=== PATIENT | male | born 1945 | race Caucasian/White ===

== ENCOUNTER → 2017-10-11 10:13 | Outpatient (CLI) | payer MEDICARE, BC, SELFPAY ==
[2017-10-12 05:15] LABS: Hemoglobin A1C% w Est Avg Glu 6.1 % (4.0-6.0)
== END ==
PROVIDERS: PCP Family Medicine; Visit Provider Family Medicine
DX: E11.9 Type 2 diabetes mellitus without complications (principal)
CPT/HCPCS: 36415; 83036

== ENCOUNTER → 2018-02-15 09:44 | Outpatient (CLI) | payer MEDICARE, BC, SELFPAY | PROVIDERS: Family Provider Family Medicine; PCP Family Medicine; Visit Provider Urology | DX: Z12.5 Encounter for screening for malignant neoplasm of prostate (principal); R39.9 Unspecified symptoms and signs involving the genitourinary system | CPT/HCPCS: 36415; 84153 ==

== ENCOUNTER 2018-07-06 07:30 | Outpatient (RCR) | payer MEDICARE, BC, SELFPAY ==
--- NOTE | 2018-01-18 18:31 | PT.OIE ---
Current Diagnoses Pain in right knee (01/18/18) Pain in left knee (01/18/18) Difficulty in walking, not elsewhere classified (01/18/18) Abnormal posture (01/18/18) Weakness (01/18/18) Presence of right artificial knee joint (01/18/18) Past Medical History (Last Updated 01/18/18 @ 16:26 by Denia Low, PT) Fusion of lumbar spine (Acute) Osteoarthritis (Acute) Painful total knee replacement, right (Acute) Past Surgical History (Last Updated 01/18/18 @ 16:20 by Denia Low, PT) History of total replacement of right shoulder joint (Acute) S/p reverse total shoulder arthroplasty (Acute) Provider Visit Care Team Role Provider Type Sourav Gamboa MD Primary Care Provider Non-Staff Specialty: Medical Address: [address] [place] [address], [id number] Email: Fabrizio Grimes MD Attending Provider Physician Specialty: Orthopedic Surgery Address: [address] [place] [address], [id number] Email: [email or web address] Physical Therapy Initial Evaluation PT-OP-A Visit Information Start: 01/18/18 13:39 Freq: Status: Active Protocol: Document 01/18/18 16:07 [facility] (Rec: 01/18/18 16:49 [facility] [id number]) Out-Patient Physical Therapy Visit Information Visit Information Visit Type Initial Evaluation Visit Start Time 16:00 Visit Stop Time 16:45 Total Visit Minutes 45 Visit Number 1/10 Number of GATE CUTTER Visits 0 PT-OP-B Current Condition Start: 01/18/18 13:39 Freq: Status: Active Protocol: Document 01/18/18 16:07 [facility] (Rec: 01/18/18 16:49 [facility] [id number]) Current Condition History of Current Condition Current Complaints B knee pain History of Current Condition Pt reports that his R knee feels very tight in the ant and lat surface distally. Pt reports L knee also gives him pain. Pain level is dependent on time of day and amount of walk, pain is between 2-4/10. Even as far as walking 100 m into a store, can create pain in knees and he has pain in B hips and it feels like he is wading through water. Reports 5 years ago he used to be able to walk 9 miles into a station, stay 9 hours then 9 miles back when he worked at the [email or web address]. Pt reports 6x/week he does about 40-50 min on recumbant bike without pain. Pt reports 2 laps (~.5 miles) in [employer] would make him very painful. Pt reports he wants to be able to walk as he used to be able to for exercise. Reports sit to stand is more difficult and from low chairs, he requires use of his UEs and is unable to get up/down from ground, which is difficulty for him d/ t wrist & shoulder pain. 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 Prior Treatments and Tests 1.5 yrs ago rehab for R TKA Treatment Goals Patient/Caregiver Goals Would like to be able to do a mile after PT and plans to cont PT program to improve that to infinate. PT-OP-C Subjective Start: 01/18/18 13:39 Freq: Status: Active Protocol: Document 01/18/18 16:07 [facility] (Rec: 01/18/18 16:49 [facility] [id number]) Patient Questionnaires Lower Extremity Functional Scale LEFS Score 42 LEFS Impairment 40 to 59% Impaired (Score 32- 47) OP-PT Pain Assessment Location B knees Pain Location Details B knees & hips Scale Used Numeric (1 - 10) Description- Other stiffness/discomfort Frequency Daily Pain Duration 7/10 when on his knees Variations/Patterns 2-4/10 Pain Aggravating Factors Sitting Walking Other Pain Aggravating Factors get out of low chair, crawling on knees, getting up from knees Other Pain Alleviating Factors heat from hands, rub it PT-OP-G Mobility & Gait Start: 01/18/18 13:39 Freq: Status: Active Protocol: Document 01/18/18 16:07 [facility] (Rec: 01/18/18 16:49 [facility] [id number]) OP Gait Assessment Comments Gait Comments Pt initiates gait with fwd & lat trunk lean. He has excessive lat leaning of trunk with gait with WB and primary use of LEs to propel himself without any trunk elevation or depression. PT-OP-J Posture/Palpation/Skin Start: 01/18/18 13:39 Freq: Status: Active Protocol: Document 01/18/18 16:07 [facility] (Rec: 01/18/18 17:48 [facility] [id number]) Posture Evaluation [facility] Postural Classification System Margaux Postural Classifications Anterior/Posterior PT-OP-K Range of Motion Start: 01/18/18 13:39 Freq: Status: Active Protocol: Document 01/18/18 16:07 [facility] (Rec: 01/18/18 16:49 [facility] [id number]) Hip Goniometric Range of Motion Hip Measured in Degrees Right Active Testing Position Supine Flexion w/Knee Flexed 95 Left Active Testing Position Supine Flexion w/Knee Flexed 113 Knee Goniometric Range of Motion Knee Measured in Degrees Right Patient Position Supine Flexion Active (degrees) 128 Extension Active (degrees) 3 Left Patient Position Supine Flexion Active (degrees) 129 Extension Active (degrees) 5 PT-OP-L Special Tests Start: 01/18/18 13:39 Freq: Status: Active Protocol: Document 01/18/18 16:07 [facility] (Rec: 01/18/18 16:49 [facility] [id number]) Special Tests Lumbar Spine Special Tests Straight Leg Raise Test Results neg B; slight tight HS with just under 90 deg L Comments about 75 deg hip flex w/ pain in post knee R & HS tightness PT-OP-M Strength Start: 01/18/18 13:39 Freq: Status: Active Protocol: Document 01/18/18 16:07 [facility] (Rec: 01/18/18 16:49 [facility] [id number]) Hip Strength Hip Manual Muscle Testing Right Flexion (L2) 4 Good Extension (S1) 4+ Good+ Abduction 3+ Fair+ External Rotation 5 Normal Internal Rotation 4+ Good+ Comments med knee pain w/ER; discomfort lat hip w/ abd with limited range Left Flexion (L2) 4 Good Extension (S1) 4 Good Abduction 3+ Fair+ External Rotation 5 Normal Internal Rotation 4+ Good+ Comments pain in LB with ext; very limited in abd ROM Knee Strength Knee Manual Muscle Testing Right Flexion (S2) 5 Normal Extension (L3) 5 Normal Left Flexion (S2) 5 Normal Extension (L3) 5 Normal Ankle/Foot Strength Ankle and Foot Manual Muscle Testing Right Dorsiflexion (L4) 5 Normal Plantarflexion (S1) 5 Normal Left Dorsiflexion (L4) 5 Normal Plantarflexion (S1) 5 Normal PT-OP-T Assessment and Plan Start: 01/18/18 13:39 Freq: Status: Active Protocol: Document 01/18/18 18:17 ML (Rec: 01/18/18 18:31 ML [id number]) Physical Therapy Assessment Rehab Potential Rehabilitation Potential Good Evaluation Complexity Number of Personal Factors/Comorbidities 3 or More Number of Body Systems Impaired 4 or More Clinical Presentation at Evaluation Evolving Impairments Impairments Activity Tolerance Balance Functional Activities Functional Mobility Gait Pain Posture ROM Soft Tissue Mobility Strength Goals 3 Impairment dec mobility Short Term Goal (STG) Pt will be able to get up from a low chair without UE support. STG Duration 02/17/18 Sole Rounder Goal (LTG) Pt will be able to walk 1 mile . LTG Duration 03/20/18 2 Impairment pain Short Term Goal (STG) Pt's pain will dec to no greater than 2/10 after short bouts of ambulation. STG Duration 02/17/18 Sole Rounder Goal (LTG) Pt's pain when on his knees will dec to 3/10 with knee pads. LTG Duration 03/20/18 1 Impairment dec strength Short Term Goal (STG) Pt will be independent with HEP in order to inc strength. STG Duration 02/17/18 Skilled Nursing Goal (LTG) Pt will have LE strength of 4/ 5 bilaterally. LTG Duration 03/20/18 Assessment Summary Assessment Pt presents to PT with bilateral hip and knee pain. Pt has pain daily, especially following activity such as walking, and severely with activities on his knees. The pt has dec strength and mobility as well as an antalgic gait. The pt desires to be able to participate in functional activities that involve those motions with the strength to do so and with less pain. Pt will benefit from skilled PT in order to achieve these goals. Physical Therapy Plan Frequency and Duration Frequency of Treatment 2x/Week Duration of Treatment 2 months Plan of Care Start Date 01/18/19 Plan of Care End Date 03/20/18 Therapeutic Interventions Therapeutic Interventions Aquatic Therapy Balance Training Coordination Training Gait Training Home Exercise Program Joint Mobilizations Manual Therapy Neuromuscular Re-education Patient/Caregiver Education Self-Care/Home Management Soft Tissue Mobilization Taping Therapeutic Activities Therapeutic Exercises Modalities Cold Pack/Ice Massage Electric Stimulation Hot Packs Infrared Therapy Iontophoresis Traction- Mechanical Ultrasound Next Visit Focus/Plan Next Note Type Treatment Note Next Visit Plan HEP (hip abd, hip ext/bridge, clamshells, rigoberto test stretch), PNF pelvis, posture
--- NOTE | 2018-01-18 18:35 | PT.OPPOC ---
Current Diagnoses Pain in right knee (01/18/18) Pain in left knee (01/18/18) Difficulty in walking, not elsewhere classified (01/18/18) Abnormal posture (01/18/18) Weakness (01/18/18) Presence of right artificial knee joint (01/18/18) Provider Visit Care Team Role Provider Type Sourav Gamboa MD Primary Care Provider Non-Staff Specialty: Medical Address: [address] [place] [address], [place], [address] Email: Fabrizio Grimes MD Attending Provider Physician Specialty: Orthopedic Surgery Address: [address] [place] [address], [place], [address] Email: .[email or web address] Plan Of Care PT-OP-T Assessment and Plan Start: 01/18/18 13:39 Freq: Status: Active Protocol: Document 01/18/18 16:07 ML (Rec: 01/18/18 18:31 ML [id number]) Physical Therapy Assessment Rehab Potential Rehabilitation Potential Good Evaluation Complexity Number of Personal Factors/Comorbidities 3 or More Number of Body Systems Impaired 4 or More Clinical Presentation at Evaluation Evolving Impairments Impairments Activity Tolerance Balance Functional Activities Functional Mobility Gait Pain Posture ROM Soft Tissue Mobility Strength Goals 3 Impairment dec mobility Short Term Goal (STG) Pt will be able to get up from a low chair without UE support. STG Duration 02/17/18 Store Product Demonstrator Goal (LTG) Pt will be able to walk 1 mile . LTG Duration 03/20/18 2 Impairment pain Short Term Goal (STG) Pt's pain will dec to no greater than 2/10 after short bouts of ambulation. STG Duration 02/17/18 Longterm Goal (LTG) Pt's pain when on his knees will dec to 3/10 with knee pads. LTG Duration 03/20/18 1 Impairment dec strength Short Term Goal (STG) Pt will be independent with HEP in order to inc strength. STG Duration 02/17/18 Longterm Goal (LTG) Pt will have LE strength of 4/ 5 bilaterally. LTG Duration 03/20/18 Assessment Summary Assessment Pt presents to PT with bilateral hip and knee pain. Pt has pain daily, especially following activity such as walking, and severely with activities on his knees. The pt has dec strength and mobility as well as an antalgic gait. The pt desires to be able to participate in functional activities that involve those motions with the strength to do so and with less pain. Pt will benefit from skilled PT in order to achieve these goals. Physical Therapy Plan Frequency and Duration Frequency of Treatment 2x/Week Duration of Treatment 2 months Plan of Care Start Date 01/18/19 Plan of Care End Date 03/20/18 Therapeutic Interventions Therapeutic Interventions Aquatic Therapy Balance Training Coordination Training Gait Training Home Exercise Program Joint Mobilizations Manual Therapy Neuromuscular Re-education Patient/Caregiver Education Self-Care/Home Management Soft Tissue Mobilization Taping Therapeutic Activities Therapeutic Exercises Modalities Cold Pack/Ice Massage Electric Stimulation Hot Packs Infrared Therapy Iontophoresis Traction- Mechanical Ultrasound Next Visit Focus/Plan Next Note Type Treatment Note Next Visit Plan HEP (hip abd, hip ext/bridge, clamshells, rigoberto test stretch), PNF pelvis, posture Plan of Care Dates Plan of Care Start Date 01/18/19 Plan of Care End Date 03/20/18 Please Sign and Return: I have reviewed this Plan of Care and certify that the skilled therapy services above are required to meet the patient?s needs. Physician Signature Date Printed Name and Credentials Clinical Instructor Signature Printed Name and Credentials
--- NOTE | 2018-01-25 12:04 | PT.OTN ---
Current Diagnoses Presence of right artificial knee joint (01/25/18) Physical Therapy Treatment Note PT-OP-A Visit Information Start: 01/18/18 13:39 Freq: Status: Active Protocol: Document 01/25/18 11:37 ML (Rec: 01/25/18 11:44 ML [id number]) Out-Patient Physical Therapy Visit Information Visit Information Visit Type Treatment Note Visit Start Time 08:15 Visit Stop Time 09:00 Total Visit Minutes 45 Visit Number 2/10 Number of ED TEACHER Visits 0 PT-OP-B Current Condition Start: 01/18/18 13:39 Freq: Status: Active Protocol: Document 01/18/18 16:07 [facility] (Rec: 01/18/18 16:49 [facility] [id number]) Current Condition History of Current Condition Current Complaints B knee pain History of Current Condition Pt reports that his R knee feels very tight in the ant and lat surface distally. Pt reports L knee also gives him pain. Pain level is dependent on time of day and amount of walk, pain is between 2-4/10. Even as far as walking 100 m into a store, can create pain in knees and he has pain in B hips and it feels like he is wading through water. Reports 5 years ago he used to be able to walk 9 miles into a station, stay 9 hours then 9 miles back when he worked at the [employer]. Pt reports 6x/week he does about 40-50 min on recumbant bike without pain. Pt reports 2 laps (~.5 miles) in [employer] would make him very painful. Pt reports he wants to be able to walk as he used to be able to for exercise. Reports sit to stand is more difficult and from low chairs, he requires use of his UEs and is unable to get up/down from ground, which is difficulty for him d/ t wrist & shoulder pain. 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 Prior Treatments and Tests 1.5 yrs ago rehab for R TKA Treatment Goals Patient/Caregiver Goals Would like to be able to do a mile after PT and plans to cont PT program to improve that to infinate. PT-OP-C Subjective Start: 01/18/18 13:39 Freq: Status: Active Protocol: Document 01/25/18 11:37 ML (Rec: 01/25/18 11:44 ML [id number]) OP-PT Subjective Patient Comments Patient Comments Pt notes that he really is trying to acheive desired motions in therapy during posture retraining, but has difficulty figuring out how to achieve the correct position. PT-OP-G Mobility & Gait Start: 01/18/18 13:39 Freq: Status: Active Protocol: Document 01/18/18 16:07 [facility] (Rec: 01/18/18 16:49 [facility] [id number]) OP Gait Assessment Comments Gait Comments Pt initiates gait with fwd & lat trunk lean. He has excessive lat leaning of trunk with gait with WB and primary use of LEs to propel himself without any trunk elevation or depression. PT-OP-J Posture/Palpation/Skin Start: 01/18/18 13:39 Freq: Status: Active Protocol: Document 01/18/18 16:07 [facility] (Rec: 01/18/18 17:48 [facility] [id number]) Posture Evaluation Margaux Postural Classification System Margaux Postural Classifications Anterior/Posterior PT-OP-K Range of Motion Start: 01/18/18 13:39 Freq: Status: Active Protocol: Document 01/18/18 16:07 [facility] (Rec: 01/18/18 16:49 [facility] [id number]) Hip Goniometric Range of Motion Hip Measured in Degrees Right Active Testing Position Supine Flexion w/Knee Flexed 95 Left Active Testing Position Supine Flexion w/Knee Flexed 113 Knee Goniometric Range of Motion Knee Measured in Degrees Right Patient Position Supine Flexion Active (degrees) 128 Extension Active (degrees) 3 Left Patient Position Supine Flexion Active (degrees) 129 Extension Active (degrees) 5 PT-OP-L Special Tests Start: 01/18/18 13:39 Freq: Status: Active Protocol: Document 01/18/18 16:07 [facility] (Rec: 01/18/18 16:49 [facility] [id number]) Special Tests Lumbar Spine Special Tests Straight Leg Raise Test Results neg B; slight tight HS with just under 90 deg L Comments about 75 deg hip flex w/ pain in post knee R & HS tightness PT-OP-M Strength Start: 01/18/18 13:39 Freq: Status: Active Protocol: Document 01/18/18 16:07 [facility] (Rec: 01/18/18 16:49 [facility] [id number]) Hip Strength Hip Manual Muscle Testing Right Flexion (L2) 4 Good Extension (S1) 4+ Good+ Abduction 3+ Fair+ External Rotation 5 Normal Internal Rotation 4+ Good+ Comments med knee pain w/ER; discomfort lat hip w/ abd with limited range Left Flexion (L2) 4 Good Extension (S1) 4 Good Abduction 3+ Fair+ External Rotation 5 Normal Internal Rotation 4+ Good+ Comments pain in LB with ext; very limited in abd ROM Knee Strength Knee Manual Muscle Testing Right Flexion (S2) 5 Normal Extension (L3) 5 Normal Left Flexion (S2) 5 Normal Extension (L3) 5 Normal Ankle/Foot Strength Ankle and Foot Manual Muscle Testing Right Dorsiflexion (L4) 5 Normal Plantarflexion (S1) 5 Normal Left Dorsiflexion (L4) 5 Normal Plantarflexion (S1) 5 Normal PT-OP-Q Treatments Start: 01/18/18 13:39 Freq: Status: Active Protocol: Document 01/25/18 11:37 ML (Rec: 01/25/18 11:44 ML [id number]) Therapeutic Exercises Supine Exercises rigoberto test stretch Supine Exercise Name rigoberto test stretch Comments HEP; 30 sec hold; cues for protecting back marching Supine Exercise Name marching Comments HEP; cue for core engagement; no legs touching ground; alt leg motion hip flex isometric Supine Exercise Name bilateral hip flex isometric for core engagement Comments HEP; 30 sec hold Sidelying Exercises clamshells Sidelying Exercise Name clamshells Side bilateral Resistance lvl 1 Comments HEP; cues for neutral positioning; limit resistance due to med knee pain hip abd Sidelying Exercise Name hip abd Comments HEP; cues for neutral positioning Self-Care/Home Management Treatment Education Patient Education Posture Other Education HEP; sitting posture; lots of cues for wt forward in feet also while relaxing low back muscles PT-OP-T Assessment and Plan Start: 01/18/18 13:39 Freq: Status: Active Protocol: Document 01/25/18 11:37 ML (Rec: 01/25/18 11:44 ML [id number]) Physical Therapy Assessment Goals 3 Impairment dec mobility Short Term Goal (STG) Pt will be able to get up from a low chair without UE support. STG Duration 02/17/18 Body Engineer Goal (LTG) Pt will be able to walk 1 mile . LTG Duration 03/20/18 2 Impairment pain Short Term Goal (STG) Pt's pain will dec to no greater than 2/10 after short bouts of ambulation. STG Duration 02/17/18 Assisted Goal (LTG) Pt's pain when on his knees will dec to 3/10 with knee pads. LTG Duration 03/20/18 1 Impairment dec strength Short Term Goal (STG) Pt will be independent with HEP in order to inc strength. STG Duration 02/17/18 Assisted Goal (LTG) Pt will have LE strength of 4/ 5 bilaterally. LTG Duration 03/20/18 Assessment Summary Assessment Pt had difficulty to achieve appropriate posture positioning but improved through progression and cueing of each correction. Pt was able to demonstrate HEP appropriately, and modifications were made in order for correct mechanics and muscle activation. Physical Therapy Plan Frequency and Duration Frequency of Treatment 2x/Week Duration of Treatment 2 months Plan of Care Start Date 01/18/19 Plan of Care End Date 03/20/18 Next Visit Focus/Plan Next Note Type Treatment Note Next Visit Plan check on HEP; PNF pelvis; posture supported sitting and standing; IT band tightness soft tissue
--- NOTE | 2018-01-27 13:44 | PT.OTN ---
Current Diagnoses Presence of right artificial knee joint (01/27/18) Physical Therapy Treatment Note PT-OP-A Visit Information Start: 01/18/18 13:39 Freq: Status: Active Protocol: Document 01/27/18 08:13 ML (Rec: 01/27/18 08:15 ML [id number]) Out-Patient Physical Therapy Visit Information Visit Information Visit Type Treatment Note Visit Start Time 07:30 Visit Stop Time 08:13 Total Visit Minutes 43 Visit Number 3/10 Number of SHEEP STICKER Visits 0 PT-OP-B Current Condition Start: 01/18/18 13:39 Freq: Status: Active Protocol: Document 01/18/18 16:07 [facility] (Rec: 01/18/18 16:49 LR [id number]) Current Condition History of Current Condition Current Complaints B knee pain History of Current Condition Pt reports that his R knee feels very tight in the ant and lat surface distally. Pt reports L knee also gives him pain. Pain level is dependent on time of day and amount of walk, pain is between 2-4/10. Even as far as walking 100 m into a store, can create pain in knees and he has pain in B hips and it feels like he is wading through water. Reports 5 years ago he used to be able to walk 9 miles into a station, stay 9 hours then 9 miles back when he worked at the [employer]. Pt reports 6x/week he does about 40-50 min on recumbant bike without pain. Pt reports 2 laps (~.5 miles) in [employer] would make him very painful. Pt reports he wants to be able to walk as he used to be able to for exercise. Reports sit to stand is more difficult and from low chairs, he requires use of his UEs and is unable to get up/down from ground, which is difficulty for him d/ t wrist & shoulder pain. 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 Prior Treatments and Tests 1.5 yrs ago rehab for R TKA Treatment Goals Patient/Caregiver Goals Would like to be able to do a mile after PT and plans to cont PT program to improve that to infinate. PT-OP-C Subjective Start: 01/18/18 13:39 Freq: Status: Active Protocol: Document 01/27/18 08:13 ML (Rec: 01/27/18 08:45 ML [id number]) OP-PT Subjective Patient Comments Patient Comments Pt reports he has gout like symptoms that comes and goes, but is not gout, but treated like gout. Pt affirms that he does not believe it was from treatment during his last vist since we did not do any activities that involved ROM of his foot or ankle and we did no activity in WB. PT-OP-G Mobility & Gait Start: 01/18/18 13:39 Freq: Status: Active Protocol: Document 01/18/18 16:07 [facility] (Rec: 01/18/18 16:49 [facility] [id number]) OP Gait Assessment Comments Gait Comments Pt initiates gait with fwd & lat trunk lean. He has excessive lat leaning of trunk with gait with WB and primary use of LEs to propel himself without any trunk elevation or depression. PT-OP-J Posture/Palpation/Skin Start: 01/18/18 13:39 Freq: Status: Active Protocol: Document 01/18/18 16:07 [facility] (Rec: 01/18/18 17:48 [facility] [id number]) Posture Evaluation [facility] Postural Classification System Margaux Postural Classifications Anterior/Posterior PT-OP-K Range of Motion Start: 01/18/18 13:39 Freq: Status: Active Protocol: Document 01/18/18 16:07 [facility] (Rec: 01/18/18 16:49 [facility] [id number]) Hip Goniometric Range of Motion Hip Measured in Degrees Right Active Testing Position Supine Flexion w/Knee Flexed 95 Left Active Testing Position Supine Flexion w/Knee Flexed 113 Knee Goniometric Range of Motion Knee Measured in Degrees Right Patient Position Supine Flexion Active (degrees) 128 Extension Active (degrees) 3 Left Patient Position Supine Flexion Active (degrees) 129 Extension Active (degrees) 5 PT-OP-L Special Tests Start: 01/18/18 13:39 Freq: Status: Active Protocol: Document 01/18/18 16:07 [facility] (Rec: 01/18/18 16:49 [facility] [id number]) Special Tests Lumbar Spine Special Tests Straight Leg Raise Test Results neg B; slight tight HS with just under 90 deg L Comments about 75 deg hip flex w/ pain in post knee R & HS tightness PT-OP-M Strength Start: 01/18/18 13:39 Freq: Status: Active Protocol: Document 01/18/18 16:07 [facility] (Rec: 01/18/18 16:49 [facility] [id number]) Hip Strength Hip Manual Muscle Testing Right Flexion (L2) 4 Good Extension (S1) 4+ Good+ Abduction 3+ Fair+ External Rotation 5 Normal Internal Rotation 4+ Good+ Comments med knee pain w/ER; discomfort lat hip w/ abd with limited range Left Flexion (L2) 4 Good Extension (S1) 4 Good Abduction 3+ Fair+ External Rotation 5 Normal Internal Rotation 4+ Good+ Comments pain in LB with ext; very limited in abd ROM Knee Strength Knee Manual Muscle Testing Right Flexion (S2) 5 Normal Extension (L3) 5 Normal Left Flexion (S2) 5 Normal Extension (L3) 5 Normal Ankle/Foot Strength Ankle and Foot Manual Muscle Testing Right Dorsiflexion (L4) 5 Normal Plantarflexion (S1) 5 Normal Left Dorsiflexion (L4) 5 Normal Plantarflexion (S1) 5 Normal PT-OP-Q Treatments Start: 01/18/18 13:39 Freq: Status: Active Protocol: Document 01/27/18 08:13 ML (Rec: 01/27/18 08:45 ML [id number]) Therapeutic Exercises Supine Exercises rigoberto test stretch Supine Exercise Name rigoberto test stretch Reps/Minutes just reviewed 3-5x Comments HEP; 30 sec hold; cues for protecting back marching Supine Exercise Name marching Reps/Minutes just reviewed 3-5x Comments HEP; cue for core engagement; no legs touching ground; alt leg motion hip flex isometric Supine Exercise Name bilateral hip flex isometric for core engagement Reps/Minutes just reviewed 3-5x Comments HEP; 30 sec hold Sidelying Exercises clamshells Sidelying Exercise Name clamshells Side bilateral Resistance lvl 1 Reps/Minutes just reviewed 3-5x Comments HEP; cues for neutral positioning; limit resistance due to med knee pain hip abd Sidelying Exercise Name hip abd Reps/Minutes just reviewed 3-5x Comments HEP; cues for neutral positioning Standing Exercises gait press at wall Standing Exercise Name gait press at wall Comments L leg hip flex only; HEP Neuro Re-Education Treatment Other Activities Ant elev/post depress Details ant elevation and post depression of pelvis COI Comments R only; faciliation with isometric holds and eccentric lengthening for re-educating pelvis mobility Self-Care/Home Management Treatment Education Patient Education Posture Other Education reviewed HEP; sitting unsupported posture; lots of cues for wt forward in feet also while relaxing low back muscles PT-OP-T Assessment and Plan Start: 01/18/18 13:39 Freq: Status: Active Protocol: Document 01/27/18 08:13 ML (Rec: 01/27/18 08:15 ML [id number]) Physical Therapy Assessment Goals 3 Impairment dec mobility Short Term Goal (STG) Pt will be able to get up from a low chair without UE support. STG Duration 02/17/18 [employer] Goal (LTG) Pt will be able to walk 1 mile . LTG Duration 03/20/18 2 Impairment pain Short Term Goal (STG) Pt's pain will dec to no greater than 2/10 after short bouts of ambulation. STG Duration 02/17/18 Nursing Home Goal (LTG) Pt's pain when on his knees will dec to 3/10 with knee pads. LTG Duration 03/20/18 1 Impairment dec strength Short Term Goal (STG) Pt will be independent with HEP in order to inc strength. STG Duration 02/17/18 Nursing Home Goal (LTG) Pt will have LE strength of 4/ 5 bilaterally. LTG Duration 03/20/18 Assessment Summary Assessment Pt needed to review his exercise with the exercise sheet and still required multiple corrections for which legs to use, when to hold, and correct positioning. Pt mentioned that he was unable to get band around knees, so he compromised with putting ankle wts at knees which worked well and was a good challenge. Pt continued to need cues for good posture, but was able to make corrections. Pt gained pelvic mobility through neuro re-ed and was able to perform gait press at wall in order to maintain the gained motion at home with appropriate motions. Physical Therapy Plan Frequency and Duration Frequency of Treatment 2x/Week Duration of Treatment 2 months Plan of Care Start Date 01/18/19 Plan of Care End Date 03/20/18 Next Visit Focus/Plan Next Note Type Treatment Note Next Visit Plan check on HEP; PNF pelvis; posture supported sitting and standing; IT band tightness soft tissue
--- NOTE | 2018-01-30 13:37 | PT.OTN ---
Current Diagnoses Presence of right artificial knee joint (01/30/18) Physical Therapy Treatment Note PT-OP-A Visit Information Start: 01/18/18 13:39 Freq: Status: Active Protocol: Document 01/30/18 10:34 ML (Rec: 01/30/18 11:15 ML [id number]) Out-Patient Physical Therapy Visit Information Visit Information Visit Type Treatment Note Visit Start Time 10:32 Visit Stop Time 11:15 Total Visit Minutes 43 Visit Number 4/10 Number of MATH INSTRUCTOR Visits 0 PT-OP-B Current Condition Start: 01/18/18 13:39 Freq: Status: Active Protocol: Document 01/18/18 16:07 [facility] (Rec: 01/18/18 16:49 [facility] [id number]) Current Condition History of Current Condition Current Complaints B knee pain History of Current Condition Pt reports that his R knee feels very tight in the ant and lat surface distally. Pt reports L knee also gives him pain. Pain level is dependent on time of day and amount of walk, pain is between 2-4/10. Even as far as walking 100 m into a store, can create pain in knees and he has pain in B hips and it feels like he is wading through water. Reports 5 years ago he used to be able to walk 9 miles into a station, stay 9 hours then 9 miles back when he worked at the [employer]. Pt reports 6x/week he does about 40-50 min on recumbant bike without pain. Pt reports 2 laps (~.5 miles) in [employer] would make him very painful. Pt reports he wants to be able to walk as he used to be able to for exercise. Reports sit to stand is more difficult and from low chairs, he requires use of his UEs and is unable to get up/down from ground, which is difficulty for him d/ t wrist & shoulder pain. 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 Prior Treatments and Tests 1.5 yrs ago rehab for R TKA Treatment Goals Patient/Caregiver Goals Would like to be able to do a mile after PT and plans to cont PT program to improve that to infinate. PT-OP-C Subjective Start: 01/18/18 13:39 Freq: Status: Active Protocol: Document 01/30/18 10:34 ML (Rec: 01/30/18 12:28 ML [id number]) OP-PT Subjective Patient Comments Patient Comments Pt notes that the stairs nicky way easier after his pevlis re-ed last visit. PT-OP-G Mobility & Gait Start: 01/18/18 13:39 Freq: Status: Active Protocol: Document 01/18/18 16:07 [facility] (Rec: 01/18/18 16:49 [facility] [id number]) OP Gait Assessment Comments Gait Comments Pt initiates gait with fwd & lat trunk lean. He has excessive lat leaning of trunk with gait with WB and primary use of LEs to propel himself without any trunk elevation or depression. PT-OP-J Posture/Palpation/Skin Start: 01/18/18 13:39 Freq: Status: Active Protocol: Document 01/18/18 16:07 [facility] (Rec: 01/18/18 17:48 [facility] [id number]) Posture Evaluation [facility] Postural Classification System Margaux Postural Classifications Anterior/Posterior PT-OP-K Range of Motion Start: 01/18/18 13:39 Freq: Status: Active Protocol: Document 01/18/18 16:07 [facility] (Rec: 01/18/18 16:49 [facility] [id number]) Hip Goniometric Range of Motion Hip Measured in Degrees Right Active Testing Position Supine Flexion w/Knee Flexed 95 Left Active Testing Position Supine Flexion w/Knee Flexed 113 Knee Goniometric Range of Motion Knee Measured in Degrees Right Patient Position Supine Flexion Active (degrees) 128 Extension Active (degrees) 3 Left Patient Position Supine Flexion Active (degrees) 129 Extension Active (degrees) 5 PT-OP-L Special Tests Start: 01/18/18 13:39 Freq: Status: Active Protocol: Document 01/18/18 16:07 [facility] (Rec: 01/18/18 16:49 [facility] [id number]) Special Tests Lumbar Spine Special Tests Straight Leg Raise Test Results neg B; slight tight HS with just under 90 deg L Comments about 75 deg hip flex w/ pain in post knee R & HS tightness PT-OP-M Strength Start: 01/18/18 13:39 Freq: Status: Active Protocol: Document 01/18/18 16:07 [facility] (Rec: 01/18/18 16:49 [facility] [id number]) Hip Strength Hip Manual Muscle Testing Right Flexion (L2) 4 Good Extension (S1) 4+ Good+ Abduction 3+ Fair+ External Rotation 5 Normal Internal Rotation 4+ Good+ Comments med knee pain w/ER; discomfort lat hip w/ abd with limited range Left Flexion (L2) 4 Good Extension (S1) 4 Good Abduction 3+ Fair+ External Rotation 5 Normal Internal Rotation 4+ Good+ Comments pain in LB with ext; very limited in abd ROM Knee Strength Knee Manual Muscle Testing Right Flexion (S2) 5 Normal Extension (L3) 5 Normal Left Flexion (S2) 5 Normal Extension (L3) 5 Normal Ankle/Foot Strength Ankle and Foot Manual Muscle Testing Right Dorsiflexion (L4) 5 Normal Plantarflexion (S1) 5 Normal Left Dorsiflexion (L4) 5 Normal Plantarflexion (S1) 5 Normal PT-OP-Q Treatments Start: 01/18/18 13:39 Freq: Status: Active Protocol: Document 01/30/18 10:34 ML (Rec: 01/30/18 12:28 ML [id number]) Therapeutic Exercises Supine Exercises rigoberto test stretch Supine Exercise Name rigoberto test stretch Reps/Minutes just reviewed 1-3x Comments HEP; 30 sec hold; cues for protecting back marching Supine Exercise Name marching Reps/Minutes just reviewed 1-3x Comments HEP; cue for core engagement; no legs touching ground; alt leg motion hip flex isometric Supine Exercise Name bilateral hip flex isometric for core engagement Reps/Minutes just reviewed 1-3x Comments HEP; 30 sec hold Sidelying Exercises clamshells Sidelying Exercise Name clamshells Side bilateral Resistance lvl 1 Reps/Minutes just reviewed 1-3x Comments HEP; cues for neutral positioning; limit resistance due to med knee pain hip abd Sidelying Exercise Name hip abd Reps/Minutes just reviewed 1-3x Comments HEP; cues for neutral positioning Standing Exercises gait press at wall Standing Exercise Name gait press at wall Comments bilat; HEP; added heel lower and raise; for pelvis neuro re -ed Neuro Re-Education Treatment Other Activities Ant elev/post depress Details ant elevation and post depression of pelvis COI Comments L only; faciliation with isometric holds and eccentric lengthening for re-educating pelvis mobility; UE assistance for irradiation and trunk flex/ext pattern PT-OP-T Assessment and Plan Start: 01/18/18 13:39 Freq: Status: Active Protocol: Document 01/30/18 10:34 ML (Rec: 01/30/18 12:28 ML [id number]) Physical Therapy Assessment Goals 3 Impairment dec mobility Short Term Goal (STG) Pt will be able to get up from a low chair without UE support. STG Duration 02/17/18 [facility] Goal (LTG) Pt will be able to walk 1 mile . LTG Duration 03/20/18 2 Impairment pain Short Term Goal (STG) Pt's pain will dec to no greater than 2/10 after short bouts of ambulation. STG Duration 02/17/18 [facility] Goal (LTG) Pt's pain when on his knees will dec to 3/10 with knee pads. LTG Duration 03/20/18 1 Impairment dec strength Short Term Goal (STG) Pt will be independent with HEP in order to inc strength. STG Duration 02/17/18 Park Activities Coordinator Goal (LTG) Pt will have LE strength of 4/ 5 bilaterally. LTG Duration 03/20/18 Assessment Summary Assessment Pt still required some cueing and correction to appropriately demonstrate HEP program exercises. Pt had difficulty acheiving neuro re- ed of pevlis on L, but improved with UE involvement. pt was able to progress wall exercise for his pelvis with min corrections. Physical Therapy Plan Frequency and Duration Frequency of Treatment 2x/Week Duration of Treatment 2 months Plan of Care Start Date 01/18/19 Plan of Care End Date 03/20/18 Next Visit Focus/Plan Next Note Type Treatment Note Next Visit Plan check on HEP; PNF pelvis bilat ; involve re-ed through gait; posture supported sitting and standing; IT band tightness soft tissue
--- NOTE | 2018-02-01 18:19 | PT.OTN ---
Current Diagnoses Presence of right artificial knee joint (02/01/18) Physical Therapy Treatment Note PT-OP-A Visit Information Start: 01/18/18 13:39 Freq: Status: Active Protocol: Document 02/01/18 11:57 ML (Rec: 02/01/18 12:01 ML [id number]) Out-Patient Physical Therapy Visit Information Visit Information Visit Type Treatment Note Visit Start Time 07:30 Visit Stop Time 08:15 Total Visit Minutes 45 Visit Number 5/10 Number of FILM COATER Visits 0 PT-OP-B Current Condition Start: 01/18/18 13:39 Freq: Status: Active Protocol: Document 01/18/18 16:07 [facility] (Rec: 01/18/18 16:49 [facility] [id number]) Current Condition History of Current Condition Current Complaints B knee pain History of Current Condition Pt reports that his R knee feels very tight in the ant and lat surface distally. Pt reports L knee also gives him pain. Pain level is dependent on time of day and amount of walk, pain is between 2-4/10. Even as far as walking 100 m into a store, can create pain in knees and he has pain in B hips and it feels like he is wading through water. Reports 5 years ago he used to be able to walk 9 miles into a station, stay 9 hours then 9 miles back when he worked at the [employer]. Pt reports 6x/week he does about 40-50 min on recumbant bike without pain. Pt reports 2 laps (~.5 miles) in [employer] would make him very painful. Pt reports he wants to be able to walk as he used to be able to for exercise. Reports sit to stand is more difficult and from low chairs, he requires use of his UEs and is unable to get up/down from ground, which is difficulty for him d/ t wrist & shoulder pain. 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 Prior Treatments and Tests 1.5 yrs ago rehab for R TKA Treatment Goals Patient/Caregiver Goals Would like to be able to do a mile after PT and plans to cont PT program to improve that to infinate. PT-OP-C Subjective Start: 01/18/18 13:39 Freq: Status: Active Protocol: Document 02/01/18 11:57 ML (Rec: 02/01/18 12:01 ML [id number]) OP-PT Subjective Patient Comments Patient Comments Pt notes that the pelvis mobility contines to help his mobility with stairs. PT-OP-G Mobility & Gait Start: 01/18/18 13:39 Freq: Status: Active Protocol: Document 01/18/18 16:07 [facility] (Rec: 01/18/18 16:49 [facility] [id number]) OP Gait Assessment Comments Gait Comments Pt initiates gait with fwd & lat trunk lean. He has excessive lat leaning of trunk with gait with WB and primary use of LEs to propel himself without any trunk elevation or depression. PT-OP-J Posture/Palpation/Skin Start: 01/18/18 13:39 Freq: Status: Active Protocol: Document 01/18/18 16:07 [facility] (Rec: 01/18/18 17:48 [facility] [id number]) Posture Evaluation [facility] Postural Classification System [facility] Postural Classifications Anterior/Posterior PT-OP-K Range of Motion Start: 01/18/18 13:39 Freq: Status: Active Protocol: Document 01/18/18 16:07 [facility] (Rec: 01/18/18 16:49 [facility] [id number]) Hip Goniometric Range of Motion Hip Measured in Degrees Right Active Testing Position Supine Flexion w/Knee Flexed 95 Left Active Testing Position Supine Flexion w/Knee Flexed 113 Knee Goniometric Range of Motion Knee Measured in Degrees Right Patient Position Supine Flexion Active (degrees) 128 Extension Active (degrees) 3 Left Patient Position Supine Flexion Active (degrees) 129 Extension Active (degrees) 5 PT-OP-L Special Tests Start: 01/18/18 13:39 Freq: Status: Active Protocol: Document 01/18/18 16:07 [facility] (Rec: 01/18/18 16:49 [facility] [id number]) Special Tests Lumbar Spine Special Tests Straight Leg Raise Test Results neg B; slight tight HS with just under 90 deg L Comments about 75 deg hip flex w/ pain in post knee R & HS tightness PT-OP-M Strength Start: 01/18/18 13:39 Freq: Status: Active Protocol: Document 01/18/18 16:07 [facility] (Rec: 01/18/18 16:49 [facility] [id number]) Hip Strength Hip Manual Muscle Testing Right Flexion (L2) 4 Good Extension (S1) 4+ Good+ Abduction 3+ Fair+ External Rotation 5 Normal Internal Rotation 4+ Good+ Comments med knee pain w/ER; discomfort lat hip w/ abd with limited range Left Flexion (L2) 4 Good Extension (S1) 4 Good Abduction 3+ Fair+ External Rotation 5 Normal Internal Rotation 4+ Good+ Comments pain in LB with ext; very limited in abd ROM Knee Strength Knee Manual Muscle Testing Right Flexion (S2) 5 Normal Extension (L3) 5 Normal Left Flexion (S2) 5 Normal Extension (L3) 5 Normal Ankle/Foot Strength Ankle and Foot Manual Muscle Testing Right Dorsiflexion (L4) 5 Normal Plantarflexion (S1) 5 Normal Left Dorsiflexion (L4) 5 Normal Plantarflexion (S1) 5 Normal PT-OP-Q Treatments Start: 01/18/18 13:39 Freq: Status: Active Protocol: Document 02/01/18 11:57 ML (Rec: 02/01/18 18:10 ML [id number]) Gym Equipment Shuttle Recovery bilat squat Details R knee pain; partially eliminated through tactile adjustments Resistance 100 and 125 Therapeutic Exercises Supine Exercises marching Supine Exercise Name marching Reps/Minutes just reviewed 1-3x Comments HEP; cue for core engagement; no legs touching ground; alt leg motion hip flex isometric Supine Exercise Name bilateral hip flex isometric for core engagement Reps/Minutes just reviewed 1-3x Comments HEP; 30 sec hold Standing Exercises squats Standing Exercise Name squats Equipment Used bar Comments cues for knee position and appropriate wt shifting sit to stand Standing Exercise Name sit to stand Comments cues for knee position and using UE support appropriately gait press at wall Standing Exercise Name gait press at wall Reps/Minutes reviewed 1-2x bilat Comments bilat; HEP; added heel lower and raise; for pelvis neuro re -ed Gait Training Gait Activity stairs Description with rail Comments cues to use R hand and then L hand on rail, both up and down ; terminated due to pain on descend Manual Therapy Treatment Soft Tissue Mobilization IT band Body Location R Comments active DF/PF adductors Body Location adductors Comments R; active Df/PF PT-OP-T Assessment and Plan Start: 01/18/18 13:39 Freq: Status: Active Protocol: Document 02/01/18 11:57 ML (Rec: 02/01/18 12:01 ML [id number]) Physical Therapy Assessment Goals 3 Impairment dec mobility Short Term Goal (STG) Pt will be able to get up from a low chair without UE support. STG Duration 02/17/18 Pediatric Ophthalmologist Goal (LTG) Pt will be able to walk 1 mile . LTG Duration 03/20/18 2 Impairment pain Short Term Goal (STG) Pt's pain will dec to no greater than 2/10 after short bouts of ambulation. STG Duration 02/17/18 Pediatric Ophthalmologist Goal (LTG) Pt's pain when on his knees will dec to 3/10 with knee pads. LTG Duration 03/20/18 1 Impairment dec strength Short Term Goal (STG) Pt will be independent with HEP in order to inc strength. STG Duration 02/17/18 Long-Term Goal (LTG) Pt will have LE strength of 4/ 5 bilaterally. LTG Duration 03/20/18 Assessment Summary Assessment Pt improved in his ability to demonstrate HEP. Pt's mechanics for STS where addressed, and he was able to perform with dec pain. pt's strength is still a limited factor for STS mechancis which was addressed with the shuttle recovery and squats. pt notes R knee pain with shuttle recovery which was addressed with manual work. Physical Therapy Plan Frequency and Duration Frequency of Treatment 2x/Week Duration of Treatment 2 months Plan of Care Start Date 01/18/19 Plan of Care End Date 03/20/18 Next Visit Focus/Plan Next Note Type Treatment Note Next Visit Plan PNF pelvis bilat; strengthen for STS; assess knee pain; soft tissue prn R; involve re -ed through gait; posture supported sitting and standing ; IT band tightness soft tissue
--- NOTE | 2018-02-07 16:49 | PT.OTN ---
Current Diagnoses Presence of right artificial knee joint (02/07/18) Physical Therapy Treatment Note PT-OP-A Visit Information Start: 01/18/18 13:39 Freq: Status: Active Protocol: Document 02/07/18 12:51 ML (Rec: 02/07/18 12:58 ML [email or web address]) Out-Patient Physical Therapy Visit Information Visit Information Visit Type Treatment Note Visit Start Time 09:45 Visit Stop Time 10:30 Total Visit Minutes 45 Visit Number 6/10 Number of MINIATURE MODEL MAKER Visits 0 PT-OP-B Current Condition Start: 01/18/18 13:39 Freq: Status: Active Protocol: Document 01/18/18 16:07 [facility] (Rec: 01/18/18 16:49 [facility] [id number]) Current Condition History of Current Condition Current Complaints B knee pain History of Current Condition Pt reports that his R knee feels very tight in the ant and lat surface distally. Pt reports L knee also gives him pain. Pain level is dependent on time of day and amount of walk, pain is between 2-4/10. Even as far as walking 100 m into a store, can create pain in knees and he has pain in B hips and it feels like he is wading through water. Reports 5 years ago he used to be able to walk 9 miles into a station, stay 9 hours then 9 miles back when he worked at the [employer]. Pt reports 6x/week he does about 40-50 min on recumbant bike without pain. Pt reports 2 laps (~.5 miles) in [employer] would make him very painful. Pt reports he wants to be able to walk as he used to be able to for exercise. Reports sit to stand is more difficult and from low chairs, he requires use of his UEs and is unable to get up/down from ground, which is difficulty for him d/ t wrist & shoulder pain. 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 Prior Treatments and Tests 1.5 yrs ago rehab for R TKA Treatment Goals Patient/Caregiver Goals Would like to be able to do a mile after PT and plans to cont PT program to improve that to infinate. PT-OP-C Subjective Start: 01/18/18 13:39 Freq: Status: Active Protocol: Document 02/07/18 12:51 ML (Rec: 02/07/18 12:58 ML [id number]) OP-PT Subjective Patient Comments Patient Comments Pt notes that he did not practice his mechanics for sit to stand, but that he did note a bit of tightness through the medial side of his R thigh. PT-OP-G Mobility & Gait Start: 01/18/18 13:39 Freq: Status: Active Protocol: Document 01/18/18 16:07 [facility] (Rec: 01/18/18 16:49 [facility] [id number]) OP Gait Assessment Comments Gait Comments Pt initiates gait with fwd & lat trunk lean. He has excessive lat leaning of trunk with gait with WB and primary use of LEs to propel himself without any trunk elevation or depression. PT-OP-J Posture/Palpation/Skin Start: 01/18/18 13:39 Freq: Status: Active Protocol: Document 01/18/18 16:07 [facility] (Rec: 01/18/18 17:48 [facility] [id number]) Posture Evaluation [facility] Postural Classification System [facility] Postural Classifications Anterior/Posterior PT-OP-K Range of Motion Start: 01/18/18 13:39 Freq: Status: Active Protocol: Document 01/18/18 16:07 [facility] (Rec: 01/18/18 16:49 [facility] [id number]) Hip Goniometric Range of Motion Hip Measured in Degrees Right Active Testing Position Supine Flexion w/Knee Flexed 95 Left Active Testing Position Supine Flexion w/Knee Flexed 113 Knee Goniometric Range of Motion Knee Measured in Degrees Right Patient Position Supine Flexion Active (degrees) 128 Extension Active (degrees) 3 Left Patient Position Supine Flexion Active (degrees) 129 Extension Active (degrees) 5 PT-OP-L Special Tests Start: 01/18/18 13:39 Freq: Status: Active Protocol: Document 01/18/18 16:07 [facility] (Rec: 01/18/18 16:49 [facility] [id number]) Special Tests Lumbar Spine Special Tests Straight Leg Raise Test Results neg B; slight tight HS with just under 90 deg L Comments about 75 deg hip flex w/ pain in post knee R & HS tightness PT-OP-M Strength Start: 01/18/18 13:39 Freq: Status: Active Protocol: Document 01/18/18 16:07 [facility] (Rec: 01/18/18 16:49 [facility] [id number]) Hip Strength Hip Manual Muscle Testing Right Flexion (L2) 4 Good Extension (S1) 4+ Good+ Abduction 3+ Fair+ External Rotation 5 Normal Internal Rotation 4+ Good+ Comments med knee pain w/ER; discomfort lat hip w/ abd with limited range Left Flexion (L2) 4 Good Extension (S1) 4 Good Abduction 3+ Fair+ External Rotation 5 Normal Internal Rotation 4+ Good+ Comments pain in LB with ext; very limited in abd ROM Knee Strength Knee Manual Muscle Testing Right Flexion (S2) 5 Normal Extension (L3) 5 Normal Left Flexion (S2) 5 Normal Extension (L3) 5 Normal Ankle/Foot Strength Ankle and Foot Manual Muscle Testing Right Dorsiflexion (L4) 5 Normal Plantarflexion (S1) 5 Normal Left Dorsiflexion (L4) 5 Normal Plantarflexion (S1) 5 Normal PT-OP-Q Treatments Start: 01/18/18 13:39 Freq: Status: Active Protocol: Document 02/07/18 12:51 ML (Rec: 02/07/18 16:31 ML [id number]) Gym Equipment Shuttle Recovery unilat heel raise Details R only; knee flex (pain) and knee ext (difficult) Resistance 75 bilat squat Details adductor tightness and achilles pain Resistance 150 Therapeutic Exercises Standing Exercises sit to stand Standing Exercise Name sit to stand Reps/Minutes reviewed Comments cues for stance position Manual Therapy Treatment Soft Tissue Mobilization Achilles Body Location R Comments active DF/PF adductors Body Location adductors Comments R; active Df/PF Joint Mobilizations calcaneus Joint R Direction med tilt/glide and distraction Comments foot in DF; supine or side lying PT-OP-T Assessment and Plan Start: 01/18/18 13:39 Freq: Status: Active Protocol: Document 02/07/18 12:51 ML (Rec: 02/07/18 12:58 ML [email or web address]) Physical Therapy Assessment Goals 3 Impairment dec mobility Short Term Goal (STG) Pt will be able to get up from a low chair without UE support. STG Duration 02/17/18 Ice Cream Vault Worker Goal (LTG) Pt will be able to walk 1 mile . LTG Duration 03/20/18 2 Impairment pain Short Term Goal (STG) Pt's pain will dec to no greater than 2/10 after short bouts of ambulation. STG Duration 02/17/18 [employer] Vault Worker Goal (LTG) Pt's pain when on his knees will dec to 3/10 with knee pads. LTG Duration 03/20/18 1 Impairment dec strength Short Term Goal (STG) Pt will be independent with HEP in order to inc strength. STG Duration 02/17/18 Ice Cream Vault Worker Goal (LTG) Pt will have LE strength of 4/ 5 bilaterally. LTG Duration 03/20/18 Assessment Summary Assessment Pt was able to demonstrate appropriate mechanics for sit to stand, although his inital stance was slightly widened. Pt was able to do the leg press with more wt today and less pain than in past. Pt did note Achilles pain, which was addressed with a calf raise in which he found it difficult to do with his knee extended and able to do so with knee bent, but caused pt pain. Pt has a rotational ER component of both tibia and femur when passively moved in DF with his knee extended, and has inc force medially through his ankle on his R. Pt's pain and mechanical abnormalities were addressed with soft tissue and joint mobilizations. Physical Therapy Plan Frequency and Duration Frequency of Treatment 2x/Week Duration of Treatment 2 months Plan of Care Start Date 01/18/19 Plan of Care End Date 03/20/18 Next Visit Focus/Plan Next Note Type Treatment Note Next Visit Plan calcaneus mobilizations and soft tissue mobilization; address tightness and rotational component; assess heel raise and leg press pain
--- NOTE | 2018-02-10 15:53 | PT.OTN ---
Current Diagnoses Presence of right artificial knee joint (02/10/18) Physical Therapy Treatment Note PT-OP-A Visit Information Start: 01/18/18 13:39 Freq: Status: Active Protocol: Document 02/10/18 10:06 ML (Rec: 02/10/18 10:26 ML [id number]) Out-Patient Physical Therapy Visit Information Visit Information Visit Type Treatment Note Visit Start Time 08:17 Visit Stop Time 09:02 Total Visit Minutes 45 Visit Number 7/10 Number of TELEGRAPH REPEATER TECHNICIAN Visits 0 PT-OP-B Current Condition Start: 01/18/18 13:39 Freq: Status: Active Protocol: Document 01/18/18 16:07 [facility] (Rec: 01/18/18 16:49 [facility] [id number]) Current Condition History of Current Condition Current Complaints B knee pain History of Current Condition Pt reports that his R knee feels very tight in the ant and lat surface distally. Pt reports L knee also gives him pain. Pain level is dependent on time of day and amount of walk, pain is between 2-4/10. Even as far as walking 100 m into a store, can create pain in knees and he has pain in B hips and it feels like he is wading through water. Reports 5 years ago he used to be able to walk 9 miles into a station, stay 9 hours then 9 miles back when he worked at the [employer]. Pt reports 6x/week he does about 40-50 min on recumbant bike without pain. Pt reports 2 laps (~.5 miles) in [employer] would make him very painful. Pt reports he wants to be able to walk as he used to be able to for exercise. Reports sit to stand is more difficult and from low chairs, he requires use of his UEs and is unable to get up/down from ground, which is difficulty for him d/ t wrist & shoulder pain. 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 Prior Treatments and Tests 1.5 yrs ago rehab for R TKA Treatment Goals Patient/Caregiver Goals Would like to be able to do a mile after PT and plans to cont PT program to improve that to infinate. PT-OP-C Subjective Start: 01/18/18 13:39 Freq: Status: Active Protocol: Document 02/10/18 10:06 ML (Rec: 02/10/18 10:26 ML [id number]) OP-PT Subjective Patient Comments Patient Comments Pt reports of no aggravation of joints or tissues after last visit. PT-OP-G Mobility & Gait Start: 01/18/18 13:39 Freq: Status: Active Protocol: Document 01/18/18 16:07 [facility] (Rec: 01/18/18 16:49 [facility] [id number]) OP Gait Assessment Comments Gait Comments Pt initiates gait with fwd & lat trunk lean. He has excessive lat leaning of trunk with gait with WB and primary use of LEs to propel himself without any trunk elevation or depression. PT-OP-J Posture/Palpation/Skin Start: 01/18/18 13:39 Freq: Status: Active Protocol: Document 01/18/18 16:07 [facility] (Rec: 01/18/18 17:48 [facility] [id number]) Posture Evaluation [facility] Postural Classification System [facility] Postural Classifications Anterior/Posterior PT-OP-K Range of Motion Start: 01/18/18 13:39 Freq: Status: Active Protocol: Document 01/18/18 16:07 [facility] (Rec: 01/18/18 16:49 [facility] [id number]) Hip Goniometric Range of Motion Hip Measured in Degrees Right Active Testing Position Supine Flexion w/Knee Flexed 95 Left Active Testing Position Supine Flexion w/Knee Flexed 113 Knee Goniometric Range of Motion Knee Measured in Degrees Right Patient Position Supine Flexion Active (degrees) 128 Extension Active (degrees) 3 Left Patient Position Supine Flexion Active (degrees) 129 Extension Active (degrees) 5 PT-OP-L Special Tests Start: 01/18/18 13:39 Freq: Status: Active Protocol: Document 01/18/18 16:07 [facility] (Rec: 01/18/18 16:49 [facility] [id number]) Special Tests Lumbar Spine Special Tests Straight Leg Raise Test Results neg B; slight tight HS with just under 90 deg L Comments about 75 deg hip flex w/ pain in post knee R & HS tightness PT-OP-M Strength Start: 01/18/18 13:39 Freq: Status: Active Protocol: Document 01/18/18 16:07 [facility] (Rec: 01/18/18 16:49 [facility] [id number]) Hip Strength Hip Manual Muscle Testing Right Flexion (L2) 4 Good Extension (S1) 4+ Good+ Abduction 3+ Fair+ External Rotation 5 Normal Internal Rotation 4+ Good+ Comments med knee pain w/ER; discomfort lat hip w/ abd with limited range Left Flexion (L2) 4 Good Extension (S1) 4 Good Abduction 3+ Fair+ External Rotation 5 Normal Internal Rotation 4+ Good+ Comments pain in LB with ext; very limited in abd ROM Knee Strength Knee Manual Muscle Testing Right Flexion (S2) 5 Normal Extension (L3) 5 Normal Left Flexion (S2) 5 Normal Extension (L3) 5 Normal Ankle/Foot Strength Ankle and Foot Manual Muscle Testing Right Dorsiflexion (L4) 5 Normal Plantarflexion (S1) 5 Normal Left Dorsiflexion (L4) 5 Normal Plantarflexion (S1) 5 Normal PT-OP-Q Treatments Start: 01/18/18 13:39 Freq: Status: Active Protocol: Document 02/10/18 10:06 ML (Rec: 02/10/18 10:26 ML [id number]) Cardio Equipment Recumbent Bicycle Duration (Minutes) 6 Resistance 18 Other cues for foot and knee position in comfortable range toward neutral Therapeutic Exercises Standing Exercises heel raise Standing Exercise Name unilat and bilat Side bilateral Equipment Used small ball and mirror Comments small ball (various sizes) between feet/ankles Manual Therapy Treatment Soft Tissue Mobilization fibular muscles Body Location proximal; L Mobilization Type Myofascial Release Rolling Sustained Pressure Intensity/Depth Superficial Body Position Sidelying Comments active DF/PF lat gastroc Body Location proximal; L Mobilization Type Myofascial Release Rolling Sustained Pressure Intensity/Depth Moderate Body Position Sidelying Comments active DF/PF Joint Mobilizations fibula Joint Proximal; L Direction AP and PA Body Position Sidelying Comments active knee ext for PA and DF/ PF for AP PT-OP-T Assessment and Plan Start: 01/18/18 13:39 Freq: Status: Active Protocol: Document 02/10/18 10:06 ML (Rec: 02/10/18 10:26 ML [id number]) Physical Therapy Assessment Goals 3 Impairment dec mobility Short Term Goal (STG) Pt will be able to get up from a low chair without UE support. STG Duration 02/17/18 Fdc Goal (LTG) Pt will be able to walk 1 mile . LTG Duration 03/20/18 2 Impairment pain Short Term Goal (STG) Pt's pain will dec to no greater than 2/10 after short bouts of ambulation. STG Duration 02/17/18 Fdc Goal (LTG) Pt's pain when on his knees will dec to 3/10 with knee pads. LTG Duration 03/20/18 1 Impairment dec strength Short Term Goal (STG) Pt will be independent with HEP in order to inc strength. STG Duration 02/17/18 Fdc Goal (LTG) Pt will have LE strength of 4/ 5 bilaterally. LTG Duration 03/20/18 Assessment Summary Assessment Pt was able to achieve bilat heel raise with knee extended, but had much difficulty through unilat raise. Pt is unable to achieve the raise without a lateral motion through his LEs, especially on L. Pt was cued and assisted with ball between ankles/feet and manual adjustments but was still unable. This issue was addressed manually. Pt did not have much motion through his fibula, lat gastroc, and fibularis muscles, which improved after treatment. Pt's exercise on recumbent bike outside of PT was addressed as well with cues for more nuetral foot and knee position to improve his mechanics and alignment. Physical Therapy Plan Frequency and Duration Frequency of Treatment 2x/Week Duration of Treatment 2 months Plan of Care Start Date 01/18/19 Plan of Care End Date 03/20/18 Next Visit Focus/Plan Next Note Type Treatment Note Next Visit Plan calcaneus mobilizations and soft tissue mobilization; address tightness and rotational component; assess heel raise and leg press pain
--- NOTE | 2018-02-20 09:01 | PT.OTN ---
Current Diagnoses Presence of right artificial knee joint (02/20/18) Physical Therapy Treatment Note PT-OP-A Visit Information Start: 01/18/18 13:39 Freq: Status: Active Protocol: Document 02/20/18 08:55 [facility] (Rec: 02/20/18 09:00 [facility] [id number]) Out-Patient Physical Therapy Visit Information Visit Information Visit Type Treatment Note Visit Start Time 08:13 Visit Stop Time 08:53 Total Visit Minutes 40 Visit Number 8/10 Number of GEOGRAPHIC ANALYST Visits 0 PT-OP-B Current Condition Start: 01/18/18 13:39 Freq: Status: Active Protocol: Document 01/18/18 16:07 [facility] (Rec: 01/18/18 16:49 [facility] [id number]) Current Condition History of Current Condition Current Complaints B knee pain History of Current Condition Pt reports that his R knee feels very tight in the ant and lat surface distally. Pt reports L knee also gives him pain. Pain level is dependent on time of day and amount of walk, pain is between 2-4/10. Even as far as walking 100 m into a store, can create pain in knees and he has pain in B hips and it feels like he is wading through water. Reports 5 years ago he used to be able to walk 9 miles into a station, stay 9 hours then 9 miles back when he worked at the [employer]. Pt reports 6x/week he does about 40-50 min on recumbant bike without pain. Pt reports 2 laps (~.5 miles) in [employer] would make him very painful. Pt reports he wants to be able to walk as he used to be able to for exercise. Reports sit to stand is more difficult and from low chairs, he requires use of his UEs and is unable to get up/down from ground, which is difficulty for him d/ t wrist & shoulder pain. 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 Prior Treatments and Tests 1.5 yrs ago rehab for R TKA Treatment Goals Patient/Caregiver Goals Would like to be able to do a mile after PT and plans to cont PT program to improve that to infinate. PT-OP-C Subjective Start: 01/18/18 13:39 Freq: Status: Active Protocol: Document 02/20/18 08:55 [facility] (Rec: 02/20/18 09:00 [facility] [id number]) OP-PT Subjective Patient Comments Patient Comments Pt reports B knees and back have been hurting. PT-OP-G Mobility & Gait Start: 01/18/18 13:39 Freq: Status: Active Protocol: Document 01/18/18 16:07 [facility] (Rec: 01/18/18 16:49 [facility] [id number]) OP Gait Assessment Comments Gait Comments Pt initiates gait with fwd & lat trunk lean. He has excessive lat leaning of trunk with gait with WB and primary use of LEs to propel himself without any trunk elevation or depression. PT-OP-J Posture/Palpation/Skin Start: 01/18/18 13:39 Freq: Status: Active Protocol: Document 01/18/18 16:07 [facility] (Rec: 01/18/18 17:48 [facility] [id number]) Posture Evaluation [facility] Postural Classification System [facility] Postural Classifications Anterior/Posterior PT-OP-K Range of Motion Start: 01/18/18 13:39 Freq: Status: Active Protocol: Document 01/18/18 16:07 [facility] (Rec: 01/18/18 16:49 [facility] [id number]) Hip Goniometric Range of Motion Hip Measured in Degrees Right Active Testing Position Supine Flexion w/Knee Flexed 95 Left Active Testing Position Supine Flexion w/Knee Flexed 113 Knee Goniometric Range of Motion Knee Measured in Degrees Right Patient Position Supine Flexion Active (degrees) 128 Extension Active (degrees) 3 Left Patient Position Supine Flexion Active (degrees) 129 Extension Active (degrees) 5 PT-OP-L Special Tests Start: 01/18/18 13:39 Freq: Status: Active Protocol: Document 01/18/18 16:07 [facility] (Rec: 01/18/18 16:49 [facility] [id number]) Special Tests Lumbar Spine Special Tests Straight Leg Raise Test Results neg B; slight tight HS with just under 90 deg L Comments about 75 deg hip flex w/ pain in post knee R & HS tightness PT-OP-M Strength Start: 01/18/18 13:39 Freq: Status: Active Protocol: Document 01/18/18 16:07 [facility] (Rec: 01/18/18 16:49 [facility] [id number]) Hip Strength Hip Manual Muscle Testing Right Flexion (L2) 4 Good Extension (S1) 4+ Good+ Abduction 3+ Fair+ External Rotation 5 Normal Internal Rotation 4+ Good+ Comments med knee pain w/ER; discomfort lat hip w/ abd with limited range Left Flexion (L2) 4 Good Extension (S1) 4 Good Abduction 3+ Fair+ External Rotation 5 Normal Internal Rotation 4+ Good+ Comments pain in LB with ext; very limited in abd ROM Knee Strength Knee Manual Muscle Testing Right Flexion (S2) 5 Normal Extension (L3) 5 Normal Left Flexion (S2) 5 Normal Extension (L3) 5 Normal Ankle/Foot Strength Ankle and Foot Manual Muscle Testing Right Dorsiflexion (L4) 5 Normal Plantarflexion (S1) 5 Normal Left Dorsiflexion (L4) 5 Normal Plantarflexion (S1) 5 Normal PT-OP-Q Treatments Start: 01/18/18 13:39 Freq: Status: Active Protocol: Document 02/20/18 08:55 [facility] (Rec: 02/20/18 09:00 [facility] [email or web address]) Therapeutic Exercises Standing Exercises quad/hip flexor stretch Standing Exercise Name quad stretch bent knee over plinth Comments 30 sec Manual Therapy Treatment Soft Tissue Mobilization lumbar scar Body Location scar lumbar Mobilization Type Myofascial Release Intensity/Depth Superficial Body Position Sidelying Comments w/plunger & IR of R hip scar tissue Body Location R knee Mobilization Type Rolling Intensity/Depth Moderate Comments med w/APs IT band Body Location R Mobilization Type Rolling Joint Mobilizations innominate Joint innominate Direction IR FM B hip Joint hip Direction IR FM R PT-OP-T Assessment and Plan Start: 01/18/18 13:39 Freq: Status: Active Protocol: Document 02/20/18 08:55 [facility] (Rec: 02/20/18 09:00 [facility] [id number]) Physical Therapy Assessment Goals 3 Impairment dec mobility Short Term Goal (STG) Pt will be able to get up from a low chair without UE support. STG Duration 02/17/18 Wash Driller Helper Goal (LTG) Pt will be able to walk 1 mile . LTG Duration 03/20/18 2 Impairment pain Short Term Goal (STG) Pt's pain will dec to no greater than 2/10 after short bouts of ambulation. STG Duration 02/17/18 Snf Goal (LTG) Pt's pain when on his knees will dec to 3/10 with knee pads. LTG Duration 03/20/18 1 Impairment dec strength Short Term Goal (STG) Pt will be independent with HEP in order to inc strength. STG Duration 02/17/18 Snf Goal (LTG) Pt will have LE strength of 4/ 5 bilaterally. LTG Duration 03/20/18 Assessment Summary Assessment Pt able to improve IR ROM with mobilizations of hip & innominate. Pt improved knee ext ROM to lacking only about 3 degrees from lackinga bout 8 degrees with mobilizations of tibfem joint. Physical Therapy Plan Frequency and Duration Frequency of Treatment 2x/Week Duration of Treatment 2 months Plan of Care Start Date 01/18/19 Plan of Care End Date 03/20/18 Next Visit Focus/Plan Next Note Type Treatment Note Next Visit Plan Foot mobs & hip mobilizations, build stretching regimine
--- NOTE | 2018-02-23 09:14 | PT.OTN ---
Current Diagnoses Presence of right artificial knee joint (02/23/18) Physical Therapy Treatment Note PT-OP-A Visit Information Start: 01/18/18 13:39 Freq: Status: Active Protocol: Document 02/23/18 09:08 [facility] (Rec: 02/23/18 09:14 [facility] [id number]) Out-Patient Physical Therapy Visit Information Visit Information Visit Type Treatment Note Visit Start Time 08:18 Visit Stop Time 09:00 Total Visit Minutes 42 Visit Number 9/10 Number of SALES PROMOTION MANAGER Visits 0 PT-OP-B Current Condition Start: 01/18/18 13:39 Freq: Status: Active Protocol: Document 01/18/18 16:07 [facility] (Rec: 01/18/18 16:49 [facility] [id number]) Current Condition History of Current Condition Current Complaints B knee pain History of Current Condition Pt reports that his R knee feels very tight in the ant and lat surface distally. Pt reports L knee also gives him pain. Pain level is dependent on time of day and amount of walk, pain is between 2-4/10. Even as far as walking 100 m into a store, can create pain in knees and he has pain in B hips and it feels like he is wading through water. Reports 5 years ago he used to be able to walk 9 miles into a station, stay 9 hours then 9 miles back when he worked at the [employer]. Pt reports 6x/week he does about 40-50 min on recumbant bike without pain. Pt reports 2 laps (~.5 miles) in [employer] would make him very painful. Pt reports he wants to be able to walk as he used to be able to for exercise. Reports sit to stand is more difficult and from low chairs, he requires use of his UEs and is unable to get up/down from ground, which is difficulty for him d/ t wrist & shoulder pain. 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 Prior Treatments and Tests 1.5 yrs ago rehab for R TKA Treatment Goals Patient/Caregiver Goals Would like to be able to do a mile after PT and plans to cont PT program to improve that to infinate. PT-OP-C Subjective Start: 01/18/18 13:39 Freq: Status: Active Protocol: Document 02/23/18 09:08 [facility] (Rec: 02/23/18 09:14 [facility] [id number]) OP-PT Subjective Patient Comments Patient Comments Pt reports compliance with standing at wall exercise PT-OP-G Mobility & Gait Start: 01/18/18 13:39 Freq: Status: Active Protocol: Document 01/18/18 16:07 [facility] (Rec: 01/18/18 16:49 [facility] [id number]) OP Gait Assessment Comments Gait Comments Pt initiates gait with fwd & lat trunk lean. He has excessive lat leaning of trunk with gait with WB and primary use of LEs to propel himself without any trunk elevation or depression. PT-OP-J Posture/Palpation/Skin Start: 01/18/18 13:39 Freq: Status: Active Protocol: Document 01/18/18 16:07 [facility] (Rec: 01/18/18 17:48 [facility] [id number]) Posture Evaluation [facility] Postural Classification System [facility] Postural Classifications Anterior/Posterior PT-OP-K Range of Motion Start: 01/18/18 13:39 Freq: Status: Active Protocol: Document 01/18/18 16:07 [facility] (Rec: 01/18/18 16:49 [facility] [id number]) Hip Goniometric Range of Motion Hip Measured in Degrees Right Active Testing Position Supine Flexion w/Knee Flexed 95 Left Active Testing Position Supine Flexion w/Knee Flexed 113 Knee Goniometric Range of Motion Knee Measured in Degrees Right Patient Position Supine Flexion Active (degrees) 128 Extension Active (degrees) 3 Left Patient Position Supine Flexion Active (degrees) 129 Extension Active (degrees) 5 PT-OP-L Special Tests Start: 01/18/18 13:39 Freq: Status: Active Protocol: Document 01/18/18 16:07 [facility] (Rec: 01/18/18 16:49 [facility] [id number]) Special Tests Lumbar Spine Special Tests Straight Leg Raise Test Results neg B; slight tight HS with just under 90 deg L Comments about 75 deg hip flex w/ pain in post knee R & HS tightness PT-OP-M Strength Start: 01/18/18 13:39 Freq: Status: Active Protocol: Document 01/18/18 16:07 [facility] (Rec: 01/18/18 16:49 [facility] [id number]) Hip Strength Hip Manual Muscle Testing Right Flexion (L2) 4 Good Extension (S1) 4+ Good+ Abduction 3+ Fair+ External Rotation 5 Normal Internal Rotation 4+ Good+ Comments med knee pain w/ER; discomfort lat hip w/ abd with limited range Left Flexion (L2) 4 Good Extension (S1) 4 Good Abduction 3+ Fair+ External Rotation 5 Normal Internal Rotation 4+ Good+ Comments pain in LB with ext; very limited in abd ROM Knee Strength Knee Manual Muscle Testing Right Flexion (S2) 5 Normal Extension (L3) 5 Normal Left Flexion (S2) 5 Normal Extension (L3) 5 Normal Ankle/Foot Strength Ankle and Foot Manual Muscle Testing Right Dorsiflexion (L4) 5 Normal Plantarflexion (S1) 5 Normal Left Dorsiflexion (L4) 5 Normal Plantarflexion (S1) 5 Normal PT-OP-Q Treatments Start: 01/18/18 13:39 Freq: Status: Active Protocol: Document 02/23/18 09:08 [facility] (Rec: 02/23/18 09:14 [facility] [id number]) Therapeutic Exercises Supine Exercises piriformist Supine Exercise Name piriformis stretch Reps/Minutes 30 sec Standing Exercises HS Standing Exercise Name HS stretch Reps/Minutes 30 sec calf stretch Standing Exercise Name gastroc & soleus stretch Reps/Minutes 30 sec holds quad/hip flexor stretch Standing Exercise Name quad stretch bent knee over plinth Comments 30 sec Manual Therapy Treatment Soft Tissue Mobilization scar tissue Body Location R knee Mobilization Type Myofascial Release Rolling Intensity/Depth Moderate Comments med w/APs & plunger IT band Body Location R Mobilization Type Rolling Joint Mobilizations Tibfemoral Joint TF Direction AP on tibia & femur FM fibula Joint Proximal; R Direction PA Body Position Supine Comments active knee ext for PA and DF/ PF for AP PT-OP-T Assessment and Plan Start: 01/18/18 13:39 Freq: Status: Active Protocol: Document 02/23/18 09:08 [facility] (Rec: 02/23/18 09:14 [facility] [id number]) Physical Therapy Assessment Goals 3 Impairment dec mobility Short Term Goal (STG) Pt will be able to get up from a low chair without UE support. STG Duration 02/17/18 Residential Goal (LTG) Pt will be able to walk 1 mile . LTG Duration 03/20/18 2 Impairment pain Short Term Goal (STG) Pt's pain will dec to no greater than 2/10 after short bouts of ambulation. STG Duration 02/17/18 Residential Goal (LTG) Pt's pain when on his knees will dec to 3/10 with knee pads. LTG Duration 03/20/18 1 Impairment dec strength Short Term Goal (STG) Pt will be independent with HEP in order to inc strength. STG Duration 02/17/18 Proof Passer Goal (LTG) Pt will have LE strength of 4/ 5 bilaterally. LTG Duration 03/20/18 Assessment Summary Assessment Pt able to do stretching exercises without pain and had improved knee ext with mobilizations. Pt cont to have dec glute control with terminal ext. Physical Therapy Plan Frequency and Duration Frequency of Treatment 2x/Week Duration of Treatment 2 months Plan of Care Start Date 01/18/19 Plan of Care End Date 03/20/18 Next Visit Focus/Plan Next Note Type Progress Note Next Visit Plan foot & hip mobs, PNF & re- assess strength; start edu of walking
--- NOTE | 2018-02-28 10:34 | PT.OTN ---
Current Diagnoses Presence of right artificial knee joint (02/28/18) Physical Therapy Treatment Note PT-OP-A Visit Information Start: 01/18/18 13:39 Freq: Status: Active Protocol: Document 02/28/18 09:03 [facility] (Rec: 02/28/18 10:34 [facility] [id number]) Out-Patient Physical Therapy Visit Information Visit Information Visit Type Treatment Note Visit Start Time 08:15 Visit Stop Time 08:55 Total Visit Minutes 40 Visit Number 1/ Number of SENIOR RELATIONSHIP MANAGER Visits 0 PT-OP-B Current Condition Start: 01/18/18 13:39 Freq: Status: Active Protocol: Document 01/18/18 16:07 [facility] (Rec: 01/18/18 16:49 [facility] [id number]) Current Condition History of Current Condition Current Complaints B knee pain History of Current Condition Pt reports that his R knee feels very tight in the ant and lat surface distally. Pt reports L knee also gives him pain. Pain level is dependent on time of day and amount of walk, pain is between 2-4/10. Even as far as walking 100 m into a store, can create pain in knees and he has pain in B hips and it feels like he is wading through water. Reports 5 years ago he used to be able to walk 9 miles into a station, stay 9 hours then 9 miles back when he worked at the [employer]. Pt reports 6x/week he does about 40-50 min on recumbant bike without pain. Pt reports 2 laps (~.5 miles) in [employer] would make him very painful. Pt reports he wants to be able to walk as he used to be able to for exercise. Reports sit to stand is more difficult and from low chairs, he requires use of his UEs and is unable to get up/down from ground, which is difficulty for him d/ t wrist & shoulder pain. 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 Prior Treatments and Tests 1.5 yrs ago rehab for R TKA Treatment Goals Patient/Caregiver Goals Would like to be able to do a mile after PT and plans to cont PT program to improve that to infinate. PT-OP-C Subjective Start: 01/18/18 13:39 Freq: Status: Active Protocol: Document 02/28/18 09:03 [facility] (Rec: 02/28/18 10:34 [facility] [id number]) OP-PT Subjective Patient Comments Patient Comments Pt reports just some lat pressure in knees. PT-OP-G Mobility & Gait Start: 01/18/18 13:39 Freq: Status: Active Protocol: Document 01/18/18 16:07 [facility] (Rec: 01/18/18 16:49 [facility] [id number]) OP Gait Assessment Comments Gait Comments Pt initiates gait with fwd & lat trunk lean. He has excessive lat leaning of trunk with gait with WB and primary use of LEs to propel himself without any trunk elevation or depression. PT-OP-J Posture/Palpation/Skin Start: 01/18/18 13:39 Freq: Status: Active Protocol: Document 01/18/18 16:07 [facility] (Rec: 01/18/18 17:48 [facility] [id number]) Posture Evaluation [facility] Postural Classification System [facility] Postural Classifications Anterior/Posterior PT-OP-K Range of Motion Start: 01/18/18 13:39 Freq: Status: Active Protocol: Document 01/18/18 16:07 [facility] (Rec: 01/18/18 16:49 [facility] [id number]) Hip Goniometric Range of Motion Hip Measured in Degrees Right Active Testing Position Supine Flexion w/Knee Flexed 95 Left Active Testing Position Supine Flexion w/Knee Flexed 113 Knee Goniometric Range of Motion Knee Measured in Degrees Right Patient Position Supine Flexion Active (degrees) 128 Extension Active (degrees) 3 Left Patient Position Supine Flexion Active (degrees) 129 Extension Active (degrees) 5 PT-OP-L Special Tests Start: 01/18/18 13:39 Freq: Status: Active Protocol: Document 01/18/18 16:07 [facility] (Rec: 01/18/18 16:49 [facility] [id number]) Special Tests Lumbar Spine Special Tests Straight Leg Raise Test Results neg B; slight tight HS with just under 90 deg L Comments about 75 deg hip flex w/ pain in post knee R & HS tightness PT-OP-M Strength Start: 01/18/18 13:39 Freq: Status: Active Protocol: Document 01/18/18 16:07 [facility] (Rec: 01/18/18 16:49 [facility] [id number]) Hip Strength Hip Manual Muscle Testing Right Flexion (L2) 4 Good Extension (S1) 4+ Good+ Abduction 3+ Fair+ External Rotation 5 Normal Internal Rotation 4+ Good+ Comments med knee pain w/ER; discomfort lat hip w/ abd with limited range Left Flexion (L2) 4 Good Extension (S1) 4 Good Abduction 3+ Fair+ External Rotation 5 Normal Internal Rotation 4+ Good+ Comments pain in LB with ext; very limited in abd ROM Knee Strength Knee Manual Muscle Testing Right Flexion (S2) 5 Normal Extension (L3) 5 Normal Left Flexion (S2) 5 Normal Extension (L3) 5 Normal Ankle/Foot Strength Ankle and Foot Manual Muscle Testing Right Dorsiflexion (L4) 5 Normal Plantarflexion (S1) 5 Normal Left Dorsiflexion (L4) 5 Normal Plantarflexion (S1) 5 Normal PT-OP-Q Treatments Start: 01/18/18 13:39 Freq: Status: Active Protocol: Document 02/28/18 09:03 [facility] (Rec: 02/28/18 10:34 [facility] [id number]) Therapeutic Exercises Standing Exercises side stepping Standing Exercise Name side step Reps/Minutes 2x20ft marching in mirro Standing Exercise Name marching in mirror Comments focus on lat movement prevention SLS in mirror Standing Exercise Name SLS in mirror Comments focus on balance Gait Training Gait Activity walking Description mirror focus on no lat movement Comments progressed to focus on push off Neuro Re-Education Treatment Other Activities Ant elev/post depress Details post depression COI PT-OP-T Assessment and Plan Start: 01/18/18 13:39 Freq: Status: Active Protocol: Document 02/28/18 09:03 [facility] (Rec: 02/28/18 10:34 [facility] [id number]) Physical Therapy Assessment Goals 3 Impairment dec mobility Short Term Goal (STG) Pt will be able to get up from a low chair without UE support. STG Duration 02/17/18-improving strength Cash Teller Goal (LTG) Pt will be able to walk 1 mile . LTG Duration 03/20/18 2 Impairment pain Short Term Goal (STG) Pt's pain will dec to no greater than 2/10 after short bouts of ambulation. STG Duration 02/17/18-improving [facility] Goal (LTG) Pt's pain when on his knees will dec to 3/10 with knee pads. LTG Duration 03/20/18 1 Impairment dec strength Short Term Goal (STG) Pt will be independent with HEP in order to inc strength. STG Duration 02/17/18-achieved progressing HEP Cash Teller Goal (LTG) Pt will have LE strength of 4/ 5 bilaterally. LTG Duration 03/20/18 Assessment Summary Assessment Pt able to improve gait mechanics with edu. He has difficulty with abd activation in standing and attempts a trendelenburg or compenstated trendelenburg position to compensate. Improves with cueing and mirror use and UE support. Physical Therapy Plan Frequency and Duration Frequency of Treatment 2x/Week Duration of Treatment 2 months Plan of Care Start Date 01/18/19 Plan of Care End Date 03/20/18 Next Visit Focus/Plan Next Note Type Treatment Note Next Visit Plan Cont to progress gait & balance
--- NOTE | 2018-03-03 08:59 | PT.OTN ---
Current Diagnoses Presence of right artificial knee joint (03/03/18) Physical Therapy Treatment Note PT-OP-A Visit Information Start: 01/18/18 13:39 Freq: Status: Active Protocol: Document 03/03/18 07:46 [facility] (Rec: 03/03/18 08:59 [facility] [id number]) Out-Patient Physical Therapy Visit Information Visit Information Visit Type Treatment Note Visit Start Time 08:00 Visit Stop Time 08:40 Total Visit Minutes 40 Visit Number 2/10 Number of DOUBLE SURFACE OPERATOR Visits 0 PT-OP-B Current Condition Start: 01/18/18 13:39 Freq: Status: Active Protocol: Document 01/18/18 16:07 [facility] (Rec: 01/18/18 16:49 [facility] [id number]) Current Condition History of Current Condition Current Complaints B knee pain History of Current Condition Pt reports that his R knee feels very tight in the ant and lat surface distally. Pt reports L knee also gives him pain. Pain level is dependent on time of day and amount of walk, pain is between 2-4/10. Even as far as walking 100 m into a store, can create pain in knees and he has pain in B hips and it feels like he is wading through water. Reports 5 years ago he used to be able to walk 9 miles into a station, stay 9 hours then 9 miles back when he worked at the [employer]. Pt reports 6x/week he does about 40-50 min on recumbant bike without pain. Pt reports 2 laps (~.5 miles) in [employer] would make him very painful. Pt reports he wants to be able to walk as he used to be able to for exercise. Reports sit to stand is more difficult and from low chairs, he requires use of his UEs and is unable to get up/down from ground, which is difficulty for him d/ t wrist & shoulder pain. 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 Prior Treatments and Tests 1.5 yrs ago rehab for R TKA Treatment Goals Patient/Caregiver Goals Would like to be able to do a mile after PT and plans to cont PT program to improve that to infinate. PT-OP-C Subjective Start: 01/18/18 13:39 Freq: Status: Active Protocol: Document 03/03/18 07:46 [facility] (Rec: 03/03/18 08:59 [facility] [id number]) OP-PT Subjective Patient Comments Patient Comments Pt reports just some stiffness in the knee PT-OP-G Mobility & Gait Start: 01/18/18 13:39 Freq: Status: Active Protocol: Document 01/18/18 16:07 [facility] (Rec: 01/18/18 16:49 [facility] [id number]) OP Gait Assessment Comments Gait Comments Pt initiates gait with fwd & lat trunk lean. He has excessive lat leaning of trunk with gait with WB and primary use of LEs to propel himself without any trunk elevation or depression. PT-OP-J Posture/Palpation/Skin Start: 01/18/18 13:39 Freq: Status: Active Protocol: Document 01/18/18 16:07 [facility] (Rec: 01/18/18 17:48 [facility] [id number]) Posture Evaluation [facility] Postural Classification System [facility] Postural Classifications Anterior/Posterior PT-OP-K Range of Motion Start: 01/18/18 13:39 Freq: Status: Active Protocol: Document 01/18/18 16:07 [facility] (Rec: 01/18/18 16:49 [facility] [id number]) Hip Goniometric Range of Motion Hip Measured in Degrees Right Active Testing Position Supine Flexion w/Knee Flexed 95 Left Active Testing Position Supine Flexion w/Knee Flexed 113 Knee Goniometric Range of Motion Knee Measured in Degrees Right Patient Position Supine Flexion Active (degrees) 128 Extension Active (degrees) 3 Left Patient Position Supine Flexion Active (degrees) 129 Extension Active (degrees) 5 PT-OP-L Special Tests Start: 01/18/18 13:39 Freq: Status: Active Protocol: Document 01/18/18 16:07 [facility] (Rec: 01/18/18 16:49 [facility] [id number]) Special Tests Lumbar Spine Special Tests Straight Leg Raise Test Results neg B; slight tight HS with just under 90 deg L Comments about 75 deg hip flex w/ pain in post knee R & HS tightness PT-OP-M Strength Start: 01/18/18 13:39 Freq: Status: Active Protocol: Document 01/18/18 16:07 [facility] (Rec: 01/18/18 16:49 [facility] [id number]) Hip Strength Hip Manual Muscle Testing Right Flexion (L2) 4 Good Extension (S1) 4+ Good+ Abduction 3+ Fair+ External Rotation 5 Normal Internal Rotation 4+ Good+ Comments med knee pain w/ER; discomfort lat hip w/ abd with limited range Left Flexion (L2) 4 Good Extension (S1) 4 Good Abduction 3+ Fair+ External Rotation 5 Normal Internal Rotation 4+ Good+ Comments pain in LB with ext; very limited in abd ROM Knee Strength Knee Manual Muscle Testing Right Flexion (S2) 5 Normal Extension (L3) 5 Normal Left Flexion (S2) 5 Normal Extension (L3) 5 Normal Ankle/Foot Strength Ankle and Foot Manual Muscle Testing Right Dorsiflexion (L4) 5 Normal Plantarflexion (S1) 5 Normal Left Dorsiflexion (L4) 5 Normal Plantarflexion (S1) 5 Normal PT-OP-Q Treatments Start: 01/18/18 13:39 Freq: Status: Active Protocol: Document 03/03/18 07:46 [facility] (Rec: 03/03/18 08:59 [facility] [id number]) Therapeutic Exercises Standing Exercises TKE Standing Exercise Name TKE Side bilateral Equipment Used L2 Reps/Minutes 30 Manual Therapy Treatment Soft Tissue Mobilization IT band Body Location R Mobilization Type Rolling Comments Rolling, plunger, along post border Joint Mobilizations Tibfemoral Joint TF Direction AP on tibia & femur FM Neuro Re-Education Treatment Balance Activities SLS Details SLS in mirror Tandem Details tandem walking & stance PT-OP-T Assessment and Plan Start: 01/18/18 13:39 Freq: Status: Active Protocol: Document 03/03/18 07:46 [facility] (Rec: 03/03/18 08:59 [facility] [id number]) Physical Therapy Assessment Goals 3 Impairment dec mobility Short Term Goal (STG) Pt will be able to get up from a low chair without UE support. STG Duration 02/17/18-improving strength Mcfp Goal (LTG) Pt will be able to walk 1 mile . LTG Duration 03/20/18 2 Impairment pain Short Term Goal (STG) Pt's pain will dec to no greater than 2/10 after short bouts of ambulation. STG Duration 02/17/18-improving Call Or Contact Centre Manager Goal (LTG) Pt's pain when on his knees will dec to 3/10 with knee pads. LTG Duration 03/20/18 1 Impairment dec strength Short Term Goal (STG) Pt will be independent with HEP in order to inc strength. STG Duration 02/17/18-achieved progressing HEP Call Or Contact Centre Manager Goal (LTG) Pt will have LE strength of 4/ 5 bilaterally. LTG Duration 03/20/18 Assessment Summary Assessment Pt able to do balance exercises and TKE without pain . Able to achieve about 5 deg knee ext with mobs. Physical Therapy Plan Frequency and Duration Frequency of Treatment 2x/Week Duration of Treatment 2 months Plan of Care Start Date 01/18/19 Plan of Care End Date 03/20/18 Next Visit Focus/Plan Next Note Type Treatment Note Next Visit Plan Balance board, re-assess ability to do heel raises
--- NOTE | 2018-03-08 09:02 | PT.OTN ---
Current Diagnoses Presence of right artificial knee joint (03/08/18) Physical Therapy Treatment Note PT-OP-A Visit Information Start: 01/18/18 13:39 Freq: Status: Active Protocol: Document 03/08/18 08:13 [facility] (Rec: 03/08/18 09:02 [facility] [id number]) Out-Patient Physical Therapy Visit Information Visit Information Visit Type Treatment Note Visit Start Time 08:15 Visit Stop Time 08:55 Total Visit Minutes 40 Visit Number 3/10 Number of BOAT AND PLANT UTILITY SUPERVISOR Visits 0 PT-OP-B Current Condition Start: 01/18/18 13:39 Freq: Status: Active Protocol: Document 01/18/18 16:07 [facility] (Rec: 01/18/18 16:49 [facility] [id number]) Current Condition History of Current Condition Current Complaints B knee pain History of Current Condition Pt reports that his R knee feels very tight in the ant and lat surface distally. Pt reports L knee also gives him pain. Pain level is dependent on time of day and amount of walk, pain is between 2-4/10. Even as far as walking 100 m into a store, can create pain in knees and he has pain in B hips and it feels like he is wading through water. Reports 5 years ago he used to be able to walk 9 miles into a station, stay 9 hours then 9 miles back when he worked at the [employer]. Pt reports 6x/week he does about 40-50 min on recumbant bike without pain. Pt reports 2 laps (~.5 miles) in [employer] would make him very painful. Pt reports he wants to be able to walk as he used to be able to for exercise. Reports sit to stand is more difficult and from low chairs, he requires use of his UEs and is unable to get up/down from ground, which is difficulty for him d/ t wrist & shoulder pain. 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 Prior Treatments and Tests 1.5 yrs ago rehab for R TKA Treatment Goals Patient/Caregiver Goals Would like to be able to do a mile after PT and plans to cont PT program to improve that to infinate. PT-OP-C Subjective Start: 01/18/18 13:39 Freq: Status: Active Protocol: Document 03/08/18 08:13 [facility] (Rec: 03/08/18 09:02 [facility] [id number]) OP-PT Subjective Patient Comments Patient Comments Notes he has not tried treadmill yet. Patient Reported Progress Improving PT-OP-G Mobility & Gait Start: 01/18/18 13:39 Freq: Status: Active Protocol: Document 01/18/18 16:07 [facility] (Rec: 01/18/18 16:49 [facility] [id number]) OP Gait Assessment Comments Gait Comments Pt initiates gait with fwd & lat trunk lean. He has excessive lat leaning of trunk with gait with WB and primary use of LEs to propel himself without any trunk elevation or depression. PT-OP-J Posture/Palpation/Skin Start: 01/18/18 13:39 Freq: Status: Active Protocol: Document 01/18/18 16:07 [facility] (Rec: 01/18/18 17:48 [facility] [id number]) Posture Evaluation [facility] Postural Classification System [facility] Postural Classifications Anterior/Posterior PT-OP-K Range of Motion Start: 01/18/18 13:39 Freq: Status: Active Protocol: Document 01/18/18 16:07 [facility] (Rec: 01/18/18 16:49 [facility] [id number]) Hip Goniometric Range of Motion Hip Measured in Degrees Right Active Testing Position Supine Flexion w/Knee Flexed 95 Left Active Testing Position Supine Flexion w/Knee Flexed 113 Knee Goniometric Range of Motion Knee Measured in Degrees Right Patient Position Supine Flexion Active (degrees) 128 Extension Active (degrees) 3 Left Patient Position Supine Flexion Active (degrees) 129 Extension Active (degrees) 5 PT-OP-L Special Tests Start: 01/18/18 13:39 Freq: Status: Active Protocol: Document 01/18/18 16:07 [facility] (Rec: 01/18/18 16:49 [facility] [id number]) Special Tests Lumbar Spine Special Tests Straight Leg Raise Test Results neg B; slight tight HS with just under 90 deg L Comments about 75 deg hip flex w/ pain in post knee R & HS tightness PT-OP-M Strength Start: 01/18/18 13:39 Freq: Status: Active Protocol: Document 01/18/18 16:07 [facility] (Rec: 01/18/18 16:49 [facility] [id number]) Hip Strength Hip Manual Muscle Testing Right Flexion (L2) 4 Good Extension (S1) 4+ Good+ Abduction 3+ Fair+ External Rotation 5 Normal Internal Rotation 4+ Good+ Comments med knee pain w/ER; discomfort lat hip w/ abd with limited range Left Flexion (L2) 4 Good Extension (S1) 4 Good Abduction 3+ Fair+ External Rotation 5 Normal Internal Rotation 4+ Good+ Comments pain in LB with ext; very limited in abd ROM Knee Strength Knee Manual Muscle Testing Right Flexion (S2) 5 Normal Extension (L3) 5 Normal Left Flexion (S2) 5 Normal Extension (L3) 5 Normal Ankle/Foot Strength Ankle and Foot Manual Muscle Testing Right Dorsiflexion (L4) 5 Normal Plantarflexion (S1) 5 Normal Left Dorsiflexion (L4) 5 Normal Plantarflexion (S1) 5 Normal PT-OP-Q Treatments Start: 01/18/18 13:39 Freq: Status: Active Protocol: Document 03/08/18 08:13 [facility] (Rec: 03/08/18 09:02 [facility] [id number]) Gym Equipment Shuttle Recovery unilat heel raise Resistance 37 Shuttle Recovery Platform Stable Reps/Time 15 Shuttle Balance red clips Details WBOS Comments fwd & side Therapeutic Exercises Standing Exercises heel raise Standing Exercise Name double then single leg B Side bilateral Reps/Minutes 10x2 Manual Therapy Treatment Soft Tissue Mobilization thigh Body Location circumfrential STM R thigh Mobilization Type Myofascial Release Intensity/Depth Superficial Achilles Body Location achilles R lat & med Mobilization Type Rolling Neuro Re-Education Treatment Balance Activities bosu Details bosu balance PT-OP-T Assessment and Plan Start: 01/18/18 13:39 Freq: Status: Active Protocol: Document 03/08/18 08:13 [facility] (Rec: 03/08/18 09:02 [facility] [id number]) Physical Therapy Assessment Goals 3 Impairment dec mobility Short Term Goal (STG) Pt will be able to get up from a low chair without UE support. STG Duration 02/17/18-improving strength Shelter Goal (LTG) Pt will be able to walk 1 mile . LTG Duration 03/20/18 2 Impairment pain Short Term Goal (STG) Pt's pain will dec to no greater than 2/10 after short bouts of ambulation. STG Duration 02/17/18-improving Grain Scooper Goal (LTG) Pt's pain when on his knees will dec to 3/10 with knee pads. LTG Duration 03/20/18 1 Impairment dec strength Short Term Goal (STG) Pt will be independent with HEP in order to inc strength. STG Duration 02/17/18-achieved progressing HEP Shelter Goal (LTG) Pt will have LE strength of 4/ 5 bilaterally. LTG Duration 03/20/18 Assessment Summary Assessment Pt was challenged by bosu but had significant difficulty with heel raise position in standing especially on LLE maintaining neutral angle of ankle. Difficulty with pt on balance board and unable to gain full balance without UE support even with WBOS Physical Therapy Plan Frequency and Duration Frequency of Treatment 2x/Week Duration of Treatment 2 months Plan of Care Start Date 01/18/19 Plan of Care End Date 03/20/18 Next Visit Focus/Plan Next Note Type Treatment Note Next Visit Plan Balance board, cont to work unstable surfaces & gait progression
--- NOTE | 2018-03-10 12:59 | PT.OTN ---
Current Diagnoses Presence of right artificial knee joint (03/10/18) Physical Therapy Treatment Note PT-OP-A Visit Information Start: 01/18/18 13:39 Freq: Status: Active Protocol: Document 03/10/18 12:52 [facility] (Rec: 03/10/18 12:59 [facility] [id number]) Out-Patient Physical Therapy Visit Information Visit Information Visit Type Treatment Note Visit Start Time 08:15 Visit Stop Time 09:00 Total Visit Minutes 45 Visit Number 4/10 Number of CONCESSION CASHIER Visits 0 PT-OP-B Current Condition Start: 01/18/18 13:39 Freq: Status: Active Protocol: Document 01/18/18 16:07 [facility] (Rec: 01/18/18 16:49 [facility] [id number]) Current Condition History of Current Condition Current Complaints B knee pain History of Current Condition Pt reports that his R knee feels very tight in the ant and lat surface distally. Pt reports L knee also gives him pain. Pain level is dependent on time of day and amount of walk, pain is between 2-4/10. Even as far as walking 100 m into a store, can create pain in knees and he has pain in B hips and it feels like he is wading through water. Reports 5 years ago he used to be able to walk 9 miles into a station, stay 9 hours then 9 miles back when he worked at the [employer]. Pt reports 6x/week he does about 40-50 min on recumbant bike without pain. Pt reports 2 laps (~.5 miles) in [employer] would make him very painful. Pt reports he wants to be able to walk as he used to be able to for exercise. Reports sit to stand is more difficult and from low chairs, he requires use of his UEs and is unable to get up/down from ground, which is difficulty for him d/ t wrist & shoulder pain. 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 Prior Treatments and Tests 1.5 yrs ago rehab for R TKA Treatment Goals Patient/Caregiver Goals Would like to be able to do a mile after PT and plans to cont PT program to improve that to infinate. PT-OP-C Subjective Start: 01/18/18 13:39 Freq: Status: Active Protocol: Document 03/10/18 12:52 [facility] (Rec: 03/10/18 12:59 [facility] [id number]) OP-PT Subjective Patient Comments Patient Comments Pt reports he walked 1/4 mile today after doing bike and calf raises and it felt okay. Noted some hip discomfort. PT-OP-G Mobility & Gait Start: 01/18/18 13:39 Freq: Status: Active Protocol: Document 01/18/18 16:07 [facility] (Rec: 01/18/18 16:49 [facility] [id number]) OP Gait Assessment Comments Gait Comments Pt initiates gait with fwd & lat trunk lean. He has excessive lat leaning of trunk with gait with WB and primary use of LEs to propel himself without any trunk elevation or depression. PT-OP-J Posture/Palpation/Skin Start: 01/18/18 13:39 Freq: Status: Active Protocol: Document 01/18/18 16:07 [facility] (Rec: 01/18/18 17:48 [facility] [id number]) Posture Evaluation [facility] Postural Classification System [facility] Postural Classifications Anterior/Posterior PT-OP-K Range of Motion Start: 01/18/18 13:39 Freq: Status: Active Protocol: Document 01/18/18 16:07 [facility] (Rec: 01/18/18 16:49 [facility] [id number]) Hip Goniometric Range of Motion Hip Measured in Degrees Right Active Testing Position Supine Flexion w/Knee Flexed 95 Left Active Testing Position Supine Flexion w/Knee Flexed 113 Knee Goniometric Range of Motion Knee Measured in Degrees Right Patient Position Supine Flexion Active (degrees) 128 Extension Active (degrees) 3 Left Patient Position Supine Flexion Active (degrees) 129 Extension Active (degrees) 5 PT-OP-L Special Tests Start: 01/18/18 13:39 Freq: Status: Active Protocol: Document 01/18/18 16:07 [facility] (Rec: 01/18/18 16:49 [facility] [id number]) Special Tests Lumbar Spine Special Tests Straight Leg Raise Test Results neg B; slight tight HS with just under 90 deg L Comments about 75 deg hip flex w/ pain in post knee R & HS tightness PT-OP-M Strength Start: 01/18/18 13:39 Freq: Status: Active Protocol: Document 01/18/18 16:07 [facility] (Rec: 01/18/18 16:49 [facility] [id number]) Hip Strength Hip Manual Muscle Testing Right Flexion (L2) 4 Good Extension (S1) 4+ Good+ Abduction 3+ Fair+ External Rotation 5 Normal Internal Rotation 4+ Good+ Comments med knee pain w/ER; discomfort lat hip w/ abd with limited range Left Flexion (L2) 4 Good Extension (S1) 4 Good Abduction 3+ Fair+ External Rotation 5 Normal Internal Rotation 4+ Good+ Comments pain in LB with ext; very limited in abd ROM Knee Strength Knee Manual Muscle Testing Right Flexion (S2) 5 Normal Extension (L3) 5 Normal Left Flexion (S2) 5 Normal Extension (L3) 5 Normal Ankle/Foot Strength Ankle and Foot Manual Muscle Testing Right Dorsiflexion (L4) 5 Normal Plantarflexion (S1) 5 Normal Left Dorsiflexion (L4) 5 Normal Plantarflexion (S1) 5 Normal PT-OP-Q Treatments Start: 01/18/18 13:39 Freq: Status: Active Protocol: Document 03/10/18 12:52 [facility] (Rec: 03/10/18 12:59 [facility] [id number]) Gait Training Gait Activity single step Description working on single step in mirror Comments focus on dec trendelenburg walking Description mirror focus on no lat movement Comments progressed to focus on push off Manual Therapy Treatment Soft Tissue Mobilization QL Body Location QL L Mobilization Type Rolling Neuro Re-Education Treatment Balance Activities SLS Details SLS in mirror Other Activities ant depression Details ant depression COI PT-OP-T Assessment and Plan Start: 01/18/18 13:39 Freq: Status: Active Protocol: Document 03/10/18 12:52 [facility] (Rec: 03/10/18 12:59 [facility] [id number]) Physical Therapy Assessment Goals 3 Impairment dec mobility Short Term Goal (STG) Pt will be able to get up from a low chair without UE support. STG Duration 02/17/18-improving strength Sausage Stuffer Goal (LTG) Pt will be able to walk 1 mile . LTG Duration 03/20/18 2 Impairment pain Short Term Goal (STG) Pt's pain will dec to no greater than 2/10 after short bouts of ambulation. STG Duration 02/17/18-improving Sausage Stuffer Goal (LTG) Pt's pain when on his knees will dec to 3/10 with knee pads. LTG Duration 03/20/18 1 Impairment dec strength Short Term Goal (STG) Pt will be independent with HEP in order to inc strength. STG Duration 02/17/18-achieved progressing HEP Sausage Stuffer Goal (LTG) Pt will have LE strength of 4/ 5 bilaterally. LTG Duration 03/20/18 Assessment Summary Assessment Pt cont to lack functional abd control on RLE for gait and has difficulty even in a controlled single leg position without UE. Physical Therapy Plan Frequency and Duration Frequency of Treatment 2x/Week Duration of Treatment 2 months Plan of Care Start Date 01/18/19 Plan of Care End Date 03/20/18 Next Visit Focus/Plan Next Note Type Treatment Note Next Visit Plan balance board, cont to work on gait breakdown
--- NOTE | 2018-03-16 12:04 | PT.OTN ---
Current Diagnoses Presence of right artificial knee joint (03/16/18) Physical Therapy Treatment Note PT-OP-A Visit Information Start: 01/18/18 13:39 Freq: Status: Active Protocol: Document 03/16/18 08:12 [facility] (Rec: 03/16/18 11:57 [facility] [id number]) Out-Patient Physical Therapy Visit Information Visit Information Visit Type Progress Note Visit Start Time 08:15 Visit Stop Time 09:00 Total Visit Minutes 45 Visit Number / Number of CONTACT WORKER Visits 0 PT-OP-B Current Condition Start: 01/18/18 13:39 Freq: Status: Active Protocol: Document 01/18/18 16:07 [facility] (Rec: 01/18/18 16:49 [facility] [id number]) Current Condition History of Current Condition Current Complaints B knee pain History of Current Condition Pt reports that his R knee feels very tight in the ant and lat surface distally. Pt reports L knee also gives him pain. Pain level is dependent on time of day and amount of walk, pain is between 2-4/10. Even as far as walking 100 m into a store, can create pain in knees and he has pain in B hips and it feels like he is wading through water. Reports 5 years ago he used to be able to walk 9 miles into a station, stay 9 hours then 9 miles back when he worked at the [employer]. Pt reports 6x/week he does about 40-50 min on recumbant bike without pain. Pt reports 2 laps (~.5 miles) in [employer] would make him very painful. Pt reports he wants to be able to walk as he used to be able to for exercise. Reports sit to stand is more difficult and from low chairs, he requires use of his UEs and is unable to get up/down from ground, which is difficulty for him d/ t wrist & shoulder pain. 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 Prior Treatments and Tests 1.5 yrs ago rehab for R TKA Treatment Goals Patient/Caregiver Goals Would like to be able to do a mile after PT and plans to cont PT program to improve that to infinate. PT-OP-C Subjective Start: 01/18/18 13:39 Freq: Status: Active Protocol: Document 03/16/18 08:12 [facility] (Rec: 03/16/18 11:57 [facility] [id number]) OP-PT Subjective Patient Comments Patient Comments Reports his knees have katelyn little sore but he has walked 1/4-1/3 of a mile on the treadmill a few times since last session. PT-OP-G Mobility & Gait Start: 01/18/18 13:39 Freq: Status: Active Protocol: Document 01/18/18 16:07 [facility] (Rec: 01/18/18 16:49 [facility] [id number]) OP Gait Assessment Comments Gait Comments Pt initiates gait with fwd & lat trunk lean. He has excessive lat leaning of trunk with gait with WB and primary use of LEs to propel himself without any trunk elevation or depression. PT-OP-J Posture/Palpation/Skin Start: 01/18/18 13:39 Freq: Status: Active Protocol: Document 01/18/18 16:07 [facility] (Rec: 01/18/18 17:48 [facility] [id number]) Posture Evaluation [place] Postural Classification System [place] Postural Classifications Anterior/Posterior PT-OP-K Range of Motion Start: 01/18/18 13:39 Freq: Status: Active Protocol: Document 01/18/18 16:07 [facility] (Rec: 01/18/18 16:49 [facility] [id number]) Hip Goniometric Range of Motion Hip Measured in Degrees Right Active Testing Position Supine Flexion w/Knee Flexed 95 Left Active Testing Position Supine Flexion w/Knee Flexed 113 Knee Goniometric Range of Motion Knee Measured in Degrees Right Patient Position Supine Flexion Active (degrees) 128 Extension Active (degrees) 3 Left Patient Position Supine Flexion Active (degrees) 129 Extension Active (degrees) 5 PT-OP-L Special Tests Start: 01/18/18 13:39 Freq: Status: Active Protocol: Document 01/18/18 16:07 [facility] (Rec: 01/18/18 16:49 [facility] [id number]) Special Tests Lumbar Spine Special Tests Straight Leg Raise Test Results neg B; slight tight HS with just under 90 deg L Comments about 75 deg hip flex w/ pain in post knee R & HS tightness PT-OP-M Strength Start: 01/18/18 13:39 Freq: Status: Active Protocol: Document 03/16/18 08:12 [facility] (Rec: 03/16/18 12:03 [facility] [id number]) Hip Strength Hip Manual Muscle Testing Right Flexion (L2) 5 Normal Extension (S1) 4+ Good+ Abduction 4 Good External Rotation 5 Normal Internal Rotation 4+ Good+ Comments limited IR range Left Flexion (L2) 4+ Good+ Extension (S1) 4+ Good+ Abduction 4 Good External Rotation 5 Normal Internal Rotation 4+ Good+ Knee Strength Knee Manual Muscle Testing Right Flexion (S2) 4+ Good+ Extension (L3) 5 Normal Left Flexion (S2) 5 Normal Extension (L3) 5 Normal Ankle/Foot Strength Ankle and Foot Manual Muscle Testing Right Dorsiflexion (L4) 5 Normal Plantarflexion (S1) 5 Normal Left Dorsiflexion (L4) 5 Normal Plantarflexion (S1) 5 Normal PT-OP-Q Treatments Start: 01/18/18 13:39 Freq: Status: Active Protocol: Document 03/16/18 08:12 [facility] (Rec: 03/16/18 12:03 [facility] [id number]) Therapeutic Exercises Standing Exercises lunge Standing Exercise Name mini lunge Reps/Minutes 8 Comments in mirror with focus on back leg flex side stepping Standing Exercise Name side step Reps/Minutes mult times in mirror Comments progressed to lvl 1 band Manual Therapy Treatment Soft Tissue Mobilization scar tissue Body Location ant knee Mobilization Type Myofascial Release Intensity/Depth Superficial Comments distal scar tissue lat to med IT band Body Location R Mobilization Type Rolling Comments Rolling PT-OP-T Assessment and Plan Start: 01/18/18 13:39 Freq: Status: Active Protocol: Document 03/16/18 08:12 [facility] (Rec: 03/16/18 11:57 [facility] [id number]) Physical Therapy Assessment Goals 3 Impairment dec mobility Short Term Goal (STG) Pt will be able to get up from a low chair without UE support. STG Duration 03/30/18-improving strength Field Care Manager Goal (LTG) Pt will be able to walk 1 mile . LTG Duration 05/18/18-improving 1/3 mile 2 Impairment pain Short Term Goal (STG) Pt's pain will dec to no greater than 2/10 after short bouts of ambulation. STG Duration achieved Field Care Manager Goal (LTG) Pt's pain when on his knees will dec to 3/10 with knee pads. LTG Duration 05/18/18 1 Impairment dec strength Short Term Goal (STG) Pt will be independent with HEP in order to inc strength. STG Duration 02/17/18-achieved progressing HEP Field Care Manager Goal (LTG) Pt will have LE strength of 4/ 5 bilaterally. LTG Duration achieved Assessment Summary Assessment Pt is improving with strength Physical Therapy Plan Frequency and Duration Frequency of Treatment 2x/Week Duration of Treatment 2 months Plan of Care Start Date 03/16/18 Plan of Care End Date 05/14/18 Therapeutic Interventions Therapeutic Interventions Aquatic Therapy Balance Training Gait Training Home Exercise Program Joint Mobilizations Manual Therapy Neuromuscular Re-education Self-Care/Home Management Soft Tissue Mobilization Taping Therapeutic Activities Therapeutic Exercises Modalities Cold Pack/Ice Massage Electric Stimulation Hot Packs Infrared Therapy Iontophoresis Ultrasound Next Visit Focus/Plan Next Note Type Treatment Note Next Visit Plan hip mobs, balance board, wt shift for sit to stand
--- NOTE | 2018-03-16 12:04 | PT.OPPOC ---
Current Diagnoses Presence of right artificial knee joint (03/16/18) Provider Visit Care Team Role Provider Type Sourav Gamboa MD Primary Care Provider Non-Staff Specialty: Medical Address: [address] [place] [address], [place], [address] Email: Fabrizio Grimes MD Attending Provider Physician Specialty: Orthopedic Surgery Address: [address] [place] [address], [place], [address] Email: [email or web address] Plan Of Care PT-OP-T Assessment and Plan Start: 01/18/18 13:39 Freq: Status: Active Protocol: Document 03/16/18 08:12 [facility] (Rec: 03/16/18 11:57 [facility] [id number]) Physical Therapy Assessment Goals 3 Impairment dec mobility Short Term Goal (STG) Pt will be able to get up from a low chair without UE support. STG Duration 03/30/18-improving strength Intermediate Goal (LTG) Pt will be able to walk 1 mile . LTG Duration 05/18/18-improving 1/3 mile 2 Impairment pain Short Term Goal (STG) Pt's pain will dec to no greater than 2/10 after short bouts of ambulation. STG Duration achieved Intermediate Goal (LTG) Pt's pain when on his knees will dec to 3/10 with knee pads. LTG Duration 05/18/18 1 Impairment dec strength Short Term Goal (STG) Pt will be independent with HEP in order to inc strength. STG Duration 02/17/18-achieved progressing HEP Photograph Enlarger Goal (LTG) Pt will have LE strength of 4/ 5 bilaterally. LTG Duration achieved Assessment Summary Assessment Pt is improving with strength Physical Therapy Plan Frequency and Duration Frequency of Treatment 2x/Week Duration of Treatment 2 months Plan of Care Start Date 03/16/18 Plan of Care End Date 05/14/18 Therapeutic Interventions Therapeutic Interventions Aquatic Therapy Balance Training Gait Training Home Exercise Program Joint Mobilizations Manual Therapy Neuromuscular Re-education Self-Care/Home Management Soft Tissue Mobilization Taping Therapeutic Activities Therapeutic Exercises Modalities Cold Pack/Ice Massage Electric Stimulation Hot Packs Infrared Therapy Iontophoresis Ultrasound Next Visit Focus/Plan Next Note Type Treatment Note Next Visit Plan hip mobs, balance board, wt shift for sit to stand Plan of Care Dates Plan of Care Start Date 03/16/18 Plan of Care End Date 05/14/18 Please Sign and Return: I have reviewed this Plan of Care and certify that the skilled therapy services above are required to meet the patient?s needs. Physician Signature Date Printed Name and Credentials Clinical Instructor Signature Printed Name and Credentials
--- NOTE | 2018-03-21 17:31 | PT.OTN ---
Current Diagnoses Presence of right artificial knee joint (03/21/18) Physical Therapy Treatment Note PT-OP-A Visit Information Start: 01/18/18 13:39 Freq: Status: Active Protocol: Document 03/21/18 14:24 [facility] (Rec: 03/22/18 15:14 [facility] [id number]) Out-Patient Physical Therapy Visit Information Visit Information Visit Type Treatment Note Visit Start Time 09:00 Visit Stop Time 09:40 Total Visit Minutes 40 Visit Number 2/10 Number of CORPORATE TAX PREPARER Visits 0 PT-OP-B Current Condition Start: 01/18/18 13:39 Freq: Status: Active Protocol: Document 01/18/18 16:07 [facility] (Rec: 01/18/18 16:49 [facility] [id number]) Current Condition History of Current Condition Current Complaints B knee pain History of Current Condition Pt reports that his R knee feels very tight in the ant and lat surface distally. Pt reports L knee also gives him pain. Pain level is dependent on time of day and amount of walk, pain is between 2-4/10. Even as far as walking 100 m into a store, can create pain in knees and he has pain in B hips and it feels like he is wading through water. Reports 5 years ago he used to be able to walk 9 miles into a station, stay 9 hours then 9 miles back when he worked at the [employer]. Pt reports 6x/week he does about 40-50 min on recumbant bike without pain. Pt reports 2 laps (~.5 miles) in [employer] would make him very painful. Pt reports he wants to be able to walk as he used to be able to for exercise. Reports sit to stand is more difficult and from low chairs, he requires use of his UEs and is unable to get up/down from ground, which is difficulty for him d/ t wrist & shoulder pain. 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 Prior Treatments and Tests 1.5 yrs ago rehab for R TKA Treatment Goals Patient/Caregiver Goals Would like to be able to do a mile after PT and plans to cont PT program to improve that to infinate. PT-OP-C Subjective Start: 01/18/18 13:39 Freq: Status: Active Protocol: Document 03/21/18 14:24 [facility] (Rec: 03/22/18 15:14 [facility] [id number]) OP-PT Subjective Patient Comments Patient Comments Pt reports he was unable to do the treadmill this AM d/t none available at the gym. PT-OP-G Mobility & Gait Start: 01/18/18 13:39 Freq: Status: Active Protocol: Document 01/18/18 16:07 [facility] (Rec: 01/18/18 16:49 [facility] [id number]) OP Gait Assessment Comments Gait Comments Pt initiates gait with fwd & lat trunk lean. He has excessive lat leaning of trunk with gait with WB and primary use of LEs to propel himself without any trunk elevation or depression. PT-OP-J Posture/Palpation/Skin Start: 01/18/18 13:39 Freq: Status: Active Protocol: Document 01/18/18 16:07 [facility] (Rec: 01/18/18 17:48 [facility] [id number]) Posture Evaluation [facility] Postural Classification System Margaux Postural Classifications Anterior/Posterior PT-OP-K Range of Motion Start: 01/18/18 13:39 Freq: Status: Active Protocol: Document 01/18/18 16:07 [facility] (Rec: 01/18/18 16:49 [facility] [id number]) Hip Goniometric Range of Motion Hip Measured in Degrees Right Active Testing Position Supine Flexion w/Knee Flexed 95 Left Active Testing Position Supine Flexion w/Knee Flexed 113 Knee Goniometric Range of Motion Knee Measured in Degrees Right Patient Position Supine Flexion Active (degrees) 128 Extension Active (degrees) 3 Left Patient Position Supine Flexion Active (degrees) 129 Extension Active (degrees) 5 PT-OP-L Special Tests Start: 01/18/18 13:39 Freq: Status: Active Protocol: Document 01/18/18 16:07 [facility] (Rec: 01/18/18 16:49 [facility] [id number]) Special Tests Lumbar Spine Special Tests Straight Leg Raise Test Results neg B; slight tight HS with just under 90 deg L Comments about 75 deg hip flex w/ pain in post knee R & HS tightness PT-OP-M Strength Start: 01/18/18 13:39 Freq: Status: Active Protocol: Document 03/16/18 08:12 [facility] (Rec: 03/16/18 12:03 [facility] [id number]) Hip Strength Hip Manual Muscle Testing Right Flexion (L2) 5 Normal Extension (S1) 4+ Good+ Abduction 4 Good External Rotation 5 Normal Internal Rotation 4+ Good+ Comments limited IR range Left Flexion (L2) 4+ Good+ Extension (S1) 4+ Good+ Abduction 4 Good External Rotation 5 Normal Internal Rotation 4+ Good+ Knee Strength Knee Manual Muscle Testing Right Flexion (S2) 4+ Good+ Extension (L3) 5 Normal Left Flexion (S2) 5 Normal Extension (L3) 5 Normal Ankle/Foot Strength Ankle and Foot Manual Muscle Testing Right Dorsiflexion (L4) 5 Normal Plantarflexion (S1) 5 Normal Left Dorsiflexion (L4) 5 Normal Plantarflexion (S1) 5 Normal PT-OP-Q Treatments Start: 01/18/18 13:39 Freq: Status: Active Protocol: Document 03/21/18 14:24 [facility] (Rec: 03/22/18 15:14 [facility] [id number]) Gym Equipment Shuttle Balance red clips Details fwd & side WBOS & NBOS, fwd staggered stance Manual Therapy Treatment Soft Tissue Mobilization HS Body Location HS L Mobilization Type Rolling Intensity/Depth Moderate Body Position Supine Comments FM w/knee ext Joint Mobilizations innominate Joint innominate L Direction IR FM hip Joint hip B Direction on axis ER & IR FM Neuro Re-Education Treatment Other Activities hip ROM Details IR & ER COI after mobs PT-OP-T Assessment and Plan Start: 01/18/18 13:39 Freq: Status: Active Protocol: Document 03/21/18 14:24 [facility] (Rec: 03/22/18 15:14 [facility] [id number]) Physical Therapy Assessment Goals 3 Impairment dec mobility Short Term Goal (STG) Pt will be able to get up from a low chair without UE support. STG Duration 03/30/18-improving strength Fpc Goal (LTG) Pt will be able to walk 1 mile . LTG Duration 05/18/18-improving 1/3 mile 2 Impairment pain Short Term Goal (STG) Pt's pain will dec to no greater than 2/10 after short bouts of ambulation. STG Duration achieved Fpc Goal (LTG) Pt's pain when on his knees will dec to 3/10 with knee pads. LTG Duration 05/18/18 1 Impairment dec strength Short Term Goal (STG) Pt will be independent with HEP in order to inc strength. STG Duration 02/17/18-achieved progressing HEP Talent Management Manager Goal (LTG) Pt will have LE strength of 4/ 5 bilaterally. 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 He cont to have impaired overall LE movement patterns, placing inc stress onto knees. Physical Therapy Plan Frequency and Duration Frequency of Treatment 2x/Week Duration of Treatment 2 months Plan of Care Start Date 03/16/18 Plan of Care End Date 05/14/18 Next Visit Focus/Plan Next Note Type Treatment Note Next Visit Plan Cont to work on LE strength especially hip abd
--- NOTE | 2018-03-22 15:14 | PT.OTN ---
Current Diagnoses Presence of right artificial knee joint (03/21/18) Physical Therapy Treatment Note PT-OP-A Visit Information Start: 01/18/18 13:39 Freq: Status: Active Protocol: Document 03/21/18 14:24 [facility] (Rec: 03/22/18 15:14 [facility] [id number]) Out-Patient Physical Therapy Visit Information Visit Information Visit Type Treatment Note Visit Start Time 09:00 Visit Stop Time 09:40 Total Visit Minutes 40 Visit Number 2/10 Number of SSIS ARCHITECT Visits 0 PT-OP-B Current Condition Start: 01/18/18 13:39 Freq: Status: Active Protocol: Document 01/18/18 16:07 [facility] (Rec: 01/18/18 16:49 [facility] [id number]) Current Condition History of Current Condition Current Complaints B knee pain History of Current Condition Pt reports that his R knee feels very tight in the ant and lat surface distally. Pt reports L knee also gives him pain. Pain level is dependent on time of day and amount of walk, pain is between 2-4/10. Even as far as walking 100 m into a store, can create pain in knees and he has pain in B hips and it feels like he is wading through water. Reports 5 years ago he used to be able to walk 9 miles into a station, stay 9 hours then 9 miles back when he worked at the [employer]. Pt reports 6x/week he does about 40-50 min on recumbant bike without pain. Pt reports 2 laps (~.5 miles) in [employer] would make him very painful. Pt reports he wants to be able to walk as he used to be able to for exercise. Reports sit to stand is more difficult and from low chairs, he requires use of his UEs and is unable to get up/down from ground, which is difficulty for him d/ t wrist & shoulder pain. 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 Prior Treatments and Tests 1.5 yrs ago rehab for R TKA Treatment Goals Patient/Caregiver Goals Would like to be able to do a mile after PT and plans to cont PT program to improve that to infinate. PT-OP-C Subjective Start: 01/18/18 13:39 Freq: Status: Active Protocol: Document 03/21/18 14:24 [facility] (Rec: 03/22/18 15:14 [facility] [id number]) OP-PT Subjective Patient Comments Patient Comments Pt reports he was unable to do the treadmill this AM d/t none available at the gym. PT-OP-G Mobility & Gait Start: 01/18/18 13:39 Freq: Status: Active Protocol: Document 01/18/18 16:07 [facility] (Rec: 01/18/18 16:49 [facility] [id number]) OP Gait Assessment Comments Gait Comments Pt initiates gait with fwd & lat trunk lean. He has excessive lat leaning of trunk with gait with WB and primary use of LEs to propel himself without any trunk elevation or depression. PT-OP-J Posture/Palpation/Skin Start: 01/18/18 13:39 Freq: Status: Active Protocol: Document 01/18/18 16:07 [facility] (Rec: 01/18/18 17:48 [facility] [id number]) Posture Evaluation [facility] Postural Classification System Margaux Postural Classifications Anterior/Posterior PT-OP-K Range of Motion Start: 01/18/18 13:39 Freq: Status: Active Protocol: Document 01/18/18 16:07 [facility] (Rec: 01/18/18 16:49 [facility] [id number]) Hip Goniometric Range of Motion Hip Measured in Degrees Right Active Testing Position Supine Flexion w/Knee Flexed 95 Left Active Testing Position Supine Flexion w/Knee Flexed 113 Knee Goniometric Range of Motion Knee Measured in Degrees Right Patient Position Supine Flexion Active (degrees) 128 Extension Active (degrees) 3 Left Patient Position Supine Flexion Active (degrees) 129 Extension Active (degrees) 5 PT-OP-L Special Tests Start: 01/18/18 13:39 Freq: Status: Active Protocol: Document 01/18/18 16:07 [facility] (Rec: 01/18/18 16:49 [facility] [id number]) Special Tests Lumbar Spine Special Tests Straight Leg Raise Test Results neg B; slight tight HS with just under 90 deg L Comments about 75 deg hip flex w/ pain in post knee R & HS tightness PT-OP-M Strength Start: 01/18/18 13:39 Freq: Status: Active Protocol: Document 03/16/18 08:12 [facility] (Rec: 03/16/18 12:03 [facility] [id number]) Hip Strength Hip Manual Muscle Testing Right Flexion (L2) 5 Normal Extension (S1) 4+ Good+ Abduction 4 Good External Rotation 5 Normal Internal Rotation 4+ Good+ Comments limited IR range Left Flexion (L2) 4+ Good+ Extension (S1) 4+ Good+ Abduction 4 Good External Rotation 5 Normal Internal Rotation 4+ Good+ Knee Strength Knee Manual Muscle Testing Right Flexion (S2) 4+ Good+ Extension (L3) 5 Normal Left Flexion (S2) 5 Normal Extension (L3) 5 Normal Ankle/Foot Strength Ankle and Foot Manual Muscle Testing Right Dorsiflexion (L4) 5 Normal Plantarflexion (S1) 5 Normal Left Dorsiflexion (L4) 5 Normal Plantarflexion (S1) 5 Normal PT-OP-Q Treatments Start: 01/18/18 13:39 Freq: Status: Active Protocol: Document 03/21/18 14:24 [facility] (Rec: 03/22/18 15:14 [facility] [id number]) Gym Equipment Shuttle Balance red clips Details fwd & side WBOS & NBOS, fwd staggered stance Manual Therapy Treatment Soft Tissue Mobilization HS Body Location HS L Mobilization Type Rolling Intensity/Depth Moderate Body Position Supine Comments FM w/knee ext Joint Mobilizations innominate Joint innominate L Direction IR FM hip Joint hip B Direction on axis ER & IR FM Neuro Re-Education Treatment Other Activities hip ROM Details IR & ER COI after mobs PT-OP-T Assessment and Plan Start: 01/18/18 13:39 Freq: Status: Active Protocol: Document 03/21/18 14:24 [facility] (Rec: 03/22/18 15:14 [facility] [id number]) Physical Therapy Assessment Goals 3 Impairment dec mobility Short Term Goal (STG) Pt will be able to get up from a low chair without UE support. STG Duration 03/30/18-improving strength Shelter Goal (LTG) Pt will be able to walk 1 mile . LTG Duration 05/18/18-improving 1/3 mile 2 Impairment pain Short Term Goal (STG) Pt's pain will dec to no greater than 2/10 after short bouts of ambulation. STG Duration achieved Shelter Goal (LTG) Pt's pain when on his knees will dec to 3/10 with knee pads. LTG Duration 05/18/18 1 Impairment dec strength Short Term Goal (STG) Pt will be independent with HEP in order to inc strength. STG Duration 02/17/18-achieved progressing HEP Automotive Engineering Teacher Goal (LTG) Pt will have LE strength of 4/ 5 bilaterally. 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 He cont to have impaired overall LE movement patterns, placing inc stress onto knees. Physical Therapy Plan Frequency and Duration Frequency of Treatment 2x/Week Duration of Treatment 2 months Plan of Care Start Date 03/16/18 Plan of Care End Date 05/14/18 Next Visit Focus/Plan Next Note Type Treatment Note Next Visit Plan Cont to work on LE strength especially hip abd
--- NOTE | 2018-03-23 09:36 | PT.OTN ---
Current Diagnoses Presence of right artificial knee joint (03/23/18) Physical Therapy Treatment Note PT-OP-A Visit Information Start: 01/18/18 13:39 Freq: Status: Active Protocol: Document 03/23/18 07:29 [facility] (Rec: 03/23/18 08:18 [facility] [id number]) Out-Patient Physical Therapy Visit Information Visit Information Visit Type Treatment Note Visit Start Time 07:30 Visit Stop Time 08:13 Total Visit Minutes 43 Visit Number 3/10 Number of PHARMACEUTICAL SALES SPECIALIST Visits 0 PT-OP-B Current Condition Start: 01/18/18 13:39 Freq: Status: Active Protocol: Document 01/18/18 16:07 [facility] (Rec: 01/18/18 16:49 [facility] [id number]) Current Condition History of Current Condition Current Complaints B knee pain History of Current Condition Pt reports that his R knee feels very tight in the ant and lat surface distally. Pt reports L knee also gives him pain. Pain level is dependent on time of day and amount of walk, pain is between 2-4/10. Even as far as walking 100 m into a store, can create pain in knees and he has pain in B hips and it feels like he is wading through water. Reports 5 years ago he used to be able to walk 9 miles into a station, stay 9 hours then 9 miles back when he worked at the [employer]. Pt reports 6x/week he does about 40-50 min on recumbant bike without pain. Pt reports 2 laps (~.5 miles) in [employer] would make him very painful. Pt reports he wants to be able to walk as he used to be able to for exercise. Reports sit to stand is more difficult and from low chairs, he requires use of his UEs and is unable to get up/down from ground, which is difficulty for him d/ t wrist & shoulder pain. 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 Prior Treatments and Tests 1.5 yrs ago rehab for R TKA Treatment Goals Patient/Caregiver Goals Would like to be able to do a mile after PT and plans to cont PT program to improve that to infinate. PT-OP-C Subjective Start: 01/18/18 13:39 Freq: Status: Active Protocol: Document 03/23/18 07:29 [facility] (Rec: 03/23/18 08:18 [facility] [id number]) OP-PT Subjective Patient Comments Patient Comments Pt reports a gout like response in his foot/ankle region. Reports he does not think it has anything to do with PT. PT-OP-G Mobility & Gait Start: 01/18/18 13:39 Freq: Status: Active Protocol: Document 01/18/18 16:07 [facility] (Rec: 01/18/18 16:49 [facility] [id number]) OP Gait Assessment Comments Gait Comments Pt initiates gait with fwd & lat trunk lean. He has excessive lat leaning of trunk with gait with WB and primary use of LEs to propel himself without any trunk elevation or depression. PT-OP-J Posture/Palpation/Skin Start: 01/18/18 13:39 Freq: Status: Active Protocol: Document 01/18/18 16:07 [facility] (Rec: 01/18/18 17:48 [facility] [id number]) Posture Evaluation [facility] Postural Classification System [facility] Postural Classifications Anterior/Posterior PT-OP-K Range of Motion Start: 01/18/18 13:39 Freq: Status: Active Protocol: Document 01/18/18 16:07 [facility] (Rec: 01/18/18 16:49 [facility] [id number]) Hip Goniometric Range of Motion Hip Measured in Degrees Right Active Testing Position Supine Flexion w/Knee Flexed 95 Left Active Testing Position Supine Flexion w/Knee Flexed 113 Knee Goniometric Range of Motion Knee Measured in Degrees Right Patient Position Supine Flexion Active (degrees) 128 Extension Active (degrees) 3 Left Patient Position Supine Flexion Active (degrees) 129 Extension Active (degrees) 5 PT-OP-L Special Tests Start: 01/18/18 13:39 Freq: Status: Active Protocol: Document 01/18/18 16:07 [facility] (Rec: 01/18/18 16:49 [facility] [id number]) Special Tests Lumbar Spine Special Tests Straight Leg Raise Test Results neg B; slight tight HS with just under 90 deg L Comments about 75 deg hip flex w/ pain in post knee R & HS tightness PT-OP-M Strength Start: 01/18/18 13:39 Freq: Status: Active Protocol: Document 03/16/18 08:12 [facility] (Rec: 03/16/18 12:03 [facility] [id number]) Hip Strength Hip Manual Muscle Testing Right Flexion (L2) 5 Normal Extension (S1) 4+ Good+ Abduction 4 Good External Rotation 5 Normal Internal Rotation 4+ Good+ Comments limited IR range Left Flexion (L2) 4+ Good+ Extension (S1) 4+ Good+ Abduction 4 Good External Rotation 5 Normal Internal Rotation 4+ Good+ Knee Strength Knee Manual Muscle Testing Right Flexion (S2) 4+ Good+ Extension (L3) 5 Normal Left Flexion (S2) 5 Normal Extension (L3) 5 Normal Ankle/Foot Strength Ankle and Foot Manual Muscle Testing Right Dorsiflexion (L4) 5 Normal Plantarflexion (S1) 5 Normal Left Dorsiflexion (L4) 5 Normal Plantarflexion (S1) 5 Normal PT-OP-Q Treatments Start: 01/18/18 13:39 Freq: Status: Active Protocol: Document 03/23/18 07:29 [facility] (Rec: 03/23/18 08:18 [facility] [id number]) Gym Equipment Shuttle Balance red clips Details fwd & side WBOS & NBOS, fwd staggered stance Therapeutic Exercises Supine Exercises SLR Supine Exercise Name SLR with IR of femur Reps/Minutes 10 Comments focus on core Standing Exercises side stepping Standing Exercise Name sidestep with squat Reps/Minutes 20 ft B Comments edu to keep core tight Manual Therapy Treatment Soft Tissue Mobilization thigh Body Location circumfrential STM R thigh Mobilization Type Myofascial Release Intensity/Depth Superficial scar tissue Body Location ant knee Mobilization Type Myofascial Release Intensity/Depth Superficial Comments distal scar tissue lat to med Joint Mobilizations hip Joint hip B Direction on axis IR FM Body Position Supine PT-OP-T Assessment and Plan Start: 01/18/18 13:39 Freq: Status: Active Protocol: Document 03/23/18 07:29 [facility] (Rec: 03/23/18 08:18 [facility] [id number]) Physical Therapy Assessment Goals 3 Impairment dec mobility Short Term Goal (STG) Pt will be able to get up from a low chair without UE support. STG Duration 03/30/18-improving strength Store Grocery Merchandiser Goal (LTG) Pt will be able to walk 1 mile . LTG Duration 05/18/18-improving 1/3 mile 2 Impairment pain Short Term Goal (STG) Pt's pain will dec to no greater than 2/10 after short bouts of ambulation. STG Duration achieved Store Grocery Merchandiser Goal (LTG) Pt's pain when on his knees will dec to 05/21 with knee pads. LTG Duration 05/18/18 Assessment Summary Assessment Pt was able to activate VMO better with cueing for IR of LE when doing quad set and SLR . He was able to do side step and squat without inc in pain when cued for core tightening. Pt improving with balance on balance board. Physical Therapy Plan Frequency and Duration Frequency of Treatment 2x/Week Duration of Treatment 2 months Plan of Care Start Date 03/16/18 Plan of Care End Date 05/14/18 Next Visit Focus/Plan Next Note Type Treatment Note Next Visit Plan wt shift for sit to stand & hip abd
--- NOTE | 2018-03-28 17:15 | PT.OTN ---
Current Diagnoses Presence of right artificial knee joint (03/28/18) Physical Therapy Treatment Note PT-OP-A Visit Information Start: 01/18/18 13:39 Freq: Status: Active Protocol: Document 03/28/18 17:09 [facility] (Rec: 03/28/18 17:15 [facility] [id number]) Out-Patient Physical Therapy Visit Information Visit Information Visit Type Treatment Note Visit Note 4 visits 2018 Visit Start Time 09:00 Visit Stop Time 09:45 Total Visit Minutes 45 Visit Number 4/10 Number of [employer]ERAL AIR MARSHAL Visits 0 PT-OP-B Current Condition Start: 01/18/18 13:39 Freq: Status: Active Protocol: Document 01/18/18 16:07 [facility] (Rec: 01/18/18 16:49 [facility] [id number]) Current Condition History of Current Condition Current Complaints B knee pain History of Current Condition Pt reports that his R knee feels very tight in the ant and lat surface distally. Pt reports L knee also gives him pain. Pain level is dependent on time of day and amount of walk, pain is between 2-4/10. Even as far as walking 100 m into a store, can create pain in knees and he has pain in B hips and it feels like he is wading through water. Reports 5 years ago he used to be able to walk 9 miles into a station, stay 9 hours then 9 miles back when he worked at the [employer]. Pt reports 6x/week he does about 40-50 min on recumbant bike without pain. Pt reports 2 laps (~.5 miles) in [employer] would make him very painful. Pt reports he wants to be able to walk as he used to be able to for exercise. Reports sit to stand is more difficult and from low chairs, he requires use of his UEs and is unable to get up/down from ground, which is difficulty for him d/ t wrist & shoulder pain. 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 Prior Treatments and Tests 1.5 yrs ago rehab for R TKA Treatment Goals Patient/Caregiver Goals Would like to be able to do a mile after PT and plans to cont PT program to improve that to infinate. PT-OP-C Subjective Start: 01/18/18 13:39 Freq: Status: Active Protocol: Document 03/28/18 17:09 [facility] (Rec: 03/28/18 17:15 [facility] [id number]) OP-PT Subjective Patient Comments Patient Comments Pt reports R knee is a little stiff today. He did not do 10 min on treadmill d/t all taken up. PT-OP-G Mobility & Gait Start: 01/18/18 13:39 Freq: Status: Active Protocol: Document 01/18/18 16:07 [facility] (Rec: 01/18/18 16:49 [facility] [id number]) OP Gait Assessment Comments Gait Comments Pt initiates gait with fwd & lat trunk lean. He has excessive lat leaning of trunk with gait with WB and primary use of LEs to propel himself without any trunk elevation or depression. PT-OP-J Posture/Palpation/Skin Start: 01/18/18 13:39 Freq: Status: Active Protocol: Document 01/18/18 16:07 [facility] (Rec: 01/18/18 17:48 [facility] [id number]) Posture Evaluation [facility] Postural Classification System [facility] Postural Classifications Anterior/Posterior PT-OP-K Range of Motion Start: 01/18/18 13:39 Freq: Status: Active Protocol: Document 01/18/18 16:07 [facility] (Rec: 01/18/18 16:49 [facility] [id number]) Hip Goniometric Range of Motion Hip Measured in Degrees Right Active Testing Position Supine Flexion w/Knee Flexed 95 Left Active Testing Position Supine Flexion w/Knee Flexed 113 Knee Goniometric Range of Motion Knee Measured in Degrees Right Patient Position Supine Flexion Active (degrees) 128 Extension Active (degrees) 3 Left Patient Position Supine Flexion Active (degrees) 129 Extension Active (degrees) 5 PT-OP-L Special Tests Start: 01/18/18 13:39 Freq: Status: Active Protocol: Document 01/18/18 16:07 [facility] (Rec: 01/18/18 16:49 [facility] [id number]) Special Tests Lumbar Spine Special Tests Straight Leg Raise Test Results neg B; slight tight HS with just under 90 deg L Comments about 75 deg hip flex w/ pain in post knee R & HS tightness PT-OP-M Strength Start: 01/18/18 13:39 Freq: Status: Active Protocol: Document 03/16/18 08:12 [facility] (Rec: 03/16/18 12:03 [facility] [id number]) Hip Strength Hip Manual Muscle Testing Right Flexion (L2) 5 Normal Extension (S1) 4+ Good+ Abduction 4 Good External Rotation 5 Normal Internal Rotation 4+ Good+ Comments limited IR range Left Flexion (L2) 4+ Good+ Extension (S1) 4+ Good+ Abduction 4 Good External Rotation 5 Normal Internal Rotation 4+ Good+ Knee Strength Knee Manual Muscle Testing Right Flexion (S2) 4+ Good+ Extension (L3) 5 Normal Left Flexion (S2) 5 Normal Extension (L3) 5 Normal Ankle/Foot Strength Ankle and Foot Manual Muscle Testing Right Dorsiflexion (L4) 5 Normal Plantarflexion (S1) 5 Normal Left Dorsiflexion (L4) 5 Normal Plantarflexion (S1) 5 Normal PT-OP-Q Treatments Start: 01/18/18 13:39 Freq: Status: Active Protocol: Document 03/28/18 17:09 [facility] (Rec: 03/28/18 17:15 [facility] [id number]) Gym Equipment Shuttle Balance red clips Details fwd & side WBOS & NBOS, fwd staggered stance Therapeutic Ball HS curls Exercise Details HS curls Ball Size/Color 65 CM Body Position Supine Manual Therapy Treatment Soft Tissue Mobilization thigh Body Location circumfrential STM R thigh Mobilization Type Myofascial Release Intensity/Depth Superficial Comments into IR w/quad set IT band Body Location R Mobilization Type Rolling Comments Rolling Manual Techniques hip IR Type c/r R hip IR stretch PT-OP-T Assessment and Plan Start: 01/18/18 13:39 Freq: Status: Active Protocol: Document 03/28/18 17:09 [facility] (Rec: 03/28/18 17:15 [facility] [id number]) Physical Therapy Assessment Goals 3 Impairment dec mobility Short Term Goal (STG) Pt will be able to get up from a low chair without UE support. STG Duration 03/30/18-improving strength Halfway Goal (LTG) Pt will be able to walk 1 mile . LTG Duration 05/18/18-improving 1/3 mile 2 Impairment pain Short Term Goal (STG) Pt's pain will dec to no greater than 2/10 after short bouts of ambulation. STG Duration achieved Halfway Goal (LTG) Pt's pain when on his knees will dec to 3/10 with knee pads. LTG Duration 05/18/18 1 Impairment dec strength Short Term Goal (STG) Pt will be independent with HEP in order to inc strength. STG Duration 02/17/18-achieved progressing HEP Halfway Goal (LTG) Pt will have LE strength of 4/ 5 bilaterally. LTG Duration achieved Assessment Summary Assessment Pt is improving with ability to balance on balance board. He may be able to be challenged with head turns and /or throwing/catching object. He cont to have ER of femur that likely contributes to knee pain. Physical Therapy Plan Frequency and Duration Frequency of Treatment 2x/Week Duration of Treatment 2 months Plan of Care Start Date 03/16/18 Plan of Care End Date 05/14/18 Next Visit Focus/Plan Next Note Type Treatment Note Next Visit Plan wt shift for sit to stand, abd exercises
--- NOTE | 2018-03-30 08:53 | PT.OTN ---
Current Diagnoses Presence of right artificial knee joint (03/30/18) Physical Therapy Treatment Note PT-OP-A Visit Information Start: 01/18/18 13:39 Freq: Status: Active Protocol: Document 03/30/18 08:27 [facility] (Rec: 03/30/18 08:53 [facility] [id number]) Out-Patient Physical Therapy Visit Information Visit Information Visit Type Initial Evaluation Visit Note 5 visits 2018 Visit Start Time 07:30 Visit Stop Time 08:15 Total Visit Minutes 45 Visit Number 5/ Number of VEHICLE ASSEMBLY INSPECTOR Visits 0 PT-OP-B Current Condition Start: 01/18/18 13:39 Freq: Status: Active Protocol: Document 01/18/18 16:07 [facility] (Rec: 01/18/18 16:49 [facility] [id number]) Current Condition History of Current Condition Current Complaints B knee pain History of Current Condition Pt reports that his R knee feels very tight in the ant and lat surface distally. Pt reports L knee also gives him pain. Pain level is dependent on time of day and amount of walk, pain is between 2-4/10. Even as far as walking 100 m into a store, can create pain in knees and he has pain in B hips and it feels like he is wading through water. Reports 5 years ago he used to be able to walk 9 miles into a station, stay 9 hours then 9 miles back when he worked at the [employer]. Pt reports 6x/week he does about 40-50 min on recumbant bike without pain. Pt reports 2 laps (~.5 miles) in [employer] would make him very painful. Pt reports he wants to be able to walk as he used to be able to for exercise. Reports sit to stand is more difficult and from low chairs, he requires use of his UEs and is unable to get up/down from ground, which is difficulty for him d/ t wrist & shoulder pain. 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 Prior Treatments and Tests 1.5 yrs ago rehab for R TKA Treatment Goals Patient/Caregiver Goals Would like to be able to do a mile after PT and plans to cont PT program to improve that to infinate. PT-OP-C Subjective Start: 01/18/18 13:39 Freq: Status: Active Protocol: Document 03/30/18 08:27 [facility] (Rec: 03/30/18 08:53 [facility] [id number]) OP-PT Subjective Patient Comments Patient Comments Pt reports his back and R knee are sore from tweaking them yesterday. He did a lot of walking from his room to the carport to get wood which includes a step and an incline . He reports he tweaked his back bending over to greens picker pieces he dropped. PT-OP-G Mobility & Gait Start: 01/18/18 13:39 Freq: Status: Active Protocol: Document 01/18/18 16:07 [facility] (Rec: 01/18/18 16:49 [facility] [id number]) OP Gait Assessment Comments Gait Comments Pt initiates gait with fwd & lat trunk lean. He has excessive lat leaning of trunk with gait with WB and primary use of LEs to propel himself without any trunk elevation or depression. PT-OP-J Posture/Palpation/Skin Start: 01/18/18 13:39 Freq: Status: Active Protocol: Document 01/18/18 16:07 [facility] (Rec: 01/18/18 17:48 [facility] [id number]) Posture Evaluation [facility] Postural Classification System [facility] Postural Classifications Anterior/Posterior PT-OP-K Range of Motion Start: 01/18/18 13:39 Freq: Status: Active Protocol: Document 01/18/18 16:07 [facility] (Rec: 01/18/18 16:49 [facility] [id number]) Hip Goniometric Range of Motion Hip Measured in Degrees Right Active Testing Position Supine Flexion w/Knee Flexed 95 Left Active Testing Position Supine Flexion w/Knee Flexed 113 Knee Goniometric Range of Motion Knee Measured in Degrees Right Patient Position Supine Flexion Active (degrees) 128 Extension Active (degrees) 3 Left Patient Position Supine Flexion Active (degrees) 129 Extension Active (degrees) 5 PT-OP-L Special Tests Start: 01/18/18 13:39 Freq: Status: Active Protocol: Document 01/18/18 16:07 [facility] (Rec: 01/18/18 16:49 [facility] [id number]) Special Tests Lumbar Spine Special Tests Straight Leg Raise Test Results neg B; slight tight HS with just under 90 deg L Comments about 75 deg hip flex w/ pain in post knee R & HS tightness PT-OP-M Strength Start: 01/18/18 13:39 Freq: Status: Active Protocol: Document 03/16/18 08:12 [facility] (Rec: 03/16/18 12:03 [facility] [id number]) Hip Strength Hip Manual Muscle Testing Right Flexion (L2) 5 Normal Extension (S1) 4+ Good+ Abduction 4 Good External Rotation 5 Normal Internal Rotation 4+ Good+ Comments limited IR range Left Flexion (L2) 4+ Good+ Extension (S1) 4+ Good+ Abduction 4 Good External Rotation 5 Normal Internal Rotation 4+ Good+ Knee Strength Knee Manual Muscle Testing Right Flexion (S2) 4+ Good+ Extension (L3) 5 Normal Left Flexion (S2) 5 Normal Extension (L3) 5 Normal Ankle/Foot Strength Ankle and Foot Manual Muscle Testing Right Dorsiflexion (L4) 5 Normal Plantarflexion (S1) 5 Normal Left Dorsiflexion (L4) 5 Normal Plantarflexion (S1) 5 Normal PT-OP-Q Treatments Start: 01/18/18 13:39 Freq: Status: Active Protocol: Document 03/30/18 08:27 [facility] (Rec: 03/30/18 08:53 [facility] [id number]) Therapeutic Exercises Standing Exercises lunge Standing Exercise Name mini lunge Reps/Minutes 5 Comments in mirror with focus on back leg flex Therapeutic Activity Therapeutic Activity lifting Comments edu on proper bending and lifting mechanics Manual Therapy Treatment Soft Tissue Mobilization thigh Body Location circumfrential STM R thigh Mobilization Type Myofascial Release Intensity/Depth Superficial Comments into IR w/quad set scar tissue Body Location ant knee Mobilization Type Myofascial Release Intensity/Depth Superficial Comments distal scar tissue lat to med IT band Body Location R Mobilization Type Rolling Comments Rolling Joint Mobilizations patellar Joint patfem Direction med, sup, inf fibula Joint tibfib Direction AP FM PT-OP-T Assessment and Plan Start: 01/18/18 13:39 Freq: Status: Active Protocol: Document 03/30/18 08:27 [facility] (Rec: 03/30/18 08:53 [facility] [id number]) Physical Therapy Assessment Goals 3 Impairment dec mobility Short Term Goal (STG) Pt will be able to get up from a low chair without UE support. STG Duration 03/30/18-improving strength Retirement Goal (LTG) Pt will be able to walk 1 mile . LTG Duration 05/18/18-improving 1/3 mile 2 Impairment pain Short Term Goal (STG) Pt's pain will dec to no greater than 2/10 after short bouts of ambulation. STG Duration achieved Academic Coach Goal (LTG) Pt's pain when on his knees will dec to 3/10 with knee pads. LTG Duration 05/18/18 Assessment Summary Assessment Pt was very sore today so did not spend extra time with exercise today. Pt able to improved lunge form but stopped at 5 reps d/t overall pain today. Physical Therapy Plan Frequency and Duration Frequency of Treatment 2x/Week Duration of Treatment 2 months Plan of Care Start Date 03/16/18 Plan of Care End Date 05/14/18 Next Visit Focus/Plan Next Note Type Treatment Note Next Visit Plan wt shift for sit to stand, abd exercises
--- NOTE | 2018-04-05 08:16 | PT.OTN ---
Current Diagnoses Presence of right artificial knee joint (04/04/18) Physical Therapy Treatment Note PT-OP-A Visit Information Start: 01/18/18 13:39 Freq: Status: Active Protocol: Document 04/04/18 08:15 [facility] (Rec: 04/05/18 08:16 [facility] [id number]) Out-Patient Physical Therapy Visit Information Visit Information Visit Type Treatment Note Visit Note 6 visits 2018 Visit Start Time 08:15 Visit Stop Time 09:00 Total Visit Minutes 45 Visit Number 08/21 Number of GAS LEAK TESTER Visits 0 PT-OP-B Current Condition Start: 01/18/18 13:39 Freq: Status: Active Protocol: Document 01/18/18 16:07 [facility] (Rec: 01/18/18 16:49 [facility] [id number]) Current Condition History of Current Condition Current Complaints B knee pain History of Current Condition Pt reports that his R knee feels very tight in the ant and lat surface distally. Pt reports L knee also gives him pain. Pain level is dependent on time of day and amount of walk, pain is between 2-4/10. Even as far as walking 100 m into a store, can create pain in knees and he has pain in B hips and it feels like he is wading through water. Reports 5 years ago he used to be able to walk 9 miles into a station, stay 9 hours then 9 miles back when he worked at the [employer]. Pt reports 6x/week he does about 40-50 min on recumbant bike without pain. Pt reports 2 laps (~.5 miles) in [employer] would make him very painful. Pt reports he wants to be able to walk as he used to be able to for exercise. Reports sit to stand is more difficult and from low chairs, he requires use of his UEs and is unable to get up/down from ground, which is difficulty for him d/ t wrist & shoulder pain. 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 Prior Treatments and Tests 1.5 yrs ago rehab for R TKA Treatment Goals Patient/Caregiver Goals Would like to be able to do a mile after PT and plans to cont PT program to improve that to infinate. PT-OP-C Subjective Start: 01/18/18 13:39 Freq: Status: Active Protocol: Document 04/04/18 08:15 [facility] (Rec: 04/05/18 08:16 [facility] [id number]) OP-PT Subjective Patient Comments Patient Comments Pt reports he has noticed he is getting slightly better as he goes along. Notes he walked .5 mile on treadmill and stopped d/t being bored. Patient Reported Progress Improving PT-OP-G Mobility & Gait Start: 01/18/18 13:39 Freq: Status: Active Protocol: Document 01/18/18 16:07 [facility] (Rec: 01/18/18 16:49 [facility] [id number]) OP Gait Assessment Comments Gait Comments Pt initiates gait with fwd & lat trunk lean. He has excessive lat leaning of trunk with gait with WB and primary use of LEs to propel himself without any trunk elevation or depression. PT-OP-J Posture/Palpation/Skin Start: 01/18/18 13:39 Freq: Status: Active Protocol: Document 01/18/18 16:07 [facility] (Rec: 01/18/18 17:48 [facility] [id number]) Posture Evaluation [facility] Postural Classification System [facility] Postural Classifications Anterior/Posterior PT-OP-K Range of Motion Start: 01/18/18 13:39 Freq: Status: Active Protocol: Document 01/18/18 16:07 [facility] (Rec: 01/18/18 16:49 [facility] [id number]) Hip Goniometric Range of Motion Hip Measured in Degrees Right Active Testing Position Supine Flexion w/Knee Flexed 95 Left Active Testing Position Supine Flexion w/Knee Flexed 113 Knee Goniometric Range of Motion Knee Measured in Degrees Right Patient Position Supine Flexion Active (degrees) 128 Extension Active (degrees) 3 Left Patient Position Supine Flexion Active (degrees) 129 Extension Active (degrees) 5 PT-OP-L Special Tests Start: 01/18/18 13:39 Freq: Status: Active Protocol: Document 01/18/18 16:07 [facility] (Rec: 01/18/18 16:49 [facility] [id number]) Special Tests Lumbar Spine Special Tests Straight Leg Raise Test Results neg B; slight tight HS with just under 90 deg L Comments about 75 deg hip flex w/ pain in post knee R & HS tightness PT-OP-M Strength Start: 01/18/18 13:39 Freq: Status: Active Protocol: Document 03/16/18 08:12 [facility] (Rec: 03/16/18 12:03 [facility] [id number]) Hip Strength Hip Manual Muscle Testing Right Flexion (L2) 5 Normal Extension (S1) 4+ Good+ Abduction 4 Good External Rotation 5 Normal Internal Rotation 4+ Good+ Comments limited IR range Left Flexion (L2) 4+ Good+ Extension (S1) 4+ Good+ Abduction 4 Good External Rotation 5 Normal Internal Rotation 4+ Good+ Knee Strength Knee Manual Muscle Testing Right Flexion (S2) 4+ Good+ Extension (L3) 5 Normal Left Flexion (S2) 5 Normal Extension (L3) 5 Normal Ankle/Foot Strength Ankle and Foot Manual Muscle Testing Right Dorsiflexion (L4) 5 Normal Plantarflexion (S1) 5 Normal Left Dorsiflexion (L4) 5 Normal Plantarflexion (S1) 5 Normal PT-OP-Q Treatments Start: 01/18/18 13:39 Freq: Status: Active Protocol: Document 04/04/18 08:15 [facility] (Rec: 04/05/18 08:16 [facility] [id number]) Gym Equipment Shuttle Balance red clips Details fwd & side WBOS & NBOS, fwd staggered stance Comments while tossing balloon Therapeutic Exercises Standing Exercises side stepping Standing Exercise Name sidestep with squat Equipment Used L1 Reps/Minutes 20 ft B Comments edu to keep core tight Manual Therapy Treatment Soft Tissue Mobilization thigh Body Location circumfrential STM R thigh Mobilization Type Myofascial Release Intensity/Depth Superficial Comments into IR w/quad set scar tissue Body Location ant knee Mobilization Type Myofascial Release Intensity/Depth Superficial Comments distal scar tissue lat to med Joint Mobilizations patellar Joint patfem Direction med, sup, inf Manual Techniques hip IR Type c/r R hip IR stretch PT-OP-T Assessment and Plan Start: 01/18/18 13:39 Freq: Status: Active Protocol: Document 04/04/18 08:15 [facility] (Rec: 04/05/18 08:16 [facility] [id number]) Physical Therapy Assessment Goals 3 Impairment dec mobility Short Term Goal (STG) Pt will be able to get up from a low chair without UE support. STG Duration 03/30/18-improving strength Senior Living Goal (LTG) Pt will be able to walk 1 mile . LTG Duration 05/18/18-improving 1/3 mile 2 Impairment pain Short Term Goal (STG) Pt's pain will dec to no greater than 2/10 after short bouts of ambulation. STG Duration achieved Senior Living Goal (LTG) Pt's pain when on his knees will dec to 3/10 with knee pads. LTG Duration 05/18/18 Assessment Summary Assessment Improved hip IR after c/r stretching and soft tissue mobilziations. He did well with inc in resistance with side step with squat requiring cueing for squat. Difficulty when working with balance board and doing UE activities. Physical Therapy Plan Frequency and Duration Frequency of Treatment 2x/Week Duration of Treatment 2 months Plan of Care Start Date 03/16/18 Plan of Care End Date 05/14/18 Next Visit Focus/Plan Next Note Type Treatment Note Next Visit Plan work on wt shift for sit to stand
--- NOTE | 2018-04-06 09:09 | PT.OTN ---
Current Diagnoses Presence of right artificial knee joint (04/06/18) Physical Therapy Treatment Note PT-OP-A Visit Information Start: 01/18/18 13:39 Freq: Status: Active Protocol: Document 04/06/18 07:28 [facility] (Rec: 04/06/18 08:37 [facility] [id number]) Out-Patient Physical Therapy Visit Information Visit Information Visit Type Treatment Note Visit Note 7 visits 2018 Visit Start Time 07:30 Visit Stop Time 08:15 Total Visit Minutes 45 Visit Number 09/20 Number of FORDER OPERATOR Visits 0 PT-OP-B Current Condition Start: 01/18/18 13:39 Freq: Status: Active Protocol: Document 01/18/18 16:07 [facility] (Rec: 01/18/18 16:49 [facility] [id number]) Current Condition History of Current Condition Current Complaints B knee pain History of Current Condition Pt reports that his R knee feels very tight in the ant and lat surface distally. Pt reports L knee also gives him pain. Pain level is dependent on time of day and amount of walk, pain is between 2-4/10. Even as far as walking 100 m into a store, can create pain in knees and he has pain in B hips and it feels like he is wading through water. Reports 5 years ago he used to be able to walk 9 miles into a station, stay 9 hours then 9 miles back when he worked at the [employer]. Pt reports 6x/week he does about 40-50 min on recumbant bike without pain. Pt reports 2 laps (~.5 miles) in [employer] would make him very painful. Pt reports he wants to be able to walk as he used to be able to for exercise. Reports sit to stand is more difficult and from low chairs, he requires use of his UEs and is unable to get up/down from ground, which is difficulty for him d/ t wrist & shoulder pain. 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 Prior Treatments and Tests 1.5 yrs ago rehab for R TKA Treatment Goals Patient/Caregiver Goals Would like to be able to do a mile after PT and plans to cont PT program to improve that to infinate. PT-OP-C Subjective Start: 01/18/18 13:39 Freq: Status: Active Protocol: Document 04/06/18 07:28 [facility] (Rec: 04/06/18 08:37 [facility] [id number]) OP-PT Subjective Patient Comments Patient Comments Pt reports he did a lot of up. /down a ladder so he does have some R knee pain. Improved ability to get up/down from couch. PT-OP-G Mobility & Gait Start: 01/18/18 13:39 Freq: Status: Active Protocol: Document 01/18/18 16:07 [facility] (Rec: 01/18/18 16:49 [facility] [id number]) OP Gait Assessment Comments Gait Comments Pt initiates gait with fwd & lat trunk lean. He has excessive lat leaning of trunk with gait with WB and primary use of LEs to propel himself without any trunk elevation or depression. PT-OP-J Posture/Palpation/Skin Start: 01/18/18 13:39 Freq: Status: Active Protocol: Document 01/18/18 16:07 [facility] (Rec: 01/18/18 17:48 [facility] [id number]) Posture Evaluation Margaux Postural Classification System Margaux Postural Classifications Anterior/Posterior PT-OP-K Range of Motion Start: 01/18/18 13:39 Freq: Status: Active Protocol: Document 01/18/18 16:07 [facility] (Rec: 01/18/18 16:49 [facility] [id number]) Hip Goniometric Range of Motion Hip Measured in Degrees Right Active Testing Position Supine Flexion w/Knee Flexed 95 Left Active Testing Position Supine Flexion w/Knee Flexed 113 Knee Goniometric Range of Motion Knee Measured in Degrees Right Patient Position Supine Flexion Active (degrees) 128 Extension Active (degrees) 3 Left Patient Position Supine Flexion Active (degrees) 129 Extension Active (degrees) 5 PT-OP-L Special Tests Start: 01/18/18 13:39 Freq: Status: Active Protocol: Document 01/18/18 16:07 [facility] (Rec: 01/18/18 16:49 [facility] [id number]) Special Tests Lumbar Spine Special Tests Straight Leg Raise Test Results neg B; slight tight HS with just under 90 deg L Comments about 75 deg hip flex w/ pain in post knee R & HS tightness PT-OP-M Strength Start: 01/18/18 13:39 Freq: Status: Active Protocol: Document 03/16/18 08:12 [facility] (Rec: 03/16/18 12:03 [facility] [id number]) Hip Strength Hip Manual Muscle Testing Right Flexion (L2) 5 Normal Extension (S1) 4+ Good+ Abduction 4 Good External Rotation 5 Normal Internal Rotation 4+ Good+ Comments limited IR range Left Flexion (L2) 4+ Good+ Extension (S1) 4+ Good+ Abduction 4 Good External Rotation 5 Normal Internal Rotation 4+ Good+ Knee Strength Knee Manual Muscle Testing Right Flexion (S2) 4+ Good+ Extension (L3) 5 Normal Left Flexion (S2) 5 Normal Extension (L3) 5 Normal Ankle/Foot Strength Ankle and Foot Manual Muscle Testing Right Dorsiflexion (L4) 5 Normal Plantarflexion (S1) 5 Normal Left Dorsiflexion (L4) 5 Normal Plantarflexion (S1) 5 Normal PT-OP-Q Treatments Start: 01/18/18 13:39 Freq: Status: Active Protocol: Document 04/06/18 07:28 [facility] (Rec: 04/06/18 08:37 [facility] [id number]) Gym Equipment Shuttle Balance red clips Details fwd & side WBOS & NBOS, fwd staggered stance Comments with head turns Manual Therapy Treatment Joint Mobilizations Tibfemoral Joint TF Direction AP on tibia Manual Techniques hip IR Type c/r R hip IR stretch Comments B Neuro Re-Education Treatment Other Activities sit to stand Details sit to stand faciliation Comments work on fwd lean with wt shifting PT-OP-T Assessment and Plan Start: 01/18/18 13:39 Freq: Status: Active Protocol: Document 04/06/18 07:28 [facility] (Rec: 04/06/18 08:37 [facility] [id number]) Physical Therapy Assessment Goals 3 Impairment dec mobility Short Term Goal (STG) Pt will be able to get up from a low chair without UE support. STG Duration 03/30/18-improving strength Senior Care Goal (LTG) Pt will be able to walk 1 mile . LTG Duration 05/18/18-improving 1/3 mile 2 Impairment pain Short Term Goal (STG) Pt's pain will dec to no greater than 2/10 after short bouts of ambulation. STG Duration achieved Garbage Collector Driver Goal (LTG) Pt's pain when on his knees will dec to 3/10 with knee pads. LTG Duration 05/18/18 Assessment Summary Assessment Pt improves with sit to stand with AP tibial glide. He is improving iwth ability to balance which likely shows improvement in abd strength Physical Therapy Plan Frequency and Duration Frequency of Treatment 2x/Week Duration of Treatment 2 months Plan of Care Start Date 03/16/18 Plan of Care End Date 05/14/18 Next Visit Focus/Plan Next Note Type Treatment Note Next Visit Plan work on quad strength
--- NOTE | 2018-04-11 13:53 | PT.OTN ---
Current Diagnoses Presence of right artificial knee joint (04/11/18) Physical Therapy Treatment Note PT-OP-A Visit Information Start: 01/18/18 13:39 Freq: Status: Active Protocol: Document 04/11/18 08:22 [facility] (Rec: 04/11/18 13:53 [facility] [id number]) Out-Patient Physical Therapy Visit Information Visit Information Visit Type Treatment Note Visit Note 8 visits 2018 Visit Start Time 08:10 Visit Stop Time 08:55 Total Visit Minutes 45 Visit Number 10/21 Number of MACHINIST TOOL AND DIE Visits 0 PT-OP-B Current Condition Start: 01/18/18 13:39 Freq: Status: Active Protocol: Document 01/18/18 16:07 [facility] (Rec: 01/18/18 16:49 [facility] [id number]) Current Condition History of Current Condition Current Complaints B knee pain History of Current Condition Pt reports that his R knee feels very tight in the ant and lat surface distally. Pt reports L knee also gives him pain. Pain level is dependent on time of day and amount of walk, pain is between 2-4/10. Even as far as walking 100 m into a store, can create pain in knees and he has pain in B hips and it feels like he is wading through water. Reports 5 years ago he used to be able to walk 9 miles into a station, stay 9 hours then 9 miles back when he worked at the [employer]. Pt reports 6x/week he does about 40-50 min on recumbant bike without pain. Pt reports 2 laps (~.5 miles) in [employer] would make him very painful. Pt reports he wants to be able to walk as he used to be able to for exercise. Reports sit to stand is more difficult and from low chairs, he requires use of his UEs and is unable to get up/down from ground, which is difficulty for him d/ t wrist & shoulder pain. 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 Prior Treatments and Tests 1.5 yrs ago rehab for R TKA Treatment Goals Patient/Caregiver Goals Would like to be able to do a mile after PT and plans to cont PT program to improve that to infinate. PT-OP-C Subjective Start: 01/18/18 13:39 Freq: Status: Active Protocol: Document 04/11/18 08:22 [facility] (Rec: 04/11/18 13:53 [facility] [id number]) OP-PT Subjective Patient Comments Patient Comments Pt reported he was up and down the ladder a few times and had a fall. PT-OP-G Mobility & Gait Start: 01/18/18 13:39 Freq: Status: Active Protocol: Document 01/18/18 16:07 [facility] (Rec: 01/18/18 16:49 [facility] [id number]) OP Gait Assessment Comments Gait Comments Pt initiates gait with fwd & lat trunk lean. He has excessive lat leaning of trunk with gait with WB and primary use of LEs to propel himself without any trunk elevation or depression. PT-OP-J Posture/Palpation/Skin Start: 01/18/18 13:39 Freq: Status: Active Protocol: Document 01/18/18 16:07 [facility] (Rec: 01/18/18 17:48 [facility] [id number]) Posture Evaluation [facility] Postural Classification System Margaux Postural Classifications Anterior/Posterior PT-OP-K Range of Motion Start: 01/18/18 13:39 Freq: Status: Active Protocol: Document 01/18/18 16:07 [facility] (Rec: 01/18/18 16:49 [facility] [id number]) Hip Goniometric Range of Motion Hip Measured in Degrees Right Active Testing Position Supine Flexion w/Knee Flexed 95 Left Active Testing Position Supine Flexion w/Knee Flexed 113 Knee Goniometric Range of Motion Knee Measured in Degrees Right Patient Position Supine Flexion Active (degrees) 128 Extension Active (degrees) 3 Left Patient Position Supine Flexion Active (degrees) 129 Extension Active (degrees) 5 PT-OP-L Special Tests Start: 01/18/18 13:39 Freq: Status: Active Protocol: Document 01/18/18 16:07 [facility] (Rec: 01/18/18 16:49 [facility] [id number]) Special Tests Lumbar Spine Special Tests Straight Leg Raise Test Results neg B; slight tight HS with just under 90 deg L Comments about 75 deg hip flex w/ pain in post knee R & HS tightness PT-OP-M Strength Start: 01/18/18 13:39 Freq: Status: Active Protocol: Document 03/16/18 08:12 [facility] (Rec: 03/16/18 12:03 [facility] [id number]) Hip Strength Hip Manual Muscle Testing Right Flexion (L2) 5 Normal Extension (S1) 4+ Good+ Abduction 4 Good External Rotation 5 Normal Internal Rotation 4+ Good+ Comments limited IR range Left Flexion (L2) 4+ Good+ Extension (S1) 4+ Good+ Abduction 4 Good External Rotation 5 Normal Internal Rotation 4+ Good+ Knee Strength Knee Manual Muscle Testing Right Flexion (S2) 4+ Good+ Extension (L3) 5 Normal Left Flexion (S2) 5 Normal Extension (L3) 5 Normal Ankle/Foot Strength Ankle and Foot Manual Muscle Testing Right Dorsiflexion (L4) 5 Normal Plantarflexion (S1) 5 Normal Left Dorsiflexion (L4) 5 Normal Plantarflexion (S1) 5 Normal PT-OP-Q Treatments Start: 01/18/18 13:39 Freq: Status: Active Protocol: Document 04/11/18 08:22 [facility] (Rec: 04/11/18 13:53 [facility] [id number]) Cardio Equipment Treadmill Duration (Minutes) 5 Speed 2.5 Gym Equipment Cable Column (Body Solid) Leg Curl Resistance 7 Reps/Time 3x10 Shuttle Balance red clips Details fwd & side WBOS & NBOS, fwd staggered stance Comments with head turns Manual Therapy Treatment Soft Tissue Mobilization thigh Body Location circumfrential STM R thigh Mobilization Type Myofascial Release Intensity/Depth Superficial Comments into IR w/quad set scar tissue Body Location ant knee Mobilization Type Myofascial Release Intensity/Depth Superficial Comments distal scar tissue lat to med IT band Body Location R Mobilization Type Rolling Comments Rolling Manual Techniques hip IR Type c/r R hip IR stretch Comments B PT-OP-T Assessment and Plan Start: 01/18/18 13:39 Freq: Status: Active Protocol: Document 04/11/18 08:22 [facility] (Rec: 04/11/18 13:53 [facility] [id number]) Physical Therapy Assessment Goals 3 Impairment dec mobility Short Term Goal (STG) Pt will be able to get up from a low chair without UE support. STG Duration 03/30/18-improving strength Drug Regulatory Affairs Specialist Goal (LTG) Pt will be able to walk 1 mile . LTG Duration 05/18/18-improving 1/3 mile 2 Impairment pain Short Term Goal (STG) Pt's pain will dec to no greater than 2/10 after short bouts of ambulation. STG Duration achieved Drug Regulatory Affairs Specialist Goal (LTG) Pt's pain when on his knees will dec to 05/21 with knee pads. LTG Duration 05/18/18 Assessment Summary Assessment Pt able to tolerate .2 miles on treadmill and was cued for posture and core engagment. Educated on how to set up on HS machine at gym. Improving thigh myofascial mobility Physical Therapy Plan Frequency and Duration Frequency of Treatment 2x/Week Duration of Treatment 2 months Plan of Care Start Date 03/16/18 Plan of Care End Date 05/14/18 Next Visit Focus/Plan Next Note Type Treatment Note Next Visit Plan cont to advance glute/abd strength
--- NOTE | 2018-04-13 08:19 | PT.OTN ---
Current Diagnoses Presence of right artificial knee joint (04/13/18) Physical Therapy Treatment Note PT-OP-A Visit Information Start: 01/18/18 13:39 Freq: Status: Active Protocol: Document 04/13/18 07:25 [facility] (Rec: 04/13/18 08:19 [facility] [id number]) Out-Patient Physical Therapy Visit Information Visit Information Visit Type Treatment Note Visit Note 8 visits 2019 Visit Start Time 07:30 Visit Stop Time 08:15 Total Visit Minutes 45 Visit Number 9/10 Number of OPEN HEARTH FURNACE OPERATOR HELPER Visits 0 PT-OP-B Current Condition Start: 01/18/18 13:39 Freq: Status: Active Protocol: Document 01/18/18 16:07 [facility] (Rec: 01/18/18 16:49 [facility] [id number]) Current Condition History of Current Condition Current Complaints B knee pain History of Current Condition Pt reports that his R knee feels very tight in the ant and lat surface distally. Pt reports L knee also gives him pain. Pain level is dependent on time of day and amount of walk, pain is between 2-4/10. Even as far as walking 100 m into a store, can create pain in knees and he has pain in B hips and it feels like he is wading through water. Reports 5 years ago he used to be able to walk 9 miles into a station, stay 9 hours then 9 miles back when he worked at the [employer]. Pt reports 6x/week he does about 40-50 min on recumbant bike without pain. Pt reports 2 laps (~.5 miles) in [employer] would make him very painful. Pt reports he wants to be able to walk as he used to be able to for exercise. Reports sit to stand is more difficult and from low chairs, he requires use of his UEs and is unable to get up/down from ground, which is difficulty for him d/ t wrist & shoulder pain. 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 Prior Treatments and Tests 1.5 yrs ago rehab for R TKA Treatment Goals Patient/Caregiver Goals Would like to be able to do a mile after PT and plans to cont PT program to improve that to infinate. PT-OP-C Subjective Start: 01/18/18 13:39 Freq: Status: Active Protocol: Document 04/13/18 07:25 [facility] (Rec: 04/13/18 08:19 [facility] [id number]) OP-PT Subjective Patient Comments Patient Comments Pt reports he walked .3 miles on the treadmill in 7 min then had to leave for his appt. PT-OP-G Mobility & Gait Start: 01/18/18 13:39 Freq: Status: Active Protocol: Document 01/18/18 16:07 [facility] (Rec: 01/18/18 16:49 [facility] [id number]) OP Gait Assessment Comments Gait Comments Pt initiates gait with fwd & lat trunk lean. He has excessive lat leaning of trunk with gait with WB and primary use of LEs to propel himself without any trunk elevation or depression. PT-OP-J Posture/Palpation/Skin Start: 01/18/18 13:39 Freq: Status: Active Protocol: Document 01/18/18 16:07 [facility] (Rec: 01/18/18 17:48 [facility] [id number]) Posture Evaluation [facility] Postural Classification System Margaux Postural Classifications Anterior/Posterior PT-OP-K Range of Motion Start: 01/18/18 13:39 Freq: Status: Active Protocol: Document 01/18/18 16:07 [facility] (Rec: 01/18/18 16:49 [facility] [id number]) Hip Goniometric Range of Motion Hip Measured in Degrees Right Active Testing Position Supine Flexion w/Knee Flexed 95 Left Active Testing Position Supine Flexion w/Knee Flexed 113 Knee Goniometric Range of Motion Knee Measured in Degrees Right Patient Position Supine Flexion Active (degrees) 128 Extension Active (degrees) 3 Left Patient Position Supine Flexion Active (degrees) 129 Extension Active (degrees) 5 PT-OP-L Special Tests Start: 01/18/18 13:39 Freq: Status: Active Protocol: Document 01/18/18 16:07 [facility] (Rec: 01/18/18 16:49 [facility] [id number]) Special Tests Lumbar Spine Special Tests Straight Leg Raise Test Results neg B; slight tight HS with just under 90 deg L Comments about 75 deg hip flex w/ pain in post knee R & HS tightness PT-OP-M Strength Start: 01/18/18 13:39 Freq: Status: Active Protocol: Document 03/16/18 08:12 [facility] (Rec: 03/16/18 12:03 [facility] [id number]) Hip Strength Hip Manual Muscle Testing Right Flexion (L2) 5 Normal Extension (S1) 4+ Good+ Abduction 4 Good External Rotation 5 Normal Internal Rotation 4+ Good+ Comments limited IR range Left Flexion (L2) 4+ Good+ Extension (S1) 4+ Good+ Abduction 4 Good External Rotation 5 Normal Internal Rotation 4+ Good+ Knee Strength Knee Manual Muscle Testing Right Flexion (S2) 4+ Good+ Extension (L3) 5 Normal Left Flexion (S2) 5 Normal Extension (L3) 5 Normal Ankle/Foot Strength Ankle and Foot Manual Muscle Testing Right Dorsiflexion (L4) 5 Normal Plantarflexion (S1) 5 Normal Left Dorsiflexion (L4) 5 Normal Plantarflexion (S1) 5 Normal PT-OP-Q Treatments Start: 01/18/18 13:39 Freq: Status: Active Protocol: Document 04/13/18 07:25 [facility] (Rec: 04/13/18 08:19 [facility] [id number]) Gym Equipment Shuttle Balance red clips Details fwd & side WBOS & NBOS, fwd staggered stance Comments with head turns Therapeutic Exercises Standing Exercises lunge Standing Exercise Name mini lunge Reps/Minutes 10 Comments in mirror with focus on back leg flex side stepping Standing Exercise Name sidestep with squat Equipment Used L1 Reps/Minutes 20 ft B Comments edu to keep core tight Manual Therapy Treatment Soft Tissue Mobilization thigh Body Location circumfrential STM R thigh Mobilization Type Myofascial Release Intensity/Depth Superficial Comments into IR w/quad set scar tissue Body Location ant knee Mobilization Type Myofascial Release Intensity/Depth Superficial Comments distal scar tissue lat to med Joint Mobilizations Tibfemoral Joint TF Direction AP on tibia & Femur PT-OP-T Assessment and Plan Start: 01/18/18 13:39 Freq: Status: Active Protocol: Document 04/13/18 07:25 [facility] (Rec: 04/13/18 08:19 [facility] [id number]) Physical Therapy Assessment Goals 3 Impairment dec mobility Short Term Goal (STG) Pt will be able to get up from a low chair without UE support. STG Duration 03/30/18-improving strength Senior Care Goal (LTG) Pt will be able to walk 1 mile . LTG Duration 05/18/18-improving 1/3 mile 2 Impairment pain Short Term Goal (STG) Pt's pain will dec to no greater than 2/10 after short bouts of ambulation. STG Duration achieved Senior Care Goal (LTG) Pt's pain when on his knees will dec to 3/10 with knee pads. LTG Duration 05/18/18 Assessment Summary Assessment Pt did better with balance board and head turns today. He was able to maintain balance well in all positions except staggered stance. Improved squat side step form today. Physical Therapy Plan Frequency and Duration Frequency of Treatment 2x/Week Duration of Treatment 2 months Plan of Care Start Date 03/16/18 Plan of Care End Date 05/14/18 Next Visit Focus/Plan Next Note Type Treatment Note Next Visit Plan cont to advance glute/abd strength; resisted step ups
--- NOTE | 2018-04-19 08:59 | PT.OTN ---
Current Diagnoses Presence of right artificial knee joint (04/19/18) Physical Therapy Treatment Note PT-OP-A Visit Information Start: 01/18/18 13:39 Freq: Status: Active Protocol: Document 04/19/18 07:42 [facility] (Rec: 04/19/18 08:59 [facility] [id number]) Out-Patient Physical Therapy Visit Information Visit Information Visit Type Progress Note Visit Note 9 visits 2018 Visit Start Time 07:25 Visit Stop Time 08:10 Total Visit Minutes 45 Visit Number 03/23 Number of POWER ELECTRONICS RESEARCH ENGINEER Visits 0 PT-OP-B Current Condition Start: 01/18/18 13:39 Freq: Status: Active Protocol: Document 01/18/18 16:07 [facility] (Rec: 01/18/18 16:49 [facility] [id number]) Current Condition History of Current Condition Current Complaints B knee pain History of Current Condition Pt reports that his R knee feels very tight in the ant and lat surface distally. Pt reports L knee also gives him pain. Pain level is dependent on time of day and amount of walk, pain is between 2-4/10. Even as far as walking 100 m into a store, can create pain in knees and he has pain in B hips and it feels like he is wading through water. Reports 5 years ago he used to be able to walk 9 miles into a station, stay 9 hours then 9 miles back when he worked at the [employer].. Pt reports 6x/week he does about 40-50 min on recumbant bike without pain. Pt reports 2 laps (~.5 miles) in [employer] would make him very painful. Pt reports he wants to be able to walk as he used to be able to for exercise. Reports sit to stand is more difficult and from low chairs, he requires use of his UEs and is unable to get up/down from ground, which is difficulty for him d/ t wrist & shoulder pain. 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 Prior Treatments and Tests 1.5 yrs ago rehab for R TKA Treatment Goals Patient/Caregiver Goals Would like to be able to do a mile after PT and plans to cont PT program to improve that to infinate. PT-OP-C Subjective Start: 01/18/18 13:39 Freq: Status: Active Protocol: Document 04/19/18 07:42 [facility] (Rec: 04/19/18 08:59 [facility] [id number]) OP-PT Subjective Patient Comments Patient Comments Reports he has noticed pain in innominates after doing abd/ add machines PT-OP-G Mobility & Gait Start: 01/18/18 13:39 Freq: Status: Active Protocol: Document 01/18/18 16:07 [facility] (Rec: 01/18/18 16:49 [facility] [id number]) OP Gait Assessment Comments Gait Comments Pt initiates gait with fwd & lat trunk lean. He has excessive lat leaning of trunk with gait with WB and primary use of LEs to propel himself without any trunk elevation or depression. PT-OP-J Posture/Palpation/Skin Start: 01/18/18 13:39 Freq: Status: Active Protocol: Document 01/18/18 16:07 [facility] (Rec: 01/18/18 17:48 [facility] [id number]) Posture Evaluation [facility] Postural Classification System Margaux Postural Classifications Anterior/Posterior PT-OP-K Range of Motion Start: 01/18/18 13:39 Freq: Status: Active Protocol: Document 01/18/18 16:07 [facility] (Rec: 01/18/18 16:49 [facility] [id number]) Hip Goniometric Range of Motion Hip Measured in Degrees Right Active Testing Position Supine Flexion w/Knee Flexed 95 Left Active Testing Position Supine Flexion w/Knee Flexed 113 Knee Goniometric Range of Motion Knee Measured in Degrees Right Patient Position Supine Flexion Active (degrees) 128 Extension Active (degrees) 3 Left Patient Position Supine Flexion Active (degrees) 129 Extension Active (degrees) 5 PT-OP-L Special Tests Start: 01/18/18 13:39 Freq: Status: Active Protocol: Document 01/18/18 16:07 [facility] (Rec: 01/18/18 16:49 [facility] [id number]) Special Tests Lumbar Spine Special Tests Straight Leg Raise Test Results neg B; slight tight HS with just under 90 deg L Comments about 75 deg hip flex w/ pain in post knee R & HS tightness PT-OP-M Strength Start: 01/18/18 13:39 Freq: Status: Active Protocol: Document 04/19/18 07:42 [facility] (Rec: 04/19/18 08:59 [facility] [id number]) Hip Strength Hip Manual Muscle Testing Right Flexion (L2) 5 Normal Extension (S1) 5 Normal Abduction 4 Good Adduction 5 Normal External Rotation 5 Normal Internal Rotation 5 Normal Left Flexion (L2) 5 Normal Extension (S1) 5 Normal Abduction 4 Good Adduction 4+ Good+ External Rotation 5 Normal Knee Strength Knee Manual Muscle Testing Right Flexion (S2) 5 Normal Extension (L3) 5 Normal Left Flexion (S2) 5 Normal Extension (L3) 5 Normal PT-OP-Q Treatments Start: 01/18/18 13:39 Freq: Status: Active Protocol: Document 04/19/18 07:42 [facility] (Rec: 04/19/18 08:59 [facility] [id number]) Cardio Equipment Treadmill Duration (Minutes) 7 Speed 2-2.5 Gym Equipment Shuttle Balance red clips Details fwd & side WBOS & NBOS, fwd staggered stance Comments with head turns Manual Therapy Treatment Joint Mobilizations innominate Joint B Direction abd FM hip Joint B Direction distraction w/abd C/R; inf abd glide FM Self-Care/Home Management Treatment Education Other Education discussion of innominate movement with motions of LE PT-OP-T Assessment and Plan Start: 01/18/18 13:39 Freq: Status: Active Protocol: Document 04/19/18 07:42 [facility] (Rec: 04/19/18 08:59 [facility] [id number]) Physical Therapy Assessment Goals 3 Impairment dec mobility Short Term Goal (STG) Pt will be able to get up from a low chair without UE support. STG Duration 03/30/18-improving strength Jail Goal (LTG) Pt will be able to walk 1 mile . LTG Duration 05/18/18-improving 1/2 mile 2 Impairment pain Short Term Goal (STG) Pt's pain will dec to no greater than 2/10 after short bouts of ambulation. STG Duration achieved Jail Goal (LTG) Pt's pain when on his knees will dec to 3/10 with knee pads. LTG Duration 05/18/18 Assessment Summary Assessment Pt cont to progress with balance, but has limitation with innominate motion which when he moves his LE creates hip and knee pain. He improved ROM with innominate and hip mobilizations but is weak in the gained range. HIs strength is improving but his abduction still is the most limited. Physical Therapy Plan Frequency and Duration Frequency of Treatment 2x/Week Duration of Treatment 2 months Plan of Care Start Date 03/16/18 Plan of Care End Date 05/14/18 Next Visit Focus/Plan Next Note Type Treatment Note Next Visit Plan cont to advance glute/abd strength; resisted step ups
--- NOTE | 2018-04-28 10:18 | PT.OPPN ---
Current Diagnoses Presence of right artificial knee joint (04/28/18) Physical Therapy Progress Note PT-OP-A Visit Information Start: 01/18/18 13:39 Freq: Status: Active Protocol: Document 04/19/18 07:42 [facility] (Rec: 04/19/18 08:59 [facility] [id number]) Out-Patient Physical Therapy Visit Information Visit Information Visit Type Progress Note Visit Note 9 visits 2018 Visit Start Time 07:25 Visit Stop Time 08:10 Total Visit Minutes 45 Visit Number 03/23 Number of PRODUCTION SUPERVISOR TRAINEE Visits 0 PT-OP-B Current Condition Start: 01/18/18 13:39 Freq: Status: Active Protocol: Document 01/18/18 16:07 [facility] (Rec: 01/18/18 16:49 [facility] [id number]) Current Condition History of Current Condition Current Complaints B knee pain History of Current Condition Pt reports that his R knee feels very tight in the ant and lat surface distally. Pt reports L knee also gives him pain. Pain level is dependent on time of day and amount of walk, pain is between 2-4/10. Even as far as walking 100 m into a store, can create pain in knees and he has pain in B hips and it feels like he is wading through water. Reports 5 years ago he used to be able to walk 9 miles into a station, stay 9 hours then 9 miles back when he worked at the [employer]. Pt reports 6x/week he does about 40-50 min on recumbant bike without pain. Pt reports 2 laps (~.5 miles) in [employer] would make him very painful. Pt reports he wants to be able to walk as he used to be able to for exercise. Reports sit to stand is more difficult and from low chairs, he requires use of his UEs and is unable to get up/down from ground, which is difficulty for him d/ t wrist & shoulder pain. 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 Prior Treatments and Tests 1.5 yrs ago rehab for R TKA Treatment Goals Patient/Caregiver Goals Would like to be able to do a mile after PT and plans to cont PT program to improve that to infinate. PT-OP-C Subjective Start: 01/18/18 13:39 Freq: Status: Active Protocol: Document 04/19/18 07:42 [facility] (Rec: 04/19/18 08:59 [facility] [id number]) OP-PT Subjective Patient Comments Patient Comments Reports he has noticed pain in innominates after doing abd/ add machines PT-OP-G Mobility & Gait Start: 01/18/18 13:39 Freq: Status: Active Protocol: Document 01/18/18 16:07 [facility] (Rec: 01/18/18 16:49 [facility] [id number]) OP Gait Assessment Comments Gait Comments Pt initiates gait with fwd & lat trunk lean. He has excessive lat leaning of trunk with gait with WB and primary use of LEs to propel himself without any trunk elevation or depression. PT-OP-J Posture/Palpation/Skin Start: 01/18/18 13:39 Freq: Status: Active Protocol: Document 01/18/18 16:07 [facility] (Rec: 01/18/18 17:48 [facility] [id number]) Posture Evaluation [facility] Postural Classification System Margaux Postural Classifications Anterior/Posterior PT-OP-K Range of Motion Start: 01/18/18 13:39 Freq: Status: Active Protocol: Document 01/18/18 16:07 [facility] (Rec: 01/18/18 16:49 [facility] [id number]) Hip Goniometric Range of Motion Hip Measured in Degrees Right Active Testing Position Supine Flexion w/Knee Flexed 95 Left Active Testing Position Supine Flexion w/Knee Flexed 113 Knee Goniometric Range of Motion Knee Measured in Degrees Right Patient Position Supine Flexion Active (degrees) 128 Extension Active (degrees) 3 Left Patient Position Supine Flexion Active (degrees) 129 Extension Active (degrees) 5 PT-OP-L Special Tests Start: 01/18/18 13:39 Freq: Status: Active Protocol: Document 01/18/18 16:07 [facility] (Rec: 01/18/18 16:49 [facility] [id number]) Special Tests Lumbar Spine Special Tests Straight Leg Raise Test Results neg B; slight tight HS with just under 90 deg L Comments about 75 deg hip flex w/ pain in post knee R & HS tightness PT-OP-M Strength Start: 01/18/18 13:39 Freq: Status: Active Protocol: Document 04/19/18 07:42 [facility] (Rec: 04/19/18 08:59 [facility] [id number]) Hip Strength Hip Manual Muscle Testing Right Flexion (L2) 5 Normal Extension (S1) 5 Normal Abduction 4 Good Adduction 5 Normal External Rotation 5 Normal Internal Rotation 5 Normal Left Flexion (L2) 5 Normal Extension (S1) 5 Normal Abduction 4 Good Adduction 4+ Good+ External Rotation 5 Normal Knee Strength Knee Manual Muscle Testing Right Flexion (S2) 5 Normal Extension (L3) 5 Normal Left Flexion (S2) 5 Normal Extension (L3) 5 Normal PT-OP-T Assessment and Plan Start: 01/18/18 13:39 Freq: Status: Active Protocol: Document 04/19/18 07:42 [facility] (Rec: 04/19/18 08:59 [facility] [id number]) Physical Therapy Assessment Goals 3 Impairment dec mobility Short Term Goal (STG) Pt will be able to get up from a low chair without UE support. STG Duration 03/30/18-improving strength Long-Term Goal (LTG) Pt will be able to walk 1 mile . LTG Duration 05/18/18-improving 1/2 mile 2 Impairment pain Short Term Goal (STG) Pt's pain will dec to no greater than 2/10 after short bouts of ambulation. STG Duration achieved Mold Stamper Goal (LTG) Pt's pain when on his knees will dec to 3/10 with knee pads. LTG Duration 05/18/18 Assessment Summary Assessment Pt cont to progress with balance, but has limitation with innominate motion which when he moves his LE creates hip and knee pain. He improved ROM with innominate and hip mobilizations but is weak in the gained range. HIs strength is improving but his abduction still is the most limited. Physical Therapy Plan Frequency and Duration Frequency of Treatment 2x/Week Duration of Treatment 2 months Plan of Care Start Date 03/16/18 Plan of Care End Date 05/14/18 Next Visit Focus/Plan Next Note Type Treatment Note Next Visit Plan cont to advance glute/abd strength; resisted step ups
--- NOTE | 2018-04-28 10:25 | PT.OTN ---
Current Diagnoses Presence of right artificial knee joint (04/28/18) Physical Therapy Treatment Note PT-OP-A Visit Information Start: 01/18/18 13:39 Freq: Status: Active Protocol: Document 04/28/18 10:15 [facility] (Rec: 04/28/18 10:25 [facility] [id number]) Out-Patient Physical Therapy Visit Information Visit Information Visit Type Treatment Note Visit Note 10 visits 2018 Visit Start Time 07:25 Visit Stop Time 08:15 Total Visit Minutes 50 Visit Number 2/10 Number of JOB ESTIMATOR Visits 0 PT-OP-B Current Condition Start: 01/18/18 13:39 Freq: Status: Active Protocol: Document 01/18/18 16:07 [facility] (Rec: 01/18/18 16:49 [facility] [id number]) Current Condition History of Current Condition Current Complaints B knee pain History of Current Condition Pt reports that his R knee feels very tight in the ant and lat surface distally. Pt reports L knee also gives him pain. Pain level is dependent on time of day and amount of walk, pain is between 2-4/10. Even as far as walking 100 m into a store, can create pain in knees and he has pain in B hips and it feels like he is wading through water. Reports 5 years ago he used to be able to walk 9 miles into a station, stay 9 hours then 9 miles back when he worked at the [employer]. Pt reports 6x/week he does about 40-50 min on recumbant bike without pain. Pt reports 2 laps (~.5 miles) in [employer] would make him very painful. Pt reports he wants to be able to walk as he used to be able to for exercise. Reports sit to stand is more difficult and from low chairs, he requires use of his UEs and is unable to get up/down from ground, which is difficulty for him d/ t wrist & shoulder pain. 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 Prior Treatments and Tests 1.5 yrs ago rehab for R TKA Treatment Goals Patient/Caregiver Goals Would like to be able to do a mile after PT and plans to cont PT program to improve that to infinate. PT-OP-C Subjective Start: 01/18/18 13:39 Freq: Status: Active Protocol: Document 04/28/18 10:15 [facility] (Rec: 04/28/18 10:25 [facility] [id number]) OP-PT Subjective Patient Comments Patient Comments Pt reports his LB and hips have been bothering him, limiting his mobility. He has been down on the ground working on setting up wiring at his house. PT-OP-G Mobility & Gait Start: 01/18/18 13:39 Freq: Status: Active Protocol: Document 01/18/18 16:07 [facility] (Rec: 01/18/18 16:49 [facility] [id number]) OP Gait Assessment Comments Gait Comments Pt initiates gait with fwd & lat trunk lean. He has excessive lat leaning of trunk with gait with WB and primary use of LEs to propel himself without any trunk elevation or depression. PT-OP-J Posture/Palpation/Skin Start: 01/18/18 13:39 Freq: Status: Active Protocol: Document 01/18/18 16:07 [facility] (Rec: 01/18/18 17:48 [facility] [id number]) Posture Evaluation Margaux Postural Classification System Margaux Postural Classifications Anterior/Posterior PT-OP-K Range of Motion Start: 01/18/18 13:39 Freq: Status: Active Protocol: Document 01/18/18 16:07 [facility] (Rec: 01/18/18 16:49 [facility] [id number]) Hip Goniometric Range of Motion Hip Measured in Degrees Right Active Testing Position Supine Flexion w/Knee Flexed 95 Left Active Testing Position Supine Flexion w/Knee Flexed 113 Knee Goniometric Range of Motion Knee Measured in Degrees Right Patient Position Supine Flexion Active (degrees) 128 Extension Active (degrees) 3 Left Patient Position Supine Flexion Active (degrees) 129 Extension Active (degrees) 5 PT-OP-L Special Tests Start: 01/18/18 13:39 Freq: Status: Active Protocol: Document 01/18/18 16:07 [facility] (Rec: 01/18/18 16:49 [facility] [id number]) Special Tests Lumbar Spine Special Tests Straight Leg Raise Test Results neg B; slight tight HS with just under 90 deg L Comments about 75 deg hip flex w/ pain in post knee R & HS tightness PT-OP-M Strength Start: 01/18/18 13:39 Freq: Status: Active Protocol: Document 04/19/18 07:42 [facility] (Rec: 04/19/18 08:59 [facility] [id number]) Hip Strength Hip Manual Muscle Testing Right Flexion (L2) 5 Normal Extension (S1) 5 Normal Abduction 4 Good Adduction 5 Normal External Rotation 5 Normal Internal Rotation 5 Normal Left Flexion (L2) 5 Normal Extension (S1) 5 Normal Abduction 4 Good Adduction 4+ Good+ External Rotation 5 Normal Knee Strength Knee Manual Muscle Testing Right Flexion (S2) 5 Normal Extension (L3) 5 Normal Left Flexion (S2) 5 Normal Extension (L3) 5 Normal PT-OP-Q Treatments Start: 01/18/18 13:39 Freq: Status: Active Protocol: Document 04/28/18 10:15 [facility] (Rec: 04/28/18 10:25 [facility] [id number]) Cardio Equipment Treadmill Duration (Minutes) 7 Speed 2-2.5 Therapeutic Exercises Supine Exercises hip ER Supine Exercise Name butterfly stretch HS Supine Exercise Name HS/calf stretch Side bilateral Reps/Minutes 30sec piriformist Supine Exercise Name piriformis stretch Reps/Minutes 30 sec Standing Exercises quad/hip flexor stretch Standing Exercise Name hip flexor stretch Reps/Minutes 30 sec Manual Therapy Treatment Soft Tissue Mobilization gluteals Body Location R glutes Mobilization Type Sustained Pressure Intensity/Depth Moderate Body Position Sidelying HS Body Location HS R Mobilization Type Rolling Sustained Pressure Intensity/Depth Moderate Body Position Supine Comments w/ knee ext scar tissue Body Location ant knee Mobilization Type Myofascial Release Intensity/Depth Superficial Comments distal scar tissue lat to med PT-OP-T Assessment and Plan Start: 01/18/18 13:39 Freq: Status: Active Protocol: Document 04/28/18 10:15 [facility] (Rec: 04/28/18 10:25 [facility] [id number]) Physical Therapy Assessment Goals 3 Impairment dec mobility Short Term Goal (STG) Pt will be able to get up from a low chair without UE support. STG Duration 03/30/18-improving strength Nursing Home Goal (LTG) Pt will be able to walk 1 mile . LTG Duration 05/18/18-improving 1/2 mile 2 Impairment pain Short Term Goal (STG) Pt's pain will dec to no greater than 2/10 after short bouts of ambulation. STG Duration achieved Naval Science Teacher Goal (LTG) Pt's pain when on his knees will dec to 3/10 with knee pads. LTG Duration 05/18/18 Assessment Summary Assessment Pt required review with stretching exercises and was able to go through stretches with cueing. He did 1/4 mile on treadmill at gym and 1/4 mile at therapy. He is encouraged to ice hips as needed Physical Therapy Plan Frequency and Duration Frequency of Treatment 2x/Week Duration of Treatment 2 months Plan of Care Start Date 03/16/18 Plan of Care End Date 05/14/18 Next Visit Focus/Plan Next Note Type Treatment Note Next Visit Plan cont to advance glute/abd strength; resisted step ups
--- NOTE | 2018-05-04 09:00 | PT.OPPOC ---
Current Diagnoses Presence of right artificial knee joint (05/24/18) Provider Visit Care Team Role Provider Type Sourav Gamboa MD Primary Care Provider Non-Staff Specialty: Medical Address: [facility], [place], [address] Email: Fabrizio Grimes MD Attending Provider Physician Specialty: Orthopedic Surgery Address: [address] [place] [address], [place], [address] Email: [email or web address] Plan Of [email or web address] PT-OP-T Assessment and Plan Start: 01/18/18 13:39 Freq: Status: Active Protocol: Document 05/04/18 07:26 [facility] (Rec: 05/04/18 09:01 [facility] [id number]) Physical Therapy Assessment Goals 3 Impairment dec mobility Short Term Goal (STG) Pt will be able to get up from a low chair without UE support. STG Duration achieved Cotton Feeder Goal (LTG) Pt will be able to walk 1 mile . LTG Duration 07/18/18-improving 1/2 mile 2 Impairment pain Short Term Goal (STG) Pt's pain will dec to no greater than 2/10 after short bouts of ambulation. STG Duration achieved Cotton Feeder Goal (LTG) Pt's pain when on his knees will dec to 3/10 with knee pads. LTG Duration 06/18/18 Assessment Summary Assessment Pt is improving with strength overall, but cont to require cueing for gait mechanics. As he cont to work on mechanics, he is likely to be more efficient and be able to amb with dec pain. Physical Therapy Plan Frequency and Duration Frequency of Treatment 1x/Week Duration of Treatment 2 months Plan of Care Start Date 05/04/18 Plan of Care End Date 07/02/18 Therapeutic Interventions Therapeutic Interventions Aquatic Therapy Balance Training Gait Training Home Exercise Program Joint Mobilizations Manual Therapy Soft Tissue Mobilization Taping Therapeutic Activities Therapeutic Exercises Modalities Cold Pack/Ice Massage Electric Stimulation Hot Packs Ultrasound Next Visit Focus/Plan Next Note Type Treatment Note Next Visit Plan cont to advance glute/abd strength; resisted step ups Plan of Care Dates Plan of Care Start Date 05/04/18 Plan of Care End Date 07/02/18 Please Sign and Return: I have reviewed this Plan of Care and certify that the skilled therapy services above are required to meet the patient?s needs. Physician Signature Date Printed Name and Credentials Clinical Instructor Signature Printed Name and Credentials
--- NOTE | 2018-05-04 09:01 | PT.OTN ---
Current Diagnoses Presence of right artificial knee joint (05/04/18) Physical Therapy Treatment Note PT-OP-A Visit Information Start: 01/18/18 13:39 Freq: Status: Active Protocol: Document 05/04/18 07:26 [facility] (Rec: 05/04/18 09:01 [facility] [id number]) Out-Patient Physical Therapy Visit Information Visit Information Visit Type Progress Note Visit Note 11 visits 2018 Visit Start Time 07:25 Visit Stop Time 08:10 Total Visit Minutes 45 Visit Number 03/23 Number of BUCKET HOOKER Visits 0 PT-OP-B Current Condition Start: 01/18/18 13:39 Freq: Status: Active Protocol: Document 01/18/18 16:07 [facility] (Rec: 01/18/18 16:49 [facility] [id number]) Current Condition History of Current Condition Current Complaints B knee pain History of Current Condition Pt reports that his R knee feels very tight in the ant and lat surface distally. Pt reports L knee also gives him pain. Pain level is dependent on time of day and amount of walk, pain is between 2-4/10. Even as far as walking 100 m into a store, can create pain in knees and he has pain in B hips and it feels like he is wading through water. Reports 5 years ago he used to be able to walk 9 miles into a station, stay 9 hours then 9 miles back when he worked at the [employer]. Pt reports 6x/week he does about 40-50 min on recumbant bike without pain. Pt reports 2 laps (~.5 miles) in [employer] would make him very painful. Pt reports he wants to be able to walk as he used to be able to for exercise. Reports sit to stand is more difficult and from low chairs, he requires use of his UEs and is unable to get up/down from ground, which is difficulty for him d/ t wrist & shoulder pain. 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 Prior Treatments and Tests 1.5 yrs ago rehab for R TKA Treatment Goals Patient/Caregiver Goals Would like to be able to do a mile after PT and plans to cont PT program to improve that to infinate. PT-OP-C Subjective Start: 01/18/18 13:39 Freq: Status: Active Protocol: Document 05/04/18 07:26 [facility] (Rec: 05/04/18 09:01 [facility] [id number]) OP-PT Subjective Patient Comments Patient Comments Pt reports knees hurt when walking. Reports improved ability to get off low surfaces Patient Reported Progress Improving PT-OP-G Mobility & Gait Start: 01/18/18 13:39 Freq: Status: Active Protocol: Document 01/18/18 16:07 [facility] (Rec: 01/18/18 16:49 [facility] [id number]) OP Gait Assessment Comments Gait Comments Pt initiates gait with fwd & lat trunk lean. He has excessive lat leaning of trunk with gait with WB and primary use of LEs to propel himself without any trunk elevation or depression. PT-OP-J Posture/Palpation/Skin Start: 01/18/18 13:39 Freq: Status: Active Protocol: Document 01/18/18 16:07 [facility] (Rec: 01/18/18 17:48 [facility] [id number]) Posture Evaluation [facility] Postural Classification System [facility] Postural Classifications Anterior/Posterior PT-OP-K Range of Motion Start: 01/18/18 13:39 Freq: Status: Active Protocol: Document 01/18/18 16:07 [facility] (Rec: 01/18/18 16:49 [facility] [id number]) Hip Goniometric Range of Motion Hip Measured in Degrees Right Active Testing Position Supine Flexion w/Knee Flexed 95 Left Active Testing Position Supine Flexion w/Knee Flexed 113 Knee Goniometric Range of Motion Knee Measured in Degrees Right Patient Position Supine Flexion Active (degrees) 128 Extension Active (degrees) 3 Left Patient Position Supine Flexion Active (degrees) 129 Extension Active (degrees) 5 PT-OP-L Special Tests Start: 01/18/18 13:39 Freq: Status: Active Protocol: Document 01/18/18 16:07 [facility] (Rec: 01/18/18 16:49 [facility] [id number]) Special Tests Lumbar Spine Special Tests Straight Leg Raise Test Results neg B; slight tight HS with just under 90 deg L Comments about 75 deg hip flex w/ pain in post knee R & HS tightness PT-OP-M Strength Start: 01/18/18 13:39 Freq: Status: Active Protocol: Document 04/19/18 07:42 [facility] (Rec: 04/19/18 08:59 [facility] [id number]) Hip Strength Hip Manual Muscle Testing Right Flexion (L2) 5 Normal Extension (S1) 5 Normal Abduction 4 Good Adduction 5 Normal External Rotation 5 Normal Internal Rotation 5 Normal Left Flexion (L2) 5 Normal Extension (S1) 5 Normal Abduction 4 Good Adduction 4+ Good+ External Rotation 5 Normal Knee Strength Knee Manual Muscle Testing Right Flexion (S2) 5 Normal Extension (L3) 5 Normal Left Flexion (S2) 5 Normal Extension (L3) 5 Normal PT-OP-Q Treatments Start: 01/18/18 13:39 Freq: Status: Active Protocol: Document 05/04/18 07:26 [facility] (Rec: 05/04/18 09:01 [facility] [id number]) Cardio Equipment Treadmill Duration (Minutes) 5 Speed 2-2.5 Gait Training Gait Activity walking Description in mirror focus on posture Manual Therapy Treatment Soft Tissue Mobilization thigh Body Location circumfrential STM R thigh Mobilization Type Myofascial Release Intensity/Depth Superficial Comments into IR w/quad set scar tissue Body Location ant knee Mobilization Type Myofascial Release Intensity/Depth Superficial Comments distal scar tissue lat to med IT band Body Location ITB Mobilization Type Rolling Manual Techniques 3 plane HS Type c/r hip IR Type c/r stretch PT-OP-T Assessment and Plan Start: 01/18/18 13:39 Freq: Status: Active Protocol: Document 05/04/18 07:26 [facility] (Rec: 05/04/18 09:01 [facility] [id number]) Physical Therapy Assessment Goals 3 Impairment dec mobility Short Term Goal (STG) Pt will be able to get up from a low chair without UE support. STG Duration achieved [facility] Goal (LTG) Pt will be able to walk 1 mile . LTG Duration 07/18/18-improving 1/2 mile 2 Impairment pain Short Term Goal (STG) Pt's pain will dec to no greater than 2/10 after short bouts of ambulation. STG Duration achieved Certified Recreational Therapist Goal (LTG) Pt's pain when on his knees will dec to 3/10 with knee pads. LTG Duration 06/18/18 Assessment Summary Assessment Pt is improving with strength overall, but cont to require cueing for gait mechanics. As he cont to work on mechanics, he is likely to be more efficient and be able to amb with dec pain. Physical Therapy Plan Therapeutic Interventions Therapeutic Interventions Aquatic Therapy Balance Training Gait Training Home Exercise Program Joint Mobilizations Manual Therapy Soft Tissue Mobilization Taping Therapeutic Activities Therapeutic Exercises Modalities Cold Pack/Ice Massage Electric Stimulation Hot Packs Ultrasound Next Visit Focus/Plan Next Note Type Treatment Note Next Visit Plan cont to advance glute/abd strength; resisted step ups
--- NOTE | 2018-05-04 09:02 | PT.OPPOC ---
Current Diagnoses Presence of right artificial knee joint (05/04/18) Provider Visit Care Team Role Provider Type Sourav Gamboa MD Primary Care Provider Non-Staff Specialty: Medical Address: [facility], [place], [address] Email: Fabrizio Grimes MD Attending Provider Physician Specialty: Orthopedic Surgery Address: [address] [place] [address], [place], [address] Email: [email or web address] Plan Of Care PT-OP-T Assessment and Plan Start: 01/18/18 13:39 Freq: Status: Active Protocol: Document 05/04/18 07:26 [facility] (Rec: 05/04/18 09:01 [facility] [id number]) Physical Therapy Assessment Goals 3 Impairment dec mobility Short Term Goal (STG) Pt will be able to get up from a low chair without UE support. STG Duration achieved Chef Head Goal (LTG) Pt will be able to walk 1 mile . LTG Duration 07/18/18-improving 1/2 mile 2 Impairment pain Short Term Goal (STG) Pt's pain will dec to no greater than 2/10 after short bouts of ambulation. STG Duration achieved Chef Head Goal (LTG) Pt's pain when on his knees will dec to 3/10 with knee pads. LTG Duration 06/18/18 Assessment Summary Assessment Pt is improving with strength overall, but cont to require cueing for gait mechanics. As he cont to work on mechanics, he is likely to be more efficient and be able to amb with dec pain. Physical Therapy Plan Therapeutic Interventions Therapeutic Interventions Aquatic Therapy Balance Training Gait Training Home Exercise Program Joint Mobilizations Manual Therapy Soft Tissue Mobilization Taping Therapeutic Activities Therapeutic Exercises Modalities Cold Pack/Ice Massage Electric Stimulation Hot Packs Ultrasound Next Visit Focus/Plan Next Note Type Treatment Note Next Visit Plan cont to advance glute/abd strength; resisted step ups Plan of Care Dates Plan of Care Start Date 03/16/18 Plan of Care End Date 05/14/18 Please Sign and Return: I have reviewed this Plan of Care and certify that the skilled therapy services above are required to meet the patient?s needs. Physician Signature Date Printed Name and Credentials Clinical Instructor Signature Printed Name and Credentials
--- NOTE | 2018-05-24 09:06 | PT.OTN ---
Current Diagnoses Presence of right artificial knee joint (05/24/18) Physical Therapy Treatment Note PT-OP-A Visit Information Start: 01/18/18 13:39 Freq: Status: Active Protocol: Document 05/24/18 07:32 [facility] (Rec: 05/25/18 09:06 [facility] [id number]) Out-Patient Physical Therapy Visit Information Visit Information Visit Type Treatment Note Visit Note 12 visits 2019 Visit Start Time 07:30 Visit Stop Time 08:15 Total Visit Minutes 45 Visit Number 2/10 Number of ASSISTANT PROFESSOR OF ART Visits 0 PT-OP-B Current Condition Start: 01/18/18 13:39 Freq: Status: Active Protocol: Document 01/18/18 16:07 [facility] (Rec: 01/18/18 16:49 [facility] [id number]) Current Condition History of Current Condition Current Complaints B knee pain History of Current Condition Pt reports that his R knee feels very tight in the ant and lat surface distally. Pt reports L knee also gives him pain. Pain level is dependent on time of day and amount of walk, pain is between 2-4/10. Even as far as walking 100 m into a store, can create pain in knees and he has pain in B hips and it feels like he is wading through water. Reports 5 years ago he used to be able to walk 9 miles into a station, stay 9 hours then 9 miles back when he worked at the [employer] Pt reports 6x/week he does about 40-50 min on recumbant bike without pain. Pt reports 2 laps (~.5 miles) in [employer] would make him very painful. Pt reports he wants to be able to walk as he used to be able to for exercise. Reports sit to stand is more difficult and from low chairs, he requires use of his UEs and is unable to get up/down from ground, which is difficulty for him d/ t wrist & shoulder pain. 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 Prior Treatments and Tests 1.5 yrs ago rehab for R TKA Treatment Goals Patient/Caregiver Goals Would like to be able to do a mile after PT and plans to cont PT program to improve that to infinate. PT-OP-C Subjective Start: 01/18/18 13:39 Freq: Status: Active Protocol: Document 05/24/18 07:32 [facility] (Rec: 05/25/18 09:06 [facility] [id number]) OP-PT Subjective Patient Comments Patient Comments Pt reports he has been walking . Stairs are still difficult for him. PT-OP-G Mobility & Gait Start: 01/18/18 13:39 Freq: Status: Active Protocol: Document 01/18/18 16:07 [facility] (Rec: 01/18/18 16:49 [facility] [id number]) OP Gait Assessment Comments Gait Comments Pt initiates gait with fwd & lat trunk lean. He has excessive lat leaning of trunk with gait with WB and primary use of LEs to propel himself without any trunk elevation or depression. PT-OP-J Posture/Palpation/Skin Start: 01/18/18 13:39 Freq: Status: Active Protocol: Document 01/18/18 16:07 [facility] (Rec: 01/18/18 17:48 [facility] [id number]) Posture Evaluation [facility] Postural Classification System [facility] Postural Classifications Anterior/Posterior PT-OP-K Range of Motion Start: 01/18/18 13:39 Freq: Status: Active Protocol: Document 01/18/18 16:07 [facility] (Rec: 01/18/18 16:49 [facility] [id number]) Hip Goniometric Range of Motion Hip Measured in Degrees Right Active Testing Position Supine Flexion w/Knee Flexed 95 Left Active Testing Position Supine Flexion w/Knee Flexed 113 Knee Goniometric Range of Motion Knee Measured in Degrees Right Patient Position Supine Flexion Active (degrees) 128 Extension Active (degrees) 3 Left Patient Position Supine Flexion Active (degrees) 129 Extension Active (degrees) 5 PT-OP-L Special Tests Start: 01/18/18 13:39 Freq: Status: Active Protocol: Document 01/18/18 16:07 [facility] (Rec: 01/18/18 16:49 [facility] [id number]) Special Tests Lumbar Spine Special Tests Straight Leg Raise Test Results neg B; slight tight HS with just under 90 deg L Comments about 75 deg hip flex w/ pain in post knee R & HS tightness PT-OP-M Strength Start: 01/18/18 13:39 Freq: Status: Active Protocol: Document 05/24/18 07:32 [facility] (Rec: 05/24/18 08:59 [facility] [id number]) Hip Strength Hip Manual Muscle Testing Right Flexion (L2) 5 Normal Extension (S1) 5 Normal Abduction 4+ Good+ Adduction 5 Normal External Rotation 5 Normal Internal Rotation 5 Normal Left Flexion (L2) 5 Normal Extension (S1) 5 Normal Abduction 4 Good Adduction 5 Normal External Rotation 5 Normal Internal Rotation 5 Normal PT-OP-Q Treatments Start: 01/18/18 13:39 Freq: Status: Active Protocol: Document 05/24/18 07:32 [facility] (Rec: 05/25/18 09:06 [facility] [id number]) Gym Equipment Shuttle Balance red clips Details fwd & side WBOS & NBOS, fwd staggered stance Comments with head turns Gait Training Gait Activity stairs Description up/down 4 in then 6 in w/ cueing Manual Therapy Treatment Soft Tissue Mobilization scar tissue Body Location ant knee Mobilization Type Myofascial Release Intensity/Depth Superficial Comments distal scar tissue lat to med IT band Body Location ITB Mobilization Type Rolling PT-OP-T Assessment and Plan Start: 01/18/18 13:39 Freq: Status: Active Protocol: Document 05/24/18 07:32 [facility] (Rec: 05/25/18 09:06 [facility] [id number]) Physical Therapy Assessment Goals 3 Impairment dec mobility Short Term Goal (STG) Pt will be able to get up from a low chair without UE support. STG Duration achieved Paperboard Machine Operator Goal (LTG) Pt will be able to walk 1 mile . LTG Duration 07/18/18-improving 1/2 mile 2 Impairment pain Short Term Goal (STG) Pt's pain will dec to no greater than 2/10 after short bouts of ambulation. STG Duration achieved Retirement Goal (LTG) Pt's pain when on his knees will dec to 3/10 with knee pads. LTG Duration 06/18/18 Assessment Summary Assessment Pt required significant cueing for stairs and was able to dec pain with stairs after cueing. He cont to advance with balance but is still challenged with head turns. Physical Therapy Plan Frequency and Duration Frequency of Treatment 1x/Week Duration of Treatment 2 months Plan of Care Start Date 05/04/18 Plan of Care End Date 07/02/18 Next Visit Focus/Plan Next Note Type Treatment Note Next Visit Plan cont to advance glute/abd strength; resisted step ups
--- NOTE | 2018-05-31 08:35 | PT.OTN ---
Current Diagnoses Presence of right artificial knee joint (05/31/18) Physical Therapy Treatment Note PT-OP-A Visit Information Start: 01/18/18 13:39 Freq: Status: Active Protocol: Document 05/31/18 07:26 [facility] (Rec: 05/31/18 08:35 [facility] [id number]) Out-Patient Physical Therapy Visit Information Visit Information Visit Type Treatment Note Visit Note 13 visits 2019 Visit Start Time 07:30 Visit Stop Time 08:10 Total Visit Minutes 40 Visit Number 3/10 Number of ENERGY AND CONSERVATION TECHNICIAN Visits 0 PT-OP-B Current Condition Start: 01/18/18 13:39 Freq: Status: Active Protocol: Document 01/18/18 16:07 [facility] (Rec: 01/18/18 16:49 [facility] [id number]) Current Condition History of Current Condition Current Complaints B knee pain History of Current Condition Pt reports that his R knee feels very tight in the ant and lat surface distally. Pt reports L knee also gives him pain. Pain level is dependent on time of day and amount of walk, pain is between 2-4/10. Even as far as walking 100 m into a store, can create pain in knees and he has pain in B hips and it feels like he is wading through water. Reports 5 years ago he used to be able to walk 9 miles into a station, stay 9 hours then 9 miles back when he worked at the [employer]. Pt reports 6x/week he does about 40-50 min on recumbant bike without pain. Pt reports 2 laps (~.5 miles) in [employer] would make him very painful. Pt reports he wants to be able to walk as he used to be able to for exercise. Reports sit to stand is more difficult and from low chairs, he requires use of his UEs and is unable to get up/down from ground, which is difficulty for him d/ t wrist & shoulder pain. 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 Prior Treatments and Tests 1.5 yrs ago rehab for R TKA Treatment Goals Patient/Caregiver Goals Would like to be able to do a mile after PT and plans to cont PT program to improve that to infinate. PT-OP-C Subjective Start: 01/18/18 13:39 Freq: Status: Active Protocol: Document 05/31/18 07:26 [facility] (Rec: 05/31/18 08:35 [facility] [id number]) OP-PT Subjective Patient Comments Patient Comments Pt reports he did a mile walk with a lot of breaks. PT-OP-G Mobility & Gait Start: 01/18/18 13:39 Freq: Status: Active Protocol: Document 01/18/18 16:07 [facility] (Rec: 01/18/18 16:49 [facility] [id number]) OP Gait Assessment Comments Gait Comments Pt initiates gait with fwd & lat trunk lean. He has excessive lat leaning of trunk with gait with WB and primary use of LEs to propel himself without any trunk elevation or depression. PT-OP-J Posture/Palpation/Skin Start: 01/18/18 13:39 Freq: Status: Active Protocol: Document 01/18/18 16:07 [facility] (Rec: 01/18/18 17:48 [facility] [id number]) Posture Evaluation [facility] Postural Classification System [facility] Postural Classifications Anterior/Posterior PT-OP-K Range of Motion Start: 01/18/18 13:39 Freq: Status: Active Protocol: Document 01/18/18 16:07 [facility] (Rec: 01/18/18 16:49 [facility] [id number]) Hip Goniometric Range of Motion Hip Measured in Degrees Right Active Testing Position Supine Flexion w/Knee Flexed 95 Left Active Testing Position Supine Flexion w/Knee Flexed 113 Knee Goniometric Range of Motion Knee Measured in Degrees Right Patient Position Supine Flexion Active (degrees) 128 Extension Active (degrees) 3 Left Patient Position Supine Flexion Active (degrees) 129 Extension Active (degrees) 5 PT-OP-L Special Tests Start: 01/18/18 13:39 Freq: Status: Active Protocol: Document 01/18/18 16:07 [facility] (Rec: 01/18/18 16:49 [facility] [id number]) Special Tests Lumbar Spine Special Tests Straight Leg Raise Test Results neg B; slight tight HS with just under 90 deg L Comments about 75 deg hip flex w/ pain in post knee R & HS tightness PT-OP-M Strength Start: 01/18/18 13:39 Freq: Status: Active Protocol: Document 05/24/18 07:32 [facility] (Rec: 05/24/18 08:59 [facility] [id number]) Hip Strength Hip Manual Muscle Testing Right Flexion (L2) 5 Normal Extension (S1) 5 Normal Abduction 4+ Good+ Adduction 5 Normal External Rotation 5 Normal Internal Rotation 5 Normal Left Flexion (L2) 5 Normal Extension (S1) 5 Normal Abduction 4 Good Adduction 5 Normal External Rotation 5 Normal Internal Rotation 5 Normal PT-OP-Q Treatments Start: 01/18/18 13:39 Freq: Status: Active Protocol: Document 05/31/18 07:26 [facility] (Rec: 05/31/18 08:35 [facility] [id number]) Gym Equipment Shuttle Balance red clips Details fwd & side WBOS & NBOS, fwd staggered stance Comments with EC Sport Cord step ups Exercise Details red cord fwd Comments progressed to step up w/may Gait Training Gait Activity walking Description in mirror focus on posture Manual Therapy Treatment Soft Tissue Mobilization thigh Body Location circumfrential STM L thigh Mobilization Type Myofascial Release Intensity/Depth Superficial Comments into IR w/quad set IT band Body Location ITB Mobilization Type Rolling Comments L PT-OP-T Assessment and Plan Start: 01/18/18 13:39 Freq: Status: Active Protocol: Document 05/31/18 07:26 [facility] (Rec: 05/31/18 08:35 [facility] [id number]) Physical Therapy Assessment Goals 3 Impairment dec mobility Short Term Goal (STG) Pt will be able to get up from a low chair without UE support. STG Duration achieved Mcfp Goal (LTG) Pt will be able to walk 1 mile . LTG Duration 07/18/18-improving 1/2 mile 2 Impairment pain Short Term Goal (STG) Pt's pain will dec to no greater than 2/10 after short bouts of ambulation. STG Duration achieved Mcfp Goal (LTG) Pt's pain when on his knees will dec to 3/10 with knee pads. LTG Duration 06/18/18 Assessment Summary Assessment Pt able to do balance board with EC with some difficulty faced to the side. He cont to improve gait pattern w/ cueing for posture. Physical Therapy Plan Frequency and Duration Frequency of Treatment 1x/Week Duration of Treatment 2 months Plan of Care Start Date 05/04/18 Plan of Care End Date 07/02/18 Next Visit Focus/Plan Next Note Type Treatment Note Next Visit Plan Try resisted side step up
--- NOTE | 2018-06-07 08:29 | PT.OTN ---
Current Diagnoses Presence of right artificial knee joint (06/07/18) Physical Therapy Treatment Note PT-OP-A Visit Information Start: 01/18/18 13:39 Freq: Status: Active Protocol: Document 06/07/18 07:28 [facility] (Rec: 06/07/18 08:28 [facility] [id number]) Out-Patient Physical Therapy Visit Information Visit Information Visit Type Treatment Note Visit Note 14 visits 2019 Visit Start Time 07:30 Visit Stop Time 08:15 Total Visit Minutes 45 Visit Number 4/10 Number of BOAT CAMP OPERATOR Visits 0 PT-OP-B Current Condition Start: 01/18/18 13:39 Freq: Status: Active Protocol: Document 01/18/18 16:07 [facility] (Rec: 01/18/18 16:49 [facility] [id number]) Current Condition History of Current Condition Current Complaints B knee pain History of Current Condition Pt reports that his R knee feels very tight in the ant and lat surface distally. Pt reports L knee also gives him pain. Pain level is dependent on time of day and amount of walk, pain is between 2-4/10. Even as far as walking 100 m into a store, can create pain in knees and he has pain in B hips and it feels like he is wading through water. Reports 5 years ago he used to be able to walk 9 miles into a station, stay 9 hours then 9 miles back when he worked at the [employer]. Pt reports 6x/week he does about 40-50 min on recumbant bike without pain. Pt reports 2 laps (~.5 miles) in [employer] would make him very painful. Pt reports he wants to be able to walk as he used to be able to for exercise. Reports sit to stand is more difficult and from low chairs, he requires use of his UEs and is unable to get up/down from ground, which is difficulty for him d/ t wrist & shoulder pain. 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 Prior Treatments and Tests 1.5 yrs ago rehab for R TKA Treatment Goals Patient/Caregiver Goals Would like to be able to do a mile after PT and plans to cont PT program to improve that to infinate. PT-OP-C Subjective Start: 01/18/18 13:39 Freq: Status: Active Protocol: Document 06/07/18 07:28 [facility] (Rec: 06/07/18 08:28 [facility] [id number]) OP-PT Subjective Patient Comments Patient Comments Reports he has done some flat 1/2 mile walks in his hiking boots that have not hurt at [place] but he tried to walk by the house in his sneakers and had pain. PT-OP-G Mobility & Gait Start: 01/18/18 13:39 Freq: Status: Active Protocol: Document 01/18/18 16:07 [facility] (Rec: 01/18/18 16:49 [facility] [id number]) OP Gait Assessment Comments Gait Comments Pt initiates gait with fwd & lat trunk lean. He has excessive lat leaning of trunk with gait with WB and primary use of LEs to propel himself without any trunk elevation or depression. PT-OP-J Posture/Palpation/Skin Start: 01/18/18 13:39 Freq: Status: Active Protocol: Document 01/18/18 16:07 [facility] (Rec: 01/18/18 17:48 [facility] [id number]) Posture Evaluation Margaux Postural Classification System Margaux Postural Classifications Anterior/Posterior PT-OP-K Range of Motion Start: 01/18/18 13:39 Freq: Status: Active Protocol: Document 01/18/18 16:07 [facility] (Rec: 01/18/18 16:49 [facility] [id number]) Hip Goniometric Range of Motion Hip Measured in Degrees Right Active Testing Position Supine Flexion w/Knee Flexed 95 Left Active Testing Position Supine Flexion w/Knee Flexed 113 Knee Goniometric Range of Motion Knee Measured in Degrees Right Patient Position Supine Flexion Active (degrees) 128 Extension Active (degrees) 3 Left Patient Position Supine Flexion Active (degrees) 129 Extension Active (degrees) 5 PT-OP-L Special Tests Start: 01/18/18 13:39 Freq: Status: Active Protocol: Document 01/18/18 16:07 [facility] (Rec: 01/18/18 16:49 [facility] [id number]) Special Tests Lumbar Spine Special Tests Straight Leg Raise Test Results neg B; slight tight HS with just under 90 deg L Comments about 75 deg hip flex w/ pain in post knee R & HS tightness PT-OP-M Strength Start: 01/18/18 13:39 Freq: Status: Active Protocol: Document 05/24/18 07:32 [facility] (Rec: 05/24/18 08:59 [facility] [id number]) Hip Strength Hip Manual Muscle Testing Right Flexion (L2) 5 Normal Extension (S1) 5 Normal Abduction 4+ Good+ Adduction 5 Normal External Rotation 5 Normal Internal Rotation 5 Normal Left Flexion (L2) 5 Normal Extension (S1) 5 Normal Abduction 4 Good Adduction 5 Normal External Rotation 5 Normal Internal Rotation 5 Normal PT-OP-Q Treatments Start: 01/18/18 13:39 Freq: Status: Active Protocol: Document 06/07/18 07:28 [facility] (Rec: 06/07/18 08:28 [facility] [id number]) Gym Equipment Shuttle Balance red clips Details fwd & side WBOS & NBOS, fwd staggered stance Comments with EC Sport Cord step ups Exercise Details red cord fwd & side Therapeutic Exercises Supine Exercises hip ER Supine Exercise Name butterfly stretch & figure 4 Comments then lift of leg in figure 4 position HS Supine Exercise Name HS & add stretch seated on bed Side bilateral Reps/Minutes 30 sec Manual Therapy Treatment Soft Tissue Mobilization IT band Body Location ITB Mobilization Type Rolling Comments L PT-OP-T Assessment and Plan Start: 01/18/18 13:39 Freq: Status: Active Protocol: Document 06/07/18 07:28 [facility] (Rec: 06/07/18 08:28 [facility] [id number]) Physical Therapy Assessment Goals 3 Impairment dec mobility Short Term Goal (STG) Pt will be able to get up from a low chair without UE support. STG Duration achieved Bone Grinder Goal (LTG) Pt will be able to walk 1 mile . LTG Duration 07/18/18-improving 1/2 mile 2 Impairment pain Short Term Goal (STG) Pt's pain will dec to no greater than 2/10 after short bouts of ambulation. STG Duration achieved Bone Grinder Goal (LTG) Pt's pain when on his knees will dec to 3/10 with knee pads. LTG Duration 06/18/18 Assessment Summary Assessment Pt was challenged by step ups sideways. Improved balance on balance board today. Cont to lack in flexibility and with full range strength. Physical Therapy Plan Frequency and Duration Frequency of Treatment 1x/Week Duration of Treatment 2 months Plan of Care Start Date 05/04/18 Plan of Care End Date 07/02/18 Next Visit Focus/Plan Next Note Type Treatment Note Next Visit Plan Cont to advance abductor strength
--- NOTE | 2018-06-21 09:30 | PT.OTN ---
Current Diagnoses Presence of right artificial knee joint (06/21/18) Physical Therapy Treatment Note PT-OP-A Visit Information Start: 01/18/18 13:39 Freq: Status: Active Protocol: Document 06/21/18 09:21 [facility] (Rec: 06/21/18 09:30 [facility] [id number]) Out-Patient Physical Therapy Visit Information Visit Information Visit Type Treatment Note Visit Note 15 visits 2018 Visit Start Time 08:22 Visit Stop Time 09:02 Total Visit Minutes 40 Visit Number 5/10 Number of FLATWORK FEEDER Visits 0 PT-OP-B Current Condition Start: 01/18/18 13:39 Freq: Status: Active Protocol: Document 01/18/18 16:07 [facility] (Rec: 01/18/18 16:49 [facility] [id number]) Current Condition History of Current Condition Current Complaints B knee pain History of Current Condition Pt reports that his R knee feels very tight in the ant and lat surface distally. Pt reports L knee also gives him pain. Pain level is dependent on time of day and amount of walk, pain is between 2-4/10. Even as far as walking 100 m into a store, can create pain in knees and he has pain in B hips and it feels like he is wading through water. Reports 5 years ago he used to be able to walk 9 miles into a station, stay 9 hours then 9 miles back when he worked at the [employer]. Pt reports 6x/week he does about 40-50 min on recumbant bike without pain. Pt reports 2 laps (~.5 miles) in [employer] would make him very painful. Pt reports he wants to be able to walk as he used to be able to for exercise. Reports sit to stand is more difficult and from low chairs, he requires use of his UEs and is unable to get up/down from ground, which is difficulty for him d/ t wrist & shoulder pain. 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 Prior Treatments and Tests 1.5 yrs ago rehab for R TKA Treatment Goals Patient/Caregiver Goals Would like to be able to do a mile after PT and plans to cont PT program to improve that to infinate. PT-OP-C Subjective Start: 01/18/18 13:39 Freq: Status: Active Protocol: Document 06/21/18 09:21 [facility] (Rec: 06/21/18 09:30 [facility] [id number]) OP-PT Subjective Patient Comments Patient Comments Pt reports doing some walking in his sneakers. Reports his glutes are sore. PT-OP-G Mobility & Gait Start: 01/18/18 13:39 Freq: Status: Active Protocol: Document 01/18/18 16:07 [facility] (Rec: 01/18/18 16:49 [facility] [id number]) OP Gait Assessment Comments Gait Comments Pt initiates gait with fwd & lat trunk lean. He has excessive lat leaning of trunk with gait with WB and primary use of LEs to propel himself without any trunk elevation or depression. PT-OP-J Posture/Palpation/Skin Start: 01/18/18 13:39 Freq: Status: Active Protocol: Document 01/18/18 16:07 [facility] (Rec: 01/18/18 17:48 [facility] [id number]) Posture Evaluation [facility] Postural Classification System Margaux Postural Classifications Anterior/Posterior PT-OP-K Range of Motion Start: 01/18/18 13:39 Freq: Status: Active Protocol: Document 01/18/18 16:07 [facility] (Rec: 01/18/18 16:49 [facility] [id number]) Hip Goniometric Range of Motion Hip Measured in Degrees Right Active Testing Position Supine Flexion w/Knee Flexed 95 Left Active Testing Position Supine Flexion w/Knee Flexed 113 Knee Goniometric Range of Motion Knee Measured in Degrees Right Patient Position Supine Flexion Active (degrees) 128 Extension Active (degrees) 3 Left Patient Position Supine Flexion Active (degrees) 129 Extension Active (degrees) 5 PT-OP-L Special Tests Start: 01/18/18 13:39 Freq: Status: Active Protocol: Document 01/18/18 16:07 [facility] (Rec: 01/18/18 16:49 [facility] [id number]) Special Tests Lumbar Spine Special Tests Straight Leg Raise Test Results neg B; slight tight HS with just under 90 deg L Comments about 75 deg hip flex w/ pain in post knee R & HS tightness PT-OP-M Strength Start: 01/18/18 13:39 Freq: Status: Active Protocol: Document 05/24/18 07:32 [facility] (Rec: 05/24/18 08:59 [facility] [id number]) Hip Strength Hip Manual Muscle Testing Right Flexion (L2) 5 Normal Extension (S1) 5 Normal Abduction 4+ Good+ Adduction 5 Normal External Rotation 5 Normal Internal Rotation 5 Normal Left Flexion (L2) 5 Normal Extension (S1) 5 Normal Abduction 4 Good Adduction 5 Normal External Rotation 5 Normal Internal Rotation 5 Normal PT-OP-Q Treatments Start: 01/18/18 13:39 Freq: Status: Active Protocol: Document 06/21/18 09:21 [facility] (Rec: 06/21/18 09:30 [facility] [id number]) Gait Training Gait Activity step ups Description on bosu Comments rail only as needed x5 ea walking Description focus on posture & rolling over feet Manual Therapy Treatment Soft Tissue Mobilization scar tissue Body Location ant knee Mobilization Type Myofascial Release Intensity/Depth Superficial Comments distal scar tissue lat to med IT band Body Location ITB Mobilization Type Rolling Comments R PT-OP-T Assessment and Plan Start: 01/18/18 13:39 Freq: Status: Active Protocol: Document 06/21/18 09:21 [facility] (Rec: 06/21/18 09:30 [facility] [id number]) Physical Therapy Assessment Goals 3 Impairment dec mobility Short Term Goal (STG) Pt will be able to get up from a low chair without UE support. STG Duration achieved Claims Sorter Goal (LTG) Pt will be able to walk 1 mile . LTG Duration 07/18/18-improving 1/2 mile 2 Impairment pain Short Term Goal (STG) Pt's pain will dec to no greater than 2/10 after short bouts of ambulation. STG Duration achieved Skilled Nursing Goal (LTG) Pt's pain when on his knees will dec to 3/10 with knee pads. LTG Duration 06/18/18 Assessment Summary Assessment Pt had improved gait pattern with working on posture & rolling through to push off. Pt improving with medial soft tissue mobility of knee. Physical Therapy Plan Frequency and Duration Frequency of Treatment 1x/Week Duration of Treatment 2 months Plan of Care Start Date 05/04/18 Plan of Care End Date 07/02/18 Next Visit Focus/Plan Next Note Type Treatment Note Next Visit Plan Cont to advance abductor strength & overall strength through ROM
--- NOTE | 2018-07-06 10:47 | PT.OTN ---
Current Diagnoses Presence of right artificial knee joint (07/06/18) Physical Therapy Treatment Note PT-OP-A Visit Information Start: 01/18/18 13:39 Freq: Status: Active Protocol: Document 07/06/18 07:30 [facility] (Rec: 07/06/18 10:30 [facility] [id number]) Out-Patient Physical Therapy Visit Information Visit Information Visit Type Discharge Summary Visit Note 14 visits 2019 Visit Start Time 07:30 Visit Stop Time 08:15 Total Visit Minutes 45 Visit Number 6/ Number of BACK END WEB DEVELOPER Visits 0 PT-OP-B Current Condition Start: 01/18/18 13:39 Freq: Status: Active Protocol: Document 01/18/18 16:07 [facility] (Rec: 01/18/18 16:49 [facility] [id number]) Current Condition History of Current Condition Current Complaints B knee pain History of Current Condition Pt reports that his R knee feels very tight in the ant and lat surface distally. Pt reports L knee also gives him pain. Pain level is dependent on time of day and amount of walk, pain is between 2-4/10. Even as far as walking 100 m into a store, can create pain in knees and he has pain in B hips and it feels like he is wading through water. Reports 5 years ago he used to be able to walk 9 miles into a station, stay 9 hours then 9 miles back when he worked at the [employer]. Pt reports 6x/week he does about 40-50 min on recumbant bike without pain. Pt reports 2 laps (~.5 miles) in [employer] would make him very painful. Pt reports he wants to be able to walk as he used to be able to for exercise. Reports sit to stand is more difficult and from low chairs, he requires use of his UEs and is unable to get up/down from ground, which is difficulty for him d/ t wrist & shoulder pain. 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 Prior Treatments and Tests 1.5 yrs ago rehab for R TKA Treatment Goals Patient/Caregiver Goals Would like to be able to do a mile after PT and plans to cont PT program to improve that to infinate. PT-OP-C Subjective Start: 01/18/18 13:39 Freq: Status: Active Protocol: Document 07/06/18 07:30 [facility] (Rec: 07/06/18 10:30 [facility] [id number]) OP-PT Subjective Patient Comments Patient Comments Pt reports he has done mult walks. PT-OP-G Mobility & Gait Start: 01/18/18 13:39 Freq: Status: Active Protocol: Document 01/18/18 16:07 [facility] (Rec: 01/18/18 16:49 [facility] [id number]) OP Gait Assessment Comments Gait Comments Pt initiates gait with fwd & lat trunk lean. He has excessive lat leaning of trunk with gait with WB and primary use of LEs to propel himself without any trunk elevation or depression. PT-OP-J Posture/Palpation/Skin Start: 01/18/18 13:39 Freq: Status: Active Protocol: Document 01/18/18 16:07 [facility] (Rec: 01/18/18 17:48 [facility] [id number]) Posture Evaluation [facility] Postural Classification System [facility] Postural Classifications Anterior/Posterior PT-OP-K Range of Motion Start: 01/18/18 13:39 Freq: Status: Active Protocol: Document 01/18/18 16:07 [facility] (Rec: 01/18/18 16:49 [facility] [id number]) Hip Goniometric Range of Motion Hip Measured in Degrees Right Active Testing Position Supine Flexion w/Knee Flexed 95 Left Active Testing Position Supine Flexion w/Knee Flexed 113 Knee Goniometric Range of Motion Knee Measured in Degrees Right Patient Position Supine Flexion Active (degrees) 128 Extension Active (degrees) 3 Left Patient Position Supine Flexion Active (degrees) 129 Extension Active (degrees) 5 PT-OP-L Special Tests Start: 01/18/18 13:39 Freq: Status: Active Protocol: Document 01/18/18 16:07 [facility] (Rec: 01/18/18 16:49 [facility] [id number]) Special Tests Lumbar Spine Special Tests Straight Leg Raise Test Results neg B; slight tight HS with just under 90 deg L Comments about 75 deg hip flex w/ pain in post knee R & HS tightness PT-OP-M Strength Start: 01/18/18 13:39 Freq: Status: Active Protocol: Document 07/06/18 07:30 [facility] (Rec: 07/06/18 10:30 [facility] [id number]) Hip Strength Hip Manual Muscle Testing Right Flexion (L2) 5 Normal Abduction 4+ Good+ External Rotation 5 Normal Internal Rotation 5 Normal Left Flexion (L2) 5 Normal Abduction 4 Good External Rotation 5 Normal Internal Rotation 5 Normal PT-OP-Q Treatments Start: 01/18/18 13:39 Freq: Status: Active Protocol: Document 07/06/18 07:30 [facility] (Rec: 07/06/18 10:30 [facility] [id number]) Cardio Equipment Treadmill Duration (Minutes) 5 Speed 1.5 Therapeutic Exercises Standing Exercises tandem stance Standing Exercise Name tandem stance Side bilateral lunge Standing Exercise Name onto bosu side stepping Standing Exercise Name w/squat Side bilateral Equipment Used lvl 3 Reps/Minutes 20ft SLS in mirror Standing Exercise Name SLS Side bilateral Manual Therapy Treatment Soft Tissue Mobilization scar tissue Body Location ant knee Mobilization Type Myofascial Release Intensity/Depth Superficial Comments distal scar tissue lat to med PT-OP-T Assessment and Plan Start: 01/18/18 13:39 Freq: Status: Active Protocol: Document 07/06/18 07:30 [facility] (Rec: 07/06/18 10:30 [facility] [id number]) Physical Therapy Assessment Goals 3 Impairment dec mobility Short Term Goal (STG) Pt will be able to get up from a low chair without UE support. STG Duration achieved Supervisor Fish Processing Goal (LTG) Pt will be able to walk 1 mile . LTG Duration 07/18/18-improving 1/2 mile 2 Impairment pain Short Term Goal (STG) Pt's pain will dec to no greater than 2/10 after short bouts of ambulation. STG Duration achieved Supervisor Fish Processing Goal (LTG) Pt's pain when on his knees will dec to 3/10 with knee pads. LTG Duration 06/18/18 Assessment Summary Assessment Pt is improving with his gait pattern with concious effort. He has some improvement in abd strength but is plateauing at this time. he is to cont his HEP at home and walking program Physical Therapy Plan Frequency and Duration Frequency of Treatment 1x Plan of Care Start Date 07/06/18 Plan of Care End Date 07/06/18 Discharge Physical Therapy Discharge Reasons Plateau in Progress
--- NOTE | 2018-07-06 10:47 | PT.OPPOC ---
Current Diagnoses Presence of right artificial knee joint (07/06/18) Provider Visit Care Team Role Provider Type Sourav Gamboa MD Primary Care Provider Non-Staff Specialty: Medical Address: [address], [place], [address] Email: Fabrizio Grimes MD Attending Provider Physician Specialty: Orthopedic Surgery Address: [address] [place] [address], [place], [address] Email: [email or web address] Plan Of Care PT-OP-T Assessment and Plan Start: 01/18/18 13:39 Freq: Status: Active Protocol: Document 07/06/18 07:30 [facility] (Rec: 07/06/18 10:30 [facility] [id number]) Physical Therapy Assessment Goals 3 Impairment dec mobility Short Term Goal (STG) Pt will be able to get up from a low chair without UE support. STG Duration achieved Professional Skateboarder Goal (LTG) Pt will be able to walk 1 mile . LTG Duration 07/18/18-improving 1/2 mile 2 Impairment pain Short Term Goal (STG) Pt's pain will dec to no greater than 2/10 after short bouts of ambulation. STG Duration achieved Professional Skateboarder Goal (LTG) Pt's pain when on his knees will dec to 3/10 with knee pads. LTG Duration 06/18/18 Assessment Summary Assessment Pt is improving with his gait pattern with concious effort. He has some improvement in abd strength but is plateauing at this time. he is to cont his HEP at home and walking program Physical Therapy Plan Frequency and Duration Frequency of Treatment 1x Plan of Care Start Date 07/06/18 Plan of Care End Date 07/06/18 Discharge Physical Therapy Discharge Reasons Plateau in Progress Plan of Care Dates Plan of Care Start Date 07/06/18 Plan of Care End Date 07/06/18 Please Sign and Return: I have reviewed this Plan of Care and certify that the skilled therapy services above are required to meet the patient?s needs. Physician Signature Date Printed Name and Credentials Clinical Instructor Signature Printed Name and Credentials
== END 2018-07-25 16:00 ==
LOC: PHYS 07:30
PROVIDERS: PCP Family Medicine; Visit Provider Orthopaedic Surgery
DX: Z96.651 Presence of right artificial knee joint (principal)
CPT/HCPCS: 97110; 97112; 97116; 97140; 97162; 97530

== ENCOUNTER 2019-01-29 09:45 | Outpatient (RCR) | payer MEDICARE, BC, SELFPAY ==
--- NOTE | 2018-10-19 17:55 | PT.OIE ---
Current Diagnoses Strain of muscle, fascia and tendon of right hip, initial encounter (10/19/18) Past Medical History (Last Updated 01/18/18 @ 16:26 by Denia Low, PT) Fusion of lumbar spine (Acute) Osteoarthritis (Acute) Painful total knee replacement, right (Acute) Past Surgical History (Last Updated 01/18/18 @ 16:20 by Denia Low, PT) History of total replacement of right shoulder joint (Acute) S/p reverse total shoulder arthroplasty (Acute) Provider Visit Care Team Role Provider Type Sourav Gamboa MD Family Provider Non-Staff Primary Care Provider Specialty: Medical Address: [address] [place] [address], [id number] Email: Papa Bronson MD Attending Provider Physician Specialty: Orthopedic Surgery Address: [address] [place] [address], [id number] Email: [email or web address] Initial Evaluation PT-OP-A Visit Information Start: 10/18/18 18:11 Freq: Status: Active Protocol: Document 10/19/18 16:32 AR (Rec: 10/19/18 17:10 AR [email or web address]) Out-Patient Physical Therapy Visit Information Visit Information Visit Type Initial Evaluation Visit Start Time 15:20 Visit Stop Time 16:25 Total Visit Minutes 65 Visit Number 1 Number of SUPERVISOR DECORATING Visits 0 PT-OP-B Current Condition Start: 10/18/18 18:11 Freq: Status: Active Protocol: Document 10/19/18 16:32 AR (Rec: 10/19/18 17:10 AR [email or web address]) Current Condition History of Current Condition Onset Date 09/25/2018 Current Complaints R groin pain, inc in R knee pain, decreased ROM, impaired balance History of Current Condition Pt fell off roof about 3 weeks ago. He did not go to urgent care until a couple weeks after the incident. Recent imaging shows no fracture or hip OA. Pt reports he has had an increase in pain in his R knee since the fall (hx of TKA , pain prior to fall). He is having pain with walking, mostly in his knee. He is unable to step into a car w/o significant pain and he was previously unable to step into truck. He was able to get into his truck today but had significant pain. Pt reports posterior hip pain while walking which eases with stretching into a small squat range. Pt also reports inc pain in posterior hip with extended sitting. Treatment Goals Patient/Caregiver Goals Increase ROM of RLE to WNL or at least equal to other side. Be able to get into and out of car w/o pain. Prior Functional Status Baseline Function- ADL's Independent Baseline Function- Mobility Independent Personal Factors Other Personal Factors That May Effect previous joint surgeries (L Therapy/Recovery shoulder x2, R shoulder, R TKA ) PT-OP-C Subjective Start: 10/18/18 18:11 Freq: Status: Active Protocol: Document 10/19/18 16:32 AR (Rec: 10/19/18 17:10 AR [email or web address]) OP-PT Subjective Patient Comments Patient Comments Pt reports he is having knee pain that is limiting walking. He is unable to step into car and truck w/o significant pain. He is unable to step up a 6 [address] when leading with his R leg. Patient Reported Progress Worse Patient Questionnaires Lower Extremity Functional Scale LEFS Score 41/80 LEFS Impairment 40 to 59% Impaired (Score 32- 47) OP-PT Pain Assessment Location R hip Pain Location Details R anterior hip, during active hip flexion Intensity 10 Scale Used Numeric (1 - 10) PT-OP-E Functional Tests Start: 10/18/18 18:11 Freq: Status: Active Protocol: Document 10/19/18 16:32 AR (Rec: 10/19/18 17:10 AR [email or web address]) Functional Tests Functional Gait Assessment Score 22/30 Functional Gait Assessment Impairment 20 to <40% Impaired (Score 19- Rating 24) PT-OP-F Manual Assessment Start: 10/18/18 18:11 Freq: Status: Active Protocol: Document 10/19/18 16:32 AR (Rec: 10/19/18 17:10 AR [email or web address]) Manual Assessments Joint Mobility Assessment Joint Mobility Assessment R hip IR and ER: hard end feel with limited ROM PT-OP-G Mobility & Gait Start: 10/18/18 18:11 Freq: Status: Active Protocol: Document 10/19/18 16:32 AR (Rec: 10/19/18 17:10 AR [email or web address]) OP Mobility Evaluation Bed Mobility Rolling pt able to perform independently, but takes significant effort and time to perform Supine to and from Sit pt able to perform independently, but takes significant effort and time to perform Functional Movements Squats demonstrated proper form within small ROM OP Gait Assessment Gait Gait Assistance Required: Independent Gait Deviations General Gait Pattern Antalgic Lateral Trunk Lean Factors Limiting Gait Function Factors Limiting Gait Function Limited Range of Motion Pain Stair Climbing Evaluation Evaluation Level of Assist On Stairs Standby Assistance Devices Stair Climbing Assistive Devices Left Railing Right Railing Technique/Endurance Stair Climbing Direction Ascend and Descend Stair Climbing Technique Step Over Step Number of Steps Climbed 4 Stair Climbing Set # Repetitions (reps) 2 PT-OP-K Range of Motion Start: 10/18/18 18:11 Freq: Status: Active Protocol: Document 10/19/18 16:32 AR (Rec: 10/19/18 17:10 AR [email or web address]) Hip Goniometric Range of Motion Hip Right Active Hip ROM WFL No Testing Position supine (flex), seated (IR/ER) Flexion w/Knee Flexed 70 Internal Rotation 10 External Rotation 33 Left Active Hip ROM WFL No Flexion w/Knee Flexed 110 Internal Rotation 15 External Rotation 25 Knee Goniometric Range of Motion Knee Right Flexion Active (degrees) 120 Left Flexion Active (degrees) 135 PT-OP-M Strength Start: 10/18/18 18:11 Freq: Status: Active Protocol: Document 10/19/18 16:32 AR (Rec: 10/19/18 17:10 AR [email or web address]) Hip Strength Hip Manual Muscle Testing Right Flexion (L2) 2- Poor- Extension (S1) 2 Poor Abduction 4- Good- External Rotation 4+ Good+ Internal Rotation 4+ Good+ Left Flexion (L2) 4 Good Extension (S1) 2+ Poor+ Abduction 4+ Good+ External Rotation 4+ Good+ Internal Rotation 4+ Good+ Knee Strength Knee Manual Muscle Testing Left Flexion (S2) 5 Normal Extension (L3) 5 Normal Right Flexion (S2) 5 Normal Extension (L3) 5 Normal PT-OP-Q Treatments Start: 10/18/18 18:11 Freq: Status: Active Protocol: Document 10/19/18 16:32 AR (Rec: 10/19/18 17:10 AR [email or web address]) Therapeutic Exercises Sidelying Exercises Quad Stretch Sidelying Exercise Name quad/hip flexor stretch Side right Reps/Minutes 30 sec hold Comments pt felt stretch w/o pulling foot toward buttock Standing Exercises squats Standing Exercise Name squats near chair Reps/Minutes 10 reps Comments pt demonstrated good form PT-OP-T Assessment and Plan Start: 10/18/18 18:11 Freq: Status: Active Protocol: Document 10/19/18 16:32 AR (Rec: 10/19/18 17:10 AR [email or web address]) Physical Therapy Assessment Goals Walking Short Term Goal (STG) Pt will be able to walk at least 1/4 mile w/o AD, seated rest break or inc in pain no more than 2 points on VAS. STG Duration 11/19/2018 Stock Blender Goal (LTG) Pt will be able to walk 1 mile w/o AD, seated rest break or inc in pain no more than 2 point on VAS. LTG Duration 12/19/2018 3 Impairment weakness Short Term Goal (STG) Pt will be compliant with HEP STG Duration 11/19/2018 Stock Blender Goal (LTG) Pt will demonstrate 5/5 MMT strength to be able to accomplish daily activities. LTG Duration 12/19/2018 2 Impairment pain Short Term Goal (STG) Pt will be able to step onto a [address] w/o pain in R hip or knee. STG Duration 11/19/2018 Snf Goal (LTG) Pt will be able to step into pickup truck w/o pain in R hip . LTG Duration 12/19/2018 1 Impairment decreased dynamic balance Stock Blender Goal (LTG) Pt will inc DGI by at least 2 points to dec fall risk Assessment Summary Assessment Pt presents with s/s of R hip flexor strain after falling off roof. Pt has decrease strength and mobility of R hip . Pt's hip and knee pain, weakness into hip flexion and decreased hip extension ROM all contribute to pt's gait impairments. Pt also shows impairments in balance and dec core stability (noted during LE MMTs). Pt is at a high fall risk given FGA score of 22/30 . Pt will benefit from skilled PT to focus on balance, gait, and strength training to address functional impairments and fall risk. Physical Therapy Plan Frequency and Duration Frequency of Treatment 1-2x/wk Duration of Treatment 2 months Plan of Care Start Date 10/19/18 Plan of Care End Date 12/19/18 Therapeutic Interventions Therapeutic Interventions Aquatic Therapy Balance Training Coordination Training Gait Training Home Exercise Program Joint Mobilizations Manual Therapy Neuromuscular Re-education Patient/Caregiver Education Self-Care/Home Management Soft Tissue Mobilization Taping Therapeutic Activities Therapeutic Exercises Modalities Cold Pack/Ice Massage Electric Stimulation Hot Packs Traction- Mechanical Next Visit Focus/Plan Next Note Type Treatment Note Next Visit Plan review HEP, progress glut and core exercises. incorporate balance training
--- NOTE | 2018-10-19 17:55 | PT.OPPOC ---
Current Diagnoses Strain of muscle, fascia and tendon of right hip, initial encounter (10/19/18) Provider Visit Care Team Role Provider Type Sourav Gamboa MD Family Provider Non-Staff Primary Care Provider Specialty: Medical Address: [address] [facility], [place], [address] Email: Papa Bronson MD Attending Provider Physician Specialty: Orthopedic Surgery Address: [address] [place] [address], [place], [address] Email: [email or web address] Plan Of Care PT-OP-T Assessment and Plan Start: 10/18/18 18:11 Freq: Status: Active Protocol: Document 10/19/18 16:32 AR (Rec: 10/19/18 17:10 AR [email or web address]) Physical Therapy Assessment Goals Walking Short Term Goal (STG) Pt will be able to walk at least 1/4 mile w/o AD, seated rest break or inc in pain no more than 2 points on VAS. STG Duration 11/19/2018 Senior Care Goal (LTG) Pt will be able to walk 1 mile w/o AD, seated rest break or inc in pain no more than 2 point on VAS. LTG Duration 12/19/2018 3 Impairment weakness Short Term Goal (STG) Pt will be compliant with HEP STG Duration 11/19/2018 Lead Injection Mold Technician Goal (LTG) Pt will demonstrate 5/5 MMT strength to be able to accomplish daily activities. LTG Duration 12/19/2018 2 Impairment pain Short Term Goal (STG) Pt will be able to step onto a [address] w/o pain in R hip or knee. STG Duration 11/19/2018 Senior Care Goal (LTG) Pt will be able to step into pickup truck w/o pain in R hip . LTG Duration 12/19/2018 1 Impairment decreased dynamic balance Lead Injection Mold Technician Goal (LTG) Pt will inc DGI by at least 2 points to dec fall risk Assessment Summary Assessment Pt presents with s/s of R hip flexor strain after falling off roof. Pt has decrease strength and mobility of R hip . Pt's hip and knee pain, weakness into hip flexion and decreased hip extension ROM all contribute to pt's gait impairments. Pt also shows impairments in balance and dec core stability (noted during LE MMTs). Pt is at a high fall risk given FGA score of 22/30 . Pt will benefit from skilled PT to focus on balance, gait, and strength training to address functional impairments and fall risk. Physical Therapy Plan Frequency and Duration Frequency of Treatment 1-2x/wk Duration of Treatment 2 months Plan of Care Start Date 10/19/18 Plan of Care End Date 12/19/18 Therapeutic Interventions Therapeutic Interventions Aquatic Therapy Balance Training Coordination Training Gait Training Home Exercise Program Joint Mobilizations Manual Therapy Neuromuscular Re-education Patient/Caregiver Education Self-Care/Home Management Soft Tissue Mobilization Taping Therapeutic Activities Therapeutic Exercises Modalities Cold Pack/Ice Massage Electric Stimulation Hot Packs Traction- Mechanical Next Visit Focus/Plan Next Note Type Treatment Note Next Visit Plan review HEP, progress glut and core exercises. incorporate balance training Plan of Care Dates Plan of Care Start Date 10/19/18 Plan of Care End Date 12/19/18 Please Sign and Return: I have reviewed this Plan of Care and certify that the skilled therapy services above are required to meet the patient?s needs. Physician Signature Date Printed Name and Credentials Clinical Instructor Signature Printed Name and Credentials
--- NOTE | 2018-10-23 19:20 | PT.OTN ---
Current Diagnoses Strain of muscle, fascia and tendon of right hip, initial encounter (10/23/18) Physical Therapy Treatment Note PT-OP-A Visit Information Start: 10/18/18 18:11 Freq: Status: Active Protocol: Document 10/23/18 14:08 AR (Rec: 10/23/18 14:20 AR [email or web address]) Out-Patient Physical Therapy Visit Information Visit Information Visit Type Treatment Note Visit Start Time 09:48 Visit Stop Time 10:45 Total Visit Minutes 57 Visit Number 2 Number of HOSIERY LOOPER Visits 0 PT-OP-B Current Condition Start: 10/18/18 18:11 Freq: Status: Active Protocol: Document 10/19/18 16:32 AR (Rec: 10/19/18 17:10 AR [email or web address]) Current Condition History of Current Condition Onset Date 09/25/2018 Current Complaints R groin pain, inc in R knee pain, decreased ROM, impaired balance History of Current Condition Pt fell off roof about 3 weeks ago. He did not go to urgent care until a couple weeks after the incident. Recent imaging shows no fracture or hip OA. Pt reports he has had an increase in pain in his R knee since the fall (hx of TKA , pain prior to fall). He is having pain with walking, mostly in his knee. He is unable to step into a car w/o significant pain and he was previously unable to step into truck. He was able to get into his truck today but had significant pain. Pt reports posterior hip pain while walking which eases with stretching into a small squat range. Pt also reports inc pain in posterior hip with extended sitting. Treatment Goals Patient/Caregiver Goals Increase ROM of RLE to WNL or at least equal to other side. Be able to get into and out of car w/o pain. 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 He was able to walk up stairs but it didn't look pretty. PT-OP-E Functional Tests Start: 10/18/18 18:11 Freq: Status: Active Protocol: Document 10/19/18 16:32 AR (Rec: 10/19/18 17:10 AR [email or web address]) Functional Tests Functional Gait Assessment Score 22/30 Functional Gait Assessment Impairment 20 to <40% Impaired (Score 19- Rating 24) PT-OP-F Manual Assessment Start: 10/18/18 18:11 Freq: Status: Active Protocol: Document 10/19/18 16:32 AR (Rec: 10/19/18 17:10 AR [email or web address]) Manual Assessments Joint Mobility Assessment Joint Mobility Assessment R hip IR and ER: hard end feel with limited ROM PT-OP-G Mobility & Gait Start: 10/18/18 18:11 Freq: Status: Active Protocol: Document 10/19/18 16:32 AR (Rec: 10/19/18 17:10 AR [email or web address]) OP Mobility Evaluation Bed Mobility Rolling pt able to perform independently, but takes significant effort and time to perform Supine to and from Sit pt able to perform independently, but takes significant effort and time to perform Functional Movements Squats demonstrated proper form within small ROM OP Gait Assessment Gait Gait Assistance Required: Independent Gait Deviations General Gait Pattern Antalgic Lateral Trunk Lean Factors Limiting Gait Function Factors Limiting Gait Function Limited Range of Motion Pain Stair Climbing Evaluation Evaluation Level of Assist On Stairs Standby Assistance Devices Stair Climbing Assistive Devices Left Railing Right Railing Technique/Endurance Stair Climbing Direction Ascend and Descend Stair Climbing Technique Step Over Step Number of Steps Climbed 4 Stair Climbing Set # Repetitions (reps) 2 PT-OP-K Range of Motion Start: 10/18/18 18:11 Freq: Status: Active Protocol: Document 10/19/18 16:32 AR (Rec: 10/19/18 17:10 AR [email or web address]) Hip Goniometric Range of Motion Hip Right Active Hip ROM WFL No Testing Position supine (flex), seated (IR/ER) Flexion w/Knee Flexed 70 Internal Rotation 10 External Rotation 33 Left Active Hip ROM WFL No Flexion w/Knee Flexed 110 Internal Rotation 15 External Rotation 25 Knee Goniometric Range of Motion Knee Right Flexion Active (degrees) 120 Left Flexion Active (degrees) 135 PT-OP-M Strength Start: 10/18/18 18:11 Freq: Status: Active Protocol: Document 10/19/18 16:32 AR (Rec: 10/19/18 17:10 AR [email or web address]) Hip Strength Hip Manual Muscle Testing Right Flexion (L2) 2- Poor- Extension (S1) 2 Poor Abduction 4- Good- External Rotation 4+ Good+ Internal Rotation 4+ Good+ Left Flexion (L2) 4 Good Extension (S1) 2+ Poor+ Abduction 4+ Good+ External Rotation 4+ Good+ Internal Rotation 4+ Good+ Knee Strength Knee Manual Muscle Testing Left Flexion (S2) 5 Normal Extension (L3) 5 Normal Right Flexion (S2) 5 Normal Extension (L3) 5 Normal PT-OP-Q Treatments Start: 10/18/18 18:11 Freq: Status: Active Protocol: Document 10/23/18 14:08 AR (Rec: 10/23/18 14:20 AR [email or web address]) Therapeutic Exercises Supine Exercises bridge Supine Exercise Name bridges Reps/Minutes 2x10 reps Comments with glut set before lifting hips marching Supine Exercise Name marches, bent knee fall outs w TA activation Side bilateral Reps/Minutes 15 reps each side Standing Exercises Step Ups Standing Exercise Name step ups Side bilateral Equipment Used 6 step Reps/Minutes 30 reps Manual Therapy Treatment Soft Tissue Mobilization hip flexors Body Location R hip flexors Mobilization Type Strumming Sustained Pressure Intensity/Depth Deep Body Position Hooklying Comments w hip IR/ER Neuro Re-Education Treatment Balance Activities Shuttle Board Details NBOS, stagger stance. eyes closed Surface red clips Reps/Duration 5 min Comments pt encouraged to maintain balance with ankle strategy rather than reaching when he lost balance Tandem Details tandem w eyes closed Surface level Reps/Duration 3 min Comments minimal sway, only 1 LOB but pt stated it was challenging PT-OP-R Modalities Start: 10/18/18 18:11 Freq: Status: Active Protocol: Document 10/23/18 14:08 AR (Rec: 10/23/18 14:20 AR [email or web address]) Hot Pack/Cold Pack Treatment Cold Pack Location R anterior hip Patient Position Supine Treatment Duration (minutes) 10 PT-OP-T Assessment and Plan Start: 10/18/18 18:11 Freq: Status: Active Protocol: Document 10/23/18 14:08 AR (Rec: 10/23/18 14:20 AR [email or web address]) Physical Therapy Assessment Goals Walking Short Term Goal (STG) Pt will be able to walk at least 1/4 mile w/o AD, seated rest break or inc in pain no more than 2 points on VAS. STG Duration 11/19/2018 Wire Wheeler Goal (LTG) Pt will be able to walk 1 mile w/o AD, seated rest break or inc in pain no more than 2 point on VAS. LTG Duration 12/19/2018 3 Impairment weakness Short Term Goal (STG) Pt will be compliant with HEP STG Duration 11/19/2018 Usp Goal (LTG) Pt will demonstrate 5/5 MMT strength to be able to accomplish daily activities. LTG Duration 12/19/2018 2 Impairment pain Short Term Goal (STG) Pt will be able to step onto a [address] w/o pain in R hip or knee. STG Duration 11/19/2018 Usp Goal (LTG) Pt will be able to step into pickup truck w/o pain in R hip . LTG Duration 12/19/2018 1 Impairment decreased dynamic balance Usp Goal (LTG) Pt will inc DGI by at least 2 points to dec fall risk Assessment Summary Assessment Pt presents with dec balance and strength. Pt's cramping in HS with bridging likely d/t dec activation of gluts, as cramping resolved with cueing for glut squeeze. Pt was challenged by using ankle strategy to maintain balance on shuttle board. Pt will benefit from continued therapy to strengthen LEs and improve balance. Physical Therapy Plan Frequency and Duration Frequency of Treatment 1-2x/wk Duration of Treatment 2 months Plan of Care Start Date 10/19/18 Plan of Care End Date 12/19/18 Next Visit Focus/Plan Next Note Type Treatment Note Next Visit Plan tandem w one foot on unstable surface. step ups, lunges. progress core exercises
--- NOTE | 2018-10-26 17:39 | PT.OTN ---
Current Diagnoses Strain of muscle, fascia and tendon of right hip, initial encounter (10/26/18) Physical Therapy Treatment Note PT-OP-A Visit Information Start: 10/18/18 18:11 Freq: Status: Active Protocol: Document 10/26/18 16:57 AR (Rec: 10/26/18 17:15 AR [email or web address]) Out-Patient Physical Therapy Visit Information Visit Information Visit Type Treatment Note Visit Start Time 15:20 Visit Stop Time 16:00 Total Visit Minutes 40 Visit Number 3 Number of FOURTH GRADE TEACHER Visits 0 PT-OP-B Current Condition Start: 10/18/18 18:11 Freq: Status: Active Protocol: Document 10/19/18 16:32 AR (Rec: 10/19/18 17:10 AR [email or web address]) Current Condition History of Current Condition Onset Date 09/25/2018 Current Complaints R groin pain, inc in R knee pain, decreased ROM, impaired balance History of Current Condition Pt fell off roof about 3 weeks ago. He did not go to urgent care until a couple weeks after the incident. Recent imaging shows no fracture or hip OA. Pt reports he has had an increase in pain in his R knee since the fall (hx of TKA , pain prior to fall). He is having pain with walking, mostly in his knee. He is unable to step into a car w/o significant pain and he was previously unable to step into truck. He was able to get into his truck today but had significant pain. Pt reports posterior hip pain while walking which eases with stretching into a small squat range. Pt also reports inc pain in posterior hip with extended sitting. Treatment Goals Patient/Caregiver Goals Increase ROM of RLE to WNL or at least equal to other side. Be able to get into and out of car w/o pain. Prior Functional Status Baseline Function- ADL's Independent Baseline Function- Mobility Independent Personal Factors Other Personal Factors That May Effect previous joint surgeries (L Therapy/Recovery shoulder x2, R shoulder, R TKA ) PT-OP-C Subjective Start: 10/18/18 18:11 Freq: Status: Active Protocol: Document 10/26/18 16:57 AR (Rec: 10/26/18 17:15 AR [email or web address]) OP-PT Subjective Patient Comments Patient Comments Pt reluctantly admitted he was discouraged after last session and was in a lot of pain for a few hours after treatment. He was unsure if therapy was helpful or if his condition was something he should be able to get over on his own. PT-OP-E Functional Tests Start: 10/18/18 18:11 Freq: Status: Active Protocol: Document 10/19/18 16:32 AR (Rec: 10/19/18 17:10 AR [email or web address]) Functional Tests Functional Gait Assessment Score 22/30 Functional Gait Assessment Impairment 20 to <40% Impaired (Score 19- Rating 24) PT-OP-F Manual Assessment Start: 10/18/18 18:11 Freq: Status: Active Protocol: Document 10/19/18 16:32 AR (Rec: 10/19/18 17:10 AR [email or web address]) Manual Assessments Joint Mobility Assessment Joint Mobility Assessment R hip IR and ER: hard end feel with limited ROM PT-OP-G Mobility & Gait Start: 10/18/18 18:11 Freq: Status: Active Protocol: Document 10/19/18 16:32 AR (Rec: 10/19/18 17:10 AR [email or web address]) OP Mobility Evaluation Bed Mobility Rolling pt able to perform independently, but takes significant effort and time to perform Supine to and from Sit pt able to perform independently, but takes significant effort and time to perform Functional Movements Squats demonstrated proper form within small ROM OP Gait Assessment Gait Gait Assistance Required: Independent Gait Deviations General Gait Pattern Antalgic Lateral Trunk Lean Factors Limiting Gait Function Factors Limiting Gait Function Limited Range of Motion Pain Stair Climbing Evaluation Evaluation Level of Assist On Stairs Standby Assistance Devices Stair Climbing Assistive Devices Left Railing Right Railing Technique/Endurance Stair Climbing Direction Ascend and Descend Stair Climbing Technique Step Over Step Number of Steps Climbed 4 Stair Climbing Set # Repetitions (reps) 2 PT-OP-K Range of Motion Start: 10/18/18 18:11 Freq: Status: Active Protocol: Document 10/19/18 16:32 AR (Rec: 10/19/18 17:10 AR [email or web address]) Hip Goniometric Range of Motion Hip Right Active Hip ROM WFL No Testing Position supine (flex), seated (IR/ER) Flexion w/Knee Flexed 70 Internal Rotation 10 External Rotation 33 Left Active Hip ROM WFL No Flexion w/Knee Flexed 110 Internal Rotation 15 External Rotation 25 Knee Goniometric Range of Motion Knee Right Flexion Active (degrees) 120 Left Flexion Active (degrees) 135 PT-OP-M Strength Start: 10/18/18 18:11 Freq: Status: Active Protocol: Document 10/19/18 16:32 AR (Rec: 10/19/18 17:10 AR [email or web address]) Hip Strength Hip Manual Muscle Testing Right Flexion (L2) 2- Poor- Extension (S1) 2 Poor Abduction 4- Good- External Rotation 4+ Good+ Internal Rotation 4+ Good+ Left Flexion (L2) 4 Good Extension (S1) 2+ Poor+ Abduction 4+ Good+ External Rotation 4+ Good+ Internal Rotation 4+ Good+ Knee Strength Knee Manual Muscle Testing Left Flexion (S2) 5 Normal Extension (L3) 5 Normal Right Flexion (S2) 5 Normal Extension (L3) 5 Normal PT-OP-Q Treatments Start: 10/18/18 18:11 Freq: Status: Active Protocol: Document 10/26/18 16:57 AR (Rec: 10/26/18 17:15 AR [email or web address]) Therapeutic Exercises Supine Exercises hip IR Supine Exercise Name rolling LE in and out for stretch into IR Side right Reps/Minutes 20 reps, 5 sec holds Comments added to HEP bridge Supine Exercise Name bridges Reps/Minutes 2x10 reps Comments with glut set before lifting hips. caused HS cramping Standing Exercises hip extension Standing Exercise Name standing hip ext Side right Resistance level 2 Equipment Used theraband Reps/Minutes 2x10 reps Comments did not cause HS cramping Manual Therapy Treatment Soft Tissue Mobilization TFL Body Location TFL Mobilization Type Oscillations Sustained Pressure Intensity/Depth Moderate Body Position Prone Comments pt reported pain in lateral hip with IR mobs. STM helped to decrease pain Joint Mobilizations hip Joint hip Direction inf, IR, ER Grade III Comments with contract relax. ER improved with mobilization. pain with IR decreased with STM of TFL, but pt did not gain any ROM with IR mobilizations. IR to neurtral PT-OP-R Modalities Start: 10/18/18 18:11 Freq: Status: Active Protocol: Document 10/23/18 14:08 AR (Rec: 10/23/18 14:20 AR [email or web address]) Hot Pack/Cold Pack Treatment Cold Pack Location R anterior hip Patient Position Supine Treatment Duration (minutes) 10 PT-OP-T Assessment and Plan Start: 10/18/18 18:11 Freq: Status: Active Protocol: Document 08/15/19 16:57 AR (Rec: 10/26/18 17:15 AR [email or web address]) Physical Therapy Assessment Goals Walking Short Term Goal (STG) Pt will be able to walk at least 1/4 mile w/o AD, seated rest break or inc in pain no more than 2 points on VAS. STG Duration 11/19/2018 Custodial Goal (LTG) Pt will be able to walk 1 mile w/o AD, seated rest break or inc in pain no more than 2 point on VAS. LTG Duration 12/19/2018 3 Impairment weakness Short Term Goal (STG) Pt will be compliant with HEP STG Duration 11/19/2018 Custodial Goal (LTG) Pt will demonstrate 5/5 MMT strength to be able to accomplish daily activities. LTG Duration 12/19/2018 2 Impairment pain Short Term Goal (STG) Pt will be able to step onto a [address] w/o pain in R hip or knee. STG Duration 11/19/2018 Custodial Goal (LTG) Pt will be able to step into pickup truck w/o pain in R hip . LTG Duration 12/19/2018 1 Impairment decreased dynamic balance Custodial Goal (LTG) Pt will inc DGI by at least 2 points to dec fall risk Assessment Summary Assessment Pt presents with decreased hip mobility and myofascial restrictions throughout LE. Pt had difficulty isolating glute activation w/o HS activation in bridging even with cueing for glut activation, but he was able to do so after standing hip ext with knee extended. Pt was encouraged to keep therapist informed of his response to therapy so as to avoid further irritation of injuries. Physical Therapy Plan Frequency and Duration Frequency of Treatment 1-2x/wk Duration of Treatment 2 months Plan of Care Start Date 10/19/18 Plan of Care End Date 12/19/18 Next Visit Focus/Plan Next Note Type Treatment Note Next Visit Plan cont to address manual restrictions that may be leading to restricted hip ROM. progress glute strengthening exercises
--- NOTE | 2018-11-08 15:40 | PT.OTN ---
Current Diagnoses Strain of muscle, fascia and tendon of right hip, initial encounter (11/08/18) Physical Therapy Treatment Note PT-OP-A Visit Information Start: 10/18/18 18:11 Freq: Status: Active Protocol: Document 11/08/18 10:30 AR (Rec: 11/08/18 14:01 AR [id number]) Out-Patient Physical Therapy Visit Information Visit Information Visit Type Treatment Note Visit Start Time 10:30 Visit Stop Time 11:15 Total Visit Minutes 45 Visit Number 4 Number of SHARK BIOLOGIST Visits 0 PT-OP-B Current Condition Start: 10/18/18 18:11 Freq: Status: Active Protocol: Document 10/19/18 16:32 AR (Rec: 10/19/18 17:10 AR [email or web address]) Current Condition History of Current Condition Onset Date 09/25/2018 Current Complaints R groin pain, inc in R knee pain, decreased ROM, impaired balance History of Current Condition Pt fell off roof about 3 weeks ago. He did not go to urgent care until a couple weeks after the incident. Recent imaging shows no fracture or hip OA. Pt reports he has had an increase in pain in his R knee since the fall (hx of TKA , pain prior to fall). He is having pain with walking, mostly in his knee. He is unable to step into a car w/o significant pain and he was previously unable to step into truck. He was able to get into his truck today but had significant pain. Pt reports posterior hip pain while walking which eases with stretching into a small squat range. Pt also reports inc pain in posterior hip with extended sitting. Treatment Goals Patient/Caregiver Goals Increase ROM of RLE to WNL or at least equal to other side. Be able to get into and out of car w/o pain. Prior Functional Status Baseline Function- ADL's Independent Baseline Function- Mobility Independent Personal Factors Other Personal Factors That May Effect previous joint surgeries (L Therapy/Recovery shoulder x2, R shoulder, R TKA ) PT-OP-C Subjective Start: 10/18/18 18:11 Freq: Status: Active Protocol: Document 11/08/18 10:30 AR (Rec: 11/08/18 14:01 AR [id number]) OP-PT Subjective Patient Comments Patient Comments Pt has had difficulty finding somewhere to do bridges, as he has a hard time getting up and down from the ground. He is also unsure of where to use the bosu at home because he does not feel safe balancing on it. Both hips have been bothered by walking up and down stairs (more with descent ). He also feels like his right hip gets stuck when going into flexion. PT-OP-E Functional Tests Start: 10/18/18 18:11 Freq: Status: Active Protocol: Document 10/19/18 16:32 AR (Rec: 10/19/18 17:10 AR [email or web address]) Functional Tests Functional Gait Assessment Score 22/30 Functional Gait Assessment Impairment 20 to <40% Impaired (Score 19- Rating 24) PT-OP-F Manual Assessment Start: 10/18/18 18:11 Freq: Status: Active Protocol: Document 10/19/18 16:32 AR (Rec: 10/19/18 17:10 AR [email or web address]) Manual Assessments Joint Mobility Assessment Joint Mobility Assessment R hip IR and ER: hard end feel with limited ROM PT-OP-G Mobility & Gait Start: 10/18/18 18:11 Freq: Status: Active Protocol: Document 10/19/18 16:32 AR (Rec: 10/19/18 17:10 AR [email or web address]) OP Mobility Evaluation Bed Mobility Rolling pt able to perform independently, but takes significant effort and time to perform Supine to and from Sit pt able to perform independently, but takes significant effort and time to perform Functional Movements Squats demonstrated proper form within small ROM OP Gait Assessment Gait Gait Assistance Required: Independent Gait Deviations General Gait Pattern Antalgic,Lateral Trunk Lean Factors Limiting Gait Function Factors Limiting Gait Function Limited Range of Motion,Pain Stair Climbing Evaluation Evaluation Level of Assist On Stairs Standby Assistance Devices Stair Climbing Assistive Devices Left Railing,Right Railing Technique/Endurance Stair Climbing Direction Ascend and Descend Stair Climbing Technique Step Over Step Number of Steps Climbed 4 Stair Climbing Set # Repetitions (reps) 2 PT-OP-K Range of Motion Start: 10/18/18 18:11 Freq: Status: Active Protocol: Document 10/19/18 16:32 AR (Rec: 10/19/18 17:10 AR [email or web address]) Hip Goniometric Range of Motion Hip Right Active Hip ROM WFL No Testing Position supine (flex), seated (IR/ER) Flexion w/Knee Flexed 70 Internal Rotation 10 External Rotation 33 Left Active Hip ROM WFL No Flexion w/Knee Flexed 110 Internal Rotation 15 External Rotation 25 Knee Goniometric Range of Motion Knee Right Flexion Active (degrees) 120 Left Flexion Active (degrees) 135 PT-OP-M Strength Start: 10/18/18 18:11 Freq: Status: Active Protocol: Document 10/19/18 16:32 AR (Rec: 10/19/18 17:10 AR [email or web address]) Hip Strength Hip Manual Muscle Testing Right Flexion (L2) 2- Poor- Extension (S1) 2 Poor Abduction 4- Good- External Rotation 4+ Good+ Internal Rotation 4+ Good+ Left Flexion (L2) 4 Good Extension (S1) 2+ Poor+ Abduction 4+ Good+ External Rotation 4+ Good+ Internal Rotation 4+ Good+ Knee Strength Knee Manual Muscle Testing Left Flexion (S2) 5 Normal Extension (L3) 5 Normal Right Flexion (S2) 5 Normal Extension (L3) 5 Normal PT-OP-Q Treatments Start: 10/18/18 18:11 Freq: Status: Active Protocol: Document 11/08/18 10:30 AR (Rec: 11/08/18 14:01 AR [id number]) Therapeutic Exercises Supine Exercises eccentric hip flexion Supine Exercise Name with towel to help pull into flexion Side right Reps/Minutes 10 reps rigoberto test stretch Supine Exercise Name rigoberto test stretch Side right Reps/Minutes 2x30 sec Sitting Exercises glute set Sitting Exercise Name B & alternating Reps/Minutes 10 ea Comments pt had difficulty isolating left glute Standing Exercises hip hinge Standing Exercise Name hip hinge Equipment Used counter top Reps/Minutes 20 reps Comments added to HEP, prior to squats quad/hip flexor stretch Standing Exercise Name hip flexor stretch Side bilateral Equipment Used counter top Reps/Minutes 30 sec hold squats Standing Exercise Name squats Side bilateral Equipment Used counter top Reps/Minutes 2x15 reps Comments cued for hip hinge Manual Therapy Treatment Soft Tissue Mobilization hip flexors Body Location B hip flexors Mobilization Type Strumming,Sustained Pressure Intensity/Depth Deep Body Position Supine Comments w hip IR/ER Joint Mobilizations hip Joint R hip Direction inf Grade III Comments with contract relax. inc in ROM, did not change feeling like something was blocking movement in the joint Neuro Re-Education Treatment Balance Activities Shuttle Board Details NBOS w head turns Surface red clips Reps/Duration 5 min Comments pt encouraged to maintain balance with ankle strategy rather than reaching when he lost balance bosu Details standing on bosu Surface right side up Reps/Duration 3 min Comments educated on performing at home w bosu in corner, using counter for support Tandem Details tandem Surface level Reps/Duration 3 min Comments minimal sway PT-OP-R Modalities Start: 10/18/18 18:11 Freq: Status: Active Protocol: Document 10/23/18 14:08 AR (Rec: 10/23/18 14:20 AR [email or web address]) Hot Pack/Cold Pack Treatment Cold Pack Location R anterior hip Patient Position Supine Treatment Duration (minutes) 10 PT-OP-T Assessment and Plan Start: 10/18/18 18:11 Freq: Status: Active Protocol: Document 11/08/18 10:30 AR (Rec: 11/08/18 14:01 AR [id number]) Physical Therapy Assessment Goals Walking Short Term Goal (STG) Pt will be able to walk at least 1/4 mile w/o AD, seated rest break or inc in pain no more than 2 points on VAS. STG Duration 11/19/2018 Iv Technician Goal (LTG) Pt will be able to walk 1 mile w/o AD, seated rest break or inc in pain no more than 2 point on VAS. LTG Duration 12/19/2018 3 Impairment weakness Short Term Goal (STG) Pt will be compliant with HEP STG Duration 11/19/2018 Iv Technician Goal (LTG) Pt will demonstrate 5/5 MMT strength to be able to accomplish daily activities. LTG Duration 12/19/2018 2 Impairment pain Short Term Goal (STG) Pt will be able to step onto a [address] w/o pain in R hip or knee. STG Duration 11/19/2018 Iv Technician Goal (LTG) Pt will be able to step into pickup truck w/o pain in R hip . LTG Duration 12/19/2018 1 Impairment decreased dynamic balance Iv Technician Goal (LTG) Pt will inc DGI by at least 2 points to dec fall risk Assessment Summary Assessment Pt presents with limited mobility of hips and dec strength of hip flexors. Pt reports compliance with HEP other than exercises that were challenging. Treatment to focus on hip mobility, glute strength and balance to dec pain and improve functional mobility. Physical Therapy Plan Frequency and Duration Frequency of Treatment 1-2x/wk Duration of Treatment 2 months Plan of Care Start Date 10/19/18 Plan of Care End Date 12/19/18 Next Visit Focus/Plan Next Note Type Treatment Note Next Visit Plan address manual restrictions. progress balance training. lunges if appropriate
--- NOTE | 2018-11-21 17:57 | PT.OTN ---
Current Diagnoses Strain of muscle, fascia and tendon of right hip, initial encounter (11/21/18) Physical Therapy Treatment Note PT-OP-A Visit Information Start: 10/18/18 18:11 Freq: Status: Active Protocol: Document 11/21/18 16:10 AR (Rec: 11/21/18 16:30 AR [id number]) Out-Patient Physical Therapy Visit Information Visit Information Visit Type Treatment Note Visit Start Time 11:15 Visit Stop Time 12:00 Total Visit Minutes 45 Visit Number 5 Number of PLANT OPERATIONS ENGINEER Visits 0 PT-OP-B Current Condition Start: 10/18/18 18:11 Freq: Status: Active Protocol: Document 10/19/18 16:32 AR (Rec: 10/19/18 17:10 AR [email or web address]) Current Condition History of Current Condition Onset Date 09/25/2018 Current Complaints R groin pain, inc in R knee pain, decreased ROM, impaired balance History of Current Condition Pt fell off roof about 3 weeks ago. He did not go to urgent care until a couple weeks after the incident. Recent imaging shows no fracture or hip OA. Pt reports he has had an increase in pain in his R knee since the fall (hx of TKA , pain prior to fall). He is having pain with walking, mostly in his knee. He is unable to step into a car w/o significant pain and he was previously unable to step into truck. He was able to get into his truck today but had significant pain. Pt reports posterior hip pain while walking which eases with stretching into a small squat range. Pt also reports inc pain in posterior hip with extended sitting. Treatment Goals Patient/Caregiver Goals Increase ROM of RLE to WNL or at least equal to other side. Be able to get into and out of car w/o pain. Prior Functional Status Baseline Function- ADL's Independent Baseline Function- Mobility Independent Personal Factors Other Personal Factors That May Effect previous joint surgeries (L Therapy/Recovery shoulder x2, R shoulder, R TKA ) PT-OP-C Subjective Start: 10/18/18 18:11 Freq: Status: Active Protocol: Document 11/21/18 16:10 AR (Rec: 11/21/18 16:30 AR [id number]) OP-PT Subjective Patient Comments Patient Comments Pt is still unable to lift R foot more than 8 inches off the ground actively, d/t weakness. He is able to actively achieve hip flexion in supine. His lower back still hurts when he walks for long distances. PT-OP-E Functional Tests Start: 10/18/18 18:11 Freq: Status: Active Protocol: Document 10/19/18 16:32 AR (Rec: 10/19/18 17:10 AR [email or web address]) Functional Tests Functional Gait Assessment Score 22/30 Functional Gait Assessment Impairment 20 to <40% Impaired (Score 19- Rating 24) PT-OP-F Manual Assessment Start: 10/18/18 18:11 Freq: Status: Active Protocol: Document 10/19/18 16:32 AR (Rec: 10/19/18 17:10 AR [email or web address]) Manual Assessments Joint Mobility Assessment Joint Mobility Assessment R hip IR and ER: hard end feel with limited ROM PT-OP-G Mobility & Gait Start: 10/18/18 18:11 Freq: Status: Active Protocol: Document 10/19/18 16:32 AR (Rec: 10/19/18 17:10 AR [email or web address]) OP Mobility Evaluation Bed Mobility Rolling pt able to perform independently, but takes significant effort and time to perform Supine to and from Sit pt able to perform independently, but takes significant effort and time to perform Functional Movements Squats demonstrated proper form within small ROM OP Gait Assessment Gait Gait Assistance Required: Independent Gait Deviations General Gait Pattern Antalgic,Lateral Trunk Lean Factors Limiting Gait Function Factors Limiting Gait Function Limited Range of Motion,Pain Stair Climbing Evaluation Evaluation Level of Assist On Stairs Standby Assistance Devices Stair Climbing Assistive Devices Left Railing,Right Railing Technique/Endurance Stair Climbing Direction Ascend and Descend Stair Climbing Technique Step Over Step Number of Steps Climbed 4 Stair Climbing Set # Repetitions (reps) 2 PT-OP-K Range of Motion Start: 10/18/18 18:11 Freq: Status: Active Protocol: Document 10/19/18 16:32 AR (Rec: 10/19/18 17:10 AR [email or web address]) Hip Goniometric Range of Motion Hip Right Active Hip ROM WFL No Testing Position supine (flex), seated (IR/ER) Flexion w/Knee Flexed 70 Internal Rotation 10 External Rotation 33 Left Active Hip ROM WFL No Flexion w/Knee Flexed 110 Internal Rotation 15 External Rotation 25 Knee Goniometric Range of Motion Knee Right Flexion Active (degrees) 120 Left Flexion Active (degrees) 135 PT-OP-M Strength Start: 10/18/18 18:11 Freq: Status: Active Protocol: Document 10/19/18 16:32 AR (Rec: 10/19/18 17:10 AR [email or web address]) Hip Strength Hip Manual Muscle Testing Right Flexion (L2) 2- Poor- Extension (S1) 2 Poor Abduction 4- Good- External Rotation 4+ Good+ Internal Rotation 4+ Good+ Left Flexion (L2) 4 Good Extension (S1) 2+ Poor+ Abduction 4+ Good+ External Rotation 4+ Good+ Internal Rotation 4+ Good+ Knee Strength Knee Manual Muscle Testing Left Flexion (S2) 5 Normal Extension (L3) 5 Normal Right Flexion (S2) 5 Normal Extension (L3) 5 Normal PT-OP-Q Treatments Start: 10/18/18 18:11 Freq: Status: Active Protocol: Document 11/21/18 16:10 AR (Rec: 11/21/18 16:30 AR [id number]) Therapeutic Exercises Supine Exercises hip IR Supine Exercise Name knees bent, rocking LE in and out for stretch into IR Side right Reps/Minutes 20 reps, 5 sec holds Comments added to HEP hip flex isometric Supine Exercise Name hip flex iso Side right Resistance pt manual resistance Reps/Minutes 5x5 sec holds Standing Exercises lunge Standing Exercise Name lunge Side bilateral Equipment Used railing Reps/Minutes 10 ea Comments pt did not report difficulty, but swayed d/t balance being challenged TKE Standing Exercise Name TKE Side right Resistance L2 Equipment Used theraband Reps/Minutes 20 reps Manual Therapy Treatment Soft Tissue Mobilization TFL Body Location TFL Mobilization Type Oscillations,Sustained Pressure Intensity/Depth Moderate Body Position Supine Joint Mobilizations hip Joint R hip Direction inf with IR bias Grade III Comments with contract relax. inc in ROM. pt educated to do PROM IR at home to maintain range Neuro Re-Education Treatment Balance Activities seated on tball Details w marches Surface large red tball Reps/Duration 20 ea Comments pt had difficulty lifting RLE but was able to lift 1-2 inches off ground static lunge w balloon volley Details static lunge w balloon volley outside LOS Surface level Equipment railing Reps/Duration 3 min ea toe taps onto cone Details SLS w/taps onto cone Surface level Equipment stacking cone, railing Reps/Duration 20 reps Tandem Details tandem Surface level Reps/Duration 3 min Comments minimal sway PT-OP-R Modalities Start: 10/18/18 18:11 Freq: Status: Active Protocol: Document 10/23/18 14:08 AR (Rec: 10/23/18 14:20 AR [email or web address]) Hot Pack/Cold Pack Treatment Cold Pack Location R anterior hip Patient Position Supine Treatment Duration (minutes) 10 PT-OP-T Assessment and Plan Start: 10/18/18 18:11 Freq: Status: Active Protocol: Document 11/21/18 16:10 AR (Rec: 11/21/18 16:30 AR [id number]) Physical Therapy Assessment Goals Walking Short Term Goal (STG) Pt will be able to walk at least 1/4 mile w/o AD, seated rest break or inc in pain no more than 2 points on VAS. STG Duration 11/19/2018 Skilled Nursing Goal (LTG) Pt will be able to walk 1 mile w/o AD, seated rest break or inc in pain no more than 2 point on VAS. LTG Duration 12/19/2018 3 Impairment weakness Short Term Goal (STG) Pt will be compliant with HEP STG Duration 11/19/2018 Skilled Nursing Goal (LTG) Pt will demonstrate 5/5 MMT strength to be able to accomplish daily activities. LTG Duration 12/19/2018 2 Impairment pain Short Term Goal (STG) Pt will be able to step onto a [address] w/o pain in R hip or knee. STG Duration 11/19/2018 City Dispatch Supervisor Goal (LTG) Pt will be able to step into pickup truck w/o pain in R hip . LTG Duration 12/19/2018 1 Impairment decreased dynamic balance Skilled Nursing Goal (LTG) Pt will inc DGI by at least 2 points to dec fall risk Assessment Summary Assessment Pt presents with weakness in R hip flexors and exercises focused on strenthening while balancing on contralateral LE. Pt still has decreased balance, but was able to maintain balance during static lunge position with balloon volley with minimal grabs for railing. Limited hip ROM may be contributing to LBP during amb and ROM was addressed manually today. Physical Therapy Plan Frequency and Duration Frequency of Treatment 1-2x/wk Duration of Treatment 2 months Plan of Care Start Date 10/19/18 Plan of Care End Date 12/19/18 Next Visit Focus/Plan Next Note Type Treatment Note Next Visit Plan hip flexor strengthening as tolerated (theraband around foot in supine, standing marches). progress balance training (tap cones with RLE, unstable surface)
--- NOTE | 2018-11-23 16:39 | PT.OTN ---
Current Diagnoses Strain of muscle, fascia and tendon of right hip, initial encounter (11/23/18) Physical Therapy Treatment Note PT-OP-A Visit Information Start: 10/18/18 18:11 Freq: Status: Active Protocol: Document 11/23/18 14:20 AR (Rec: 11/23/18 14:32 AR [email or web address]) Out-Patient Physical Therapy Visit Information Visit Information Visit Type Treatment Note Visit Start Time 09:00 Visit Stop Time 09:40 Total Visit Minutes 40 Visit Number 6 Number of LOGISTICS COORDINATOR Visits 0 PT-OP-B Current Condition Start: 10/18/18 18:11 Freq: Status: Active Protocol: Document 10/19/18 16:32 AR (Rec: 10/19/18 17:10 AR [email or web address]) Current Condition History of Current Condition Onset Date 09/25/2018 Current Complaints R groin pain, inc in R knee pain, decreased ROM, impaired balance History of Current Condition Pt fell off roof about 3 weeks ago. He did not go to urgent care until a couple weeks after the incident. Recent imaging shows no fracture or hip OA. Pt reports he has had an increase in pain in his R knee since the fall (hx of TKA , pain prior to fall). He is having pain with walking, mostly in his knee. He is unable to step into a car w/o significant pain and he was previously unable to step into truck. He was able to get into his truck today but had significant pain. Pt reports posterior hip pain while walking which eases with stretching into a small squat range. Pt also reports inc pain in posterior hip with extended sitting. Treatment Goals Patient/Caregiver Goals Increase ROM of RLE to WNL or at least equal to other side. Be able to get into and out of car w/o pain. Prior Functional Status Baseline Function- ADL's Independent Baseline Function- Mobility Independent Personal Factors Other Personal Factors That May Effect previous joint surgeries (L Therapy/Recovery shoulder x2, R shoulder, R TKA ) PT-OP-C Subjective Start: 10/18/18 18:11 Freq: Status: Active Protocol: Document 11/23/18 14:20 AR (Rec: 11/23/18 14:32 AR [email or web address]) OP-PT Subjective Patient Comments Patient Comments Pt has been compliant with HEP . He still notices a dec in strength of his R hip flexors. PT-OP-E Functional Tests Start: 10/18/18 18:11 Freq: Status: Active Protocol: Document 10/19/18 16:32 AR (Rec: 10/19/18 17:10 AR [email or web address]) Functional Tests Functional Gait Assessment Score 22/30 Functional Gait Assessment Impairment 20 to <40% Impaired (Score 19- Rating 24) PT-OP-F Manual Assessment Start: 10/18/18 18:11 Freq: Status: Active Protocol: Document 10/19/18 16:32 AR (Rec: 10/19/18 17:10 AR [email or web address]) Manual Assessments Joint Mobility Assessment Joint Mobility Assessment R hip IR and ER: hard end feel with limited ROM PT-OP-G Mobility & Gait Start: 10/18/18 18:11 Freq: Status: Active Protocol: Document 10/19/18 16:32 AR (Rec: 10/19/18 17:10 AR [email or web address]) OP Mobility Evaluation Bed Mobility Rolling pt able to perform independently, but takes significant effort and time to perform Supine to and from Sit pt able to perform independently, but takes significant effort and time to perform Functional Movements Squats demonstrated proper form within small ROM OP Gait Assessment Gait Gait Assistance Required: Independent Gait Deviations General Gait Pattern Antalgic,Lateral Trunk Lean Factors Limiting Gait Function Factors Limiting Gait Function Limited Range of Motion,Pain Stair Climbing Evaluation Evaluation Level of Assist On Stairs Standby Assistance Devices Stair Climbing Assistive Devices Left Railing,Right Railing Technique/Endurance Stair Climbing Direction Ascend and Descend Stair Climbing Technique Step Over Step Number of Steps Climbed 4 Stair Climbing Set # Repetitions (reps) 2 PT-OP-K Range of Motion Start: 10/18/18 18:11 Freq: Status: Active Protocol: Document 10/19/18 16:32 AR (Rec: 10/19/18 17:10 AR [email or web address]) Hip Goniometric Range of Motion Hip Right Active Hip ROM WFL No Testing Position supine (flex), seated (IR/ER) Flexion w/Knee Flexed 70 Internal Rotation 10 External Rotation 33 Left Active Hip ROM WFL No Flexion w/Knee Flexed 110 Internal Rotation 15 External Rotation 25 Knee Goniometric Range of Motion Knee Right Flexion Active (degrees) 120 Left Flexion Active (degrees) 135 PT-OP-M Strength Start: 10/18/18 18:11 Freq: Status: Active Protocol: Document 10/19/18 16:32 AR (Rec: 10/19/18 17:10 AR [email or web address]) Hip Strength Hip Manual Muscle Testing Right Flexion (L2) 2- Poor- Extension (S1) 2 Poor Abduction 4- Good- External Rotation 4+ Good+ Internal Rotation 4+ Good+ Left Flexion (L2) 4 Good Extension (S1) 2+ Poor+ Abduction 4+ Good+ External Rotation 4+ Good+ Internal Rotation 4+ Good+ Knee Strength Knee Manual Muscle Testing Left Flexion (S2) 5 Normal Extension (L3) 5 Normal Right Flexion (S2) 5 Normal Extension (L3) 5 Normal PT-OP-Q Treatments Start: 10/18/18 18:11 Freq: Status: Active Protocol: Document 11/23/18 14:20 AR (Rec: 11/23/18 14:32 AR [email or web address]) Therapeutic Exercises Supine Exercises resisted hip flexion Supine Exercise Name band around B feet Side right Resistance yellow theraband Reps/Minutes 10 reps Standing Exercises resisted hip flexion Standing Exercise Name band around B feet Side right Resistance yellow theraband Equipment Used railing Reps/Minutes 2x15 reps Step Ups Standing Exercise Name step ups Side right Reps/Minutes 3 min Manual Therapy Treatment Soft Tissue Mobilization hip flexors Body Location hip flexors Mobilization Type Strumming,Sustained Pressure Intensity/Depth Moderate Body Position Supine Comments w gentle hip IR/ER Joint Mobilizations hip Joint R hip Direction inf with IR bias Grade III Neuro Re-Education Treatment Balance Activities aminata disc Details static stance on aminata disc Surface blue aminata disc Reps/Duration 4 min NBOS Details eyes closed Surface level Reps/Duration 3 min toe taps onto cone Details SLS w/taps onto cone Surface level Equipment stacking cone, railing Comments 4 cones, instructed to tap different colors w each foot. Pt had more trouble with SLS on RLE Tandem Details tandem, eyes closed Surface level Reps/Duration 2 min ea Comments minimal sway PT-OP-R Modalities Start: 10/18/18 18:11 Freq: Status: Active Protocol: Document 10/23/18 14:08 AR (Rec: 10/23/18 14:20 AR [email or web address]) Hot Pack/Cold Pack Treatment Cold Pack Location R anterior hip Patient Position Supine Treatment Duration (minutes) 10 PT-OP-T Assessment and Plan Start: 10/18/18 18:11 Freq: Status: Active Protocol: Document 11/23/18 14:20 AR (Rec: 11/23/18 14:32 AR [email or web address]) Physical Therapy Assessment Goals Walking Short Term Goal (STG) Pt will be able to walk at least 1/4 mile w/o AD, seated rest break or inc in pain no more than 2 points on VAS. STG Duration 11/19/2018 Moth Proofer Goal (LTG) Pt will be able to walk 1 mile w/o AD, seated rest break or inc in pain no more than 2 point on VAS. LTG Duration 12/19/2018 3 Impairment weakness Short Term Goal (STG) Pt will be compliant with HEP STG Duration 11/19/2018 Moth Proofer Goal (LTG) Pt will demonstrate 5/5 MMT strength to be able to accomplish daily activities. LTG Duration 12/19/2018 2 Impairment pain Short Term Goal (STG) Pt will be able to step onto a [address] w/o pain in R hip or knee. STG Duration 11/19/2018 Moth Proofer Goal (LTG) Pt will be able to step into pickup truck w/o pain in R hip . LTG Duration 12/19/2018 1 Impairment decreased dynamic balance Snf Goal (LTG) Pt will inc DGI by at least 2 points to dec fall risk Assessment Summary Assessment Pt's active hip flexion has improved, but is still limited to about 6 inches. Exercises to target hip flexor strength and balance. Pt was challenged by static stance on aminata disc . Pt's hip IR has improved since last visit, but is still limited. Physical Therapy Plan Frequency and Duration Frequency of Treatment 1-2x/wk Duration of Treatment 2 months Plan of Care Start Date 10/19/18 Plan of Care End Date 12/19/18 Next Visit Focus/Plan Next Note Type Treatment Note Next Visit Plan cone taps onto half [place] around RLE, hip flexor stretch position with balloon volley, aminata disc, SL bridge. address manual restrictions as necessary
--- NOTE | 2018-11-28 11:55 | PT.OTN ---
Current Diagnoses Strain of muscle, fascia and tendon of right hip, initial encounter (11/28/18) Physical Therapy Treatment Note PT-OP-A Visit Information Start: 10/18/18 18:11 Freq: Status: Active Protocol: Document 11/28/18 08:15 AR (Rec: 11/28/18 09:04 AR [email or web address]) Out-Patient Physical Therapy Visit Information Visit Information Visit Type Treatment Note Visit Start Time 08:15 Visit Stop Time 08:55 Total Visit Minutes 40 Visit Number 7 Number of ADMINISTRATIVE SUPPORT ASSOCIATE Visits 0 PT-OP-B Current Condition Start: 10/18/18 18:11 Freq: Status: Active Protocol: Document 10/19/18 16:32 AR (Rec: 10/19/18 17:10 AR [email or web address]) Current Condition History of Current Condition Onset Date 09/25/2018 Current Complaints R groin pain, inc in R knee pain, decreased ROM, impaired balance History of Current Condition Pt fell off roof about 3 weeks ago. He did not go to urgent care until a couple weeks after the incident. Recent imaging shows no fracture or hip OA. Pt reports he has had an increase in pain in his R knee since the fall (hx of TKA , pain prior to fall). He is having pain with walking, mostly in his knee. He is unable to step into a car w/o significant pain and he was previously unable to step into truck. He was able to get into his truck today but had significant pain. Pt reports posterior hip pain while walking which eases with stretching into a small squat range. Pt also reports inc pain in posterior hip with extended sitting. Treatment Goals Patient/Caregiver Goals Increase ROM of RLE to WNL or at least equal to other side. Be able to get into and out of car w/o pain. Prior Functional Status Baseline Function- ADL's Independent Baseline Function- Mobility Independent Personal Factors Other Personal Factors That May Effect previous joint surgeries (L Therapy/Recovery shoulder x2, R shoulder, R TKA ) PT-OP-C Subjective Start: 10/18/18 18:11 Freq: Status: Active Protocol: Document 11/28/18 08:15 AR (Rec: 11/28/18 09:04 AR [email or web address]) OP-PT Subjective Patient Comments Patient Comments Pt reports he is now able to get into his truck, but it is still difficult. He is able to achieve more active hip flexion, but it is still not equal to his L. Pt moved a large bookshelf by himself yesterday, but denied feeling any inc pain d/t this activity . Patient Reported Progress Improving PT-OP-E Functional Tests Start: 10/18/18 18:11 Freq: Status: Active Protocol: Document 10/19/18 16:32 AR (Rec: 10/19/18 17:10 AR [email or web address]) Functional Tests Functional Gait Assessment Score 22/30 Functional Gait Assessment Impairment 20 to <40% Impaired (Score 19- Rating 24) PT-OP-F Manual Assessment Start: 10/18/18 18:11 Freq: Status: Active Protocol: Document 10/19/18 16:32 AR (Rec: 10/19/18 17:10 AR [email or web address]) Manual Assessments Joint Mobility Assessment Joint Mobility Assessment R hip IR and ER: hard end feel with limited ROM PT-OP-G Mobility & Gait Start: 10/18/18 18:11 Freq: Status: Active Protocol: Document 10/19/18 16:32 AR (Rec: 10/19/18 17:10 AR [email or web address]) OP Mobility Evaluation Bed Mobility Rolling pt able to perform independently, but takes significant effort and time to perform Supine to and from Sit pt able to perform independently, but takes significant effort and time to perform Functional Movements Squats demonstrated proper form within small ROM OP Gait Assessment Gait Gait Assistance Required: Independent Gait Deviations General Gait Pattern Antalgic,Lateral Trunk Lean Factors Limiting Gait Function Factors Limiting Gait Function Limited Range of Motion,Pain Stair Climbing Evaluation Evaluation Level of Assist On Stairs Standby Assistance Devices Stair Climbing Assistive Devices Left Railing,Right Railing Technique/Endurance Stair Climbing Direction Ascend and Descend Stair Climbing Technique Step Over Step Number of Steps Climbed 4 Stair Climbing Set # Repetitions (reps) 2 PT-OP-K Range of Motion Start: 10/18/18 18:11 Freq: Status: Active Protocol: Document 10/19/18 16:32 AR (Rec: 10/19/18 17:10 AR [email or web address]) Hip Goniometric Range of Motion Hip Right Active Hip ROM WFL No Testing Position supine (flex), seated (IR/ER) Flexion w/Knee Flexed 70 Internal Rotation 10 External Rotation 33 Left Active Hip ROM WFL No Flexion w/Knee Flexed 110 Internal Rotation 15 External Rotation 25 Knee Goniometric Range of Motion Knee Right Flexion Active (degrees) 120 Left Flexion Active (degrees) 135 PT-OP-M Strength Start: 10/18/18 18:11 Freq: Status: Active Protocol: Document 10/19/18 16:32 AR (Rec: 10/19/18 17:10 AR [email or web address]) Hip Strength Hip Manual Muscle Testing Right Flexion (L2) 2- Poor- Extension (S1) 2 Poor Abduction 4- Good- External Rotation 4+ Good+ Internal Rotation 4+ Good+ Left Flexion (L2) 4 Good Extension (S1) 2+ Poor+ Abduction 4+ Good+ External Rotation 4+ Good+ Internal Rotation 4+ Good+ Knee Strength Knee Manual Muscle Testing Left Flexion (S2) 5 Normal Extension (L3) 5 Normal Right Flexion (S2) 5 Normal Extension (L3) 5 Normal PT-OP-Q Treatments Start: 10/18/18 18:11 Freq: Status: Active Protocol: Document 11/28/18 08:15 AR (Rec: 11/28/18 10:01 AR [email or web address]) Therapeutic Exercises Supine Exercises leg rolls & hold Supine Exercise Name knee and hip extended, roll hip into IR and isometric hold at end range Side right Resistance none Reps/Minutes 5 reps hip IR Supine Exercise Name knees bent, rocking LE in and out for stretch into IR Side right Reps/Minutes 20 reps, 5 sec holds Standing Exercises step ups/taps Standing Exercise Name step up to tap 6 step Side bilateral Resistance 4# Equipment Used ankle weights Reps/Minutes 2x20 reps Manual Therapy Treatment Soft Tissue Mobilization TFL Body Location TFL Mobilization Type Sustained Pressure Intensity/Depth Deep Body Position Supine Comments with hip in IR Joint Mobilizations hip Joint R hip Direction inf with IR bias Grade III Comments with contract relax. inc in ROM. pt educated to do PROM IR at home to maintain range. Neuro Re-Education Treatment Balance Activities aminata disc Details static stance on aminata discs w balloon volley Surface blue & yellow aminata discs Reps/Duration ~50 hits toe taps onto cone Details SLS w/taps onto cone in small star excursion pattern Surface level Equipment 7 stacking cone Comments cued for eccentric control Self-Care/Home Management Treatment Education Patient Education Safety Other Education Pt was encouraged not to move large, heavy objects without help. Pt described the moving process and utilizing many aides to move the bookcase, but was educated on potential risks. PT-OP-R Modalities Start: 10/18/18 18:11 Freq: Status: Active Protocol: Document 10/23/18 14:08 AR (Rec: 10/23/18 14:20 AR [email or web address]) Hot Pack/Cold Pack Treatment Cold Pack Location R anterior hip Patient Position Supine Treatment Duration (minutes) 10 PT-OP-T Assessment and Plan Start: 10/18/18 18:11 Freq: Status: Active Protocol: Document 11/28/18 08:15 AR (Rec: 11/28/18 10:01 AR [email or web address]) Physical Therapy Assessment Goals Walking Short Term Goal (STG) Pt will be able to walk at least 1/4 mile w/o AD, seated rest break or inc in pain no more than 2 points on VAS. STG Duration 11/19/2018 General Assembler Goal (LTG) Pt will be able to walk 1 mile w/o AD, seated rest break or inc in pain no more than 2 point on VAS. LTG Duration 12/19/2018 3 Impairment weakness Short Term Goal (STG) Pt will be compliant with HEP STG Duration 11/19/2018 General Assembler Goal (LTG) Pt will demonstrate 5/5 MMT strength to be able to accomplish daily activities. LTG Duration 12/19/2018 2 Impairment pain Short Term Goal (STG) Pt will be able to step onto a [address] w/o pain in R hip or knee. STG Duration 11/19/2018 Snf Goal (LTG) Pt will be able to step into pickup truck w/o pain in R hip . LTG Duration 12/19/2018 1 Impairment decreased dynamic balance Snf Goal (LTG) Pt will inc DGI by at least 2 points to dec fall risk Assessment Summary Assessment Pt has been able to return to some functional activities that involved active hip flexion, but is still noticing limitations. Pt was encouraged to begin walking more and assess pain levels. Pt still presents with some dec stability, clarita on RLE but is alble to control eccentric lowering of LLE when cued. Physical Therapy Plan Frequency and Duration Frequency of Treatment 1-2x/wk Duration of Treatment 2 months Plan of Care Start Date 10/19/18 Plan of Care End Date 12/19/18 Next Visit Focus/Plan Next Note Type Treatment Note Next Visit Plan cone taps onto half [place] around RLE, hip flexor stretch position with balloon volley, aminata disc, SL bridge is appropriate. address manual restrictions as necessary
--- NOTE | 2018-12-04 11:37 | PT-OP ANOTE ---
Pt was called and left a message re: no show and next scheduled appointment.
--- NOTE | 2018-12-06 10:40 | PT.OTN ---
Current Diagnoses Strain of muscle, fascia and tendon of right hip, initial encounter (12/06/18) Physical Therapy Treatment Note PT-OP-A Visit Information Start: 10/18/18 18:11 Freq: Status: Active Protocol: Document 12/06/18 10:28 [facility] (Rec: 12/06/18 10:39 [facility] [id number]) Out-Patient Physical Therapy Visit Information Visit Information Visit Type Treatment Note Visit Start Time 09:46 Visit Stop Time 10:27 Total Visit Minutes 41 Visit Number 8 Number of ADMINISTRATION SPECIALIST Visits 0 PT-OP-B Current Condition Start: 10/18/18 18:11 Freq: Status: Active Protocol: Document 10/19/18 16:32 AR (Rec: 10/19/18 17:10 AR [email or web address]) Current Condition History of Current Condition Onset Date 09/25/2018 Current Complaints R groin pain, inc in R knee pain, decreased ROM, impaired balance History of Current Condition Pt fell off roof about 3 weeks ago. He did not go to urgent care until a couple weeks after the incident. Recent imaging shows no fracture or hip OA. Pt reports he has had an increase in pain in his R knee since the fall (hx of TKA , pain prior to fall). He is having pain with walking, mostly in his knee. He is unable to step into a car w/o significant pain and he was previously unable to step into truck. He was able to get into his truck today but had significant pain. Pt reports posterior hip pain while walking which eases with stretching into a small squat range. Pt also reports inc pain in posterior hip with extended sitting. Treatment Goals Patient/Caregiver Goals Increase ROM of RLE to WNL or at least equal to other side. Be able to get into and out of car w/o pain. Prior Functional Status Baseline Function- ADL's Independent Baseline Function- Mobility Independent Personal Factors Other Personal Factors That May Effect previous joint surgeries (L Therapy/Recovery shoulder x2, R shoulder, R TKA ) PT-OP-C Subjective Start: 10/18/18 18:11 Freq: Status: Active Protocol: Document 12/06/18 10:28 [facility] (Rec: 12/06/18 10:39 [facility] [id number]) OP-PT Subjective Patient Comments Patient Comments Pt reports he has been doing his balance exercises PT-OP-E Functional Tests Start: 10/18/18 18:11 Freq: Status: Active Protocol: Document 10/19/18 16:32 AR (Rec: 10/19/18 17:10 AR [email or web address]) Functional Tests Functional Gait Assessment Score 22/30 Functional Gait Assessment Impairment 20 to <40% Impaired (Score 19- Rating 24) PT-OP-F Manual Assessment Start: 10/18/18 18:11 Freq: Status: Active Protocol: Document 10/19/18 16:32 AR (Rec: 10/19/18 17:10 AR [email or web address]) Manual Assessments Joint Mobility Assessment Joint Mobility Assessment R hip IR and ER: hard end feel with limited ROM PT-OP-G Mobility & Gait Start: 10/18/18 18:11 Freq: Status: Active Protocol: Document 10/19/18 16:32 AR (Rec: 10/19/18 17:10 AR [email or web address]) OP Mobility Evaluation Bed Mobility Rolling pt able to perform independently, but takes significant effort and time to perform Supine to and from Sit pt able to perform independently, but takes significant effort and time to perform Functional Movements Squats demonstrated proper form within small ROM OP Gait Assessment Gait Gait Assistance Required: Independent Gait Deviations General Gait Pattern Antalgic,Lateral Trunk Lean Factors Limiting Gait Function Factors Limiting Gait Function Limited Range of Motion,Pain Stair Climbing Evaluation Evaluation Level of Assist On Stairs Standby Assistance Devices Stair Climbing Assistive Devices Left Railing,Right Railing Technique/Endurance Stair Climbing Direction Ascend and Descend Stair Climbing Technique Step Over Step Number of Steps Climbed 4 Stair Climbing Set # Repetitions (reps) 2 PT-OP-K Range of Motion Start: 10/18/18 18:11 Freq: Status: Active Protocol: Document 10/19/18 16:32 AR (Rec: 10/19/18 17:10 AR [email or web address]) Hip Goniometric Range of Motion Hip Right Active Hip ROM WFL No Testing Position supine (flex), seated (IR/ER) Flexion w/Knee Flexed 70 Internal Rotation 10 External Rotation 33 Left Active Hip ROM WFL No Flexion w/Knee Flexed 110 Internal Rotation 15 External Rotation 25 Knee Goniometric Range of Motion Knee Right Flexion Active (degrees) 120 Left Flexion Active (degrees) 135 PT-OP-M Strength Start: 10/18/18 18:11 Freq: Status: Active Protocol: Document 10/19/18 16:32 AR (Rec: 10/19/18 17:10 AR [email or web address]) Hip Strength Hip Manual Muscle Testing Right Flexion (L2) 2- Poor- Extension (S1) 2 Poor Abduction 4- Good- External Rotation 4+ Good+ Internal Rotation 4+ Good+ Left Flexion (L2) 4 Good Extension (S1) 2+ Poor+ Abduction 4+ Good+ External Rotation 4+ Good+ Internal Rotation 4+ Good+ Knee Strength Knee Manual Muscle Testing Left Flexion (S2) 5 Normal Extension (L3) 5 Normal Right Flexion (S2) 5 Normal Extension (L3) 5 Normal PT-OP-Q Treatments Start: 10/18/18 18:11 Freq: Status: Active Protocol: Document 12/06/18 10:28 [facility] (Rec: 12/06/18 10:39 [facility] [id number]) Gym Equipment Shuttle Balance red clips Details fwd & side: WBOS & NBOS; fwd staggered stance Therapeutic Ball seated Exercise Details marches Body Position Sitting Reps/Duration 20 B Therapeutic Exercises Supine Exercises hip flex isometric Supine Exercise Name hip flex AROM to allowed range then PROM then eccentric lower Side right Reps/Minutes 20 Manual Therapy Treatment Soft Tissue Mobilization hip flexors Body Location hip flexors Mobilization Type Strumming,Sustained Pressure Intensity/Depth Moderate Body Position Supine Comments w gentle hip IR/ER Joint Mobilizations hip Joint R hip Direction inf & distraction Grade III Comments with contract relax. inc in ROM. pt educated to do PROM IR at home to maintain range. Neuro Re-Education Treatment Balance Activities bosu Details step ups then balance 3 sec Reps/Duration 15 B PT-OP-R Modalities Start: 10/18/18 18:11 Freq: Status: Active Protocol: Document 10/23/18 14:08 AR (Rec: 10/23/18 14:20 AR [email or web address]) Hot Pack/Cold Pack Treatment Cold Pack Location R anterior hip Patient Position Supine Treatment Duration (minutes) 10 PT-OP-T Assessment and Plan Start: 10/18/18 18:11 Freq: Status: Active Protocol: Document 12/06/18 10:28 [facility] (Rec: 12/06/18 10:39 [facility] [id number]) Physical Therapy Assessment Goals Walking Short Term Goal (STG) Pt will be able to walk at least 1/4 mile w/o AD, seated rest break or inc in pain no more than 2 points on VAS. STG Duration 11/19/2018 Residential Goal (LTG) Pt will be able to walk 1 mile w/o AD, seated rest break or inc in pain no more than 2 point on VAS. LTG Duration 12/19/2018 3 Impairment weakness Short Term Goal (STG) Pt will be compliant with HEP STG Duration 11/19/2018 Residential Goal (LTG) Pt will demonstrate 5/5 MMT strength to be able to accomplish daily activities. LTG Duration 12/19/2018 2 Impairment pain Short Term Goal (STG) Pt will be able to step onto a [address] w/o pain in R hip or knee. STG Duration 11/19/2018 Lead Electrical Engineer Goal (LTG) Pt will be able to step into pickup truck w/o pain in R hip . LTG Duration 12/19/2018 1 Impairment decreased dynamic balance Residential Goal (LTG) Pt will inc DGI by at least 2 points to dec fall risk Assessment Summary Assessment Pt able to slowly improve flex with passive flex and eccentric contorlling. Was given this for HEP. IMproving with balance on unstable surfaces Physical Therapy Plan Frequency and Duration Frequency of Treatment 1-2x/wk Duration of Treatment 2 months Plan of Care Start Date 10/19/18 Plan of Care End Date 12/19/18 Next Visit Focus/Plan Next Note Type Progress Note Next Visit Plan cone taps onto half [place] around RLE, hip flexor stretch position with balloon volley, aminata disc, SL bridge is appropriate. address manual restrictions as necessary
--- NOTE | 2018-12-11 12:13 | PT.OTN ---
Current Diagnoses Strain of muscle, fascia and tendon of right hip, initial encounter (12/11/18) Physical Therapy Treatment Note PT-OP-A Visit Information Start: 10/18/18 18:11 Freq: Status: Active Protocol: Document 12/11/18 12:05 [facility] (Rec: 12/11/18 12:13 [facility] [email or web address]) Out-Patient Physical Therapy Visit Information Visit Information Visit Type Treatment Note Visit Start Time 08:15 Visit Stop Time 08:57 Total Visit Minutes 42 Visit Number 9 Number of UNIT SECY Visits 0 PT-OP-B Current Condition Start: 10/18/18 18:11 Freq: Status: Active Protocol: Document 10/19/18 16:32 [facility] (Rec: 10/19/18 17:10 [facility] [email or web address]) Current Condition History of Current Condition Onset Date 09/25/2018 Current Complaints R groin pain, inc in R knee pain, decreased ROM, impaired balance History of Current Condition Pt fell off roof about 3 weeks ago. He did not go to urgent care until a couple weeks after the incident. Recent imaging shows no fracture or hip OA. Pt reports he has had an increase in pain in his R knee since the fall (hx of TKA , pain prior to fall). He is having pain with walking, mostly in his knee. He is unable to step into a car w/o significant pain and he was previously unable to step into truck. He was able to get into his truck today but had significant pain. Pt reports posterior hip pain while walking which eases with stretching into a small squat range. Pt also reports inc pain in posterior hip with extended sitting. Treatment Goals Patient/Caregiver Goals Increase ROM of RLE to WNL or at least equal to other side. Be able to get into and out of car w/o pain. Prior Functional Status Baseline Function- ADL's Independent Baseline Function- Mobility Independent Personal Factors Other Personal Factors That May Effect previous joint surgeries (L Therapy/Recovery shoulder x2, R shoulder, R TKA ) PT-OP-C Subjective Start: 10/18/18 18:11 Freq: Status: Active Protocol: Document 12/11/18 12:05 [facility] (Rec: 12/11/18 12:13 [facility] [email or web address]) OP-PT Subjective Patient Comments Patient Comments Pt reports he walked 15 min today. He noticed pain in hips and glutes PT-OP-E Functional Tests Start: 10/18/18 18:11 Freq: Status: Active Protocol: Document 10/19/18 16:32 [facility] (Rec: 10/19/18 17:10 [facility] [email or web address]) Functional Tests Functional Gait Assessment Score 22/30 Functional Gait Assessment Impairment 20 to <40% Impaired (Score 19- Rating 24) PT-OP-F Manual Assessment Start: 10/18/18 18:11 Freq: Status: Active Protocol: Document 10/19/18 16:32 [facility] (Rec: 10/19/18 17:10 [facility] [email or web address]) Manual Assessments Joint Mobility Assessment Joint Mobility Assessment R hip IR and ER: hard end feel with limited ROM PT-OP-G Mobility & Gait Start: 10/18/18 18:11 Freq: Status: Active Protocol: Document 10/19/18 16:32 [facility] (Rec: 10/19/18 17:10 [facility] [email or web address]) OP Mobility Evaluation Bed Mobility Rolling pt able to perform independently, but takes significant effort and time to perform Supine to and from Sit pt able to perform independently, but takes significant effort and time to perform Functional Movements Squats demonstrated proper form within small ROM OP Gait Assessment Gait Gait Assistance Required: Independent Gait Deviations General Gait Pattern Antalgic,Lateral Trunk Lean Factors Limiting Gait Function Factors Limiting Gait Function Limited Range of Motion,Pain Stair Climbing Evaluation Evaluation Level of Assist On Stairs Standby Assistance Devices Stair Climbing Assistive Devices Left Railing,Right Railing Technique/Endurance Stair Climbing Direction Ascend and Descend Stair Climbing Technique Step Over Step Number of Steps Climbed 4 Stair Climbing Set # Repetitions (reps) 2 PT-OP-K Range of Motion Start: 10/18/18 18:11 Freq: Status: Active Protocol: Document 10/19/18 16:32 [facility] (Rec: 10/19/18 17:10 [facility] [email or web address]) Hip Goniometric Range of Motion Hip Right Active Hip ROM WFL No Testing Position supine (flex), seated (IR/ER) Flexion w/Knee Flexed 70 Internal Rotation 10 External Rotation 33 Left Active Hip ROM WFL No Flexion w/Knee Flexed 110 Internal Rotation 15 External Rotation 25 Knee Goniometric Range of Motion Knee Right Flexion Active (degrees) 120 Left Flexion Active (degrees) 135 PT-OP-M Strength Start: 10/18/18 18:11 Freq: Status: Active Protocol: Document 10/19/18 16:32 [facility] (Rec: 10/19/18 17:10 [facility] [email or web address]) Hip Strength Hip Manual Muscle Testing Right Flexion (L2) 2- Poor- Extension (S1) 2 Poor Abduction 4- Good- External Rotation 4+ Good+ Internal Rotation 4+ Good+ Left Flexion (L2) 4 Good Extension (S1) 2+ Poor+ Abduction 4+ Good+ External Rotation 4+ Good+ Internal Rotation 4+ Good+ Knee Strength Knee Manual Muscle Testing Left Flexion (S2) 5 Normal Extension (L3) 5 Normal Right Flexion (S2) 5 Normal Extension (L3) 5 Normal PT-OP-Q Treatments Start: 10/18/18 18:11 Freq: Status: Active Protocol: Document 12/11/18 12:05 [facility] (Rec: 12/11/18 12:13 [facility] [email or web address]) Therapeutic Exercises Supine Exercises eccentric hip flexion Supine Exercise Name hip flex AROM to allowed range then PROM then eccentric lower Side right Reps/Minutes 5 Standing Exercises marching in mirro Standing Exercise Name in place with focus on full hip flex Side bilateral Reps/Minutes 15 Therapeutic Activity Therapeutic Activity posture Name upright posture with foot & knees neutral Manual Therapy Treatment Soft Tissue Mobilization hip flexors Body Location hip flexors Mobilization Type Strumming,Sustained Pressure Intensity/Depth Moderate Body Position Supine Comments w gentle hip IR/ER Joint Mobilizations hip Joint R hip Direction inf & distraction Grade III Comments with contract relax. inc in ROM. Neuro Re-Education Treatment Balance Activities aminata disc Details staggered stance Surface blue & yellow aminata discs toe taps onto cone Details SLS w/taps onto cone in 1/2 [place] excursion pattern Surface level Equipment 5 stacking cone Reps/Duration 6 Comments cued for eccentric control bosu Details step ups then balance 3 sec Reps/Duration 12 B Tandem Details staggered stance for R hip flexor stretch w/balloon volley Self-Care/Home Management Treatment Education Other Education walking & encouragmeent to inc walking frequency PT-OP-R Modalities Start: 10/18/18 18:11 Freq: Status: Active Protocol: Document 10/23/18 14:08 [facility] (Rec: 10/23/18 14:20 [facility] [email or web address]) Hot Pack/Cold Pack Treatment Cold Pack Location R anterior hip Patient Position Supine Treatment Duration (minutes) 10 PT-OP-T Assessment and Plan Start: 10/18/18 18:11 Freq: Status: Active Protocol: Document 12/11/18 12:05 [facility] (Rec: 12/11/18 12:13 [facility] [email or web address]) Physical Therapy Assessment Goals Walking Short Term Goal (STG) Pt will be able to walk at least 1/4 mile w/o AD, seated rest break or inc in pain no more than 2 points on VAS. STG Duration 11/19/2018 Repair Manager Goal (LTG) Pt will be able to walk 1 mile w/o AD, seated rest break or inc in pain no more than 2 point on VAS. LTG Duration 12/19/2018 3 Impairment weakness Short Term Goal (STG) Pt will be compliant with HEP STG Duration 11/19/2018 Repair Manager Goal (LTG) Pt will demonstrate 5/5 MMT strength to be able to accomplish daily activities. LTG Duration 12/19/2018 2 Impairment pain Short Term Goal (STG) Pt will be able to step onto a [address] w/o pain in R hip or knee. STG Duration 11/19/2018 [facility] Goal (LTG) Pt will be able to step into pickup truck w/o pain in R hip . LTG Duration 12/19/2018 1 Impairment decreased dynamic balance [facility] Goal (LTG) Pt will inc DGI by at least 2 points to dec fall risk Assessment Summary Assessment Discussed with pt importance of cont walking and discussed doing small increments of inc walking with doing 2 bouts at separate times in the day to slowly build up. Discuss how he doesn't use hip ext except for push off so it will not improve functionally unless he inc his use.Pt improved balance on bosu today. He was challenged by balancing in staggered stance on dynadiscs with R leg back. Physical Therapy Plan Frequency and Duration Frequency of Treatment 1-2x/wk Duration of Treatment 2 months Plan of Care Start Date 10/19/18 Plan of Care End Date 12/19/18 Next Visit Focus/Plan Next Note Type Progress Note Next Visit Plan cont to work on hip flexor strengthening into larger ranges
--- NOTE | 2018-12-13 12:15 | PT.OTN ---
Current Diagnoses Strain of muscle, fascia and tendon of right hip, initial encounter (12/13/18) Physical Therapy Treatment Note PT-OP-A Visit Information Start: 10/18/18 18:11 Freq: Status: Active Protocol: Document 12/13/18 09:21 [facility] (Rec: 12/13/18 12:15 [facility] [id number]) Out-Patient Physical Therapy Visit Information Visit Information Visit Type Progress Note Visit Start Time 09:03 Visit Stop Time 09:43 Total Visit Minutes 40 Visit Number 10 Number of HELPER TEACHER Visits 0 PT-OP-B Current Condition Start: 10/18/18 18:11 Freq: Status: Active Protocol: Document 10/19/18 16:32 [facility] (Rec: 10/19/18 17:10 [facility] [email or web address]) Current Condition History of Current Condition Onset Date 09/25/2018 Current Complaints R groin pain, inc in R knee pain, decreased ROM, impaired balance History of Current Condition Pt fell off roof about 3 weeks ago. He did not go to urgent care until a couple weeks after the incident. Recent imaging shows no fracture or hip OA. Pt reports he has had an increase in pain in his R knee since the fall (hx of TKA , pain prior to fall). He is having pain with walking, mostly in his knee. He is unable to step into a car w/o significant pain and he was previously unable to step into truck. He was able to get into his truck today but had significant pain. Pt reports posterior hip pain while walking which eases with stretching into a small squat range. Pt also reports inc pain in posterior hip with extended sitting. Treatment Goals Patient/Caregiver Goals Increase ROM of RLE to WNL or at least equal to other side. Be able to get into and out of car w/o pain. Prior Functional Status Baseline Function- ADL's Independent Baseline Function- Mobility Independent Personal Factors Other Personal Factors That May Effect previous joint surgeries (L Therapy/Recovery shoulder x2, R shoulder, R TKA ) PT-OP-C Subjective Start: 10/18/18 18:11 Freq: Status: Active Protocol: Document 12/13/18 09:21 [facility] (Rec: 12/13/18 12:15 [facility] [id number]) OP-PT Subjective Patient Comments Patient Comments Pt reports he notices his glutes with exercises PT-OP-E Functional Tests Start: 10/18/18 18:11 Freq: Status: Active Protocol: Document 10/19/18 16:32 [facility] (Rec: 10/19/18 17:10 [facility] [email or web address]) Functional Tests Functional Gait Assessment Score 22/30 Functional Gait Assessment Impairment 20 to <40% Impaired (Score 19- Rating 24) PT-OP-F Manual Assessment Start: 10/18/18 18:11 Freq: Status: Active Protocol: Document 10/19/18 16:32 [facility] (Rec: 10/19/18 17:10 [facility] [email or web address]) Manual Assessments Joint Mobility Assessment Joint Mobility Assessment R hip IR and ER: hard end feel with limited ROM PT-OP-G Mobility & Gait Start: 10/18/18 18:11 Freq: Status: Active Protocol: Document 10/19/18 16:32 [facility] (Rec: 10/19/18 17:10 [facility] [email or web address]) OP Mobility Evaluation Bed Mobility Rolling pt able to perform independently, but takes significant effort and time to perform Supine to and from Sit pt able to perform independently, but takes significant effort and time to perform Functional Movements Squats demonstrated proper form within small ROM OP Gait Assessment Gait Gait Assistance Required: Independent Gait Deviations General Gait Pattern Antalgic,Lateral Trunk Lean Factors Limiting Gait Function Factors Limiting Gait Function Limited Range of Motion,Pain Stair Climbing Evaluation Evaluation Level of Assist On Stairs Standby Assistance Devices Stair Climbing Assistive Devices Left Railing,Right Railing Technique/Endurance Stair Climbing Direction Ascend and Descend Stair Climbing Technique Step Over Step Number of Steps Climbed 4 Stair Climbing Set # Repetitions (reps) 2 PT-OP-K Range of Motion Start: 10/18/18 18:11 Freq: Status: Active Protocol: Document 10/19/18 16:32 [facility] (Rec: 10/19/18 17:10 [facility] [email or web address]) Hip Goniometric Range of Motion Hip Right Active Hip ROM WFL No Testing Position supine (flex), seated (IR/ER) Flexion w/Knee Flexed 70 Internal Rotation 10 External Rotation 33 Left Active Hip ROM WFL No Flexion w/Knee Flexed 110 Internal Rotation 15 External Rotation 25 Knee Goniometric Range of Motion Knee Right Flexion Active (degrees) 120 Left Flexion Active (degrees) 135 PT-OP-M Strength Start: 10/18/18 18:11 Freq: Status: Active Protocol: Document 12/13/18 09:21 [facility] (Rec: 12/13/18 12:15 [facility] [id number]) Hip Strength Hip Manual Muscle Testing Right Flexion (L2) 4- Good- Extension (S1) 3+ Fair+ Abduction 3+ Fair+ External Rotation 5 Normal Internal Rotation 5 Normal Left Flexion (L2) 4+ Good+ Extension (S1) 3+ Fair+ Abduction 3+ Fair+ External Rotation 5 Normal Internal Rotation 5 Normal Knee Strength Knee Manual Muscle Testing Left Flexion (S2) 4+ Good+ Extension (L3) 5 Normal Right Flexion (S2) 4+ Good+ Extension (L3) 4+ Good+ PT-OP-Q Treatments Start: 10/18/18 18:11 Freq: Status: Active Protocol: Document 12/13/18 09:21 [facility] (Rec: 12/13/18 12:15 [facility] [id number]) Therapeutic Exercises Supine Exercises eccentric hip flexion Supine Exercise Name hip flex AROM to allowed range then PROM then eccentric lower Side right Reps/Minutes 5 Standing Exercises Step Ups Standing Exercise Name onto 8 in step fwd & side 5 in steps B Reps/Minutes 10 ea marching in mirro Standing Exercise Name to tap on high step Side bilateral Reps/Minutes 15 Manual Therapy Treatment Soft Tissue Mobilization hip flexors Body Location hip flexors Mobilization Type Strumming,Sustained Pressure Intensity/Depth Moderate Body Position Supine Comments w gentle hip IR/ER Joint Mobilizations hip Joint R hip Direction inf & distraction & lat gapping Grade III Comments with contract relax. inc in ROM. PT-OP-R Modalities Start: 10/18/18 18:11 Freq: Status: Active Protocol: Document 10/23/18 14:08 [facility] (Rec: 10/23/18 14:20 [facility] [email or web address]) Hot Pack/Cold Pack Treatment Cold Pack Location R anterior hip Patient Position Supine Treatment Duration (minutes) 10 PT-OP-T Assessment and Plan Start: 10/18/18 18:11 Freq: Status: Active Protocol: Document 12/13/18 09:21 [facility] (Rec: 12/13/18 12:15 [facility] [id number]) Physical Therapy Assessment Goals Walking Short Term Goal (STG) Pt will be able to walk at least 1/4 mile w/o AD, seated rest break or inc in pain no more than 2 points on VAS. 10/2 pt able to walk 15 min STG Duration 12/26/18 Retirement Goal (LTG) Pt will be able to walk 1 mile w/o AD, seated rest break or inc in pain no more than 2 point on VAS. LTG Duration 02/12/19 3 Impairment weakness Short Term Goal (STG) Pt will be compliant with HEP STG Duration achieved [employer] Senior Recruiter Goal (LTG) Pt will demonstrate 5/5 MMT strength to be able to accomplish daily activities. 10/2 improving LTG Duration 02/18/2019 2 Impairment pain Short Term Goal (STG) Pt will be able to step onto a [address] w/o pain in R hip or knee. STG Duration achieved [employer] Senior Recruiter Goal (LTG) Pt will be able to step into pickup truck w/o pain in R hip . [id number] but has to do it quickly LTG Duration 01/19/2019 1 Impairment decreased dynamic balance Retirement Goal (LTG) Pt will inc DGI by at least 2 points to dec fall risk LTG Duration 02/12/19 Assessment Summary Assessment Pt is improving with strength and ROM of R hip but cont to be limited in his functioal mobiliy. He is working on HEP and able to start small walks and has been encouraged on more. Physical Therapy Plan Frequency and Duration Frequency of Treatment 1-2x/wk Duration of Treatment 2 months Plan of Care Start Date 12/13/18 Plan of Care End Date 02/12/19 Therapeutic Interventions Therapeutic Interventions Aquatic Therapy,Balance Training,Gait Training,Home Exercise Program,Joint Mobilizations,Manual Therapy, Neuromuscular Re-education, Patient/Caregiver Education, Self-Care/Home Management,Soft Tissue Mobilization,Taping, Therapeutic Activities, Therapeutic Exercises Modalities Cold Pack/Ice Massage,Electric Stimulation,Hot Packs, Infrared Therapy,Iontophoresis ,Ultrasound Next Visit Focus/Plan Next Note Type Treatment Note Next Visit Plan cont to work on hip flexor strengthening into larger ranges
--- NOTE | 2018-12-13 12:16 | PT.OPPOC ---
Current Diagnoses Strain of muscle, fascia and tendon of right hip, initial encounter (12/13/18) Visit Care Team Role Provider Type Sourav Gamboa MD Family Provider Non-Staff Primary Care Provider Specialty: Medical Address: [address] [facility], [place], [address] Email: Papa Bronson MD Attending Provider Physician Specialty: Orthopedic Surgery Address: [address] [place] [address], [place], [address] Email: [email or web address] Plan Of Care PT-OP-T Assessment and Plan Start: 10/18/18 18:11 Freq: Status: Active Protocol: Document 12/13/18 09:21 [facility] (Rec: 12/13/18 12:15 [facility] [id number]) Physical Therapy Assessment Goals Walking Short Term Goal (STG) Pt will be able to walk at least 1/4 mile w/o AD, seated rest break or inc in pain no more than 2 points on VAS. 10/2 pt able to walk 15 min STG Duration 12/26/18 As400 Analyst Goal (LTG) Pt will be able to walk 1 mile w/o AD, seated rest break or inc in pain no more than 2 point on VAS. LTG Duration 02/12/19 3 Impairment weakness Short Term Goal (STG) Pt will be compliant with HEP STG Duration achieved As400 Analyst Goal (LTG) Pt will demonstrate 5/5 MMT strength to be able to accomplish daily activities. 102 improving LTG Duration 02/18/2019 2 Impairment pain Short Term Goal (STG) Pt will be able to step onto a [address] w/o pain in R hip or knee. STG Duration achieved As400 Analyst Goal (LTG) Pt will be able to step into pickup truck w/o pain in R hip . [id number] but has to do it quickly LTG Duration 01/19/2019 1 Impairment decreased dynamic balance As400 Analyst Goal (LTG) Pt will inc DGI by at least 2 points to dec fall risk LTG Duration 02/12/19 Assessment Summary Assessment Pt is improving with strength and ROM of R hip but cont to be limited in his functioal mobiliy. He is working on HEP and able to start small walks and has been encouraged on more. Physical Therapy Plan Frequency and Duration Frequency of Treatment 1-2x/wk Duration of Treatment 2 months Plan of Care Start Date 12/13/18 Plan of Care End Date 02/12/19 Therapeutic Interventions Therapeutic Interventions Aquatic Therapy,Balance Training,Gait Training,Home Exercise Program,Joint Mobilizations,Manual Therapy, Neuromuscular Re-education, Patient/Caregiver Education, Self-Care/Home Management,Soft Tissue Mobilization,Taping, Therapeutic Activities, Therapeutic Exercises Modalities Cold Pack/Ice Massage,Electric Stimulation,Hot Packs, Infrared Therapy,Iontophoresis ,Ultrasound Next Visit Focus/Plan Next Note Type Treatment Note Next Visit Plan cont to work on hip flexor strengthening into larger ranges Plan of Care Dates Plan of Care Start Date 12/13/18 Plan of Care End Date 02/12/19
--- NOTE | 2018-12-18 09:07 | PT.OTN ---
Current Diagnoses Strain of muscle, fascia and tendon of right hip, initial encounter (12/18/18) Physical Therapy Treatment Note PT-OP-A Visit Information Start: 10/18/18 18:11 Freq: Status: Active Protocol: Document 12/18/18 08:11 [facility] (Rec: 12/18/18 09:07 [facility] [id number]) Out-Patient Physical Therapy Visit Information Visit Information Visit Type Treatment Note Visit Start Time 08:15 Visit Stop Time 08:53 Total Visit Minutes 38 Visit Number 11 Number of SPREADING MACHINE OPERATOR Visits 0 PT-OP-B Current Condition Start: 10/18/18 18:11 Freq: Status: Active Protocol: Document 10/19/18 16:32 [facility] (Rec: 10/19/18 17:10 [facility] [email or web address]) Current Condition History of Current Condition Onset Date 09/25/2018 Current Complaints R groin pain, inc in R knee pain, decreased ROM, impaired balance History of Current Condition Pt fell off roof about 3 weeks ago. He did not go to urgent care until a couple weeks after the incident. Recent imaging shows no fracture or hip OA. Pt reports he has had an increase in pain in his R knee since the fall (hx of TKA , pain prior to fall). He is having pain with walking, mostly in his knee. He is unable to step into a car w/o significant pain and he was previously unable to step into truck. He was able to get into his truck today but had significant pain. Pt reports posterior hip pain while walking which eases with stretching into a small squat range. Pt also reports inc pain in posterior hip with extended sitting. Treatment Goals Patient/Caregiver Goals Increase ROM of RLE to WNL or at least equal to other side. Be able to get into and out of car w/o pain. Prior Functional Status Baseline Function- ADL's Independent Baseline Function- Mobility Independent Personal Factors Other Personal Factors That May Effect previous joint surgeries (L Therapy/Recovery shoulder x2, R shoulder, R TKA ) PT-OP-C Subjective Start: 10/18/18 18:11 Freq: Status: Active Protocol: Document 12/18/18 08:11 [facility] (Rec: 12/18/18 09:07 [facility] [id number]) OP-PT Subjective Patient Comments Patient Comments Pt reports compliance. He has started walks but gets tight in his hip so stops PT-OP-E Functional Tests Start: 10/18/18 18:11 Freq: Status: Active Protocol: Document 10/19/18 16:32 [facility] (Rec: 10/19/18 17:10 [facility] [email or web address]) Functional Tests Functional Gait Assessment Score 22/30 Functional Gait Assessment Impairment 20 to <40% Impaired (Score 19- Rating 24) PT-OP-F Manual Assessment Start: 10/18/18 18:11 Freq: Status: Active Protocol: Document 10/19/18 16:32 [facility] (Rec: 10/19/18 17:10 [facility] [email or web address]) Manual Assessments Joint Mobility Assessment Joint Mobility Assessment R hip IR and ER: hard end feel with limited ROM PT-OP-G Mobility & Gait Start: 10/18/18 18:11 Freq: Status: Active Protocol: Document 10/19/18 16:32 [facility] (Rec: 10/19/18 17:10 AR [email or web address]) OP Mobility Evaluation Bed Mobility Rolling pt able to perform independently, but takes significant effort and time to perform Supine to and from Sit pt able to perform independently, but takes significant effort and time to perform Functional Movements Squats demonstrated proper form within small ROM OP Gait Assessment Gait Gait Assistance Required: Independent Gait Deviations General Gait Pattern Antalgic,Lateral Trunk Lean Factors Limiting Gait Function Factors Limiting Gait Function Limited Range of Motion,Pain Stair Climbing Evaluation Evaluation Level of Assist On Stairs Standby Assistance Devices Stair Climbing Assistive Devices Left Railing,Right Railing Technique/Endurance Stair Climbing Direction Ascend and Descend Stair Climbing Technique Step Over Step Number of Steps Climbed 4 Stair Climbing Set # Repetitions (reps) 2 PT-OP-K Range of Motion Start: 10/18/18 18:11 Freq: Status: Active Protocol: Document 10/19/18 16:32 [facility] (Rec: 10/19/18 17:10 AR [email or web address]) Hip Goniometric Range of Motion Hip Right Active Hip ROM WFL No Testing Position supine (flex), seated (IR/ER) Flexion w/Knee Flexed 70 Internal Rotation 10 External Rotation 33 Left Active Hip ROM WFL No Flexion w/Knee Flexed 110 Internal Rotation 15 External Rotation 25 Knee Goniometric Range of Motion Knee Right Flexion Active (degrees) 120 Left Flexion Active (degrees) 135 PT-OP-M Strength Start: 10/18/18 18:11 Freq: Status: Active Protocol: Document 12/13/18 09:21 [facility] (Rec: 12/13/18 12:15 [facility] [id number]) Hip Strength Hip Manual Muscle Testing Right Flexion (L2) 4- Good- Extension (S1) 3+ Fair+ Abduction 3+ Fair+ External Rotation 5 Normal Internal Rotation 5 Normal Left Flexion (L2) 4+ Good+ Extension (S1) 3+ Fair+ Abduction 3+ Fair+ External Rotation 5 Normal Internal Rotation 5 Normal Knee Strength Knee Manual Muscle Testing Left Flexion (S2) 4+ Good+ Extension (L3) 5 Normal Right Flexion (S2) 4+ Good+ Extension (L3) 4+ Good+ PT-OP-Q Treatments Start: 10/18/18 18:11 Freq: Status: Active Protocol: Document 12/18/18 08:11 [facility] (Rec: 12/18/18 09:07 [facility] [id number]) Gym Equipment Shuttle Balance red clips Comments fwd: WBOS & NBOS with head turns, staggered stance B side: WBOS & NBOS & staggered stance B Therapeutic Exercises Standing Exercises resisted hip flexion Standing Exercise Name onto 16 in step tap Side bilateral Equipment Used 2# Reps/Minutes 12 side stepping Side bilateral Equipment Used yellow Reps/Minutes 2x20ft ea Comments side steping & fwd/back walking Manual Therapy Treatment Joint Mobilizations hip Joint R hip Direction post, inf & distraction Grade III Comments with contract relax. inc in ROM. Neuro Re-Education Treatment Balance Activities hurdles Details fwd/back & side/side Reps/Duration [address] toe taps onto cone Details SLS w/taps onto cone in 1/2 wrangell excursion pattern Surface level Equipment 5 stacking cone Reps/Duration 6 Comments cued for eccentric control PT-OP-R Modalities Start: 10/18/18 18:11 Freq: Status: Active Protocol: Document 10/23/18 14:08 [facility] (Rec: 10/23/18 14:20 [facility] [email or web address]) Hot Pack/Cold Pack Treatment Cold Pack Location R anterior hip Patient Position Supine Treatment Duration (minutes) 10 PT-OP-T Assessment and Plan Start: 10/18/18 18:11 Freq: Status: Active Protocol: Document 12/18/18 08:11 [facility] (Rec: 12/18/18 09:07 [facility] [id number]) Physical Therapy Assessment Goals Walking Short Term Goal (STG) Pt will be able to walk at least 1/4 mile w/o AD, seated rest break or inc in pain no more than 2 points on VAS. 12/13 pt able to walk 15 min STG Duration 12/26/18 [employer] Goal (LTG) Pt will be able to walk 1 mile w/o AD, seated rest break or inc in pain no more than 2 point on VAS. LTG Duration 02/12/19 3 Impairment weakness Short Term Goal (STG) Pt will be compliant with HEP STG Duration achieved Detention Goal (LTG) Pt will demonstrate 5/5 MMT strength to be able to accomplish daily activities. 12/13 improving LTG Duration 02/18/2019 2 Impairment pain Short Term Goal (STG) Pt will be able to step onto a [address] w/o pain in R hip or knee. STG Duration achieved Detention Goal (LTG) Pt will be able to step into pickup truck w/o pain in R hip . [id number] but has to do it quickly LTG Duration 01/19/2019 1 Impairment decreased dynamic balance Detention Goal (LTG) Pt will inc DGI by at least 2 points to dec fall risk LTG Duration 02/12/19 Assessment Summary Assessment Pt cont to improve with ability to balance and tolerate inc standing activities. He was able to balance more with less hand holds with shuttle balance today Physical Therapy Plan Frequency and Duration Frequency of Treatment 1-2x/wk Duration of Treatment 2 months Plan of Care Start Date 12/13/18 Plan of Care End Date 02/12/19 Next Visit Focus/Plan Next Note Type Treatment Note Next Visit Plan cont to work on hip flexor strengthening into larger ranges
--- NOTE | 2018-12-20 09:47 | PT.OTN ---
Current Diagnoses Strain of muscle, fascia and tendon of right hip, initial encounter (12/20/18) Physical Therapy Treatment Note PT-OP-A Visit Information Start: 10/18/18 18:11 Freq: Status: Active Protocol: Document 12/20/18 09:25 [facility] (Rec: 12/20/18 09:47 [facility] [id number]) Out-Patient Physical Therapy Visit Information Visit Information Visit Type Treatment Note Visit Start Time 09:00 Visit Stop Time 09:40 Total Visit Minutes 40 Visit Number 12 Number of DREDGE WORKER Visits 0 PT-OP-B Current Condition Start: 10/18/18 18:11 Freq: Status: Active Protocol: Document 10/19/18 16:32 [facility] (Rec: 10/19/18 17:10 AR [email or web address]) Current Condition History of Current Condition Onset Date 09/25/2018 Current Complaints R groin pain, inc in R knee pain, decreased ROM, impaired balance History of Current Condition Pt fell off roof about 3 weeks ago. He did not go to urgent care until a couple weeks after the incident. Recent imaging shows no fracture or hip OA. Pt reports he has had an increase in pain in his R knee since the fall (hx of TKA , pain prior to fall). He is having pain with walking, mostly in his knee. He is unable to step into a car w/o significant pain and he was previously unable to step into truck. He was able to get into his truck today but had significant pain. Pt reports posterior hip pain while walking which eases with stretching into a small squat range. Pt also reports inc pain in posterior hip with extended sitting. Treatment Goals Patient/Caregiver Goals Increase ROM of RLE to WNL or at least equal to other side. Be able to get into and out of car w/o pain. Prior Functional Status Baseline Function- ADL's Independent Baseline Function- Mobility Independent Personal Factors Other Personal Factors That May Effect previous joint surgeries (L Therapy/Recovery shoulder x2, R shoulder, R TKA ) PT-OP-C Subjective Start: 10/18/18 18:11 Freq: Status: Active Protocol: Document 12/20/18 09:25 [facility] (Rec: 12/20/18 09:47 [facility] [id number]) OP-PT Subjective Patient Comments Patient Comments Pt reports getting in and out of truck is going okay PT-OP-E Functional Tests Start: 10/18/18 18:11 Freq: Status: Active Protocol: Document 10/19/18 16:32 [facility] (Rec: 10/19/18 17:10 AR [email or web address]) Functional Tests Functional Gait Assessment Score 22/30 Functional Gait Assessment Impairment 20 to <40% Impaired (Score 19- Rating 24) PT-OP-F Manual Assessment Start: 10/18/18 18:11 Freq: Status: Active Protocol: Document 10/19/18 16:32 [facility] (Rec: 10/19/18 17:10 [facility] [email or web address]) Manual Assessments Joint Mobility Assessment Joint Mobility Assessment R hip IR and ER: hard end feel with limited ROM PT-OP-G Mobility & Gait Start: 10/18/18 18:11 Freq: Status: Active Protocol: Document 10/19/18 16:32 [facility] (Rec: 10/19/18 17:10 [facility] [email or web address]) OP Mobility Evaluation Bed Mobility Rolling pt able to perform independently, but takes significant effort and time to perform Supine to and from Sit pt able to perform independently, but takes significant effort and time to perform Functional Movements Squats demonstrated proper form within small ROM OP Gait Assessment Gait Gait Assistance Required: Independent Gait Deviations General Gait Pattern Antalgic,Lateral Trunk Lean Factors Limiting Gait Function Factors Limiting Gait Function Limited Range of Motion,Pain Stair Climbing Evaluation Evaluation Level of Assist On Stairs Standby Assistance Devices Stair Climbing Assistive Devices Left Railing,Right Railing Technique/Endurance Stair Climbing Direction Ascend and Descend Stair Climbing Technique Step Over Step Number of Steps Climbed 4 Stair Climbing Set # Repetitions (reps) 2 PT-OP-K Range of Motion Start: 10/18/18 18:11 Freq: Status: Active Protocol: Document 10/19/18 16:32 [facility] (Rec: 10/19/18 17:10 AR [email or web address]) Hip Goniometric Range of Motion Hip Right Active Hip ROM WFL No Testing Position supine (flex), seated (IR/ER) Flexion w/Knee Flexed 70 Internal Rotation 10 External Rotation 33 Left Active Hip ROM WFL No Flexion w/Knee Flexed 110 Internal Rotation 15 External Rotation 25 Knee Goniometric Range of Motion Knee Right Flexion Active (degrees) 120 Left Flexion Active (degrees) 135 PT-OP-M Strength Start: 10/18/18 18:11 Freq: Status: Active Protocol: Document 12/13/18 09:21 [facility] (Rec: 12/13/18 12:15 [facility] [id number]) Hip Strength Hip Manual Muscle Testing Right Flexion (L2) 4- Good- Extension (S1) 3+ Fair+ Abduction 3+ Fair+ External Rotation 5 Normal Internal Rotation 5 Normal Left Flexion (L2) 4+ Good+ Extension (S1) 3+ Fair+ Abduction 3+ Fair+ External Rotation 5 Normal Internal Rotation 5 Normal Knee Strength Knee Manual Muscle Testing Left Flexion (S2) 4+ Good+ Extension (L3) 5 Normal Right Flexion (S2) 4+ Good+ Extension (L3) 4+ Good+ PT-OP-Q Treatments Start: 10/18/18 18:11 Freq: Status: Active Protocol: Document 12/20/18 09:25 [facility] (Rec: 12/20/18 09:47 [facility] [id number]) Gym Equipment Shuttle Balance red clips Details while hitting balloon Comments fwd: WBOS & NBOS staggered stance B side: WBOS & NBOS Therapeutic Exercises Standing Exercises step ups/taps Standing Exercise Name taps onto 16 in step fwd & 12 in side Side bilateral Reps/Minutes 15 ea resisted hip flexion Standing Exercise Name w/tband on feet Side bilateral Equipment Used red Reps/Minutes 5 Comments stopped d/t difficulty side stepping Side bilateral Equipment Used red Reps/Minutes 2x20ft ea Comments side steping & fwd/back walking squats Standing Exercise Name step up to bosu with mini side lunge Side bilateral Reps/Minutes 12 Manual Therapy Treatment Joint Mobilizations hip Joint R hip Direction inf & distraction Grade III Comments w/IR Neuro Re-Education Treatment Balance Activities hurdles Details fwd & side/side Equipment 4Lb ankle wts Reps/Duration 4x fwd, 2x B side PT-OP-R Modalities Start: 10/18/18 18:11 Freq: Status: Active Protocol: Document 10/23/18 14:08 [facility] (Rec: 10/23/18 14:20 AR [email or web address]) Hot Pack/Cold Pack Treatment Cold Pack Location R anterior hip Patient Position Supine Treatment Duration (minutes) 10 PT-OP-T Assessment and Plan Start: 10/18/18 18:11 Freq: Status: Active Protocol: Document 12/20/18 09:25 [facility] (Rec: 12/20/18 09:47 [facility] [id number]) Physical Therapy Assessment Goals Walking Short Term Goal (STG) Pt will be able to walk at least 1/4 mile w/o AD, seated rest break or inc in pain no more than 2 points on VAS. 102 pt able to walk 15 min STG Duration 12/26/18 Word Processing Specialist Goal (LTG) Pt will be able to walk 1 mile w/o AD, seated rest break or inc in pain no more than 2 point on VAS. LTG Duration 02/12/19 3 Impairment weakness Short Term Goal (STG) Pt will be compliant with HEP STG Duration achieved [facility] Goal (LTG) Pt will demonstrate 5/5 MMT strength to be able to accomplish daily activities. 12/13 improving LTG Duration 02/18/2019 2 Impairment pain Short Term Goal (STG) Pt will be able to step onto a [address] w/o pain in R hip or knee. STG Duration achieved Senior Living Goal (LTG) Pt will be able to step into pickup truck w/o pain in R hip . [id number] but has to do it quickly LTG Duration 01/19/2019 1 Impairment decreased dynamic balance Word Processing Specialist Goal (LTG) Pt will inc DGI by at least 2 points to dec fall risk LTG Duration 02/12/19 Assessment Summary Assessment Pt improving with balance and was challenged by xochitl parrish with shuttle balance board. Pt challenged with abd with flex activities, but was able to participate in all standing activities without a rest break or c/o inc pain. Physical Therapy Plan Frequency and Duration Frequency of Treatment 1-2x/wk Duration of Treatment 2 months Plan of Care Start Date 12/13/18 Plan of Care End Date 02/12/19 Next Visit Focus/Plan Next Note Type Treatment Note Next Visit Plan cont to work on hip flexor strengthening into larger ranges with combo of step up and abd
--- NOTE | 2018-12-28 18:51 | PT.OTN ---
Current Diagnoses Strain of muscle, fascia and tendon of right hip, initial encounter (12/28/18) Physical Therapy Treatment Note PT-OP-A Visit Information Start: 10/18/18 18:11 Freq: Status: Active Protocol: Document 12/28/18 18:45 [facility] (Rec: 12/28/18 18:51 [facility] [email or web address]) Out-Patient Physical Therapy Visit Information Visit Information Visit Type Treatment Note Visit Start Time 15:15 Visit Stop Time 15:58 Total Visit Minutes 43 Visit Number [address] TECHNICIAN Visits 0 PT-OP-B Current Condition Start: 10/18/18 18:11 Freq: Status: Active Protocol: Document 10/19/18 16:32 [facility] (Rec: 10/19/18 17:10 AR [email or web address]) Current Condition History of Current Condition Onset Date 09/25/2018 Current Complaints R groin pain, inc in R knee pain, decreased ROM, impaired balance History of Current Condition Pt fell off roof about 3 weeks ago. He did not go to urgent care until a couple weeks after the incident. Recent imaging shows no fracture or hip OA. Pt reports he has had an increase in pain in his R knee since the fall (hx of TKA , pain prior to fall). He is having pain with walking, mostly in his knee. He is unable to step into a car w/o significant pain and he was previously unable to step into truck. He was able to get into his truck today but had significant pain. Pt reports posterior hip pain while walking which eases with stretching into a small squat range. Pt also reports inc pain in posterior hip with extended sitting. Treatment Goals Patient/Caregiver Goals Increase ROM of RLE to WNL or at least equal to other side. Be able to get into and out of car w/o pain. Prior Functional Status Baseline Function- ADL's Independent Baseline Function- Mobility Independent Personal Factors Other Personal Factors That May Effect previous joint surgeries (L Therapy/Recovery shoulder x2, R shoulder, R TKA ) PT-OP-C Subjective Start: 10/18/18 18:11 Freq: Status: Active Protocol: Document 12/28/18 18:45 [facility] (Rec: 12/28/18 18:51 [facility] [email or web address]) OP-PT Subjective Patient Comments Patient Comments Pt reports he is sore after going up/down a lot of stairs at the [employer] today. Getting into his truck after was difficutl PT-OP-E Functional Tests Start: 10/18/18 18:11 Freq: Status: Active Protocol: Document 10/19/18 16:32 [facility] (Rec: 10/19/18 17:10 AR [email or web address]) Functional Tests Functional Gait Assessment Score 22/30 Functional Gait Assessment Impairment 20 to <40% Impaired (Score 19- Rating 24) PT-OP-F Manual Assessment Start: 10/18/18 18:11 Freq: Status: Active Protocol: Document 10/19/18 16:32 [facility] (Rec: 10/19/18 17:10 AR [email or web address]) Manual Assessments Joint Mobility Assessment Joint Mobility Assessment R hip IR and ER: hard end feel with limited ROM PT-OP-G Mobility & Gait Start: 10/18/18 18:11 Freq: Status: Active Protocol: Document 10/19/18 16:32 [facility] (Rec: 10/19/18 17:10 AR [email or web address]) OP Mobility Evaluation Bed Mobility Rolling pt able to perform independently, but takes significant effort and time to perform Supine to and from Sit pt able to perform independently, but takes significant effort and time to perform Functional Movements Squats demonstrated proper form within small ROM OP Gait Assessment Gait Gait Assistance Required: Independent Gait Deviations General Gait Pattern Antalgic,Lateral Trunk Lean Factors Limiting Gait Function Factors Limiting Gait Function Limited Range of Motion,Pain Stair Climbing Evaluation Evaluation Level of Assist On Stairs Standby Assistance Devices Stair Climbing Assistive Devices Left Railing,Right Railing Technique/Endurance Stair Climbing Direction Ascend and Descend Stair Climbing Technique Step Over Step Number of Steps Climbed 4 Stair Climbing Set # Repetitions (reps) 2 PT-OP-K Range of Motion Start: 10/18/18 18:11 Freq: Status: Active Protocol: Document 10/19/18 16:32 [facility] (Rec: 10/19/18 17:10 AR [email or web address]) Hip Goniometric Range of Motion Hip Right Active Hip ROM WFL No Testing Position supine (flex), seated (IR/ER) Flexion w/Knee Flexed 70 Internal Rotation 10 External Rotation 33 Left Active Hip ROM WFL No Flexion w/Knee Flexed 110 Internal Rotation 15 External Rotation 25 Knee Goniometric Range of Motion Knee Right Flexion Active (degrees) 120 Left Flexion Active (degrees) 135 PT-OP-M Strength Start: 10/18/18 18:11 Freq: Status: Active Protocol: Document 12/13/18 09:21 [facility] (Rec: 12/13/18 12:15 [facility] [id number]) Hip Strength Hip Manual Muscle Testing Right Flexion (L2) 4- Good- Extension (S1) 3+ Fair+ Abduction 3+ Fair+ External Rotation 5 Normal Internal Rotation 5 Normal Left Flexion (L2) 4+ Good+ Extension (S1) 3+ Fair+ Abduction 3+ Fair+ External Rotation 5 Normal Internal Rotation 5 Normal Knee Strength Knee Manual Muscle Testing Left Flexion (S2) 4+ Good+ Extension (L3) 5 Normal Right Flexion (S2) 4+ Good+ Extension (L3) 4+ Good+ PT-OP-Q Treatments Start: 10/18/18 18:11 Freq: Status: Active Protocol: Document 12/28/18 18:45 [facility] (Rec: 12/28/18 18:51 [facility] [email or web address]) Therapeutic Exercises Supine Exercises leg rolls & hold Supine Exercise Name IR with quad set Side right Reps/Minutes 5 marching Supine Exercise Name single leg progressed to alt Side bilateral Reps/Minutes 15 ea Standing Exercises resisted hip flexion Standing Exercise Name onto 16 in step tap Side bilateral Equipment Used 2# Reps/Minutes 12 Manual Therapy Treatment Soft Tissue Mobilization thigh Body Location circumfrential med Mobilization Type Myofascial Release IT band Body Location R Mobilization Type Rolling,Strumming Joint Mobilizations patellar Joint R Direction sup, med, inf hip Joint R hip Direction post FM Neuro Re-Education Treatment Balance Activities toe taps onto cone Details SLS w/taps onto cone in 1/2 seminole excursion pattern Surface level Equipment 5 stacking cone Reps/Duration 6 Comments cued for eccentric control PT-OP-R Modalities Start: 10/18/18 18:11 Freq: Status: Active Protocol: Document 10/23/18 14:08 [facility] (Rec: 10/23/18 14:20 AR [email or web address]) Hot Pack/Cold Pack Treatment Cold Pack Location R anterior hip Patient Position Supine Treatment Duration (minutes) 10 PT-OP-T Assessment and Plan Start: 10/18/18 18:11 Freq: Status: Active Protocol: Document 12/28/18 18:45 [facility] (Rec: 12/28/18 18:51 [facility] [email or web address]) Physical Therapy Assessment Goals Walking Short Term Goal (STG) Pt will be able to walk at least 1/4 mile w/o AD, seated rest break or inc in pain no more than 2 points on VAS. 10 pt able to walk 15 min STG Duration 12/26/18 [facility] Goal (LTG) Pt will be able to walk 1 mile w/o AD, seated rest break or inc in pain no more than 2 point on VAS. LTG Duration 02/12/19 3 Impairment weakness Short Term Goal (STG) Pt will be compliant with HEP STG Duration achieved [facility] Goal (LTG) Pt will demonstrate 5/5 MMT strength to be able to accomplish daily activities. 10 improving LTG Duration 02/18/2019 2 Impairment pain Short Term Goal (STG) Pt will be able to step onto a [address] w/o pain in R hip or knee. STG Duration achieved [facility] Goal (LTG) Pt will be able to step into pickup truck w/o pain in R hip . [id number] but has to do it quickly LTG Duration 01/19/2019 1 Impairment decreased dynamic balance [employer] Goal (LTG) Pt will inc DGI by at least 2 points to dec fall risk LTG Duration 02/12/19 Assessment Summary Assessment Pt cont to improve with balance on BLE and improved ability to hip flex demonstrated today. pt educated on importance of core to stabilize and given core exercise to work on at home. Physical Therapy Plan Frequency and Duration Frequency of Treatment 1-2x/wk Duration of Treatment 2 months Plan of Care Start Date 12/13/18 Plan of Care End Date 02/12/19 Next Visit Focus/Plan Next Note Type Treatment Note Next Visit Plan cont to work on hip flexor strengthening into larger ranges with combo of step up and abd
--- NOTE | 2019-01-02 17:53 | PT.OTN ---
Current Diagnoses Strain of muscle, fascia and tendon of right hip, initial encounter (01/02/19) Physical Therapy Treatment Note PT-OP-A Visit Information Start: 10/18/18 18:11 Freq: Status: Active Protocol: Document 01/02/19 07:30 MT (Rec: 01/02/19 11:41 MT [email or web address]) Out-Patient Physical Therapy Visit Information Visit Information Visit Type Treatment Note Visit Start Time 07:30 Visit Stop Time 08:16 Total Visit Minutes 46 Visit Number 14 Number of TICKET MACHINE OPERATOR Visits 0 PT-OP-B Current Condition Start: 10/18/18 18:11 Freq: Status: Active Protocol: Document 10/19/18 16:32 AR (Rec: 10/19/18 17:10 AR [email or web address]) Current Condition History of Current Condition Onset Date 09/25/2018 Current Complaints R groin pain, inc in R knee pain, decreased ROM, impaired balance History of Current Condition Pt fell off roof about 3 weeks ago. He did not go to urgent care until a couple weeks after the incident. Recent imaging shows no fracture or hip OA. Pt reports he has had an increase in pain in his R knee since the fall (hx of TKA , pain prior to fall). He is having pain with walking, mostly in his knee. He is unable to step into a car w/o significant pain and he was previously unable to step into truck. He was able to get into his truck today but had significant pain. Pt reports posterior hip pain while walking which eases with stretching into a small squat range. Pt also reports inc pain in posterior hip with extended sitting. Treatment Goals Patient/Caregiver Goals Increase ROM of RLE to WNL or at least equal to other side. Be able to get into and out of car w/o pain. Prior Functional Status Baseline Function- ADL's Independent Baseline Function- Mobility Independent Personal Factors Other Personal Factors That May Effect previous joint surgeries (L Therapy/Recovery shoulder x2, R shoulder, R TKA ) PT-OP-C Subjective Start: 10/18/18 18:11 Freq: Status: Active Protocol: Document 01/02/19 07:30 MT (Rec: 01/02/19 11:41 MT [email or web address]) OP-PT Subjective Patient Comments Patient Comments Pt reports that he is still having difficulty with getting into his truck over the weekend. He reports that he was sore over the weekend, which could have been attributed to his last PT session or the amount of walking that he did. PT-OP-E Functional Tests Start: 10/18/18 18:11 Freq: Status: Active Protocol: Document 10/19/18 16:32 AR (Rec: 10/19/18 17:10 AR [email or web address]) Functional Tests Functional Gait Assessment Score 22/30 Functional Gait Assessment Impairment 20 to <40% Impaired (Score 19- Rating 24) PT-OP-F Manual Assessment Start: 10/18/18 18:11 Freq: Status: Active Protocol: Document 10/19/18 16:32 AR (Rec: 10/19/18 17:10 AR [email or web address]) Manual Assessments Joint Mobility Assessment Joint Mobility Assessment R hip IR and ER: hard end feel with limited ROM PT-OP-G Mobility & Gait Start: 10/18/18 18:11 Freq: Status: Active Protocol: Document 10/19/18 16:32 AR (Rec: 10/19/18 17:10 AR [email or web address]) OP Mobility Evaluation Bed Mobility Rolling pt able to perform independently, but takes significant effort and time to perform Supine to and from Sit pt able to perform independently, but takes significant effort and time to perform Functional Movements Squats demonstrated proper form within small ROM OP Gait Assessment Gait Gait Assistance Required: Independent Gait Deviations General Gait Pattern Antalgic,Lateral Trunk Lean Factors Limiting Gait Function Factors Limiting Gait Function Limited Range of Motion,Pain Stair Climbing Evaluation Evaluation Level of Assist On Stairs Standby Assistance Devices Stair Climbing Assistive Devices Left Railing,Right Railing Technique/Endurance Stair Climbing Direction Ascend and Descend Stair Climbing Technique Step Over Step Number of Steps Climbed 4 Stair Climbing Set # Repetitions (reps) 2 PT-OP-K Range of Motion Start: 10/18/18 18:11 Freq: Status: Active Protocol: Document 10/19/18 16:32 AR (Rec: 10/19/18 17:10 AR [email or web address]) Hip Goniometric Range of Motion Hip Right Active Hip ROM WFL No Testing Position supine (flex), seated (IR/ER) Flexion w/Knee Flexed 70 Internal Rotation 10 External Rotation 33 Left Active Hip ROM WFL No Flexion w/Knee Flexed 110 Internal Rotation 15 External Rotation 25 Knee Goniometric Range of Motion Knee Right Flexion Active (degrees) 120 Left Flexion Active (degrees) 135 PT-OP-M Strength Start: 10/18/18 18:11 Freq: Status: Active Protocol: Document 12/13/18 09:21 [facility] (Rec: 12/13/18 12:15 [facility] [email or web address]) Hip Strength Hip Manual Muscle Testing Right Flexion (L2) 4- Good- Extension (S1) 3+ Fair+ Abduction 3+ Fair+ External Rotation 5 Normal Internal Rotation 5 Normal Left Flexion (L2) 4+ Good+ Extension (S1) 3+ Fair+ Abduction 3+ Fair+ External Rotation 5 Normal Internal Rotation 5 Normal Knee Strength Knee Manual Muscle Testing Left Flexion (S2) 4+ Good+ Extension (L3) 5 Normal Right Flexion (S2) 4+ Good+ Extension (L3) 4+ Good+ PT-OP-Q Treatments Start: 10/18/18 18:11 Freq: Status: Active Protocol: Document 01/02/19 07:30 MT (Rec: 01/02/19 11:41 MT [email or web address]) Gym Equipment Shuttle Balance red clips Details weight shift + balance holds Reps/Duration 10 weigth whifts + 1 min holds Comments fwd/back and side/side; NBOS and WBOS Therapeutic Exercises Supine Exercises marching Supine Exercise Name alternating marches with 3 second holds Side bilateral Resistance none Reps/Minutes 15 ea Comments attempted with L1 band and was too difficult Standing Exercises lunge Standing Exercise Name partial lunge Side bilateral Reps/Minutes 10 Comments cueing for avoiding knee going over toes quad/hip flexor stretch Standing Exercise Name hip flexor stretch Side right Reps/Minutes 30 seconds Comments reviewed proper form with no knee flexion of front leg squats Standing Exercise Name partial squat Side bilateral Reps/Minutes 20 Comments cueing for avoiding knees going over toes Manual Therapy Treatment Soft Tissue Mobilization hip flexors Body Location iliopsoas/quad Mobilization Type Rolling,Strumming,Sustained Pressure Intensity/Depth Moderate Body Position Supine Neuro Re-Education Treatment Balance Activities bosu Details step ups/downs Reps/Duration 15 each side Comments pt required frequent use of HR to maintain balance PT-OP-R Modalities Start: 10/18/18 18:11 Freq: Status: Active Protocol: Document 10/23/18 14:08 AR (Rec: 10/23/18 14:20 AR [email or web address]) Hot Pack/Cold Pack Treatment Cold Pack Location R anterior hip Patient Position Supine Treatment Duration (minutes) 10 PT-OP-T Assessment and Plan Start: 10/18/18 18:11 Freq: Status: Active Protocol: Document 01/02/19 07:30 MT (Rec: 01/02/19 11:41 MT [email or web address]) Physical Therapy Assessment Goals Walking Short Term Goal (STG) Pt will be able to walk at least 1/4 mile w/o AD, seated rest break or inc in pain no more than 2 points on VAS. 10/2 pt able to walk 15 min STG Duration 12/26/18 Snf Goal (LTG) Pt will be able to walk 1 mile w/o AD, seated rest break or inc in pain no more than 2 point on VAS. 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 10 improving LTG Duration 02/18/2019 2 Impairment pain Short Term Goal (STG) Pt will be able to step onto a [address] w/o pain in R hip or knee. STG Duration achieved Snf Goal (LTG) Pt will be able to step into pickup truck w/o pain in R hip . [id number] but has to do it quickly LTG Duration 01/19/2019 1 Impairment decreased dynamic balance Snf Goal (LTG) Pt will inc DGI by at least 2 points to dec fall risk LTG Duration 02/12/19 Assessment Summary Assessment Pt demonstrated decreased R hip flexor strength and decreased standing balance when challenged. Pt reported less pain and increased hip flexion ROM following STM of iliopsoas Physical Therapy Plan Next Visit Focus/Plan Next Note Type Treatment Note Next Visit Plan hip flexor strengthening/ROM, quad strengthening, balance, transfers into truck
--- NOTE | 2019-01-08 18:50 | PT.OTN ---
Current Diagnoses Strain of muscle, fascia and tendon of right hip, initial encounter (01/08/19) Physical Therapy Treatment Note PT-OP-A Visit Information Start: 10/18/18 18:11 Freq: Status: Active Protocol: Document 01/08/19 09:47 MT (Rec: 01/08/19 13:44 MT [id number]) Out-Patient Physical Therapy Visit Information Visit Information Visit Type Treatment Note Visit Start Time 09:47 Visit Stop Time 10:32 Total Visit Minutes 45 Visit Number 15 Number of PARIMUTUEL TICKET CASHIER Visits 0 PT-OP-B Current Condition Start: 10/18/18 18:11 Freq: Status: Active Protocol: Document 10/19/18 16:32 AR (Rec: 10/19/18 17:10 AR [email or web address]) Current Condition History of Current Condition Onset Date 09/25/2018 Current Complaints R groin pain, inc in R knee pain, decreased ROM, impaired balance History of Current Condition Pt fell off roof about 3 weeks ago. He did not go to urgent care until a couple weeks after the incident. Recent imaging shows no fracture or hip OA. Pt reports he has had an increase in pain in his R knee since the fall (hx of TKA , pain prior to fall). He is having pain with walking, mostly in his knee. He is unable to step into a car w/o significant pain and he was previously unable to step into truck. He was able to get into his truck today but had significant pain. Pt reports posterior hip pain while walking which eases with stretching into a small squat range. Pt also reports inc pain in posterior hip with extended sitting. Treatment Goals Patient/Caregiver Goals Increase ROM of RLE to WNL or at least equal to other side. Be able to get into and out of car w/o pain. Prior Functional Status Baseline Function- ADL's Independent Baseline Function- Mobility Independent Personal Factors Other Personal Factors That May Effect previous joint surgeries (L Therapy/Recovery shoulder x2, R shoulder, R TKA ) PT-OP-C Subjective Start: 10/18/18 18:11 Freq: Status: Active Protocol: Document 01/08/19 09:47 MT (Rec: 01/08/19 13:44 MT [id number]) OP-PT Subjective Patient Comments Patient Comments Pt reports that he has still been having difficulty with stepping with his R foot to get into his truck. He feels like he has to externally rotate his leg to be able to get his leg high enough into the truck. PT-OP-E Functional Tests Start: 10/18/18 18:11 Freq: Status: Active Protocol: Document 10/19/18 16:32 AR (Rec: 10/19/18 17:10 AR [email or web address]) Functional Tests Functional Gait Assessment Score 22/30 Functional Gait Assessment Impairment 20 to <40% Impaired (Score 19- Rating 24) PT-OP-F Manual Assessment Start: 10/18/18 18:11 Freq: Status: Active Protocol: Document 10/19/18 16:32 AR (Rec: 10/19/18 17:10 AR [email or web address]) Manual Assessments Joint Mobility Assessment Joint Mobility Assessment R hip IR and ER: hard end feel with limited ROM PT-OP-G Mobility & Gait Start: 10/18/18 18:11 Freq: Status: Active Protocol: Document 10/19/18 16:32 AR (Rec: 10/19/18 17:10 AR [email or web address]) OP Mobility Evaluation Bed Mobility Rolling pt able to perform independently, but takes significant effort and time to perform Supine to and from Sit pt able to perform independently, but takes significant effort and time to perform Functional Movements Squats demonstrated proper form within small ROM OP Gait Assessment Gait Gait Assistance Required: Independent Gait Deviations General Gait Pattern Antalgic,Lateral Trunk Lean Factors Limiting Gait Function Factors Limiting Gait Function Limited Range of Motion,Pain Stair Climbing Evaluation Evaluation Level of Assist On Stairs Standby Assistance Devices Stair Climbing Assistive Devices Left Railing,Right Railing Technique/Endurance Stair Climbing Direction Ascend and Descend Stair Climbing Technique Step Over Step Number of Steps Climbed 4 Stair Climbing Set # Repetitions (reps) 2 PT-OP-K Range of Motion Start: 10/18/18 18:11 Freq: Status: Active Protocol: Document 10/19/18 16:32 AR (Rec: 10/19/18 17:10 AR [email or web address]) Hip Goniometric Range of Motion Hip Right Active Hip ROM WFL No Testing Position supine (flex), seated (IR/ER) Flexion w/Knee Flexed 70 Internal Rotation 10 External Rotation 33 Left Active Hip ROM WFL No Flexion w/Knee Flexed 110 Internal Rotation 15 External Rotation 25 Knee Goniometric Range of Motion Knee Right Flexion Active (degrees) 120 Left Flexion Active (degrees) 135 PT-OP-M Strength Start: 10/18/18 18:11 Freq: Status: Active Protocol: Document 12/13/18 09:21 LR (Rec: 12/13/18 12:15 [facility] [id number]) Hip Strength Hip Manual Muscle Testing Right Flexion (L2) 4- Good- Extension (S1) 3+ Fair+ Abduction 3+ Fair+ External Rotation 5 Normal Internal Rotation 5 Normal Left Flexion (L2) 4+ Good+ Extension (S1) 3+ Fair+ Abduction 3+ Fair+ External Rotation 5 Normal Internal Rotation 5 Normal Knee Strength Knee Manual Muscle Testing Left Flexion (S2) 4+ Good+ Extension (L3) 5 Normal Right Flexion (S2) 4+ Good+ Extension (L3) 4+ Good+ PT-OP-Q Treatments Start: 10/18/18 18:11 Freq: Status: Active Protocol: Document 01/08/19 09:47 MT (Rec: 01/08/19 13:44 MT [id number]) Gym Equipment Shuttle Balance red clips Details weight shifts + balance Reps/Duration 10 weigth whifts + 1 min holds Comments fwd/back and side/side; NBOS and WBOS Therapeutic Exercises Standing Exercises step ups/taps Standing Exercise Name step ups with box in front and box at 45 degrees of right side Side bilateral Resistance 4lbs Equipment Used 12 inch box Reps/Minutes 20 Comments simulate getting into truck. Pt reported fatigue with exercise quad/hip flexor stretch Standing Exercise Name hip flexor stretch Side bilateral Reps/Minutes 30 seconds Comments reviewed proper form with no knee flexion of front leg squats Standing Exercise Name partial squat Side bilateral Reps/Minutes 20 Comments cueing for avoiding knees going over toes Manual Therapy Treatment Soft Tissue Mobilization hip flexors Body Location iliopsoas/quad Mobilization Type Rolling,Strumming,Sustained Pressure Intensity/Depth Moderate Body Position Supine PT-OP-R Modalities Start: 10/18/18 18:11 Freq: Status: Active Protocol: Document 10/23/18 14:08 AR (Rec: 10/23/18 14:20 AR [email or web address]) Hot Pack/Cold Pack Treatment Cold Pack Location R anterior hip Patient Position Supine Treatment Duration (minutes) 10 PT-OP-T Assessment and Plan Start: 10/18/18 18:11 Freq: Status: Active Protocol: Document 01/08/19 09:47 MT (Rec: 01/08/19 13:44 MT [id number]) Physical Therapy Assessment Goals Walking Short Term Goal (STG) Pt will be able to walk at least 1/4 mile w/o AD, seated rest break or inc in pain no more than 2 points on VAS. 10 pt able to walk 15 min STG Duration 12/26/18 Long-Term Goal (LTG) Pt will be able to walk 1 mile w/o AD, seated rest break or inc in pain no more than 2 point on VAS. LTG Duration 02/12/19 3 Impairment weakness Short Term Goal (STG) Pt will be compliant with HEP STG Duration achieved Long-Term Goal (LTG) Pt will demonstrate 5/5 MMT strength to be able to accomplish daily activities. 12/13 improving LTG Duration 02/18/2019 2 Impairment pain Short Term Goal (STG) Pt will be able to step onto a [address] w/o pain in R hip or knee. STG Duration achieved Lawn Technician Goal (LTG) Pt will be able to step into pickup truck w/o pain in R hip . [id number] but has to do it quickly LTG Duration 01/19/2019 1 Impairment decreased dynamic balance Long-Term Goal (LTG) Pt will inc DGI by at least 2 points to dec fall risk LTG Duration 02/12/19 Assessment Summary Assessment Pt demonstrated much better AROM and strength of his hip flexors today, as he was bale to do weighted taps on the 12 inch box. He did report that that activity was fatiguing to him when the box as placed at anangle forward/right of him in order to simulate his truck . Pt showed improved stability with balance activities and was able to tolerate greater challenge. Physical Therapy Plan Next Visit Focus/Plan Next Note Type Treatment Note Next Visit Plan assess pt's ability and technique to transfer into and out of his truck, balance with NBOS and uneven surfaces, quad strengthening, hip flexor ROM
--- NOTE | 2019-01-15 19:19 | PT.OTN ---
Current Diagnoses Strain of muscle, fascia and tendon of right hip, initial encounter (01/15/19) Physical Therapy Treatment Note PT-OP-A Visit Information Start: 10/18/18 18:11 Freq: Status: Active Protocol: Document 01/15/19 09:40 MT (Rec: 01/15/19 11:47 MT [id number]) Out-Patient Physical Therapy Visit Information Visit Information Visit Type Treatment Note Visit Start Time 09:40 Visit Stop Time 10:25 Total Visit Minutes 45 Visit Number 16 Number of AIRBRUSH PAINTER Visits 0 PT-OP-B Current Condition Start: 10/18/18 18:11 Freq: Status: Active Protocol: Document 10/19/18 16:32 AR (Rec: 10/19/18 17:10 AR [email or web address]) Current Condition History of Current Condition Onset Date 09/25/2018 Current Complaints R groin pain, inc in R knee pain, decreased ROM, impaired balance History of Current Condition Pt fell off roof about 3 weeks ago. He did not go to urgent care until a couple weeks after the incident. Recent imaging shows no fracture or hip OA. Pt reports he has had an increase in pain in his R knee since the fall (hx of TKA , pain prior to fall). He is having pain with walking, mostly in his knee. He is unable to step into a car w/o significant pain and he was previously unable to step into truck. He was able to get into his truck today but had significant pain. Pt reports posterior hip pain while walking which eases with stretching into a small squat range. Pt also reports inc pain in posterior hip with extended sitting. Treatment Goals Patient/Caregiver Goals Increase ROM of RLE to WNL or at least equal to other side. Be able to get into and out of car w/o pain. Prior Functional Status Baseline Function- ADL's Independent Baseline Function- Mobility Independent Personal Factors Other Personal Factors That May Effect previous joint surgeries (L Therapy/Recovery shoulder x2, R shoulder, R TKA ) PT-OP-C Subjective Start: 10/18/18 18:11 Freq: Status: Active Protocol: Document 01/15/19 09:40 MT (Rec: 01/15/19 11:47 MT [id number]) OP-PT Subjective Patient Comments Patient Comments Pt remarks that he is still struggling with getting into his truck. He has been incorporating high intensity intervals into his workouts at the gym. He has been doing isael eof his strengthening exercises for his HEP, but has not been getting out to walk as mucvh as he should PT-OP-E Functional Tests Start: 10/18/18 18:11 Freq: Status: Active Protocol: Document 10/19/18 16:32 AR (Rec: 10/19/18 17:10 AR [email or web address]) Functional Tests Functional Gait Assessment Score 22/30 Functional Gait Assessment Impairment 20 to <40% Impaired (Score 19- Rating 24) PT-OP-F Manual Assessment Start: 10/18/18 18:11 Freq: Status: Active Protocol: Document 10/19/18 16:32 AR (Rec: 10/19/18 17:10 AR [email or web address]) Manual Assessments Joint Mobility Assessment Joint Mobility Assessment R hip IR and ER: hard end feel with limited ROM PT-OP-G Mobility & Gait Start: 10/18/18 18:11 Freq: Status: Active Protocol: Document 10/19/18 16:32 AR (Rec: 10/19/18 17:10 AR [email or web address]) OP Mobility Evaluation Bed Mobility Rolling pt able to perform independently, but takes significant effort and time to perform Supine to and from Sit pt able to perform independently, but takes significant effort and time to perform Functional Movements Squats demonstrated proper form within small ROM OP Gait Assessment Gait Gait Assistance Required: Independent Gait Deviations General Gait Pattern Antalgic,Lateral Trunk Lean Factors Limiting Gait Function Factors Limiting Gait Function Limited Range of Motion,Pain Stair Climbing Evaluation Evaluation Level of Assist On Stairs Standby Assistance Devices Stair Climbing Assistive Devices Left Railing,Right Railing Technique/Endurance Stair Climbing Direction Ascend and Descend Stair Climbing Technique Step Over Step Number of Steps Climbed 4 Stair Climbing Set # Repetitions (reps) 2 PT-OP-K Range of Motion Start: 10/18/18 18:11 Freq: Status: Active Protocol: Document 10/19/18 16:32 AR (Rec: 10/19/18 17:10 AR [email or web address]) Hip Goniometric Range of Motion Hip Right Active Hip ROM WFL No Testing Position supine (flex), seated (IR/ER) Flexion w/Knee Flexed 70 Internal Rotation 10 External Rotation 33 Left Active Hip ROM WFL No Flexion w/Knee Flexed 110 Internal Rotation 15 External Rotation 25 Knee Goniometric Range of Motion Knee Right Flexion Active (degrees) 120 Left Flexion Active (degrees) 135 PT-OP-M Strength Start: 10/18/18 18:11 Freq: Status: Active Protocol: Document 12/13/18 09:21 LR (Rec: 12/13/18 12:15 [facility] [id number]) Hip Strength Hip Manual Muscle Testing Right Flexion (L2) 4- Good- Extension (S1) 3+ Fair+ Abduction 3+ Fair+ External Rotation 5 Normal Internal Rotation 5 Normal Left Flexion (L2) 4+ Good+ Extension (S1) 3+ Fair+ Abduction 3+ Fair+ External Rotation 5 Normal Internal Rotation 5 Normal Knee Strength Knee Manual Muscle Testing Left Flexion (S2) 4+ Good+ Extension (L3) 5 Normal Right Flexion (S2) 4+ Good+ Extension (L3) 4+ Good+ PT-OP-Q Treatments Start: 10/18/18 18:11 Freq: Status: Active Protocol: Document 01/15/19 09:40 MT (Rec: 01/15/19 11:47 MT [id number]) Gym Equipment Shuttle Balance red clips Details weight shifts + balance Reps/Duration 10 weigth whifts + 1 min holds Comments fwd/back and side/side; NBOS and WBOS Therapeutic Exercises Standing Exercises step ups/taps Standing Exercise Name resisted taps onto 8 in box Side bilateral Resistance L1 Equipment Used 8 inch box Reps/Minutes 20 resisted hip flexion Standing Exercise Name alternating marches with 10 second holds in SLS Side bilateral Resistance L1 Reps/Minutes 10 each side Comments this was difficult for the pt side stepping Standing Exercise Name side stepping with partial squat Side bilateral Reps/Minutes 20 Neuro Re-Education Treatment Balance Activities bosu Details step ups/downs Reps/Duration 15 each side Comments pt required frequent use of HR to maintain balance Self-Care/Home Management Treatment Activities Self-Care/Home Management Activities Observed pt's technique for getting into and out of his truck. He is limited in hip felxion on the R LE and requires a kicking motion and ER in order to get his leg into the truck. Pt does not have this problem with his L LE when getting in on the passenger side. Added exercise to pt's HEP for hip flexion strengthenig. Pt steps on a surface as high as his truck step and attemps to lift his leg from that position with an isometric hold for 5 seconds. PT-OP-R Modalities Start: 10/18/18 18:11 Freq: Status: Active Protocol: Document 10/23/18 14:08 AR (Rec: 10/23/18 14:20 AR [email or web address]) Hot Pack/Cold Pack Treatment Cold Pack Location R anterior hip Patient Position Supine Treatment Duration (minutes) 10 PT-OP-T Assessment and Plan Start: 10/18/18 18:11 Freq: Status: Active Protocol: Document 01/15/19 09:40 MT (Rec: 01/15/19 11:47 MT [id number]) Physical Therapy Assessment Goals Walking Short Term Goal (STG) Pt will be able to walk at least 1/4 mile w/o AD, seated rest break or inc in pain no more than 2 points on VAS. 10/2 pt able to walk 15 min STG Duration 12/26/18 Strainer Tender Goal (LTG) Pt will be able to walk 1 mile w/o AD, seated rest break or inc in pain no more than 2 point on VAS. LTG Duration 02/12/19 3 Impairment weakness Short Term Goal (STG) Pt will be compliant with HEP STG Duration achieved Snf Goal (LTG) Pt will demonstrate 5/5 MMT strength to be able to accomplish daily activities. 102 improving LTG Duration 02/18/2019 2 Impairment pain Short Term Goal (STG) Pt will be able to step onto a [address] w/o pain in R hip or knee. STG Duration achieved Strainer Tender Goal (LTG) Pt will be able to step into pickup truck w/o pain in R hip . [id number] but has to do it quickly LTG Duration 01/19/2019 1 Impairment decreased dynamic balance Snf Goal (LTG) Pt will inc DGI by at least 2 points to dec fall risk LTG Duration 02/12/19 Assessment Summary Assessment Pt demonstarted his technique for getting into and out of his truck. He struggles to get his R leg up high enough to step into his truck and requires a kicking and ER motion to get it into the truck. Pt's has limited hip flexion ROM of the RLE and was given exercises to incorpporate into his HEP involving stepping up to something that is the height of his truck at home and trying to lift his foot with an isometric hold from that level. Pt is able to incorporate more difficult balance actvities including NBOS on unstable surfaces. Physical Therapy Plan Frequency and Duration Frequency of Treatment 1-2x/week Duration of Treatment 2 months Plan of Care Start Date 12/13/18 Plan of Care End Date 02/12/19 Next Visit Focus/Plan Next Note Type Treatment Note Next Visit Plan balance with NBOS and on unstable surfaces, quad and glut strengthening, lateral and forward step ups onto high surface to mimic truck
--- NOTE | 2019-01-22 18:48 | PT.OTN ---
Current Diagnoses Strain of muscle, fascia and tendon of right hip, initial encounter (01/22/19) Physical Therapy Treatment Note PT-OP-A Visit Information Start: 10/18/18 18:11 Freq: Status: Active Protocol: Document 01/22/19 09:47 MT (Rec: 01/22/19 11:00 MT [id number]) Out-Patient Physical Therapy Visit Information Visit Information Visit Type Treatment Note Visit Start Time 09:47 Visit Stop Time 10:34 Total Visit Minutes 47 Visit Number 17 Number of ELECTRIC DISTRIBUTION CHECKER Visits 0 PT-OP-B Current Condition Start: 10/18/18 18:11 Freq: Status: Active Protocol: Document 10/19/18 16:32 AR (Rec: 10/19/18 17:10 AR [email or web address]) Current Condition History of Current Condition Onset Date 09/25/2018 Current Complaints R groin pain, inc in R knee pain, decreased ROM, impaired balance History of Current Condition Pt fell off roof about 3 weeks ago. He did not go to urgent care until a couple weeks after the incident. Recent imaging shows no fracture or hip OA. Pt reports he has had an increase in pain in his R knee since the fall (hx of TKA , pain prior to fall). He is having pain with walking, mostly in his knee. He is unable to step into a car w/o significant pain and he was previously unable to step into truck. He was able to get into his truck today but had significant pain. Pt reports posterior hip pain while walking which eases with stretching into a small squat range. Pt also reports inc pain in posterior hip with extended sitting. Treatment Goals Patient/Caregiver Goals Increase ROM of RLE to WNL or at least equal to other side. Be able to get into and out of car w/o pain. Prior Functional Status Baseline Function- ADL's Independent Baseline Function- Mobility Independent Personal Factors Other Personal Factors That May Effect previous joint surgeries (L Therapy/Recovery shoulder x2, R shoulder, R TKA ) PT-OP-C Subjective Start: 10/18/18 18:11 Freq: Status: Active Protocol: Document 01/22/19 09:47 MT (Rec: 01/22/19 11:00 MT [id number]) OP-PT Subjective Patient Comments Patient Comments Pt remarks that he is still having some trouble with stepping into his truck, but that he is able to do it. He stated that it continues to cause pain to his back and knee. He said that he feels his balance is getting much better and he is able to walk farther than previously. PT-OP-E Functional Tests Start: 10/18/18 18:11 Freq: Status: Active Protocol: Document 10/19/18 16:32 AR (Rec: 10/19/18 17:10 AR [email or web address]) Functional Tests Functional Gait Assessment Score 22/30 Functional Gait Assessment Impairment 20 to <40% Impaired (Score 19- Rating 24) PT-OP-F Manual Assessment Start: 10/18/18 18:11 Freq: Status: Active Protocol: Document 10/19/18 16:32 AR (Rec: 10/19/18 17:10 AR [email or web address]) Manual Assessments Joint Mobility Assessment Joint Mobility Assessment R hip IR and ER: hard end feel with limited ROM PT-OP-G Mobility & Gait Start: 10/18/18 18:11 Freq: Status: Active Protocol: Document 10/19/18 16:32 AR (Rec: 10/19/18 17:10 AR [email or web address]) OP Mobility Evaluation Bed Mobility Rolling pt able to perform independently, but takes significant effort and time to perform Supine to and from Sit pt able to perform independently, but takes significant effort and time to perform Functional Movements Squats demonstrated proper form within small ROM OP Gait Assessment Gait Gait Assistance Required: Independent Gait Deviations General Gait Pattern Antalgic,Lateral Trunk Lean Factors Limiting Gait Function Factors Limiting Gait Function Limited Range of Motion,Pain Stair Climbing Evaluation Evaluation Level of Assist On Stairs Standby Assistance Devices Stair Climbing Assistive Devices Left Railing,Right Railing Technique/Endurance Stair Climbing Direction Ascend and Descend Stair Climbing Technique Step Over Step Number of Steps Climbed 4 Stair Climbing Set # Repetitions (reps) 2 PT-OP-K Range of Motion Start: 10/18/18 18:11 Freq: Status: Active Protocol: Document 10/19/18 16:32 AR (Rec: 10/19/18 17:10 AR [email or web address]) Hip Goniometric Range of Motion Hip Right Active Hip ROM WFL No Testing Position supine (flex), seated (IR/ER) Flexion w/Knee Flexed 70 Internal Rotation 10 External Rotation 33 Left Active Hip ROM WFL No Flexion w/Knee Flexed 110 Internal Rotation 15 External Rotation 25 Knee Goniometric Range of Motion Knee Right Flexion Active (degrees) 120 Left Flexion Active (degrees) 135 PT-OP-M Strength Start: 10/18/18 18:11 Freq: Status: Active Protocol: Document 12/13/18 09:21 LRH (Rec: 12/13/18 12:15 LR [id number]) Hip Strength Hip Manual Muscle Testing Right Flexion (L2) 4- Good- Extension (S1) 3+ Fair+ Abduction 3+ Fair+ External Rotation 5 Normal Internal Rotation 5 Normal Left Flexion (L2) 4+ Good+ Extension (S1) 3+ Fair+ Abduction 3+ Fair+ External Rotation 5 Normal Internal Rotation 5 Normal Knee Strength Knee Manual Muscle Testing Left Flexion (S2) 4+ Good+ Extension (L3) 5 Normal Right Flexion (S2) 4+ Good+ Extension (L3) 4+ Good+ PT-OP-Q Treatments Start: 10/18/18 18:11 Freq: Status: Active Protocol: Document 01/22/19 09:47 MT (Rec: 01/22/19 11:00 MT [id number]) Gym Equipment Shuttle Balance red clips Details weight shifts + balance Reps/Duration 10 weigth whifts + 1 min holds Comments fwd/back and side/side; NBOS and WBOS Therapeutic Exercises Standing Exercises step ups/taps Standing Exercise Name taps onto box; lateral, front, angled Side right Equipment Used 12 inch box Reps/Minutes 15 ea Comments cueing for controlled movement resisted hip flexion Standing Exercise Name isometric/concentric hip flexion with foot on 20 inch surface Side right Reps/Minutes 15 Comments pt cued to attempt to lift foot higher than step if possible side stepping Standing Exercise Name side stepping with partial squat Side bilateral Reps/Minutes 20 SLS in mirror Standing Exercise Name resisted alternating marches Side bilateral Resistance L2 Reps/Minutes 15 each side Comments use of HR on one side to help stabilize Manual Therapy Treatment Soft Tissue Mobilization scar tissue Body Location medial knee Mobilization Type Myofascial Release, Oscillations,Strumming Intensity/Depth Superficial Body Position Supine Joint Mobilizations patellar Joint patellofemoral Direction superior, inferior, medial Grade III Body Position Supine PT-OP-R Modalities Start: 10/18/18 18:11 Freq: Status: Active Protocol: Document 10/23/18 14:08 AR (Rec: 10/23/18 14:20 AR [email or web address]) Hot Pack/Cold Pack Treatment Cold Pack Location R anterior hip Patient Position Supine Treatment Duration (minutes) 10 PT-OP-T Assessment and Plan Start: 10/18/18 18:11 Freq: Status: Active Protocol: Document 01/22/19 09:47 MT (Rec: 01/22/19 11:00 MT [id number]) Physical Therapy Assessment Goals Walking Short Term Goal (STG) Pt will be able to walk at least 1/4 mile w/o AD, seated rest break or inc in pain no more than 2 points on VAS. 10/2 pt able to walk 15 min STG Duration 12/26/18 Signs And Displays Salesperson Goal (LTG) Pt will be able to walk 1 mile w/o AD, seated rest break or inc in pain no more than 2 point on VAS. LTG Duration 02/12/19 3 Impairment weakness Short Term Goal (STG) Pt will be compliant with HEP STG Duration achieved Signs And Displays Salesperson Goal (LTG) Pt will demonstrate 5/5 MMT strength to be able to accomplish daily activities. 102 improving LTG Duration 02/18/2019 2 Impairment pain Short Term Goal (STG) Pt will be able to step onto a [address] w/o pain in R hip or knee. STG Duration achieved Signs And Displays Salesperson Goal (LTG) Pt will be able to step into pickup truck w/o pain in R hip . [id number] but has to do it quickly LTG Duration 01/19/2019 1 Impairment decreased dynamic balance Alf Goal (LTG) Pt will inc DGI by at least 2 points to dec fall risk LTG Duration 02/12/19 Assessment Summary Assessment Pt has demonstrated increased balance ability and reports that his balance feels similar to what it was following discharge from his last PT referral. Pt continues to have decreased B LE strength ( R more impaired than L) which continues to interfere with pt 's ability to get into his truck, as well as pain in the back and knee. Discussed with pt possible discharge following next session. Pt was agreeable to discharge and wanted exercises that he would be able to do at home and ways to progress them. Physical Therapy Plan Frequency and Duration Frequency of Treatment 1-2x/week Duration of Treatment 2 months Plan of Care Start Date 12/13/18 Plan of Care End Date 02/12/19 Next Visit Focus/Plan Next Note Type Discharge Summary Next Visit Plan Review pt HEP and look for exercises to add and ways to streamline for pt adherance once discharged. Exercises focused on hip flexor strengthening and other mechanics needed for stepping into truck./
--- NOTE | 2019-01-29 18:14 | PT.OTN ---
Current Diagnoses Strain of muscle, fascia and tendon of right hip, initial encounter (01/29/19) Physical Therapy Treatment Note PT-OP-A Visit Information Start: 10/18/18 18:11 Freq: Status: Active Protocol: Document 01/29/19 09:46 MT (Rec: 01/29/19 11:14 MT [id number]) Out-Patient Physical Therapy Visit Information Visit Information Visit Type Discharge Summary Visit Start Time 09:46 Visit Stop Time 10:35 Total Visit Minutes 49 Visit Number 18 Number of CANAL BOAT CAPTAIN Visits 0 PT-OP-B Current Condition Start: 10/18/18 18:11 Freq: Status: Active Protocol: Document 10/19/18 16:32 AR (Rec: 10/19/18 17:10 AR [id number]) Current Condition History of Current Condition Onset Date 09/25/2018 Current Complaints R groin pain, inc in R knee pain, decreased ROM, impaired balance History of Current Condition Pt fell off roof about 3 weeks ago. He did not go to urgent care until a couple weeks after the incident. Recent imaging shows no fracture or hip OA. Pt reports he has had an increase in pain in his R knee since the fall (hx of TKA , pain prior to fall). He is having pain with walking, mostly in his knee. He is unable to step into a car w/o significant pain and he was previously unable to step into truck. He was able to get into his truck today but had significant pain. Pt reports posterior hip pain while walking which eases with stretching into a small squat range. Pt also reports inc pain in posterior hip with extended sitting. Treatment Goals Patient/Caregiver Goals Increase ROM of RLE to WNL or at least equal to other side. Be able to get into and out of car w/o pain. Prior Functional Status Baseline Function- ADL's Independent Baseline Function- Mobility Independent Personal Factors Other Personal Factors That May Effect previous joint surgeries (L Therapy/Recovery shoulder x2, R shoulder, R TKA ) PT-OP-C Subjective Start: 10/18/18 18:11 Freq: Status: Active Protocol: Document 01/29/19 09:46 MT (Rec: 01/29/19 11:14 MT [id number]) OP-PT Subjective Patient Comments Patient Comments Pt remarks that he has been feeling good. He has been having an easier time of doing his exericses and getting into his truck. Pt is agreeable to discharge and brought in the exercise papers to go over for his HEP. PT-OP-E Functional Tests Start: 10/18/18 18:11 Freq: Status: Active Protocol: Document 10/19/18 16:32 AR (Rec: 10/19/18 17:10 AR [email or web address]) Functional Tests Functional Gait Assessment Score 22/30 Functional Gait Assessment Impairment 20 to <40% Impaired (Score 19- Rating 24) PT-OP-F Manual Assessment Start: 10/18/18 18:11 Freq: Status: Active Protocol: Document 10/19/18 16:32 AR (Rec: 10/19/18 17:10 AR [email or web address]) Manual Assessments Joint Mobility Assessment Joint Mobility Assessment R hip IR and ER: hard end feel with limited ROM PT-OP-G Mobility & Gait Start: 10/18/18 18:11 Freq: Status: Active Protocol: Document 10/19/18 16:32 AR (Rec: 10/19/18 17:10 AR [email or web address]) OP Mobility Evaluation Bed Mobility Rolling pt able to perform independently, but takes significant effort and time to perform Supine to and from Sit pt able to perform independently, but takes significant effort and time to perform Functional Movements Squats demonstrated proper form within small ROM OP Gait Assessment Gait Gait Assistance Required: Independent Gait Deviations General Gait Pattern Antalgic,Lateral Trunk Lean Factors Limiting Gait Function Factors Limiting Gait Function Limited Range of Motion,Pain Stair Climbing Evaluation Evaluation Level of Assist On Stairs Standby Assistance Devices Stair Climbing Assistive Devices Left Railing,Right Railing Technique/Endurance Stair Climbing Direction Ascend and Descend Stair Climbing Technique Step Over Step Number of Steps Climbed 4 Stair Climbing Set # Repetitions (reps) 2 PT-OP-K Range of Motion Start: 10/18/18 18:11 Freq: Status: Active Protocol: Document 10/19/18 16:32 AR (Rec: 10/19/18 17:10 AR [email or web address]) Hip Goniometric Range of Motion Hip Right Active Hip ROM WFL No Testing Position supine (flex), seated (IR/ER) Flexion w/Knee Flexed 70 Internal Rotation 10 External Rotation 33 Left Active Hip ROM WFL No Flexion w/Knee Flexed 110 Internal Rotation 15 External Rotation 25 Knee Goniometric Range of Motion Knee Right Flexion Active (degrees) 120 Left Flexion Active (degrees) 135 PT-OP-M Strength Start: 10/18/18 18:11 Freq: Status: Active Protocol: Document 12/13/18 09:21 [facility] (Rec: 12/13/18 12:15 [facility] [id number]) Hip Strength Hip Manual Muscle Testing Right Flexion (L2) 4- Good- Extension (S1) 3+ Fair+ Abduction 3+ Fair+ External Rotation 5 Normal Internal Rotation 5 Normal Left Flexion (L2) 4+ Good+ Extension (S1) 3+ Fair+ Abduction 3+ Fair+ External Rotation 5 Normal Internal Rotation 5 Normal Knee Strength Knee Manual Muscle Testing Left Flexion (S2) 4+ Good+ Extension (L3) 5 Normal Right Flexion (S2) 4+ Good+ Extension (L3) 4+ Good+ PT-OP-Q Treatments Start: 10/18/18 18:11 Freq: Status: Active Protocol: Document 01/29/19 09:46 MT (Rec: 01/29/19 11:14 MT [id number]) Therapeutic Exercises Supine Exercises eccentric hip flexion Supine Exercise Name SKTC w/ slow eccentric lower into ext Side right Reps/Minutes 10 Comments added to HEP Standing Exercises step ups/taps Standing Exercise Name lateral taps onto box Side right Equipment Used 12 inch box Reps/Minutes 15 Comments cueing for controlled movement resisted hip flexion Standing Exercise Name isometric/concentric hip flexion with foot on 20 inch surface Side right Reps/Minutes 15 Comments pt cued to attempt to lift foot higher than step if possible side stepping Standing Exercise Name side stepping with partial squat Side bilateral Reps/Minutes 20 Comments added to HEP quad/hip flexor stretch Standing Exercise Name lunge hip flexor stretch Side bilateral Reps/Minutes 30 second holds Comments added to HEP Manual Therapy Treatment Soft Tissue Mobilization hip flexors Body Location R hip flexor/ glut/HS Mobilization Type Strumming,Sustained Pressure Intensity/Depth Moderate Body Position Hooklying Comments PROM into hip flexion with sustained pressure into hip flexor region and contract/ hold relax for NM re-education Neuro Re-Education Treatment Balance Activities bosu Details balance at counter Reps/Duration 30 seconds x 2 Comments aded to HEP PT-OP-R Modalities Start: 10/18/18 18:11 Freq: Status: Active Protocol: Document 10/23/18 14:08 AR (Rec: 10/23/18 14:20 AR [email or web address]) Hot Pack/Cold Pack Treatment Cold Pack Location R anterior hip Patient Position Supine Treatment Duration (minutes) 10 PT-OP-T Assessment and Plan Start: 10/18/18 18:11 Freq: Status: Active Protocol: Document 01/29/19 09:46 MT (Rec: 01/29/19 11:14 MT [id number]) Physical Therapy Assessment Goals Walking Short Term Goal (STG) Pt will be able to walk at least 1/4 mile w/o AD, seated rest break or inc in pain no more than 2 points on VAS. 10/2 pt able to walk 15 min STG Duration 12/26/18 Data Services Developer Goal (LTG) Pt will be able to walk 1 mile w/o AD, seated rest break or inc in pain no more than 2 point on VAS. 01/29/19 - not tested LTG Duration 02/12/19 3 Impairment weakness Short Term Goal (STG) Pt will be compliant with HEP STG Duration achieved Data Services Developer Goal (LTG) Pt will demonstrate 5/5 MMT strength to be able to accomplish daily activities. 10/2 improving 01/29/19 - pt still exhibits hip flexor weakness and decreased ROM LTG Duration 02/18/2019 2 Impairment pain Short Term Goal (STG) Pt will be able to step onto a [address] w/o pain in R hip or knee. STG Duration achieved Data Services Developer Goal (LTG) Pt will be able to step into pickup truck w/o pain in R hip . [id number] but has to do it quickly 01/29 - decreased pain achieved, but pt has to perform as a ballistic movement LTG Duration 01/19/2019 1 Impairment decreased dynamic balance Care Home Goal (LTG) Pt will inc DGI by at least 2 points to dec fall risk\ 01/29/19 - not tested LTG Duration 02/12/19 Assessment Summary Assessment Reviewed exercises that pt has been given for HEP and edited HEP to have exercises focused on hip flexor strength and mobility. Pt looks independent with HEP and tolerated exercises well. Pt is agreeable to discharge. Pt continues to be limited with R hip flexor mobility, which was improved with manual therapy of sustained pressure and contract relax technique. Pt continues to show strength deficits with R hip flexors, which is addressed in pt's HEP program to work on at home. Physical Therapy Plan Discharge Physical Therapy Discharge Reasons Plateau in Progress Discharge Comments Pt has reached a plateau with his progress. 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 Pt is agreeable to discharge and continue to working on HEP at home.
== END 2019-04-05 13:24 ==
LOC: PHYS 09:45
PROVIDERS: Family Provider Family Medicine; PCP Family Medicine; Visit Provider Orthopaedic Surgery
DX: S76.011A Strain of muscle, fascia and tendon of right hip, initial encounter (principal)
CPT/HCPCS: 97010; 97110; 97112; 97140; 97162; 97535

== ENCOUNTER → 2019-10-10 07:32 | Outpatient (CLI) | payer MEDICARE, BC, SELFPAY ==
--- NOTE | 2019-10-10 | DI.US.S_ITS ---
PROCEDURE: US EXTREMITY NONVASC LOWER RT INDICATIONS: GANGLION CYST RT GREATER TOE TECHNIQUE: Real-time scanning was performed of the right great toe palpable mass , with image documentation. COMPARISON: None. FINDINGS: Solid heterogeneous mass present corresponding to the palpable abnormality measuring 1.5 x 0.7 x 1.3 cm. Mild vascularity with color flow Doppler. IMPRESSION: 1.5 cm solid heterogeneous mass corresponding to the palpable abnormality. Findings are nonspecific and differential would include both benign and malignant etiologies. If indicated, MRI could be performed for further characterization. Dictated by: Toney KIRKLAND Interpreted: Dorothea Zapata MD on 10/10/2019 at 10:56 Approved by: Dorothea Zapata M.D. on 10/10/2019 at 12:28
== END ==
PROVIDERS: Family Provider Family Medicine; PCP Family Medicine; Referring Provider Podiatrist; Visit Provider Podiatrist
DX: M67.471 Ganglion, right ankle and foot (principal)
CPT/HCPCS: 76882

== ENCOUNTER 2019-10-26 08:52 | Emergency (ER) | payer MEDICARE, BC, SELFPAY ==
[2019-10-26 09:13] VITALS: BP 144/70; PULSE 87; RESP 16; TEMP 37.3; O2SAT 98; BMI 40.6
--- NOTE | 2019-10-26 09:22 | ED_ITS ---
HPI - Pediatric GI General Chief Complaint: Abdominal Pain Stated Complaint: painfully enlarged left testicle Time Seen by Provider: 10/26/19 09:09 Source: patient Mode of arrival: Ambulatory Limitations: no limitations History of Present Illness HPI narrative: The patient was working at home yesterday, he injured his scrotum home moving a box. Specifically, he has swelling and discomfort to the left testicle. He took a medication for pain yesterday, does not feel like he has a need for pain medications at this time. He has significant swelling to the left testicle. The right hemiscrotum seems unaffected. He has no pain or swelling to the phallus. He occasionally experiences lower abdominal discomfort, not consistently. He denies recent illness. He is treated for hypertension, he has diet-controlled type 2 diabetes. Related Data Home Medications Medication Instructions Recorded Confirmed hydrochlorothiazide 25 mg PO QDAY #0 06/15/16 losartan 100 mg PO QDAY #0 06/15/16 lovastatin 40 mg PO QPM #0 06/15/16 meloxicam [Mobic] 7.5 mg PO PRN PRN #0 06/15/16 metformin [Glucophage XR] 1,000 mg PO BID #0 06/15/16 vitamins A,C,Q-dshw-uvuptr 1 cap PO BID #0 06/15/16 [PreserVision AREDS] amoxicillin #0 06/16/17 Previous Rx's Medication Instructions Recorded aspirin 81 mg PO BID #60 07/01/16 neomycin-polymyxin B-dexameth 2 - 3 drp OP TID #10 ml 06/16/17 ciprofloxacin HCl [Cipro] 250 mg PO BID #20 tab 10/26/19 Allergies Allergy/AdvReac Type Severity Reaction Status Date / Time ELIZABET Inhibitors AdvReac Unknown DRY COUGH Unverified 06/22/17 12:28 [ELIZABET INHIBITORS] Pediatric Review of Systems Limitations: All systems reviewed & are unremarkable except as noted in HPI and below Constitutional: Reports other (No recent illness.); Denies fever and chills Cardiovascular: Denies chest pain Respiratory: Denies cough and dyspnea Gastrointestinal: Reports other (Intermittent, mild, lower abdominal discomfort.); Denies nausea and vomiting Genitourinary: Reports testicular pain and testicular swelling; Denies dysuria and penile swelling Musculoskeletal: Denies back pain Integumentary: Denies rash and lesions Patient History Medical History (Updated 10/26/19 @ 12:23 by Willam Lund MD) DM (diabetes mellitus) (Acute) Fusion of lumbar spine (Acute) HTN (hypertension) (Acute) Hyperlipidemia (Acute) Osteoarthritis (Acute) Painful total knee replacement, right (Acute) Right bundle branch block (Acute) Sleep apnea (Acute) Surgical History History of total replacement of right shoulder joint (Acute) S/p reverse total shoulder arthroplasty (Acute) Social History Smoking Status: Never smoker Smoking Status: Never smoker alcohol intake frequency: 0-2 drinks per day Substance Use Type: does not use Pediatric Exam Initial Vital Signs Initial Vital Signs: Vital Signs Temperature 99.1 F 10/26/19 09:13 Pulse Rate 87 10/26/19 09:13 Respiratory Rate 16 10/26/19 09:13 Blood Pressure 144/70 H 10/26/19 09:13 Pulse Oximetry 98 10/26/19 09:13 General Limitations: no limitations Abdominal Exam Abdominal exam: Present soft; Absent distention, tenderness and guarding Male exam: Present other (The right hemiscrotum is atraumatic. Left hemiscrotum indicates significant swelling and tenderness to the testicle. The phallus is circumcised, normal.) Skin Skin exam: Present warm and dry; Absent rash and erythema Course Orders Ordered: ED Orders 10/26/19 09:41 Urine Culture Stat Urine Microscopic Stat Vital Signs Vital signs: Vital Signs - 8 hr 10/26/19 11:22 10/26/19 12:30 Temperature 98.7 F Pulse Rate 55 L 65 Respiratory Rate 16 18 Blood Pressure 138/64 138/64 Pulse Oximetry 98 99 Medical Decision Making Lab Data Labs: Lab Results 10/26/19 Range/Units 09:41 Urine RBC 0-1/hpf (0-5/HPF) Urine WBC 30-100/hpf H (0-5/HPF) Ur Squamous Epith Cells 0-1 /hpf (0-5/HPF) Urine Bacteria Few (2-10) H (None) Ur Culture Indicated? Specimen cultured Urine Dip Bedside Urine Glucose Negative Bedside Urine Bilirubin - Negative Bedside Urine Ketone - Negative Urine Specific Paramount 1.015 Bedside Urine Occult Blood +/- Bedside Urine pH 7 Bedside Urine Protein - Negative Bedside Urine Urobilinogen - Negative Bedside Urine Nitrite - Negative Bedside Urine Leukocytes +++ 500 Esterase Point of care testing: Urine Dip Bedside Urine Glucose Negative Bedside Urine Bilirubin - Negative Bedside Urine Ketone - Negative Urine Specific Paramount 1.015 Bedside Urine Occult Blood +/- Bedside Urine pH 7 Bedside Urine Protein - Negative Bedside Urine Urobilinogen - Negative Bedside Urine Nitrite - Negative Bedside Urine Leukocytes +++ 500 Esterase Imaging Data Scrotum ultrasound: Radiologist's Impression: [address] [address] Ultrasound Report Signed Patient: Ross Hernandez GMR#: [id number] : 8Acct:[id number] Age/Sex: 73 / MDate of Service: 10/26/19 Loc: ED Accession Number: [id number] Procedure: US scrotum Ordering Provider: Willam Lund MD PROCEDURE: US SCROTUM INDICATIONS: Blunt trauma to the scrotum. TECHNIQUE: Real-time scanning was performed of the scrotum and testicles, with image documentation. Color and pulse Doppler interrogation was performed of both testicles. COMPARISON: None. FINDINGS: Right: Testicle is normal in size at 4.7 x 2.5 x 3.2 cm, and homogenous in echotexture. Epididymis is normal in overall size and morphology. Small to moderate right- sided hydrocele is seen. No varicoceles. Overlying scrotal skin is normal in thickness. Left: Testicle is normal in size at 3.4 x 3.7 x 3.8 cm, and homogeneous in echotexture. Epididymis is normal in overall size and morphology. Moderate left-sided hydrocele is seen with internal septation. Left-sided varicoceles are also noted.. Overlying scrotal skin is normal in thickness. Doppler: Color and pulse Doppler demonstrate normal and symmetric arterial flow in both testicles. Increased vascularity in left epididymis is seen. 4 mm left epididymal cyst is noted. IMPRESSION: 1. Small to moderate right simple hydrocele and complex appearing small to moderate left-sided hydrocele. Left-sided varicocele. 2. No evidence of testicular torsion. No discrete testicular lesion. 3. Suggestion of left epididymitis. Dictated by: Naresh Mcgrath M.D. on 10/26/2019 at 9:33 Approved by: Naresh Mcgrath M.D. on 10/26/2019 at 9:41 Discharge Plan Departure Patient Disposition: Home Clinical Impression: Epididymitis, left, Spermatocele, Hydrocele Discharge Date/Time: 10/26/19 12:30 Instructions: DI for Epididymitis, DI for Hydrocele-Adult Activity Restrictions/Additional Instructions: Cipro 2 times daily for 10 days. Drink plenty of water, you should stay well hydrated. Recheck with your urologist about 2 weeks, return here if symptoms escalate. Prescriptions: New ciprofloxacin HCl [Cipro] 250 mg tablet 250 mg PO BID Qty: 20 RF: 0 No Action metformin [Glucophage XR] 500 MG tablet extended release 24 hr 1,000 mg PO BID Qty: 0 RF: 0 lovastatin 40 MG tablet 40 mg PO QPM Qty: 0 RF: 0 vitamins A,C,[id number] [PreserVision AREDS] 1 EACH capsule 1 cap PO BID Qty: 0 RF: 0 meloxicam [Mobic] 7.5 MG tablet 7.5 mg PO PRN PRNQty: 0 RF: 0 hydrochlorothiazide 25 MG tablet 25 mg PO QDAY Qty: 0 RF: 0 losartan 100 MG tablet 100 mg PO QDAY Qty: 0 RF: 0 aspirin 81 MG tablet,delayed release (DR/EC) 81 mg PO BID Qty: 60 RF: 0 amoxicillin 500 MG capsule Qty: 0 RF: 0 neomycin-polymyxin B-dexameth 5 ML drops,suspension 2 - 3 drp OP TID Qty: 10 RF: 0 Referrals: Sourav Gamboa MD [Primary Care Provider] - Carmelita Wright MD [Non-Staff] -
[2019-10-26 10:04] LABS: Bacteria Urine Few (2-10); Culture Indicated Urine Specimen Cultured; RBC Urine 0-1/HPF (0-5/HPF); Squamous Epithelial Cell Urine 0-1 /HPF (0-5/HPF); WBC Urine 30-100/HPF (0-5/HPF)
[2019-10-26 11:22] VITALS: BP 138/64; PULSE 55; RESP 16; O2SAT 98
[2019-10-26 12:30] VITALS: BP 138/64; PULSE 65; RESP 18; TEMP 37.1; O2SAT 99
== END 2019-10-26 12:30 | disposition home or self-care (01) ==
PROVIDERS: Emergency Provider Emergency Medicine; Family Provider Family Medicine; PCP Family Medicine
DX: N43.40 Spermatocele of epididymis, unspecified (principal); N45.1 Epididymitis; N43.3 Hydrocele, unspecified; R10.30 Lower abdominal pain, unspecified; I10 Essential (primary) hypertension; E11.9 Type 2 diabetes mellitus without complications
CPT/HCPCS: 76870; 81003; 81015; 87077; 87086; 87185; 87186; 99282; 99283

== ENCOUNTER → 2019-10-30 10:51 | Outpatient (CLI) | payer MEDICARE, BC, SELFPAY ==
--- NOTE | 2019-10-30 | DI.MRI.S_ITS ---
PROCEDURE: MR FOOT RT WO/W CON INDICATIONS: BENEIGN NEOPLASM OF RIGHT TOE TECHNIQUE: Noncontrast coronal T1 spin echo and STIR, sagittal T1 spin echo with fat saturation and STIR, axial T1 spin echo and T2 fast spin echo with fat saturation. After the administration of contrast, axial/sagittal/coronal T1 spin echo with fat saturation through the right foot. COMPARISON: [facility] [place], CR, XR FOOT 3+ VIEWS RIGHT, 01/05/2017, 10:29. [facility] [place], CR, XR TOE(S) RIGHT, 01/05/2017, 11:01. FINDINGS: Image quality: Excellent. Bones: The visualized bone marrow demonstrates normal signal on all sequences. The overlying cortex appears intact. No abnormal intraosseous enhancement. 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 Hallux sesamoid marrow signal intensity within normal limits. Soft tissues: T1 hypointense, T2 hyperintense and heterogeneously , mostly peripherally enhancing ovoid lesion seen dorsal to the 1st MTP joint, for example image 21/4. This measures approximately 1.9 x 0.8 x 2.2 cm . IMPRESSION: Ill-defined peripherally enhancing lesion dorsal to the 1st MTP joint, technically nonspecific although this could be complex ganglion or synovial cyst, however cannot exclude benign and malignant neoplasm. An infectious process is thought to be less likely. Recommend correlation to clinical history and exam findings. Recommend clinical management. 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 on 10/30/2019 at 14:32 Approved by: Dany Howard M.D. on 10/30/2019 at 14:41
== END ==
PROVIDERS: Family Provider Family Medicine; PCP Family Medicine; Referring Provider Podiatrist; Visit Provider Podiatrist
DX: D36.7 Benign neoplasm of other specified sites (principal); M19.072 Primary osteoarthritis, left ankle and foot
CPT/HCPCS: 73720; A9579

== ENCOUNTER 2019-11-26 08:06 | Emergency (ER) | payer MEDICARE, BC, SELFPAY ==
[2019-11-26] VITALS (10 sets, daily range): BP systolic 140–162; BP diastolic 68–85; PULSE 75–85; RESP 15; TEMP 36.6; O2SAT 95–99; BMI 39.9
--- NOTE | 2019-11-26 08:34 | ED.LOWEXIN ---
HPI - Extremity Injury (Lower) General Chief Complaint: Extremity Injury, Lower Stated Complaint: LEFT HIP/LEG PAIN,LIMITED MOVEMENT Time Seen by Provider: 11/26/19 08:18 Source: patient Mode of arrival: Wheelchair Limitations: no limitations History of Present Illness HPI Narrative: The patient presents with left anterior hip and left lateral hip pain. He was out walking about yesterday he had no problems. He rolled over in bed this morning, he felt a pop. He now has the anterior hip pain. He has pain in the left lateral hip, radiating down the left leg to his calf. The pain is not extending to the left foot. He has no numbness or weakness. He denies urinary incontinence. He has no associated back pain. He has a prior history of bilateral shoulder replacements, knee replacement and lumbar surgery. He has no history of chronic hip problems. He was recently seen here for epididymitis, he has no ongoing complaints, he has had follow-up with his physician regarding that issue. Related Data Home Medications Medication Instructions Recorded Confirmed hydrochlorothiazide 25 mg PO QDAY #0 06/15/16 losartan 100 mg PO QDAY #0 06/15/16 lovastatin 40 mg PO QPM #0 06/15/16 meloxicam [Mobic] 7.5 mg PO PRN PRN #0 06/15/16 metformin [Glucophage XR] 1,000 mg PO BID #0 06/15/16 vitamins A,C,U-bwoz-gczzvp 1 cap PO BID #0 06/15/16 [PreserVision AREDS] amoxicillin #0 06/16/17 Previous Rx's Medication Instructions Recorded aspirin 81 mg PO BID #60 07/01/16 neomycin-polymyxin B-dexameth 2 - 3 drp OP TID #10 ml 06/16/17 ciprofloxacin HCl [Cipro] 250 mg PO BID #20 tab 10/26/19 hydrocodone-acetaminophen [[place]] 1 tab PO Q4-6H PRN #20 tab 11/26/19 Allergies Allergy/AdvReac Type Severity Reaction Status Date / Time ELIZABET Inhibitors AdvReac Unknown DRY COUGH Verified 11/26/19 08:29 [ELIZABET INHIBITORS] Review of Systems Constitutional Constitutional: Denies chills, Denies fever(s) and Denies weakness Cardiovascular Cardiovascular: Denies dyspnea Respiratory Respiratory: Denies cough and Denies dyspnea Gastrointestinal Gastrointestinal: Denies abdominal pain, Denies change in bowel habits, Denies diarrhea, Denies nausea and Denies vomiting Genitourinary Comments: No ongoing genital pain, see HPI. No dysuria. Musculoskeletal Musculoskeletal: Denies numbness Comments: See HPI. Integumentary/Breasts Skin/Breast: Denies erythema and Denies rash Neurologic Neurologic: Denies numbness and Denies weakness Patient History Medical History (Updated 11/26/19 @ 10:52 by Willam Lund MD) DM (diabetes mellitus) (Acute) Fusion of lumbar spine (Acute) HTN (hypertension) (Acute) Hyperlipidemia (Acute) Osteoarthritis (Acute) Painful total knee replacement, right (Acute) Right bundle branch block (Acute) Sleep apnea (Acute) Surgical History (Updated 11/26/19 @ 10:41 by Willam Lund MD) History of total replacement of right shoulder joint (Acute) S/p reverse total shoulder arthroplasty (Acute) Social History Smoking Status: Never smoker Smoking Status: Never smoker alcohol intake frequency: 0-2 drinks per day Substance Use Type: does not use Exam Initial Vital Signs Initial Vital Signs: Vital Signs Pulse Rate 85 11/26/19 08:12 Pulse Oximetry 99 11/26/19 08:12 Const General: No acute distress and No ill appearing Back/Spine/Pelvis Other: No palpable lumbar tenderness. Skin General: no rashes or lesions noted and No petechiae Neuro General: patient alert, patient oriented x3, gait normal and no focal motor deficits Speech: speech normal Extrem Other: Tenderness in the left groin, as left as the left lateral hip. Range of motion the left hip is normal. There is no palpable deformity. There is no shortening or malrotation. Left dorsalis pedis pulse is normal. Psych Appearance: well kempt Mental Status: mental status grossly normal Attitude: cooperative Thought Content: normal Judgment: judgment good Course Course Course Narrative: The patient has a left groin strain, as well as left and right hip osteoarthritis. He will be discharged on [place]. He is advised use crutches if he has difficulty walking. He is advised to contact his physician to arrange physical therapy. Orders Ordered: ED Orders 11/26/19 08:34 XR hip w pel if done LT 2V Stat Discontinued Medications Hydrocodone Bitart/Acetaminophen ([place] 5/325) 1 tab PO NOW ONE Stop: 11/26/19 10:38 Last Admin: 11/26/19 10:45 Dose: 1 tab Documented by: GIL Vital Signs Vital signs: Vital Signs - 8 hr 11/26/19 08:12 11/26/19 08:13 11/26/19 08:14 Temperature 97.9 F Pulse Rate 85 84 85 Respiratory Rate 15 Blood Pressure 162/68 H 162/68 H Pulse Oximetry 99 97 99 11/26/19 08:30 11/26/19 08:59 11/26/19 09:00 Temperature Pulse Rate 80 78 80 Respiratory Rate Blood Pressure 149/85 H 158/72 H Pulse Oximetry 98 97 97 11/26/19 09:01 11/26/19 09:30 11/26/19 10:00 Temperature Pulse Rate 76 75 77 Respiratory Rate Blood Pressure 140/80 143/78 H 146/83 H Pulse Oximetry 96 95 97 11/26/19 10:30 Temperature Pulse Rate 78 Respiratory Rate Blood Pressure 149/76 H Pulse Oximetry 96 MDM - Extremity Injury (Lower) Imaging Data Pelvis/left hip XR: Radiologist's Impression: 38 Willam Lund MD Find Patient Imaging - Ross Hernandez 73 M 1945 ACTIVITY DATE EXAM STATUS AUTHOR 11/26/19 08:34 Signed Call,[place] [phone] XRay Report Signed Patient: Ross Hernandez GMR#: [id number] : 8Acct:[id number] Age/Sex: 73 / MDate of Service: 11/26/19 Loc: ED Accession Number: [id number] Procedure: XR hip w pel if done LT 2V Ordering Provider: Willam Lund MD PROCEDURE: XR HIP W PEL IF DONE LT 2V INDICATIONS: Left hip/groin pain TECHNIQUE: AP pelvis with lateral view(s) of the left hip(s). COMPARISON: None. FINDINGS: Bones: No fractures or dislocations. Pelvic ring appears intact. No suspicious bony lesions. No avascular necrosis of the left femoral head. Mild bilateral hip joint space narrowing. Acetabular roof sclerosis and cystic change. Right L4-L5 pedicle screws seen. Soft tissues: The visualized bowel gas pattern is normal. No suspicious soft tissue calcifications. IMPRESSION: No acute osseous abnormality. [id number] bilateral hip DJD. Dictated by: Zi Connelly M.D. on 11/26/2019 at 8:55 Approved by: Zi Connelly M.D. on 11/26/2019 at 8:56 Discharge Plan Departure Patient Disposition: Home Clinical Impression: Strain of left hip Qualifiers: Encounter type: initial encounter Qualified Code(s): S76.012A - Strain of muscle, fascia and tendon of left hip, initial encounter Osteoarthritis of hips, bilateral Qualifiers: Osteoarthritis type: primary Qualified Code(s): M16.0 - Bilateral primary osteoarthritis of hip Discharge Date/Time: 11/26/19 11:10 Instructions: DI for Hip Pain Activity Restrictions/Additional Instructions: Tylenol 2 tablets every 4 hours as needed for pain. [place] every 4 hours for added pain control. When you use a [place], subtract 1 Tylenol from your dosing. I would recommend use crutches when up and about. Contact her doctor as soon as possible. Talk to your doctor about arranging physical therapy for the hip discomfort. Prescriptions: New hydrocodone-acetaminophen [[place]] 5-325 mg tablet 1 tab PO Q4-6H PRN (Reason: pain) Qty: 20 RF: 0 No Action metformin [Glucophage XR] 500 MG tablet extended release 24 hr 1,000 mg PO BID Qty: 0 RF: 0 lovastatin 40 MG tablet 40 mg PO QPM Qty: 0 RF: 0 vitamins A,C,W-ncim-flraet [PreserVision AREDS] 1 EACH capsule 1 cap PO BID Qty: 0 RF: 0 meloxicam [Mobic] 7.5 MG tablet 7.5 mg PO PRN PRNQty: 0 RF: 0 hydrochlorothiazide 25 MG tablet 25 mg PO QDAY Qty: 0 RF: 0 losartan 100 MG tablet 100 mg PO QDAY Qty: 0 RF: 0 aspirin 81 MG tablet,delayed release (DR/EC) 81 mg PO BID Qty: 60 RF: 0 amoxicillin 500 MG capsule Qty: 0 RF: 0 neomycin-polymyxin B-dexameth 5 ML drops,suspension 2 - 3 drp OP TID Qty: 10 RF: 0 ciprofloxacin HCl [Cipro] 250 mg tablet 250 mg PO BID Qty: 20 RF: 0 Referrals: Sourav Gamboa MD [Primary Care Provider] -
[2019-11-26] MEDS: HYDROCODONE/ACET 5/325 TABLET 1 TAB PO (10:45)
== END 2019-11-26 11:10 | disposition home or self-care (01) ==
PROVIDERS: Emergency Provider Emergency Medicine; Family Provider Family Medicine; PCP Family Medicine
DX: S76.012A Strain of muscle, fascia and tendon of left hip, initial encounter (principal); M16.0 Bilateral primary osteoarthritis of hip
CPT/HCPCS: 73502; 99283

== ENCOUNTER 2020-01-09 10:30 | Outpatient (RCR) | payer MEDICARE, BC, SELFPAY ==
--- NOTE | 2019-12-18 18:32 | PT.OIE ---
Current Diagnoses Pain in right leg (12/18/19) Pain in left leg (12/18/19) Difficulty in walking, not elsewhere classified (12/18/19) Abnormal posture (12/18/19) Weakness (12/18/19) Past Medical History (Last Reviewed 11/26/19 @ 10:40 by Willam Lund MD) DM (diabetes mellitus) (Acute) Fusion of lumbar spine (Acute) HTN (hypertension) (Acute) Hyperlipidemia (Acute) Osteoarthritis (Acute) Painful total knee replacement, right (Acute) Right bundle branch block (Acute) Sleep apnea (Acute) Past Surgical History (Last Reviewed 10/26/19 @ 09:24 by Willam Lund MD) History of total replacement of right shoulder joint (Acute) S/p reverse total shoulder arthroplasty (Acute) Visit Care Team Role Provider Type Sourav Gamboa MD Attending Provider Non-Staff Family Provider Primary Care Provider Referring Provider Specialty: Medical Address: [address] [place] [address], [facility] Email: Physical Therapy Initial Evaluation PT-OP-A Visit Information Start: 12/12/19 07:41 Freq: Status: Active Protocol: Document 12/18/19 11:23 [facility] (Rec: 12/18/19 12:16 [facility] [id number]) Out-Patient Physical Therapy Visit Information Visit Information Visit Type Initial Evaluation Visit Note 03/23 Visit Start Time 11:20 Visit Stop Time 12:10 Total Visit Minutes 50 Visit Number 1 Number of COMMISSION AUDITOR Visits 0 PT-OP-B Current Condition Start: 12/12/19 07:41 Freq: Status: Active Protocol: Document 12/18/19 11:23 [facility] (Rec: 12/18/19 12:16 [facility] [id number]) Current Condition History of Current Condition History of Current Condition On the Am of 11/25 pt rolled over and felt B hip pops and had difficulty WB ability. He has had B adductor pain. He has had significant weakness with getting out of a chair and requires his UEs and requires rail for stairs. Pt reprots pain post R leg when driving which he thinks may have started when he fell trying to help his in the hallway. Pt has pain in post thigh with sitting. Pt reprots he has been trying very hard to stretch and exercise daily for 30-45 min (exHS stretches & squats). Pain is more severe after this. Step up into the house has become increasingly difficult. Has started some SLS exercises at home. Pt does okay with wakling on flat surface but not unevne. Pt reprots walking is more of a jaring motion now he feels. Prior Treatments and Tests Xrays of hips-no ortho follow up & testicle imaging-seeing urologist Future Testing and Treatments Planned possible B foot surgery for 1st digit Treatment Goals Patient/Caregiver Goals abilityt o walk/hike at least 1 mile, be able to trot, improve balance & strength & ROM, be ground mobile Personal Factors Other Personal Factors That May Effect hx: R TKA, lumbar fusion, Therapy/Recovery epididymitis from dropping heavy box, B foot pain & arthritis, B knee pain. back pain, diabetes, RA & EO tears 50 years ago PT-OP-C Subjective Start: 12/12/19 07:41 Freq: Status: Active Protocol: Document 12/18/19 11:23 [facility] (Rec: 12/18/19 12:16 [facility] [id number]) OP-PT Pain Assessment Location adductors Pain Location Details B up by pelvic bone Description- Other like a tendon tear or pull Frequency Frequent Pain Aggravating Factors Sitting,Stair Climbing Other Pain Aggravating Factors uneven ground, up/down hill Pain Alleviating Factors None R hip Pain Location Details R ischial tuberosity Description- Other increases in grade over time starting at 5/10-higher Frequency Intermittent Radiating Location post thigh into calf Variations/Patterns R ant thigh & R knee pain also Pain Aggravating Factors Sitting Other Pain Aggravating Factors driving, step up into truck or stairs, sit>stand Pain Alleviating Factors Standing PT-OP-D Balance Start: 12/12/19 07:41 Freq: Status: Active Protocol: Document 12/18/19 11:23 [facility] (Rec: 12/18/19 12:16 [facility] [id number]) Balance Tests Melton Balance Test Melton Balance Test Score 46 Melton Impairment Rating 1 to 19% Impaired (Score 45-55 ) Single Limb Standing Single Limb- Right 2 Single Limb- Left 11 PT-OP-E Functional Tests Start: 12/12/19 07:41 Freq: Status: Active Protocol: Document 12/18/19 11:23 [facility] (Rec: 12/18/19 12:16 [facility] [id number]) Functional Tests 30 Second Sit to Stand Test Score 7 Comments bermudez chair Dynamic Gait Index (DGI) Score 20 Five Times Sit to Stand Test Score 19 sec Comments bermudez chair Functional Gait Assessment Score 19 PT-OP-G Mobility & Gait Start: 12/12/19 07:41 Freq: Status: Active Protocol: Document 12/18/19 11:23 [facility] (Rec: 12/18/19 12:16 [facility] [id number]) OP Mobility Evaluation Transfers Sit to Stand uses hands and is labored OP Gait Assessment Comments Gait Comments Pt amb w/lat leaning B during gait with dec overall push off . Dec stance time LLE PT-OP-J Posture/Palpation/Skin Start: 12/12/19 07:41 Freq: Status: Active Protocol: Document 12/18/19 11:23 [facility] (Rec: 12/18/19 12:16 [facility] [id number]) Posture Evaluation Margaux Postural Classification System Lumbar Protective Mechanism Left AP 0 Lumbar Protective Mechanism Right AP 0 Lumbar Protective Mechanism Left PA 0 Lumbar Protective Mechanism Right PA 0 PT-OP-L Special Tests Start: 12/12/19 07:41 Freq: Status: Active Protocol: Document 12/18/19 11:23 [facility] (Rec: 12/18/19 12:16 [facility] [id number]) Special Tests Lumbar Spine Special Tests Slump Test Results neg but tightness R side Straight Leg Raise Test Results R HS testing PT-OP-M Strength Start: 12/12/19 07:41 Freq: Status: Active Protocol: Document 12/18/19 11:23 [facility] (Rec: 12/18/19 12:16 [facility] [id number]) Hip Strength Hip Manual Muscle Testing Right Flexion (L2) 3 Fair Abduction 3 Fair Adduction 4 Good External Rotation 3+ Fair+ Internal Rotation 4 Good Comments IR B small range Left Flexion (L2) 3+ Fair+ Abduction 3 Fair Adduction 2+ Poor+ External Rotation 4 Good Internal Rotation 4+ Good+ Knee Strength Knee Manual Muscle Testing Left Flexion (S2) 4 Good Extension (L3) 4 Good Right Flexion (S2) 4 Good Extension (L3) 4 Good Ankle/Foot Strength Ankle and Foot Manual Muscle Testing Right Dorsiflexion (L4) 4+ Good+ Plantarflexion (S1) 4+ Good+ Left Dorsiflexion (L4) 4+ Good+ Plantarflexion (S1) 5 Normal Comments seated PF testing PT-OP-T Assessment and Plan Start: 12/12/19 07:41 Freq: Status: Active Protocol: Document 12/18/19 11:23 [facility] (Rec: 12/18/19 12:16 [facility] [id number]) Physical Therapy Assessment Rehab Potential Rehabilitation Potential Good Goals sitting Intermediate Goal (LTG) Pt will report being able to sit for up to 30 min without inc pain in BLE. LTG Duration 02/18/20 Walking Short Term Goal (STG) Pt will be able to walk at least 1/4 mile w/o AD, seated rest break or inc in pain no more than 2 points on VAS. STG Duration 01/19/20 Transliterator Goal (LTG) Pt will be able to walk 1 mile w/o AD, seated rest break or inc in pain no more than 2 point on VAS. LTG Duration 02/18/20 3 Impairment [id number]; FGA Short Term Goal (STG) Pt will score >50 on MELTON to show improved balance and safe for community amb without AD. STG Duration 01/19/20 Transliterator Goal (LTG) Pt will score >25 on FGA to show improvement in balance & dec risk for falls LTG Duration 02/18/20 2 Impairment strength Short Term Goal (STG) Pt will be indep with HEP STG Duration 01/19/20 Transliterator Goal (LTG) Pt will score at least 4+/5 in all planes for LE strength and 2/5 LPM without pain to allow for greater ease in daily activities. LTG Duration 02/18/20 1 Impairment sit<>Stand Short Term Goal (STG) Pt will be able to do 5 sit to stands in 13 sec to show improved LE strength. STG Duration 01/19/20 Intermediate Goal (LTG) Pt will be able to do 12 sit to stands in 30 sec to show dec risk for falls and imrpoved functional LE strength LTG Duration 02/18/20 Assessment Summary Assessment Pt presents with BLE pain with mult injuries that may have caused this pain to have inc to its current more severe condition including a fall in August and a popping noise when rolling over in bed about 1 month ago. He has history of mult injuries, pain, arthritis and surgeries taht are likely to complicate his recovery. He has significantly dec his activity level d/t pain and has pain even with sitting which makes daily activities difficult for him. Pt would benefit from skilled PT to address his balance, LE strength, core strength, LE flexibility, gait mechanics and dec pain. Physical Therapy Plan Frequency and Duration Frequency of Treatment 2x/Week Duration of Treatment 2 months Plan of Care Start Date 12/19/19 Plan of Care End Date 02/18/20 Therapeutic Interventions Therapeutic Interventions Aquatic Therapy,Balance Training,Gait Training,Home Exercise Program,Joint Mobilizations,Manual Therapy, Neuromuscular Re-education, Patient/Caregiver Education, Self-Care/Home Management,Soft Tissue Mobilization,Taping, Therapeutic Activities, Therapeutic Exercises Modalities Cold Pack/Ice Massage,Electric Stimulation,Hot Packs, Infrared Therapy,Iontophoresis ,Ultrasound Next Visit Focus/Plan Next Note Type Treatment Note Next Visit Plan hip ROM B, 6 min walk test, Go over exercises pt is doing at home, gentle LE stretches, core stability exercises, STM to adductors
--- NOTE | 2019-12-18 18:32 | PT.OPPOC ---
Physical, Occupational & Speech Therapy At [facility] Current Diagnoses Pain in right leg (12/18/19) Pain in left leg (12/18/19) Difficulty in walking, not elsewhere classified (12/18/19) Abnormal posture (12/18/19) Weakness (12/18/19) Visit Care Team Role Provider Type Sourav Gamboa MD Attending Provider Non-Staff Family Provider Primary Care Provider Referring Provider Specialty: Medical Address: [address] [place] [address], [id number] Email: Plan Of Care PT-OP-T Assessment and Plan Start: 12/12/19 07:41 Freq: Status: Active Protocol: Document 12/18/19 11:23 [facility] (Rec: 12/18/19 12:16 [facility] [id number]) Physical Therapy Assessment Rehab Potential Rehabilitation Potential Good Goals sitting Shipping And Receiving Goal (LTG) Pt will report being able to sit for up to 30 min without inc pain in BLE. LTG Duration 02/18/20 Walking Short Term Goal (STG) Pt will be able to walk at least 1/4 mile w/o AD, seated rest break or inc in pain no more than 2 points on VAS. STG Duration 01/19/20 Shipping And Receiving Goal (LTG) Pt will be able to walk 1 mile w/o AD, seated rest break or inc in pain no more than 2 point on VAS. LTG Duration 02/18/20 3 Impairment [id number]/56; FGA 30 Short Term Goal (STG) Pt will score >50 on MELTON to show improved balance and safe for community amb without AD. STG Duration 01/19/20 Correction Goal (LTG) Pt will score >25 on FGA to show improvement in balance & dec risk for falls LTG Duration 02/18/20 2 Impairment strength Short Term Goal (STG) Pt will be indep with HEP STG Duration 01/19/20 Shipping And Receiving Goal (LTG) Pt will score at least 4+/5 in all planes for LE strength and 2/5 LPM without pain to allow for greater ease in daily activities. LTG Duration 02/18/20 1 Impairment sit<>Stand Short Term Goal (STG) Pt will be able to do 5 sit to stands in 13 sec to show improved LE strength. STG Duration 01/19/20 Correction Goal (LTG) Pt will be able to do 12 sit to stands in 30 sec to show dec risk for falls and imrpoved functional LE strength LTG Duration 02/18/20 Assessment Summary Assessment Pt presents with BLE pain with mult injuries that may have caused this pain to have inc to its current more severe condition including a fall in August and a popping noise when rolling over in bed about 1 month ago. He has history of mult injuries, pain, arthritis and surgeries taht are likely to complicate his recovery. He has significantly dec his activity level d/t pain and has pain even with sitting which makes daily activities difficult for him. Pt would benefit from skilled PT to address his balance, LE strength, core strength, LE flexibility, gait mechanics and dec pain. Physical Therapy Plan Frequency and Duration Frequency of Treatment 2x/Week Duration of Treatment 2 months Plan of Care Start Date 12/19/19 Plan of Care End Date 02/18/20 Therapeutic Interventions Therapeutic Interventions Aquatic Therapy,Balance Training,Gait Training,Home Exercise Program,Joint Mobilizations,Manual Therapy, Neuromuscular Re-education, Patient/Caregiver Education, Self-Care/Home Management,Soft Tissue Mobilization,Taping, Therapeutic Activities, Therapeutic Exercises Modalities Cold Pack/Ice Massage,Electric Stimulation,Hot Packs, Infrared Therapy,Iontophoresis ,Ultrasound Next Visit Focus/Plan Next Note Type Treatment Note Next Visit Plan hip ROM B, 6 min walk test, Go over exercises pt is doing at home, gentle LE stretches, core stability exercises, STM to adductors Plan of Care Dates Plan of Care Start Date 12/19/19 Plan of Care End Date 02/18/20 Electronically Signed by: Denia Low, PT 12/19/19 [id number] Please Sign and Return: I have reviewed this Plan of Care and certify that the skilled therapy services above are required to meet the patient?s needs. Physician Signature Date Printed Name and Credentials Clinical Instructor Signature Printed Name and Credentials
--- NOTE | 2019-12-20 13:32 | PT.OTN ---
Current Diagnoses Pain in right leg (12/20/19) Pain in left leg (12/20/19) Difficulty in walking, not elsewhere classified (12/20/19) Abnormal posture (12/20/19) Weakness (12/20/19) Physical Therapy Treatment Note PT-OP-A Visit Information Start: 12/12/19 07:41 Freq: Status: Active Protocol: Document 12/20/19 10:21 [facility] (Rec: 12/20/19 13:32 [facility] [id number]) Out-Patient Physical Therapy Visit Information Visit Information Visit Type Treatment Note Visit Note 04/23 Visit Start Time 09:48 Visit Stop Time 10:35 Total Visit Minutes 47 Visit Number 2 Number of ART SALES CONSULTANT Visits 0 PT-OP-B Current Condition Start: 12/12/19 07:41 Freq: Status: Active Protocol: Document 12/18/19 11:23 [facility] (Rec: 12/18/19 12:16 [facility] [id number]) Current Condition History of Current Condition History of Current Condition On the Am of 11/25 pt rolled over and felt B hip pops and had difficulty WB ability. He has had B adductor pain. He has had significant weakness with getting out of a chair and requires his UEs and requires rail for stairs. Pt reprots pain post R leg when driving which he thinks may have started when he fell trying to help his in the hallway. Pt has pain in post thigh with sitting. Pt reprots he has been trying very hard to stretch and exercise daily for 30-45 min (exHS stretches & squats). Pain is more severe after this. Step up into the house has become increasingly difficult. Has started some SLS exercises at home. Pt does okay with wakling on flat surface but not unevne. Pt reprots walking is more of a jaring motion now he feels. Prior Treatments and Tests Xrays of hips-no ortho follow up & testicle imaging-seeing urologist Future Testing and Treatments Planned possible B foot surgery for 1st digit Treatment Goals Patient/Caregiver Goals abilityt o walk/hike at least 1 mile, be able to trot, improve balance & strength & ROM, be ground mobile Personal Factors Other Personal Factors That May Effect hx: R TKA, lumbar fusion, Therapy/Recovery epididymitis from dropping heavy box, B foot pain & arthritis, B knee pain. back pain, diabetes, RA & EO tears 50 years ago PT-OP-C Subjective Start: 12/12/19 07:41 Freq: Status: Active Protocol: Document 12/20/19 10:21 [facility] (Rec: 12/20/19 13:32 [facility] [id number]) OP-PT Subjective Patient Comments Patient Comments Pt reports he has more pain in his day after doing his exercises PT-OP-D Balance Start: 12/12/19 07:41 Freq: Status: Active Protocol: Document 12/18/19 11:23 [facility] (Rec: 12/18/19 12:16 [facility] [id number]) Balance Tests Melton Balance Test Melton Balance Test Score 46 Melton Impairment Rating 1 to 19% Impaired (Score 45-55 ) Single Limb Standing Single Limb- Right 2 Single Limb- Left 11 PT-OP-E Functional Tests Start: 12/12/19 07:41 Freq: Status: Active Protocol: Document 12/18/19 11:23 [facility] (Rec: 12/18/19 12:16 [facility] [id number]) Functional Tests 30 Second Sit to Stand Test Score 7 Comments bermudez chair Dynamic Gait Index (DGI) Score 20 Five Times Sit to Stand Test Score 19 sec Comments bermudez chair Functional Gait Assessment Score 19 PT-OP-G Mobility & Gait Start: 12/12/19 07:41 Freq: Status: Active Protocol: Document 12/18/19 11:23 [facility] (Rec: 12/18/19 12:16 [facility] [id number]) OP Mobility Evaluation Transfers Sit to Stand uses hands and is labored OP Gait Assessment Comments Gait Comments Pt amb w/lat leaning B during gait with dec overall push off . Dec stance time LLE PT-OP-J Posture/Palpation/Skin Start: 12/12/19 07:41 Freq: Status: Active Protocol: Document 12/18/19 11:23 [facility] (Rec: 12/18/19 12:16 [facility] [id number]) Posture Evaluation Margaux Postural Classification System Lumbar Protective Mechanism Left AP 0 Lumbar Protective Mechanism Right AP 0 Lumbar Protective Mechanism Left PA 0 Lumbar Protective Mechanism Right PA 0 PT-OP-K Range of Motion Start: 12/12/19 07:41 Freq: Status: Active Protocol: Document 12/20/19 10:21 [facility] (Rec: 12/20/19 12:11 [facility] [id number]) Hip Goniometric Range of Motion Hip Left Passive Flexion w/Knee Flexed 92 Straight Leg Raise 68 Abduction 20 Right Passive Flexion w/Knee Flexed 96 Straight Leg Raise 74 Abduction 21 Right Active Flexion w/Knee Flexed 68 Straight Leg Raise 32 Abduction 18 Internal Rotation 9 External Rotation 23 Left Active Flexion w/Knee Flexed 90 Straight Leg Raise 48 Abduction 13 Internal Rotation 8 External Rotation 31 PT-OP-L Special Tests Start: 12/12/19 07:41 Freq: Status: Active Protocol: Document 12/18/19 11:23 [facility] (Rec: 12/18/19 12:16 [facility] [id number]) Special Tests Lumbar Spine Special Tests Slump Test Results neg but tightness R side Straight Leg Raise Test Results R HS testing PT-OP-M Strength Start: 12/12/19 07:41 Freq: Status: Active Protocol: Document 12/18/19 11:23 [facility] (Rec: 12/18/19 12:16 [facility] [id number]) Hip Strength Hip Manual Muscle Testing Right Flexion (L2) 3 Fair Abduction 3 Fair Adduction 4 Good External Rotation 3+ Fair+ Internal Rotation 4 Good Comments IR B small range Left Flexion (L2) 3+ Fair+ Abduction 3 Fair Adduction 2+ Poor+ External Rotation 4 Good Internal Rotation 4+ Good+ Knee Strength Knee Manual Muscle Testing Left Flexion (S2) 4 Good Extension (L3) 4 Good Right Flexion (S2) 4 Good Extension (L3) 4 Good Ankle/Foot Strength Ankle and Foot Manual Muscle Testing Right Dorsiflexion (L4) 4+ Good+ Plantarflexion (S1) 4+ Good+ Left Dorsiflexion (L4) 4+ Good+ Plantarflexion (S1) 5 Normal Comments seated PF testing PT-OP-Q Treatments Start: 12/12/19 07:41 Freq: Status: Active Protocol: Document 12/20/19 10:21 [facility] (Rec: 12/20/19 13:32 [facility] [id number]) Therapeutic Exercises Supine Exercises ER Supine Exercise Name hip ER w/focus on core Side bilateral Reps/Minutes 15 Comments comfortable range Sitting Exercises stretch Sitting Exercise Name HS Side bilateral Reps/Minutes 30 sec Standing Exercises HS Standing Exercise Name bent over stretch Side bilateral Reps/Minutes 30 sec squats Standing Exercise Name partial squat Side bilateral Equipment Used rail Reps/Minutes 20 Comments cueing for avoiding knees going over toes Self-Care/Home Management Treatment Education Patient Education Home Exercise Program Other Education edu re: not pushing past light stretch with stretches and edu re: avoiding exercises where his lumbar spine is not stabilized. Discussed importance of gradually starting exercising. Dec reps of what he is doing. Edu on 30 sec required for prolonged stretch PT-OP-T Assessment and Plan Start: 12/12/19 07:41 Freq: Status: Active Protocol: Document 12/20/19 10:21 [facility] (Rec: 12/20/19 13:32 [facility] [id number]) Physical Therapy Assessment Goals sitting Animal Handler Goal (LTG) Pt will report being able to sit for up to 30 min without inc pain in BLE. LTG Duration 02/18/20 Walking Short Term Goal (STG) Pt will be able to walk at least 1/4 mile w/o AD, seated rest break or inc in pain no more than 2 points on VAS. STG Duration 01/19/20 Animal Handler Goal (LTG) Pt will be able to walk 1 mile w/o AD, seated rest break or inc in pain no more than 2 point on VAS. LTG Duration 02/18/20 3 Impairment [id number]/56; FGA 19/30 Short Term Goal (STG) Pt will score >50 on MELTON to show improved balance and safe for community amb without AD. STG Duration 01/19/20 Animal Handler Goal (LTG) Pt will score >25 on FGA to show improvement in balance & dec risk for falls LTG Duration 02/18/20 2 Impairment strength Short Term Goal (STG) Pt will be indep with HEP STG Duration 01/19/20 Halfway Goal (LTG) Pt will score at least 4+/5 in all planes for LE strength and 2/5 LPM without pain to allow for greater ease in daily activities. LTG Duration 02/18/20 1 Impairment sit<>Stand Short Term Goal (STG) Pt will be able to do 5 sit to stands in 13 sec to show improved LE strength. STG Duration 01/19/20 Halfway Goal (LTG) Pt will be able to do 12 sit to stands in 30 sec to show dec risk for falls and imrpoved functional LE strength LTG Duration 02/18/20 Assessment Summary Assessment Pt required a lot of cueing during exercsies for comfortable ranges and neutral lumbar spine. Cueing duirng bent over HS stretch for segemental roll up and down into stretch. Physical Therapy Plan Frequency and Duration Frequency of Treatment 2x/Week Duration of Treatment 2 months Plan of Care Start Date 12/19/19 Plan of Care End Date 02/18/20 Next Visit Focus/Plan Next Note Type Treatment Note Next Visit Plan 6 min walk test, core stability exercises, STM to adductors
--- NOTE | 2019-12-25 09:48 | PT.OTN ---
Current Diagnoses Pain in right leg (12/25/19) Pain in left leg (12/25/19) Difficulty in walking, not elsewhere classified (12/25/19) Abnormal posture (12/25/19) Weakness (12/25/19) Physical Therapy Treatment Note PT-OP-A Visit Information Start: 12/12/19 07:41 Freq: Status: Active Protocol: Document 12/25/19 09:43 [facility] (Rec: 12/25/19 09:48 [facility] [id number]) Out-Patient Physical Therapy Visit Information Visit Information Visit Type Treatment Note Visit Note 05/21 Visit Start Time 09:02 Visit Stop Time 09:41 Total Visit Minutes 39 Visit Number 3 Number of TUNE UP MECHANIC Visits 0 PT-OP-B Current Condition Start: 12/12/19 07:41 Freq: Status: Active Protocol: Document 12/18/19 11:23 [facility] (Rec: 12/18/19 12:16 [facility] [id number]) Current Condition History of Current Condition History of Current Condition On the Am of 11/25 pt rolled over and felt B hip pops and had difficulty WB ability. He has had B adductor pain. He has had significant weakness with getting out of a chair and requires his UEs and requires rail for stairs. Pt reprots pain post R leg when driving which he thinks may have started when he fell trying to help his in the hallway. Pt has pain in post thigh with sitting. Pt reprots he has been trying very hard to stretch and exercise daily for 30-45 min (exHS stretches & squats). Pain is more severe after this. Step up into the house has become increasingly difficult. Has started some SLS exercises at home. Pt does okay with wakling on flat surface but not unevne. Pt reprots walking is more of a jaring motion now he feels. Prior Treatments and Tests Xrays of hips-no ortho follow up & testicle imaging-seeing urologist Future Testing and Treatments Planned possible B foot surgery for 1st digit Treatment Goals Patient/Caregiver Goals abilityt o walk/hike at least 1 mile, be able to trot, improve balance & strength & ROM, be ground mobile Personal Factors Other Personal Factors That May Effect hx: R TKA, lumbar fusion, Therapy/Recovery epididymitis from dropping heavy box, B foot pain & arthritis, B knee pain. back pain, diabetes, RA & EO tears 50 years ago PT-OP-C Subjective Start: 12/12/19 07:41 Freq: Status: Active Protocol: Document 12/25/19 09:43 [facility] (Rec: 12/25/19 09:48 [facility] [id number]) OP-PT Subjective Patient Comments Patient Comments Pt reports less inc in pain after exercises after adjustments PT-OP-D Balance Start: 12/12/19 07:41 Freq: Status: Active Protocol: Document 12/18/19 11:23 [facility] (Rec: 12/18/19 12:16 [facility] [id number]) Balance Tests Melton Balance Test Melton Balance Test Score 46 Melton Impairment Rating 1 to 19% Impaired (Score 45-55 ) Single Limb Standing Single Limb- Right 2 Single Limb- Left 11 PT-OP-E Functional Tests Start: 12/12/19 07:41 Freq: Status: Active Protocol: Document 12/18/19 11:23 [facility] (Rec: 12/18/19 12:16 [facility] [id number]) Functional Tests 30 Second Sit to Stand Test Score 7 Comments bermudez chair Dynamic Gait Index (DGI) Score 20 Five Times Sit to Stand Test Score 19 sec Comments bermudez chair Functional Gait Assessment Score 19 PT-OP-G Mobility & Gait Start: 12/12/19 07:41 Freq: Status: Active Protocol: Document 12/18/19 11:23 [facility] (Rec: 12/18/19 12:16 [facility] [id number]) OP Mobility Evaluation Transfers Sit to Stand uses hands and is labored OP Gait Assessment Comments Gait Comments Pt amb w/lat leaning B during gait with dec overall push off . Dec stance time LLE PT-OP-J Posture/Palpation/Skin Start: 12/12/19 07:41 Freq: Status: Active Protocol: Document 12/18/19 11:23 [facility] (Rec: 12/18/19 12:16 [facility] [id number]) Posture Evaluation Margaux Postural Classification System Lumbar Protective Mechanism Left AP 0 Lumbar Protective Mechanism Right AP 0 Lumbar Protective Mechanism Left PA 0 Lumbar Protective Mechanism Right PA 0 PT-OP-K Range of Motion Start: 12/12/19 07:41 Freq: Status: Active Protocol: Document 12/20/19 10:21 [facility] (Rec: 12/20/19 12:11 [facility] [id number]) Hip Goniometric Range of Motion Hip Left Passive Flexion w/Knee Flexed 92 Straight Leg Raise 68 Abduction 20 Right Passive Flexion w/Knee Flexed 96 Straight Leg Raise 74 Abduction 21 Right Active Flexion w/Knee Flexed 68 Straight Leg Raise 32 Abduction 18 Internal Rotation 9 External Rotation 23 Left Active Flexion w/Knee Flexed 90 Straight Leg Raise 48 Abduction 13 Internal Rotation 8 External Rotation 31 PT-OP-L Special Tests Start: 12/12/19 07:41 Freq: Status: Active Protocol: Document 12/18/19 11:23 [facility] (Rec: 12/18/19 12:16 [facility] [id number]) Special Tests Lumbar Spine Special Tests Slump Test Results neg but tightness R side Straight Leg Raise Test Results R HS testing PT-OP-M Strength Start: 12/12/19 07:41 Freq: Status: Active Protocol: Document 12/18/19 11:23 [facility] (Rec: 12/18/19 12:16 [facility] [id number]) Hip Strength Hip Manual Muscle Testing Right Flexion (L2) 3 Fair Abduction 3 Fair Adduction 4 Good External Rotation 3+ Fair+ Internal Rotation 4 Good Comments IR B small range Left Flexion (L2) 3+ Fair+ Abduction 3 Fair Adduction 2+ Poor+ External Rotation 4 Good Internal Rotation 4+ Good+ Knee Strength Knee Manual Muscle Testing Left Flexion (S2) 4 Good Extension (L3) 4 Good Right Flexion (S2) 4 Good Extension (L3) 4 Good Ankle/Foot Strength Ankle and Foot Manual Muscle Testing Right Dorsiflexion (L4) 4+ Good+ Plantarflexion (S1) 4+ Good+ Left Dorsiflexion (L4) 4+ Good+ Plantarflexion (S1) 5 Normal Comments seated PF testing PT-OP-Q Treatments Start: 12/12/19 07:41 Freq: Status: Active Protocol: Document 12/25/19 09:43 [facility] (Rec: 12/25/19 09:48 [facility] [id number]) Therapeutic Exercises Standing Exercises side stepping Standing Exercise Name side stepping Side bilateral Reps/Minutes 20ftx2 Comments focus on no lat lean squats Standing Exercise Name partial squat Side bilateral Equipment Used rail Reps/Minutes 15 Comments cueing for avoiding knees going over toes Gait Training Gait Activity wt shifts Description fwd in front of mirror w/hand hold focus on no lat lean walking Description 6 min walk test 1094ft Manual Therapy Treatment Soft Tissue Mobilization thigh Comments 1. MFR w/IR/ER circumfrential 2. adductors rolling w/IR/ER PT-OP-T Assessment and Plan Start: 12/12/19 07:41 Freq: Status: Active Protocol: Document 12/25/19 09:43 [facility] (Rec: 12/25/19 09:48 [facility] [id number]) Physical Therapy Assessment Goals sitting Digital Producer Goal (LTG) Pt will report being able to sit for up to 30 min without inc pain in BLE. LTG Duration 02/18/20 Walking Short Term Goal (STG) Pt will be able to walk at least 1/4 mile w/o AD, seated rest break or inc in pain no more than 2 points on VAS. STG Duration 01/19/20 [facility] Goal (LTG) Pt will be able to walk 1 mile w/o AD, seated rest break or inc in pain no more than 2 point on VAS. LTG Duration 02/18/20 3 Impairment [id number]/56; FGA Short Term Goal (STG) Pt will score >50 on MELTON to show improved balance and safe for community amb without AD. STG Duration 01/19/20 Digital Producer Goal (LTG) Pt will score >25 on FGA to show improvement in balance & dec risk for falls LTG Duration 02/18/20 2 Impairment strength Short Term Goal (STG) Pt will be indep with HEP STG Duration 01/19/20 Digital Producer Goal (LTG) Pt will score at least 4+/5 in all planes for LE strength and 2/5 LPM without pain to allow for greater ease in daily activities. LTG Duration 02/18/20 1 Impairment sit<>Stand Short Term Goal (STG) Pt will be able to do 5 sit to stands in 13 sec to show improved LE strength. STG Duration 01/19/20 Digital Producer Goal (LTG) Pt will be able to do 12 sit to stands in 30 sec to show dec risk for falls and imrpoved functional LE strength LTG Duration 02/18/20 Assessment Summary Assessment Pt was able to amb 1094ft with 6 min walk with B hip pain starting about mid way and inc lat leaning after about 3 min of walking. He has signifiacnt adductor tightness which likely contributes to his pain. Physical Therapy Plan Frequency and Duration Frequency of Treatment 2x/Week Duration of Treatment 2 months Plan of Care Start Date 12/19/19 Plan of Care End Date 02/18/20 Next Visit Focus/Plan Next Note Type Treatment Note Next Visit Plan STM to adductors & quads, gentle hip mobs, core stability strengthening & hip abd, balance board
--- NOTE | 2019-12-31 10:34 | PT.OTN ---
Current Diagnoses Pain in right leg (12/31/19) Pain in left leg (12/31/19) Difficulty in walking, not elsewhere classified (12/31/19) Abnormal posture (12/31/19) Weakness (12/31/19) Physical Therapy Treatment Note PT-OP-A Visit Information Start: 12/12/19 07:41 Freq: Status: Active Protocol: Document 12/31/19 09:43 [facility] (Rec: 12/31/19 10:34 [facility] [id number]) Out-Patient Physical Therapy Visit Information Visit Information Visit Type Treatment Note Visit Start Time 09:46 Visit Stop Time 10:29 Total Visit Minutes 43 Visit Number 4 Number of OYSTER CULLER Visits 0 PT-OP-B Current Condition Start: 12/12/19 07:41 Freq: Status: Active Protocol: Document 12/18/19 11:23 [facility] (Rec: 12/18/19 12:16 [facility] [id number]) Current Condition History of Current Condition History of Current Condition On the Am of 11/25 pt rolled over and felt B hip pops and had difficulty WB ability. He has had B adductor pain. He has had significant weakness with getting out of a chair and requires his UEs and requires rail for stairs. Pt reprots pain post R leg when driving which he thinks may have started when he fell trying to help his in the hallway. Pt has pain in post thigh with sitting. Pt reprots he has been trying very hard to stretch and exercise daily for 30-45 min (exHS stretches & squats). Pain is more severe after this. Step up into the house has become increasingly difficult. Has started some SLS exercises at home. Pt does okay with wakling on flat surface but not unevne. Pt reprots walking is more of a jaring motion now he feels. Prior Treatments and Tests Xrays of hips-no ortho follow up & testicle imaging-seeing urologist Future Testing and Treatments Planned possible B foot surgery for 1st digit Treatment Goals Patient/Caregiver Goals abilityt o walk/hike at least 1 mile, be able to trot, improve balance & strength & ROM, be ground mobile Personal Factors Other Personal Factors That May Effect hx: R TKA, lumbar fusion, Therapy/Recovery epididymitis from dropping heavy box, B foot pain & arthritis, B knee pain. back pain, diabetes, RA & EO tears 50 years ago PT-OP-C Subjective Start: 12/12/19 07:41 Freq: Status: Active Protocol: Document 12/31/19 09:43 [facility] (Rec: 12/31/19 10:34 [facility] [id number]) OP-PT Subjective Patient Comments Patient Comments Pt reprots gout like flare up in L foot. REports he has inc squats to 2 sets PT-OP-D Balance Start: 12/12/19 07:41 Freq: Status: Active Protocol: Document 12/18/19 11:23 [facility] (Rec: 12/18/19 12:16 [facility] [id number]) Balance Tests Melton Balance Test Melton Balance Test Score 46 Melton Impairment Rating 1 to 19% Impaired (Score 45-55 ) Single Limb Standing Single Limb- Right 2 Single Limb- Left 11 PT-OP-E Functional Tests Start: 12/12/19 07:41 Freq: Status: Active Protocol: Document 12/18/19 11:23 [facility] (Rec: 12/18/19 12:16 [facility] [id number]) Functional Tests 30 Second Sit to Stand Test Score 7 Comments bermudez chair Dynamic Gait Index (DGI) Score 20 Five Times Sit to Stand Test Score 19 sec Comments bermudez chair Functional Gait Assessment Score 19 PT-OP-G Mobility & Gait Start: 12/12/19 07:41 Freq: Status: Active Protocol: Document 12/18/19 11:23 [facility] (Rec: 12/18/19 12:16 [facility] [id number]) OP Mobility Evaluation Transfers Sit to Stand uses hands and is labored OP Gait Assessment Comments Gait Comments Pt amb w/lat leaning B during gait with dec overall push off . Dec stance time LLE PT-OP-J Posture/Palpation/Skin Start: 12/12/19 07:41 Freq: Status: Active Protocol: Document 12/18/19 11:23 [facility] (Rec: 12/18/19 12:16 [facility] [id number]) Posture Evaluation Margaux Postural Classification System Lumbar Protective Mechanism Left AP 0 Lumbar Protective Mechanism Right AP 0 Lumbar Protective Mechanism Left PA 0 Lumbar Protective Mechanism Right PA 0 PT-OP-K Range of Motion Start: 12/12/19 07:41 Freq: Status: Active Protocol: Document 12/20/19 10:21 [facility] (Rec: 12/20/19 12:11 [facility] [id number]) Hip Goniometric Range of Motion Hip Left Passive Flexion w/Knee Flexed 92 Straight Leg Raise 68 Abduction 20 Right Passive Flexion w/Knee Flexed 96 Straight Leg Raise 74 Abduction 21 Right Active Flexion w/Knee Flexed 68 Straight Leg Raise 32 Abduction 18 Internal Rotation 9 External Rotation 23 Left Active Flexion w/Knee Flexed 90 Straight Leg Raise 48 Abduction 13 Internal Rotation 8 External Rotation 31 PT-OP-L Special Tests Start: 12/12/19 07:41 Freq: Status: Active Protocol: Document 12/18/19 11:23 [facility] (Rec: 12/18/19 12:16 [facility] [id number]) Special Tests Lumbar Spine Special Tests Slump Test Results neg but tightness R side Straight Leg Raise Test Results R HS testing PT-OP-M Strength Start: 12/12/19 07:41 Freq: Status: Active Protocol: Document 12/18/19 11:23 [facility] (Rec: 12/18/19 12:16 [facility] [id number]) Hip Strength Hip Manual Muscle Testing Right Flexion (L2) 3 Fair Abduction 3 Fair Adduction 4 Good External Rotation 3+ Fair+ Internal Rotation 4 Good Comments IR B small range Left Flexion (L2) 3+ Fair+ Abduction 3 Fair Adduction 2+ Poor+ External Rotation 4 Good Internal Rotation 4+ Good+ Knee Strength Knee Manual Muscle Testing Left Flexion (S2) 4 Good Extension (L3) 4 Good Right Flexion (S2) 4 Good Extension (L3) 4 Good Ankle/Foot Strength Ankle and Foot Manual Muscle Testing Right Dorsiflexion (L4) 4+ Good+ Plantarflexion (S1) 4+ Good+ Left Dorsiflexion (L4) 4+ Good+ Plantarflexion (S1) 5 Normal Comments seated PF testing PT-OP-Q Treatments Start: 12/12/19 07:41 Freq: Status: Active Protocol: Document 12/31/19 09:43 [facility] (Rec: 12/31/19 10:34 [facility] [id number]) Therapeutic Exercises Supine Exercises quad set Supine Exercise Name w/IR of hip to put in neutral Side right Reps/Minutes 5sec x10 Manual Therapy Treatment Soft Tissue Mobilization HS Body Location HS R Mobilization Type Rolling,Sustained Pressure Intensity/Depth Moderate Body Position Supine Comments w/ knee ext thigh Body Location quad & ITB Mobilization Type Myofascial Release,Rolling Intensity/Depth Moderate Joint Mobilizations hip Joint R Direction inf & distraciton Grade II Self-Care/Home Management Treatment Education Other Education edu okay to add one more set of squats if no inc pain PT-OP-T Assessment and Plan Start: 12/12/19 07:41 Freq: Status: Active Protocol: Document 12/31/19 09:43 [facility] (Rec: 12/31/19 10:34 [facility] [id number]) Physical Therapy Assessment Goals sitting [employer] Goal (LTG) Pt will report being able to sit for up to 30 min without inc pain in BLE. LTG Duration 02/18/20 Walking Short Term Goal (STG) Pt will be able to walk at least 1/4 mile w/o AD, seated rest break or inc in pain no more than 2 points on VAS. STG Duration 01/19/20 [employer] Goal (LTG) Pt will be able to walk 1 mile w/o AD, seated rest break or inc in pain no more than 2 point on VAS. LTG Duration 02/18/20 3 Impairment [id number]; FGA Short Term Goal (STG) Pt will score >50 on MELTON to show improved balance and safe for community amb without AD. STG Duration 01/19/20 [employer] Goal (LTG) Pt will score >25 on FGA to show improvement in balance & dec risk for falls LTG Duration 02/18/20 2 Impairment strength Short Term Goal (STG) Pt will be indep with HEP STG Duration 01/19/20 [facility] Goal (LTG) Pt will score at least 4+/5 in all planes for LE strength and 2/5 LPM without pain to allow for greater ease in daily activities. LTG Duration 02/18/20 1 Impairment sit<>Stand Short Term Goal (STG) Pt will be able to do 5 sit to stands in 13 sec to show improved LE strength. STG Duration 01/19/20 [employer] P[employer] Goal (LTG) Pt will be able to do 12 sit to stands in 30 sec to show dec risk for falls and imrpoved functional LE strength LTG Duration 02/18/20 Assessment Summary Assessment Focus on manual today d/t pt still having flare up of gout stymptoms in L foot so avoiding standing activities. Pt doing stretches at home and able to do without pain inc. Physical Therapy Plan Frequency and Duration Frequency of Treatment 2x/Week Duration of Treatment 2 months Plan of Care Start Date 12/19/19 Plan of Care End Date 02/18/20 Next Visit Focus/Plan Next Note Type Treatment Note Next Visit Plan STM to adductors & quads, gentle hip mobs, core stability strengthening & hip abd, balance board
--- NOTE | 2020-01-02 15:54 | PT.OTN ---
Current Diagnoses Pain in right leg (01/02/20) Pain in left leg (01/02/20) Difficulty in walking, not elsewhere classified (01/02/20) Abnormal posture (01/02/20) Weakness (01/02/20) Physical Therapy Treatment Note PT-OP-A Visit Information Start: 12/12/19 07:41 Freq: Status: Active Protocol: Document 01/02/20 15:43 [facility] (Rec: 01/02/20 15:54 [facility] [id number]) Out-Patient Physical Therapy Visit Information Visit Information Visit Type Treatment Note Visit Start Time 13:00 Visit Stop Time 13:45 Total Visit Minutes 45 Visit Number 5 Number of STOCK SORTER Visits 0 PT-OP-B Current Condition Start: 12/12/19 07:41 Freq: Status: Active Protocol: Document 12/18/19 11:23 [facility] (Rec: 12/18/19 12:16 [facility] [id number]) Current Condition History of Current Condition History of Current Condition On the Am of 11/25 pt rolled over and felt B hip pops and had difficulty WB ability. He has had B adductor pain. He has had significant weakness with getting out of a chair and requires his UEs and requires rail for stairs. Pt reprots pain post R leg when driving which he thinks may have started when he fell trying to help his in the hallway. Pt has pain in post thigh with sitting. Pt reprots he has been trying very hard to stretch and exercise daily for 30-45 min (exHS stretches & squats). Pain is more severe after this. Step up into the house has become increasingly difficult. Has started some SLS exercises at home. Pt does okay with wakling on flat surface but not unevne. Pt reprots walking is more of a jaring motion now he feels. Prior Treatments and Tests Xrays of hips-no ortho follow up & testicle imaging-seeing urologist Future Testing and Treatments Planned possible B foot surgery for 1st digit Treatment Goals Patient/Caregiver Goals abilityt o walk/hike at least 1 mile, be able to trot, improve balance & strength & ROM, be ground mobile Personal Factors Other Personal Factors That May Effect hx: R TKA, lumbar fusion, Therapy/Recovery epididymitis from dropping heavy box, B foot pain & arthritis, B knee pain. back pain, diabetes, RA & EO tears 50 years ago PT-OP-C Subjective Start: 12/12/19 07:41 Freq: Status: Active Protocol: Document 01/02/20 15:43 [facility] (Rec: 01/02/20 15:54 [facility] [id number]) OP-PT Subjective Patient Comments Patient Comments Pt reports he has been walking at [employer] [address] He feels like he has been doing better the past 3 weeks. Patient Reported Progress Improving PT-OP-D Balance Start: 12/12/19 07:41 Freq: Status: Active Protocol: Document 12/18/19 11:23 [facility] (Rec: 12/18/19 12:16 [facility] [id number]) Balance Tests Melton Balance Test Melton Balance Test Score 46 Melton Impairment Rating 1 to 19% Impaired (Score 45-55 ) Single Limb Standing Single Limb- Right 2 Single Limb- Left 11 PT-OP-E Functional Tests Start: 12/12/19 07:41 Freq: Status: Active Protocol: Document 12/18/19 11:23 [facility] (Rec: 12/18/19 12:16 [facility] [id number]) Functional Tests 30 Second Sit to Stand Test Score 7 Comments bermudez chair Dynamic Gait Index (DGI) Score 20 Five Times Sit to Stand Test Score 19 sec Comments bermudez chair Functional Gait Assessment Score 19 PT-OP-G Mobility & Gait Start: 12/12/19 07:41 Freq: Status: Active Protocol: Document 12/18/19 11:23 [facility] (Rec: 12/18/19 12:16 [facility] [id number]) OP Mobility Evaluation Transfers Sit to Stand uses hands and is labored OP Gait Assessment Comments Gait Comments Pt amb w/lat leaning B during gait with dec overall push off . Dec stance time LLE PT-OP-J Posture/Palpation/Skin Start: 12/12/19 07:41 Freq: Status: Active Protocol: Document 12/18/19 11:23 [facility] (Rec: 12/18/19 12:16 [facility] [id number]) Posture Evaluation Margaux Postural Classification System Lumbar Protective Mechanism Left AP 0 Lumbar Protective Mechanism Right AP 0 Lumbar Protective Mechanism Left PA 0 Lumbar Protective Mechanism Right PA 0 PT-OP-K Range of Motion Start: 12/12/19 07:41 Freq: Status: Active Protocol: Document 12/20/19 10:21 [facility] (Rec: 12/20/19 12:11 [facility] [id number]) Hip Goniometric Range of Motion Hip Left Passive Flexion w/Knee Flexed 92 Straight Leg Raise 68 Abduction 20 Right Passive Flexion w/Knee Flexed 96 Straight Leg Raise 74 Abduction 21 Right Active Flexion w/Knee Flexed 68 Straight Leg Raise 32 Abduction 18 Internal Rotation 9 External Rotation 23 Left Active Flexion w/Knee Flexed 90 Straight Leg Raise 48 Abduction 13 Internal Rotation 8 External Rotation 31 PT-OP-L Special Tests Start: 12/12/19 07:41 Freq: Status: Active Protocol: Document 12/18/19 11:23 [facility] (Rec: 12/18/19 12:16 [facility] [id number]) Special Tests Lumbar Spine Special Tests Slump Test Results neg but tightness R side Straight Leg Raise Test Results R HS testing PT-OP-M Strength Start: 12/12/19 07:41 Freq: Status: Active Protocol: Document 12/18/19 11:23 [facility] (Rec: 12/18/19 12:16 [facility] [id number]) Hip Strength Hip Manual Muscle Testing Right Flexion (L2) 3 Fair Abduction 3 Fair Adduction 4 Good External Rotation 3+ Fair+ Internal Rotation 4 Good Comments IR B small range Left Flexion (L2) 3+ Fair+ Abduction 3 Fair Adduction 2+ Poor+ External Rotation 4 Good Internal Rotation 4+ Good+ Knee Strength Knee Manual Muscle Testing Left Flexion (S2) 4 Good Extension (L3) 4 Good Right Flexion (S2) 4 Good Extension (L3) 4 Good Ankle/Foot Strength Ankle and Foot Manual Muscle Testing Right Dorsiflexion (L4) 4+ Good+ Plantarflexion (S1) 4+ Good+ Left Dorsiflexion (L4) 4+ Good+ Plantarflexion (S1) 5 Normal Comments seated PF testing PT-OP-Q Treatments Start: 12/12/19 07:41 Freq: Status: Active Protocol: Document 01/02/20 15:43 [facility] (Rec: 01/02/20 15:54 [facility] [id number]) Therapeutic Exercises Supine Exercises pelvic tilts Supine Exercise Name 1. pelvic tilts 2. pelvic clocks CW/CCW Reps/Minutes 10 ea LTR Supine Exercise Name focus on segmental control Side bilateral Reps/Minutes 8 eccentric hip flexion Supine Exercise Name SKTC w/ slow eccentric lower into ext Side right Reps/Minutes 10 Comments added to HEP Standing Exercises HS Standing Exercise Name [place] stretch Side bilateral Reps/Minutes 10 ea Manual Therapy Treatment Soft Tissue Mobilization HS Body Location HS R Mobilization Type Rolling,Sustained Pressure Intensity/Depth Moderate Body Position Supine Comments w/ knee ext thigh Body Location adductors R Mobilization Type Myofascial Release,Rolling Intensity/Depth Moderate PT-OP-T Assessment and Plan Start: 12/12/19 07:41 Freq: Status: Active Protocol: Document 01/02/20 15:43 [facility] (Rec: 01/02/20 15:54 [facility] [id number]) Physical Therapy Assessment Goals sitting Senior Care Goal (LTG) Pt will report being able to sit for up to 30 min without inc pain in BLE. LTG Duration 02/18/20 Walking Short Term Goal (STG) Pt will be able to walk at least 1/4 mile w/o AD, seated rest break or inc in pain no more than 2 points on VAS. STG Duration 01/19/20 Senior Care Goal (LTG) Pt will be able to walk 1 mile w/o AD, seated rest break or inc in pain no more than 2 point on VAS. LTG Duration 02/18/20 3 Impairment [id number]; FGA 19/30 Short Term Goal (STG) Pt will score >50 on MELTON to show improved balance and safe for community amb without AD. STG Duration 01/19/20 Wash Test Checker Goal (LTG) Pt will score >25 on FGA to show improvement in balance & dec risk for falls LTG Duration 02/18/20 2 Impairment strength Short Term Goal (STG) Pt will be indep with HEP STG Duration 01/19/20 Senior Care Goal (LTG) Pt will score at least 4+/5 in all planes for LE strength and 2/5 LPM without pain to allow for greater ease in daily activities. LTG Duration 02/18/20 1 Impairment sit<>Stand Short Term Goal (STG) Pt will be able to do 5 sit to stands in 13 sec to show improved LE strength. STG Duration 01/19/20 Wash Test Checker Goal (LTG) Pt will be able to do 12 sit to stands in 30 sec to show dec risk for falls and imrpoved functional LE strength LTG Duration 02/18/20 Assessment Summary Assessment Pt had difficulty with exercises that required isolation of lumbar and pelvic movement today. Tactile cueing and demo provided to assist. Biggested ifficulty was with LTR with segmental control. Physical Therapy Plan Frequency and Duration Frequency of Treatment 2x/Week Duration of Treatment 2 months Plan of Care Start Date 12/19/19 Plan of Care End Date 02/18/20 Next Visit Focus/Plan Next Note Type Treatment Note Next Visit Plan Review exercises from last session
--- NOTE | 2020-01-07 12:05 | PT.OTN ---
Current Diagnoses Pain in right leg (01/07/20) Pain in left leg (01/07/20) Difficulty in walking, not elsewhere classified (01/07/20) Abnormal posture (01/07/20) Weakness (01/07/20) Physical Therapy Treatment Note PT-OP-A Visit Information Start: 12/12/19 07:41 Freq: Status: Active Protocol: Document 01/07/20 10:33 [facility] (Rec: 01/07/20 12:05 [facility] [id number]) Out-Patient Physical Therapy Visit Information Visit Information Visit Type Treatment Note Visit Note 08/21 Visit Start Time 10:34 Visit Stop Time 11:15 Total Visit Minutes 41 Visit Number 6 Number of INSTRUCTOR MODELING Visits 0 PT-OP-B Current Condition Start: 12/12/19 07:41 Freq: Status: Active Protocol: Document 12/18/19 11:23 [facility] (Rec: 12/18/19 12:16 [facility] [id number]) Current Condition History of Current Condition History of Current Condition On the Am of 11/25 pt rolled over and felt B hip pops and had difficulty WB ability. He has had B adductor pain. He has had significant weakness with getting out of a chair and requires his UEs and requires rail for stairs. Pt reprots pain post R leg when driving which he thinks may have started when he fell trying to help his in the hallway. Pt has pain in post thigh with sitting. Pt reprots he has been trying very hard to stretch and exercise daily for 30-45 min (exHS stretches & squats). Pain is more severe after this. Step up into the house has become increasingly difficult. Has started some SLS exercises at home. Pt does okay with wakling on flat surface but not unevne. Pt reprots walking is more of a jaring motion now he feels. Prior Treatments and Tests Xrays of hips-no ortho follow up & testicle imaging-seeing urologist Future Testing and Treatments Planned possible B foot surgery for 1st digit Treatment Goals Patient/Caregiver Goals abilityt o walk/hike at least 1 mile, be able to trot, improve balance & strength & ROM, be ground mobile Personal Factors Other Personal Factors That May Effect hx: R TKA, lumbar fusion, Therapy/Recovery epididymitis from dropping heavy box, B foot pain & arthritis, B knee pain. back pain, diabetes, RA & EO tears 50 years ago PT-OP-C Subjective Start: 12/12/19 07:41 Freq: Status: Active Protocol: Document 01/07/20 10:33 [facility] (Rec: 01/07/20 12:05 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 Pt reports his buttock down post leg hurts when sitting Patient Reported Progress Worse PT-OP-D Balance Start: 12/12/19 07:41 Freq: Status: Active Protocol: Document 12/18/19 11:23 [facility] (Rec: 12/18/19 12:16 [facility] [id number]) Balance Tests Melton Balance Test Melton Balance Test Score 46 Melton Impairment Rating 1 to 19% Impaired (Score 45-55 ) Single Limb Standing Single Limb- Right 2 Single Limb- Left 11 PT-OP-E Functional Tests Start: 12/12/19 07:41 Freq: Status: Active Protocol: Document 12/18/19 11:23 [facility] (Rec: 12/18/19 12:16 [facility] [id number]) Functional Tests 30 Second Sit to Stand Test Score 7 Comments bermudez chair Dynamic Gait Index (DGI) Score 20 Five Times Sit to Stand Test Score 19 sec Comments bemrudez chair Functional Gait Assessment Score 19 PT-OP-G Mobility & Gait Start: 12/12/19 07:41 Freq: Status: Active Protocol: Document 12/18/19 11:23 [facility] (Rec: 12/18/19 12:16 [facility] [id number]) OP Mobility Evaluation Transfers Sit to Stand uses hands and is labored OP Gait Assessment Comments Gait Comments Pt amb w/lat leaning B during gait with dec overall push off . Dec stance time LLE PT-OP-J Posture/Palpation/Skin Start: 12/12/19 07:41 Freq: Status: Active Protocol: Document 12/18/19 11:23 [facility] (Rec: 12/18/19 12:16 [facility] [id number]) Posture Evaluation Margaux Postural Classification System Lumbar Protective Mechanism Left AP 0 Lumbar Protective Mechanism Right AP 0 Lumbar Protective Mechanism Left PA 0 Lumbar Protective Mechanism Right PA 0 PT-OP-K Range of Motion Start: 12/12/19 07:41 Freq: Status: Active Protocol: Document 12/20/19 10:21 [facility] (Rec: 12/20/19 12:11 [facility] [id number]) Hip Goniometric Range of Motion Hip Left Passive Flexion w/Knee Flexed 92 Straight Leg Raise 68 Abduction 20 Right Passive Flexion w/Knee Flexed 96 Straight Leg Raise 74 Abduction 21 Right Active Flexion w/Knee Flexed 68 Straight Leg Raise 32 Abduction 18 Internal Rotation 9 External Rotation 23 Left Active Flexion w/Knee Flexed 90 Straight Leg Raise 48 Abduction 13 Internal Rotation 8 External Rotation 31 PT-OP-L Special Tests Start: 12/12/19 07:41 Freq: Status: Active Protocol: Document 12/18/19 11:23 [facility] (Rec: 12/18/19 12:16 [facility] [id number]) Special Tests Lumbar Spine Special Tests Slump Test Results neg but tightness R side Straight Leg Raise Test Results R HS testing PT-OP-M Strength Start: 12/12/19 07:41 Freq: Status: Active Protocol: Document 12/18/19 11:23 [facility] (Rec: 12/18/19 12:16 [facility] [id number]) Hip Strength Hip Manual Muscle Testing Right Flexion (L2) 3 Fair Abduction 3 Fair Adduction 4 Good External Rotation 3+ Fair+ Internal Rotation 4 Good Comments IR B small range Left Flexion (L2) 3+ Fair+ Abduction 3 Fair Adduction 2+ Poor+ External Rotation 4 Good Internal Rotation 4+ Good+ Knee Strength Knee Manual Muscle Testing Left Flexion (S2) 4 Good Extension (L3) 4 Good Right Flexion (S2) 4 Good Extension (L3) 4 Good Ankle/Foot Strength Ankle and Foot Manual Muscle Testing Right Dorsiflexion (L4) 4+ Good+ Plantarflexion (S1) 4+ Good+ Left Dorsiflexion (L4) 4+ Good+ Plantarflexion (S1) 5 Normal Comments seated PF testing PT-OP-Q Treatments Start: 12/12/19 07:41 Freq: Status: Active Protocol: Document 01/07/20 10:33 [facility] (Rec: 01/07/20 12:05 [facility] [id number]) Therapeutic Exercises Supine Exercises pelvic tilts Supine Exercise Name 1. pelvic tilts 2. pelvic clocks CW/CCW Reps/Minutes 5 ea LTR Supine Exercise Name focus on segmental control Side bilateral Reps/Minutes 6 Standing Exercises hip hinge Standing Exercise Name hip hinge Reps/Minutes 10 squats Reps/Minutes 5 Comments stopped d/t post R thigh pain Manual Therapy Treatment Soft Tissue Mobilization gluteals Body Location R glutes & piriformis Mobilization Type Sustained Pressure Intensity/Depth Moderate Body Position Sidelying HS Body Location HS R Mobilization Type Rolling,Sustained Pressure Intensity/Depth Moderate Body Position Sidelying Comments w/ knee ext thigh Body Location ITB Mobilization Type Myofascial Release,Rolling Intensity/Depth Moderate Body Position Sidelying PT-OP-T Assessment and Plan Start: 12/12/19 07:41 Freq: Status: Active Protocol: Document 01/07/20 10:33 [facility] (Rec: 01/07/20 12:05 [facility] [id number]) Physical Therapy Assessment Goals sitting Detention Goal (LTG) Pt will report being able to sit for up to 30 min without inc pain in BLE. LTG Duration 02/18/20 Walking Short Term Goal (STG) Pt will be able to walk at least 1/4 mile w/o AD, seated rest break or inc in pain no more than 2 points on VAS. STG Duration 01/19/20 Detention Goal (LTG) Pt will be able to walk 1 mile w/o AD, seated rest break or inc in pain no more than 2 point on VAS. LTG Duration 02/18/20 3 Impairment [id number]; FGA Short Term Goal (STG) Pt will score >50 on MELTON to show improved balance and safe for community amb without AD. STG Duration 01/19/20 State Pilot Goal (LTG) Pt will score >25 on FGA to show improvement in balance & dec risk for falls LTG Duration 02/18/20 2 Impairment strength Short Term Goal (STG) Pt will be indep with HEP STG Duration 01/19/20 Detention Goal (LTG) Pt will score at least 4+/5 in all planes for LE strength and 2/5 LPM without pain to allow for greater ease in daily activities. LTG Duration 02/18/20 1 Impairment sit<>Stand Short Term Goal (STG) Pt will be able to do 5 sit to stands in 13 sec to show improved LE strength. STG Duration 01/19/20 State Pilot Goal (LTG) Pt will be able to do 12 sit to stands in 30 sec to show dec risk for falls and imrpoved functional LE strength LTG Duration 02/18/20 Assessment Summary Assessment Pt cotn to have trouble with segnment contorl with spine and required cueing during exercises. Pt had difficulty with squats d/t post R leg pain so adjusted HEP to doing hip hinge only at this time. Physical Therapy Plan Frequency and Duration Frequency of Treatment 2x/Week Duration of Treatment 2 months Plan of Care Start Date 12/19/19 Plan of Care End Date 02/18/20 Next Visit Focus/Plan Next Note Type Treatment Note Next Visit Plan cont to work on segmental control & work on pelvis mobility
--- NOTE | 2020-01-09 11:26 | PT.OTN ---
Current Diagnoses Pain in right leg (01/09/20) Pain in left leg (01/09/20) Difficulty in walking, not elsewhere classified (01/09/20) Abnormal posture (01/09/20) Weakness (01/09/20) Physical Therapy Treatment Note PT-OP-A Visit Information Start: 12/12/19 07:41 Freq: Status: Active Protocol: Document 01/09/20 11:22 [facility] (Rec: 01/09/20 11:26 [facility] [id number]) Out-Patient Physical Therapy Visit Information Visit Information Visit Type Treatment Note Visit Note 09/20 Visit Start Time 10:34 Visit Stop Time 11:16 Total Visit Minutes 42 Visit Number 7 Number of SUPERVISOR REFINING Visits 0 PT-OP-B Current Condition Start: 12/12/19 07:41 Freq: Status: Active Protocol: Document 12/18/19 11:23 [facility] (Rec: 12/18/19 12:16 [facility] [id number]) Current Condition History of Current Condition History of Current Condition On the Am of 11/25 pt rolled over and felt B hip pops and had difficulty WB ability. He has had B adductor pain. He has had significant weakness with getting out of a chair and requires his UEs and requires rail for stairs. Pt reprots pain post R leg when driving which he thinks may have started when he fell trying to help his in the hallway. Pt has pain in post thigh with sitting. Pt reprots he has been trying very hard to stretch and exercise daily for 30-45 min (exHS stretches & squats). Pain is more severe after this. Step up into the house has become increasingly difficult. Has started some SLS exercises at home. Pt does okay with wakling on flat surface but not unevne. Pt reprots walking is more of a jaring motion now he feels. Prior Treatments and Tests Xrays of hips-no ortho follow up & testicle imaging-seeing urologist Future Testing and Treatments Planned possible B foot surgery for 1st digit Treatment Goals Patient/Caregiver Goals abilityt o walk/hike at least 1 mile, be able to trot, improve balance & strength & ROM, be ground mobile Personal Factors Other Personal Factors That May Effect hx: R TKA, lumbar fusion, Therapy/Recovery epididymitis from dropping heavy box, B foot pain & arthritis, B knee pain. back pain, diabetes, RA & EO tears 50 years ago PT-OP-C Subjective Start: 12/12/19 07:41 Freq: Status: Active Protocol: Document 01/09/20 11:22 [facility] (Rec: 01/09/20 11:26 [facility] [id number]) OP-PT Subjective Patient Comments Patient Comments pt reports he had a bad day yesterday. He donated blood and had to go downstaris then upstairs and he really hurt after. PT-OP-D Balance Start: 12/12/19 07:41 Freq: Status: Active Protocol: Document 12/18/19 11:23 [facility] (Rec: 12/18/19 12:16 [facility] [id number]) Balance Tests Melton Balance Test Melton Balance Test Score 46 Melton Impairment Rating 1 to 19% Impaired (Score 45-55 ) Single Limb Standing Single Limb- Right 2 Single Limb- Left 11 PT-OP-E Functional Tests Start: 12/12/19 07:41 Freq: Status: Active Protocol: Document 12/18/19 11:23 [facility] (Rec: 12/18/19 12:16 [facility] [id number]) Functional Tests 30 Second Sit to Stand Test Score 7 Comments bermudez chair Dynamic Gait Index (DGI) Score 20 Five Times Sit to Stand Test Score 19 sec Comments bermudez chair Functional Gait Assessment Score 19 PT-OP-G Mobility & Gait Start: 12/12/19 07:41 Freq: Status: Active Protocol: Document 12/18/19 11:23 [facility] (Rec: 12/18/19 12:16 [facility] [id number]) OP Mobility Evaluation Transfers Sit to Stand uses hands and is labored OP Gait Assessment Comments Gait Comments Pt amb w/lat leaning B during gait with dec overall push off . Dec stance time LLE PT-OP-J Posture/Palpation/Skin Start: 12/12/19 07:41 Freq: Status: Active Protocol: Document 12/18/19 11:23 [facility] (Rec: 12/18/19 12:16 [facility] [id number]) Posture Evaluation Margaux Postural Classification System Lumbar Protective Mechanism Left AP 0 Lumbar Protective Mechanism Right AP 0 Lumbar Protective Mechanism Left PA 0 Lumbar Protective Mechanism Right PA 0 PT-OP-K Range of Motion Start: 12/12/19 07:41 Freq: Status: Active Protocol: Document 12/20/19 10:21 [facility] (Rec: 12/20/19 12:11 [facility] [id number]) Hip Goniometric Range of Motion Hip Left Passive Flexion w/Knee Flexed 92 Straight Leg Raise 68 Abduction 20 Right Passive Flexion w/Knee Flexed 96 Straight Leg Raise 74 Abduction 21 Right Active Flexion w/Knee Flexed 68 Straight Leg Raise 32 Abduction 18 Internal Rotation 9 External Rotation 23 Left Active Flexion w/Knee Flexed 90 Straight Leg Raise 48 Abduction 13 Internal Rotation 8 External Rotation 31 PT-OP-L Special Tests Start: 12/12/19 07:41 Freq: Status: Active Protocol: Document 12/18/19 11:23 [facility] (Rec: 12/18/19 12:16 [facility] [id number]) Special Tests Lumbar Spine Special Tests Slump Test Results neg but tightness R side Straight Leg Raise Test Results R HS testing PT-OP-M Strength Start: 12/12/19 07:41 Freq: Status: Active Protocol: Document 12/18/19 11:23 [facility] (Rec: 12/18/19 12:16 [facility] [id number]) Hip Strength Hip Manual Muscle Testing Right Flexion (L2) 3 Fair Abduction 3 Fair Adduction 4 Good External Rotation 3+ Fair+ Internal Rotation 4 Good Comments IR B small range Left Flexion (L2) 3+ Fair+ Abduction 3 Fair Adduction 2+ Poor+ External Rotation 4 Good Internal Rotation 4+ Good+ Knee Strength Knee Manual Muscle Testing Left Flexion (S2) 4 Good Extension (L3) 4 Good Right Flexion (S2) 4 Good Extension (L3) 4 Good Ankle/Foot Strength Ankle and Foot Manual Muscle Testing Right Dorsiflexion (L4) 4+ Good+ Plantarflexion (S1) 4+ Good+ Left Dorsiflexion (L4) 4+ Good+ Plantarflexion (S1) 5 Normal Comments seated PF testing PT-OP-Q Treatments Start: 12/12/19 07:41 Freq: Status: Active Protocol: Document 01/09/20 11:22 [facility] (Rec: 01/09/20 11:26 [facility] [id number]) Gym Equipment Shuttle Balance red clips Details weight shifts + balance Comments fwd/back and side/side wt shifts; fwd & side:NBOS and WBOS fwd Staggered stance B Therapeutic Exercises Standing Exercises hip hike Standing Exercise Name standing on 4 in step Side bilateral Reps/Minutes 6 Comments rail Manual Therapy Treatment Soft Tissue Mobilization hip flexors Body Location R hip flexor & abdomen w/LTR Mobilization Type Strumming,Sustained Pressure Intensity/Depth Moderate Body Position Hooklying gluteals Body Location R glutes & piriformis Mobilization Type Sustained Pressure Intensity/Depth Moderate Body Position Sidelying thigh Body Location ITB Mobilization Type Myofascial Release,Rolling Intensity/Depth Moderate Body Position Sidelying lumbar scar Body Location scar lumbar Mobilization Type Myofascial Release Intensity/Depth Superficial Body Position Sidelying Comments w/post dep/ant elevation Joint Mobilizations innominate Joint R Direction ER FM hip Joint R Direction distraction & inf glide PT-OP-T Assessment and Plan Start: 12/12/19 07:41 Freq: Status: Active Protocol: Document 01/09/20 11:22 [facility] (Rec: 01/09/20 11:26 [facility] [id number]) Physical Therapy Assessment Goals sitting Catering And Events Manager Goal (LTG) Pt will report being able to sit for up to 30 min without inc pain in BLE. LTG Duration 02/18/20 Walking Short Term Goal (STG) Pt will be able to walk at least 1/4 mile w/o AD, seated rest break or inc in pain no more than 2 points on VAS. STG Duration 01/19/20 Catering And Events Manager Goal (LTG) Pt will be able to walk 1 mile w/o AD, seated rest break or inc in pain no more than 2 point on VAS. LTG Duration 02/18/20 3 Impairment [id number]; FGA 19/30 Short Term Goal (STG) Pt will score >50 on MELTON to show improved balance and safe for community amb without AD. STG Duration 01/19/20 Mcc Goal (LTG) Pt will score >25 on FGA to show improvement in balance & dec risk for falls LTG Duration 02/18/20 2 Impairment strength Short Term Goal (STG) Pt will be indep with HEP STG Duration 01/19/20 Catering And Events Manager Goal (LTG) Pt will score at least 4+/5 in all planes for LE strength and 2/5 LPM without pain to allow for greater ease in daily activities. LTG Duration 02/18/20 1 Impairment sit<>Stand Short Term Goal (STG) Pt will be able to do 5 sit to stands in 13 sec to show improved LE strength. STG Duration 01/19/20 Mcc Goal (LTG) Pt will be able to do 12 sit to stands in 30 sec to show dec risk for falls and imrpoved functional LE strength LTG Duration 02/18/20 Assessment Summary Assessment Pt had signifiacnt difficulty with hip hike on step. He especially ahd difficulty with hiking R hip up. He has dec core control & glute med activiationt hat cause this. Physical Therapy Plan Frequency and Duration Frequency of Treatment 2x/Week Duration of Treatment 2 months Plan of Care Start Date 12/19/19 Plan of Care End Date 02/18/20 Next Visit Focus/Plan Next Note Type Treatment Note Next Visit Plan cont to work on segmental control & work on pelvis mobility
--- NOTE | 2020-01-29 13:37 | PT.OPDS ---
Current Diagnoses Pain in right leg (01/09/20) Pain in left leg (01/09/20) Difficulty in walking, not elsewhere classified (01/09/20) Abnormal posture (01/09/20) Weakness (01/09/20) Visit Care Team Role Provider Type Sourav Gamboa MD Attending Provider Non-Staff Family Provider Primary Care Provider Referring Provider Specialty: Medical Address: [address] [place] [address], [phone] Email: Visit Number Visit Number 7 Discharge Summary PT-OP-T Assessment and Plan Start: 12/12/19 07:41 Freq: Status: Active Protocol: Document 01/29/20 13:36 [facility] (Rec: 01/29/20 13:37 [facility] [id number]) Physical Therapy Assessment Assessment Summary Assessment Pt has big toe infection at this time and is being treated by molder machine. At this time, DC d/t pt cannot attend PT during his medical treatment for his foot. He was making progress until big toe was giving him pain, which impaired his gait. Pt woudl benefit from cont PT once foot issue resolved. Physical Therapy Plan Discharge Physical Therapy Discharge Reasons Change in Medical Status
== END 2020-03-21 13:41 ==
LOC: PHYS 10:30
PROVIDERS: Family Provider Family Medicine; PCP Family Medicine; Referring Provider Family Medicine; Visit Provider Family Medicine
DX: M79.605 Pain in left leg (principal); R53.1 Weakness; R26.2 Difficulty in walking, not elsewhere classified; R29.3 Abnormal posture; M79.604 Pain in right leg
CPT/HCPCS: 97110; 97112; 97116; 97140; 97162; 97535

== ENCOUNTER → 2020-02-01 09:42 | Outpatient (CLI) | payer MEDICARE, BC, SELFPAY ==
--- NOTE | 2020-02-01 | DI.RAD.S_ITS ---
PROCEDURE: XR TOE RT MIN 2V INDICATIONS: cellulitis and gout of right hallix TECHNIQUE: 3 views of the right toe(s) acquired. [facility] 10:29. [facility] , XR TOE(S) RIGHT, 01/05/2017, 11:01. FINDINGS: Bones: No fracture. 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 Diffuse interphalangeal osteoarthritis. There is also diffuse midfoot and hindfoot degenerative sclerosis and spurring. Possible marginal erosion seen at the base of the proximal phalanx of the great toe. Soft tissues: No suspicious soft tissue densities. 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 Possible marginal erosion at the 1st MTP joint. This appears unchanged since 01/05/17 Dictated by: Dany Howard M.D. on 02/01/2020 at 11:53 Approved by: Dany Howard M.D. on 02/01/2020 at 12:01
== END ==
PROVIDERS: Family Provider Family Medicine; PCP Family Medicine; Referring Provider Podiatrist; Visit Provider Podiatrist
DX: L03.031 Cellulitis of right toe (principal); M10.9 Gout, unspecified; M19.071 Primary osteoarthritis, right ankle and foot
CPT/HCPCS: 73660

== ENCOUNTER → 2020-04-08 14:42 | Outpatient (CLI) | payer MEDICARE, BC, SELFPAY ==
[2020-04-08] MEDS: COVID-19 VACC #1, MRNA(MOD) 100 MCG/0.5 ML VIAL IM (14:54)
== END ==
PROVIDERS: Family Provider Family Medicine; PCP Family Medicine; Visit Provider Internal Medicine
DX: Z23 Encounter for immunization (principal)
CPT/HCPCS: 0011A; 91301

== ENCOUNTER → 2020-05-06 15:03 | Outpatient (CLI) | payer MEDICARE, BC, SELFPAY ==
[2020-05-06] MEDS: COVID-19 VACC #2, MRNA(MOD) 100 MCG/0.5 ML VIAL IM (15:12)
== END ==
PROVIDERS: Family Provider Family Medicine; PCP Family Medicine; Visit Provider Internal Medicine
DX: Z23 Encounter for immunization (principal)
CPT/HCPCS: 0012A; 91301

== ENCOUNTER 2021-05-13 09:00 | Outpatient (RCR) | payer MEDICARE, BC, SELFPAY ==
--- NOTE | 2020-12-01 17:01 | PT.OIE ---
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 HTN (hypertension) Hyperlipidemia Osteoarthritis Painful total knee replacement, right Right bundle branch block S/p reverse total shoulder arthroplasty Sleep apnea Past Surgical History (Last Reviewed 10/26/19 @ 09:24 by Willam Lund MD) 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 Visit Care Team Role Provider Type Sourav Gamboa MD Attending Provider Non-Staff Family Provider Primary Care Provider Referring Provider Specialty: Medical Address: [address] [place] [address], [facility] Email: Physical Therapy Initial Evaluation PT-OP-A Visit Information Start: 11/27/20 13:42 Freq: Status: Active Protocol: Document 12/01/20 14:05 [facility] (Rec: 12/01/20 15:18 [facility] [id number]) Out-Patient Physical Therapy Visit Information Visit Information Visit Type Initial Evaluation Visit Note 03/23 Visit Start Time 14:30 Visit Stop Time 15:15 Total Visit Minutes 45 Visit Number 1 Number of DRY CLEANING COUNTER CLERK Visits 0 PT-OP-B Current Condition Start: 11/27/20 13:42 Freq: Status: Active Protocol: Document 12/01/20 14:05 [facility] (Rec: 12/01/20 15:18 [facility] [id number]) Current Condition History of Current Condition Onset Date worse over the past year Current Complaints balance, gait History of Current Condition Pt reports increasing difficulty with walking over uneven surfaces and has trouble w/stairs and curbs. In random intervals, R and LLE feels like they may give out ( mostly knee giving out sensation). Pt reports B foot pain that is gout like. pt reprots knees hurt at night with occasionally that discomfort being enough to wake him. Pt reports over the past year, inc difficulty with getting out of stair and feeling imbalance when first getting up. Pt reports LB is stiff and he is discouraged because he is trying to do his regular old PT exercises and trying tto walk but it hurts like hell to his legs, hips, knees, feet. He does stretches including bending over. He feels like his walk is a jarring walk and cannot walk on uneven ground. He has to hold a railing when stepping down and feels really uncertain. Pt reports he has been in pain since he was 22 years old. he does not want palliative care. Pt feels like he is occ feeling anticipatory pain and thinks he may have to talk to a psychiatrist. Pt got an electric bike with a low step through and he is scared to get on it. Pt reports he also can't get off the ground w/o pulling up on something. Pt can't get his leg up underneath himself and cannot lift his leg. Prior Treatments and Tests PT in past Treatment Goals Patient/Caregiver Goals Be able to walk distances & be able to walk a trail, be more confident about balance, have an analysis of gaito understand dysfunction, be able to go up/down stairs w/o feeling unstable Personal Factors Other Personal Factors That May Effect B TSA, R TKA, mult hand Therapy/Recovery surgeries, drainage of R hallux & removal of gout crystals, T11-12, L2-3, 3-4, 4 -5 lami and L4-5 fusion PT-OP-C Subjective Start: 11/27/20 13:42 Freq: Status: Active Protocol: Document 12/01/20 14:05 [facility] (Rec: 12/01/20 18:10 [facility] [id number]) Patient Questionnaires ABC- Activity Specific Balance Confidence Scale ABC Score 72% (pt did not fill out 2 d/t not applicable) PT-OP-D Balance Start: 11/27/20 13:42 Freq: Status: Active Protocol: Document 12/01/20 14:05 [facility] (Rec: 12/01/20 15:18 [facility] [id number]) Balance Tests Single Limb Standing Single Limb- Right 2sec w./lat lean & UEs uses Single Limb- Left 5 sec w./lat lean & UEs uses PT-OP-E Functional Tests Start: 11/27/20 13:42 Freq: Status: Active Protocol: Document 12/01/20 14:05 [facility] (Rec: 12/01/20 15:18 [facility] [id number]) Functional Tests 6 Minute Walk Test Distance 665ft Comments 1 rest break, hip pain B 30 Second Sit to Stand Test Score 7x Five Times Sit to Stand Test Score 19 sec PT-OP-G Mobility & Gait Start: 11/27/20 13:42 Freq: Status: Active Protocol: Document 12/01/20 14:05 [facility] (Rec: 12/01/20 15:18 [facility] [id number]) OP Mobility Evaluation Bed Mobility Rolling able to roll Supine to and from Sit required assist to sit up Transfers Sit to Stand slow and very slow to start moving OP Gait Assessment Comments Gait Comments lat lean w/WB R>L PT-OP-J Posture/Palpation/Skin Start: 11/27/20 13:42 Freq: Status: Active Protocol: Document 12/01/20 14:05 [facility] (Rec: 12/01/20 15:18 [facility] [id number]) Posture Evaluation Comments Posture Comments fwd flex posture PT-OP-M Strength Start: 11/27/20 13:42 Freq: Status: Active Protocol: Document 12/01/20 14:05 [facility] (Rec: 12/01/20 15:18 [facility] [id number]) Hip Strength Hip Manual Muscle Testing Right Flexion (L2) 3 Fair Extension (S1) 2+ Poor+ Abduction 2- Poor- External Rotation 3+ Fair+ Internal Rotation 3+ Fair+ Left Flexion (L2) 3- Fair- Extension (S1) 2+ Poor+ Abduction 2+ Poor+ External Rotation 4 Good Internal Rotation 3+ Fair+ Knee Strength Knee Manual Muscle Testing Right Flexion (S2) 4+ Good+ Extension (L3) 4- Good- Left Flexion (S2) 4 Good Extension (L3) 4- Good- Ankle/Foot Strength Ankle and Foot Manual Muscle Testing Right Dorsiflexion (L4) 5 Normal Plantarflexion (S1) 5 Normal Left Dorsiflexion (L4) 5 Normal Plantarflexion (S1) 5 Normal Comments PF tested seated PT-OP-Q Treatments Start: 11/27/20 13:42 Freq: Status: Active Protocol: Document 12/01/20 14:05 [facility] (Rec: 12/01/20 18:10 [facility] [id number]) Self-Care/Home Management Treatment Education Other Education discussion re: how pain will affect his balance and it is important to treat his pain, discussed working w/pain psychologist, ND, and/or pain MD to help improve pain and therefore improve funciton. PT-OP-T Assessment and Plan Start: 11/27/20 13:42 Freq: Status: Active Protocol: Document 12/01/20 14:05 [facility] (Rec: 12/01/20 15:18 [facility] [id number]) Physical Therapy Assessment Rehab Potential Rehabilitation Potential Good Evaluation Complexity Number of Personal Factors/Comorbidities 3 or More Number of Body Systems Impaired 4 or More Clinical Presentation at Evaluation Evolving Impairments Impairments Activity Tolerance,Balance, Functional Activities, Functional Mobility,Gait,Pain, Posture,ROM,Soft Tissue Mobility,Strength,Transfers Goals activities Short Term Goal (STG) Pt will be able to go up and down a curb and stairs w/o LOB w/o UE support. STG Duration 01/31/21 Residential Goal (LTG) Pt will be able to go for 1 mile walks with no more than 4 /10 pain. LTG Duration 03/02/21 balance Short Term Goal (STG) Pt will be able to do SLS 10 sec B STG Duration 01/31/21 Machine Sander Goal (LTG) Pt will be able to score at least 25/30 on FGA to show improved balance and low risk for falls. LTG Duration 03/02/21 strength Short Term Goal (STG) Pt will be indep w/ HEP STG Duration 01/11/21 Machine Sander Goal (LTG) Pt will score at least 1 full MMT grade higher on all LE MMT in order to improve pt joint stability and dec pain and improve strength to improve pt 's ease w/activities. LTG Duration 03/02/21 sit to stand Short Term Goal (STG) Pt will improve 5x sit to stand test to no greater than 15 sec (norm 12 sec) to show improved functional ability. STG Duration 01/31/21 Residential Goal (LTG) Pt will improve 30 sec sit to stand score to 12x to show improved balance and LE strength LTG Duration 03/02/21 6 min walk Short Term Goal (STG) Pt will be able to complete 6 min walk test without requring a rest break STG Duration 01/12/21 Machine Sander Goal (LTG) Pt waill be able to walk 1171ft with no more than 2/10 pain after to show more age related norms for functional abiltiy in gait. LTG Duration 03/03/21 Assessment Summary Assessment Pt presents w/main c/o of concern over his current balance and gait w/significant feelings of instability and dec functional ability w/ increased difficulty w/up/down from chairs, especially lower surfaces. He has chronic pain which he dismisses when questioned often, but was noteable during 6 min walk test, causing him to sit down d/t hip discomfort about 3.5 min into testing. He has significant weakness w/B hips which likely affects his back, knee and hip pain that pt complains of and limits him w/ functional ability. He shows dec balance and slower movement which has gotten worse over the past year. He would benefit from skilled PT to work on these deficits to return him to more functional ability. Physical Therapy Plan Frequency and Duration Frequency of Treatment 2x/Week Duration of Treatment 3 months Plan of Care Start Date 12/01/20 Plan of Care End Date 03/02/21 Therapeutic Interventions Therapeutic Interventions Aquatic Therapy,Balance Training,Gait Training,Home Exercise Program,Joint Mobilizations,Manual Therapy, Neuromuscular Re-education, Patient/Caregiver Education, Self-Care/Home Management,Soft Tissue Mobilization,Taping, Therapeutic Activities, Therapeutic Exercises Modalities Cold Pack/Ice Massage,Electric Stimulation,Hot Packs, Ultrasound Next Visit Focus/Plan Next Note Type Treatment Note Next Visit Plan review exercises pt is doing at home, [place] MONIQUE BERG to assess balance
--- NOTE | 2020-12-03 10:23 | PT.OTN ---
Current Diagnoses Other chronic pain (12/03/20) Low back pain (12/03/20) Muscle weakness (generalized) (12/03/20) Difficulty in walking, not elsewhere classified (12/03/20) Unsteadiness on feet (12/03/20) Abnormal posture (12/03/20) Physical Therapy Treatment Note PT-OP-A Visit Information Start: 11/27/20 13:42 Freq: Status: Active Protocol: Document 12/03/20 10:08 [facility] (Rec: 12/03/20 10:23 [facility] [id number]) Out-Patient Physical Therapy Visit Information Visit Information Visit Type Treatment Note Visit Note 04/23 Visit Start Time 09:05 Visit Stop Time 09:47 Total Visit Minutes 42 Visit Number 2 Number of HEEL SEAT FITTER MACHINE Visits 0 PT-OP-B Current Condition Start: 11/27/20 13:42 Freq: Status: Active Protocol: Document 12/01/20 14:05 [facility] (Rec: 12/01/20 15:18 [facility] [id number]) Current Condition History of Current Condition Onset Date worse over the past year Current Complaints balance, gait History of Current Condition Pt reports increasing difficulty with walking over uneven surfaces and has trouble w/stairs and curbs. In random intervals, R and LLE feels like they may give out ( mostly knee giving out sensation). Pt reports B foot pain that is gout like. pt reprots knees hurt at night with occasionally that discomfort being enough to wake him. Pt reports over the past year, inc difficulty with getting out of stair and feeling imbalance when first getting up. Pt reports LB is stiff and he is discouraged because he is trying to do his regular old PT exercises and trying tto walk but it hurts like hell to his legs, hips, knees, feet. He does stretches including bending over. He feels like his walk is a jarring walk and cannot walk on uneven ground. He has to hold a railing when stepping down and feels really uncertain. Pt reports he has been in pain since he was 22 years old. he does not want palliative care. Pt feels like he is occ feeling anticipatory pain and thinks he may have to talk to a psychiatrist. Pt got an electric bike with a low step through and he is scared to get on it. Pt reports he also can't get off the ground w/o pulling up on something. Pt can't get his leg up underneath himself and cannot lift his leg. Prior Treatments and Tests PT in past Treatment Goals Patient/Caregiver Goals Be able to walk distances & be able to walk a trail, be more confident about balance, have an analysis of gaito understand dysfunction, be able to go up/down stairs w/o feeling unstable Personal Factors Other Personal Factors That May Effect B TSA, R TKA, mult hand Therapy/Recovery surgeries, drainage of R hallux & removal of gout crystals, T11-12, L2-3, 3-4, 4 -5 lami and L4-5 fusion PT-OP-C Subjective Start: 11/27/20 13:42 Freq: Status: Active Protocol: Document 12/03/20 10:08 [facility] (Rec: 12/03/20 10:23 [facility] [id number]) OP-PT Subjective Patient Comments Patient Comments pt reports he mostly feels unstable when stepping down unexpectantly. PT-OP-D Balance Start: 11/27/20 13:42 Freq: Status: Active Protocol: Document 12/01/20 14:05 [facility] (Rec: 12/01/20 15:18 [facility] [id number]) Balance Tests Single Limb Standing Single Limb- Right 2sec w./lat lean & UEs uses Single Limb- Left 5 sec w./lat lean & UEs uses PT-OP-E Functional Tests Start: 11/27/20 13:42 Freq: Status: Active Protocol: Document 12/03/20 10:08 [facility] (Rec: 12/03/20 10:23 [facility] [id number]) Functional Tests Dynamic Gait Index (DGI) Score 15 Functional Gait Assessment Score 14 PT-OP-G Mobility & Gait Start: 11/27/20 13:42 Freq: Status: Active Protocol: Document 12/01/20 14:05 [facility] (Rec: 12/01/20 15:18 [facility] [id number]) OP Mobility Evaluation Bed Mobility Rolling able to roll Supine to and from Sit required assist to sit up Transfers Sit to Stand slow and very slow to start moving OP Gait Assessment Comments Gait Comments lat lean w/WB R>L PT-OP-J Posture/Palpation/Skin Start: 11/27/20 13:42 Freq: Status: Active Protocol: Document 12/01/20 14:05 [facility] (Rec: 12/01/20 15:18 [facility] [id number]) Posture Evaluation Comments Posture Comments fwd flex posture PT-OP-M Strength Start: 11/27/20 13:42 Freq: Status: Active Protocol: Document 12/01/20 14:05 [facility] (Rec: 12/01/20 15:18 [facility] [id number]) Hip Strength Hip Manual Muscle Testing Right Flexion (L2) 3 Fair Extension (S1) 2+ Poor+ Abduction 2- Poor- External Rotation 3+ Fair+ Internal Rotation 3+ Fair+ Left Flexion (L2) 3- Fair- Extension (S1) 2+ Poor+ Abduction 2+ Poor+ External Rotation 4 Good Internal Rotation 3+ Fair+ Knee Strength Knee Manual Muscle Testing Right Flexion (S2) 4+ Good+ Extension (L3) 4- Good- Left Flexion (S2) 4 Good Extension (L3) 4- Good- Ankle/Foot Strength Ankle and Foot Manual Muscle Testing Right Dorsiflexion (L4) 5 Normal Plantarflexion (S1) 5 Normal Left Dorsiflexion (L4) 5 Normal Plantarflexion (S1) 5 Normal Comments PF tested seated PT-OP-Q Treatments Start: 11/27/20 13:42 Freq: Status: Active Protocol: Document 12/03/20 10:08 [facility] (Rec: 12/03/20 10:23 [facility] [id number]) Gym Equipment Shuttle Balance red clips Details WBOS & NBOS w/head turns fwd Therapeutic Exercises Sitting Exercises stretches Sitting Exercise Name 1. figure 4 2. piriformis knee to chest Side bilateral Reps/Minutes 30 sec ea Standing Exercises stretches Standing Exercise Name 1. duel calf & hip flexor stretch 2. B HS bend over stretch Side bilateral Reps/Minutes 30 sec ea sidestep Side bilateral Reps/Minutes 20ftx2 Comments focus on posture -attempted in mini squat but painful in back squat Standing Exercise Name mini at rial Side bilateral Reps/Minutes 20 Comments cues for full hip ext & knee not going past toes Neuro Re-Education Treatment Balance Activities SLS Details trials by rail Comments SLS w/trying to get hip under him but painful so worked on just SLS PT-OP-T Assessment and Plan Start: 11/27/20 13:42 Freq: Status: Active Protocol: Document 12/03/20 10:08 [facility] (Rec: 12/03/20 10:23 [facility] [id number]) Physical Therapy Assessment Goals activities Short Term Goal (STG) Pt will be able to go up and down a curb and stairs w/o LOB w/o UE support. STG Duration 01/31/21 Pork Cutlet Maker Goal (LTG) Pt will be able to go for 1 mile walks with no more than 4 /10 pain. LTG Duration 03/02/21 balance Short Term Goal (STG) Pt will be able to do SLS 10 sec B STG Duration 01/31/21 Pork Cutlet Maker Goal (LTG) Pt will be able to score at least 25/30 on FGA to show improved balance and low risk for falls. LTG Duration 03/02/21 strength Short Term Goal (STG) Pt will be indep w/ HEP STG Duration 01/11/21 Pork Cutlet Maker Goal (LTG) Pt will score at least 1 full MMT grade higher on all LE MMT in order to improve pt joint stability and dec pain and improve strength to improve pt 's ease w/activities. LTG Duration 03/02/21 sit to stand Short Term Goal (STG) Pt will improve 5x sit to stand test to no greater than 15 sec (norm 12 sec) to show improved functional ability. STG Duration 01/31/21 Pork Cutlet Maker Goal (LTG) Pt will improve 30 sec sit to stand score to 12x to show improved balance and LE strength LTG Duration 03/02/21 6 min walk Short Term Goal (STG) Pt will be able to complete 6 min walk test without requring a rest break STG Duration 01/12/21 Detention Goal (LTG) Pt waill be able to walk 1171ft with no more than 2/10 pain after to show more age related norms for functional abiltiy in gait. LTG Duration 03/03/21 Assessment Summary Assessment Pt shows significant balance deficits based on DGI and FGA testing today with signfiicant instability. He required correction with all exercises he was completing at home with small cues to improve form Physical Therapy Plan Frequency and Duration Frequency of Treatment 2x/Week Duration of Treatment 3 months Plan of Care Start Date 12/01/20 Plan of Care End Date 03/02/21 Next Visit Focus/Plan Next Note Type Treatment Note Next Visit Plan review exercises that pt was instructed in. work on hip mobilizations,
--- NOTE | 2020-12-15 16:14 | PT.OTN ---
Current Diagnoses Other chronic pain (12/15/20) Low back pain (12/15/20) Muscle weakness (generalized) (12/15/20) Difficulty in walking, not elsewhere classified (12/15/20) Unsteadiness on feet (12/15/20) Abnormal posture (12/15/20) Physical Therapy Treatment Note PT-OP-A Visit Information Start: 11/27/20 13:42 Freq: Status: Active Protocol: Document 12/15/20 15:08 [facility] (Rec: 12/17/20 08:14 [facility] [id number]) Out-Patient Physical Therapy Visit Information Visit Information Visit Type Treatment Note Visit Note 05/21 Visit Start Time 10:36 Visit Stop Time 11:15 Total Visit Minutes 39 Visit Number 3 Number of BALANCE WHEEL MOTION INSPECTOR Visits 0 PT-OP-B Current Condition Start: 11/27/20 13:42 Freq: Status: Active Protocol: Document 12/01/20 14:05 [facility] (Rec: 12/01/20 15:18 [facility] [id number]) Current Condition History of Current Condition Onset Date worse over the past year Current Complaints balance, gait History of Current Condition Pt reports increasing difficulty with walking over uneven surfaces and has trouble w/stairs and curbs. In random intervals, R and LLE feels like they may give out ( mostly knee giving out sensation). Pt reports B foot pain that is gout like. pt reprots knees hurt at night with occasionally that discomfort being enough to wake him. Pt reports over the past year, inc difficulty with getting out of stair and feeling imbalance when first getting up. Pt reports LB is stiff and he is discouraged because he is trying to do his regular old PT exercises and trying tto walk but it hurts like hell to his legs, hips, knees, feet. He does stretches including bending over. He feels like his walk is a jarring walk and cannot walk on uneven ground. He has to hold a railing when stepping down and feels really uncertain. Pt reports he has been in pain since he was 22 years old. he does not want palliative care. Pt feels like he is occ feeling anticipatory pain and thinks he may have to talk to a psychiatrist. Pt got an electric bike with a low step through and he is scared to get on it. Pt reports he also can't get off the ground w/o pulling up on something. Pt can't get his leg up underneath himself and cannot lift his leg. Prior Treatments and Tests PT in past Treatment Goals Patient/Caregiver Goals Be able to walk distances & be able to walk a trail, be more confident about balance, have an analysis of gaito understand dysfunction, be able to go up/down stairs w/o feeling unstable Personal Factors Other Personal Factors That May Effect B TSA, R TKA, mult hand Therapy/Recovery surgeries, drainage of R hallux & removal of gout crystals, T11-12, L2-3, 3-4, 4 -5 lami and L4-5 fusion PT-OP-C Subjective Start: 11/27/20 13:42 Freq: Status: Active Protocol: Document 12/15/20 15:08 [facility] (Rec: 12/17/20 08:14 [facility] [id number]) OP-PT Subjective Patient Comments Patient Comments Pt reprots glutes sore after walks. He tried his other walking shoes and theyw ere more comfortable. PT-OP-D Balance Start: 11/27/20 13:42 Freq: Status: Active Protocol: Document 12/01/20 14:05 [facility] (Rec: 12/01/20 15:18 [facility] [id number]) Balance Tests Single Limb Standing Single Limb- Right 2sec w./lat lean & UEs uses Single Limb- Left 5 sec w./lat lean & UEs uses PT-OP-E Functional Tests Start: 11/27/20 13:42 Freq: Status: Active Protocol: Document 12/03/20 10:08 [facility] (Rec: 12/03/20 10:23 [facility] [id number]) Functional Tests Dynamic Gait Index (DGI) Score 15 Functional Gait Assessment Score 14 PT-OP-G Mobility & Gait Start: 11/27/20 13:42 Freq: Status: Active Protocol: Document 12/01/20 14:05 [facility] (Rec: 12/01/20 15:18 [facility] [id number]) OP Mobility Evaluation Bed Mobility Rolling able to roll Supine to and from Sit required assist to sit up Transfers Sit to Stand slow and very slow to start moving OP Gait Assessment Comments Gait Comments lat lean w/WB R>L PT-OP-J Posture/Palpation/Skin Start: 11/27/20 13:42 Freq: Status: Active Protocol: Document 12/01/20 14:05 [facility] (Rec: 12/01/20 15:18 [facility] [id number]) Posture Evaluation Comments Posture Comments fwd flex posture PT-OP-M Strength Start: 11/27/20 13:42 Freq: Status: Active Protocol: Document 12/01/20 14:05 [facility] (Rec: 12/01/20 15:18 [facility] [id number]) Hip Strength Hip Manual Muscle Testing Right Flexion (L2) 3 Fair Extension (S1) 2+ Poor+ Abduction 2- Poor- External Rotation 3+ Fair+ Internal Rotation 3+ Fair+ Left Flexion (L2) 3- Fair- Extension (S1) 2+ Poor+ Abduction 2+ Poor+ External Rotation 4 Good Internal Rotation 3+ Fair+ Knee Strength Knee Manual Muscle Testing Right Flexion (S2) 4+ Good+ Extension (L3) 4- Good- Left Flexion (S2) 4 Good Extension (L3) 4- Good- Ankle/Foot Strength Ankle and Foot Manual Muscle Testing Right Dorsiflexion (L4) 5 Normal Plantarflexion (S1) 5 Normal Left Dorsiflexion (L4) 5 Normal Plantarflexion (S1) 5 Normal Comments PF tested seated PT-OP-Q Treatments Start: 11/27/20 13:42 Freq: Status: Active Protocol: Document 12/15/20 15:08 [facility] (Rec: 12/17/20 08:14 [facility] [id number]) Gym Equipment Shuttle Balance red clips Comments WBOS & NBOS w/head turns fwd & WBOS side fwd staggered stance & sdie NBOS w/o head turns Therapeutic Exercises Standing Exercises step up Side bilateral Equipment Used 4 in no rail Reps/Minutes 21 may Side bilateral Reps/Minutes 5 Manual Therapy Treatment Joint Mobilizations hip Joint R Comments inf glide FM Neuro Re-Education Treatment Balance Activities bosu Details standing balance Tandem Details fwd/back on line then tandem stance trials Reps/Duration 25ft ea Other Activities re-edu Comments hip flex traction facilitaiton at end range after manual treatment w/PT leg under pt leg PT-OP-T Assessment and Plan Start: 11/27/20 13:42 Freq: Status: Active Protocol: Document 12/15/20 15:08 [facility] (Rec: 12/17/20 08:14 [facility] [id number]) Physical Therapy Assessment Goals activities Short Term Goal (STG) Pt will be able to go up and down a curb and stairs w/o LOB w/o UE support. STG Duration 01/31/21 Binder Roller Goal (LTG) Pt will be able to go for 1 mile walks with no more than 4 /10 pain. LTG Duration 03/02/21 balance Short Term Goal (STG) Pt will be able to do SLS 10 sec B STG Duration 01/31/21 Snf Goal (LTG) Pt will be able to score at least 25/30 on FGA to show improved balance and low risk for falls. LTG Duration 03/02/21 strength Short Term Goal (STG) Pt will be indep w/ HEP STG Duration 01/11/21 Binder Roller Goal (LTG) Pt will score at least 1 full MMT grade higher on all LE MMT in order to improve pt joint stability and dec pain and improve strength to improve pt 's ease w/activities. LTG Duration 03/02/21 sit to stand Short Term Goal (STG) Pt will improve 5x sit to stand test to no greater than 15 sec (norm 12 sec) to show improved functional ability. STG Duration 01/31/21 Snf Goal (LTG) Pt will improve 30 sec sit to stand score to 12x to show improved balance and LE strength LTG Duration 03/02/21 6 min walk Short Term Goal (STG) Pt will be able to complete 6 min walk test without requring a rest break STG Duration 01/12/21 Binder Roller Goal (LTG) Pt waill be able to walk 1171ft with no more than 2/10 pain after to show more age related norms for functional abiltiy in gait. LTG Duration 03/03/21 Assessment Summary Assessment Pt did well with exercises today w/o c/o pain during session. He was able to walk mult steps tandem today fwd and back w/occ step to side to balance himself. Physical Therapy Plan Frequency and Duration Frequency of Treatment 2x/Week Duration of Treatment 3 months Plan of Care Start Date 12/01/20 Plan of Care End Date 03/02/21 Next Visit Focus/Plan Next Note Type Treatment Note Next Visit Plan review exercises that pt was instructed in. work on hip mobilizations & work on activities to challenge single leg balance & hip abd/ext strength
--- NOTE | 2020-12-18 18:37 | PT.OTN ---
Addendum entered and electronically signed by Denia Low PT 12/18/20 18:48: PT student instructed by PT during session and PT performed manual Original Note: Current Diagnoses Other chronic pain (12/18/20) Low back pain (12/18/20) Muscle weakness (generalized) (12/18/20) Difficulty in walking, not elsewhere classified (12/18/20) Unsteadiness on feet (12/18/20) Abnormal posture (12/18/20) Physical Therapy Treatment Note PT-OP-A Visit Information Start: 11/27/20 13:42 Freq: Status: Active Protocol: Document 12/18/20 13:38 JG (Rec: 12/18/20 13:48 JG [id number]) Out-Patient Physical Therapy Visit Information Visit Information Visit Type Treatment Note Visit Note 06/21 Visit Start Time 10:34 Visit Stop Time 11:15 Total Visit Minutes 41 Visit Number 4 Number of LAY UPS ASSEMBLER Visits 0 PT-OP-B Current Condition Start: 11/27/20 13:42 Freq: Status: Active Protocol: Document 12/01/20 14:05 [facility] (Rec: 12/01/20 15:18 [facility] [id number]) Current Condition History of Current Condition Onset Date worse over the past year Current Complaints balance, gait History of Current Condition Pt reports increasing difficulty with walking over uneven surfaces and has trouble w/stairs and curbs. In random intervals, R and LLE feels like they may give out ( mostly knee giving out sensation). Pt reports B foot pain that is gout like. pt reprots knees hurt at night with occasionally that discomfort being enough to wake him. Pt reports over the past year, inc difficulty with getting out of stair and feeling imbalance when first getting up. Pt reports LB is stiff and he is discouraged because he is trying to do his regular old PT exercises and trying tto walk but it hurts like hell to his legs, hips, knees, feet. He does stretches including bending over. He feels like his walk is a jarring walk and cannot walk on uneven ground. He has to hold a railing when stepping down and feels really uncertain. Pt reports he has been in pain since he was 22 years old. he does not want palliative care. Pt feels like he is occ feeling anticipatory pain and thinks he may have to talk to a psychiatrist. Pt got an electric bike with a low step through and he is scared to get on it. Pt reports he also can't get off the ground w/o pulling up on something. Pt can't get his leg up underneath himself and cannot lift his leg. Prior Treatments and Tests PT in past Treatment Goals Patient/Caregiver Goals Be able to walk distances & be able to walk a trail, be more confident about balance, have an analysis of gaito understand dysfunction, be able to go up/down stairs w/o feeling unstable Personal Factors Other Personal Factors That May Effect B TSA, R TKA, mult hand Therapy/Recovery surgeries, drainage of R hallux & removal of gout crystals, T11-12, L2-3, 3-4, 4 -5 lami and L4-5 fusion PT-OP-C Subjective Start: 11/27/20 13:42 Freq: Status: Active Protocol: Document 12/18/20 13:38 JG (Rec: 12/18/20 13:48 JG [id number]) OP-PT Subjective Patient Comments Patient Comments Pt reports feeling sore in muscles and joints after doing HEP. Pt reports glutes sore after walking, but feels he could increase his walking duration. PT-OP-D Balance Start: 11/27/20 13:42 Freq: Status: Active Protocol: Document 12/01/20 14:05 [facility] (Rec: 12/01/20 15:18 [facility] [id number]) Balance Tests Single Limb Standing Single Limb- Right 2sec w./lat lean & UEs uses Single Limb- Left 5 sec w./lat lean & UEs uses PT-OP-E Functional Tests Start: 11/27/20 13:42 Freq: Status: Active Protocol: Document 12/03/20 10:08 [facility] (Rec: 12/03/20 10:23 [facility] [id number]) Functional Tests Dynamic Gait Index (DGI) Score 15 Functional Gait Assessment Score 14 PT-OP-G Mobility & Gait Start: 11/27/20 13:42 Freq: Status: Active Protocol: Document 12/01/20 14:05 [facility] (Rec: 12/01/20 15:18 [facility] [id number]) OP Mobility Evaluation Bed Mobility Rolling able to roll Supine to and from Sit required assist to sit up Transfers Sit to Stand slow and very slow to start moving OP Gait Assessment Comments Gait Comments lat lean w/WB R>L PT-OP-J Posture/Palpation/Skin Start: 11/27/20 13:42 Freq: Status: Active Protocol: Document 12/01/20 14:05 [facility] (Rec: 12/01/20 15:18 [facility] [id number]) Posture Evaluation Comments Posture Comments fwd flex posture PT-OP-M Strength Start: 11/27/20 13:42 Freq: Status: Active Protocol: Document 12/01/20 14:05 [facility] (Rec: 12/01/20 15:18 [facility] [id number]) Hip Strength Hip Manual Muscle Testing Right Flexion (L2) 3 Fair Extension (S1) 2+ Poor+ Abduction 2- Poor- External Rotation 3+ Fair+ Internal Rotation 3+ Fair+ Left Flexion (L2) 3- Fair- Extension (S1) 2+ Poor+ Abduction 2+ Poor+ External Rotation 4 Good Internal Rotation 3+ Fair+ Knee Strength Knee Manual Muscle Testing Right Flexion (S2) 4+ Good+ Extension (L3) 4- Good- Left Flexion (S2) 4 Good Extension (L3) 4- Good- Ankle/Foot Strength Ankle and Foot Manual Muscle Testing Right Dorsiflexion (L4) 5 Normal Plantarflexion (S1) 5 Normal Left Dorsiflexion (L4) 5 Normal Plantarflexion (S1) 5 Normal Comments PF tested seated PT-OP-Q Treatments Start: 11/27/20 13:42 Freq: Status: Active Protocol: Document 12/18/20 13:38 JG (Rec: 12/18/20 13:48 JG [id number]) Therapeutic Exercises Standing Exercises Hip Ext/Abd diagonial Side bilateral Resistance L1, BW, slider Reps/Minutes 3x10 Comments 10xL1, 10xBW hip ext increased LB pain, slider diagonal felt good sidestep Side bilateral Resistance L1 Reps/Minutes 20ftx2 Comments felt in low back, decreased step width which decreased low back pain squat Standing Exercise Name sit to stand into chair Side bilateral Reps/Minutes 1x10 Comments cued for hip width apart Manual Therapy Treatment Soft Tissue Mobilization hip flexors Mobilization Type Sustained Pressure Intensity/Depth Moderate Body Position Supine Comments Left, with hip IR/ER thigh Mobilization Type Sustained Pressure Intensity/Depth Moderate Body Position Supine Comments Left rectus femoris and quad, with quad sets Neuro Re-Education Treatment Balance Activities Shuttle Board Details WBOS, NBOS Surface red clips Reps/Duration 5x8 Comments EO w head turns L<>R and Up<> down, EC PT-OP-T Assessment and Plan Start: 11/27/20 13:42 Freq: Status: Active Protocol: Document 12/18/20 13:38 [facility] (Rec: 12/18/20 13:54 JJason [id number]) Physical Therapy Assessment Rehab Potential Rehabilitation Potential Good Evaluation Complexity Number of Personal Factors/Comorbidities 3 or More Number of Body Systems Impaired 4 or More Clinical Presentation at Evaluation Evolving Impairments Impairments Activity Tolerance,Balance, Functional Activities, Functional Mobility,Gait,Pain, Posture,ROM,Soft Tissue Mobility,Strength,Transfers Goals activities Short Term Goal (STG) Pt will be able to go up and down a curb and stairs w/o LOB w/o UE support. STG Duration 01/31/21 Shake Cutter Goal (LTG) Pt will be able to go for 1 mile walks with no more than 4 /10 pain. LTG Duration 03/02/21 balance Short Term Goal (STG) Pt will be able to do SLS 10 sec B STG Duration 01/31/21 Custodial Goal (LTG) Pt will be able to score at least 25/30 on FGA to show improved balance and low risk for falls. LTG Duration 03/02/21 strength Short Term Goal (STG) Pt will be indep w/ HEP STG Duration 01/11/21 Custodial Goal (LTG) Pt will score at least 1 full MMT grade higher on all LE MMT in order to improve pt joint stability and dec pain and improve strength to improve pt 's ease w/activities. LTG Duration 03/02/21 sit to stand Short Term Goal (STG) Pt will improve 5x sit to stand test to no greater than 15 sec (norm 12 sec) to show improved functional ability. STG Duration 01/31/21 Custodial Goal (LTG) Pt will improve 30 sec sit to stand score to 12x to show improved balance and LE strength LTG Duration 03/02/21 6 min walk Short Term Goal (STG) Pt will be able to complete 6 min walk test without requring a rest break STG Duration 01/12/21 Custodial Goal (LTG) Pt waill be able to walk 1171ft with no more than 2/10 pain after to show more age related norms for functional abiltiy in gait. LTG Duration 03/03/21 Assessment Summary Assessment Pt completed exercises with mild increase in low back pain which was resolved with posture realignment. Hip ext was increasing LB pain, progressing to diagonal hip ext with slider did not increase LB pain. He was challenged with balance on the shuttle board especially with head turns up and down. Pt tolerated manual therapy and soft tissue mobilization well with slight greater ease into passive hip IR in hip extended position. Physical Therapy Plan Frequency and Duration Frequency of Treatment 2x/Week Duration of Treatment 3 months Plan of Care Start Date 12/01/20 Plan of Care End Date 03/02/21 Therapeutic Interventions Therapeutic Interventions Balance Training,Home Exercise Program,Manual Therapy, Patient/Caregiver Education, Self-Care/Home Management,Soft Tissue Mobilization, Therapeutic Activities, Therapeutic Exercises Next Visit Focus/Plan Next Note Type Treatment Note Next Visit Plan manual therapy and soft tissue treatment for lateral thigh and hip bilaterally
--- NOTE | 2020-12-22 10:37 | PT.OTN ---
Current Diagnoses Other chronic pain (12/22/20) Low back pain (12/22/20) Muscle weakness (generalized) (12/22/20) Difficulty in walking, not elsewhere classified (12/22/20) Unsteadiness on feet (12/22/20) Abnormal posture (12/22/20) Physical Therapy Treatment Note PT-OP-A Visit Information Start: 11/27/20 13:42 Freq: Status: Active Protocol: Document 12/22/20 09:42 [facility] (Rec: 12/22/20 10:37 [facility] [id number]) Out-Patient Physical Therapy Visit Information Visit Information Visit Type Treatment Note Visit Note 07/21 Visit Start Time 09:48 Visit Stop Time 10:29 Total Visit Minutes 41 Visit Number 5 Number of HEALTH CARE SOCIAL WORKER Visits 0 PT-OP-B Current Condition Start: 11/27/20 13:42 Freq: Status: Active Protocol: Document 12/01/20 14:05 [facility] (Rec: 12/01/20 15:18 [facility] [id number]) Current Condition History of Current Condition Onset Date worse over the past year Current Complaints balance, gait History of Current Condition Pt reports increasing difficulty with walking over uneven surfaces and has trouble w/stairs and curbs. In random intervals, R and LLE feels like they may give out ( mostly knee giving out sensation). Pt reports B foot pain that is gout like. pt reprots knees hurt at night with occasionally that discomfort being enough to wake him. Pt reports over the past year, inc difficulty with getting out of stair and feeling imbalance when first getting up. Pt reports LB is stiff and he is discouraged because he is trying to do his regular old PT exercises and trying tto walk but it hurts like hell to his legs, hips, knees, feet. He does stretches including bending over. He feels like his walk is a jarring walk and cannot walk on uneven ground. He has to hold a railing when stepping down and feels really uncertain. Pt reports he has been in pain since he was 22 years old. he does not want palliative care. Pt feels like he is occ feeling anticipatory pain and thinks he may have to talk to a psychiatrist. Pt got an electric bike with a low step through and he is scared to get on it. Pt reports he also can't get off the ground w/o pulling up on something. Pt can't get his leg up underneath himself and cannot lift his leg. Prior Treatments and Tests PT in past Treatment Goals Patient/Caregiver Goals Be able to walk distances & be able to walk a trail, be more confident about balance, have an analysis of gaito understand dysfunction, be able to go up/down stairs w/o feeling unstable Personal Factors Other Personal Factors That May Effect B TSA, R TKA, mult hand Therapy/Recovery surgeries, drainage of R hallux & removal of gout crystals, T11-12, L2-3, 3-4, 4 -5 lami and L4-5 fusion PT-OP-C Subjective Start: 11/27/20 13:42 Freq: Status: Active Protocol: Document 12/22/20 09:42 [facility] (Rec: 12/22/20 10:37 [facility] [id number]) OP-PT Subjective Patient Comments Patient Comments Pt reports sore in hips,knees and feet have been sore after walks so has not tried to increase them. Notes he fell over putting band around his feet then trying to move to counter for sidesteps PT-OP-D Balance Start: 11/27/20 13:42 Freq: Status: Active Protocol: Document 12/01/20 14:05 [facility] (Rec: 12/01/20 15:18 [facility] [id number]) Balance Tests Single Limb Standing Single Limb- Right 2sec w./lat lean & UEs uses Single Limb- Left 5 sec w./lat lean & UEs uses PT-OP-E Functional Tests Start: 11/27/20 13:42 Freq: Status: Active Protocol: Document 12/03/20 10:08 [facility] (Rec: 12/03/20 10:23 [facility] [id number]) Functional Tests Dynamic Gait Index (DGI) Score 15 Functional Gait Assessment Score 14 PT-OP-G Mobility & Gait Start: 11/27/20 13:42 Freq: Status: Active Protocol: Document 12/01/20 14:05 [facility] (Rec: 12/01/20 15:18 [facility] [id number]) OP Mobility Evaluation Bed Mobility Rolling able to roll Supine to and from Sit required assist to sit up Transfers Sit to Stand slow and very slow to start moving OP Gait Assessment Comments Gait Comments lat lean w/WB R>L PT-OP-J Posture/Palpation/Skin Start: 11/27/20 13:42 Freq: Status: Active Protocol: Document 12/01/20 14:05 [facility] (Rec: 12/01/20 15:18 [facility] [id number]) Posture Evaluation Comments Posture Comments fwd flex posture PT-OP-M Strength Start: 11/27/20 13:42 Freq: Status: Active Protocol: Document 12/01/20 14:05 [facility] (Rec: 12/01/20 15:18 [facility] [id number]) Hip Strength Hip Manual Muscle Testing Right Flexion (L2) 3 Fair Extension (S1) 2+ Poor+ Abduction 2- Poor- External Rotation 3+ Fair+ Internal Rotation 3+ Fair+ Left Flexion (L2) 3- Fair- Extension (S1) 2+ Poor+ Abduction 2+ Poor+ External Rotation 4 Good Internal Rotation 3+ Fair+ Knee Strength Knee Manual Muscle Testing Right Flexion (S2) 4+ Good+ Extension (L3) 4- Good- Left Flexion (S2) 4 Good Extension (L3) 4- Good- Ankle/Foot Strength Ankle and Foot Manual Muscle Testing Right Dorsiflexion (L4) 5 Normal Plantarflexion (S1) 5 Normal Left Dorsiflexion (L4) 5 Normal Plantarflexion (S1) 5 Normal Comments PF tested seated PT-OP-Q Treatments Start: 11/27/20 13:42 Freq: Status: Active Protocol: Document 12/22/20 09:42 [facility] (Rec: 12/22/20 10:37 [facility] [id number]) Gym Equipment Shuttle Balance red clips Comments WBOS & NBOS w/head turns fwd & WBOS side fwd staggered stance & sdie NBOS w/o head turns Therapeutic Exercises Standing Exercises step up Side bilateral Equipment Used 5 in no rail as pt able-lean against rail for balance prn Reps/Minutes 21 may Side bilateral Equipment Used Lvl 1 Reps/Minutes 15 Manual Therapy Treatment Soft Tissue Mobilization TFL Body Location TFL L Mobilization Type Sustained Pressure Intensity/Depth Moderate Body Position Supine Comments with hip in IR IT band Body Location L Mobilization Type Rolling,Strumming Comments w/hip ER/IR & quad set Joint Mobilizations innominate Joint L IR FM PT-OP-T Assessment and Plan Start: 11/27/20 13:42 Freq: Status: Active Protocol: Document 12/22/20 09:42 [facility] (Rec: 12/22/20 10:37 [facility] [id number]) Physical Therapy Assessment Goals activities Short Term Goal (STG) Pt will be able to go up and down a curb and stairs w/o LOB w/o UE support. STG Duration 01/31/21 Usp Goal (LTG) Pt will be able to go for 1 mile walks with no more than 4 /10 pain. LTG Duration 03/02/21 balance Short Term Goal (STG) Pt will be able to do SLS 10 sec B STG Duration 01/31/21 Regulatory Compliance Manager Goal (LTG) Pt will be able to score at least 25/30 on FGA to show improved balance and low risk for falls. LTG Duration 03/02/21 strength Short Term Goal (STG) Pt will be indep w/ HEP STG Duration 01/11/21 Usp Goal (LTG) Pt will score at least 1 full MMT grade higher on all LE MMT in order to improve pt joint stability and dec pain and improve strength to improve pt 's ease w/activities. LTG Duration 03/02/21 sit to stand Short Term Goal (STG) Pt will improve 5x sit to stand test to no greater than 15 sec (norm 12 sec) to show improved functional ability. STG Duration 01/31/21 Usp Goal (LTG) Pt will improve 30 sec sit to stand score to 12x to show improved balance and LE strength LTG Duration 03/02/21 6 min walk Short Term Goal (STG) Pt will be able to complete 6 min walk test without requring a rest break STG Duration 01/12/21 Regulatory Compliance Manager Goal (LTG) Pt waill be able to walk 1171ft with no more than 2/10 pain after to show more age related norms for functional abiltiy in gait. LTG Duration 03/03/21 Assessment Summary Assessment Pt reminded to bring chair close to counter and put band on sitting and stand up to counter when band is around legs. He did well with balance today but still has diffiulty w/going to SLS w/step up and wt shift up. Physical Therapy Plan Frequency and Duration Frequency of Treatment 2x/Week Duration of Treatment 3 months Plan of Care Start Date 12/01/20 Plan of Care End Date 03/02/21 Next Visit Focus/Plan Next Note Type Treatment Note Next Visit Plan manual therapy and soft tissue treatment for lateral thigh and hip bilaterally, cont to work on hip strength
--- NOTE | 2020-12-24 11:52 | PT.OTN ---
Current Diagnoses Other chronic pain (12/24/20) Low back pain (12/24/20) Muscle weakness (generalized) (12/24/20) Difficulty in walking, not elsewhere classified (12/24/20) Unsteadiness on feet (12/24/20) Abnormal posture (12/24/20) Physical Therapy Treatment Note PT-OP-A Visit Information Start: 11/27/20 13:42 Freq: Status: Active Protocol: Document 12/24/20 10:05 [facility] (Rec: 12/24/20 11:49 [facility] [id number]) Out-Patient Physical Therapy Visit Information Visit Information Visit Type Treatment Note Visit Note 08/21 Visit Start Time 09:49 Visit Stop Time 10:30 Total Visit Minutes 41 Visit Number 6 Number of COREMAKER HELPER Visits 0 PT-OP-B Current Condition Start: 11/27/20 13:42 Freq: Status: Active Protocol: Document 12/01/20 14:05 [facility] (Rec: 12/01/20 15:18 [facility] [id number]) Current Condition History of Current Condition Onset Date worse over the past year Current Complaints balance, gait History of Current Condition Pt reports increasing difficulty with walking over uneven surfaces and has trouble w/stairs and curbs. In random intervals, R and LLE feels like they may give out ( mostly knee giving out sensation). Pt reports B foot pain that is gout like. pt reprots knees hurt at night with occasionally that discomfort being enough to wake him. Pt reports over the past year, inc difficulty with getting out of stair and feeling imbalance when first getting up. Pt reports LB is stiff and he is discouraged because he is trying to do his regular old PT exercises and trying tto walk but it hurts like hell to his legs, hips, knees, feet. He does stretches including bending over. He feels like his walk is a jarring walk and cannot walk on uneven ground. He has to hold a railing when stepping down and feels really uncertain. Pt reports he has been in pain since he was 22 years old. he does not want palliative care. Pt feels like he is occ feeling anticipatory pain and thinks he may have to talk to a psychiatrist. Pt got an electric bike with a low step through and he is scared to get on it. Pt reports he also can't get off the ground w/o pulling up on something. Pt can't get his leg up underneath himself and cannot lift his leg. Prior Treatments and Tests PT in past Treatment Goals Patient/Caregiver Goals Be able to walk distances & be able to walk a trail, be more confident about balance, have an analysis of gaito understand dysfunction, be able to go up/down stairs w/o feeling unstable Personal Factors Other Personal Factors That May Effect B TSA, R TKA, mult hand Therapy/Recovery surgeries, drainage of R hallux & removal of gout crystals, T11-12, L2-3, 3-4, 4 -5 lami and L4-5 fusion PT-OP-C Subjective Start: 11/27/20 13:42 Freq: Status: Active Protocol: Document 12/24/20 10:05 [facility] (Rec: 12/24/20 11:49 [facility] [id number]) OP-PT Subjective Patient Comments Patient Comments Pt reports compliance w/ exercises PT-OP-D Balance Start: 11/27/20 13:42 Freq: Status: Active Protocol: Document 12/01/20 14:05 [facility] (Rec: 12/01/20 15:18 [facility] [id number]) Balance Tests Single Limb Standing Single Limb- Right 2sec w./lat lean & UEs uses Single Limb- Left 5 sec w./lat lean & UEs uses PT-OP-E Functional Tests Start: 11/27/20 13:42 Freq: Status: Active Protocol: Document 12/03/20 10:08 [facility] (Rec: 12/03/20 10:23 [facility] [id number]) Functional Tests Dynamic Gait Index (DGI) Score 15 Functional Gait Assessment Score 14 PT-OP-G Mobility & Gait Start: 11/27/20 13:42 Freq: Status: Active Protocol: Document 12/01/20 14:05 [facility] (Rec: 12/01/20 15:18 [facility] [id number]) OP Mobility Evaluation Bed Mobility Rolling able to roll Supine to and from Sit required assist to sit up Transfers Sit to Stand slow and very slow to start moving OP Gait Assessment Comments Gait Comments lat lean w/WB R>L PT-OP-J Posture/Palpation/Skin Start: 11/27/20 13:42 Freq: Status: Active Protocol: Document 12/01/20 14:05 [facility] (Rec: 12/01/20 15:18 [facility] [id number]) Posture Evaluation Comments Posture Comments fwd flex posture PT-OP-M Strength Start: 11/27/20 13:42 Freq: Status: Active Protocol: Document 12/01/20 14:05 [facility] (Rec: 12/01/20 15:18 [facility] [id number]) Hip Strength Hip Manual Muscle Testing Right Flexion (L2) 3 Fair Extension (S1) 2+ Poor+ Abduction 2- Poor- External Rotation 3+ Fair+ Internal Rotation 3+ Fair+ Left Flexion (L2) 3- Fair- Extension (S1) 2+ Poor+ Abduction 2+ Poor+ External Rotation 4 Good Internal Rotation 3+ Fair+ Knee Strength Knee Manual Muscle Testing Right Flexion (S2) 4+ Good+ Extension (L3) 4- Good- Left Flexion (S2) 4 Good Extension (L3) 4- Good- Ankle/Foot Strength Ankle and Foot Manual Muscle Testing Right Dorsiflexion (L4) 5 Normal Plantarflexion (S1) 5 Normal Left Dorsiflexion (L4) 5 Normal Plantarflexion (S1) 5 Normal Comments PF tested seated PT-OP-Q Treatments Start: 11/27/20 13:42 Freq: Status: Active Protocol: Document 12/24/20 10:05 [facility] (Rec: 12/24/20 11:49 [facility] [id number]) Therapeutic Exercises Sitting Exercises core Sitting Exercise Name diagonal pulls Side bilateral Equipment Used L2 Reps/Minutes 15 Comments comfortable range Standing Exercises rotation Standing Exercise Name staggered stance w/alt UE flex /ext w/rot trunk Side bilateral Reps/Minutes 15 squat Standing Exercise Name 1.sit to stand into chair w/ slow control 2.mini squat at rail Side bilateral Reps/Minutes x15 ea Comments cued for hip width apart Manual Therapy Treatment Soft Tissue Mobilization IT band Body Location L Mobilization Type Rolling,Strumming Comments w/hip ER/IR Neuro Re-Education Treatment Balance Activities hurdles Comments 1. fwd over 6 x6 2. over 6 curved to R then L x1 ea PT-OP-T Assessment and Plan Start: 11/27/20 13:42 Freq: Status: Active Protocol: Document 12/24/20 10:05 [facility] (Rec: 12/24/20 11:49 [facility] [id number]) Physical Therapy Assessment Goals activities Short Term Goal (STG) Pt will be able to go up and down a curb and stairs w/o LOB w/o UE support. STG Duration 01/31/21 Waterway Traffic Checker Goal (LTG) Pt will be able to go for 1 mile walks with no more than 4 /10 pain. LTG Duration 03/02/21 balance Short Term Goal (STG) Pt will be able to do SLS 10 sec B STG Duration 01/31/21 Chcf Goal (LTG) Pt will be able to score at least 25/30 on FGA to show improved balance and low risk for falls. LTG Duration 03/02/21 strength Short Term Goal (STG) Pt will be indep w/ HEP STG Duration 01/11/21 Waterway Traffic Checker Goal (LTG) Pt will score at least 1 full MMT grade higher on all LE MMT in order to improve pt joint stability and dec pain and improve strength to improve pt 's ease w/activities. LTG Duration 03/02/21 sit to stand Short Term Goal (STG) Pt will improve 5x sit to stand test to no greater than 15 sec (norm 12 sec) to show improved functional ability. STG Duration 01/31/21 [facility]cf Goal (LTG) Pt will improve 30 sec sit to stand score to 12x to show improved balance and LE strength LTG Duration 03/02/21 6 min walk Short Term Goal (STG) Pt will be able to complete 6 min walk test without requring a rest break STG Duration 01/12/21 Waterway Traffic Checker Goal (LTG) Pt waill be able to walk 1171ft with no more than 2/10 pain after to show more age related norms for functional abiltiy in gait. LTG Duration 03/03/21 Assessment Summary Assessment Pt encouraged to work w/MD that deals w/pain as that is his biggest limiter. Pt given education on DO local, pain mangement local and in [place] region options, and [place]. He was also encouraged to find fur scraper he likes to help management of feet. Cues required during squats for improving range and not letting knees go fwd over toes . Pt fatigued w/carla exercise noting inc difficulty w/lifitng LEs over by end. Physical Therapy Plan Frequency and Duration Frequency of Treatment 2x/Week Duration of Treatment 3 months Plan of Care Start Date 12/01/20 Plan of Care End Date 03/02/21 Next Visit Focus/Plan Next Note Type Treatment Note Next Visit Plan cont to work on balance, challenge for hip flex, abd & ext strength
--- NOTE | 2020-12-29 10:53 | PT.OTN ---
Current Diagnoses Other chronic pain (12/29/20) Low back pain (12/29/20) Muscle weakness (generalized) (12/29/20) Difficulty in walking, not elsewhere classified (12/29/20) Unsteadiness on feet (12/29/20) Abnormal posture (12/29/20) Physical Therapy Treatment Note PT-OP-A Visit Information Start: 11/27/20 13:42 Freq: Status: Active Protocol: Document 12/29/20 09:40 [facility] (Rec: 12/29/20 10:52 [facility] [id number]) Out-Patient Physical Therapy Visit Information Visit Information Visit Type Treatment Note Visit Note 09/20 Visit Start Time 09:45 Visit Stop Time 10:30 Total Visit Minutes 45 Visit Number 7 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 In random intervals, R and LLE feels like they may give out ( mostly knee giving out sensation). Pt reports B foot pain that is gout like. pt reprots knees hurt at night with occasionally that discomfort being enough to wake him. Pt reports over the past year, inc difficulty with getting out of stair and feeling imbalance when first getting up. Pt reports LB is stiff and he is discouraged because he is trying to do his regular old PT exercises and trying tto walk but it hurts like hell to his legs, hips, knees, feet. He does stretches including bending over. He feels like his walk is a jarring walk and cannot walk on uneven ground. He has to hold a railing when stepping down and feels really uncertain. Pt reports he has been in pain since he was 22 years old. he does not want palliative care. Pt feels like he is occ feeling anticipatory pain and thinks he may have to talk to a psychiatrist. Pt got an electric bike with a low step through and he is scared to get on it. Pt reports he also can't get off the ground w/o pulling up on something. Pt can't get his leg up underneath himself and cannot lift his leg. Prior Treatments and Tests PT in past Treatment Goals Patient/Caregiver Goals Be able to walk distances & be able to walk a trail, be more confident about balance, have an analysis of gaito understand dysfunction, be able to go up/down stairs w/o feeling unstable Personal Factors Other Personal Factors That May Effect B TSA, R TKA, mult hand Therapy/Recovery surgeries, drainage of R hallux & removal of gout crystals, T11-12, L2-3, 3-4, 4 -5 lami and L4-5 fusion PT-OP-C Subjective Start: 11/27/20 13:42 Freq: Status: Active Protocol: Document 12/29/20 09:40 [facility] (Rec: 12/29/20 10:52 [facility] [id number]) OP-PT Subjective Patient Comments Patient Comments Pt reports noting some progress. He feels like he would like something to help keep track of exercises and keep him consistant PT-OP-D Balance Start: 11/27/20 13:42 Freq: Status: Active Protocol: Document 12/01/20 14:05 [facility] (Rec: 12/01/20 15:18 [facility] [id number]) Balance Tests Single Limb Standing Single Limb- Right 2sec w./lat lean & UEs uses Single Limb- Left 5 sec w./lat lean & UEs uses PT-OP-E Functional Tests Start: 11/27/20 13:42 Freq: Status: Active Protocol: Document 12/03/20 10:08 [facility] (Rec: 12/03/20 10:23 [facility] [id number]) Functional Tests Dynamic Gait Index (DGI) Score 15 Functional Gait Assessment Score 14 PT-OP-G Mobility & Gait Start: 11/27/20 13:42 Freq: Status: Active Protocol: Document 12/01/20 14:05 [facility] (Rec: 12/01/20 15:18 [facility] [id number]) OP Mobility Evaluation Bed Mobility Rolling able to roll Supine to and from Sit required assist to sit up Transfers Sit to Stand slow and very slow to start moving OP Gait Assessment Comments Gait Comments lat lean w/WB R>L PT-OP-J Posture/Palpation/Skin Start: 11/27/20 13:42 Freq: Status: Active Protocol: Document 12/01/20 14:05 [facility] (Rec: 12/01/20 15:18 [facility] [id number]) Posture Evaluation Comments Posture Comments fwd flex posture PT-OP-M Strength Start: 11/27/20 13:42 Freq: Status: Active Protocol: Document 12/01/20 14:05 [facility] (Rec: 12/01/20 15:18 [facility] [id number]) Hip Strength Hip Manual Muscle Testing Right Flexion (L2) 3 Fair Extension (S1) 2+ Poor+ Abduction 2- Poor- External Rotation 3+ Fair+ Internal Rotation 3+ Fair+ Left Flexion (L2) 3- Fair- Extension (S1) 2+ Poor+ Abduction 2+ Poor+ External Rotation 4 Good Internal Rotation 3+ Fair+ Knee Strength Knee Manual Muscle Testing Right Flexion (S2) 4+ Good+ Extension (L3) 4- Good- Left Flexion (S2) 4 Good Extension (L3) 4- Good- Ankle/Foot Strength Ankle and Foot Manual Muscle Testing Right Dorsiflexion (L4) 5 Normal Plantarflexion (S1) 5 Normal Left Dorsiflexion (L4) 5 Normal Plantarflexion (S1) 5 Normal Comments PF tested seated PT-OP-Q Treatments Start: 11/27/20 13:42 Freq: Status: Active Protocol: Document 12/29/20 09:40 [facility] (Rec: 12/29/20 10:52 [facility] [id number]) Therapeutic Exercises Standing Exercises rotation Standing Exercise Name step fwd w/reciprocal shoulder flex Side bilateral Equipment Used lvl 1 Reps/Minutes 10 ea step up Side bilateral Equipment Used 6 in no rail as pt able-lean against rail for balance prn Reps/Minutes 10 squat Standing Exercise Name sit to stand on blue foam Side bilateral Reps/Minutes 10 Comments no hands Manual Therapy Treatment Soft Tissue Mobilization thigh Body Location R med & lat quad borders Mobilization Type Sustained Pressure Body Position Supine Comments w/knee ext IT band Body Location R Mobilization Type Rolling,Strumming Comments w/quad set Joint Mobilizations patellar Joint med glide and tilt R w/quad set Neuro Re-Education Treatment Balance Activities foam pad Details step ups B Surface bermudez foam Reps/Duration 10 B hurdles Comments 1. fwd over 6 x6 2. over 6 curved to R then L x 2 ea 3. side step x2 B bosu Details standing balance PT-OP-T Assessment and Plan Start: 11/27/20 13:42 Freq: Status: Active Protocol: Document 12/29/20 09:40 [facility] (Rec: 12/29/20 10:52 [facility] [id number]) Physical Therapy Assessment Goals activities Short Term Goal (STG) Pt will be able to go up and down a curb and stairs w/o LOB w/o UE support. STG Duration 01/31/21 Senior Living Goal (LTG) Pt will be able to go for 1 mile walks with no more than 4 /10 pain. LTG Duration 03/02/21 balance Short Term Goal (STG) Pt will be able to do SLS 10 sec B STG Duration 01/31/21 Associate Director Of Biostatistics Goal (LTG) Pt will be able to score at least 25/30 on FGA to show improved balance and low risk for falls. LTG Duration 03/02/21 strength Short Term Goal (STG) Pt will be indep w/ HEP STG Duration 01/11/21 Associate Director Of Biostatistics Goal (LTG) Pt will score at least 1 full MMT grade higher on all LE MMT in order to improve pt joint stability and dec pain and improve strength to improve pt 's ease w/activities. LTG Duration 03/02/21 sit to stand Short Term Goal (STG) Pt will improve 5x sit to stand test to no greater than 15 sec (norm 12 sec) to show improved functional ability. STG Duration 01/31/21 Senior Living Goal (LTG) Pt will improve 30 sec sit to stand score to 12x to show improved balance and LE strength LTG Duration 03/02/21 6 min walk Short Term Goal (STG) Pt will be able to complete 6 min walk test without requring a rest break STG Duration 01/12/21 Senior Living Goal (LTG) Pt waill be able to walk 1171ft with no more than 2/10 pain after to show more age related norms for functional abiltiy in gait. LTG Duration 03/03/21 Assessment Summary Assessment Exercise log created for pt to help w/keeping track of exercises. He was encouraged to do a 2nd walk in his day d/ t being SOB and mm fatigued after his current walk w/o feeling like he can add more. He was challenged by unstable surfaces w/exercises comprleted today and had difficulty w/reciprocation Physical Therapy Plan Frequency and Duration Frequency of Treatment 2x/Week Duration of Treatment 3 months Plan of Care Start Date 12/01/20 Plan of Care End Date 03/02/21 Next Visit Focus/Plan Next Note Type Treatment Note Next Visit Plan cont to work on balance, challenge for hip flex, abd & ext strength
--- NOTE | 2020-12-31 11:10 | PT.OTN ---
Current Diagnoses Other chronic pain (12/31/20) Low back pain (12/31/20) Muscle weakness (generalized) (12/31/20) Difficulty in walking, not elsewhere classified (12/31/20) Unsteadiness on feet (12/31/20) Abnormal posture (12/31/20) Physical Therapy Treatment Note PT-OP-A Visit Information Start: 11/27/20 13:42 Freq: Status: Active Protocol: Document 12/31/20 09:49 [facility] (Rec: 12/31/20 11:10 [facility] [id number]) Out-Patient Physical Therapy Visit Information Visit Information Visit Type Treatment Note Visit Note 10/21 Visit Start Time 09:51 Visit Stop Time 10:32 Total Visit Minutes 41 Visit Number 8 Number of DIETARY MANAGER Visits 0 PT-OP-B Current Condition Start: 11/27/20 13:42 Freq: Status: Active Protocol: Document 12/01/20 14:05 [facility] (Rec: 12/01/20 15:18 [facility] [id number]) Current Condition History of Current Condition Onset Date worse over the past year Current Complaints balance, gait History of Current Condition Pt reports increasing difficulty with walking over uneven surfaces and has trouble w/stairs and curbs. In random intervals, R and LLE feels like they may give out ( mostly knee giving out sensation). Pt reports B foot pain that is gout like. pt reprots knees hurt at night with occasionally that discomfort being enough to wake him. Pt reports over the past year, inc difficulty with getting out of stair and feeling imbalance when first getting up. Pt reports LB is stiff and he is discouraged because he is trying to do his regular old PT exercises and trying tto walk but it hurts like hell to his legs, hips, knees, feet. He does stretches including bending over. He feels like his walk is a jarring walk and cannot walk on uneven ground. He has to hold a railing when stepping down and feels really uncertain. Pt reports he has been in pain since he was 22 years old. he does not want palliative care. Pt feels like he is occ feeling anticipatory pain and thinks he may have to talk to a psychiatrist. Pt got an electric bike with a low step through and he is scared to get on it. Pt reports he also can't get off the ground w/o pulling up on something. Pt can't get his leg up underneath himself and cannot lift his leg. Prior Treatments and Tests PT in past Treatment Goals Patient/Caregiver Goals Be able to walk distances & be able to walk a trail, be more confident about balance, have an analysis of gaito understand dysfunction, be able to go up/down stairs w/o feeling unstable Personal Factors Other Personal Factors That May Effect B TSA, R TKA, mult hand Therapy/Recovery surgeries, drainage of R hallux & removal of gout crystals, T11-12, L2-3, 3-4, 4 -5 lami and L4-5 fusion PT-OP-C Subjective Start: 11/27/20 13:42 Freq: Status: Active Protocol: Document 12/31/20 09:49 [facility] (Rec: 12/31/20 11:10 [facility] [id number]) OP-PT Subjective Patient Comments Patient Comments Pt reports he likes his new watch because it monitors a lot including HR, distance, time, speed, hills PT-OP-D Balance Start: 11/27/20 13:42 Freq: Status: Active Protocol: Document 12/01/20 14:05 [facility] (Rec: 12/01/20 15:18 [facility] [id number]) Balance Tests Single Limb Standing Single Limb- Right 2sec w./lat lean & UEs uses Single Limb- Left 5 sec w./lat lean & UEs uses PT-OP-E Functional Tests Start: 11/27/20 13:42 Freq: Status: Active Protocol: Document 12/03/20 10:08 [facility] (Rec: 12/03/20 10:23 [facility] [id number]) Functional Tests Dynamic Gait Index (DGI) Score 15 Functional Gait Assessment Score 14 PT-OP-G Mobility & Gait Start: 11/27/20 13:42 Freq: Status: Active Protocol: Document 12/01/20 14:05 [facility] (Rec: 12/01/20 15:18 [facility] [id number]) OP Mobility Evaluation Bed Mobility Rolling able to roll Supine to and from Sit required assist to sit up Transfers Sit to Stand slow and very slow to start moving OP Gait Assessment Comments Gait Comments lat lean w/WB R>L PT-OP-J Posture/Palpation/Skin Start: 11/27/20 13:42 Freq: Status: Active Protocol: Document 12/01/20 14:05 [facility] (Rec: 12/01/20 15:18 [facility] [id number]) Posture Evaluation Comments Posture Comments fwd flex posture PT-OP-M Strength Start: 11/27/20 13:42 Freq: Status: Active Protocol: Document 12/01/20 14:05 [facility] (Rec: 12/01/20 15:18 [facility] [id number]) Hip Strength Hip Manual Muscle Testing Right Flexion (L2) 3 Fair Extension (S1) 2+ Poor+ Abduction 2- Poor- External Rotation 3+ Fair+ Internal Rotation 3+ Fair+ Left Flexion (L2) 3- Fair- Extension (S1) 2+ Poor+ Abduction 2+ Poor+ External Rotation 4 Good Internal Rotation 3+ Fair+ Knee Strength Knee Manual Muscle Testing Right Flexion (S2) 4+ Good+ Extension (L3) 4- Good- Left Flexion (S2) 4 Good Extension (L3) 4- Good- Ankle/Foot Strength Ankle and Foot Manual Muscle Testing Right Dorsiflexion (L4) 5 Normal Plantarflexion (S1) 5 Normal Left Dorsiflexion (L4) 5 Normal Plantarflexion (S1) 5 Normal Comments PF tested seated PT-OP-Q Treatments Start: 11/27/20 13:42 Freq: Status: Active Protocol: Document 12/31/20 09:49 [facility] (Rec: 12/31/20 11:10 [facility] [id number]) Therapeutic Exercises Standing Exercises heel raises Side bilateral Reps/Minutes 10 Hip Ext/Abd diagonial Standing Exercise Name cues to keep foot close to the ground Side bilateral Reps/Minutes 10 step up Side bilateral Equipment Used 6 in no rail as pt able-lean against rail for balance prn Reps/Minutes 10 sidestep Standing Exercise Name step up and over Side bilateral Equipment Used 4 in step Reps/Minutes 10 B Manual Therapy Treatment Soft Tissue Mobilization adductors Body Location L Mobilization Type Rolling,Strumming Intensity/Depth Moderate Body Position Hooklying Comments w/hip IR/ER Joint Mobilizations hip Joint L Direction abd FM Comments manual facilitaiton of abd in end range after mob Neuro Re-Education Treatment Balance Activities foam pad Surface 4in step w/blue foam Reps/Duration 10 B hurdles Comments 1. fwd over 6 x6 2. over 6 curved to R then L x 2 ea 3. side step x2 B bosu Comments 1.standing DL balance 2. side<>side wt shift 3. fwd/back wt shifts PT-OP-T Assessment and Plan Start: 11/27/20 13:42 Freq: Status: Active Protocol: Document 12/31/20 09:49 [facility] (Rec: 12/31/20 11:10 [facility] [id number]) Physical Therapy Assessment Goals activities Short Term Goal (STG) Pt will be able to go up and down a curb and stairs w/o LOB w/o UE support. STG Duration 01/31/21 Penitentiary Goal (LTG) Pt will be able to go for 1 mile walks with no more than 4 /10 pain. LTG Duration 03/02/21 balance Short Term Goal (STG) Pt will be able to do SLS 10 sec B STG Duration 01/31/21 Medical Technologist Prn Goal (LTG) Pt will be able to score at least 25/30 on FGA to show improved balance and low risk for falls. LTG Duration 03/02/21 strength Short Term Goal (STG) Pt will be indep w/ HEP STG Duration 01/11/21 Penitentiary Goal (LTG) Pt will score at least 1 full MMT grade higher on all LE MMT in order to improve pt joint stability and dec pain and improve strength to improve pt 's ease w/activities. LTG Duration 03/02/21 sit to stand Short Term Goal (STG) Pt will improve 5x sit to stand test to no greater than 15 sec (norm 12 sec) to show improved functional ability. STG Duration 01/31/21 Penitentiary Goal (LTG) Pt will improve 30 sec sit to stand score to 12x to show improved balance and LE strength LTG Duration 03/02/21 6 min walk Short Term Goal (STG) Pt will be able to complete 6 min walk test without requring a rest break STG Duration 01/12/21 Penitentiary Goal (LTG) Pt waill be able to walk 1171ft with no more than 2/10 pain after to show more age related norms for functional abiltiy in gait. LTG Duration 03/03/21 Assessment Summary Assessment Pt had imrpoved abd w/L hip after manual treatment. He did show improved stability during balance exercises today but pt does still note difficulty with these. He was able to progress to higher step up w/foam. Physical Therapy Plan Frequency and Duration Frequency of Treatment 2x/Week Duration of Treatment 3 months Plan of Care Start Date 12/01/20 Plan of Care End Date 03/02/21 Next Visit Focus/Plan Next Note Type Treatment Note Next Visit Plan cont to work on balance, challenge for hip flex, abd & ext strength
--- NOTE | 2021-01-05 12:19 | PT.OTN ---
Current Diagnoses Other chronic pain (01/05/21) Low back pain (01/05/21) Muscle weakness (generalized) (01/05/21) Difficulty in walking, not elsewhere classified (01/05/21) Unsteadiness on feet (01/05/21) Abnormal posture (01/05/21) Physical Therapy Treatment Note PT-OP-A Visit Information Start: 11/27/20 13:42 Freq: Status: Active Protocol: Document 01/05/21 10:32 [facility] (Rec: 01/05/21 12:18 [facility] [id number]) Out-Patient Physical Therapy Visit Information Visit Information Visit Type Treatment Note Visit Note 11/21 Visit Start Time 09:43 Visit Stop Time 10:28 Total Visit Minutes 45 Visit Number 9 Number of SUPERVISOR KNITTING Visits 0 PT-OP-B Current Condition Start: 11/27/20 13:42 Freq: Status: Active Protocol: Document 12/01/20 14:05 [facility] (Rec: 12/01/20 15:18 [facility] [id number]) Current Condition History of Current Condition Onset Date worse over the past year Current Complaints balance, gait History of Current Condition Pt reports increasing difficulty with walking over uneven surfaces and has trouble w/stairs and curbs. In random intervals, R and LLE feels like they may give out ( mostly knee giving out sensation). Pt reports B foot pain that is gout like. pt reprots knees hurt at night with occasionally that discomfort being enough to wake him. Pt reports over the past year, inc difficulty with getting out of stair and feeling imbalance when first getting up. Pt reports LB is stiff and he is discouraged because he is trying to do his regular old PT exercises and trying tto walk but it hurts like hell to his legs, hips, knees, feet. He does stretches including bending over. He feels like his walk is a jarring walk and cannot walk on uneven ground. He has to hold a railing when stepping down and feels really uncertain. Pt reports he has been in pain since he was 22 years old. he does not want palliative care. Pt feels like he is occ feeling anticipatory pain and thinks he may have to talk to a psychiatrist. Pt got an electric bike with a low step through and he is scared to get on it. Pt reports he also can't get off the ground w/o pulling up on something. Pt can't get his leg up underneath himself and cannot lift his leg. Prior Treatments and Tests PT in past Treatment Goals Patient/Caregiver Goals Be able to walk distances & be able to walk a trail, be more confident about balance, have an analysis of gaito understand dysfunction, be able to go up/down stairs w/o feeling unstable Personal Factors Other Personal Factors That May Effect B TSA, R TKA, mult hand Therapy/Recovery surgeries, drainage of R hallux & removal of gout crystals, T11-12, L2-3, 3-4, 4 -5 lami and L4-5 fusion PT-OP-C Subjective Start: 11/27/20 13:42 Freq: Status: Active Protocol: Document 01/05/21 10:32 [facility] (Rec: 01/05/21 12:18 [facility] [id number]) OP-PT Subjective Patient Comments Patient Comments Pt reports he thinks he pushed to hard when stretching wed at home because he was sore at HS insertion to post thigh after he finished (R). He tried to walk and he thinks that irritated his knee d/t his gait change Patient Reported Progress Worse PT-OP-D Balance Start: 11/27/20 13:42 Freq: Status: Active Protocol: Document 12/01/20 14:05 [facility] (Rec: 12/01/20 15:18 [facility] [id number]) Balance Tests Single Limb Standing Single Limb- Right 2sec w./lat lean & UEs uses Single Limb- Left 5 sec w./lat lean & UEs uses PT-OP-E Functional Tests Start: 11/27/20 13:42 Freq: Status: Active Protocol: Document 12/03/20 10:08 [facility] (Rec: 12/03/20 10:23 [facility] [id number]) Functional Tests Dynamic Gait Index (DGI) Score 15 Functional Gait Assessment Score 14 PT-OP-G Mobility & Gait Start: 11/27/20 13:42 Freq: Status: Active Protocol: Document 12/01/20 14:05 [facility] (Rec: 12/01/20 15:18 [facility] [id number]) OP Mobility Evaluation Bed Mobility Rolling able to roll Supine to and from Sit required assist to sit up Transfers Sit to Stand slow and very slow to start moving OP Gait Assessment Comments Gait Comments lat lean w/WB R>L PT-OP-J Posture/Palpation/Skin Start: 11/27/20 13:42 Freq: Status: Active Protocol: Document 12/01/20 14:05 [facility] (Rec: 12/01/20 15:18 [facility] [id number]) Posture Evaluation Comments Posture Comments fwd flex posture PT-OP-M Strength Start: 11/27/20 13:42 Freq: Status: Active Protocol: Document 12/01/20 14:05 [facility] (Rec: 12/01/20 15:18 [facility] [id number]) Hip Strength Hip Manual Muscle Testing Right Flexion (L2) 3 Fair Extension (S1) 2+ Poor+ Abduction 2- Poor- External Rotation 3+ Fair+ Internal Rotation 3+ Fair+ Left Flexion (L2) 3- Fair- Extension (S1) 2+ Poor+ Abduction 2+ Poor+ External Rotation 4 Good Internal Rotation 3+ Fair+ Knee Strength Knee Manual Muscle Testing Right Flexion (S2) 4+ Good+ Extension (L3) 4- Good- Left Flexion (S2) 4 Good Extension (L3) 4- Good- Ankle/Foot Strength Ankle and Foot Manual Muscle Testing Right Dorsiflexion (L4) 5 Normal Plantarflexion (S1) 5 Normal Left Dorsiflexion (L4) 5 Normal Plantarflexion (S1) 5 Normal Comments PF tested seated PT-OP-Q Treatments Start: 11/27/20 13:42 Freq: Status: Active Protocol: Document 01/05/21 10:32 [facility] (Rec: 01/05/21 12:18 [facility] [id number]) Therapeutic Exercises Sitting Exercises stretches Sitting Exercise Name sciatic n glide Side right Reps/Minutes 10 Manual Therapy Treatment Soft Tissue Mobilization TFL Body Location TFL R Mobilization Type Sustained Pressure Intensity/Depth Moderate Body Position Supine Comments with hip IR gluteals Body Location R glutes & piriformis Mobilization Type Sustained Pressure Intensity/Depth Moderate Body Position Sidelying HS Body Location HS R Mobilization Type Rolling,Sustained Pressure Intensity/Depth Moderate Body Position Sidelying Comments w/ knee ext Joint Mobilizations innominate Joint R abd FM hip Joint R Direction abd, ER & IR FM Self-Care/Home Management Treatment Education Other Education edu to ice & use tennis ball in buttocks PT-OP-T Assessment and Plan Start: 11/27/20 13:42 Freq: Status: Active Protocol: Document 01/05/21 10:32 [facility] (Rec: 01/05/21 12:18 [facility] [id number]) Physical Therapy Assessment Goals activities Short Term Goal (STG) Pt will be able to go up and down a curb and stairs w/o LOB w/o UE support. STG Duration 01/31/21 Call Center Professional Goal (LTG) Pt will be able to go for 1 mile walks with no more than 4 /10 pain. LTG Duration 03/02/21 balance Short Term Goal (STG) Pt will be able to do SLS 10 sec B STG Duration 01/31/21 Snf Goal (LTG) Pt will be able to score at least 25/30 on FGA to show improved balance and low risk for falls. LTG Duration 03/02/21 strength Short Term Goal (STG) Pt will be indep w/ HEP STG Duration 01/11/21 Snf Goal (LTG) Pt will score at least 1 full MMT grade higher on all LE MMT in order to improve pt joint stability and dec pain and improve strength to improve pt 's ease w/activities. LTG Duration 03/02/21 sit to stand Short Term Goal (STG) Pt will improve 5x sit to stand test to no greater than 15 sec (norm 12 sec) to show improved functional ability. STG Duration 01/31/21 Snf Goal (LTG) Pt will improve 30 sec sit to stand score to 12x to show improved balance and LE strength LTG Duration 03/02/21 6 min walk Short Term Goal (STG) Pt will be able to complete 6 min walk test without requring a rest break STG Duration 01/12/21 Snf Goal (LTG) Pt waill be able to walk 1171ft with no more than 2/10 pain after to show more age related norms for functional abiltiy in gait. LTG Duration 03/03/21 Assessment Summary Assessment Pt had imrpoved abd and hip rotations after manual treatment. He had significant tightness wehen he presented to session today that was likely d/t his inc in pain after pushing his stretching too much. he was encouraged not to push as much on stretches and only gentle stretcehs should be felt. Physical Therapy Plan Frequency and Duration Frequency of Treatment 2x/Week Duration of Treatment 3 months Plan of Care Start Date 12/01/20 Plan of Care End Date 03/02/21 Next Visit Focus/Plan Next Note Type Progress Note Next Visit Plan cont to work on balance, challenge for hip flex, abd & ext strength
--- NOTE | 2021-01-07 11:47 | PT.OTN ---
Current Diagnoses Other chronic pain (01/07/21) Low back pain (01/07/21) Muscle weakness (generalized) (01/07/21) Difficulty in walking, not elsewhere classified (01/07/21) Unsteadiness on feet (01/07/21) Abnormal posture (01/07/21) Physical Therapy Treatment Note PT-OP-A Visit Information Start: 11/27/20 13:42 Freq: Status: Active Protocol: Document 01/07/21 09:51 [facility] (Rec: 01/07/21 11:47 [facility] [id number]) Out-Patient Physical Therapy Visit Information Visit Information Visit Type Progress Note Visit Note 1/0 Visit Start Time 09:51 Visit Stop Time 10:30 Total Visit Minutes 39 Visit Number 10 Number of SUPERVISOR TELEPHONE ANSWERING SERVICE Visits 0 PT-OP-B Current Condition Start: 11/27/20 13:42 Freq: Status: Active Protocol: Document 12/01/20 14:05 [facility] (Rec: 12/01/20 15:18 [facility] [id number]) Current Condition History of Current Condition Onset Date worse over the past year Current Complaints balance, gait History of Current Condition Pt reports increasing difficulty with walking over uneven surfaces and has trouble w/stairs and curbs. In random intervals, R and LLE feels like they may give out ( mostly knee giving out sensation). Pt reports B foot pain that is gout like. pt reprots knees hurt at night with occasionally that discomfort being enough to wake him. Pt reports over the past year, inc difficulty with getting out of stair and feeling imbalance when first getting up. Pt reports LB is stiff and he is discouraged because he is trying to do his regular old PT exercises and trying tto walk but it hurts like hell to his legs, hips, knees, feet. He does stretches including bending over. He feels like his walk is a jarring walk and cannot walk on uneven ground. He has to hold a railing when stepping down and feels really uncertain. Pt reports he has been in pain since he was 22 years old. he does not want palliative care. Pt feels like he is occ feeling anticipatory pain and thinks he may have to talk to a psychiatrist. Pt got an electric bike with a low step through and he is scared to get on it. Pt reports he also can't get off the ground w/o pulling up on something. Pt can't get his leg up underneath himself and cannot lift his leg. Prior Treatments and Tests PT in past Treatment Goals Patient/Caregiver Goals Be able to walk distances & be able to walk a trail, be more confident about balance, have an analysis of gaito understand dysfunction, be able to go up/down stairs w/o feeling unstable Personal Factors Other Personal Factors That May Effect B TSA, R TKA, mult hand Therapy/Recovery surgeries, drainage of R hallux & removal of gout crystals, T11-12, L2-3, 3-4, 4 -5 lami and L4-5 fusion PT-OP-C Subjective Start: 11/27/20 13:42 Freq: Status: Active Protocol: Document 01/07/21 09:51 [facility] (Rec: 01/07/21 11:47 [facility] [id number]) OP-PT Subjective Patient Comments Patient Comments Pt reports after tuesday's session he felt like he really locked up. He took tylenol and ibuprofen. [place]Urning, standing on RLE, it is very painful in knee and hip. Standing he is feeling okay PT-OP-D Balance Start: 11/27/20 13:42 Freq: Status: Active Protocol: Document 12/01/20 14:05 [facility] (Rec: 12/01/20 15:18 [facility] [id number]) Balance Tests Single Limb Standing Single Limb- Right 2sec w./lat lean & UEs uses Single Limb- Left 5 sec w./lat lean & UEs uses PT-OP-E Functional Tests Start: 11/27/20 13:42 Freq: Status: Active Protocol: Document 01/07/21 09:51 [facility] (Rec: 01/07/21 11:47 [facility] [id number]) Functional Tests 6 Minute Walk Test Distance 1075ft 30 Second Sit to Stand Test Score 8x Five Times Sit to Stand Test Score 18 sec PT-OP-G Mobility & Gait Start: 11/27/20 13:42 Freq: Status: Active Protocol: Document 12/01/20 14:05 [facility] (Rec: 12/01/20 15:18 [facility] [id number]) OP Mobility Evaluation Bed Mobility Rolling able to roll Supine to and from Sit required assist to sit up Transfers Sit to Stand slow and very slow to start moving OP Gait Assessment Comments Gait Comments lat lean w/WB R>L PT-OP-J Posture/Palpation/Skin Start: 11/27/20 13:42 Freq: Status: Active Protocol: Document 12/01/20 14:05 [facility] (Rec: 12/01/20 15:18 [facility] [id number]) Posture Evaluation Comments Posture Comments fwd flex posture PT-OP-M Strength Start: 11/27/20 13:42 Freq: Status: Active Protocol: Document 01/07/21 09:51 [facility] (Rec: 01/07/21 11:47 [facility] [id number]) Hip Strength Hip Manual Muscle Testing Right Flexion (L2) 3- Fair- Extension (S1) 3- Fair- Abduction 3- Fair- External Rotation 4- Good- Internal Rotation 3+ Fair+ Comments pain in post knee w/hip ext; pain in hip w/flex & IR Left Flexion (L2) 3 Fair Extension (S1) 3- Fair- Abduction 3- Fair- External Rotation 4 Good Internal Rotation 4 Good Knee Strength Knee Manual Muscle Testing Right Flexion (S2) 5 Normal Extension (L3) 4+ Good+ Left Flexion (S2) 4+ Good+ Extension (L3) 4+ Good+ Ankle/Foot Strength Ankle and Foot Manual Muscle Testing Right Dorsiflexion (L4) 5 Normal Plantarflexion (S1) 5 Normal Left Dorsiflexion (L4) 5 Normal Plantarflexion (S1) 5 Normal Comments PF tested seated PT-OP-Q Treatments Start: 11/27/20 13:42 Freq: Status: Active Protocol: Document 01/07/21 09:51 [facility] (Rec: 01/07/21 11:47 [facility] [id number]) Therapeutic Exercises Standing Exercises reciprocation Standing Exercise Name alt step fwd w/shoulder flex Side bilateral Reps/Minutes 12 rotation Standing Exercise Name staggered stance w/alt UE flex /ext w/rot trunk Side bilateral Equipment Used Lvl 1 Reps/Minutes 15 squat Standing Exercise Name mini squat Side bilateral Reps/Minutes 10 Comments at rail Self-Care/Home Management Treatment Education Other Education discussion of considering seeing a cloth worker to work on better shoe set up to help w/ dec pain. Edu to ice for pain PT-OP-T Assessment and Plan Start: 11/27/20 13:42 Freq: Status: Active Protocol: Document 01/07/21 09:51 [facility] (Rec: 01/07/21 11:47 [facility] [id number]) Physical Therapy Assessment Goals activities Short Term Goal (STG) Pt will be able to go up and down a curb and stairs w/o LOB w/o UE support. 01/07-pt reports improved STG Duration 01/31/21 Seismometer Operator Goal (LTG) Pt will be able to go for 1 mile walks with no more than 4 /10 pain. LTG Duration 03/02/21 balance Short Term Goal (STG) Pt will be able to do SLS 10 sec B 01/07-L 15 sec, R 2 sec STG Duration 01/31/21 Intermediate Goal (LTG) Pt will be able to score at least 25/30 on FGA to show improved balance and low risk for falls. LTG Duration 03/02/21 strength Short Term Goal (STG) Pt will be indep w/ HEP STG Duration achieved progressing as able Intermediate Goal (LTG) Pt will score at least 1 full MMT grade higher on all LE MMT in order to improve pt joint stability and dec pain and improve strength to improve pt 's ease w/activities. 01/07-improved LTG Duration 03/02/21 sit to stand Short Term Goal (STG) Pt will improve 5x sit to stand test to no greater than 15 sec (norm 12 sec) to show improved functional ability. 01/07-1 sec improvement STG Duration 01/31/21 Intermediate Goal (LTG) Pt will improve 30 sec sit to stand score to 12x to show improved balance and LE strength LTG Duration 03/02/21 6 min walk Short Term Goal (STG) Pt will be able to complete 6 min walk test without requring a rest break STG Duration achieved Seismometer Operator Goal (LTG) Pt waill be able to walk 1171ft with no more than 2/10 pain after to show more age related norms for functional abiltiy in gait. 01/07-improved to 1070ft LTG Duration 03/03/21 Assessment Summary Assessment Despite pt's set back since last tuesday, he is still showing significant improvement in balance, strength, functional ability and gait with imrpovements in all testing today. he would beneift from cont PT to cont to progress his functional gains. Physical Therapy Plan Frequency and Duration Frequency of Treatment 2x/Week Duration of Treatment 3 months Plan of Care Start Date 12/01/20 Plan of Care End Date 03/02/21 Therapeutic Interventions Therapeutic Interventions Balance Training,Home Exercise Program,Manual Therapy, Patient/Caregiver Education, Self-Care/Home Management,Soft Tissue Mobilization, Therapeutic Activities, Therapeutic Exercises Next Visit Focus/Plan Next Note Type Treatment Note Next Visit Plan cont to work on balance, challenge for hip flex, abd & ext strength
--- NOTE | 2021-01-12 11:11 | PT.OTN ---
Current Diagnoses Other chronic pain (01/12/21) Low back pain (01/12/21) Muscle weakness (generalized) (01/12/21) Difficulty in walking, not elsewhere classified (01/12/21) Unsteadiness on feet (01/12/21) Abnormal posture (01/12/21) Physical Therapy Treatment Note PT-OP-A Visit Information Start: 11/27/20 13:42 Freq: Status: Active Protocol: Document 01/12/21 11:01 [facility] (Rec: 01/12/21 11:11 [facility] [id number]) Out-Patient Physical Therapy Visit Information Visit Information Visit Type Treatment Note Visit Note 04/23 Visit Start Time 09:50 Visit Stop Time 10:30 Total Visit Minutes 40 Visit Number 11 Number of GASTROENTEROLOGIST Visits 0 PT-OP-B Current Condition Start: 11/27/20 13:42 Freq: Status: Active Protocol: Document 12/01/20 14:05 [facility] (Rec: 12/01/20 15:18 [facility] [id number]) Current Condition History of Current Condition Onset Date worse over the past year Current Complaints balance, gait History of Current Condition Pt reports increasing difficulty with walking over uneven surfaces and has trouble w/stairs and curbs. In random intervals, R and LLE feels like they may give out ( mostly knee giving out sensation). Pt reports B foot pain that is gout like. pt reprots knees hurt at night with occasionally that discomfort being enough to wake him. Pt reports over the past year, inc difficulty with getting out of stair and feeling imbalance when first getting up. Pt reports LB is stiff and he is discouraged because he is trying to do his regular old PT exercises and trying tto walk but it hurts like hell to his legs, hips, knees, feet. He does stretches including bending over. He feels like his walk is a jarring walk and cannot walk on uneven ground. He has to hold a railing when stepping down and feels really uncertain. Pt reports he has been in pain since he was 22 years old. he does not want palliative care. Pt feels like he is occ feeling anticipatory pain and thinks he may have to talk to a psychiatrist. Pt got an electric bike with a low step through and he is scared to get on it. Pt reports he also can't get off the ground w/o pulling up on something. Pt can't get his leg up underneath himself and cannot lift his leg. Prior Treatments and Tests PT in past Treatment Goals Patient/Caregiver Goals Be able to walk distances & be able to walk a trail, be more confident about balance, have an analysis of gaito understand dysfunction, be able to go up/down stairs w/o feeling unstable Personal Factors Other Personal Factors That May Effect B TSA, R TKA, mult hand Therapy/Recovery surgeries, drainage of R hallux & removal of gout crystals, T11-12, L2-3, 3-4, 4 -5 lami and L4-5 fusion PT-OP-C Subjective Start: 11/27/20 13:42 Freq: Status: Active Protocol: Document 01/12/21 11:01 [facility] (Rec: 01/12/21 11:11 [facility] [id number]) OP-PT Subjective Patient Comments Patient Comments pt reports it was a rough weekend d/t pain. Notes he iced his post leg yesterdaya nd it helped. PT-OP-D Balance Start: 11/27/20 13:42 Freq: Status: Active Protocol: Document 12/01/20 14:05 [facility] (Rec: 12/01/20 15:18 [facility] [id number]) Balance Tests Single Limb Standing Single Limb- Right 2sec w./lat lean & UEs uses Single Limb- Left 5 sec w./lat lean & UEs uses PT-OP-E Functional Tests Start: 11/27/20 13:42 Freq: Status: Active Protocol: Document 01/07/21 09:51 [facility] (Rec: 01/07/21 11:47 [facility] [id number]) Functional Tests 6 Minute Walk Test Distance 1075ft 30 Second Sit to Stand Test Score 8x Five Times Sit to Stand Test Score 18 sec PT-OP-G Mobility & Gait Start: 11/27/20 13:42 Freq: Status: Active Protocol: Document 12/01/20 14:05 [facility] (Rec: 12/01/20 15:18 [facility] [id number]) OP Mobility Evaluation Bed Mobility Rolling able to roll Supine to and from Sit required assist to sit up Transfers Sit to Stand slow and very slow to start moving OP Gait Assessment Comments Gait Comments lat lean w/WB R>L PT-OP-J Posture/Palpation/Skin Start: 11/27/20 13:42 Freq: Status: Active Protocol: Document 12/01/20 14:05 [facility] (Rec: 12/01/20 15:18 [facility] [id number]) Posture Evaluation Comments Posture Comments fwd flex posture PT-OP-M Strength Start: 11/27/20 13:42 Freq: Status: Active Protocol: Document 01/07/21 09:51 [facility] (Rec: 01/07/21 11:47 [facility] [id number]) Hip Strength Hip Manual Muscle Testing Right Flexion (L2) 3- Fair- Extension (S1) 3- Fair- Abduction 3- Fair- External Rotation 4- Good- Internal Rotation 3+ Fair+ Comments pain in post knee w/hip ext; pain in hip w/flex & IR Left Flexion (L2) 3 Fair Extension (S1) 3- Fair- Abduction 3- Fair- External Rotation 4 Good Internal Rotation 4 Good Knee Strength Knee Manual Muscle Testing Right Flexion (S2) 5 Normal Extension (L3) 4+ Good+ Left Flexion (S2) 4+ Good+ Extension (L3) 4+ Good+ Ankle/Foot Strength Ankle and Foot Manual Muscle Testing Right Dorsiflexion (L4) 5 Normal Plantarflexion (S1) 5 Normal Left Dorsiflexion (L4) 5 Normal Plantarflexion (S1) 5 Normal Comments PF tested seated PT-OP-Q Treatments Start: 11/27/20 13:42 Freq: Status: Active Protocol: Document 01/12/21 11:01 [facility] (Rec: 01/12/21 11:11 [facility] [id number]) Gym Equipment Therapeutic Ball seated Ball Size/Color 75cm Body Position Sitting Comments 1. pelvic tilts x20 2. pelvic circles x20 B 3. attempted marches and kicks but painful to R hip flexors Therapeutic Exercises Supine Exercises pelvic tilt Reps/Minutes 2x10 Comments cues for full range LTR Supine Exercise Name max cues for use of core Side bilateral Reps/Minutes 3x10 Comments mult reps to work on different movement patterns Standing Exercises Hip Ext/Abd diagonial Standing Exercise Name cues to keep foot close to the ground Side bilateral Reps/Minutes 2x15 Comments cues for comfortable range Self-Care/Home Management Treatment Education Other Education edu re: benefits of pool therapy and how exercise in the pool would be less impact. discussed possible gym membership at pool and access to equipment there so he could start working out more often. Discussed 1x/week pool and 1x on land PT-OP-T Assessment and Plan Start: 11/27/20 13:42 Freq: Status: Active Protocol: Document 01/12/21 11:01 [facility] (Rec: 01/12/21 11:11 [facility] [id number]) Physical Therapy Assessment Goals activities Short Term Goal (STG) Pt will be able to go up and down a curb and stairs w/o LOB w/o UE support. 01/07-pt reports improved STG Duration 01/31/21 Tool Room Lathe Operator Goal (LTG) Pt will be able to go for 1 mile walks with no more than 4 /10 pain. LTG Duration 03/02/21 balance Short Term Goal (STG) Pt will be able to do SLS 10 sec B 01/07-L 15 sec, R 2 sec STG Duration 01/31/21 [facility] Goal (LTG) Pt will be able to score at least 25/30 on FGA to show improved balance and low risk for falls. LTG Duration 03/02/21 strength Short Term Goal (STG) Pt will be indep w/ HEP STG Duration achieved progressing as able Tool Room Lathe Operator Goal (LTG) Pt will score at least 1 full MMT grade higher on all LE MMT in order to improve pt joint stability and dec pain and improve strength to improve pt 's ease w/activities. 01/07-improved LTG Duration 03/02/21 sit to stand Short Term Goal (STG) Pt will improve 5x sit to stand test to no greater than 15 sec (norm 12 sec) to show improved functional ability. 01/07-1 sec improvement STG Duration 01/31/21 Mcc Goal (LTG) Pt will improve 30 sec sit to stand score to 12x to show improved balance and LE strength LTG Duration 03/02/21 6 min walk Short Term Goal (STG) Pt will be able to complete 6 min walk test without requring a rest break STG Duration achieved Tool Room Lathe Operator Goal (LTG) Pt waill be able to walk 1171ft with no more than 2/10 pain after to show more age related norms for functional abiltiy in gait. 01/07-improved to 1070ft LTG Duration 03/03/21 Assessment Summary Assessment Pt had significant difficulty w/ability to move pelvis and LB w/exercises today. He has dec ability to activate core and required max cueing and mult reps to get improved performance w/exercises Physical Therapy Plan Frequency and Duration Frequency of Treatment 2x/Week Duration of Treatment 3 months Plan of Care Start Date 12/01/20 Plan of Care End Date 03/02/21 Next Visit Focus/Plan Next Note Type Treatment Note Next Visit Plan cont to work on balance, challenge for hip flex, abd & ext strength along w/ activation of core
--- NOTE | 2021-01-14 09:52 | PT.OTN ---
Current Diagnoses Other chronic pain (01/19/21) Low back pain (01/19/21) Muscle weakness (generalized) (01/19/21) Difficulty in walking, not elsewhere classified (01/19/21) Unsteadiness on feet (01/19/21) Abnormal posture (01/19/21) Physical Therapy Treatment Note PT-OP-A Visit Information Start: 11/27/20 13:42 Freq: Status: Active Protocol: Document 01/14/21 14:10 [facility] (Rec: 01/14/21 14:19 [facility] [id number]) Out-Patient Physical Therapy Visit Information Visit Information Visit Type Treatment Note Visit Start Time 11:45 Visit Stop Time 12:31 Total Visit Minutes 46 Visit Number 12 PT-OP-B Current Condition Start: 11/27/20 13:42 Freq: Status: Active Protocol: Document 12/01/20 14:05 [facility] (Rec: 12/01/20 15:18 [facility] [id number]) Current Condition History of Current Condition Onset Date worse over the past year Current Complaints balance, gait History of Current Condition Pt reports increasing difficulty with walking over uneven surfaces and has trouble w/stairs and curbs. In random intervals, R and LLE feels like they may give out ( mostly knee giving out sensation). Pt reports B foot pain that is gout like. pt reprots knees hurt at night with occasionally that discomfort being enough to wake him. Pt reports over the past year, inc difficulty with getting out of stair and feeling imbalance when first getting up. Pt reports LB is stiff and he is discouraged because he is trying to do his regular old PT exercises and trying tto walk but it hurts like hell to his legs, hips, knees, feet. He does stretches including bending over. He feels like his walk is a jarring walk and cannot walk on uneven ground. He has to hold a railing when stepping down and feels really uncertain. Pt reports he has been in pain since he was 22 years old. he does not want palliative care. Pt feels like he is occ feeling anticipatory pain and thinks he may have to talk to a psychiatrist. Pt got an electric bike with a low step through and he is scared to get on it. Pt reports he also can't get off the ground w/o pulling up on something. Pt can't get his leg up underneath himself and cannot lift his leg. Prior Treatments and Tests PT in past Treatment Goals Patient/Caregiver Goals Be able to walk distances & be able to walk a trail, be more confident about balance, have an analysis of gaito understand dysfunction, be able to go up/down stairs w/o feeling unstable Personal Factors Other Personal Factors That May Effect B TSA, R TKA, mult hand Therapy/Recovery surgeries, drainage of R hallux & removal of gout crystals, T11-12, L2-3, 3-4, 4 -5 lami and L4-5 fusion PT-OP-C Subjective Start: 11/27/20 13:42 Freq: Status: Active Protocol: Document 01/14/21 14:10 [facility] (Rec: 01/14/21 14:19 [facility] [id number]) OP-PT Subjective Patient Comments Patient Comments Patient skeptical but willing to try aquatic therapy. Patient reports he likes the water, used to dive (last about 6 years ago due to multiple surgeries). Wants to improve his strength, flexibility, balance, and return to prior activities including diving if possible. PT-OP-D Balance Start: 11/27/20 13:42 Freq: Status: Active Protocol: Document 12/01/20 14:05 [facility] (Rec: 12/01/20 15:18 [facility] [id number]) Balance Tests Single Limb Standing Single Limb- Right 2sec w./lat lean & UEs uses Single Limb- Left 5 sec w./lat lean & UEs uses PT-OP-E Functional Tests Start: 11/27/20 13:42 Freq: Status: Active Protocol: Document 01/07/21 09:51 [facility] (Rec: 01/07/21 11:47 [facility] [id number]) Functional Tests 6 Minute Walk Test Distance 1075ft 30 Second Sit to Stand Test Score 8x Five Times Sit to Stand Test Score 18 sec PT-OP-G Mobility & Gait Start: 11/27/20 13:42 Freq: Status: Active Protocol: Document 12/01/20 14:05 [facility] (Rec: 12/01/20 15:18 [facility] [id number]) OP Mobility Evaluation Bed Mobility Rolling able to roll Supine to and from Sit required assist to sit up Transfers Sit to Stand slow and very slow to start moving OP Gait Assessment Comments Gait Comments lat lean w/WB R>L PT-OP-J Posture/Palpation/Skin Start: 11/27/20 13:42 Freq: Status: Active Protocol: Document 12/01/20 14:05 [facility] (Rec: 12/01/20 15:18 [facility] [id number]) Posture Evaluation Comments Posture Comments fwd flex posture PT-OP-M Strength Start: 11/27/20 13:42 Freq: Status: Active Protocol: Document 01/07/21 09:51 [facility] (Rec: 01/07/21 11:47 [facility] [id number]) Hip Strength Hip Manual Muscle Testing Right Flexion (L2) 3- Fair- Extension (S1) 3- Fair- Abduction 3- Fair- External Rotation 4- Good- Internal Rotation 3+ Fair+ Comments pain in post knee w/hip ext; pain in hip w/flex & IR Left Flexion (L2) 3 Fair Extension (S1) 3- Fair- Abduction 3- Fair- External Rotation 4 Good Internal Rotation 4 Good Knee Strength Knee Manual Muscle Testing Right Flexion (S2) 5 Normal Extension (L3) 4+ Good+ Left Flexion (S2) 4+ Good+ Extension (L3) 4+ Good+ Ankle/Foot Strength Ankle and Foot Manual Muscle Testing Right Dorsiflexion (L4) 5 Normal Plantarflexion (S1) 5 Normal Left Dorsiflexion (L4) 5 Normal Plantarflexion (S1) 5 Normal Comments PF tested seated PT-OP-Q Treatments Start: 11/27/20 13:42 Freq: Status: Active Protocol: Document 01/12/21 11:01 [facility] (Rec: 01/12/21 11:11 [facility] [id number]) Gym Equipment Therapeutic Ball seated Ball Size/Color 75cm Body Position Sitting Comments 1. pelvic tilts x20 2. pelvic circles x20 B 3. attempted marches and kicks but painful to R hip flexors Therapeutic Exercises Supine Exercises pelvic tilt Reps/Minutes 2x10 Comments cues for full range LTR Supine Exercise Name max cues for use of core Side bilateral Reps/Minutes 3x10 Comments mult reps to work on different movement patterns Standing Exercises Hip Ext/Abd diagonial Standing Exercise Name cues to keep foot close to the ground Side bilateral Reps/Minutes 2x15 Comments cues for comfortable range Self-Care/Home Management Treatment Education Other Education edu re: benefits of pool therapy and how exercise in the pool would be less impact. discussed possible gym membership at pool and access to equipment there so he could start working out more often. Discussed 1x/week pool and 1x on land PT-OP-S Aquatic Treatment Start: 01/14/21 14:10 Freq: Status: Active Protocol: Document 01/14/21 14:10 [facility] (Rec: 01/14/21 14:19 [facility] [id number]) Aquatics Treatment Pool Entry/Exit Pool Entry/Exit Method Stairs Assistance Independent Water Walking step up/down Water Level Neck Level Level of Assistance Verbal Cues Comments 8 box (painful more shallow) fwd, bck, , may, may kick Water Level Chest Level Level of Assistance Verbal Cues Lower Extremity Exercises LE stretches Details HS, ITB, groin, quad Body Position Standing Water Level Chest Level Equipment Small Noodle hip flex/ext, ab/ad, circles, heel raise, toe raise Body Position Standing Upper Extremity Exercises Hor ab/ad with core stab Body Position Standing Water Level Chest Level Reps/Duration 10x Spinal Exercises deep water hang Body Position Standing Water Level [place] Equipment pool edge Reps/Duration 30 Balance SLS Reps/Duration 30 ea LE [place] Activities [place] Activities Bicycle,Bicycle Backwards, Running Equipment flotation belt, noodle in UE's bckwd Duration 10 min PT-OP-T Assessment and Plan Start: 11/27/20 13:42 Freq: Status: Active Protocol: Document 01/14/21 14:10 [facility] (Rec: 01/14/21 14:19 [facility] [id number]) Physical Therapy Assessment Rehab Potential Rehabilitation Potential Good Impairments Impairments Activity Tolerance,Balance, Functional Activities, Functional Mobility,Gait,Pain, Posture,ROM,Soft Tissue Mobility,Strength,Transfers Goals activities Short Term Goal (STG) Pt will be able to go up and down a curb and stairs w/o LOB w/o UE support. 01/07-pt reports improved STG Duration 01/31/21 Document Review Specialist Goal (LTG) Pt will be able to go for 1 mile walks with no more than 4 /10 pain. LTG Duration 03/02/21 balance Short Term Goal (STG) Pt will be able to do SLS 10 sec B 01/07-L 15 sec, R 2 sec STG Duration 01/31/21 Senior Living Goal (LTG) Pt will be able to score at least 25/30 on FGA to show improved balance and low risk for falls. LTG Duration 03/02/21 strength Short Term Goal (STG) Pt will be indep w/ HEP STG Duration achieved progressing as able Senior Living Goal (LTG) Pt will score at least 1 full MMT grade higher on all LE MMT in order to improve pt joint stability and dec pain and improve strength to improve pt 's ease w/activities. 01/07-improved LTG Duration 03/02/21 sit to stand Short Term Goal (STG) Pt will improve 5x sit to stand test to no greater than 15 sec (norm 12 sec) to show improved functional ability. 01/07-1 sec improvement STG Duration 01/31/21 Senior Living Goal (LTG) Pt will improve 30 sec sit to stand score to 12x to show improved balance and LE strength LTG Duration 03/02/21 6 min walk Short Term Goal (STG) Pt will be able to complete 6 min walk test without requring a rest break STG Duration achieved Document Review Specialist Goal (LTG) Pt waill be able to walk 1171ft with no more than 2/10 pain after to show more age related norms for functional abiltiy in gait. 01/07-improved to 1070ft LTG Duration 03/03/21 Assessment Summary Assessment Patient reported he can see how aquatic therapy could be helpful for him, enjoyed the freedom of movement and ability to challenge his balance safely. In chest level water able to stand bryce for 30, but with active LE ex without UE support had difficulty with balance. Physical Therapy Plan Frequency and Duration Frequency of Treatment 2x/Week Duration of Treatment 3 months Plan of Care Start Date 12/01/20 Plan of Care End Date 03/02/21 Therapeutic Interventions Therapeutic Interventions Balance Training,Home Exercise Program,Manual Therapy, Patient/Caregiver Education, Self-Care/Home Management,Soft Tissue Mobilization, Therapeutic Activities, Therapeutic Exercises Next Visit Focus/Plan Next Note Type Treatment Note Next Visit Plan cont to work on balance, challenge for hip flex, abd & ext strength along w/ activation of core; land and aquatic-based.
--- NOTE | 2021-01-19 18:10 | PT.OTN ---
Current Diagnoses Other chronic pain (01/19/21) Low back pain (01/19/21) Muscle weakness (generalized) (01/19/21) Difficulty in walking, not elsewhere classified (01/19/21) Unsteadiness on feet (01/19/21) Abnormal posture (01/19/21) Physical Therapy Treatment Note PT-OP-A Visit Information Start: 11/27/20 13:42 Freq: Status: Active Protocol: Document 01/19/21 18:03 [facility] (Rec: 01/19/21 18:10 [facility] [id number]) Out-Patient Physical Therapy Visit Information Visit Information Visit Type Treatment Note Visit Note 06/21 Visit Start Time 09:49 Visit Stop Time 10:32 Total Visit Minutes 43 Visit Number 13 Number of MACHINE OPERATOR CANE CUTTER Visits 0 PT-OP-B Current Condition Start: 11/27/20 13:42 Freq: Status: Active Protocol: Document 12/01/20 14:05 [facility] (Rec: 12/01/20 15:18 [facility] [id number]) Current Condition History of Current Condition Onset Date worse over the past year Current Complaints balance, gait History of Current Condition Pt reports increasing difficulty with walking over uneven surfaces and has trouble w/stairs and curbs. In random intervals, R and LLE feels like they may give out ( mostly knee giving out sensation). Pt reports B foot pain that is gout like. pt reprots knees hurt at night with occasionally that discomfort being enough to wake him. Pt reports over the past year, inc difficulty with getting out of stair and feeling imbalance when first getting up. Pt reports LB is stiff and he is discouraged because he is trying to do his regular old PT exercises and trying tto walk but it hurts like hell to his legs, hips, knees, feet. He does stretches including bending over. He feels like his walk is a jarring walk and cannot walk on uneven ground. He has to hold a railing when stepping down and feels really uncertain. Pt reports he has been in pain since he was 22 years old. he does not want palliative care. Pt feels like he is occ feeling anticipatory pain and thinks he may have to talk to a psychiatrist. Pt got an electric bike with a low step through and he is scared to get on it. Pt reports he also can't get off the ground w/o pulling up on something. Pt can't get his leg up underneath himself and cannot lift his leg. Prior Treatments and Tests PT in past Treatment Goals Patient/Caregiver Goals Be able to walk distances & be able to walk a trail, be more confident about balance, have an analysis of gaito understand dysfunction, be able to go up/down stairs w/o feeling unstable Personal Factors Other Personal Factors That May Effect B TSA, R TKA, mult hand Therapy/Recovery surgeries, drainage of R hallux & removal of gout crystals, T11-12, L2-3, 3-4, 4 -5 lami and L4-5 fusion PT-OP-C Subjective Start: 11/27/20 13:42 Freq: Status: Active Protocol: Document 01/19/21 18:03 [facility] (Rec: 01/19/21 18:10 [facility] [id number]) OP-PT Subjective Patient Comments Patient Comments Pt reports 1/10 pain today overall. He has been icing and using CBD cream. He felt worn out from the pool PT-OP-D Balance Start: 11/27/20 13:42 Freq: Status: Active Protocol: Document 12/01/20 14:05 [facility] (Rec: 12/01/20 15:18 [facility] [id number]) Balance Tests Single Limb Standing Single Limb- Right 2sec w./lat lean & UEs uses Single Limb- Left 5 sec w./lat lean & UEs uses PT-OP-E Functional Tests Start: 11/27/20 13:42 Freq: Status: Active Protocol: Document 01/07/21 09:51 [facility] (Rec: 01/07/21 11:47 [facility] [id number]) Functional Tests 6 Minute Walk Test Distance 1075ft 30 Second Sit to Stand Test Score 8x Five Times Sit to Stand Test Score 18 sec PT-OP-G Mobility & Gait Start: 11/27/20 13:42 Freq: Status: Active Protocol: Document 12/01/20 14:05 [facility] (Rec: 12/01/20 15:18 [facility] [id number]) OP Mobility Evaluation Bed Mobility Rolling able to roll Supine to and from Sit required assist to sit up Transfers Sit to Stand slow and very slow to start moving OP Gait Assessment Comments Gait Comments lat lean w/WB R>L PT-OP-J Posture/Palpation/Skin Start: 11/27/20 13:42 Freq: Status: Active Protocol: Document 12/01/20 14:05 [facility] (Rec: 12/01/20 15:18 [facility] [id number]) Posture Evaluation Comments Posture Comments fwd flex posture PT-OP-M Strength Start: 11/27/20 13:42 Freq: Status: Active Protocol: Document 01/07/21 09:51 [facility] (Rec: 01/07/21 11:47 [facility] [id number]) Hip Strength Hip Manual Muscle Testing Right Flexion (L2) 3- Fair- Extension (S1) 3- Fair- Abduction 3- Fair- External Rotation 4- Good- Internal Rotation 3+ Fair+ Comments pain in post knee w/hip ext; pain in hip w/flex & IR Left Flexion (L2) 3 Fair Extension (S1) 3- Fair- Abduction 3- Fair- External Rotation 4 Good Internal Rotation 4 Good Knee Strength Knee Manual Muscle Testing Right Flexion (S2) 5 Normal Extension (L3) 4+ Good+ Left Flexion (S2) 4+ Good+ Extension (L3) 4+ Good+ Ankle/Foot Strength Ankle and Foot Manual Muscle Testing Right Dorsiflexion (L4) 5 Normal Plantarflexion (S1) 5 Normal Left Dorsiflexion (L4) 5 Normal Plantarflexion (S1) 5 Normal Comments PF tested seated PT-OP-Q Treatments Start: 11/27/20 13:42 Freq: Status: Active Protocol: Document 01/19/21 18:03 [facility] (Rec: 01/19/21 18:10 [facility] [id number]) Gym Equipment Shuttle Balance red clips Comments fwd: WBOS & NBOS w/head turns; staggered stance side: WBOS w/head turns& NBOS Therapeutic Exercises Standing Exercises step up Standing Exercise Name focus on control Side bilateral Equipment Used 4 in step Reps/Minutes 10 Manual Therapy Treatment Soft Tissue Mobilization QL Body Location R QL & ES Mobilization Type Rolling Intensity/Depth Moderate Body Position Sidelying Comments w/PROM ant elevation/post dep Neuro Re-Education Treatment Balance Activities hurdles Comments 1. fwd over 6 x6 2. over 6 curved to R then L x 2 ea 3. side step x2 B Tandem Details staggered stance B EC PT-OP-S Aquatic Treatment Start: 01/14/21 14:10 Freq: Status: Active Protocol: Document 01/14/21 14:10 [facility] (Rec: 01/14/21 14:19 [facility] [id number]) Aquatics Treatment Pool Entry/Exit Pool Entry/Exit Method Stairs Assistance Independent Water Walking step up/down Water Level Neck Level Level of Assistance Verbal Cues Comments 8 box (painful more shallow) fwd, bck, , may, may kick Water Level Chest Level Level of Assistance Verbal Cues Lower Extremity Exercises LE stretches Details HS, ITB, groin, quad Body Position Standing Water Level Chest Level Equipment Small Noodle hip flex/ext, ab/ad, circles, heel raise, toe raise Body Position Standing Upper Extremity Exercises Hor ab/ad with core stab Body Position Standing Water Level Chest Level Reps/Duration 10x Spinal Exercises deep water hang Body Position Standing Water Level Hugo Equipment pool edge Reps/Duration 30 Balance SLS Reps/Duration 30 ea LE Hugo Activities Hugo Activities Bicycle,Bicycle Backwards, Running Equipment flotation belt, noodle in UE's bckwd Duration 10 min PT-OP-T Assessment and Plan Start: 11/27/20 13:42 Freq: Status: Active Protocol: Document 01/19/21 18:03 [facility] (Rec: 01/19/21 18:10 [facility] [id number]) Physical Therapy Assessment Goals activities Short Term Goal (STG) Pt will be able to go up and down a curb and stairs w/o LOB w/o UE support. 01/07-pt reports improved STG Duration 01/31/21 Lumber Straightener Goal (LTG) Pt will be able to go for 1 mile walks with no more than 4 /10 pain. LTG Duration 03/02/21 balance Short Term Goal (STG) Pt will be able to do SLS 10 sec B 01/07-L 15 sec, R 2 sec STG Duration 01/31/21 Lumber Straightener Goal (LTG) Pt will be able to score at least 25/30 on FGA to show improved balance and low risk for falls. LTG Duration 03/02/21 strength Short Term Goal (STG) Pt will be indep w/ HEP STG Duration achieved progressing as able Lumber Straightener Goal (LTG) Pt will score at least 1 full MMT grade higher on all LE MMT in order to improve pt joint stability and dec pain and improve strength to improve pt 's ease w/activities. 01/07-improved LTG Duration 03/02/21 sit to stand Short Term Goal (STG) Pt will improve 5x sit to stand test to no greater than 15 sec (norm 12 sec) to show improved functional ability. 01/07-1 sec improvement STG Duration 01/31/21 Correction Goal (LTG) Pt will improve 30 sec sit to stand score to 12x to show improved balance and LE strength LTG Duration 03/02/21 6 min walk Short Term Goal (STG) Pt will be able to complete 6 min walk test without requring a rest break STG Duration achieved Correction Goal (LTG) Pt waill be able to walk 1171ft with no more than 2/10 pain after to show more age related norms for functional abiltiy in gait. 01/07-improved to 1070ft LTG Duration 03/03/21 Assessment Summary Assessment Pt overall tolerated session well with c/o gradual inc of knee pain as session cont. He showed less dec balance and difficulty w/step over hurdles today and did well w/step ups but w/greater than 4 in step up, he does a very quick motion to push himself up the step and has dec quad strength and control. Physical Therapy Plan Frequency and Duration Frequency of Treatment 2x/Week Duration of Treatment 3 months Plan of Care Start Date 12/01/20 Plan of Care End Date 03/02/21 Next Visit Focus/Plan Next Note Type Treatment Note Next Visit Plan cont to work on balance, challenge for hip flex, abd & ext strength along w/ activation of core; land and aquatic-based.
--- NOTE | 2021-01-21 14:22 | PT.OTN ---
Current Diagnoses Other chronic pain (01/19/21) Low back pain (01/19/21) Muscle weakness (generalized) (01/19/21) Difficulty in walking, not elsewhere classified (01/19/21) Unsteadiness on feet (01/19/21) Abnormal posture (01/19/21) Physical Therapy Treatment Note PT-OP-A Visit Information Start: 11/27/20 13:42 Freq: Status: Active Protocol: Document 01/21/21 14:05 [facility] (Rec: 01/21/21 14:21 [facility] [id number]) Out-Patient Physical Therapy Visit Information Visit Information Visit Type Treatment Note Visit Note 07/21 Visit Start Time 11:00 Visit Stop Time 11:45 Total Visit Minutes 45 Visit Number 14 Number of NEGATIVE CUTTER Visits 0 PT-OP-B Current Condition Start: 11/27/20 13:42 Freq: Status: Active Protocol: Document 12/01/20 14:05 [facility] (Rec: 12/01/20 15:18 [facility] [id number]) Current Condition History of Current Condition Onset Date worse over the past year Current Complaints balance, gait History of Current Condition Pt reports increasing difficulty with walking over uneven surfaces and has trouble w/stairs and curbs. In random intervals, R and LLE feels like they may give out ( mostly knee giving out sensation). Pt reports B foot pain that is gout like. pt reprots knees hurt at night with occasionally that discomfort being enough to wake him. Pt reports over the past year, inc difficulty with getting out of stair and feeling imbalance when first getting up. Pt reports LB is stiff and he is discouraged because he is trying to do his regular old PT exercises and trying tto walk but it hurts like hell to his legs, hips, knees, feet. He does stretches including bending over. He feels like his walk is a jarring walk and cannot walk on uneven ground. He has to hold a railing when stepping down and feels really uncertain. Pt reports he has been in pain since he was 22 years old. he does not want palliative care. Pt feels like he is occ feeling anticipatory pain and thinks he may have to talk to a psychiatrist. Pt got an electric bike with a low step through and he is scared to get on it. Pt reports he also can't get off the ground w/o pulling up on something. Pt can't get his leg up underneath himself and cannot lift his leg. Prior Treatments and Tests PT in past Treatment Goals Patient/Caregiver Goals Be able to walk distances & be able to walk a trail, be more confident about balance, have an analysis of gaito understand dysfunction, be able to go up/down stairs w/o feeling unstable Personal Factors Other Personal Factors That May Effect B TSA, R TKA, mult hand Therapy/Recovery surgeries, drainage of R hallux & removal of gout crystals, T11-12, L2-3, 3-4, 4 -5 lami and L4-5 fusion PT-OP-C Subjective Start: 11/27/20 13:42 Freq: Status: Active Protocol: Document 01/21/21 14:05 [facility] (Rec: 01/21/21 14:21 [facility] [id number]) OP-PT Subjective Patient Comments Patient Comments No new c/o, had stiffness after first aquatic PT treatment but no increase in pain. Excited to continue. Did not bring mask or snorkel. PT-OP-D Balance Start: 11/27/20 13:42 Freq: Status: Active Protocol: Document 12/01/20 14:05 [facility] (Rec: 12/01/20 15:18 [facility] [id number]) Balance Tests Single Limb Standing Single Limb- Right 2sec w./lat lean & UEs uses Single Limb- Left 5 sec w./lat lean & UEs uses PT-OP-E Functional Tests Start: 11/27/20 13:42 Freq: Status: Active Protocol: Document 01/07/21 09:51 [facility] (Rec: 01/07/21 11:47 [facility] [id number]) Functional Tests 6 Minute Walk Test Distance 1075ft 30 Second Sit to Stand Test Score 8x Five Times Sit to Stand Test Score 18 sec PT-OP-G Mobility & Gait Start: 11/27/20 13:42 Freq: Status: Active Protocol: Document 12/01/20 14:05 [facility] (Rec: 12/01/20 15:18 [facility] [id number]) OP Mobility Evaluation Bed Mobility Rolling able to roll Supine to and from Sit required assist to sit up Transfers Sit to Stand slow and very slow to start moving OP Gait Assessment Comments Gait Comments lat lean w/WB R>L PT-OP-J Posture/Palpation/Skin Start: 11/27/20 13:42 Freq: Status: Active Protocol: Document 12/01/20 14:05 [facility] (Rec: 12/01/20 15:18 [facility] [id number]) Posture Evaluation Comments Posture Comments fwd flex posture PT-OP-M Strength Start: 11/27/20 13:42 Freq: Status: Active Protocol: Document 01/07/21 09:51 [facility] (Rec: 01/07/21 11:47 [facility] [id number]) Hip Strength Hip Manual Muscle Testing Right Flexion (L2) 3- Fair- Extension (S1) 3- Fair- Abduction 3- Fair- External Rotation 4- Good- Internal Rotation 3+ Fair+ Comments pain in post knee w/hip ext; pain in hip w/flex & IR Left Flexion (L2) 3 Fair Extension (S1) 3- Fair- Abduction 3- Fair- External Rotation 4 Good Internal Rotation 4 Good Knee Strength Knee Manual Muscle Testing Right Flexion (S2) 5 Normal Extension (L3) 4+ Good+ Left Flexion (S2) 4+ Good+ Extension (L3) 4+ Good+ Ankle/Foot Strength Ankle and Foot Manual Muscle Testing Right Dorsiflexion (L4) 5 Normal Plantarflexion (S1) 5 Normal Left Dorsiflexion (L4) 5 Normal Plantarflexion (S1) 5 Normal Comments PF tested seated PT-OP-Q Treatments Start: 11/27/20 13:42 Freq: Status: Active Protocol: Document 01/19/21 18:03 [facility] (Rec: 01/19/21 18:10 [facility] [id number]) Gym Equipment Shuttle Balance red clips Comments fwd: WBOS & NBOS w/head turns; staggered stance side: WBOS w/head turns& NBOS Therapeutic Exercises Standing Exercises step up Standing Exercise Name focus on control Side bilateral Equipment Used 4 in step Reps/Minutes 10 Manual Therapy Treatment Soft Tissue Mobilization QL Body Location R QL & ES Mobilization Type Rolling Intensity/Depth Moderate Body Position Sidelying Comments w/PROM ant elevation/post dep Neuro Re-Education Treatment Balance Activities hurdles Comments 1. fwd over 6 x6 2. over 6 curved to R then L x 2 ea 3. side step x2 B Tandem Details staggered stance B EC PT-OP-S Aquatic Treatment Start: 01/14/21 14:10 Freq: Status: Active Protocol: Document 01/21/21 14:05 [facility] (Rec: 01/21/21 14:21 [facility] [id number]) Aquatics Treatment Pool Entry/Exit Pool Entry/Exit Method Stairs Assistance Independent Water Walking step up/down Water Level Neck Level Walking Equipment 8 box Level of Assistance Verbal Cues Comments forward and side fwd, bck, side, may, may kick Water Level Chest Level Level of Assistance Verbal Cues Comments no UE support Lower Extremity Exercises aqua bike Water Level Chest Level Reps/Duration 5 min Comments slow pace hamstring curl Reps/Duration 10x Comments no UE support hip flex/ext, ab/ad, circles, heel raise, toe raise Body Position Standing Reps/Duration 10x ea Comments no UE support Upper Extremity Exercises Hor ab/ad with core stab Body Position Standing Water Level Chest Level Reps/Duration 10x Balance SLS Reps/Duration 30 ea LE Saltese Activities Saltese Activities Bicycle,Bicycle Backwards, Cross [place],Running,Sit Kicks Equipment flotation belt, noodle in UE's bckwd Duration 12 min PT-OP-T Assessment and Plan Start: 11/27/20 13:42 Freq: Status: Active Protocol: Document 01/21/21 14:05 [facility] (Rec: 01/21/21 14:21 [facility] [id number]) Physical Therapy Assessment Rehab Potential Rehabilitation Potential Good Impairments Impairments Activity Tolerance,Balance, Functional Activities, Functional Mobility,Gait,Pain, Posture,ROM,Soft Tissue Mobility,Strength,Transfers Goals activities Short Term Goal (STG) Pt will be able to go up and down a curb and stairs w/o LOB w/o UE support. 01/07-pt reports improved STG Duration 01/31/21 Alf Goal (LTG) Pt will be able to go for 1 mile walks with no more than 4 /10 pain. LTG Duration 03/02/21 balance Short Term Goal (STG) Pt will be able to do SLS 10 sec B 01/07-L 15 sec, R 2 sec STG Duration 01/31/21 Director Hardware Goal (LTG) Pt will be able to score at least 25/30 on FGA to show improved balance and low risk for falls. LTG Duration 03/02/21 strength Short Term Goal (STG) Pt will be indep w/ HEP STG Duration achieved progressing as able Director Hardware Goal (LTG) Pt will score at least 1 full MMT grade higher on all LE MMT in order to improve pt joint stability and dec pain and improve strength to improve pt 's ease w/activities. 01/07-improved LTG Duration 03/02/21 sit to stand Short Term Goal (STG) Pt will improve 5x sit to stand test to no greater than 15 sec (norm 12 sec) to show improved functional ability. 01/07-1 sec improvement STG Duration 01/31/21 Director Hardware Goal (LTG) Pt will improve 30 sec sit to stand score to 12x to show improved balance and LE strength LTG Duration 03/02/21 6 min walk Short Term Goal (STG) Pt will be able to complete 6 min walk test without requring a rest break STG Duration achieved Director Hardware Goal (LTG) Pt waill be able to walk 1171ft with no more than 2/10 pain after to show more age related norms for functional abiltiy in gait. 01/07-improved to 1070ft LTG Duration 03/03/21 Assessment Summary Assessment No pain with step-ups onto 8 boxes at chest level today, added side step-ups and aqua bike with good tolerance. Decreased UE support with LE ex. Physical Therapy Plan Frequency and Duration Frequency of Treatment 2x/Week Duration of Treatment 3 months Plan of Care Start Date 12/01/20 Plan of Care End Date 03/02/21 Therapeutic Interventions Therapeutic Interventions Balance Training,Home Exercise Program,Manual Therapy, Patient/Caregiver Education, Self-Care/Home Management,Soft Tissue Mobilization, Therapeutic Activities, Therapeutic Exercises Next Visit Focus/Plan Next Note Type Treatment Note Next Visit Plan Aquatic: initiate prone adaptive crawl, progress ther ex in shallow and deep for strengthening core stabilization. Land: continue per POC
--- NOTE | 2021-01-26 11:11 | PT.OTN ---
Current Diagnoses Other chronic pain (01/26/21) Low back pain (01/26/21) Muscle weakness (generalized) (01/26/21) Difficulty in walking, not elsewhere classified (01/26/21) Unsteadiness on feet (01/26/21) Abnormal posture (01/26/21) Physical Therapy Treatment Note PT-OP-A Visit Information Start: 11/27/20 13:42 Freq: Status: Active Protocol: Document 01/26/21 10:52 [facility] (Rec: 01/26/21 11:11 [facility] [id number]) Out-Patient Physical Therapy Visit Information Visit Information Visit Type Treatment Note Visit Note 08/21 Visit Start Time 09:45 Visit Stop Time 10:30 Total Visit Minutes 45 Visit Number 15 Number of SLASHER TENDER Visits 0 PT-OP-B Current Condition Start: 11/27/20 13:42 Freq: Status: Active Protocol: Document 12/01/20 14:05 [facility] (Rec: 12/01/20 15:18 [facility] [id number]) Current Condition History of Current Condition Onset Date worse over the past year Current Complaints balance, gait History of Current Condition Pt reports increasing difficulty with walking over uneven surfaces and has trouble w/stairs and curbs. In random intervals, R and LLE feels like they may give out ( mostly knee giving out sensation). Pt reports B foot pain that is gout like. pt reprots knees hurt at night with occasionally that discomfort being enough to wake him. Pt reports over the past year, inc difficulty with getting out of stair and feeling imbalance when first getting up. Pt reports LB is stiff and he is discouraged because he is trying to do his regular old PT exercises and trying tto walk but it hurts like hell to his legs, hips, knees, feet. He does stretches including bending over. He feels like his walk is a jarring walk and cannot walk on uneven ground. He has to hold a railing when stepping down and feels really uncertain. Pt reports he has been in pain since he was 22 years old. he does not want palliative care. Pt feels like he is occ feeling anticipatory pain and thinks he may have to talk to a psychiatrist. Pt got an electric bike with a low step through and he is scared to get on it. Pt reports he also can't get off the ground w/o pulling up on something. Pt can't get his leg up underneath himself and cannot lift his leg. Prior Treatments and Tests PT in past Treatment Goals Patient/Caregiver Goals Be able to walk distances & be able to walk a trail, be more confident about balance, have an analysis of gaito understand dysfunction, be able to go up/down stairs w/o feeling unstable Personal Factors Other Personal Factors That May Effect B TSA, R TKA, mult hand Therapy/Recovery surgeries, drainage of R hallux & removal of gout crystals, T11-12, L2-3, 3-4, 4 -5 lami and L4-5 fusion PT-OP-C Subjective Start: 11/27/20 13:42 Freq: Status: Active Protocol: Document 01/26/21 10:52 [facility] (Rec: 01/26/21 11:11 [facility] [id number]) OP-PT Subjective Patient Comments Patient Comments Pt reports some knee soreness from going up a couple steps on a ladder inside at home but had to have his do the task PT-OP-D Balance Start: 11/27/20 13:42 Freq: Status: Active Protocol: Document 12/01/20 14:05 [facility] (Rec: 12/01/20 15:18 [facility] [id number]) Balance Tests Single Limb Standing Single Limb- Right 2sec w./lat lean & UEs uses Single Limb- Left 5 sec w./lat lean & UEs uses PT-OP-E Functional Tests Start: 11/27/20 13:42 Freq: Status: Active Protocol: Document 01/07/21 09:51 [facility] (Rec: 01/07/21 11:47 [facility] [id number]) Functional Tests 6 Minute Walk Test Distance 1075ft 30 Second Sit to Stand Test Score 8x Five Times Sit to Stand Test Score 18 sec PT-OP-G Mobility & Gait Start: 11/27/20 13:42 Freq: Status: Active Protocol: Document 12/01/20 14:05 [facility] (Rec: 12/01/20 15:18 [facility] [id number]) OP Mobility Evaluation Bed Mobility Rolling able to roll Supine to and from Sit required assist to sit up Transfers Sit to Stand slow and very slow to start moving OP Gait Assessment Comments Gait Comments lat lean w/WB R>L PT-OP-J Posture/Palpation/Skin Start: 11/27/20 13:42 Freq: Status: Active Protocol: Document 12/01/20 14:05 [facility] (Rec: 12/01/20 15:18 [facility] [id number]) Posture Evaluation Comments Posture Comments fwd flex posture PT-OP-M Strength Start: 11/27/20 13:42 Freq: Status: Active Protocol: Document 01/07/21 09:51 [facility] (Rec: 01/07/21 11:47 [facility] [id number]) Hip Strength Hip Manual Muscle Testing Right Flexion (L2) 3- Fair- Extension (S1) 3- Fair- Abduction 3- Fair- External Rotation 4- Good- Internal Rotation 3+ Fair+ Comments pain in post knee w/hip ext; pain in hip w/flex & IR Left Flexion (L2) 3 Fair Extension (S1) 3- Fair- Abduction 3- Fair- External Rotation 4 Good Internal Rotation 4 Good Knee Strength Knee Manual Muscle Testing Right Flexion (S2) 5 Normal Extension (L3) 4+ Good+ Left Flexion (S2) 4+ Good+ Extension (L3) 4+ Good+ Ankle/Foot Strength Ankle and Foot Manual Muscle Testing Right Dorsiflexion (L4) 5 Normal Plantarflexion (S1) 5 Normal Left Dorsiflexion (L4) 5 Normal Plantarflexion (S1) 5 Normal Comments PF tested seated PT-OP-Q Treatments Start: 11/27/20 13:42 Freq: Status: Active Protocol: Document 01/26/21 10:52 [facility] (Rec: 01/26/21 11:11 [facility] [id number]) Gym Equipment Therapeutic Ball seated Ball Size/Color 75cm Body Position Sitting Comments 1. pelvic circles x20 B 2. may B x10 Required rail hold 3.knee ext x6 B required rail Therapeutic Exercises Standing Exercises step up Standing Exercise Name focus on control Side bilateral Equipment Used 5 in step Reps/Minutes 12 Manual Therapy Treatment Soft Tissue Mobilization thigh Body Location Lat quad R Mobilization Type Rolling,Strumming Intensity/Depth Moderate Body Position Hooklying Neuro Re-Education Treatment Balance Activities foam pad Comments 1.NBOS EC 2. side step up then over x10 B hurdles Comments single carla tap fwd/back over x10 B single carla tap side/side over x10 B PT-OP-S Aquatic Treatment Start: 01/14/21 14:10 Freq: Status: Active Protocol: Document 01/21/21 14:05 [facility] (Rec: 01/21/21 14:21 [facility] [id number]) Aquatics Treatment Pool Entry/Exit Pool Entry/Exit Method Stairs Assistance Independent Water Walking step up/down Water Level Neck Level Walking Equipment 8 box Level of Assistance Verbal Cues Comments forward and side fwd, bck, side, may, may kick Water Level Chest Level Level of Assistance Verbal Cues Comments no UE support Lower Extremity Exercises aqua bike Water Level Chest Level Reps/Duration 5 min Comments slow pace hamstring curl Reps/Duration 10x Comments no UE support hip flex/ext, ab/ad, circles, heel raise, toe raise Body Position Standing Reps/Duration 10x ea Comments no UE support Upper Extremity Exercises Hor ab/ad with core stab Body Position Standing Water Level Chest Level Reps/Duration 10x Balance SLS Reps/Duration 30 ea LE [place] Activities [place] Activities Bicycle,Bicycle Backwards, Cross Country,Running,Sit Kicks Equipment flotation belt, noodle in UE's bckwd Duration 12 min PT-OP-T Assessment and Plan Start: 11/27/20 13:42 Freq: Status: Active Protocol: Document 01/26/21 10:52 [facility] (Rec: 01/26/21 11:11 [facility] [id number]) Physical Therapy Assessment Goals activities Short Term Goal (STG) Pt will be able to go up and down a curb and stairs w/o LOB w/o UE support. 01/07-pt reports improved STG Duration 01/31/21 Custodial Goal (LTG) Pt will be able to go for 1 mile walks with no more than 4 /10 pain. LTG Duration 03/02/21 balance Short Term Goal (STG) Pt will be able to do SLS 10 sec B 01/07-L 15 sec, R 2 sec STG Duration 01/31/21 Automation And Controls Supervisor Goal (LTG) Pt will be able to score at least 25/30 on FGA to show improved balance and low risk for falls. LTG Duration 03/02/21 strength Short Term Goal (STG) Pt will be indep w/ HEP STG Duration achieved progressing as able Automation And Controls Supervisor Goal (LTG) Pt will score at least 1 full MMT grade higher on all LE MMT in order to improve pt joint stability and dec pain and improve strength to improve pt 's ease w/activities. 01/07-improved LTG Duration 03/02/21 sit to stand Short Term Goal (STG) Pt will improve 5x sit to stand test to no greater than 15 sec (norm 12 sec) to show improved functional ability. 01/07-1 sec improvement STG Duration 01/31/21 Automation And Controls Supervisor Goal (LTG) Pt will improve 30 sec sit to stand score to 12x to show improved balance and LE strength LTG Duration 03/02/21 6 min walk Short Term Goal (STG) Pt will be able to complete 6 min walk test without requring a rest break STG Duration achieved Automation And Controls Supervisor Goal (LTG) Pt waill be able to walk 1171ft with no more than 2/10 pain after to show more age related norms for functional abiltiy in gait. 01/07-improved to 1070ft LTG Duration 03/03/21 Assessment Summary Assessment Seated on the ball was very difficult for pt and he had difficulty w/movement for circles and requried stability to be able to take one leg out from under to do other exercises. He did better with step ups but was still challenged by uneven surfaces and higher step. Physical Therapy Plan Frequency and Duration Frequency of Treatment 2x/Week Duration of Treatment 3 months Plan of Care Start Date 12/01/20 Plan of Care End Date 03/02/21 Next Visit Focus/Plan Next Note Type Treatment Note Next Visit Plan Aquatic: initiate prone adaptive crawl, progress ther ex in shallow and deep for strengthening core stabilization. Land: continue to work on core and hip strengthening
--- NOTE | 2021-01-29 18:45 | PT.OTN ---
Current Diagnoses Other chronic pain (01/29/21) Low back pain (01/29/21) Muscle weakness (generalized) (01/29/21) Difficulty in walking, not elsewhere classified (01/29/21) Unsteadiness on feet (01/29/21) Abnormal posture (01/29/21) Physical Therapy Treatment Note PT-OP-A Visit Information Start: 11/27/20 13:42 Freq: Status: Active Protocol: Document 01/29/21 18:30 [facility] (Rec: 01/29/21 18:44 [facility] [id number]) Out-Patient Physical Therapy Visit Information Visit Information Visit Type Treatment Note Visit Note 09/20 Visit Start Time 13:46 Visit Stop Time 14:30 Total Visit Minutes 44 Visit Number 16 Number of BOTTLE ASSEMBLER Visits 0 PT-OP-B Current Condition Start: 11/27/20 13:42 Freq: Status: Active Protocol: Document 12/01/20 14:05 [facility] (Rec: 12/01/20 15:18 [facility] [id number]) Current Condition History of Current Condition Onset Date worse over the past year Current Complaints balance, gait History of Current Condition Pt reports increasing difficulty with walking over uneven surfaces and has trouble w/stairs and curbs. In random intervals, R and LLE feels like they may give out ( mostly knee giving out sensation). Pt reports B foot pain that is gout like. pt reprots knees hurt at night with occasionally that discomfort being enough to wake him. Pt reports over the past year, inc difficulty with getting out of stair and feeling imbalance when first getting up. Pt reports LB is stiff and he is discouraged because he is trying to do his regular old PT exercises and trying tto walk but it hurts like hell to his legs, hips, knees, feet. He does stretches including bending over. He feels like his walk is a jarring walk and cannot walk on uneven ground. He has to hold a railing when stepping down and feels really uncertain. Pt reports he has been in pain since he was 22 years old. he does not want palliative care. Pt feels like he is occ feeling anticipatory pain and thinks he may have to talk to a psychiatrist. Pt got an electric bike with a low step through and he is scared to get on it. Pt reports he also can't get off the ground w/o pulling up on something. Pt can't get his leg up underneath himself and cannot lift his leg. Prior Treatments and Tests PT in past Treatment Goals Patient/Caregiver Goals Be able to walk distances & be able to walk a trail, be more confident about balance, have an analysis of gaito understand dysfunction, be able to go up/down stairs w/o feeling unstable Personal Factors Other Personal Factors That May Effect B TSA, R TKA, mult hand Therapy/Recovery surgeries, drainage of R hallux & removal of gout crystals, T11-12, L2-3, 3-4, 4 -5 lami and L4-5 fusion PT-OP-C Subjective Start: 11/27/20 13:42 Freq: Status: Active Protocol: Document 01/29/21 18:30 [facility] (Rec: 01/29/21 18:44 [facility] [id number]) OP-PT Subjective Patient Comments Patient Comments Pt reports some R knee soreness and L foot discomfort today PT-OP-D Balance Start: 11/27/20 13:42 Freq: Status: Active Protocol: Document 12/01/20 14:05 [facility] (Rec: 12/01/20 15:18 [facility] [id number]) Balance Tests Single Limb Standing Single Limb- Right 2sec w./lat lean & UEs uses Single Limb- Left 5 sec w./lat lean & UEs uses PT-OP-E Functional Tests Start: 11/27/20 13:42 Freq: Status: Active Protocol: Document 01/07/21 09:51 [facility] (Rec: 01/07/21 11:47 [facility] [id number]) Functional Tests 6 Minute Walk Test Distance 1075ft 30 Second Sit to Stand Test Score 8x Five Times Sit to Stand Test Score 18 sec PT-OP-G Mobility & Gait Start: 11/27/20 13:42 Freq: Status: Active Protocol: Document 12/01/20 14:05 [facility] (Rec: 12/01/20 15:18 [facility] [id number]) OP Mobility Evaluation Bed Mobility Rolling able to roll Supine to and from Sit required assist to sit up Transfers Sit to Stand slow and very slow to start moving OP Gait Assessment Comments Gait Comments lat lean w/WB R>L PT-OP-J Posture/Palpation/Skin Start: 11/27/20 13:42 Freq: Status: Active Protocol: Document 12/01/20 14:05 [facility] (Rec: 12/01/20 15:18 [facility] [id number]) Posture Evaluation Comments Posture Comments fwd flex posture PT-OP-M Strength Start: 11/27/20 13:42 Freq: Status: Active Protocol: Document 01/07/21 09:51 [facility] (Rec: 01/07/21 11:47 [facility] [id number]) Hip Strength Hip Manual Muscle Testing Right Flexion (L2) 3- Fair- Extension (S1) 3- Fair- Abduction 3- Fair- External Rotation 4- Good- Internal Rotation 3+ Fair+ Comments pain in post knee w/hip ext; pain in hip w/flex & IR Left Flexion (L2) 3 Fair Extension (S1) 3- Fair- Abduction 3- Fair- External Rotation 4 Good Internal Rotation 4 Good Knee Strength Knee Manual Muscle Testing Right Flexion (S2) 5 Normal Extension (L3) 4+ Good+ Left Flexion (S2) 4+ Good+ Extension (L3) 4+ Good+ Ankle/Foot Strength Ankle and Foot Manual Muscle Testing Right Dorsiflexion (L4) 5 Normal Plantarflexion (S1) 5 Normal Left Dorsiflexion (L4) 5 Normal Plantarflexion (S1) 5 Normal Comments PF tested seated PT-OP-Q Treatments Start: 11/27/20 13:42 Freq: Status: Active Protocol: Document 01/29/21 18:30 [facility] (Rec: 01/29/21 18:44 [facility] [id number]) Gym Equipment Therapeutic Ball seated Ball Size/Color 75cm Body Position Sitting Comments 1. pelvic circles x20 B 2. may B x10 Required rail hold 3.knee ext x8 B required rail 4. pelvic tilts x30 5.DF seated on ball x15 6. PF seated on ball x10 B Therapeutic Exercises Supine Exercises stretch Supine Exercise Name Miguel test stretch (pt heped into position) Side bilateral Reps/Minutes [id number] Standing Exercises step up Standing Exercise Name focus on control Side bilateral Equipment Used 4 in step w/blue foam on top Reps/Minutes 12 Neuro Re-Education Treatment Balance Activities foam pad Comments SLS on w/tap fwd B x15 ea attempted to side and back but aggrevating knee and back hurdles Comments step over hurdles w/lat step x8 B single carla tap side/side over x10 B carla on side PT-OP-S Aquatic Treatment Start: 01/14/21 14:10 Freq: Status: Active Protocol: Document 01/21/21 14:05 [facility] (Rec: 01/21/21 14:21 [facility] [id number]) Aquatics Treatment Pool Entry/Exit Pool Entry/Exit Method Stairs Assistance Independent Water Walking step up/down Water Level Neck Level Walking Equipment 8 box Level of Assistance Verbal Cues Comments forward and side fwd, bck, side, may, may kick Water Level Chest Level Level of Assistance Verbal Cues Comments no UE support Lower Extremity Exercises aqua bike Water Level Chest Level Reps/Duration 5 min Comments slow pace hamstring curl Reps/Duration 10x Comments no UE support hip flex/ext, ab/ad, circles, heel raise, toe raise Body Position Standing Reps/Duration 10x ea Comments no UE support Upper Extremity Exercises Hor ab/ad with core stab Body Position Standing Water Level Chest Level Reps/Duration 10x Balance SLS Reps/Duration 30 ea LE [place] Activities [place] Activities Bicycle,Bicycle Backwards, Cross [place],Running,Sit Kicks Equipment flotation belt, noodle in UE's bckwd Duration 12 min PT-OP-T Assessment and Plan Start: 11/27/20 13:42 Freq: Status: Active Protocol: Document 01/29/21 18:30 [facility] (Rec: 01/29/21 18:44 [facility] [id number]) Physical Therapy Assessment Goals activities Short Term Goal (STG) Pt will be able to go up and down a curb and stairs w/o LOB w/o UE support. 01/07-pt reports improved STG Duration 01/31/21 Improvement Nurse Goal (LTG) Pt will be able to go for 1 mile walks with no more than 4 /10 pain. LTG Duration 03/02/21 balance Short Term Goal (STG) Pt will be able to do SLS 10 sec B 01/07-L 15 sec, R 2 sec STG Duration 01/31/21 Mcfp Goal (LTG) Pt will be able to score at least 25/30 on FGA to show improved balance and low risk for falls. LTG Duration 03/02/21 strength Short Term Goal (STG) Pt will be indep w/ HEP STG Duration achieved progressing as able Mcfp Goal (LTG) Pt will score at least 1 full MMT grade higher on all LE MMT in order to improve pt joint stability and dec pain and improve strength to improve pt 's ease w/activities. 01/07-improved LTG Duration 03/02/21 sit to stand Short Term Goal (STG) Pt will improve 5x sit to stand test to no greater than 15 sec (norm 12 sec) to show improved functional ability. 01/07-1 sec improvement STG Duration 01/31/21 Improvement Nurse Goal (LTG) Pt will improve 30 sec sit to stand score to 12x to show improved balance and LE strength LTG Duration 03/02/21 6 min walk Short Term Goal (STG) Pt will be able to complete 6 min walk test without requring a rest break STG Duration achieved Mcfp Goal (LTG) Pt waill be able to walk 1171ft with no more than 2/10 pain after to show more age related norms for functional abiltiy in gait. 01/07-improved to 1070ft LTG Duration 03/03/21 Assessment Summary Assessment Pt did note some back pain with exercises and R knee pain . He is doing better with ability to step up and to balance w/step over objects. Improved posture after miguel test stretch Physical Therapy Plan Frequency and Duration Frequency of Treatment 2x/Week Duration of Treatment 3 months Plan of Care Start Date 12/01/20 Plan of Care End Date 03/02/21 Next Visit Focus/Plan Next Note Type Treatment Note Next Visit Plan Aquatic: initiate prone adaptive crawl, progress ther ex in shallow and deep for strengthening core stabilization. Land: continue to work on core and hip strengthening
--- NOTE | 2021-02-02 09:05 | PT.OTN ---
Current Diagnoses Other chronic pain (02/02/21) Low back pain (02/02/21) Muscle weakness (generalized) (02/02/21) Difficulty in walking, not elsewhere classified (02/02/21) Unsteadiness on feet (02/02/21) Abnormal posture (02/02/21) Physical Therapy Treatment Note PT-OP-A Visit Information Start: 11/27/20 13:42 Freq: Status: Active Protocol: Document 02/02/21 09:00 [facility] (Rec: 02/02/21 09:04 [facility] [id number]) Out-Patient Physical Therapy Visit Information Visit Information Visit Type Treatment Note Visit Note 10/21 Visit Start Time 08:16 Visit Stop Time 08:59 Total Visit Minutes 43 Visit Number 17 Number of FRONT ATTENDANT Visits 0 PT-OP-B Current Condition Start: 11/27/20 13:42 Freq: Status: Active Protocol: Document 12/01/20 14:05 [facility] (Rec: 12/01/20 15:18 [facility] [id number]) Current Condition History of Current Condition Onset Date worse over the past year Current Complaints balance, gait History of Current Condition Pt reports increasing difficulty with walking over uneven surfaces and has trouble w/stairs and curbs. In random intervals, R and LLE feels like they may give out ( mostly knee giving out sensation). Pt reports B foot pain that is gout like. pt reprots knees hurt at night with occasionally that discomfort being enough to wake him. Pt reports over the past year, inc difficulty with getting out of stair and feeling imbalance when first getting up. Pt reports LB is stiff and he is discouraged because he is trying to do his regular old PT exercises and trying tto walk but it hurts like hell to his legs, hips, knees, feet. He does stretches including bending over. He feels like his walk is a jarring walk and cannot walk on uneven ground. He has to hold a railing when stepping down and feels really uncertain. Pt reports he has been in pain since he was 22 years old. he does not want palliative care. Pt feels like he is occ feeling anticipatory pain and thinks he may have to talk to a psychiatrist. Pt got an electric bike with a low step through and he is scared to get on it. Pt reports he also can't get off the ground w/o pulling up on something. Pt can't get his leg up underneath himself and cannot lift his leg. Prior Treatments and Tests PT in past Treatment Goals Patient/Caregiver Goals Be able to walk distances & be able to walk a trail, be more confident about balance, have an analysis of gaito understand dysfunction, be able to go up/down stairs w/o feeling unstable Personal Factors Other Personal Factors That May Effect B TSA, R TKA, mult hand Therapy/Recovery surgeries, drainage of R hallux & removal of gout crystals, T11-12, L2-3, 3-4, 4 -5 lami and L4-5 fusion PT-OP-C Subjective Start: 11/27/20 13:42 Freq: Status: Active Protocol: Document 02/02/21 09:00 [facility] (Rec: 02/02/21 09:04 [facility] [id number]) OP-PT Subjective Patient Comments Patient Comments Pt reports feeling okay today PT-OP-D Balance Start: 11/27/20 13:42 Freq: Status: Active Protocol: Document 12/01/20 14:05 [facility] (Rec: 12/01/20 15:18 [facility] [id number]) Balance Tests Single Limb Standing Single Limb- Right 2sec w./lat lean & UEs uses Single Limb- Left 5 sec w./lat lean & UEs uses PT-OP-E Functional Tests Start: 11/27/20 13:42 Freq: Status: Active Protocol: Document 01/07/21 09:51 [facility] (Rec: 01/07/21 11:47 [facility] [id number]) Functional Tests 6 Minute Walk Test Distance 1075ft 30 Second Sit to Stand Test Score 8x Five Times Sit to Stand Test Score 18 sec PT-OP-G Mobility & Gait Start: 11/27/20 13:42 Freq: Status: Active Protocol: Document 12/01/20 14:05 [facility] (Rec: 12/01/20 15:18 [facility] [id number]) OP Mobility Evaluation Bed Mobility Rolling able to roll Supine to and from Sit required assist to sit up Transfers Sit to Stand slow and very slow to start moving OP Gait Assessment Comments Gait Comments lat lean w/WB R>L PT-OP-J Posture/Palpation/Skin Start: 11/27/20 13:42 Freq: Status: Active Protocol: Document 12/01/20 14:05 [facility] (Rec: 12/01/20 15:18 [facility] [id number]) Posture Evaluation Comments Posture Comments fwd flex posture PT-OP-M Strength Start: 11/27/20 13:42 Freq: Status: Active Protocol: Document 01/07/21 09:51 [facility] (Rec: 01/07/21 11:47 [facility] [id number]) Hip Strength Hip Manual Muscle Testing Right Flexion (L2) 3- Fair- Extension (S1) 3- Fair- Abduction 3- Fair- External Rotation 4- Good- Internal Rotation 3+ Fair+ Comments pain in post knee w/hip ext; pain in hip w/flex & IR Left Flexion (L2) 3 Fair Extension (S1) 3- Fair- Abduction 3- Fair- External Rotation 4 Good Internal Rotation 4 Good Knee Strength Knee Manual Muscle Testing Right Flexion (S2) 5 Normal Extension (L3) 4+ Good+ Left Flexion (S2) 4+ Good+ Extension (L3) 4+ Good+ Ankle/Foot Strength Ankle and Foot Manual Muscle Testing Right Dorsiflexion (L4) 5 Normal Plantarflexion (S1) 5 Normal Left Dorsiflexion (L4) 5 Normal Plantarflexion (S1) 5 Normal Comments PF tested seated PT-OP-Q Treatments Start: 11/27/20 13:42 Freq: Status: Active Protocol: Document 02/02/21 09:00 [facility] (Rec: 02/02/21 09:04 [facility] [id number]) Gym Equipment Therapeutic Ball seated Ball Size/Color 75cm Body Position Sitting Comments 1. pelvic circles x20 B 2.knee ext x12 B w/slider 3. pelvic tilts x30 Neuro Re-Education Treatment Balance Activities foam pad Comments 1.step up then over w/tap then back tap repeat x10 B 2. side step up then over x10 B hurdles Comments step over hurdles w/lat step x8 B single carla tap side/side over x10 B carla up single hurdel tap fwd/back x10 B carla on side Tandem Details stance trials B PT-OP-S Aquatic Treatment Start: 01/14/21 14:10 Freq: Status: Active Protocol: Document 01/21/21 14:05 [facility] (Rec: 01/21/21 14:21 [facility] [id number]) Aquatics Treatment Pool Entry/Exit Pool Entry/Exit Method Stairs Assistance Independent Water Walking step up/down Water Level Neck Level Walking Equipment 8 box Level of Assistance Verbal Cues Comments forward and side fwd, bck, side, may, may kick Water Level Chest Level Level of Assistance Verbal Cues Comments no UE support Lower Extremity Exercises aqua bike Water Level Chest Level Reps/Duration 5 min Comments slow pace hamstring curl Reps/Duration 10x Comments no UE support hip flex/ext, ab/ad, circles, heel raise, toe raise Body Position Standing Reps/Duration 10x ea Comments no UE support Upper Extremity Exercises Hor ab/ad with core stab Body Position Standing Water Level Chest Level Reps/Duration 10x Balance SLS Reps/Duration 30 ea LE [place] Activities [place] Activities Bicycle,Bicycle Backwards, Cross Country,Running,Sit Kicks Equipment flotation belt, noodle in UE's bckwd Duration 12 min PT-OP-T Assessment and Plan Start: 11/27/20 13:42 Freq: Status: Active Protocol: Document 02/02/21 09:00 [facility] (Rec: 02/02/21 09:04 [facility] [id number]) Physical Therapy Assessment Goals activities Short Term Goal (STG) Pt will be able to go up and down a curb and stairs w/o LOB w/o UE support. 01/07-pt reports improved STG Duration 01/31/21 Rn Medical Surgical Goal (LTG) Pt will be able to go for 1 mile walks with no more than 4 /10 pain. LTG Duration 03/02/21 balance Short Term Goal (STG) Pt will be able to do SLS 10 sec B 01/07-L 15 sec, R 2 sec STG Duration 01/31/21 Rn Medical Surgical Goal (LTG) Pt will be able to score at least 25/30 on FGA to show improved balance and low risk for falls. LTG Duration 03/02/21 strength Short Term Goal (STG) Pt will be indep w/ HEP STG Duration achieved progressing as able Rn Medical Surgical Goal (LTG) Pt will score at least 1 full MMT grade higher on all LE MMT in order to improve pt joint stability and dec pain and improve strength to improve pt 's ease w/activities. 01/07-improved LTG Duration 03/02/21 sit to stand Short Term Goal (STG) Pt will improve 5x sit to stand test to no greater than 15 sec (norm 12 sec) to show improved functional ability. 01/07-1 sec improvement STG Duration 01/31/21 Rn Medical Surgical Goal (LTG) Pt will improve 30 sec sit to stand score to 12x to show improved balance and LE strength LTG Duration 03/02/21 6 min walk Short Term Goal (STG) Pt will be able to complete 6 min walk test without requring a rest break STG Duration achieved Rn Medical Surgical Goal (LTG) Pt waill be able to walk 1171ft with no more than 2/10 pain after to show more age related norms for functional abiltiy in gait. 01/07-improved to 1070ft LTG Duration 03/03/21 Assessment Summary Assessment Pt tolerated exercise well today and did not c/o pain with activity today even when asked mult times re: pain.He showed improved stability with balance tasks. Physical Therapy Plan Frequency and Duration Frequency of Treatment 2x/Week Duration of Treatment 3 months Plan of Care Start Date 12/01/20 Plan of Care End Date 03/02/21 Next Visit Focus/Plan Next Note Type Treatment Note Next Visit Plan Aquatic: initiate prone adaptive crawl, progress ther ex in shallow and deep for strengthening core stabilization. Land: continue to work on core and hip strengthening; PN next clinic appt
--- NOTE | 2021-02-04 13:53 | PT.OTN ---
Current Diagnoses Other chronic pain (02/04/21) Low back pain (02/04/21) Muscle weakness (generalized) (02/04/21) Difficulty in walking, not elsewhere classified (02/04/21) Unsteadiness on feet (02/04/21) Abnormal posture (02/04/21) Physical Therapy Treatment Note PT-OP-A Visit Information Start: 11/27/20 13:42 Freq: Status: Active Protocol: Document 02/04/21 13:41 [facility] (Rec: 02/04/21 13:53 [facility] [id number]) Out-Patient Physical Therapy Visit Information Visit Information Visit Type Aquatic Treatment Note Visit Note 11/21 Visit Start Time 11:00 Visit Stop Time 11:45 Total Visit Minutes 45 Visit Number 18 Number of ETL SOFTWARE ENGINEER Visits 1 PT-OP-B Current Condition Start: 11/27/20 13:42 Freq: Status: Active Protocol: Document 12/01/20 14:05 [facility] (Rec: 12/01/20 15:18 [facility] [id number]) Current Condition History of Current Condition Onset Date worse over the past year Current Complaints balance, gait History of Current Condition Pt reports increasing difficulty with walking over uneven surfaces and has trouble w/stairs and curbs. In random intervals, R and LLE feels like they may give out ( mostly knee giving out sensation). Pt reports B foot pain that is gout like. pt reprots knees hurt at night with occasionally that discomfort being enough to wake him. Pt reports over the past year, inc difficulty with getting out of stair and feeling imbalance when first getting up. Pt reports LB is stiff and he is discouraged because he is trying to do his regular old PT exercises and trying tto walk but it hurts like hell to his legs, hips, knees, feet. He does stretches including bending over. He feels like his walk is a jarring walk and cannot walk on uneven ground. He has to hold a railing when stepping down and feels really uncertain. Pt reports he has been in pain since he was 22 years old. he does not want palliative care. Pt feels like he is occ feeling anticipatory pain and thinks he may have to talk to a psychiatrist. Pt got an electric bike with a low step through and he is scared to get on it. Pt reports he also can't get off the ground w/o pulling up on something. Pt can't get his leg up underneath himself and cannot lift his leg. Prior Treatments and Tests PT in past Treatment Goals Patient/Caregiver Goals Be able to walk distances & be able to walk a trail, be more confident about balance, have an analysis of gaito understand dysfunction, be able to go up/down stairs w/o feeling unstable Personal Factors Other Personal Factors That May Effect B TSA, R TKA, mult hand Therapy/Recovery surgeries, drainage of R hallux & removal of gout crystals, T11-12, L2-3, 3-4, 4 -5 lami and L4-5 fusion PT-OP-C Subjective Start: 11/27/20 13:42 Freq: Status: Active Protocol: Document 02/04/21 13:41 [facility] (Rec: 02/04/21 13:53 [facility] [id number]) OP-PT Subjective Patient Comments Patient Comments Pt reports some knee pain this morning but nothing bad. He states he is enjoying AT. PT-OP-D Balance Start: 11/27/20 13:42 Freq: Status: Active Protocol: Document 12/01/20 14:05 [facility] (Rec: 12/01/20 15:18 [facility] [id number]) Balance Tests Single Limb Standing Single Limb- Right 2sec w./lat lean & UEs uses Single Limb- Left 5 sec w./lat lean & UEs uses PT-OP-E Functional Tests Start: 11/27/20 13:42 Freq: Status: Active Protocol: Document 01/07/21 09:51 [facility] (Rec: 01/07/21 11:47 [facility] [id number]) Functional Tests 6 Minute Walk Test Distance 1075ft 30 Second Sit to Stand Test Score 8x Five Times Sit to Stand Test Score 18 sec PT-OP-G Mobility & Gait Start: 11/27/20 13:42 Freq: Status: Active Protocol: Document 12/01/20 14:05 [facility] (Rec: 12/01/20 15:18 [facility] [id number]) OP Mobility Evaluation Bed Mobility Rolling able to roll Supine to and from Sit required assist to sit up Transfers Sit to Stand slow and very slow to start moving OP Gait Assessment Comments Gait Comments lat lean w/WB R>L PT-OP-J Posture/Palpation/Skin Start: 11/27/20 13:42 Freq: Status: Active Protocol: Document 12/01/20 14:05 [facility] (Rec: 12/01/20 15:18 [facility] [id number]) Posture Evaluation Comments Posture Comments fwd flex posture PT-OP-M Strength Start: 11/27/20 13:42 Freq: Status: Active Protocol: Document 01/07/21 09:51 [facility] (Rec: 01/07/21 11:47 [facility] [id number]) Hip Strength Hip Manual Muscle Testing Right Flexion (L2) 3- Fair- Extension (S1) 3- Fair- Abduction 3- Fair- External Rotation 4- Good- Internal Rotation 3+ Fair+ Comments pain in post knee w/hip ext; pain in hip w/flex & IR Left Flexion (L2) 3 Fair Extension (S1) 3- Fair- Abduction 3- Fair- External Rotation 4 Good Internal Rotation 4 Good Knee Strength Knee Manual Muscle Testing Right Flexion (S2) 5 Normal Extension (L3) 4+ Good+ Left Flexion (S2) 4+ Good+ Extension (L3) 4+ Good+ Ankle/Foot Strength Ankle and Foot Manual Muscle Testing Right Dorsiflexion (L4) 5 Normal Plantarflexion (S1) 5 Normal Left Dorsiflexion (L4) 5 Normal Plantarflexion (S1) 5 Normal Comments PF tested seated PT-OP-Q Treatments Start: 11/27/20 13:42 Freq: Status: Active Protocol: Document 02/02/21 09:00 [facility] (Rec: 02/02/21 09:04 [facility] [id number]) Gym Equipment Therapeutic Ball seated Ball Size/Color 75cm Body Position Sitting Comments 1. pelvic circles x20 B 2.knee ext x12 B w/slider 3. pelvic tilts x30 Neuro Re-Education Treatment Balance Activities foam pad Comments 1.step up then over w/tap then back tap repeat x10 B 2. side step up then over x10 B hurdles Comments step over hurdles w/lat step x8 B single carla tap side/side over x10 B carla up single hurdel tap fwd/back x10 B carla on side Tandem Details stance trials B PT-OP-S Aquatic Treatment Start: 01/14/21 14:10 Freq: Status: Active Protocol: Document 02/04/21 13:41 [facility] (Rec: 02/04/21 13:53 [facility] [id number]) Aquatics Treatment Pool Entry/Exit Pool Entry/Exit Method Stairs Assistance Independent Water Walking fwd, bck, may, kick Water Level Chest Level Level of Assistance Verbal Cues Comments no UE support Lower Extremity Exercises hip flex/ext, ab/ad, circles, heel raise, toe raise Body Position Standing Reps/Duration 10x ea Comments no UE support Lower Extremity Stretches HS, Hip flexors Details at wall Body Position Standing Reps/Duration 30 x2 B Upper Extremity Exercises Hor ab/ad with core stab Body Position Standing Water Level Chest Level Reps/Duration 10x Spinal Exercises rotations at wall Body Position Sitting Water Level Chest Level Equipment BBs held underwater Reps/Duration 10 rotations x2 noodle pull down at wall Body Position Sitting Water Level Chest Level Equipment Large Noodle Reps/Duration 10 x 2 Balance SLS Reps/Duration 30 ea LE [place] Activities [place] Activities Bicycle,Bicycle Backwards, Cross [place],Running,Sit Kicks Other Activities pendulum Equipment flotation belt, noodle in UE's bckwd Duration 15 min PT-OP-T Assessment and Plan Start: 11/27/20 13:42 Freq: Status: Active Protocol: Document 02/04/21 13:41 (Rec: 02/04/21 13:53 [id number]) Physical Therapy Assessment Rehab Potential Rehabilitation Potential Good Evaluation Complexity Number of Personal Factors/Comorbidities 3 or More Number of Body Systems Impaired 4 or More Clinical Presentation at Evaluation Evolving Goals activities Short Term Goal (STG) Pt will be able to go up and down a curb and stairs w/o LOB w/o UE support. 01/07-pt reports improved STG Duration 01/31/21 Engineer Automated Equipment Goal (LTG) Pt will be able to go for 1 mile walks with no more than 4 /10 pain. LTG Duration 03/02/21 balance Short Term Goal (STG) Pt will be able to do SLS 10 sec B 01/07-L 15 sec, R 2 sec STG Duration 01/31/21 Engineer Automated Equipment Goal (LTG) Pt will be able to score at least 25/30 on FGA to show improved balance and low risk for falls. LTG Duration 03/02/21 strength Short Term Goal (STG) Pt will be indep w/ HEP STG Duration achieved progressing as able Prison Goal (LTG) Pt will score at least 1 full MMT grade higher on all LE MMT in order to improve pt joint stability and dec pain and improve strength to improve pt 's ease w/activities. 01/07-improved LTG Duration 03/02/21 sit to stand Short Term Goal (STG) Pt will improve 5x sit to stand test to no greater than 15 sec (norm 12 sec) to show improved functional ability. 01/07-1 sec improvement STG Duration 01/31/21 Prison Goal (LTG) Pt will improve 30 sec sit to stand score to 12x to show improved balance and LE strength LTG Duration 03/02/21 6 min walk Short Term Goal (STG) Pt will be able to complete 6 min walk test without requring a rest break STG Duration achieved Engineer Automated Equipment Goal (LTG) Pt waill be able to walk 1171ft with no more than 2/10 pain after to show more age related norms for functional abiltiy in gait. 01/07-improved to 1070ft LTG Duration 03/03/21 Assessment Summary Assessment Pt tolerated exercises well. Noted some shoulder pain in deep water which was taken care of with activity modification. Pt states he wants to work on flexibility so possible incorporate Chi during AT treatment session. Physical Therapy Plan Frequency and Duration Frequency of Treatment 2x/Week Duration of Treatment 3 months Plan of Care Start Date 12/01/20 Plan of Care End Date 03/02/21 Therapeutic Interventions Therapeutic Interventions Balance Training,Home Exercise Program,Manual Therapy, Patient/Caregiver Education, Self-Care/Home Management,Soft Tissue Mobilization, Therapeutic Activities, Therapeutic Exercises Next Visit Focus/Plan Next Note Type Treatment Note Next Visit Plan Aquatic: initiate prone adaptive crawl, progress ther ex in shallow and deep for strengthening core stabilization. Land: continue to work on core and hip strengthening; PN next clinic appt
--- NOTE | 2021-02-09 14:35 | PT.OTN ---
Current Diagnoses Other chronic pain (02/09/21) Low back pain (02/09/21) Muscle weakness (generalized) (02/09/21) Difficulty in walking, not elsewhere classified (02/09/21) Unsteadiness on feet (02/09/21) Abnormal posture (02/09/21) Physical Therapy Treatment Note PT-OP-A Visit Information Start: 11/27/20 13:42 Freq: Status: Active Protocol: Document 02/09/21 13:01 [facility] (Rec: 02/09/21 14:35 [facility] [id number]) Out-Patient Physical Therapy Visit Information Visit Information Visit Type Treatment Note Visit Note 03/23 Visit Start Time 13:00 Visit Stop Time 13:45 Total Visit Minutes 45 Visit Number 19 Number of SILICA DRY PRESS HELPER Visits 0 PT-OP-B Current Condition Start: 11/27/20 13:42 Freq: Status: Active Protocol: Document 12/01/20 14:05 [facility] (Rec: 12/01/20 15:18 [facility] [id number]) Current Condition History of Current Condition Onset Date worse over the past year Current Complaints balance, gait History of Current Condition Pt reports increasing difficulty with walking over uneven surfaces and has trouble w/stairs and curbs. In random intervals, R and LLE feels like they may give out ( mostly knee giving out sensation). Pt reports B foot pain that is gout like. pt reprots knees hurt at night with occasionally that discomfort being enough to wake him. Pt reports over the past year, inc difficulty with getting out of stair and feeling imbalance when first getting up. Pt reports LB is stiff and he is discouraged because he is trying to do his regular old PT exercises and trying tto walk but it hurts like hell to his legs, hips, knees, feet. He does stretches including bending over. He feels like his walk is a jarring walk and cannot walk on uneven ground. He has to hold a railing when stepping down and feels really uncertain. Pt reports he has been in pain since he was 22 years old. he does not want palliative care. Pt feels like he is occ feeling anticipatory pain and thinks he may have to talk to a psychiatrist. Pt got an electric bike with a low step through and he is scared to get on it. Pt reports he also can't get off the ground w/o pulling up on something. Pt can't get his leg up underneath himself and cannot lift his leg. Prior Treatments and Tests PT in past Treatment Goals Patient/Caregiver Goals Be able to walk distances & be able to walk a trail, be more confident about balance, have an analysis of gaito understand dysfunction, be able to go up/down stairs w/o feeling unstable Personal Factors Other Personal Factors That May Effect B TSA, R TKA, mult hand Therapy/Recovery surgeries, drainage of R hallux & removal of gout crystals, T11-12, L2-3, 3-4, 4 -5 lami and L4-5 fusion PT-OP-C Subjective Start: 11/27/20 13:42 Freq: Status: Active Protocol: Document 02/09/21 13:01 [facility] (Rec: 02/09/21 14:35 [facility] [id number]) OP-PT Subjective Patient Comments Patient Comments Pt reprots he feels like aquatic is helping Patient Reported Progress Improving PT-OP-D Balance Start: 11/27/20 13:42 Freq: Status: Active Protocol: Document 12/01/20 14:05 [facility] (Rec: 12/01/20 15:18 [facility] [id number]) Balance Tests Single Limb Standing Single Limb- Right 2sec w./lat lean & UEs uses Single Limb- Left 5 sec w./lat lean & UEs uses PT-OP-E Functional Tests Start: 11/27/20 13:42 Freq: Status: Active Protocol: Document 02/09/21 13:01 [facility] (Rec: 02/09/21 14:35 [facility] [id number]) Functional Tests 6 Minute Walk Test Distance 1045ft Comments 4/10 pain 30 Second Sit to Stand Test Score 8x Five Times Sit to Stand Test Score 20 sec PT-OP-G Mobility & Gait Start: 11/27/20 13:42 Freq: Status: Active Protocol: Document 12/01/20 14:05 [facility] (Rec: 12/01/20 15:18 [facility] [id number]) OP Mobility Evaluation Bed Mobility Rolling able to roll Supine to and from Sit required assist to sit up Transfers Sit to Stand slow and very slow to start moving OP Gait Assessment Comments Gait Comments lat lean w/WB R>L PT-OP-J Posture/Palpation/Skin Start: 11/27/20 13:42 Freq: Status: Active Protocol: Document 12/01/20 14:05 [facility] (Rec: 12/01/20 15:18 [facility] [id number]) Posture Evaluation Comments Posture Comments fwd flex posture PT-OP-M Strength Start: 11/27/20 13:42 Freq: Status: Active Protocol: Document 02/09/21 13:01 [facility] (Rec: 02/09/21 14:35 [facility] [id number]) Hip Strength Hip Manual Muscle Testing Right Flexion (L2) 3+ Fair+ Extension (S1) 3 Fair Abduction 3 Fair External Rotation 4 Good Internal Rotation 4 Good Comments pain in post knee w/hip ext; pain in hip w/flex & IR Left Flexion (L2) 4 Good Extension (S1) 3 Fair Abduction 3 Fair External Rotation 4+ Good+ Internal Rotation 4 Good Knee Strength Knee Manual Muscle Testing Right Flexion (S2) 5 Normal Extension (L3) 4+ Good+ Left Flexion (S2) 4+ Good+ Extension (L3) 5 Normal Ankle/Foot Strength Ankle and Foot Manual Muscle Testing Right Dorsiflexion (L4) 5 Normal Plantarflexion (S1) 5 Normal Left Dorsiflexion (L4) 5 Normal Plantarflexion (S1) 5 Normal Comments PF tested seated PT-OP-Q Treatments Start: 11/27/20 13:42 Freq: Status: Active Protocol: Document 02/09/21 13:01 [facility] (Rec: 02/09/21 14:35 [facility] [id number]) Therapeutic Exercises Sidelying Exercises hip abd Sidelying Exercise Name cues for no rolling back Side bilateral Reps/Minutes 10 Standing Exercises backwards walk Side bilateral Equipment Used yellow band Reps/Minutes 4x20ft Hip Ext/Abd diagonial Standing Exercise Name cues to keep foot close to the ground Side bilateral Equipment Used yellow band Reps/Minutes 2x10 Comments cues for comfortable range Neuro Re-Education Treatment Balance Activities SLS Details trials B bosu Details standing balance PT-OP-S Aquatic Treatment Start: 01/14/21 14:10 Freq: Status: Active Protocol: Document 02/04/21 13:41 [facility] (Rec: 02/04/21 13:53 [facility] [id number]) Aquatics Treatment Pool Entry/Exit Pool Entry/Exit Method Stairs Assistance Independent Water Walking fwd, bck, may, kick Water Level Chest Level Level of Assistance Verbal Cues Comments no UE support Lower Extremity Exercises hip flex/ext, ab/ad, circles, heel raise, toe raise Body Position Standing Reps/Duration 10x ea Comments no UE support Lower Extremity Stretches HS, Hip flexors Details at wall Body Position Standing Reps/Duration 30 x2 B Upper Extremity Exercises Hor ab/ad with core stab Body Position Standing Water Level Chest Level Reps/Duration 10x Spinal Exercises rotations at wall Body Position Sitting Water Level Chest Level Equipment BBs held underwater Reps/Duration 10 rotations x2 noodle pull down at wall Body Position Sitting Water Level Chest Level Equipment Large Noodle Reps/Duration 10 x 2 Balance SLS Reps/Duration 30 ea LE [place] Activities [place] Activities Bicycle,Bicycle Backwards, Cross Country,Running,Sit Kicks Other Activities pendulum Equipment flotation belt, noodle in UE's bckwd Duration 15 min PT-OP-T Assessment and Plan Start: 11/27/20 13:42 Freq: Status: Active Protocol: Document 02/09/21 13:01 [facility] (Rec: 02/09/21 14:35 [facility] [id number]) Physical Therapy Assessment Goals activities Short Term Goal (STG) Pt will be able to go up and down a curb and stairs w/o LOB w/o UE support. 01/07-pt reports improved STG Duration achieved but pt feels off balance Senior Care Goal (LTG) Pt will be able to go for 1 mile walks with no more than 4 /10 pain. LTG Duration 03/02/21 balance Short Term Goal (STG) Pt will be able to do SLS 10 sec B 01/07-L 15 sec, R 2 sec 02/09->30 sec L, R 13 sec STG Duration achieved Senior Care Goal (LTG) Pt will be able to score at least 25/30 on FGA to show improved balance and low risk for falls. LTG Duration 03/02/21 strength Short Term Goal (STG) Pt will be indep w/ HEP STG Duration achieved progressing as able Raw Stock Dyeing Machine Tender Goal (LTG) Pt will score at least 1 full MMT grade higher on all LE MMT in order to improve pt joint stability and dec pain and improve strength to improve pt 's ease w/activities. 01/07-improved LTG Duration 03/02/21 sit to stand Short Term Goal (STG) Pt will improve 5x sit to stand test to no greater than 15 sec (norm 12 sec) to show improved functional ability. 01/07-1 sec improvement STG Duration 01/31/21 Senior Care Goal (LTG) Pt will improve 30 sec sit to stand score to 12x to show improved balance and LE strength LTG Duration 03/02/21 6 min walk Short Term Goal (STG) Pt will be able to complete 6 min walk test without requring a rest break STG Duration achieved Senior Care Goal (LTG) Pt waill be able to walk 1171ft with no more than 2/10 pain after to show more age related norms for functional abiltiy in gait. 01/07-improved to 1070ft 02/09-1035ft 4/10 pain LTG Duration 03/03/21 Assessment Summary Assessment Pt is making excellent progress w/PT and is shwoing significant improved strength and functional ability since last progress note. He still does have pain that limits him w/activities and signficant glute weakness. He showed much improvement w/balance today though. Physical Therapy Plan Frequency and Duration Frequency of Treatment 2x/Week Duration of Treatment 3 months Plan of Care Start Date 12/01/20 Plan of Care End Date 03/02/21 Next Visit Focus/Plan Next Note Type Treatment Note Next Visit Plan Aquatic: initiate prone adaptive crawl, progress ther ex in shallow and deep for strengthening core stabilization. Land: continue to work on core and hip strengthening
--- NOTE | 2021-02-11 10:15 | PT.OTN ---
Current Diagnoses Other chronic pain (02/16/21) Low back pain (02/16/21) Muscle weakness (generalized) (02/16/21) Difficulty in walking, not elsewhere classified (02/16/21) Unsteadiness on feet (02/16/21) Abnormal posture (02/16/21) Physical Therapy Treatment Note PT-OP-A Visit Information Start: 11/27/20 13:42 Freq: Status: Active Protocol: Document 02/16/21 11:43 [facility] (Rec: 02/16/21 11:56 [facility] [id number]) Out-Patient Physical Therapy Visit Information Visit Information Visit Type Treatment Note Visit Note 05/21 Visit Start Time 09:52 Visit Stop Time 10:30 Total Visit Minutes 38 Visit Number 20 Number of TONNAGE COMPILATION CLERK Visits 0 PT-OP-B Current Condition Start: 11/27/20 13:42 Freq: Status: Active Protocol: Document 12/01/20 14:05 [facility] (Rec: 12/01/20 15:18 [facility] [id number]) Current Condition History of Current Condition Onset Date worse over the past year Current Complaints balance, gait History of Current Condition Pt reports increasing difficulty with walking over uneven surfaces and has trouble w/stairs and curbs. In random intervals, R and LLE feels like they may give out ( mostly knee giving out sensation). Pt reports B foot pain that is gout like. pt reprots knees hurt at night with occasionally that discomfort being enough to wake him. Pt reports over the past year, inc difficulty with getting out of stair and feeling imbalance when first getting up. Pt reports LB is stiff and he is discouraged because he is trying to do his regular old PT exercises and trying tto walk but it hurts like hell to his legs, hips, knees, feet. He does stretches including bending over. He feels like his walk is a jarring walk and cannot walk on uneven ground. He has to hold a railing when stepping down and feels really uncertain. Pt reports he has been in pain since he was 22 years old. he does not want palliative care. Pt feels like he is occ feeling anticipatory pain and thinks he may have to talk to a psychiatrist. Pt got an electric bike with a low step through and he is scared to get on it. Pt reports he also can't get off the ground w/o pulling up on something. Pt can't get his leg up underneath himself and cannot lift his leg. Prior Treatments and Tests PT in past Treatment Goals Patient/Caregiver Goals Be able to walk distances & be able to walk a trail, be more confident about balance, have an analysis of gaito understand dysfunction, be able to go up/down stairs w/o feeling unstable Personal Factors Other Personal Factors That May Effect B TSA, R TKA, mult hand Therapy/Recovery surgeries, drainage of R hallux & removal of gout crystals, T11-12, L2-3, 3-4, 4 -5 lami and L4-5 fusion PT-OP-C Subjective Start: 11/27/20 13:42 Freq: Status: Active Protocol: Document 02/16/21 11:43 [facility] (Rec: 02/16/21 11:56 [facility] [id number]) OP-PT Subjective Patient Comments Patient Comments Pt reports overall doing well today PT-OP-D Balance Start: 11/27/20 13:42 Freq: Status: Active Protocol: Document 12/01/20 14:05 [facility] (Rec: 12/01/20 15:18 [facility] [id number]) Balance Tests Single Limb Standing Single Limb- Right 2sec w./lat lean & UEs uses Single Limb- Left 5 sec w./lat lean & UEs uses PT-OP-E Functional Tests Start: 11/27/20 13:42 Freq: Status: Active Protocol: Document 02/09/21 13:01 [facility] (Rec: 02/09/21 14:35 [facility] [id number]) Functional Tests 6 Minute Walk Test Distance 1045ft Comments 4/10 pain 30 Second Sit to Stand Test Score 8x Five Times Sit to Stand Test Score 20 sec PT-OP-G Mobility & Gait Start: 11/27/20 13:42 Freq: Status: Active Protocol: Document 12/01/20 14:05 [facility] (Rec: 12/01/20 15:18 [facility] [id number]) OP Mobility Evaluation Bed Mobility Rolling able to roll Supine to and from Sit required assist to sit up Transfers Sit to Stand slow and very slow to start moving OP Gait Assessment Comments Gait Comments lat lean w/WB R>L PT-OP-J Posture/Palpation/Skin Start: 11/27/20 13:42 Freq: Status: Active Protocol: Document 12/01/20 14:05 [facility] (Rec: 12/01/20 15:18 [facility] [id number]) Posture Evaluation Comments Posture Comments fwd flex posture PT-OP-M Strength Start: 11/27/20 13:42 Freq: Status: Active Protocol: Document 02/09/21 13:01 [facility] (Rec: 02/09/21 14:35 [facility] [id number]) Hip Strength Hip Manual Muscle Testing Right Flexion (L2) 3+ Fair+ Extension (S1) 3 Fair Abduction 3 Fair External Rotation 4 Good Internal Rotation 4 Good Comments pain in post knee w/hip ext; pain in hip w/flex & IR Left Flexion (L2) 4 Good Extension (S1) 3 Fair Abduction 3 Fair External Rotation 4+ Good+ Internal Rotation 4 Good Knee Strength Knee Manual Muscle Testing Right Flexion (S2) 5 Normal Extension (L3) 4+ Good+ Left Flexion (S2) 4+ Good+ Extension (L3) 5 Normal Ankle/Foot Strength Ankle and Foot Manual Muscle Testing Right Dorsiflexion (L4) 5 Normal Plantarflexion (S1) 5 Normal Left Dorsiflexion (L4) 5 Normal Plantarflexion (S1) 5 Normal Comments PF tested seated PT-OP-Q Treatments Start: 11/27/20 13:42 Freq: Status: Active Protocol: Document 02/16/21 11:43 [facility] (Rec: 02/16/21 11:56 [facility] [id number]) Gym Equipment Therapeutic Ball seated Ball Size/Color 75cm Body Position Sitting Comments 1. pelvic circles x20 B 2.knee ext x20 B w/slider 3. marches x12 B Therapeutic Exercises Standing Exercises step up Standing Exercise Name step down 2 in w/[employer]ESSER Side bilateral Reps/Minutes 15 sidestep Standing Exercise Name step up Side bilateral Equipment Used 4 in Reps/Minutes 15 Manual Therapy Treatment Soft Tissue Mobilization QL Body Location R QL & ES Mobilization Type Rolling Intensity/Depth Moderate Body Position Sidelying Comments w/c/r into ant dep Neuro Re-Education Treatment Balance Activities foam pad Details attempted step downs but too difficult SLS Details on foam B PT-OP-S Aquatic Treatment Start: 01/14/21 14:10 Freq: Status: Active Protocol: Document 02/11/21 10:15 [facility] (Rec: 02/18/21 08:12 [facility] [id number]) Aquatics Treatment Pool Entry/Exit Pool Entry/Exit Method Stairs Assistance Independent Water Walking step up/down Water Level Neck Level Walking Equipment 8 box Level of Assistance Verbal Cues Comments forward and side, chest level fwd, bck, side, may, kick Water Level Chest Level Walking Equipment Ankle Floats Level of Assistance Verbal Cues Comments no UE support Lower Extremity Exercises hamstring curl Reps/Duration 10x Comments no UE support LE stretches Details HS, ITB, groin, quad Body Position Standing Water Level Chest Level Equipment Small Noodle hip flex/ext, ab/ad, circles, heel raise, toe raise Body Position Standing Reps/Duration 10x ea Comments no UE support Lower Extremity Stretches HS, Hip flexors Details at wall Body Position Standing Reps/Duration 30 x2 B Upper Extremity Exercises Hor ab/ad with core stab Body Position Standing Water Level Chest Level Reps/Duration 10x Spinal Exercises deep water hang Body Position Standing Water Level [place] Equipment pool edge Reps/Duration 30x2 [place] Activities [place] Activities Bicycle,Bicycle Backwards, Cross [place],Running,Sit Kicks Other Activities pendulum Deep water DLS with med barbells Equipment flotation belt, noodle in UE's bckwd Duration 15 min PT-OP-T Assessment and Plan Start: 11/27/20 13:42 Freq: Status: Active Protocol: Document 02/16/21 11:43 [facility] (Rec: 02/16/21 11:56 [facility] [id number]) Physical Therapy Assessment Goals activities Short Term Goal (STG) Pt will be able to go up and down a curb and stairs w/o LOB w/o UE support. 01/07-pt reports improved STG Duration achieved but pt feels off balance Jail Goal (LTG) Pt will be able to go for 1 mile walks with no more than 4 /10 pain. LTG Duration 03/02/21 balance Short Term Goal (STG) Pt will be able to do SLS 10 sec B 01/07-L 15 sec, R 2 sec 02/09->30 sec L, R 13 sec STG Duration achieved [facility] Goal (LTG) Pt will be able to score at least 25/30 on FGA to show improved balance and low risk for falls. LTG Duration 03/02/21 strength Short Term Goal (STG) Pt will be indep w/ HEP STG Duration achieved progressing as able Jail Goal (LTG) Pt will score at least 1 full MMT grade higher on all LE MMT in order to improve pt joint stability and dec pain and improve strength to improve pt 's ease w/activities. 01/07-improved LTG Duration 03/02/21 sit to stand Short Term Goal (STG) Pt will improve 5x sit to stand test to no greater than 15 sec (norm 12 sec) to show improved functional ability. 01/07-1 sec improvement STG Duration 01/31/21 Jail Goal (LTG) Pt will improve 30 sec sit to stand score to 12x to show improved balance and LE strength LTG Duration 03/02/21 6 min walk Short Term Goal (STG) Pt will be able to complete 6 min walk test without requring a rest break STG Duration achieved Jail Goal (LTG) Pt waill be able to walk 1171ft with no more than 2/10 pain after to show more age related norms for functional abiltiy in gait. 01/07-improved to 1070ft 02/09-1035ft 4/10 pain LTG Duration 03/03/21 Assessment Summary Assessment Pt did better w/exercises on ball today showing improvement w/ability to march on ball w/ o holding rail. He was very challenged by his ability to step down especially w/R leading fwd irritating his LB so worked on ability to ant dep w/manual tdoay. Physical Therapy Plan Frequency and Duration Frequency of Treatment 2x/Week Duration of Treatment 3 months Plan of Care Start Date 12/01/20 Plan of Care End Date 03/02/21 Next Visit Focus/Plan Next Note Type Treatment Note Next Visit Plan Aquatic: initiate prone adaptive crawl, progress ther ex in shallow and deep for strengthening core stabilization. Land: continue to work on core and hip strengthening
--- NOTE | 2021-02-16 11:57 | PT.OTN ---
Current Diagnoses Other chronic pain (02/16/21) Low back pain (02/16/21) Muscle weakness (generalized) (02/16/21) Difficulty in walking, not elsewhere classified (02/16/21) Unsteadiness on feet (02/16/21) Abnormal posture (02/16/21) Physical Therapy Treatment Note PT-OP-A Visit Information Start: 11/27/20 13:42 Freq: Status: Active Protocol: Document 02/16/21 11:43 [facility] (Rec: 02/16/21 11:56 [facility] [id number]) Out-Patient Physical Therapy Visit Information Visit Information Visit Type Treatment Note Visit Note 05/21 Visit Start Time 09:52 Visit Stop Time 10:30 Total Visit Minutes 38 Visit Number 20 Number of CRM COORDINATOR Visits 0 PT-OP-B Current Condition Start: 11/27/20 13:42 Freq: Status: Active Protocol: Document 12/01/20 14:05 [facility] (Rec: 12/01/20 15:18 [facility] [id number]) Current Condition History of Current Condition Onset Date worse over the past year Current Complaints balance, gait History of Current Condition Pt reports increasing difficulty with walking over uneven surfaces and has trouble w/stairs and curbs. In random intervals, R and LLE feels like they may give out ( mostly knee giving out sensation). Pt reports B foot pain that is gout like. pt reprots knees hurt at night with occasionally that discomfort being enough to wake him. Pt reports over the past year, inc difficulty with getting out of stair and feeling imbalance when first getting up. Pt reports LB is stiff and he is discouraged because he is trying to do his regular old PT exercises and trying tto walk but it hurts like hell to his legs, hips, knees, feet. He does stretches including bending over. He feels like his walk is a jarring walk and cannot walk on uneven ground. He has to hold a railing when stepping down and feels really uncertain. Pt reports he has been in pain since he was 22 years old. he does not want palliative care. Pt feels like he is occ feeling anticipatory pain and thinks he may have to talk to a psychiatrist. Pt got an electric bike with a low step through and he is scared to get on it. Pt reports he also can't get off the ground w/o pulling up on something. Pt can't get his leg up underneath himself and cannot lift his leg. Prior Treatments and Tests PT in past Treatment Goals Patient/Caregiver Goals Be able to walk distances & be able to walk a trail, be more confident about balance, have an analysis of gaito understand dysfunction, be able to go up/down stairs w/o feeling unstable Personal Factors Other Personal Factors That May Effect B TSA, R TKA, mult hand Therapy/Recovery surgeries, drainage of R hallux & removal of gout crystals, T11-12, L2-3, 3-4, 4 -5 lami and L4-5 fusion PT-OP-C Subjective Start: 11/27/20 13:42 Freq: Status: Active Protocol: Document 02/16/21 11:43 [facility] (Rec: 02/16/21 11:56 [facility] [id number]) OP-PT Subjective Patient Comments Patient Comments Pt reports overall doing well today PT-OP-D Balance Start: 11/27/20 13:42 Freq: Status: Active Protocol: Document 12/01/20 14:05 [facility] (Rec: 12/01/20 15:18 [facility] [id number]) Balance Tests Single Limb Standing Single Limb- Right 2sec w./lat lean & UEs uses Single Limb- Left 5 sec w./lat lean & UEs uses PT-OP-E Functional Tests Start: 11/27/20 13:42 Freq: Status: Active Protocol: Document 02/09/21 13:01 [facility] (Rec: 02/09/21 14:35 [facility] [id number]) Functional Tests 6 Minute Walk Test Distance 1045ft Comments 4/10 pain 30 Second Sit to Stand Test Score 8x Five Times Sit to Stand Test Score 20 sec PT-OP-G Mobility & Gait Start: 11/27/20 13:42 Freq: Status: Active Protocol: Document 12/01/20 14:05 [facility] (Rec: 12/01/20 15:18 [facility] [id number]) OP Mobility Evaluation Bed Mobility Rolling able to roll Supine to and from Sit required assist to sit up Transfers Sit to Stand slow and very slow to start moving OP Gait Assessment Comments Gait Comments lat lean w/WB R>L PT-OP-J Posture/Palpation/Skin Start: 11/27/20 13:42 Freq: Status: Active Protocol: Document 12/01/20 14:05 [facility] (Rec: 12/01/20 15:18 [facility] [id number]) Posture Evaluation Comments Posture Comments fwd flex posture PT-OP-M Strength Start: 11/27/20 13:42 Freq: Status: Active Protocol: Document 02/09/21 13:01 [facility] (Rec: 02/09/21 14:35 [facility] [id number]) Hip Strength Hip Manual Muscle Testing Right Flexion (L2) 3+ Fair+ Extension (S1) 3 Fair Abduction 3 Fair External Rotation 4 Good Internal Rotation 4 Good Comments pain in post knee w/hip ext; pain in hip w/flex & IR Left Flexion (L2) 4 Good Extension (S1) 3 Fair Abduction 3 Fair External Rotation 4+ Good+ Internal Rotation 4 Good Knee Strength Knee Manual Muscle Testing Right Flexion (S2) 5 Normal Extension (L3) 4+ Good+ Left Flexion (S2) 4+ Good+ Extension (L3) 5 Normal Ankle/Foot Strength Ankle and Foot Manual Muscle Testing Right Dorsiflexion (L4) 5 Normal Plantarflexion (S1) 5 Normal Left Dorsiflexion (L4) 5 Normal Plantarflexion (S1) 5 Normal Comments PF tested seated PT-OP-Q Treatments Start: 11/27/20 13:42 Freq: Status: Active Protocol: Document 02/16/21 11:43 [facility] (Rec: 02/16/21 11:56 [facility] [id number]) Gym Equipment Therapeutic Ball seated Ball Size/Color 75cm Body Position Sitting Comments 1. pelvic circles x20 B 2.knee ext x20 B w/slider 3. marches x12 B Therapeutic Exercises Standing Exercises step up Standing Exercise Name step down 2 in w/BURR GRINDER Side bilateral Reps/Minutes 15 sidestep Standing Exercise Name step up Side bilateral Equipment Used 4 in Reps/Minutes 15 Manual Therapy Treatment Soft Tissue Mobilization QL Body Location R QL & ES Mobilization Type Rolling Intensity/Depth Moderate Body Position Sidelying Comments w/c/r into ant dep Neuro Re-Education Treatment Balance Activities foam pad Details attempted step downs but too difficult SLS Details on foam B PT-OP-S Aquatic Treatment Start: 01/14/21 14:10 Freq: Status: Active Protocol: Document 02/04/21 13:41 [facility] (Rec: 02/04/21 13:53 [facility] [id number]) Aquatics Treatment Pool Entry/Exit Pool Entry/Exit Method Stairs Assistance Independent Water Walking fwd, bck, may, kick Water Level Chest Level Level of Assistance Verbal Cues Comments no UE support Lower Extremity Exercises hip flex/ext, ab/ad, circles, heel raise, toe raise Body Position Standing Reps/Duration 10x ea Comments no UE support Lower Extremity Stretches HS, Hip flexors Details at wall Body Position Standing Reps/Duration 30 x2 B Upper Extremity Exercises Hor ab/ad with core stab Body Position Standing Water Level Chest Level Reps/Duration 10x Spinal Exercises rotations at wall Body Position Sitting Water Level Chest Level Equipment BBs held underwater Reps/Duration 10 rotations x2 noodle pull down at wall Body Position Sitting Water Level Chest Level Equipment Large Noodle Reps/Duration 10 x 2 Balance SLS Reps/Duration 30 ea LE [place] Activities [place] Activities Bicycle,Bicycle Backwards, Cross [place],Running,Sit Kicks Other Activities pendulum Equipment flotation belt, noodle in UE's bckwd Duration 15 min PT-OP-T Assessment and Plan Start: 11/27/20 13:42 Freq: Status: Active Protocol: Document 02/16/21 11:43 [facility] (Rec: 02/16/21 11:56 [facility] [id number]) Physical Therapy Assessment Goals activities Short Term Goal (STG) Pt will be able to go up and down a curb and stairs w/o LOB w/o UE support. 01/07-pt reports improved STG Duration achieved but pt feels off balance Fruit Trimmer Goal (LTG) Pt will be able to go for 1 mile walks with no more than 4 /10 pain. LTG Duration 03/02/21 balance Short Term Goal (STG) Pt will be able to do SLS 10 sec B 01/07-L 15 sec, R 2 sec 02/09->30 sec L, R 13 sec STG Duration achieved Care Home Goal (LTG) Pt will be able to score at least 25/30 on FGA to show improved balance and low risk for falls. LTG Duration 03/02/21 strength Short Term Goal (STG) Pt will be indep w/ HEP STG Duration achieved progressing as able Fruit Trimmer Goal (LTG) Pt will score at least 1 full MMT grade higher on all LE MMT in order to improve pt joint stability and dec pain and improve strength to improve pt 's ease w/activities. 01/07-improved LTG Duration 03/02/21 sit to stand Short Term Goal (STG) Pt will improve 5x sit to stand test to no greater than 15 sec (norm 12 sec) to show improved functional ability. 01/07-1 sec improvement STG Duration 01/31/21 Fruit Trimmer Goal (LTG) Pt will improve 30 sec sit to stand score to 12x to show improved balance and LE strength LTG Duration 03/02/21 6 min walk Short Term Goal (STG) Pt will be able to complete 6 min walk test without requring a rest break STG Duration achieved Care Home Goal (LTG) Pt waill be able to walk 1171ft with no more than 2/10 pain after to show more age related norms for functional abiltiy in gait. 01/07-improved to 1070ft 02/09-1035ft 4/10 pain LTG Duration 03/03/21 Assessment Summary Assessment Pt did better w/exercises on ball today showing improvement w/ability to march on ball w/ o holding rail. He was very challenged by his ability to step down especially w/R leading fwd irritating his LB so worked on ability to ant dep w/manual tdoay. Physical Therapy Plan Frequency and Duration Frequency of Treatment 2x/Week Duration of Treatment 3 months Plan of Care Start Date 12/01/20 Plan of Care End Date 03/02/21 Next Visit Focus/Plan Next Note Type Treatment Note Next Visit Plan Aquatic: initiate prone adaptive crawl, progress ther ex in shallow and deep for strengthening core stabilization. Land: continue to work on core and hip strengthening
--- NOTE | 2021-02-18 16:47 | PT.OTN ---
Current Diagnoses Other chronic pain (02/16/21) Low back pain (02/16/21) Muscle weakness (generalized) (02/16/21) Difficulty in walking, not elsewhere classified (02/16/21) Unsteadiness on feet (02/16/21) Abnormal posture (02/16/21) Physical Therapy Treatment Note PT-OP-A Visit Information Start: 11/27/20 13:42 Freq: Status: Active Protocol: Document 02/18/21 16:40 [facility] (Rec: 02/18/21 16:47 [facility] [id number]) Out-Patient Physical Therapy Visit Information Visit Information Visit Type Treatment Note Visit Note 06/21 Visit Start Time 11:00 Visit Stop Time 11:45 Total Visit Minutes 45 Visit Number 22 Number of INSOLE AND HEEL STIFFENER Visits 0 PT-OP-B Current Condition Start: 11/27/20 13:42 Freq: Status: Active Protocol: Document 12/01/20 14:05 [facility] (Rec: 12/01/20 15:18 [facility] [id number]) Current Condition History of Current Condition Onset Date worse over the past year Current Complaints balance, gait History of Current Condition Pt reports increasing difficulty with walking over uneven surfaces and has trouble w/stairs and curbs. In random intervals, R and LLE feels like they may give out ( mostly knee giving out sensation). Pt reports B foot pain that is gout like. pt reprots knees hurt at night with occasionally that discomfort being enough to wake him. Pt reports over the past year, inc difficulty with getting out of stair and feeling imbalance when first getting up. Pt reports LB is stiff and he is discouraged because he is trying to do his regular old PT exercises and trying tto walk but it hurts like hell to his legs, hips, knees, feet. He does stretches including bending over. He feels like his walk is a jarring walk and cannot walk on uneven ground. He has to hold a railing when stepping down and feels really uncertain. Pt reports he has been in pain since he was 22 years old. he does not want palliative care. Pt feels like he is occ feeling anticipatory pain and thinks he may have to talk to a psychiatrist. Pt got an electric bike with a low step through and he is scared to get on it. Pt reports he also can't get off the ground w/o pulling up on something. Pt can't get his leg up underneath himself and cannot lift his leg. Prior Treatments and Tests PT in past Treatment Goals Patient/Caregiver Goals Be able to walk distances & be able to walk a trail, be more confident about balance, have an analysis of gaito understand dysfunction, be able to go up/down stairs w/o feeling unstable Personal Factors Other Personal Factors That May Effect B TSA, R TKA, mult hand Therapy/Recovery surgeries, drainage of R hallux & removal of gout crystals, T11-12, L2-3, 3-4, 4 -5 lami and L4-5 fusion PT-OP-C Subjective Start: 11/27/20 13:42 Freq: Status: Active Protocol: Document 02/18/21 16:40 [facility] (Rec: 02/18/21 16:47 [facility] [id number]) OP-PT Subjective Patient Comments Patient Comments Reports knee a little tweaky. Brought mask and snorkel as requested by PT PT-OP-D Balance Start: 11/27/20 13:42 Freq: Status: Active Protocol: Document 12/01/20 14:05 [facility] (Rec: 12/01/20 15:18 [facility] [id number]) Balance Tests Single Limb Standing Single Limb- Right 2sec w./lat lean & UEs uses Single Limb- Left 5 sec w./lat lean & UEs uses PT-OP-E Functional Tests Start: 11/27/20 13:42 Freq: Status: Active Protocol: Document 02/09/21 13:01 [facility] (Rec: 02/09/21 14:35 [facility] [id number]) Functional Tests 6 Minute Walk Test Distance 1045ft Comments 4/10 pain 30 Second Sit to Stand Test Score 8x Five Times Sit to Stand Test Score 20 sec PT-OP-G Mobility & Gait Start: 11/27/20 13:42 Freq: Status: Active Protocol: Document 12/01/20 14:05 [facility] (Rec: 12/01/20 15:18 [facility] [id number]) OP Mobility Evaluation Bed Mobility Rolling able to roll Supine to and from Sit required assist to sit up Transfers Sit to Stand slow and very slow to start moving OP Gait Assessment Comments Gait Comments lat lean w/WB R>L PT-OP-J Posture/Palpation/Skin Start: 11/27/20 13:42 Freq: Status: Active Protocol: Document 12/01/20 14:05 [facility] (Rec: 12/01/20 15:18 [facility] [id number]) Posture Evaluation Comments Posture Comments fwd flex posture PT-OP-M Strength Start: 11/27/20 13:42 Freq: Status: Active Protocol: Document 02/09/21 13:01 [facility] (Rec: 02/09/21 14:35 [facility] [id number]) Hip Strength Hip Manual Muscle Testing Right Flexion (L2) 3+ Fair+ Extension (S1) 3 Fair Abduction 3 Fair External Rotation 4 Good Internal Rotation 4 Good Comments pain in post knee w/hip ext; pain in hip w/flex & IR Left Flexion (L2) 4 Good Extension (S1) 3 Fair Abduction 3 Fair External Rotation 4+ Good+ Internal Rotation 4 Good Knee Strength Knee Manual Muscle Testing Right Flexion (S2) 5 Normal Extension (L3) 4+ Good+ Left Flexion (S2) 4+ Good+ Extension (L3) 5 Normal Ankle/Foot Strength Ankle and Foot Manual Muscle Testing Right Dorsiflexion (L4) 5 Normal Plantarflexion (S1) 5 Normal Left Dorsiflexion (L4) 5 Normal Plantarflexion (S1) 5 Normal Comments PF tested seated PT-OP-Q Treatments Start: 11/27/20 13:42 Freq: Status: Active Protocol: Document 02/16/21 11:43 [facility] (Rec: 02/16/21 11:56 [facility] [id number]) Gym Equipment Therapeutic Ball seated Ball Size/Color 75cm Body Position Sitting Comments 1. pelvic circles x20 B 2.knee ext x20 B w/slider 3. marches x12 B Therapeutic Exercises Standing Exercises step up Standing Exercise Name step down 2 in w/ORACLE ADF DEVELOPER Side bilateral Reps/Minutes 15 sidestep Standing Exercise Name step up Side bilateral Equipment Used 4 in Reps/Minutes 15 Manual Therapy Treatment Soft Tissue Mobilization QL Body Location R QL & ES Mobilization Type Rolling Intensity/Depth Moderate Body Position Sidelying Comments w/c/r into ant dep Neuro Re-Education Treatment Balance Activities foam pad Details attempted step downs but too difficult SLS Details on foam B PT-OP-S Aquatic Treatment Start: 01/14/21 14:10 Freq: Status: Active Protocol: Document 02/18/21 16:40 [facility] (Rec: 02/18/21 16:47 [facility] [id number]) Aquatics Treatment Pool Entry/Exit Pool Entry/Exit Method Stairs Assistance Independent Water Walking step up/down Water Level Neck Level Walking Equipment 8 box Level of Assistance Verbal Cues Comments forward and side, chest level fwd, bck, side, may, kick Water Level Chest Level Walking Equipment Ankle Floats Level of Assistance Verbal Cues Comments no UE support Lower Extremity Exercises hamstring curl Reps/Duration 10x Comments no UE support LE stretches Details HS, ITB, groin, quad Body Position Standing Water Level Chest Level Equipment large ankle floats Comments standing at wall [place] Activities [place] Activities Bicycle,Bicycle Backwards, Cross [place],Running,Sit Kicks Other Activities pendulum Deep water DLS with med barbells Equipment flotation belt, noodle in UE's bckwd Duration 15 min Comments 6 sets 30:30 intervals run, sit kicks, hip ab/ad, x- country Swim Strokes Crawl Equipment Mask/Snorkel Laps/Duration 1 lap PT-OP-T Assessment and Plan Start: 11/27/20 13:42 Freq: Status: Active Protocol: Document 02/18/21 16:40 [facility] (Rec: 02/18/21 16:47 [facility] [id number]) Physical Therapy Assessment Goals activities Short Term Goal (STG) Pt will be able to go up and down a curb and stairs w/o LOB w/o UE support. 01/07-pt reports improved STG Duration achieved but pt feels off balance Sterile Supervisor Goal (LTG) Pt will be able to go for 1 mile walks with no more than 4 /10 pain. LTG Duration 03/02/21 balance Short Term Goal (STG) Pt will be able to do SLS 10 sec B 01/07-L 15 sec, R 2 sec 02/09->30 sec L, R 13 sec STG Duration achieved Sterile Supervisor Goal (LTG) Pt will be able to score at least 25/30 on FGA to show improved balance and low risk for falls. LTG Duration 03/02/21 strength Short Term Goal (STG) Pt will be indep w/ HEP STG Duration achieved progressing as able Sterile Supervisor Goal (LTG) Pt will score at least 1 full MMT grade higher on all LE MMT in order to improve pt joint stability and dec pain and improve strength to improve pt 's ease w/activities. 01/07-improved LTG Duration 03/02/21 sit to stand Short Term Goal (STG) Pt will improve 5x sit to stand test to no greater than 15 sec (norm 12 sec) to show improved functional ability. 01/07-1 sec improvement STG Duration 01/31/21 Sterile Supervisor Goal (LTG) Pt will improve 30 sec sit to stand score to 12x to show improved balance and LE strength LTG Duration 03/02/21 6 min walk Short Term Goal (STG) Pt will be able to complete 6 min walk test without requring a rest break STG Duration achieved Correction Goal (LTG) Pt waill be able to walk 1171ft with no more than 2/10 pain after to show more age related norms for functional abiltiy in gait. 01/07-improved to 1070ft 02/09-1035ft 4/10 pain LTG Duration 03/03/21 Assessment Summary Assessment Increased intensity of LE stretches with large ankle floats, added deep water intervals, prone crawl with mask and snorkel and progressed deep water DLS ex with good tolerance. Physical Therapy Plan Frequency and Duration Frequency of Treatment 2x/Week Duration of Treatment 3 months Plan of Care Start Date 12/01/20 Plan of Care End Date 03/02/21 Next Visit Focus/Plan Next Note Type Treatment Note Next Visit Plan Aquatic: progress ther ex in shallow and deep for strengthening core stabilization. Patient to do swimming on own. Land: continue to work on core and hip strengthening
--- NOTE | 2021-02-23 10:07 | PT.OTN ---
Current Diagnoses Other chronic pain (02/23/21) Low back pain (02/23/21) Muscle weakness (generalized) (02/23/21) Difficulty in walking, not elsewhere classified (02/23/21) Unsteadiness on feet (02/23/21) Abnormal posture (02/23/21) Physical Therapy Treatment Note PT-OP-A Visit Information Start: 11/27/20 13:42 Freq: Status: Active Protocol: Document 02/23/21 09:38 [facility] (Rec: 02/23/21 10:07 [facility] [id number]) Out-Patient Physical Therapy Visit Information Visit Information Visit Type Treatment Note Visit Note 07/21 Visit Start Time 09:03 Visit Stop Time 09:43 Total Visit Minutes 40 Visit Number 23 Number of DEMAND PLANNING ANALYST Visits 0 PT-OP-B Current Condition Start: 11/27/20 13:42 Freq: Status: Active Protocol: Document 12/01/20 14:05 [facility] (Rec: 12/01/20 15:18 [facility] [id number]) Current Condition History of Current Condition Onset Date worse over the past year Current Complaints balance, gait History of Current Condition Pt reports increasing difficulty with walking over uneven surfaces and has trouble w/stairs and curbs. In random intervals, R and LLE feels like they may give out ( mostly knee giving out sensation). Pt reports B foot pain that is gout like. pt reprots knees hurt at night with occasionally that discomfort being enough to wake him. Pt reports over the past year, inc difficulty with getting out of stair and feeling imbalance when first getting up. Pt reports LB is stiff and he is discouraged because he is trying to do his regular old PT exercises and trying tto walk but it hurts like hell to his legs, hips, knees, feet. He does stretches including bending over. He feels like his walk is a jarring walk and cannot walk on uneven ground. He has to hold a railing when stepping down and feels really uncertain. Pt reports he has been in pain since he was 22 years old. he does not want palliative care. Pt feels like he is occ feeling anticipatory pain and thinks he may have to talk to a psychiatrist. Pt got an electric bike with a low step through and he is scared to get on it. Pt reports he also can't get off the ground w/o pulling up on something. Pt can't get his leg up underneath himself and cannot lift his leg. Prior Treatments and Tests PT in past Treatment Goals Patient/Caregiver Goals Be able to walk distances & be able to walk a trail, be more confident about balance, have an analysis of gaito understand dysfunction, be able to go up/down stairs w/o feeling unstable Personal Factors Other Personal Factors That May Effect B TSA, R TKA, mult hand Therapy/Recovery surgeries, drainage of R hallux & removal of gout crystals, T11-12, L2-3, 3-4, 4 -5 lami and L4-5 fusion PT-OP-C Subjective Start: 11/27/20 13:42 Freq: Status: Active Protocol: Document 02/23/21 09:38 [facility] (Rec: 02/23/21 10:07 [facility] [id number]) OP-PT Subjective Patient Comments Patient Comments Pt reports walking in town for about 30 min or so. NOtes it ws more interesting than walking around home PT-OP-D Balance Start: 11/27/20 13:42 Freq: Status: Active Protocol: Document 12/01/20 14:05 [facility] (Rec: 12/01/20 15:18 [facility] [id number]) Balance Tests Single Limb Standing Single Limb- Right 2sec w./lat lean & UEs uses Single Limb- Left 5 sec w./lat lean & UEs uses PT-OP-E Functional Tests Start: 11/27/20 13:42 Freq: Status: Active Protocol: Document 02/09/21 13:01 [facility] (Rec: 02/09/21 14:35 [facility] [id number]) Functional Tests 6 Minute Walk Test Distance 1045ft Comments 4/10 pain 30 Second Sit to Stand Test Score 8x Five Times Sit to Stand Test Score 20 sec PT-OP-G Mobility & Gait Start: 11/27/20 13:42 Freq: Status: Active Protocol: Document 12/01/20 14:05 [facility] (Rec: 12/01/20 15:18 [facility] [id number]) OP Mobility Evaluation Bed Mobility Rolling able to roll Supine to and from Sit required assist to sit up Transfers Sit to Stand slow and very slow to start moving OP Gait Assessment Comments Gait Comments lat lean w/WB R>L PT-OP-J Posture/Palpation/Skin Start: 11/27/20 13:42 Freq: Status: Active Protocol: Document 12/01/20 14:05 [facility] (Rec: 12/01/20 15:18 [facility] [id number]) Posture Evaluation Comments Posture Comments fwd flex posture PT-OP-M Strength Start: 11/27/20 13:42 Freq: Status: Active Protocol: Document 02/09/21 13:01 [facility] (Rec: 02/09/21 14:35 [facility] [id number]) Hip Strength Hip Manual Muscle Testing Right Flexion (L2) 3+ Fair+ Extension (S1) 3 Fair Abduction 3 Fair External Rotation 4 Good Internal Rotation 4 Good Comments pain in post knee w/hip ext; pain in hip w/flex & IR Left Flexion (L2) 4 Good Extension (S1) 3 Fair Abduction 3 Fair External Rotation 4+ Good+ Internal Rotation 4 Good Knee Strength Knee Manual Muscle Testing Right Flexion (S2) 5 Normal Extension (L3) 4+ Good+ Left Flexion (S2) 4+ Good+ Extension (L3) 5 Normal Ankle/Foot Strength Ankle and Foot Manual Muscle Testing Right Dorsiflexion (L4) 5 Normal Plantarflexion (S1) 5 Normal Left Dorsiflexion (L4) 5 Normal Plantarflexion (S1) 5 Normal Comments PF tested seated PT-OP-Q Treatments Start: 11/27/20 13:42 Freq: Status: Active Protocol: Document 02/23/21 09:38 [facility] (Rec: 02/23/21 10:07 [facility] [id number]) Gym Equipment Shuttle Balance red clips Details fwd & side Comments squats x10 B Therapeutic Exercises Standing Exercises DF Standing Exercise Name standing alt Side bilateral Reps/Minutes 20 heel raises Standing Exercise Name w/small ball between ankles Side bilateral Reps/Minutes 30 step up Standing Exercise Name step down 2 in w/rail prn Side bilateral Reps/Minutes 15 stretches Standing Exercise Name 1. calf stretch 2. adductor stretch 3. HS/robert pose stretch Side bilateral Reps/Minutes 30 sec ea sidestep Standing Exercise Name step up Side bilateral Equipment Used 5 in Reps/Minutes 15 Neuro Re-Education Treatment Balance Activities SLS Comments 1. SLS trials 2. toe taps B on 12 in step x20 3. tap to 5 color pods in semi apache-rail prn x6 B PT-OP-S Aquatic Treatment Start: 01/14/21 14:10 Freq: Status: Active Protocol: Document 02/18/21 16:40 [facility] (Rec: 02/18/21 16:47 [facility] [id number]) Aquatics Treatment Pool Entry/Exit Pool Entry/Exit Method Stairs Assistance Independent Water Walking step up/down Water Level Neck Level Walking Equipment 8 box Level of Assistance Verbal Cues Comments forward and side, chest level fwd, bck, , may, kick Water Level Chest Level Walking Equipment Ankle Floats Level of Assistance Verbal Cues Comments no UE support Lower Extremity Exercises hamstring curl Reps/Duration 10x Comments no UE support LE stretches Details HS, ITB, groin, quad Body Position Standing Water Level Chest Level Equipment large ankle floats Comments standing at wall Baring Activities Baring Activities Bicycle,Bicycle Backwards, Cross [place],Running,Sit Kicks Other Activities pendulum Deep water DLS with med barbells Equipment flotation belt, noodle in UE's bckwd Duration 15 min Comments 6 sets 30:30 intervals run, sit kicks, hip ab/ad, x- country Swim Strokes Crawl Equipment Mask/Snorkel Laps/Duration 1 lap PT-OP-T Assessment and Plan Start: 11/27/20 13:42 Freq: Status: Active Protocol: Document 02/23/21 09:38 [facility] (Rec: 02/23/21 10:07 [facility] [id number]) Physical Therapy Assessment Goals activities Short Term Goal (STG) Pt will be able to go up and down a curb and stairs w/o LOB w/o UE support. 01/07-pt reports improved STG Duration achieved but pt feels off balance Care Home Goal (LTG) Pt will be able to go for 1 mile walks with no more than 4 /10 pain. LTG Duration 03/02/21 balance Short Term Goal (STG) Pt will be able to do SLS 10 sec B 01/07-L 15 sec, R 2 sec 02/09->30 sec L, R 13 sec STG Duration achieved Hplc Chemist Goal (LTG) Pt will be able to score at least 25/30 on FGA to show improved balance and low risk for falls. LTG Duration 03/02/21 strength Short Term Goal (STG) Pt will be indep w/ HEP STG Duration achieved progressing as able Hplc Chemist Goal (LTG) Pt will score at least 1 full MMT grade higher on all LE MMT in order to improve pt joint stability and dec pain and improve strength to improve pt 's ease w/activities. 01/07-improved LTG Duration 03/02/21 sit to stand Short Term Goal (STG) Pt will improve 5x sit to stand test to no greater than 15 sec (norm 12 sec) to show improved functional ability. 01/07-1 sec improvement STG Duration 01/31/21 Hplc Chemist Goal (LTG) Pt will improve 30 sec sit to stand score to 12x to show improved balance and LE strength LTG Duration 03/02/21 6 min walk Short Term Goal (STG) Pt will be able to complete 6 min walk test without requring a rest break STG Duration achieved Hplc Chemist Goal (LTG) Pt waill be able to walk 1171ft with no more than 2/10 pain after to show more age related norms for functional abiltiy in gait. 01/07-improved to 1070ft 02/09-1035ft 4/10 pain LTG Duration 03/03/21 Assessment Summary Assessment Pt did better with step downs today w/improved control w/ cueing. He has more difficulty w/SL balance when doing dynamic tasks and is more challenged when moving. He supinates significantly w/heel raises so ball added btwn ankles to improve. When pt noted pain, a stretchw as done and pt noted improvement. Pt encouraged to go 3 different places to walk this week to keep inc interest in walking and stretch as needed during and after. Physical Therapy Plan Frequency and Duration Frequency of Treatment 2x/Week Duration of Treatment 3 months Plan of Care Start Date 12/01/20 Plan of Care End Date 03/02/21 Next Visit Focus/Plan Next Note Type Treatment Note Next Visit Plan Aquatic: progress ther ex in shallow and deep for strengthening core stabilization. Patient to do swimming on own. Land: continue to work on core and hip strengthening *new POC next land visit
--- NOTE | 2021-02-25 14:06 | PT.OTN ---
Current Diagnoses Other chronic pain (02/25/21) Low back pain (02/25/21) Muscle weakness (generalized) (02/25/21) Difficulty in walking, not elsewhere classified (02/25/21) Unsteadiness on feet (02/25/21) Abnormal posture (02/25/21) Physical Therapy Treatment Note PT-OP-A Visit Information Start: 11/27/20 13:42 Freq: Status: Active Protocol: Document 02/25/21 13:56 [facility] (Rec: 02/25/21 14:06 [facility] [id number]) Out-Patient Physical Therapy Visit Information Visit Information Visit Type Aquatic Treatment Note Visit Start Time 11:00 Visit Stop Time 11:45 Total Visit Minutes 45 Visit Number 24 Number of FREEZING ROOM WORKER Visits 1 PT-OP-B Current Condition Start: 11/27/20 13:42 Freq: Status: Active Protocol: Document 12/01/20 14:05 [facility] (Rec: 12/01/20 15:18 [facility] [id number]) Current Condition History of Current Condition Onset Date worse over the past year Current Complaints balance, gait History of Current Condition Pt reports increasing difficulty with walking over uneven surfaces and has trouble w/stairs and curbs. In random intervals, R and LLE feels like they may give out ( mostly knee giving out sensation). Pt reports B foot pain that is gout like. pt reprots knees hurt at night with occasionally that discomfort being enough to wake him. Pt reports over the past year, inc difficulty with getting out of stair and feeling imbalance when first getting up. Pt reports LB is stiff and he is discouraged because he is trying to do his regular old PT exercises and trying tto walk but it hurts like hell to his legs, hips, knees, feet. He does stretches including bending over. He feels like his walk is a jarring walk and cannot walk on uneven ground. He has to hold a railing when stepping down and feels really uncertain. Pt reports he has been in pain since he was 22 years old. he does not want palliative care. Pt feels like he is occ feeling anticipatory pain and thinks he may have to talk to a psychiatrist. Pt got an electric bike with a low step through and he is scared to get on it. Pt reports he also can't get off the ground w/o pulling up on something. Pt can't get his leg up underneath himself and cannot lift his leg. Prior Treatments and Tests PT in past Treatment Goals Patient/Caregiver Goals Be able to walk distances & be able to walk a trail, be more confident about balance, have an analysis of gaito understand dysfunction, be able to go up/down stairs w/o feeling unstable Personal Factors Other Personal Factors That May Effect B TSA, R TKA, mult hand Therapy/Recovery surgeries, drainage of R hallux & removal of gout crystals, T11-12, L2-3, 3-4, 4 -5 lami and L4-5 fusion PT-OP-C Subjective Start: 11/27/20 13:42 Freq: Status: Active Protocol: Document 02/25/21 13:56 [facility] (Rec: 02/25/21 14:06 [facility] [id number]) OP-PT Subjective Patient Comments Patient Comments Pt reports tweaking his back yesterday and it's a bit sore. PT-OP-D Balance Start: 11/27/20 13:42 Freq: Status: Active Protocol: Document 12/01/20 14:05 [facility] (Rec: 12/01/20 15:18 [facility] [id number]) Balance Tests Single Limb Standing Single Limb- Right 2sec w./lat lean & UEs uses Single Limb- Left 5 sec w./lat lean & UEs uses PT-OP-E Functional Tests Start: 11/27/20 13:42 Freq: Status: Active Protocol: Document 02/09/21 13:01 [facility] (Rec: 02/09/21 14:35 [facility] [id number]) Functional Tests 6 Minute Walk Test Distance 1045ft Comments 4/10 pain 30 Second Sit to Stand Test Score 8x Five Times Sit to Stand Test Score 20 sec PT-OP-G Mobility & Gait Start: 11/27/20 13:42 Freq: Status: Active Protocol: Document 12/01/20 14:05 [facility] (Rec: 12/01/20 15:18 [facility] [id number]) OP Mobility Evaluation Bed Mobility Rolling able to roll Supine to and from Sit required assist to sit up Transfers Sit to Stand slow and very slow to start moving OP Gait Assessment Comments Gait Comments lat lean w/WB R>L PT-OP-J Posture/Palpation/Skin Start: 11/27/20 13:42 Freq: Status: Active Protocol: Document 12/01/20 14:05 [facility] (Rec: 12/01/20 15:18 [facility] [id number]) Posture Evaluation Comments Posture Comments fwd flex posture PT-OP-M Strength Start: 11/27/20 13:42 Freq: Status: Active Protocol: Document 02/09/21 13:01 [facility] (Rec: 02/09/21 14:35 [facility] [id number]) Hip Strength Hip Manual Muscle Testing Right Flexion (L2) 3+ Fair+ Extension (S1) 3 Fair Abduction 3 Fair External Rotation 4 Good Internal Rotation 4 Good Comments pain in post knee w/hip ext; pain in hip w/flex & IR Left Flexion (L2) 4 Good Extension (S1) 3 Fair Abduction 3 Fair External Rotation 4+ Good+ Internal Rotation 4 Good Knee Strength Knee Manual Muscle Testing Right Flexion (S2) 5 Normal Extension (L3) 4+ Good+ Left Flexion (S2) 4+ Good+ Extension (L3) 5 Normal Ankle/Foot Strength Ankle and Foot Manual Muscle Testing Right Dorsiflexion (L4) 5 Normal Plantarflexion (S1) 5 Normal Left Dorsiflexion (L4) 5 Normal Plantarflexion (S1) 5 Normal Comments PF tested seated PT-OP-Q Treatments Start: 11/27/20 13:42 Freq: Status: Active Protocol: Document 02/23/21 09:38 [facility] (Rec: 02/23/21 10:07 [facility] [id number]) Gym Equipment Shuttle Balance red clips Details fwd & side Comments squats x10 B Therapeutic Exercises Standing Exercises DF Standing Exercise Name standing alt Side bilateral Reps/Minutes 20 heel raises Standing Exercise Name w/small ball between ankles Side bilateral Reps/Minutes 30 step up Standing Exercise Name step down 2 in w/rail prn Side bilateral Reps/Minutes 15 stretches Standing Exercise Name 1. calf stretch 2. adductor stretch 3. HS/robert pose stretch Side bilateral Reps/Minutes 30 sec ea sidestep Standing Exercise Name step up Side bilateral Equipment Used 5 in Reps/Minutes 15 Neuro Re-Education Treatment Balance Activities SLS Comments 1. SLS trials 2. toe taps B on 12 in step x20 3. tap to 5 color pods in semi te-moak-rail prn x6 B PT-OP-S Aquatic Treatment Start: 01/14/21 14:10 Freq: Status: Active Protocol: Document 02/25/21 13:56 (Rec: 02/25/21 14:06 [id number]) Aquatics Treatment Pool Entry/Exit Pool Entry/Exit Method Stairs Assistance Independent Water Walking circumduction f/b Water Level Chest Level Level of Assistance Verbal Cues step up/down Water Level Neck Level Walking Equipment 8 box Level of Assistance Verbal Cues Comments forward and side, chest level fwd, bck, side, may, kick Water Level Chest Level Walking Equipment Ankle Floats Level of Assistance Verbal Cues Comments no UE support Lower Extremity Exercises LE stretches Details HS, ITB, groin, quad Body Position Standing Water Level Chest Level Equipment large ankle floats Comments standing at wall hip flex/ext, ab/ad, circles, heel raise, toe raise Body Position Standing Water Level Chest Level Reps/Duration 10x B Comments at wall Lower Extremity Stretches HS, Hip flexors Details at wall Body Position Standing Reps/Duration 30 x2 B Upper Extremity Exercises Hor ab/ad with core stab Body Position Standing Water Level Chest Level Reps/Duration 10x Balance SLS Reps/Duration 30 ea LE [place] Activities [place] Activities Bicycle,Bicycle Backwards,Sit Kicks Other Activities pendulum Deep water DLS with med barbells abdominal pull down at wall Equipment flotation belt, noodle in UE's bckwd Duration 18 min PT-OP-T Assessment and Plan Start: 11/27/20 13:42 Freq: Status: Active Protocol: Document 02/25/21 13:56 (Rec: 02/25/21 14:06 [id number]) Physical Therapy Assessment Goals activities Short Term Goal (STG) Pt will be able to go up and down a curb and stairs w/o LOB w/o UE support. 01/07-pt reports improved STG Duration achieved but pt feels off balance Retirement Goal (LTG) Pt will be able to go for 1 mile walks with no more than 4 /10 pain. LTG Duration 03/02/21 balance Short Term Goal (STG) Pt will be able to do SLS 10 sec B 01/07-L 15 sec, R 2 sec 02/09->30 sec L, R 13 sec STG Duration achieved Retirement Goal (LTG) Pt will be able to score at least 25/30 on FGA to show improved balance and low risk for falls. LTG Duration 03/02/21 strength Short Term Goal (STG) Pt will be indep w/ HEP STG Duration achieved progressing as able Retirement Goal (LTG) Pt will score at least 1 full MMT grade higher on all LE MMT in order to improve pt joint stability and dec pain and improve strength to improve pt 's ease w/activities. 01/07-improved LTG Duration 03/02/21 sit to stand Short Term Goal (STG) Pt will improve 5x sit to stand test to no greater than 15 sec (norm 12 sec) to show improved functional ability. 01/07-1 sec improvement STG Duration 01/31/21 Retirement Goal (LTG) Pt will improve 30 sec sit to stand score to 12x to show improved balance and LE strength LTG Duration 03/02/21 6 min walk Short Term Goal (STG) Pt will be able to complete 6 min walk test without requring a rest break STG Duration achieved Radial Router Operator Goal (LTG) Pt waill be able to walk 1171ft with no more than 2/10 pain after to show more age related norms for functional abiltiy in gait. 01/07-improved to 1070ft 02/09-1035ft 4/10 pain LTG Duration 03/03/21 Assessment Summary Assessment Pt did better with step downs today w/improved control w/ cueing. He has more difficulty w/SL balance when doing dynamic tasks and is more challenged when moving. He supinates significantly w/heel raises so ball added btwn ankles to improve. When pt noted pain, a stretchw as done and pt noted improvement. Pt encouraged to go 3 different places to walk this week to keep inc interest in walking and stretch as needed during and after. AQUATICS: Gentler exercises were performed this session d/ t straining back yesterday. Pt did well on step-ups/down on boxes without LOB in shallowest water. Challenging to raise himself to full standing using RLE. Continue to progress AT exercises as tolerated. Physical Therapy Plan Frequency and Duration Frequency of Treatment 2x/Week Duration of Treatment 3 months Plan of Care Start Date 12/01/20 Plan of Care End Date 03/02/21 Next Visit Focus/Plan Next Note Type Treatment Note Next Visit Plan Aquatic: progress ther ex in shallow and deep for strengthening core stabilization. Patient to do swimming on own. Land: continue to work on core and hip strengthening *new POC next land visit
--- NOTE | 2021-03-02 11:57 | PT.OTN ---
Current Diagnoses Other chronic pain (03/02/21) Low back pain (03/02/21) Muscle weakness (generalized) (03/02/21) Difficulty in walking, not elsewhere classified (03/02/21) Unsteadiness on feet (03/02/21) Abnormal posture (03/02/21) Physical Therapy Treatment Note PT-OP-A Visit Information Start: 11/27/20 13:42 Freq: Status: Active Protocol: Document 03/02/21 09:27 [facility] (Rec: 03/02/21 11:57 [facility] [id number]) Out-Patient Physical Therapy Visit Information Visit Information Visit Type Progress Note Visit Note 03/23 Visit Start Time 09:48 Visit Stop Time 10:30 Total Visit Minutes 42 Visit Number 25 Number of AUDIT SPECIALIST Visits 0 PT-OP-B Current Condition Start: 11/27/20 13:42 Freq: Status: Active Protocol: Document 12/01/20 14:05 [facility] (Rec: 12/01/20 15:18 [facility] [id number]) Current Condition History of Current Condition Onset Date worse over the past year Current Complaints balance, gait History of Current Condition Pt reports increasing difficulty with walking over uneven surfaces and has trouble w/stairs and curbs. In random intervals, R and LLE feels like they may give out ( mostly knee giving out sensation). Pt reports B foot pain that is gout like. pt reprots knees hurt at night with occasionally that discomfort being enough to wake him. Pt reports over the past year, inc difficulty with getting out of stair and feeling imbalance when first getting up. Pt reports LB is stiff and he is discouraged because he is trying to do his regular old PT exercises and trying tto walk but it hurts like hell to his legs, hips, knees, feet. He does stretches including bending over. He feels like his walk is a jarring walk and cannot walk on uneven ground. He has to hold a railing when stepping down and feels really uncertain. Pt reports he has been in pain since he was 22 years old. he does not want palliative care. Pt feels like he is occ feeling anticipatory pain and thinks he may have to talk to a psychiatrist. Pt got an electric bike with a low step through and he is scared to get on it. Pt reports he also can't get off the ground w/o pulling up on something. Pt can't get his leg up underneath himself and cannot lift his leg. Prior Treatments and Tests PT in past Treatment Goals Patient/Caregiver Goals Be able to walk distances & be able to walk a trail, be more confident about balance, have an analysis of gaito understand dysfunction, be able to go up/down stairs w/o feeling unstable Personal Factors Other Personal Factors That May Effect B TSA, R TKA, mult hand Therapy/Recovery surgeries, drainage of R hallux & removal of gout crystals, T11-12, L2-3, 3-4, 4 -5 lami and L4-5 fusion PT-OP-C Subjective Start: 11/27/20 13:42 Freq: Status: Active Protocol: Document 03/02/21 09:27 [facility] (Rec: 03/02/21 11:57 [facility] [id number]) OP-PT Subjective Patient Comments Patient Comments Pt reports doing 2 short walks last week PT-OP-D Balance Start: 11/27/20 13:42 Freq: Status: Active Protocol: Document 12/01/20 14:05 [facility] (Rec: 12/01/20 15:18 [facility] [id number]) Balance Tests Single Limb Standing Single Limb- Right 2sec w./lat lean & UEs uses Single Limb- Left 5 sec w./lat lean & UEs uses PT-OP-E Functional Tests Start: 11/27/20 13:42 Freq: Status: Active Protocol: Document 03/02/21 09:27 [facility] (Rec: 03/02/21 11:57 [facility] [id number]) Functional Tests 6 Minute Walk Test Distance 1138ft Comments 4/10 pain 30 Second Sit to Stand Test Score 10 Five Times Sit to Stand Test Score 12 sec Functional Gait Assessment Score 21 PT-OP-G Mobility & Gait Start: 11/27/20 13:42 Freq: Status: Active Protocol: Document 12/01/20 14:05 [facility] (Rec: 12/01/20 15:18 [facility] [id number]) OP Mobility Evaluation Bed Mobility Rolling able to roll Supine to and from Sit required assist to sit up Transfers Sit to Stand slow and very slow to start moving OP Gait Assessment Comments Gait Comments lat lean w/WB R>L PT-OP-J Posture/Palpation/Skin Start: 11/27/20 13:42 Freq: Status: Active Protocol: Document 12/01/20 14:05 [facility] (Rec: 12/01/20 15:18 [facility] [id number]) Posture Evaluation Comments Posture Comments fwd flex posture PT-OP-M Strength Start: 11/27/20 13:42 Freq: Status: Active Protocol: Document 03/02/21 09:27 [facility] (Rec: 03/02/21 11:57 [facility] [id number]) Hip Strength Hip Manual Muscle Testing Right Flexion (L2) 3+ Fair+ Extension (S1) 3+ Fair+ Abduction 3+ Fair+ External Rotation 4+ Good+ Internal Rotation 5 Normal Comments pain in post knee w/hip ext; Left Flexion (L2) 4 Good Extension (S1) 3 Fair Abduction 3+ Fair+ External Rotation 4+ Good+ Internal Rotation 5 Normal Knee Strength Knee Manual Muscle Testing Right Flexion (S2) 5 Normal Extension (L3) 5 Normal Left Flexion (S2) 5 Normal Extension (L3) 5 Normal Ankle/Foot Strength Ankle and Foot Manual Muscle Testing Right Dorsiflexion (L4) 5 Normal Plantarflexion (S1) 5 Normal Left Dorsiflexion (L4) 5 Normal Plantarflexion (S1) 5 Normal Comments PF tested seated PT-OP-Q Treatments Start: 11/27/20 13:42 Freq: Status: Active Protocol: Document 03/02/21 09:27 [facility] (Rec: 03/02/21 11:57 [facility] [id number]) Therapeutic Exercises Sidelying Exercises hip abd Sidelying Exercise Name cues for no rolling back Side bilateral Reps/Minutes 5 Standing Exercises hip abd Side bilateral Reps/Minutes 12 Comments cues for upright position hip ext Side bilateral Comments cues for upright position Self-Care/Home Management Treatment Education Other Education edu to start to gradually increase his walking and tracking his distance, time, elevation and pain w/watch, edu to cont to advance that. Edu to try to do a bout of walking then rest on bench for 5 min then go again. Encouraged to cont to work on hip strength at home PT-OP-S Aquatic Treatment Start: 01/14/21 14:10 Freq: Status: Active Protocol: Document 02/25/21 13:56 [facility] (Rec: 02/25/21 14:06 [facility] [id number]) Aquatics Treatment Pool Entry/Exit Pool Entry/Exit Method Stairs Assistance Independent Water Walking circumduction f/b Water Level Chest Level Level of Assistance Verbal Cues step up/down Water Level Neck Level Walking Equipment 8 box Level of Assistance Verbal Cues Comments forward and side, chest level fwd, bck, side, may, may kick Water Level Chest Level Walking Equipment Ankle Floats Level of Assistance Verbal Cues Comments no UE support Lower Extremity Exercises LE stretches Details HS, ITB, groin, quad Body Position Standing Water Level Chest Level Equipment large ankle floats Comments standing at wall hip flex/ext, ab/ad, circles, heel raise, toe raise Body Position Standing Water Level Chest Level Reps/Duration 10x B Comments at wall Lower Extremity Stretches HS, Hip flexors Details at wall Body Position Standing Reps/Duration 30 x2 B Upper Extremity Exercises Hor ab/ad with core stab Body Position Standing Water Level Chest Level Reps/Duration 10x Balance SLS Reps/Duration 30 ea LE Lawn Activities Lawn Activities Bicycle,Bicycle Backwards,Sit Kicks Other Activities pendulum Deep water DLS with med barbells abdominal pull down at wall Equipment flotation belt, noodle in UE's bckwd Duration 18 min PT-OP-T Assessment and Plan Start: 11/27/20 13:42 Freq: Status: Active Protocol: Document 03/02/21 09:27 [facility] (Rec: 03/02/21 11:57 [facility] [id number]) Physical Therapy Assessment Goals activities Short Term Goal (STG) Pt will be able to go up and down a curb and stairs w/o LOB w/o UE support. 01/07-pt reports improved STG Duration achieved but pt feels off balance Fabrication Welder Goal (LTG) Pt will be able to go for 1 mile walks with no more than 4 /10 pain. 03/02- still gradually progressing stopping d/t LBP after about 1/4 mile w/5/10 pain LTG Duration 05/03/21 balance Short Term Goal (STG) Pt will be able to do SLS 10 sec B 01/07-L 15 sec, R 2 sec 02/09->30 sec L, R 13 sec STG Duration achieved [facility]cf Goal (LTG) Pt will be able to score at least 25/30 on FGA to show improved balance and low risk for falls. 03/02-improved LTG Duration 05/03/21 strength Short Term Goal (STG) Pt will be indep w/ HEP STG Duration achieved progressing as able Fabrication Welder Goal (LTG) Pt will score at least 1 full MMT grade higher on all LE MMT in order to improve pt joint stability and dec pain and improve strength to improve pt 's ease w/activities. 01/07-improved 03/02-improving LTG Duration 05/03/21 sit to stand Short Term Goal (STG) Pt will improve 5x sit to stand test to no greater than 15 sec (norm 12 sec) to show improved functional ability. 01/07-1 sec improvement STG Duration achieved Fabrication Welder Goal (LTG) Pt will improve 30 sec sit to stand score to 12x to show improved balance and LE strength 03/02-improved to 10 LTG Duration 05/03/21 6 min walk Short Term Goal (STG) Pt will be able to complete 6 min walk test without requring a rest break STG Duration achieved Fabrication Welder Goal (LTG) Pt waill be able to walk 1171ft with no more than 2/10 pain after to show more age related norms for functional abiltiy in gait. 01/07-improved to 1070ft 02/09-1035ft 10 pain 03/02-1138ft 10 LTG Duration 05/03/21 Assessment Summary Assessment Pt cont to progress w/therapy w/good advancement w/strength, functional ability, gait, and balance. He has improved on all testing today but does still show significant hip weakness which likely correlates to his back, hip and knee pain taht limits his functional mobility. He would benefit from cont PT to cont tow rok on these deficits in order to improve his ability do more around his house and cont ADLs w/less pain. Physical Therapy Plan Frequency and Duration Frequency of Treatment 2x/Week Duration of Treatment 2 months Plan of Care Start Date 03/02/21 Plan of Care End Date 05/03/21 Therapeutic Interventions Therapeutic Interventions Aquatic Therapy,Balance Training,Gait Training,Home Exercise Program,Joint Mobilizations,Manual Therapy, Neuromuscular Re-education, Patient/Caregiver Education, Self-Care/Home Management,Soft Tissue Mobilization,Taping, Therapeutic Activities, Therapeutic Exercises Modalities Cold Pack/Ice Massage,Electric Stimulation,Hot Packs Next Visit Focus/Plan Next Note Type Treatment Note Next Visit Plan Aquatic: progress ther ex in shallow and deep for strengthening core stabilization. Patient to do swimming on own. Land: continue to work on core and hip strengthening
--- NOTE | 2021-03-02 11:57 | PT.OPPOC ---
Physical, Occupational & Speech Therapy At [facility] Current Diagnoses Other chronic pain (03/02/21) Low back pain (03/02/21) Muscle weakness (generalized) (03/02/21) Difficulty in walking, not elsewhere classified (03/02/21) Unsteadiness on feet (03/02/21) Abnormal posture (03/02/21) Visit Care Team Role Provider Type Sourav Gamboa MD Attending Provider Non-Staff Family Provider Primary Care Provider Referring Provider Specialty: Medical Address: [address] [place] [address], [id number] Email: Plan Of Care PT-OP-T Assessment and Plan Start: 11/27/20 13:42 Freq: Status: Active Protocol: Document 03/02/21 09:27 [facility] (Rec: 03/02/21 11:57 [facility] [id number]) Physical Therapy Assessment Goals activities Short Term Goal (STG) Pt will be able to go up and down a curb and stairs w/o LOB w/o UE support. 01/07-pt reports improved STG Duration achieved but pt feels off balance Cad Design Engineer Goal (LTG) Pt will be able to go for 1 mile walks with no more than 4 /10 pain. 03/02- still gradually progressing stopping d/t LBP after about 1/4 mile w/5/10 pain LTG Duration 05/03/21 balance Short Term Goal (STG) Pt will be able to do SLS 10 sec B 01/07-L 15 sec, R 2 sec 02/09->30 sec L, R 13 sec STG Duration achieved Fdc Goal (LTG) Pt will be able to score at least 25/30 on FGA to show improved balance and low risk for falls. 03/02-improved LTG Duration 05/03/21 strength Short Term Goal (STG) Pt will be indep w/ HEP STG Duration achieved progressing as able Fdc Goal (LTG) Pt will score at least 1 full MMT grade higher on all LE MMT in order to improve pt joint stability and dec pain and improve strength to improve pt 's ease w/activities. 01/07-improved 03/02-improving LTG Duration 05/03/21 sit to stand Short Term Goal (STG) Pt will improve 5x sit to stand test to no greater than 15 sec (norm 12 sec) to show improved functional ability. 01/07-1 sec improvement STG Duration achieved Cad Design Engineer Goal (LTG) Pt will improve 30 sec sit to stand score to 12x to show improved balance and LE strength 03/02-improved to 10 LTG Duration 05/03/21 6 min walk Short Term Goal (STG) Pt will be able to complete 6 min walk test without requring a rest break STG Duration achieved Fdc Goal (LTG) Pt waill be able to walk 1171ft with no more than 2/10 pain after to show more age related norms for functional abiltiy in gait. 01/07-improved to 1070ft 02/09-1035ft 06/21 pain 03/02-1138ft 06/21 LTG Duration 05/03/21 Assessment Summary Assessment Pt cont to progress w/therapy w/good advancement w/strength, functional ability, gait, and balance. He has improved on all testing today but does still show significant hip weakness which likely correlates to his back, hip and knee pain taht limits his functional mobility. He would benefit from cont PT to cont tow rok on these deficits in order to improve his ability do more around his house and cont ADLs w/less pain. Physical Therapy Plan Frequency and Duration Frequency of Treatment 2x/Week Duration of Treatment 2 months Plan of Care Start Date 03/02/21 Plan of Care End Date 05/03/21 Therapeutic Interventions Therapeutic Interventions Aquatic Therapy,Balance Training,Gait Training,Home Exercise Program,Joint Mobilizations,Manual Therapy, Neuromuscular Re-education, Patient/Caregiver Education, Self-Care/Home Management,Soft Tissue Mobilization,Taping, Therapeutic Activities, Therapeutic Exercises Modalities Cold Pack/Ice Massage,Electric Stimulation,Hot Packs Next Visit Focus/Plan Next Note Type Treatment Note Next Visit Plan Aquatic: progress ther ex in shallow and deep for strengthening core stabilization. Patient to do swimming on own. Land: continue to work on core and hip strengthening Plan of Care Dates Plan of Care Start Date 03/02/21 Plan of Care End Date 05/03/21 Electronically Signed by: Denia Low, PT 03/02/21 0293 Please Sign and Return: I have reviewed this Plan of Care and certify that the skilled therapy services above are required to meet the patient?s needs. Physician Signature Date Printed Name and Credentials Clinical Instructor Signature Printed Name and Credentials
--- NOTE | 2021-03-11 13:25 | PT.OTN ---
Current Diagnoses Other chronic pain (03/11/21) Low back pain (03/11/21) Muscle weakness (generalized) (03/11/21) Difficulty in walking, not elsewhere classified (03/11/21) Unsteadiness on feet (03/11/21) Abnormal posture (03/11/21) Physical Therapy Treatment Note PT-OP-A Visit Information Start: 11/27/20 13:42 Freq: Status: Active Protocol: Document 03/11/21 13:09 LJ (Rec: 03/11/21 13:25 LJ [id number]) Out-Patient Physical Therapy Visit Information Visit Information Visit Type Aquatic Treatment Note Visit Note 04/23 Visit Start Time 11:00 Visit Stop Time 11:45 Total Visit Minutes 45 Visit Number 27 Number of PLASTIC INSTALLER Visits 1 PT-OP-B Current Condition Start: 11/27/20 13:42 Freq: Status: Active Protocol: Document 12/01/20 14:05 [facility] (Rec: 12/01/20 15:18 [facility] [id number]) Current Condition History of Current Condition Onset Date worse over the past year Current Complaints balance, gait History of Current Condition Pt reports increasing difficulty with walking over uneven surfaces and has trouble w/stairs and curbs. In random intervals, R and LLE feels like they may give out ( mostly knee giving out sensation). Pt reports B foot pain that is gout like. pt reprots knees hurt at night with occasionally that discomfort being enough to wake him. Pt reports over the past year, inc difficulty with getting out of stair and feeling imbalance when first getting up. Pt reports LB is stiff and he is discouraged because he is trying to do his regular old PT exercises and trying tto walk but it hurts like hell to his legs, hips, knees, feet. He does stretches including bending over. He feels like his walk is a jarring walk and cannot walk on uneven ground. He has to hold a railing when stepping down and feels really uncertain. Pt reports he has been in pain since he was 22 years old. he does not want palliative care. Pt feels like he is occ feeling anticipatory pain and thinks he may have to talk to a psychiatrist. Pt got an electric bike with a low step through and he is scared to get on it. Pt reports he also can't get off the ground w/o pulling up on something. Pt can't get his leg up underneath himself and cannot lift his leg. Prior Treatments and Tests PT in past Treatment Goals Patient/Caregiver Goals Be able to walk distances & be able to walk a trail, be more confident about balance, have an analysis of gaito understand dysfunction, be able to go up/down stairs w/o feeling unstable Personal Factors Other Personal Factors That May Effect B TSA, R TKA, mult hand Therapy/Recovery surgeries, drainage of R hallux & removal of gout crystals, T11-12, L2-3, 3-4, 4 -5 lami and L4-5 fusion PT-OP-C Subjective Start: 11/27/20 13:42 Freq: Status: Active Protocol: Document 03/11/21 13:09 (Rec: 03/11/21 13:25 [id number]) OP-PT Subjective Patient Comments Patient Comments Pt states he is doing better with balance and strength. He attributes it to aquatic exercise PT-OP-D Balance Start: 11/27/20 13:42 Freq: Status: Active Protocol: Document 12/01/20 14:05 [facility] (Rec: 12/01/20 15:18 [facility] [id number]) Balance Tests Single Limb Standing Single Limb- Right 2sec w./lat lean & UEs uses Single Limb- Left 5 sec w./lat lean & UEs uses PT-OP-E Functional Tests Start: 11/27/20 13:42 Freq: Status: Active Protocol: Document 03/02/21 09:27 [facility] (Rec: 03/02/21 11:57 [facility] [id number]) Functional Tests 6 Minute Walk Test Distance 1138ft Comments 4/10 pain 30 Second Sit to Stand Test Score 10 Five Times Sit to Stand Test Score 12 sec Functional Gait Assessment Score 21 PT-OP-G Mobility & Gait Start: 11/27/20 13:42 Freq: Status: Active Protocol: Document 12/01/20 14:05 [facility] (Rec: 12/01/20 15:18 [facility] [id number]) OP Mobility Evaluation Bed Mobility Rolling able to roll Supine to and from Sit required assist to sit up Transfers Sit to Stand slow and very slow to start moving OP Gait Assessment Comments Gait Comments lat lean w/WB R>L PT-OP-J Posture/Palpation/Skin Start: 11/27/20 13:42 Freq: Status: Active Protocol: Document 12/01/20 14:05 [facility] (Rec: 12/01/20 15:18 [facility] [id number]) Posture Evaluation Comments Posture Comments fwd flex posture PT-OP-M Strength Start: 11/27/20 13:42 Freq: Status: Active Protocol: Document 03/02/21 09:27 [facility] (Rec: 03/02/21 11:57 [facility] [id number]) Hip Strength Hip Manual Muscle Testing Right Flexion (L2) 3+ Fair+ Extension (S1) 3+ Fair+ Abduction 3+ Fair+ External Rotation 4+ Good+ Internal Rotation 5 Normal Comments pain in post knee w/hip ext; Left Flexion (L2) 4 Good Extension (S1) 3 Fair Abduction 3+ Fair+ External Rotation 4+ Good+ Internal Rotation 5 Normal Knee Strength Knee Manual Muscle Testing Right Flexion (S2) 5 Normal Extension (L3) 5 Normal Left Flexion (S2) 5 Normal Extension (L3) 5 Normal Ankle/Foot Strength Ankle and Foot Manual Muscle Testing Right Dorsiflexion (L4) 5 Normal Plantarflexion (S1) 5 Normal Left Dorsiflexion (L4) 5 Normal Plantarflexion (S1) 5 Normal Comments PF tested seated PT-OP-Q Treatments Start: 11/27/20 13:42 Freq: Status: Active Protocol: Document 03/02/21 09:27 [facility] (Rec: 03/02/21 11:57 [facility] [id number]) Therapeutic Exercises Sidelying Exercises hip abd Sidelying Exercise Name cues for no rolling back Side bilateral Reps/Minutes 5 Standing Exercises hip abd Side bilateral Reps/Minutes 12 Comments cues for upright position hip ext Side bilateral Comments cues for upright position Self-Care/Home Management Treatment Education Other Education edu to start to gradually increase his walking and tracking his distance, time, elevation and pain w/watch, edu to cont to advance that. Edu to try to do a bout of walking then rest on bench for 5 min then go again. Encouraged to cont to work on hip strength at home PT-OP-S Aquatic Treatment Start: 01/14/21 14:10 Freq: Status: Active Protocol: Document 03/11/21 13:09 [facility] (Rec: 03/11/21 13:25 LJ [id number]) Aquatics Treatment Pool Entry/Exit Pool Entry/Exit Method Stairs Assistance Independent Water Walking Lunge Walk Water Level Waist Level circumduction f/b Water Level Chest Level step up/down Water Level Neck Level Walking Equipment 8 box Comments forward and side, chest level fwd, bck, side, may, kick Water Level Chest Level Comments side with green band Lower Extremity Exercises LE stretches Details ITB, groin, quad Body Position Standing Water Level Chest Level Comments standing at wall hip flex/ext, ab/ad, circles, heel raise, toe raise Body Position Standing Water Level Chest Level Reps/Duration 10x B Comments at wall, min UE support Lower Extremity Stretches free the hip Body Position Standing Water Level Waist Level HS, Hip flexors Details at wall Body Position Standing Reps/Duration 30 x2 B Spinal Exercises rotations at wall Body Position Sitting Water Level Chest Level Equipment BBs held underwater Reps/Duration 10 rotations x2 noodle pull down at wall Body Position Sitting Water Level Chest Level Equipment Large Noodle Reps/Duration 10 x 2 Balance SLS Reps/Duration 30 ea LE Comments include 12 SL squats B [place] Activities [place] Activities Bicycle,Bicycle Backwards, Cross Country,Running,Hip Abduction/Adduction Equipment belt Duration 14 PT-OP-T Assessment and Plan Start: 11/27/20 13:42 Freq: Status: Active Protocol: Document 03/11/21 13:09 [facility] (Rec: 03/11/21 13:25 [id number]) Physical Therapy Assessment Goals activities Short Term Goal (STG) Pt will be able to go up and down a curb and stairs w/o LOB w/o UE support. 01/07-pt reports improved STG Duration achieved but pt feels off balance Rn Documentation Specialist Goal (LTG) Pt will be able to go for 1 mile walks with no more than 4 /10 pain. 03/02- still gradually progressing stopping d/t LBP after about 1/4 mile w/5/10 pain LTG Duration 05/03/21 balance Short Term Goal (STG) Pt will be able to do SLS 10 sec B 01/07-L 15 sec, R 2 sec 02/09->30 sec L, R 13 sec STG Duration achieved Rn Documentation Specialist Goal (LTG) Pt will be able to score at least 25/30 on FGA to show improved balance and low risk for falls. 03/02-improved LTG Duration 05/03/21 strength Short Term Goal (STG) Pt will be indep w/ HEP STG Duration achieved progressing as able Assisted Goal (LTG) Pt will score at least 1 full MMT grade higher on all LE MMT in order to improve pt joint stability and dec pain and improve strength to improve pt 's ease w/activities. 01/07-improved 03/02-improving LTG Duration 05/03/21 sit to stand Short Term Goal (STG) Pt will improve 5x sit to stand test to no greater than 15 sec (norm 12 sec) to show improved functional ability. 01/07-1 sec improvement STG Duration achieved Rn Documentation Specialist Goal (LTG) Pt will improve 30 sec sit to stand score to 12x to show improved balance and LE strength 03/02-improved to 10 LTG Duration 05/03/21 6 min walk Short Term Goal (STG) Pt will be able to complete 6 min walk test without requring a rest break STG Duration achieved Assisted Goal (LTG) Pt waill be able to walk 1171ft with no more than 2/10 pain after to show more age related norms for functional abiltiy in gait. 01/07-improved to 1070ft 02/09-1035ft 06/21 pain 03/02-1138ft 06/21 LTG Duration 05/03/21 Assessment Summary Assessment LAND:Pt cont to progress w/ therapy w/good advancement w/ strength, functional ability, gait, and balance. He has improved on all testing today but does still show significant hip weakness which likely correlates to his back , hip and knee pain taht limits his functional mobility . He would benefit from cont PT to cont tow rok on these deficits in order to improve his ability do more around his house and cont ADLs w/less pain. AQUATICS: Pt improving with coordinationa and gait activities. Improvement with SLS but challenged with SL squats without handhold on wall. Progress pt with small resistant equipment with hip exercises as long as his back will tolerate it. Similarly, advance core strengthening exercises as well. Physical Therapy Plan Frequency and Duration Frequency of Treatment 2x/Week Duration of Treatment 2 months Plan of Care Start Date 03/02/21 Plan of Care End Date 05/03/21 Therapeutic Interventions Therapeutic Interventions Aquatic Therapy,Balance Training,Gait Training,Home Exercise Program,Joint Mobilizations,Manual Therapy, Neuromuscular Re-education, Patient/Caregiver Education, Self-Care/Home Management,Soft Tissue Mobilization,Taping, Therapeutic Activities, Therapeutic Exercises Modalities Cold Pack/Ice Massage,Electric Stimulation,Hot Packs Next Visit Focus/Plan Next Note Type Treatment Note Next Visit Plan Aquatic: progress ther ex in shallow and deep for strengthening core stabilization. Advance hip and LE strengthening exercises . Land: continue to work on core and hip strengthening
--- NOTE | 2021-03-16 14:38 | PT.OTN ---
Current Diagnoses Other chronic pain (03/16/21) Low back pain (03/16/21) Muscle weakness (generalized) (03/16/21) Difficulty in walking, not elsewhere classified (03/16/21) Unsteadiness on feet (03/16/21) Abnormal posture (03/16/21) Physical Therapy Treatment Note PT-OP-A Visit Information Start: 11/27/20 13:42 Freq: Status: Active Protocol: Document 03/16/21 14:27 LJ (Rec: 03/16/21 14:38 LJ [id number]) Out-Patient Physical Therapy Visit Information Visit Information Visit Type Aquatic Treatment Note Visit Note 04/23 Visit Start Time 11:45 Visit Stop Time 12:30 Total Visit Minutes 45 Visit Number 28 Number of PROTOTYPE ENGINEER Visits 2 PT-OP-B Current Condition Start: 11/27/20 13:42 Freq: Status: Active Protocol: Document 12/01/20 14:05 [facility] (Rec: 12/01/20 15:18 [facility] [id number]) Current Condition History of Current Condition Onset Date worse over the past year Current Complaints balance, gait History of Current Condition Pt reports increasing difficulty with walking over uneven surfaces and has trouble w/stairs and curbs. In random intervals, R and LLE feels like they may give out ( mostly knee giving out sensation). Pt reports B foot pain that is gout like. pt reprots knees hurt at night with occasionally that discomfort being enough to wake him. Pt reports over the past year, inc difficulty with getting out of stair and feeling imbalance when first getting up. Pt reports LB is stiff and he is discouraged because he is trying to do his regular old PT exercises and trying tto walk but it hurts like hell to his legs, hips, knees, feet. He does stretches including bending over. He feels like his walk is a jarring walk and cannot walk on uneven ground. He has to hold a railing when stepping down and feels really uncertain. Pt reports he has been in pain since he was 22 years old. he does not want palliative care. Pt feels like he is occ feeling anticipatory pain and thinks he may have to talk to a psychiatrist. Pt got an electric bike with a low step through and he is scared to get on it. Pt reports he also can't get off the ground w/o pulling up on something. Pt can't get his leg up underneath himself and cannot lift his leg. Prior Treatments and Tests PT in past Treatment Goals Patient/Caregiver Goals Be able to walk distances & be able to walk a trail, be more confident about balance, have an analysis of gaito understand dysfunction, be able to go up/down stairs w/o feeling unstable Personal Factors Other Personal Factors That May Effect B TSA, R TKA, mult hand Therapy/Recovery surgeries, drainage of R hallux & removal of gout crystals, T11-12, L2-3, 3-4, 4 -5 lami and L4-5 fusion PT-OP-C Subjective Start: 11/27/20 13:42 Freq: Status: Active Protocol: Document 03/16/21 14:27 LJ (Rec: 03/16/21 14:38 LJ [id number]) OP-PT Subjective Patient Comments Patient Comments Pt states he is doing better and feels aquatic therapy is helping the most. PT-OP-D Balance Start: 11/27/20 13:42 Freq: Status: Active Protocol: Document 12/01/20 14:05 [facility] (Rec: 12/01/20 15:18 [facility] [id number]) Balance Tests Single Limb Standing Single Limb- Right 2sec w./lat lean & UEs uses Single Limb- Left 5 sec w./lat lean & UEs uses PT-OP-E Functional Tests Start: 11/27/20 13:42 Freq: Status: Active Protocol: Document 03/02/21 09:27 [facility] (Rec: 03/02/21 11:57 [facility] [id number]) Functional Tests 6 Minute Walk Test Distance 1138ft Comments 4/10 pain 30 Second Sit to Stand Test Score 10 Five Times Sit to Stand Test Score 12 sec Functional Gait Assessment Score 21 PT-OP-G Mobility & Gait Start: 11/27/20 13:42 Freq: Status: Active Protocol: Document 12/01/20 14:05 [facility] (Rec: 12/01/20 15:18 [facility] [id number]) OP Mobility Evaluation Bed Mobility Rolling able to roll Supine to and from Sit required assist to sit up Transfers Sit to Stand slow and very slow to start moving OP Gait Assessment Comments Gait Comments lat lean w/WB R>L PT-OP-J Posture/Palpation/Skin Start: 11/27/20 13:42 Freq: Status: Active Protocol: Document 12/01/20 14:05 [facility] (Rec: 12/01/20 15:18 [facility] [id number]) Posture Evaluation Comments Posture Comments fwd flex posture PT-OP-M Strength Start: 11/27/20 13:42 Freq: Status: Active Protocol: Document 03/02/21 09:27 [facility] (Rec: 03/02/21 11:57 [facility] [id number]) Hip Strength Hip Manual Muscle Testing Right Flexion (L2) 3+ Fair+ Extension (S1) 3+ Fair+ Abduction 3+ Fair+ External Rotation 4+ Good+ Internal Rotation 5 Normal Comments pain in post knee w/hip ext; Left Flexion (L2) 4 Good Extension (S1) 3 Fair Abduction 3+ Fair+ External Rotation 4+ Good+ Internal Rotation 5 Normal Knee Strength Knee Manual Muscle Testing Right Flexion (S2) 5 Normal Extension (L3) 5 Normal Left Flexion (S2) 5 Normal Extension (L3) 5 Normal Ankle/Foot Strength Ankle and Foot Manual Muscle Testing Right Dorsiflexion (L4) 5 Normal Plantarflexion (S1) 5 Normal Left Dorsiflexion (L4) 5 Normal Plantarflexion (S1) 5 Normal Comments PF tested seated PT-OP-Q Treatments Start: 11/27/20 13:42 Freq: Status: Active Protocol: Document 03/02/21 09:27 [facility] (Rec: 03/02/21 11:57 [facility] [id number]) Therapeutic Exercises Sidelying Exercises hip abd Sidelying Exercise Name cues for no rolling back Side bilateral Reps/Minutes 5 Standing Exercises hip abd Side bilateral Reps/Minutes 12 Comments cues for upright position hip ext Side bilateral Comments cues for upright position Self-Care/Home Management Treatment Education Other Education edu to start to gradually increase his walking and tracking his distance, time, elevation and pain w/watch, edu to cont to advance that. Edu to try to do a bout of walking then rest on bench for 5 min then go again. Encouraged to cont to work on hip strength at home PT-OP-S Aquatic Treatment Start: 01/14/21 14:10 Freq: Status: Active Protocol: Document 03/16/21 14:27 [facility] (Rec: 03/16/21 14:38 LJ [id number]) Aquatics Treatment Pool Entry/Exit Pool Entry/Exit Method Stairs Assistance Independent Water Walking Lunge Walk Water Level Waist Level circumduction f/b Water Level Chest Level step up/down Water Level Chest Level Walking Equipment 8 box x3 Comments all directions fwd, bck, side, may, may kick Water Level Chest Level Walking Equipment Resistance Fins Lower Extremity Exercises LE stretches Details ITB, groin, quad Body Position Standing Water Level Chest Level Comments standing at wall hip flex/ext, ab/ad, circles, heel raise, toe raise Body Position Standing Water Level Chest Level Equipment Resistance Fins Reps/Duration 10x B Comments at wall, min UE support Lower Extremity Stretches free the hip Body Position Standing Water Level Waist Level HS, Hip flexors Details at wall Body Position Standing Reps/Duration 30 x2 B [place] Activities [place] Activities Bicycle,Bicycle Backwards, Cross Country,Running,Hip Abduction/Adduction Other Activities pendulum T hand with LE mvmt Equipment belt, M BBs Duration 23 PT-OP-T Assessment and Plan Start: 11/27/20 13:42 Freq: Status: Active Protocol: Document 03/16/21 14:27 [facility] (Rec: 03/16/21 14:38 [facility] [id number]) Physical Therapy Assessment Rehab Potential Rehabilitation Potential Good Evaluation Complexity Number of Personal Factors/Comorbidities 3 or More Number of Body Systems Impaired 4 or More Clinical Presentation at Evaluation Evolving Impairments Impairments Activity Tolerance,Balance, Functional Activities, Functional Mobility,Gait,Pain, Posture,ROM,Soft Tissue Mobility,Strength,Transfers Goals activities Short Term Goal (STG) Pt will be able to go up and down a curb and stairs w/o LOB w/o UE support. 01/07-pt reports improved STG Duration achieved but pt feels off balance Deli Worker Goal (LTG) Pt will be able to go for 1 mile walks with no more than 4 /10 pain. 03/02- still gradually progressing stopping d/t LBP after about 1/4 mile w/5/10 pain LTG Duration 05/03/21 balance Short Term Goal (STG) Pt will be able to do SLS 10 sec B 01/07-L 15 sec, R 2 sec 02/09->30 sec L, R 13 sec STG Duration achieved Mcfp Goal (LTG) Pt will be able to score at least 25/30 on FGA to show improved balance and low risk for falls. 03/02-improved LTG Duration 05/03/21 strength Short Term Goal (STG) Pt will be indep w/ HEP STG Duration achieved progressing as able Mcfp Goal (LTG) Pt will score at least 1 full MMT grade higher on all LE MMT in order to improve pt joint stability and dec pain and improve strength to improve pt 's ease w/activities. 01/07-improved 03/02-improving LTG Duration 05/03/21 sit to stand Short Term Goal (STG) Pt will improve 5x sit to stand test to no greater than 15 sec (norm 12 sec) to show improved functional ability. 01/07-1 sec improvement STG Duration achieved Mcfp Goal (LTG) Pt will improve 30 sec sit to stand score to 12x to show improved balance and LE strength 03/02-improved to 10 LTG Duration 05/03/21 6 min walk Short Term Goal (STG) Pt will be able to complete 6 min walk test without requring a rest break STG Duration achieved Deli Worker Goal (LTG) Pt waill be able to walk 1171ft with no more than 2/10 pain after to show more age related norms for functional abiltiy in gait. 01/07-improved to 1070ft 02/09-1035ft /10 pain 03/02-1138ft 410 LTG Duration 05/03/21 Assessment Summary Assessment LAND:Pt cont to progress w/ therapy w/good advancement w/ strength, functional ability, gait, and balance. He has improved on all testing today but does still show significant hip weakness which likely correlates to his back , hip and knee pain taht limits his functional mobility . He would benefit from cont PT to cont tow rok on these deficits in order to improve his ability do more around his house and cont ADLs w/less pain. AQUATICS: Pt improving with coordinationa and gait activities. Pt toleratd med ankle fins with hip exercises without pain in back. Advance core strengthening exercises as well as cardio in deep to improve strength. Advance shallow water exercises for balance and core strengthening . Physical Therapy Plan Frequency and Duration Frequency of Treatment 2x/Week Duration of Treatment 2 months Plan of Care Start Date 03/02/21 Plan of Care End Date 05/03/21 Therapeutic Interventions Therapeutic Interventions Aquatic Therapy,Balance Training,Gait Training,Home Exercise Program,Joint Mobilizations,Manual Therapy, Neuromuscular Re-education, Patient/Caregiver Education, Self-Care/Home Management,Soft Tissue Mobilization,Taping, Therapeutic Activities, Therapeutic Exercises Modalities Cold Pack/Ice Massage,Electric Stimulation,Hot Packs Next Visit Focus/Plan Next Note Type Treatment Note Next Visit Plan Aquatic: progress ther ex in shallow and deep for strengthening core stabilization. Advance hip and LE strengthening exercises with continued fin use Land: continue to work on core and hip strengthening
--- NOTE | 2021-03-18 09:03 | PT.OTN ---
Current Diagnoses Other chronic pain (03/18/21) Low back pain (03/18/21) Muscle weakness (generalized) (03/18/21) Difficulty in walking, not elsewhere classified (03/18/21) Unsteadiness on feet (03/18/21) Abnormal posture (03/18/21) Physical Therapy Treatment Note PT-OP-A Visit Information Start: 11/27/20 13:42 Freq: Status: Active Protocol: Document 03/18/21 08:16 [facility] (Rec: 03/18/21 09:03 [facility] [id number]) Out-Patient Physical Therapy Visit Information Visit Information Visit Type Treatment Note Visit Note 05/21 Visit Start Time 08:17 Visit Stop Time 08:57 Total Visit Minutes 40 Visit Number 29 Number of MUFFLE OPERATOR Visits 0 PT-OP-B Current Condition Start: 11/27/20 13:42 Freq: Status: Active Protocol: Document 12/01/20 14:05 [facility] (Rec: 12/01/20 15:18 [facility] [id number]) Current Condition History of Current Condition Onset Date worse over the past year Current Complaints balance, gait History of Current Condition Pt reports increasing difficulty with walking over uneven surfaces and has trouble w/stairs and curbs. In random intervals, R and LLE feels like they may give out ( mostly knee giving out sensation). Pt reports B foot pain that is gout like. pt reprots knees hurt at night with occasionally that discomfort being enough to wake him. Pt reports over the past year, inc difficulty with getting out of stair and feeling imbalance when first getting up. Pt reports LB is stiff and he is discouraged because he is trying to do his regular old PT exercises and trying tto walk but it hurts like hell to his legs, hips, knees, feet. He does stretches including bending over. He feels like his walk is a jarring walk and cannot walk on uneven ground. He has to hold a railing when stepping down and feels really uncertain. Pt reports he has been in pain since he was 22 years old. he does not want palliative care. Pt feels like he is occ feeling anticipatory pain and thinks he may have to talk to a psychiatrist. Pt got an electric bike with a low step through and he is scared to get on it. Pt reports he also can't get off the ground w/o pulling up on something. Pt can't get his leg up underneath himself and cannot lift his leg. Prior Treatments and Tests PT in past Treatment Goals Patient/Caregiver Goals Be able to walk distances & be able to walk a trail, be more confident about balance, have an analysis of gaito understand dysfunction, be able to go up/down stairs w/o feeling unstable Personal Factors Other Personal Factors That May Effect B TSA, R TKA, mult hand Therapy/Recovery surgeries, drainage of R hallux & removal of gout crystals, T11-12, L2-3, 3-4, 4 -5 lami and L4-5 fusion PT-OP-C Subjective Start: 11/27/20 13:42 Freq: Status: Active Protocol: Document 03/18/21 08:16 [facility] (Rec: 03/18/21 09:03 [facility] [id number]) OP-PT Subjective Patient Comments Patient Comments Pt reports pool presents a really good workout. PT-OP-D Balance Start: 11/27/20 13:42 Freq: Status: Active Protocol: Document 12/01/20 14:05 [facility] (Rec: 12/01/20 15:18 [facility] [id number]) Balance Tests Single Limb Standing Single Limb- Right 2sec w./lat lean & UEs uses Single Limb- Left 5 sec w./lat lean & UEs uses PT-OP-E Functional Tests Start: 11/27/20 13:42 Freq: Status: Active Protocol: Document 03/02/21 09:27 [facility] (Rec: 03/02/21 11:57 [facility] [id number]) Functional Tests 6 Minute Walk Test Distance 1138ft Comments 4/10 pain 30 Second Sit to Stand Test Score 10 Five Times Sit to Stand Test Score 12 sec Functional Gait Assessment Score 21 PT-OP-G Mobility & Gait Start: 11/27/20 13:42 Freq: Status: Active Protocol: Document 12/01/20 14:05 [facility] (Rec: 12/01/20 15:18 [facility] [id number]) OP Mobility Evaluation Bed Mobility Rolling able to roll Supine to and from Sit required assist to sit up Transfers Sit to Stand slow and very slow to start moving OP Gait Assessment Comments Gait Comments lat lean w/WB R>L PT-OP-J Posture/Palpation/Skin Start: 11/27/20 13:42 Freq: Status: Active Protocol: Document 12/01/20 14:05 [facility] (Rec: 12/01/20 15:18 [facility] [id number]) Posture Evaluation Comments Posture Comments fwd flex posture PT-OP-M Strength Start: 11/27/20 13:42 Freq: Status: Active Protocol: Document 03/02/21 09:27 [facility] (Rec: 03/02/21 11:57 [facility] [id number]) Hip Strength Hip Manual Muscle Testing Right Flexion (L2) 3+ Fair+ Extension (S1) 3+ Fair+ Abduction 3+ Fair+ External Rotation 4+ Good+ Internal Rotation 5 Normal Comments pain in post knee w/hip ext; Left Flexion (L2) 4 Good Extension (S1) 3 Fair Abduction 3+ Fair+ External Rotation 4+ Good+ Internal Rotation 5 Normal Knee Strength Knee Manual Muscle Testing Right Flexion (S2) 5 Normal Extension (L3) 5 Normal Left Flexion (S2) 5 Normal Extension (L3) 5 Normal Ankle/Foot Strength Ankle and Foot Manual Muscle Testing Right Dorsiflexion (L4) 5 Normal Plantarflexion (S1) 5 Normal Left Dorsiflexion (L4) 5 Normal Plantarflexion (S1) 5 Normal Comments PF tested seated PT-OP-Q Treatments Start: 11/27/20 13:42 Freq: Status: Active Protocol: Document 03/18/21 08:16 [facility] (Rec: 03/18/21 09:03 [facility] [id number]) Therapeutic Exercises Sidelying Exercises clamshell Side bilateral Reps/Minutes 15 hip abd Sidelying Exercise Name cues for no rolling back Side bilateral Reps/Minutes 15 Standing Exercises hip abd Side bilateral Reps/Minutes 2x12 Comments cues for upright position hip ext Side bilateral Reps/Minutes 20 Comments cues for upright position step up Standing Exercise Name 5 in plus blue foam Side bilateral Equipment Used rail prn Reps/Minutes 10 Manual Therapy Treatment Soft Tissue Mobilization thigh Body Location quad Mobilization Type Sustained Pressure Intensity/Depth Moderate Body Position Hooklying Comments w/ER/IR IT band Body Location R Mobilization Type Rolling,Strumming Body Position Hooklying Comments w/IR/ER PT-OP-S Aquatic Treatment Start: 01/14/21 14:10 Freq: Status: Active Protocol: Document 03/16/21 14:27 [facility] (Rec: 03/16/21 14:38 [facility] [id number]) Aquatics Treatment Pool Entry/Exit Pool Entry/Exit Method Stairs Assistance Independent Water Walking Lunge Walk Water Level Waist Level circumduction f/b Water Level Chest Level step up/down Water Level Chest Level Walking Equipment 8 box x3 Comments all directions fwd, bck, side, may, may kick Water Level Chest Level Walking Equipment Resistance Fins Lower Extremity Exercises LE stretches Details ITB, groin, quad Body Position Standing Water Level Chest Level Comments standing at wall hip flex/ext, ab/ad, circles, heel raise, toe raise Body Position Standing Water Level Chest Level Equipment Resistance Fins Reps/Duration 10x B Comments at wall, min UE support Lower Extremity Stretches free the hip Body Position Standing Water Level Waist Level HS, Hip flexors Details at wall Body Position Standing Reps/Duration 30 x2 B [place] Activities [place] Activities Bicycle,Bicycle Backwards, Cross Country,Running,Hip Abduction/Adduction Other Activities pendulum T hand with LE mvmt Equipment belt, M BBs Duration 23 PT-OP-T Assessment and Plan Start: 11/27/20 13:42 Freq: Status: Active Protocol: Document 03/18/21 08:16 [facility] (Rec: 03/18/21 09:03 [facility] [id number]) Physical Therapy Assessment Goals activities Short Term Goal (STG) Pt will be able to go up and down a curb and stairs w/o LOB w/o UE support. 01/07-pt reports improved STG Duration achieved but pt feels off balance Custodial Goal (LTG) Pt will be able to go for 1 mile walks with no more than 4 /10 pain. 03/02- still gradually progressing stopping d/t LBP after about 1/4 mile w/5/10 pain LTG Duration 05/03/21 balance Short Term Goal (STG) Pt will be able to do SLS 10 sec B 01/07-L 15 sec, R 2 sec 02/09->30 sec L, R 13 sec STG Duration achieved Bobbin Painter Goal (LTG) Pt will be able to score at least 25/30 on FGA to show improved balance and low risk for falls. 03/02-improved LTG Duration 05/03/21 strength Short Term Goal (STG) Pt will be indep w/ HEP STG Duration achieved progressing as able Custodial Goal (LTG) Pt will score at least 1 full MMT grade higher on all LE MMT in order to improve pt joint stability and dec pain and improve strength to improve pt 's ease w/activities. 01/07-improved 03/02-improving LTG Duration 05/03/21 sit to stand Short Term Goal (STG) Pt will improve 5x sit to stand test to no greater than 15 sec (norm 12 sec) to show improved functional ability. 01/07-1 sec improvement STG Duration achieved Bobbin Painter Goal (LTG) Pt will improve 30 sec sit to stand score to 12x to show improved balance and LE strength 03/02-improved to 10 LTG Duration 05/03/21 6 min walk Short Term Goal (STG) Pt will be able to complete 6 min walk test without requring a rest break STG Duration achieved Custodial Goal (LTG) Pt waill be able to walk 1171ft with no more than 2/10 pain after to show more age related norms for functional abiltiy in gait. 01/07-improved to 1070ft 02/09-1035ft 4/10 pain 03/02-1138ft 410 LTG Duration 05/03/21 Assessment Summary Assessment Pt did well with exercises today but did require cueing throuhgout for form and slow controlled motion. He still shows signfiicant weakness into abd. Tightness lat in R thigh likely causing some of his inc knee discomfort tooday . Physical Therapy Plan Frequency and Duration Frequency of Treatment 2x/Week Duration of Treatment 2 months Plan of Care Start Date 03/02/21 Plan of Care End Date 05/03/21 Next Visit Focus/Plan Next Note Type Treatment Note Next Visit Plan Aquatic: progress ther ex in shallow and deep for strengthening core stabilization. Advance hip and LE strengthening exercises with continued fin use Land: continue to work on core and hip strengthening
--- NOTE | 2021-03-24 10:05 | PT.OTN ---
Current Diagnoses Other chronic pain (03/24/21) Low back pain (03/24/21) Muscle weakness (generalized) (03/24/21) Difficulty in walking, not elsewhere classified (03/24/21) Unsteadiness on feet (03/24/21) Abnormal posture (03/24/21) Physical Therapy Treatment Note PT-OP-A Visit Information Start: 11/27/20 13:42 Freq: Status: Active Protocol: Document 03/24/21 09:06 [facility] (Rec: 03/24/21 10:05 [facility] [id number]) Out-Patient Physical Therapy Visit Information Visit Information Visit Type Treatment Note Visit Note 06/21 Visit Start Time 09:05 Visit Stop Time 09:47 Total Visit Minutes 42 Visit Number 30 Number of CLAIMS ANALYST Visits 0 PT-OP-B Current Condition Start: 11/27/20 13:42 Freq: Status: Active Protocol: Document 12/01/20 14:05 [facility] (Rec: 12/01/20 15:18 [facility] [id number]) Current Condition History of Current Condition Onset Date worse over the past year Current Complaints balance, gait History of Current Condition Pt reports increasing difficulty with walking over uneven surfaces and has trouble w/stairs and curbs. In random intervals, R and LLE feels like they may give out ( mostly knee giving out sensation). Pt reports B foot pain that is gout like. pt reprots knees hurt at night with occasionally that discomfort being enough to wake him. Pt reports over the past year, inc difficulty with getting out of stair and feeling imbalance when first getting up. Pt reports LB is stiff and he is discouraged because he is trying to do his regular old PT exercises and trying tto walk but it hurts like hell to his legs, hips, knees, feet. He does stretches including bending over. He feels like his walk is a jarring walk and cannot walk on uneven ground. He has to hold a railing when stepping down and feels really uncertain. Pt reports he has been in pain since he was 22 years old. he does not want palliative care. Pt feels like he is occ feeling anticipatory pain and thinks he may have to talk to a psychiatrist. Pt got an electric bike with a low step through and he is scared to get on it. Pt reports he also can't get off the ground w/o pulling up on something. Pt can't get his leg up underneath himself and cannot lift his leg. Prior Treatments and Tests PT in past Treatment Goals Patient/Caregiver Goals Be able to walk distances & be able to walk a trail, be more confident about balance, have an analysis of gaito understand dysfunction, be able to go up/down stairs w/o feeling unstable Personal Factors Other Personal Factors That May Effect B TSA, R TKA, mult hand Therapy/Recovery surgeries, drainage of R hallux & removal of gout crystals, T11-12, L2-3, 3-4, 4 -5 lami and L4-5 fusion PT-OP-C Subjective Start: 11/27/20 13:42 Freq: Status: Active Protocol: Document 03/24/21 09:06 [facility] (Rec: 03/24/21 10:05 [facility] [id number]) OP-PT Subjective Patient Comments Patient Comments Pt reports doing 1 walk in town but did not measure the distance PT-OP-D Balance Start: 11/27/20 13:42 Freq: Status: Active Protocol: Document 12/01/20 14:05 [facility] (Rec: 12/01/20 15:18 [facility] [id number]) Balance Tests Single Limb Standing Single Limb- Right 2sec w./lat lean & UEs uses Single Limb- Left 5 sec w./lat lean & UEs uses PT-OP-E Functional Tests Start: 11/27/20 13:42 Freq: Status: Active Protocol: Document 03/02/21 09:27 [facility] (Rec: 03/02/21 11:57 [facility] [id number]) Functional Tests 6 Minute Walk Test Distance 1138ft Comments 4/10 pain 30 Second Sit to Stand Test Score 10 Five Times Sit to Stand Test Score 12 sec Functional Gait Assessment Score 21 PT-OP-G Mobility & Gait Start: 11/27/20 13:42 Freq: Status: Active Protocol: Document 12/01/20 14:05 [facility] (Rec: 12/01/20 15:18 [facility] [id number]) OP Mobility Evaluation Bed Mobility Rolling able to roll Supine to and from Sit required assist to sit up Transfers Sit to Stand slow and very slow to start moving OP Gait Assessment Comments Gait Comments lat lean w/WB R>L PT-OP-J Posture/Palpation/Skin Start: 11/27/20 13:42 Freq: Status: Active Protocol: Document 12/01/20 14:05 [facility] (Rec: 12/01/20 15:18 [facility] [id number]) Posture Evaluation Comments Posture Comments fwd flex posture PT-OP-M Strength Start: 11/27/20 13:42 Freq: Status: Active Protocol: Document 03/02/21 09:27 [facility] (Rec: 03/02/21 11:57 [facility] [id number]) Hip Strength Hip Manual Muscle Testing Right Flexion (L2) 3+ Fair+ Extension (S1) 3+ Fair+ Abduction 3+ Fair+ External Rotation 4+ Good+ Internal Rotation 5 Normal Comments pain in post knee w/hip ext; Left Flexion (L2) 4 Good Extension (S1) 3 Fair Abduction 3+ Fair+ External Rotation 4+ Good+ Internal Rotation 5 Normal Knee Strength Knee Manual Muscle Testing Right Flexion (S2) 5 Normal Extension (L3) 5 Normal Left Flexion (S2) 5 Normal Extension (L3) 5 Normal Ankle/Foot Strength Ankle and Foot Manual Muscle Testing Right Dorsiflexion (L4) 5 Normal Plantarflexion (S1) 5 Normal Left Dorsiflexion (L4) 5 Normal Plantarflexion (S1) 5 Normal Comments PF tested seated PT-OP-Q Treatments Start: 11/27/20 13:42 Freq: Status: Active Protocol: Document 03/24/21 09:06 [facility] (Rec: 03/24/21 10:05 [facility] [id number]) Gym Equipment Shuttle Balance red clips Details fwd & side Comments fwd: WBOS & NBOS w/head tunrs, staggered stance side: WBOS & NBOS Therapeutic Exercises Standing Exercises step down Standing Exercise Name 3 in Side bilateral Equipment Used shuttle red step Reps/Minutes 15 ea hip abd Side bilateral Reps/Minutes 20 Comments cues for upright position hip ext Side bilateral Reps/Minutes 20 Comments cues for upright position step up Standing Exercise Name 5 in plus blue foam Side bilateral Equipment Used rail prn Reps/Minutes 10 sidestep Standing Exercise Name step up Side bilateral Equipment Used 5 in Reps/Minutes 10 Manual Therapy Treatment Soft Tissue Mobilization thigh Body Location quad lat R Mobilization Type Rolling,Strumming Intensity/Depth Moderate Body Position Hooklying IT band Body Location R Mobilization Type Rolling,Strumming Body Position Hooklying Neuro Re-Education Treatment Balance Activities foam pad Details staggered stance EO/EC trials B PT-OP-S Aquatic Treatment Start: 01/14/21 14:10 Freq: Status: Active Protocol: Document 03/16/21 14:27 [facility] (Rec: 03/16/21 14:38 [facility] [id number]) Aquatics Treatment Pool Entry/Exit Pool Entry/Exit Method Stairs Assistance Independent Water Walking Lunge Walk Water Level Waist Level circumduction f/b Water Level Chest Level step up/down Water Level Chest Level Walking Equipment 8 box x3 Comments all directions fwd, bck, , may, may kick Water Level Chest Level Walking Equipment Resistance Fins Lower Extremity Exercises LE stretches Details ITB, groin, quad Body Position Standing Water Level Chest Level Comments standing at wall hip flex/ext, ab/ad, circles, heel raise, toe raise Body Position Standing Water Level Chest Level Equipment Resistance Fins Reps/Duration 10x B Comments at wall, min UE support Lower Extremity Stretches free the hip Body Position Standing Water Level Waist Level HS, Hip flexors Details at wall Body Position Standing Reps/Duration 30 x2 B [place] Activities [place] Activities Bicycle,Bicycle Backwards, Cross Country,Running,Hip Abduction/Adduction Other Activities pendulum T hand with LE mvmt Equipment belt, M BBs Duration 23 PT-OP-T Assessment and Plan Start: 11/27/20 13:42 Freq: Status: Active Protocol: Document 03/24/21 09:06 [facility] (Rec: 03/24/21 10:05 [facility] [id number]) Physical Therapy Assessment Goals activities Short Term Goal (STG) Pt will be able to go up and down a curb and stairs w/o LOB w/o UE support. 01/07-pt reports improved STG Duration achieved but pt feels off balance Live Ammunition Inspector Goal (LTG) Pt will be able to go for 1 mile walks with no more than 4 /10 pain. 03/02- still gradually progressing stopping d/t LBP after about 1/4 mile w/5/10 pain LTG Duration 05/03/21 balance Short Term Goal (STG) Pt will be able to do SLS 10 sec B 01/07-L 15 sec, R 2 sec 02/09->30 sec L, R 13 sec STG Duration achieved Care Home Goal (LTG) Pt will be able to score at least 25/30 on FGA to show improved balance and low risk for falls. 03/02-improved LTG Duration 05/03/21 strength Short Term Goal (STG) Pt will be indep w/ HEP STG Duration achieved progressing as able Live Ammunition Inspector Goal (LTG) Pt will score at least 1 full MMT grade higher on all LE MMT in order to improve pt joint stability and dec pain and improve strength to improve pt 's ease w/activities. 01/07-improved 03/02-improving LTG Duration 05/03/21 sit to stand Short Term Goal (STG) Pt will improve 5x sit to stand test to no greater than 15 sec (norm 12 sec) to show improved functional ability. 01/07-1 sec improvement STG Duration achieved Live Ammunition Inspector Goal (LTG) Pt will improve 30 sec sit to stand score to 12x to show improved balance and LE strength 03/02-improved to 10 LTG Duration 05/03/21 6 min walk Short Term Goal (STG) Pt will be able to complete 6 min walk test without requring a rest break STG Duration achieved Care Home Goal (LTG) Pt waill be able to walk 1171ft with no more than 2/10 pain after to show more age related norms for functional abiltiy in gait. 01/07-improved to 1070ft 02/09-1035ft 4/10 pain 03/02-1138ft 410 LTG Duration 05/03/21 Assessment Summary Assessment Pt did better w/control w/step downs and can now do standing abd and ext w/o fwd flex of trunk. he is challenged by uneven surfaces especially w/ head turns and/or EC. Physical Therapy Plan Frequency and Duration Frequency of Treatment 2x/Week Duration of Treatment 2 months Plan of Care Start Date 03/02/21 Plan of Care End Date 05/03/21 Next Visit Focus/Plan Next Note Type Treatment Note Next Visit Plan Aquatic: progress ther ex in shallow and deep for strengthening core stabilization. Advance hip and LE strengthening exercises with continued fin use Land: continue to work on core and hip strengthening
--- NOTE | 2021-03-30 14:29 | PT.OTN ---
Current Diagnoses Other chronic pain (03/30/21) Low back pain (03/30/21) Muscle weakness (generalized) (03/30/21) Difficulty in walking, not elsewhere classified (03/30/21) Unsteadiness on feet (03/30/21) Abnormal posture (03/30/21) Physical Therapy Treatment Note PT-OP-A Visit Information Start: 11/27/20 13:42 Freq: Status: Active Protocol: Document 03/30/21 14:23 [facility] (Rec: 03/30/21 14:29 [facility] [id number]) Out-Patient Physical Therapy Visit Information Visit Information Visit Type Treatment Note Visit Note 07/21 Visit Start Time 09:45 Visit Stop Time 10:30 Total Visit Minutes 45 Visit Number 31 Number of WAREHOUSE ASSOCIATE DRIVER Visits 0 PT-OP-B Current Condition Start: 11/27/20 13:42 Freq: Status: Active Protocol: Document 12/01/20 14:05 [facility] (Rec: 12/01/20 15:18 [facility] [id number]) Current Condition History of Current Condition Onset Date worse over the past year Current Complaints balance, gait History of Current Condition Pt reports increasing difficulty with walking over uneven surfaces and has trouble w/stairs and curbs. In random intervals, R and LLE feels like they may give out ( mostly knee giving out sensation). Pt reports B foot pain that is gout like. pt reprots knees hurt at night with occasionally that discomfort being enough to wake him. Pt reports over the past year, inc difficulty with getting out of stair and feeling imbalance when first getting up. Pt reports LB is stiff and he is discouraged because he is trying to do his regular old PT exercises and trying tto walk but it hurts like hell to his legs, hips, knees, feet. He does stretches including bending over. He feels like his walk is a jarring walk and cannot walk on uneven ground. He has to hold a railing when stepping down and feels really uncertain. Pt reports he has been in pain since he was 22 years old. he does not want palliative care. Pt feels like he is occ feeling anticipatory pain and thinks he may have to talk to a psychiatrist. Pt got an electric bike with a low step through and he is scared to get on it. Pt reports he also can't get off the ground w/o pulling up on something. Pt can't get his leg up underneath himself and cannot lift his leg. Prior Treatments and Tests PT in past Treatment Goals Patient/Caregiver Goals Be able to walk distances & be able to walk a trail, be more confident about balance, have an analysis of gaito understand dysfunction, be able to go up/down stairs w/o feeling unstable Personal Factors Other Personal Factors That May Effect B TSA, R TKA, mult hand Therapy/Recovery surgeries, drainage of R hallux & removal of gout crystals, T11-12, L2-3, 3-4, 4 -5 lami and L4-5 fusion PT-OP-C Subjective Start: 11/27/20 13:42 Freq: Status: Active Protocol: Document 03/30/21 14:23 [facility] (Rec: 03/30/21 14:29 [facility] [id number]) OP-PT Subjective Patient Comments Patient Comments Feels like PT has been helpful . Hasn't come to the pool on his own as has been encouraged . Reports intellectually he knows he should but describes his mood as melancholy and reports difficulty motivating himself. PT-OP-D Balance Start: 11/27/20 13:42 Freq: Status: Active Protocol: Document 12/01/20 14:05 [facility] (Rec: 12/01/20 15:18 [facility] [id number]) Balance Tests Single Limb Standing Single Limb- Right 2sec w./lat lean & UEs uses Single Limb- Left 5 sec w./lat lean & UEs uses PT-OP-E Functional Tests Start: 11/27/20 13:42 Freq: Status: Active Protocol: Document 03/02/21 09:27 [facility] (Rec: 03/02/21 11:57 [facility] [id number]) Functional Tests 6 Minute Walk Test Distance 1138ft Comments 4/10 pain 30 Second Sit to Stand Test Score 10 Five Times Sit to Stand Test Score 12 sec Functional Gait Assessment Score 21 PT-OP-G Mobility & Gait Start: 11/27/20 13:42 Freq: Status: Active Protocol: Document 12/01/20 14:05 [facility] (Rec: 12/01/20 15:18 [facility] [id number]) OP Mobility Evaluation Bed Mobility Rolling able to roll Supine to and from Sit required assist to sit up Transfers Sit to Stand slow and very slow to start moving OP Gait Assessment Comments Gait Comments lat lean w/WB R>L PT-OP-J Posture/Palpation/Skin Start: 11/27/20 13:42 Freq: Status: Active Protocol: Document 12/01/20 14:05 [facility] (Rec: 12/01/20 15:18 [facility] [id number]) Posture Evaluation Comments Posture Comments fwd flex posture PT-OP-M Strength Start: 11/27/20 13:42 Freq: Status: Active Protocol: Document 03/02/21 09:27 [facility] (Rec: 03/02/21 11:57 [facility] [id number]) Hip Strength Hip Manual Muscle Testing Right Flexion (L2) 3+ Fair+ Extension (S1) 3+ Fair+ Abduction 3+ Fair+ External Rotation 4+ Good+ Internal Rotation 5 Normal Comments pain in post knee w/hip ext; Left Flexion (L2) 4 Good Extension (S1) 3 Fair Abduction 3+ Fair+ External Rotation 4+ Good+ Internal Rotation 5 Normal Knee Strength Knee Manual Muscle Testing Right Flexion (S2) 5 Normal Extension (L3) 5 Normal Left Flexion (S2) 5 Normal Extension (L3) 5 Normal Ankle/Foot Strength Ankle and Foot Manual Muscle Testing Right Dorsiflexion (L4) 5 Normal Plantarflexion (S1) 5 Normal Left Dorsiflexion (L4) 5 Normal Plantarflexion (S1) 5 Normal Comments PF tested seated PT-OP-Q Treatments Start: 11/27/20 13:42 Freq: Status: Active Protocol: Document 03/24/21 09:06 [facility] (Rec: 03/24/21 10:05 [facility] [id number]) Gym Equipment Shuttle Balance red clips Details fwd & side Comments fwd: WBOS & NBOS w/head tunrs, staggered stance side: WBOS & NBOS Therapeutic Exercises Standing Exercises step down Standing Exercise Name 3 in Side bilateral Equipment Used shuttle red step Reps/Minutes 15 ea hip abd Side bilateral Reps/Minutes 20 Comments cues for upright position hip ext Side bilateral Reps/Minutes 20 Comments cues for upright position step up Standing Exercise Name 5 in plus blue foam Side bilateral Equipment Used rail prn Reps/Minutes 10 sidestep Standing Exercise Name step up Side bilateral Equipment Used 5 in Reps/Minutes 10 Manual Therapy Treatment Soft Tissue Mobilization thigh Body Location quad lat R Mobilization Type Rolling,Strumming Intensity/Depth Moderate Body Position Hooklying IT band Body Location R Mobilization Type Rolling,Strumming Body Position Hooklying Neuro Re-Education Treatment Balance Activities foam pad Details staggered stance EO/EC trials B PT-OP-S Aquatic Treatment Start: 01/14/21 14:10 Freq: Status: Active Protocol: Document 03/30/21 14:23 [facility] (Rec: 03/30/21 14:29 [facility] [id number]) Aquatics Treatment Pool Entry/Exit Pool Entry/Exit Method Stairs Assistance Independent Water Walking step up/down Water Level Chest Level Walking Equipment 8 box Comments all directions fwd, bck, , may, may kick Water Level Chest Level Walking Equipment Resistance Fins Lower Extremity Exercises LE stretches Details ITB, groin, quad Body Position Standing Water Level Chest Level Equipment noodle Comments standing at wall Alma Activities Alma Activities Bicycle,Bicycle Backwards, Cross Country,Running,Hip Abduction/Adduction Other Activities pendulum T hand with LE mvmt intervals 6x30:30 tether Equipment belt, M BBs Duration 20 PT-OP-T Assessment and Plan Start: 11/27/20 13:42 Freq: Status: Active Protocol: Document 03/30/21 14:23 [facility] (Rec: 03/30/21 14:29 [facility] [id number]) Physical Therapy Assessment Goals activities Short Term Goal (STG) Pt will be able to go up and down a curb and stairs w/o LOB w/o UE support. 01/07-pt reports improved STG Duration achieved but pt feels off balance Chief Ophthalmic Technician Goal (LTG) Pt will be able to go for 1 mile walks with no more than 4 /10 pain. 03/02- still gradually progressing stopping d/t LBP after about 1/4 mile w/5/10 pain LTG Duration 05/03/21 balance Short Term Goal (STG) Pt will be able to do SLS 10 sec B 01/07-L 15 sec, R 2 sec 02/09->30 sec L, R 13 sec STG Duration achieved Chief Ophthalmic Technician Goal (LTG) Pt will be able to score at least 25/30 on FGA to show improved balance and low risk for falls. 03/02-improved LTG Duration 05/03/21 strength Short Term Goal (STG) Pt will be indep w/ HEP STG Duration achieved progressing as able Longterm Goal (LTG) Pt will score at least 1 full MMT grade higher on all LE MMT in order to improve pt joint stability and dec pain and improve strength to improve pt 's ease w/activities. 01/07-improved 03/02-improving LTG Duration 05/03/21 sit to stand Short Term Goal (STG) Pt will improve 5x sit to stand test to no greater than 15 sec (norm 12 sec) to show improved functional ability. 01/07-1 sec improvement STG Duration achieved Longterm Goal (LTG) Pt will improve 30 sec sit to stand score to 12x to show improved balance and LE strength 03/02-improved to 10 LTG Duration 05/03/21 6 min walk Short Term Goal (STG) Pt will be able to complete 6 min walk test without requring a rest break STG Duration achieved Chief Ophthalmic Technician Goal (LTG) Pt waill be able to walk 1171ft with no more than 2/10 pain after to show more age related norms for functional abiltiy in gait. 01/07-improved to 1070ft 02/09-1035ft 4/10 pain 03/02-1138ft 4/10 LTG Duration 05/03/21 Assessment Summary Assessment Noted improved balance with step-up drills. Patient having difficulty with motivation and melancholy mood. Physical Therapy Plan Frequency and Duration Frequency of Treatment 2x/Week Duration of Treatment 2 months Plan of Care Start Date 03/02/21 Plan of Care End Date 05/03/21 Therapeutic Interventions Therapeutic Interventions Aquatic Therapy,Balance Training,Gait Training,Home Exercise Program,Joint Mobilizations,Manual Therapy, Neuromuscular Re-education, Patient/Caregiver Education, Self-Care/Home Management,Soft Tissue Mobilization,Taping, Therapeutic Activities, Therapeutic Exercises Modalities Cold Pack/Ice Massage,Electric Stimulation,Hot Packs Next Visit Focus/Plan Next Note Type Treatment Note Next Visit Plan Aquatic: progress ther ex in shallow and deep for strengthening core stabilization. Advance hip and LE strengthening exercises with continued fin use Land: continue to work on core and hip strengthening
--- NOTE | 2021-04-01 10:02 | PT.OTN ---
Current Diagnoses Other chronic pain (04/01/21) Low back pain (04/01/21) Muscle weakness (generalized) (04/01/21) Difficulty in walking, not elsewhere classified (04/01/21) Unsteadiness on feet (04/01/21) Abnormal posture (04/01/21) Physical Therapy Treatment Note PT-OP-A Visit Information Start: 11/27/20 13:42 Freq: Status: Active Protocol: Document 04/01/21 09:03 [facility] (Rec: 04/01/21 10:02 [facility] [id number]) Out-Patient Physical Therapy Visit Information Visit Information Visit Type Treatment Note Visit Note 08/21 Visit Start Time 09:03 Visit Stop Time 09:45 Total Visit Minutes 42 Visit Number 32 Number of TRAY FILLER Visits 0 PT-OP-B Current Condition Start: 11/27/20 13:42 Freq: Status: Active Protocol: Document 12/01/20 14:05 [facility] (Rec: 12/01/20 15:18 [facility] [id number]) Current Condition History of Current Condition Onset Date worse over the past year Current Complaints balance, gait History of Current Condition Pt reports increasing difficulty with walking over uneven surfaces and has trouble w/stairs and curbs. In random intervals, R and LLE feels like they may give out ( mostly knee giving out sensation). Pt reports B foot pain that is gout like. pt reprots knees hurt at night with occasionally that discomfort being enough to wake him. Pt reports over the past year, inc difficulty with getting out of stair and feeling imbalance when first getting up. Pt reports LB is stiff and he is discouraged because he is trying to do his regular old PT exercises and trying tto walk but it hurts like hell to his legs, hips, knees, feet. He does stretches including bending over. He feels like his walk is a jarring walk and cannot walk on uneven ground. He has to hold a railing when stepping down and feels really uncertain. Pt reports he has been in pain since he was 22 years old. he does not want palliative care. Pt feels like he is occ feeling anticipatory pain and thinks he may have to talk to a psychiatrist. Pt got an electric bike with a low step through and he is scared to get on it. Pt reports he also can't get off the ground w/o pulling up on something. Pt can't get his leg up underneath himself and cannot lift his leg. Prior Treatments and Tests PT in past Treatment Goals Patient/Caregiver Goals Be able to walk distances & be able to walk a trail, be more confident about balance, have an analysis of gaito understand dysfunction, be able to go up/down stairs w/o feeling unstable Personal Factors Other Personal Factors That May Effect B TSA, R TKA, mult hand Therapy/Recovery surgeries, drainage of R hallux & removal of gout crystals, T11-12, L2-3, 3-4, 4 -5 lami and L4-5 fusion PT-OP-C Subjective Start: 11/27/20 13:42 Freq: Status: Active Protocol: Document 04/01/21 09:03 [facility] (Rec: 04/01/21 10:02 [facility] [id number]) OP-PT Subjective Patient Comments Patient Comments Pt reports he really feels like pool helps. He is working on figuring out if insurance helps pay for membership. notes he feels like his walking is getting better. Reports he did one walk about 1/3 mile and another about 1/2 mile PT-OP-D Balance Start: 11/27/20 13:42 Freq: Status: Active Protocol: Document 12/01/20 14:05 [facility] (Rec: 12/01/20 15:18 [facility] [id number]) Balance Tests Single Limb Standing Single Limb- Right 2sec w./lat lean & UEs uses Single Limb- Left 5 sec w./lat lean & UEs uses PT-OP-E Functional Tests Start: 11/27/20 13:42 Freq: Status: Active Protocol: Document 03/02/21 09:27 [facility] (Rec: 03/02/21 11:57 [facility] [id number]) Functional Tests 6 Minute Walk Test Distance 1138ft Comments 4/10 pain 30 Second Sit to Stand Test Score 10 Five Times Sit to Stand Test Score 12 sec Functional Gait Assessment Score 21 PT-OP-G Mobility & Gait Start: 11/27/20 13:42 Freq: Status: Active Protocol: Document 12/01/20 14:05 [facility] (Rec: 12/01/20 15:18 [facility] [id number]) OP Mobility Evaluation Bed Mobility Rolling able to roll Supine to and from Sit required assist to sit up Transfers Sit to Stand slow and very slow to start moving OP Gait Assessment Comments Gait Comments lat lean w/WB R>L PT-OP-J Posture/Palpation/Skin Start: 11/27/20 13:42 Freq: Status: Active Protocol: Document 12/01/20 14:05 [facility] (Rec: 12/01/20 15:18 [facility] [id number]) Posture Evaluation Comments Posture Comments fwd flex posture PT-OP-M Strength Start: 11/27/20 13:42 Freq: Status: Active Protocol: Document 03/02/21 09:27 [facility] (Rec: 03/02/21 11:57 [facility] [id number]) Hip Strength Hip Manual Muscle Testing Right Flexion (L2) 3+ Fair+ Extension (S1) 3+ Fair+ Abduction 3+ Fair+ External Rotation 4+ Good+ Internal Rotation 5 Normal Comments pain in post knee w/hip ext; Left Flexion (L2) 4 Good Extension (S1) 3 Fair Abduction 3+ Fair+ External Rotation 4+ Good+ Internal Rotation 5 Normal Knee Strength Knee Manual Muscle Testing Right Flexion (S2) 5 Normal Extension (L3) 5 Normal Left Flexion (S2) 5 Normal Extension (L3) 5 Normal Ankle/Foot Strength Ankle and Foot Manual Muscle Testing Right Dorsiflexion (L4) 5 Normal Plantarflexion (S1) 5 Normal Left Dorsiflexion (L4) 5 Normal Plantarflexion (S1) 5 Normal Comments PF tested seated PT-OP-Q Treatments Start: 11/27/20 13:42 Freq: Status: Active Protocol: Document 04/01/21 09:03 [facility] (Rec: 04/01/21 10:02 [facility] [id number]) Gym Equipment Sport Cord wt shifts Cord/Resistance green Reps/Duration 12 B Comments in mirror walk Cord/Resistance green Reps/Duration 12 Comments focus on push off and no lat lean Therapeutic Exercises Standing Exercises hip hike Standing Exercise Name 1. attempted on step x3 min 2. w/ball at hip & hand on wall x5 B Side bilateral hip abd Side bilateral Equipment Used lvl 1 Reps/Minutes 15 Comments cues for upright position hip ext Side bilateral Equipment Used lvl 1 Reps/Minutes 12 Comments cues for upright position Gait Training Gait Activity wt shifts Description fwd in front of mirror w/hand hold focus on no lat lean Comments and focus on push off w/ progression to step through walking Description in mirror focus on push off and no L lat hip shear Neuro Re-Education Treatment Balance Activities SLS Details toe taps to 8 in steps Reps/Duration 8 B PT-OP-S Aquatic Treatment Start: 01/14/21 14:10 Freq: Status: Active Protocol: Document 03/30/21 14:23 [facility] (Rec: 03/30/21 14:29 [facility] [id number]) Aquatics Treatment Pool Entry/Exit Pool Entry/Exit Method Stairs Assistance Independent Water Walking step up/down Water Level Chest Level Walking Equipment 8 box Comments all directions fwd, bck, side, may, may kick Water Level Chest Level Walking Equipment Resistance Fins Lower Extremity Exercises LE stretches Details ITB, groin, quad Body Position Standing Water Level Chest Level Equipment noodle Comments standing at wall Phyllis Activities Phyllis Activities Bicycle,Bicycle Backwards, Cross Country,Running,Hip Abduction/Adduction Other Activities pendulum T hand with LE mvmt intervals 6x30:30 tether Equipment belt, M BBs Duration 20 PT-OP-T Assessment and Plan Start: 11/27/20 13:42 Freq: Status: Active Protocol: Document 04/01/21 09:03 [facility] (Rec: 04/01/21 10:02 [facility] [id number]) Physical Therapy Assessment Goals activities Short Term Goal (STG) Pt will be able to go up and down a curb and stairs w/o LOB w/o UE support. 01/07-pt reports improved STG Duration achieved but pt feels off balance Long-Term Goal (LTG) Pt will be able to go for 1 mile walks with no more than 4 /10 pain. 03/02- still gradually progressing stopping d/t LBP after about 1/4 mile w/5/10 pain LTG Duration 05/03/21 balance Short Term Goal (STG) Pt will be able to do SLS 10 sec B 01/07-L 15 sec, R 2 sec 02/09->30 sec L, R 13 sec STG Duration achieved Php Wordpress Developer Goal (LTG) Pt will be able to score at least 25/30 on FGA to show improved balance and low risk for falls. 03/02-improved LTG Duration 05/03/21 strength Short Term Goal (STG) Pt will be indep w/ HEP STG Duration achieved progressing as able Php Wordpress Developer Goal (LTG) Pt will score at least 1 full MMT grade higher on all LE MMT in order to improve pt joint stability and dec pain and improve strength to improve pt 's ease w/activities. 01/07-improved 03/02-improving LTG Duration 05/03/21 sit to stand Short Term Goal (STG) Pt will improve 5x sit to stand test to no greater than 15 sec (norm 12 sec) to show improved functional ability. 01/07-1 sec improvement STG Duration achieved Long-Term Goal (LTG) Pt will improve 30 sec sit to stand score to 12x to show improved balance and LE strength 03/02-improved to 10 LTG Duration 05/03/21 6 min walk Short Term Goal (STG) Pt will be able to complete 6 min walk test without requring a rest break STG Duration achieved Long-Term Goal (LTG) Pt waill be able to walk 1171ft with no more than 2/10 pain after to show more age related norms for functional abiltiy in gait. 01/07-improved to 1070ft 02/09-1035ft 06/21 pain 03/02-1138ft 06/21 LTG Duration 05/03/21 Assessment Summary Assessment Pt still has L lat hip shear when WB on LLE and has dec stance time on RLE. He was unable to do a hip hike on step B and only was able to do hip hike when WB on RLE w/ small range standing by wall. Physical Therapy Plan Frequency and Duration Frequency of Treatment 2x/Week Duration of Treatment 2 months Plan of Care Start Date 03/02/21 Plan of Care End Date 05/03/21 Next Visit Focus/Plan Next Note Type Treatment Note Next Visit Plan Aquatic: work on ability to hip hike especially when WB LLE, progress ther ex in shallow and deep for strengthening core stabilization. Advance hip and LE strengthening exercises with continued fin use Land: continue to work on core and hip strengthening especailly L abd for wt acceptance and push off of RLE
--- NOTE | 2021-04-06 14:54 | PT.OTN ---
Current Diagnoses Other chronic pain (04/06/21) Low back pain (04/06/21) Muscle weakness (generalized) (04/06/21) Difficulty in walking, not elsewhere classified (04/06/21) Unsteadiness on feet (04/06/21) Abnormal posture (04/06/21) Physical Therapy Treatment Note PT-OP-A Visit Information Start: 11/27/20 13:42 Freq: Status: Active Protocol: Document 04/06/21 14:43 LJ (Rec: 04/06/21 14:54 LJ [id number]) Out-Patient Physical Therapy Visit Information Visit Information Visit Type Aquatic Treatment Note Visit Start Time 11:45 Visit Stop Time 12:30 Total Visit Minutes 45 Visit Number 33 Number of MEAT CUTTING BLOCK REPAIRER Visits 1 PT-OP-B Current Condition Start: 11/27/20 13:42 Freq: Status: Active Protocol: Document 12/01/20 14:05 [facility] (Rec: 12/01/20 15:18 [facility] [id number]) Current Condition History of Current Condition Onset Date worse over the past year Current Complaints balance, gait History of Current Condition Pt reports increasing difficulty with walking over uneven surfaces and has trouble w/stairs and curbs. In random intervals, R and LLE feels like they may give out ( mostly knee giving out sensation). Pt reports B foot pain that is gout like. pt reprots knees hurt at night with occasionally that discomfort being enough to wake him. Pt reports over the past year, inc difficulty with getting out of stair and feeling imbalance when first getting up. Pt reports LB is stiff and he is discouraged because he is trying to do his regular old PT exercises and trying tto walk but it hurts like hell to his legs, hips, knees, feet. He does stretches including bending over. He feels like his walk is a jarring walk and cannot walk on uneven ground. He has to hold a railing when stepping down and feels really uncertain. Pt reports he has been in pain since he was 22 years old. he does not want palliative care. Pt feels like he is occ feeling anticipatory pain and thinks he may have to talk to a psychiatrist. Pt got an electric bike with a low step through and he is scared to get on it. Pt reports he also can't get off the ground w/o pulling up on something. Pt can't get his leg up underneath himself and cannot lift his leg. Prior Treatments and Tests PT in past Treatment Goals Patient/Caregiver Goals Be able to walk distances & be able to walk a trail, be more confident about balance, have an analysis of gaito understand dysfunction, be able to go up/down stairs w/o feeling unstable Personal Factors Other Personal Factors That May Effect B TSA, R TKA, mult hand Therapy/Recovery surgeries, drainage of R hallux & removal of gout crystals, T11-12, L2-3, 3-4, 4 -5 lami and L4-5 fusion PT-OP-C Subjective Start: 11/27/20 13:42 Freq: Status: Active Protocol: Document 04/06/21 14:43 LJ (Rec: 04/06/21 14:54 LJ [id number]) OP-PT Subjective Patient Comments Patient Comments Pt states he feels his walking is improving and that the water exercises are helping. PT-OP-D Balance Start: 11/27/20 13:42 Freq: Status: Active Protocol: Document 12/01/20 14:05 [facility] (Rec: 12/01/20 15:18 [facility] [id number]) Balance Tests Single Limb Standing Single Limb- Right 2sec w./lat lean & UEs uses Single Limb- Left 5 sec w./lat lean & UEs uses PT-OP-E Functional Tests Start: 11/27/20 13:42 Freq: Status: Active Protocol: Document 03/02/21 09:27 [facility] (Rec: 03/02/21 11:57 [facility] [id number]) Functional Tests 6 Minute Walk Test Distance 1138ft Comments 4/10 pain 30 Second Sit to Stand Test Score 10 Five Times Sit to Stand Test Score 12 sec Functional Gait Assessment Score 21 PT-OP-G Mobility & Gait Start: 11/27/20 13:42 Freq: Status: Active Protocol: Document 12/01/20 14:05 [facility] (Rec: 12/01/20 15:18 [facility] [id number]) OP Mobility Evaluation Bed Mobility Rolling able to roll Supine to and from Sit required assist to sit up Transfers Sit to Stand slow and very slow to start moving OP Gait Assessment Comments Gait Comments lat lean w/WB R>L PT-OP-J Posture/Palpation/Skin Start: 09/16/21 13:42 Freq: Status: Active Protocol: Document 12/01/20 14:05 [facility] (Rec: 12/01/20 15:18 [facility] [id number]) Posture Evaluation Comments Posture Comments fwd flex posture PT-OP-M Strength Start: 11/27/20 13:42 Freq: Status: Active Protocol: Document 03/02/21 09:27 [facility] (Rec: 03/02/21 11:57 [facility] [id number]) Hip Strength Hip Manual Muscle Testing Right Flexion (L2) 3+ Fair+ Extension (S1) 3+ Fair+ Abduction 3+ Fair+ External Rotation 4+ Good+ Internal Rotation 5 Normal Comments pain in post knee w/hip ext; Left Flexion (L2) 4 Good Extension (S1) 3 Fair Abduction 3+ Fair+ External Rotation 4+ Good+ Internal Rotation 5 Normal Knee Strength Knee Manual Muscle Testing Right Flexion (S2) 5 Normal Extension (L3) 5 Normal Left Flexion (S2) 5 Normal Extension (L3) 5 Normal Ankle/Foot Strength Ankle and Foot Manual Muscle Testing Right Dorsiflexion (L4) 5 Normal Plantarflexion (S1) 5 Normal Left Dorsiflexion (L4) 5 Normal Plantarflexion (S1) 5 Normal Comments PF tested seated PT-OP-Q Treatments Start: 11/27/20 13:42 Freq: Status: Active Protocol: Document 04/01/21 09:03 [facility] (Rec: 04/01/21 10:02 [facility] [id number]) Gym Equipment Sport Cord wt shifts Cord/Resistance green Reps/Duration 12 B Comments in mirror walk Cord/Resistance green Reps/Duration 12 Comments focus on push off and no lat lean Therapeutic Exercises Standing Exercises hip hike Standing Exercise Name 1. attempted on step x3 min 2. w/ball at hip & hand on wall x5 B Side bilateral hip abd Side bilateral Equipment Used lvl 1 Reps/Minutes 15 Comments cues for upright position hip ext Side bilateral Equipment Used lvl 1 Reps/Minutes 12 Comments cues for upright position Gait Training Gait Activity wt shifts Description fwd in front of mirror w/hand hold focus on no lat lean Comments and focus on push off w/ progression to step through walking Description in mirror focus on push off and no L lat hip shear Neuro Re-Education Treatment Balance Activities SLS Details toe taps to 8 in steps Reps/Duration 8 B PT-OP-S Aquatic Treatment Start: 01/14/21 14:10 Freq: Status: Active Protocol: Document 04/06/21 14:43 STAC[facility] (Rec: 04/06/21 14:54 [facility] [id number]) Aquatics Treatment Pool Entry/Exit Pool Entry/Exit Method Stairs Assistance Independent Water Walking Tandem Gait Water Level Chest Level Comments fwd/bkw Lunge Walk Water Level Waist Level circumduction f/b Water Level Chest Level step up/down Water Level Chest Level Walking Equipment 8 box Comments all directions fwd, bck, , may, may kick Water Level Chest Level Lower Extremity Exercises 4 way hip Details hh on wall Body Position Standing Water Level Waist Level Equipment Ankle Weight- 5.0# Reps/Duration 2 x 10 B LE stretches Details ITB, groin, quad Body Position Standing Water Level Chest Level Equipment noodle Comments standing at wall hip flex/ext, ab/ad, circles, heel raise, toe raise Body Position Standing Water Level Chest Level Equipment Resistance Fins Reps/Duration 10x B Comments at wall, min UE support Lower Extremity Stretches free the hip Body Position Standing Water Level Waist Level HS, Hip flexors Details at wall Body Position Standing Reps/Duration 30 x2 B Upper Extremity Exercises Hor ab/ad with core stab Body Position Standing Water Level Chest Level Reps/Duration 10x Spinal Exercises rotations at wall Body Position Sitting Water Level Neck Level Reps/Duration 15 Comments core stabilization noodle pull down at wall Body Position Standing Equipment lg BBs Reps/Duration 15 Balance step up/down on boxes Water Level Chest Level Reps/Duration 5 B each exercise Comments up/down; up-lift opp knee-down Leonardo Activities Leonardo Activities Bicycle,Bicycle Backwards, Cross Country,Hip Abduction/ Adduction Equipment belt Duration 10 PT-OP-T Assessment and Plan Start: 11/27/20 13:42 Freq: Status: Active Protocol: Document 04/06/21 14:43 STAC[facility] (Rec: 04/06/21 14:54 [facility] [id number]) Physical Therapy Assessment Rehab Potential Rehabilitation Potential Good Evaluation Complexity Number of Personal Factors/Comorbidities 3 or More Number of Body Systems Impaired 4 or More Clinical Presentation at Evaluation Evolving Impairments Impairments Activity Tolerance,Balance, Functional Activities, Functional Mobility,Gait,Pain, Posture,ROM,Soft Tissue Mobility,Strength,Transfers Goals activities Short Term Goal (STG) Pt will be able to go up and down a curb and stairs w/o LOB w/o UE support. 01/07-pt reports improved STG Duration achieved but pt feels off balance Jail Goal (LTG) Pt will be able to go for 1 mile walks with no more than 4 /10 pain. 03/02- still gradually progressing stopping d/t LBP after about 1/4 mile w/5/10 pain LTG Duration 05/03/21 balance Short Term Goal (STG) Pt will be able to do SLS 10 sec B 01/07-L 15 sec, R 2 sec 02/09->30 sec L, R 13 sec STG Duration achieved Organizational Consultant Goal (LTG) Pt will be able to score at least 25/30 on FGA to show improved balance and low risk for falls. 03/02-improved LTG Duration 05/03/21 strength Short Term Goal (STG) Pt will be indep w/ HEP STG Duration achieved progressing as able Jail Goal (LTG) Pt will score at least 1 full MMT grade higher on all LE MMT in order to improve pt joint stability and dec pain and improve strength to improve pt 's ease w/activities. 01/07-improved 03/02-improving LTG Duration 05/03/21 sit to stand Short Term Goal (STG) Pt will improve 5x sit to stand test to no greater than 15 sec (norm 12 sec) to show improved functional ability. 01/07-1 sec improvement STG Duration achieved Organizational Consultant Goal (LTG) Pt will improve 30 sec sit to stand score to 12x to show improved balance and LE strength 03/02-improved to 10 LTG Duration 05/03/21 6 min walk Short Term Goal (STG) Pt will be able to complete 6 min walk test without requring a rest break STG Duration achieved Jail Goal (LTG) Pt waill be able to walk 1171ft with no more than 2/10 pain after to show more age related norms for functional abiltiy in gait. 01/07-improved to 1070ft 02/09-1035ft 4/10 pain 03/02-1138ft 410 LTG Duration 05/03/21 Assessment Summary Assessment Pt very stiff with hip hiking exercise L>R. Able to perform exercise but began feeling fatigued after 8 reps on left. Pt improving with balance as demonstrated with tandem gait at end of session. Physical Therapy Plan Frequency and Duration Frequency of Treatment 2x/Week Duration of Treatment 2 months Plan of Care Start Date 03/02/21 Plan of Care End Date 05/03/21 Therapeutic Interventions Therapeutic Interventions Aquatic Therapy,Balance Training,Gait Training,Home Exercise Program,Joint Mobilizations,Manual Therapy, Neuromuscular Re-education, Patient/Caregiver Education, Self-Care/Home Management,Soft Tissue Mobilization,Taping, Therapeutic Activities, Therapeutic Exercises Modalities Cold Pack/Ice Massage,Electric Stimulation,Hot Packs Next Visit Focus/Plan Next Note Type Treatment Note Next Visit Plan Aquatic: work on ability to hip hike especially when WB LLE, progress ther ex in shallow and deep for strengthening core stabilization. Advance hip and LE strengthening exercises with continued fin use Land: continue to work on core and hip strengthening especailly L abd for wt acceptance and push off of RLE
--- NOTE | 2021-04-08 09:51 | PT.OTN ---
Current Diagnoses Other chronic pain (04/08/21) Low back pain (04/08/21) Muscle weakness (generalized) (04/08/21) Difficulty in walking, not elsewhere classified (04/08/21) Unsteadiness on feet (04/08/21) Abnormal posture (04/08/21) Physical Therapy Treatment Note PT-OP-A Visit Information Start: 11/27/20 13:42 Freq: Status: Active Protocol: Document 04/08/21 09:34 [facility] (Rec: 04/08/21 09:51 [facility] [id number]) Out-Patient Physical Therapy Visit Information Visit Information Visit Type Progress Note Visit Note 03/23 Visit Start Time 09:03 Visit Stop Time 09:45 Total Visit Minutes 42 Visit Number 34 Number of DRY BOSS Visits 0 PT-OP-B Current Condition Start: 11/27/20 13:42 Freq: Status: Active Protocol: Document 12/01/20 14:05 [facility] (Rec: 12/01/20 15:18 [facility] [id number]) Current Condition History of Current Condition Onset Date worse over the past year Current Complaints balance, gait History of Current Condition Pt reports increasing difficulty with walking over uneven surfaces and has trouble w/stairs and curbs. In random intervals, R and LLE feels like they may give out ( mostly knee giving out sensation). Pt reports B foot pain that is gout like. pt reprots knees hurt at night with occasionally that discomfort being enough to wake him. Pt reports over the past year, inc difficulty with getting out of stair and feeling imbalance when first getting up. Pt reports LB is stiff and he is discouraged because he is trying to do his regular old PT exercises and trying tto walk but it hurts like hell to his legs, hips, knees, feet. He does stretches including bending over. He feels like his walk is a jarring walk and cannot walk on uneven ground. He has to hold a railing when stepping down and feels really uncertain. Pt reports he has been in pain since he was 22 years old. he does not want palliative care. Pt feels like he is occ feeling anticipatory pain and thinks he may have to talk to a psychiatrist. Pt got an electric bike with a low step through and he is scared to get on it. Pt reports he also can't get off the ground w/o pulling up on something. Pt can't get his leg up underneath himself and cannot lift his leg. Prior Treatments and Tests PT in past Treatment Goals Patient/Caregiver Goals Be able to walk distances & be able to walk a trail, be more confident about balance, have an analysis of gaito understand dysfunction, be able to go up/down stairs w/o feeling unstable Personal Factors Other Personal Factors That May Effect B TSA, R TKA, mult hand Therapy/Recovery surgeries, drainage of R hallux & removal of gout crystals, T11-12, L2-3, 3-4, 4 -5 lami and L4-5 fusion PT-OP-C Subjective Start: 11/27/20 13:42 Freq: Status: Active Protocol: Document 04/08/21 09:34 [facility] (Rec: 04/08/21 09:51 [facility] [id number]) OP-PT Subjective Patient Comments Patient Comments Pt reprots he has not walked but has been practicing exercises. PT-OP-D Balance Start: 11/27/20 13:42 Freq: Status: Active Protocol: Document 12/01/20 14:05 [facility] (Rec: 12/01/20 15:18 [facility] [id number]) Balance Tests Single Limb Standing Single Limb- Right 2sec w./lat lean & UEs uses Single Limb- Left 5 sec w./lat lean & UEs uses PT-OP-E Functional Tests Start: 11/27/20 13:42 Freq: Status: Active Protocol: Document 04/08/21 09:34 [facility] (Rec: 04/08/21 09:51 [facility] [id number]) Functional Tests 30 Second Sit to Stand Test Score 13 Functional Gait Assessment Score 25 PT-OP-G Mobility & Gait Start: 11/27/20 13:42 Freq: Status: Active Protocol: Document 12/01/20 14:05 [facility] (Rec: 12/01/20 15:18 [facility] [id number]) OP Mobility Evaluation Bed Mobility Rolling able to roll Supine to and from Sit required assist to sit up Transfers Sit to Stand slow and very slow to start moving OP Gait Assessment Comments Gait Comments lat lean w/WB R>L PT-OP-J Posture/Palpation/Skin Start: 11/27/20 13:42 Freq: Status: Active Protocol: Document 12/01/20 14:05 [facility] (Rec: 12/01/20 15:18 [facility] [id number]) Posture Evaluation Comments Posture Comments fwd flex posture PT-OP-M Strength Start: 11/27/20 13:42 Freq: Status: Active Protocol: Document 03/02/21 09:27 [facility] (Rec: 03/02/21 11:57 [facility] [id number]) Hip Strength Hip Manual Muscle Testing Right Flexion (L2) 3+ Fair+ Extension (S1) 3+ Fair+ Abduction 3+ Fair+ External Rotation 4+ Good+ Internal Rotation 5 Normal Comments pain in post knee w/hip ext; Left Flexion (L2) 4 Good Extension (S1) 3 Fair Abduction 3+ Fair+ External Rotation 4+ Good+ Internal Rotation 5 Normal Knee Strength Knee Manual Muscle Testing Right Flexion (S2) 5 Normal Extension (L3) 5 Normal Left Flexion (S2) 5 Normal Extension (L3) 5 Normal Ankle/Foot Strength Ankle and Foot Manual Muscle Testing Right Dorsiflexion (L4) 5 Normal Plantarflexion (S1) 5 Normal Left Dorsiflexion (L4) 5 Normal Plantarflexion (S1) 5 Normal Comments PF tested seated PT-OP-Q Treatments Start: 11/27/20 13:42 Freq: Status: Active Protocol: Document 04/08/21 09:34 [facility] (Rec: 04/08/21 09:51 [facility] [id number]) Gym Equipment Sport Cord walk Cord/Resistance green Reps/Duration 12 Comments focus on push off and no lat lean step ups Exercise Details green fwd & sdie Cord/Resistance green Reps/Duration 10 ea Comments 4 in Therapeutic Exercises Standing Exercises hip abd Side bilateral Equipment Used lvl 1 Reps/Minutes 15 Comments cues for upright position hip ext Side bilateral Equipment Used lvl 1 Reps/Minutes 12 Comments cues for upright position squat Standing Exercise Name sit to stand 30 sec Gait Training Gait Activity wt shifts Description fwd in front of mirror w/hand hold focus on no lat lean Comments and focus on push off w/ progression to step through Neuro Re-Education Treatment Other Activities FGA Details PT-OP-S Aquatic Treatment Start: 01/14/21 14:10 Freq: Status: Active Protocol: Document 04/06/21 14:43 [facility] (Rec: 04/06/21 14:54 LJ [id number]) Aquatics Treatment Pool Entry/Exit Pool Entry/Exit Method Stairs Assistance Independent Water Walking Tandem Gait Water Level Chest Level Comments fwd/bkw Lunge Walk Water Level Waist Level circumduction f/b Water Level Chest Level step up/down Water Level Chest Level Walking Equipment 8 box Comments all directions fwd, bck, side, may, may kick Water Level Chest Level Lower Extremity Exercises 4 way hip Details hh on wall Body Position Standing Water Level Waist Level Equipment Ankle Weight- 5.0# Reps/Duration 2 x 10 B LE stretches Details ITB, groin, quad Body Position Standing Water Level Chest Level Equipment noodle Comments standing at wall hip flex/ext, ab/ad, circles, heel raise, toe raise Body Position Standing Water Level Chest Level Equipment Resistance Fins Reps/Duration 10x B Comments at wall, min UE support Lower Extremity Stretches free the hip Body Position Standing Water Level Waist Level HS, Hip flexors Details at wall Body Position Standing Reps/Duration 30 x2 B Upper Extremity Exercises Hor ab/ad with core stab Body Position Standing Water Level Chest Level Reps/Duration 10x Spinal Exercises rotations at wall Body Position Sitting Water Level Neck Level Reps/Duration 15 Comments core stabilization noodle pull down at wall Body Position Standing Equipment lg BBs Reps/Duration 15 Balance step up/down on boxes Water Level Chest Level Reps/Duration 5 B each exercise Comments up/down; up-lift opp knee-down Laverne Activities Laverne Activities Bicycle,Bicycle Backwards, Cross Country,Hip Abduction/ Adduction Equipment belt Duration 10 PT-OP-T Assessment and Plan Start: 11/27/20 13:42 Freq: Status: Active Protocol: Document 04/08/21 09:34 [facility] (Rec: 04/08/21 09:51 [facility] [id number]) Physical Therapy Assessment Goals activities Short Term Goal (STG) Pt will be able to go up and down a curb and stairs w/o LOB w/o UE support. 01/07-pt reports improved STG Duration achieved but pt feels off balance Custodial Goal (LTG) Pt will be able to go for 1 mile walks with no more than 4 /10 pain. 03/02- still gradually progressing stopping d/t LBP after about 1/4 mile w/5/10 pain 04/08-stops about 1/2 mile LTG Duration 05/03/21 balance Short Term Goal (STG) Pt will be able to do SLS 10 sec B 01/07-L 15 sec, R 2 sec 02/09->30 sec L, R 13 sec STG Duration achieved Hull Builder Goal (LTG) Pt will be able to score at least 25/30 on FGA to show improved balance and low risk for falls. 03/02-improved LTG Duration achieved 04/08 strength Short Term Goal (STG) Pt will be indep w/ HEP STG Duration achieved progressing as able Hull Builder Goal (LTG) Pt will score at least 1 full MMT grade higher on all LE MMT in order to improve pt joint stability and dec pain and improve strength to improve pt 's ease w/activities. 01/07-improved 03/02-improving LTG Duration 05/03/21 sit to stand Short Term Goal (STG) Pt will improve 5x sit to stand test to no greater than 15 sec (norm 12 sec) to show improved functional ability. 01/07-1 sec improvement STG Duration achieved Custodial Goal (LTG) Pt will improve 30 sec sit to stand score to 12x to show improved balance and LE strength 03/02-improved to 10 LTG Duration achieved to 13x 04/08 6 min walk Short Term Goal (STG) Pt will be able to complete 6 min walk test without requring a rest break STG Duration achieved Custodial Goal (LTG) Pt waill be able to walk 1171ft with no more than 2/10 pain after to show more age related norms for functional abiltiy in gait. 01/07-improved to 1070ft 02/09-1035ft 4/10 pain 03/02-1138ft 410 LTG Duration 05/03/21 Assessment Summary Assessment Pt did better w/gait today w/ signfiicant improvement w/ weight shift. He is making improvements w/functional strength and balance as noted by testing today. He is no longer at risk for falls per FGA and had a 4 point inc in score and was able to do 3 more sit to stands in 30 sec showing good improvement
--- NOTE | 2021-04-13 15:10 | PT.OTN ---
Current Diagnoses Other chronic pain (04/08/21) Low back pain (04/08/21) Muscle weakness (generalized) (04/08/21) Difficulty in walking, not elsewhere classified (04/08/21) Unsteadiness on feet (04/08/21) Abnormal posture (04/08/21) Physical Therapy Treatment Note PT-OP-A Visit Information Start: 11/27/20 13:42 Freq: Status: Active Protocol: Document 04/13/21 15:01 LJ (Rec: 04/13/21 15:09 LJ [id number]) Out-Patient Physical Therapy Visit Information Visit Information Visit Type Aquatic Treatment Note Visit Start Time 11:45 Visit Stop Time 12:30 Total Visit Minutes 45 Visit Number 35 Number of SALES [employer] Visits 1 PT-OP-B Current Condition Start: 11/27/20 13:42 Freq: Status: Active Protocol: Document 12/01/20 14:05 [facility] (Rec: 12/01/20 15:18 [facility] [id number]) Current Condition History of Current Condition Onset Date worse over the past year Current Complaints balance, gait History of Current Condition Pt reports increasing difficulty with walking over uneven surfaces and has trouble w/stairs and curbs. In random intervals, R and LLE feels like they may give out ( mostly knee giving out sensation). Pt reports B foot pain that is gout like. pt reprots knees hurt at night with occasionally that discomfort being enough to wake him. Pt reports over the past year, inc difficulty with getting out of stair and feeling imbalance when first getting up. Pt reports LB is stiff and he is discouraged because he is trying to do his regular old PT exercises and trying tto walk but it hurts like hell to his legs, hips, knees, feet. He does stretches including bending over. He feels like his walk is a jarring walk and cannot walk on uneven ground. He has to hold a railing when stepping down and feels really uncertain. Pt reports he has been in pain since he was 22 years old. he does not want palliative care. Pt feels like he is occ feeling anticipatory pain and thinks he may have to talk to a psychiatrist. Pt got an electric bike with a low step through and he is scared to get on it. Pt reports he also can't get off the ground w/o pulling up on something. Pt can't get his leg up underneath himself and cannot lift his leg. Prior Treatments and Tests PT in past Treatment Goals Patient/Caregiver Goals Be able to walk distances & be able to walk a trail, be more confident about balance, have an analysis of gaito understand dysfunction, be able to go up/down stairs w/o feeling unstable Personal Factors Other Personal Factors That May Effect B TSA, R TKA, mult hand Therapy/Recovery surgeries, drainage of R hallux & removal of gout crystals, T11-12, L2-3, 3-4, 4 -5 lami and L4-5 fusion PT-OP-C Subjective Start: 11/27/20 13:42 Freq: Status: Active Protocol: Document 04/13/21 15:01 LJ (Rec: 04/13/21 15:09 LJ [id number]) OP-PT Subjective Patient Comments Patient Comments Pt states he is feeling stronger and his balance is better. PT-OP-D Balance Start: 11/27/20 13:42 Freq: Status: Active Protocol: Document 12/01/20 14:05 [facility] (Rec: 12/01/20 15:18 [facility] [id number]) Balance Tests Single Limb Standing Single Limb- Right 2sec w./lat lean & UEs uses Single Limb- Left 5 sec w./lat lean & UEs uses PT-OP-E Functional Tests Start: 11/27/20 13:42 Freq: Status: Active Protocol: Document 04/08/21 09:34 [facility] (Rec: 04/08/21 09:51 [facility] [id number]) Functional Tests 30 Second Sit to Stand Test Score 13 Functional Gait Assessment Score 25 PT-OP-G Mobility & Gait Start: 11/27/20 13:42 Freq: Status: Active Protocol: Document 12/01/20 14:05 [facility] (Rec: 12/01/20 15:18 [facility] [id number]) OP Mobility Evaluation Bed Mobility Rolling able to roll Supine to and from Sit required assist to sit up Transfers Sit to Stand slow and very slow to start moving OP Gait Assessment Comments Gait Comments lat lean w/WB R>L PT-OP-J Posture/Palpation/Skin Start: 11/27/20 13:42 Freq: Status: Active Protocol: Document 12/01/20 14:05 [facility] (Rec: 12/01/20 15:18 [facility] [id number]) Posture Evaluation Comments Posture Comments fwd flex posture PT-OP-M Strength Start: 11/27/20 13:42 Freq: Status: Active Protocol: Document 03/02/21 09:27 [facility] (Rec: 03/02/21 11:57 [facility] [id number]) Hip Strength Hip Manual Muscle Testing Right Flexion (L2) 3+ Fair+ Extension (S1) 3+ Fair+ Abduction 3+ Fair+ External Rotation 4+ Good+ Internal Rotation 5 Normal Comments pain in post knee w/hip ext; Left Flexion (L2) 4 Good Extension (S1) 3 Fair Abduction 3+ Fair+ External Rotation 4+ Good+ Internal Rotation 5 Normal Knee Strength Knee Manual Muscle Testing Right Flexion (S2) 5 Normal Extension (L3) 5 Normal Left Flexion (S2) 5 Normal Extension (L3) 5 Normal Ankle/Foot Strength Ankle and Foot Manual Muscle Testing Right Dorsiflexion (L4) 5 Normal Plantarflexion (S1) 5 Normal Left Dorsiflexion (L4) 5 Normal Plantarflexion (S1) 5 Normal Comments PF tested seated PT-OP-Q Treatments Start: 11/27/20 13:42 Freq: Status: Active Protocol: Document 04/08/21 09:34 [facility] (Rec: 04/08/21 09:51 [facility] [id number]) Gym Equipment Sport Cord walk Cord/Resistance green Reps/Duration 12 Comments focus on push off and no lat lean step ups Exercise Details green fwd & sdie Cord/Resistance green Reps/Duration 10 ea Comments 4 in Therapeutic Exercises Standing Exercises hip abd Side bilateral Equipment Used lvl 1 Reps/Minutes 15 Comments cues for upright position hip ext Side bilateral Equipment Used lvl 1 Reps/Minutes 12 Comments cues for upright position squat Standing Exercise Name sit to stand 30 sec Gait Training Gait Activity wt shifts Description fwd in front of mirror w/hand hold focus on no lat lean Comments and focus on push off w/ progression to step through Neuro Re-Education Treatment Other Activities FGA Details PT-OP-S Aquatic Treatment Start: 01/14/21 14:10 Freq: Status: Active Protocol: Document 04/13/21 15:01 LJ (Rec: 04/13/21 15:09 LJ [id number]) Aquatics Treatment Pool Entry/Exit Pool Entry/Exit Method Stairs Assistance Independent Water Walking Tandem Gait Water Level Chest Level Walking Equipment Ankle Floats Comments fwd/bkw Lunge Walk Water Level Waist Level Walking Equipment Ankle Floats circumduction f/b Water Level Chest Level Walking Equipment Ankle Floats step up/down Water Level Chest Level Walking Equipment 8 box Comments all directions fwd, bck, side, may, may kick Water Level Chest Level Lower Extremity Exercises 4 way hip Details hh on wall Body Position Standing Water Level Waist Level Equipment Ankle Weight- 5.0# Reps/Duration 2 x 10 B aqua bike Water Level Chest Level Reps/Duration 5 min Comments slow pace hamstring curl Reps/Duration 10x Comments no UE support LE stretches Details ITB, groin, quad Body Position Standing Water Level Chest Level Equipment noodle Comments standing at wall hip flex/ext, ab/ad, circles, heel raise, toe raise Body Position Standing Water Level Chest Level Equipment Resistance Fins Reps/Duration 10x B Comments at wall, min UE support Spinal Exercises rotations at wall Body Position Sitting Water Level Neck Level Reps/Duration 15 Comments core stabilization noodle pull down at wall Body Position Standing Equipment lg BBs Reps/Duration 15 Balance step up/down on boxes Water Level Chest Level Reps/Duration 5 B each exercise Comments up/down; up-lift opp knee-down SLS Reps/Duration 30 ea L Comments include 12 SL squats B [place] Activities [place] Activities Bicycle,Bicycle Backwards, Cross Country,Hip Abduction/ Adduction Equipment belt, Med BBs Duration 10 PT-OP-T Assessment and Plan Start: 11/27/20 13:42 Freq: Status: Active Protocol: Document 04/13/21 15:01 STACIE (Rec: 04/13/21 15:09 STACIE [id number]) Physical Therapy Assessment Rehab Potential Rehabilitation Potential Good Evaluation Complexity Number of Personal Factors/Comorbidities 3 or More Number of Body Systems Impaired 4 or More Clinical Presentation at Evaluation Evolving Impairments Impairments Activity Tolerance,Balance, Functional Activities, Functional Mobility,Gait,Pain, Posture,ROM,Soft Tissue Mobility,Strength,Transfers Goals activities Short Term Goal (STG) Pt will be able to go up and down a curb and stairs w/o LOB w/o UE support. 01/07-pt reports improved STG Duration achieved but pt feels off balance Workers Compensation Specialist Goal (LTG) Pt will be able to go for 1 mile walks with no more than 4 /10 pain. 12/20- still gradually progressing stopping d/t LBP after about 1/4 mile w/5/10 pain 04/08-stops about 1/2 mile LTG Duration 05/03/21 balance Short Term Goal (STG) Pt will be able to do SLS 10 sec B 01/07-L 15 sec, R 2 sec 02/09->30 sec L, R 13 sec STG Duration achieved Workers Compensation Specialist Goal (LTG) Pt will be able to score at least 25/30 on FGA to show improved balance and low risk for falls. 03/02-improved LTG Duration achieved 04/08 strength Short Term Goal (STG) Pt will be indep w/ HEP STG Duration achieved progressing as able Jail Goal (LTG) Pt will score at least 1 full MMT grade higher on all LE MMT in order to improve pt joint stability and dec pain and improve strength to improve pt 's ease w/activities. 01/07-improved 03/02-improving LTG Duration 05/03/21 sit to stand Short Term Goal (STG) Pt will improve 5x sit to stand test to no greater than 15 sec (norm 12 sec) to show improved functional ability. 01/07-1 sec improvement STG Duration achieved Jail Goal (LTG) Pt will improve 30 sec sit to stand score to 12x to show improved balance and LE strength 03/02-improved to 10 LTG Duration achieved to 13x 04/08 6 min walk Short Term Goal (STG) Pt will be able to complete 6 min walk test without requring a rest break STG Duration achieved Jail Goal (LTG) Pt waill be able to walk 1171ft with no more than 2/10 pain after to show more age related norms for functional abiltiy in gait. 01/07-improved to 1070ft 02/09-1035ft 10 pain 03/02-1138ft 06/21 LTG Duration 05/03/21 Assessment Summary Assessment Pt did better w/gait today w/ signfiicant improvement w/ weight shift. He is making improvements w/functional strength and balance as noted by testing today. He is no longer at risk for falls per FGA and had a 4 point inc in score and was able to do 3 more sit to stands in 30 sec showing good improvement AQUATICS: Pt improving with core control and balance. Still having difficulty with slow step up/down on boxes. Physical Therapy Plan Frequency and Duration Frequency of Treatment 2x/Week Duration of Treatment 2 months Plan of Care Start Date 03/02/21 Plan of Care End Date 05/03/21 Therapeutic Interventions Therapeutic Interventions Aquatic Therapy,Balance Training,Gait Training,Home Exercise Program,Joint Mobilizations,Manual Therapy, Neuromuscular Re-education, Patient/Caregiver Education, Self-Care/Home Management,Soft Tissue Mobilization,Taping, Therapeutic Activities, Therapeutic Exercises Modalities Cold Pack/Ice Massage,Electric Stimulation,Hot Packs Next Visit Focus/Plan Next Note Type Treatment Note Next Visit Plan Aquatic: work on ability to hip hike especially when WB LLE, progress ther ex in shallow and deep for strengthening core stabilization. Advance hip and LE strengthening exercises with continued fin use Land: continue to work on core and hip strengthening especailly L abd for wt acceptance and push off of RLE
--- NOTE | 2021-04-15 10:13 | PT.OTN ---
Current Diagnoses Other chronic pain (04/15/21) Low back pain (04/15/21) Muscle weakness (generalized) (04/15/21) Difficulty in walking, not elsewhere classified (04/15/21) Unsteadiness on feet (04/15/21) Abnormal posture (04/15/21) Physical Therapy Treatment Note PT-OP-A Visit Information Start: 11/27/20 13:42 Freq: Status: Active Protocol: Document 04/15/21 09:07 [facility] (Rec: 04/15/21 10:12 [facility] [id number]) Out-Patient Physical Therapy Visit Information Visit Information Visit Type Treatment Note Visit Start Time 09:06 Visit Stop Time 09:46 Total Visit Minutes 40 Visit Number 36 Number of [employer] [place] [employer] Visits 0 PT-OP-B Current Condition Start: 11/27/20 13:42 Freq: Status: Active Protocol: Document 12/01/20 14:05 [facility] (Rec: 12/01/20 15:18 [facility] [id number]) Current Condition History of Current Condition Onset Date worse over the past year Current Complaints balance, gait History of Current Condition Pt reports increasing difficulty with walking over uneven surfaces and has trouble w/stairs and curbs. In random intervals, R and LLE feels like they may give out ( mostly knee giving out sensation). Pt reports B foot pain that is gout like. pt reprots knees hurt at night with occasionally that discomfort being enough to wake him. Pt reports over the past year, inc difficulty with getting out of stair and feeling imbalance when first getting up. Pt reports LB is stiff and he is discouraged because he is trying to do his regular old PT exercises and trying tto walk but it hurts like hell to his legs, hips, knees, feet. He does stretches including bending over. He feels like his walk is a jarring walk and cannot walk on uneven ground. He has to hold a railing when stepping down and feels really uncertain. Pt reports he has been in pain since he was 22 years old. he does not want palliative care. Pt feels like he is occ feeling anticipatory pain and thinks he may have to talk to a psychiatrist. Pt got an electric bike with a low step through and he is scared to get on it. Pt reports he also can't get off the ground w/o pulling up on something. Pt can't get his leg up underneath himself and cannot lift his leg. Prior Treatments and Tests PT in past Treatment Goals Patient/Caregiver Goals Be able to walk distances & be able to walk a trail, be more confident about balance, have an analysis of gaito understand dysfunction, be able to go up/down stairs w/o feeling unstable Personal Factors Other Personal Factors That May Effect B TSA, R TKA, mult hand Therapy/Recovery surgeries, drainage of R hallux & removal of gout crystals, T11-12, L2-3, 3-4, 4 -5 lami and L4-5 fusion PT-OP-C Subjective Start: 11/27/20 13:42 Freq: Status: Active Protocol: Document 04/15/21 09:07 [facility] (Rec: 04/15/21 10:12 [facility] [id number]) OP-PT Subjective Patient Comments Patient Comments Pt reports he did one walk of .6 miles w/pain in hips, knees and ankles after. He has not done other walks PT-OP-D Balance Start: 11/27/20 13:42 Freq: Status: Active Protocol: Document 12/01/20 14:05 [facility] (Rec: 12/01/20 15:18 [facility] [id number]) Balance Tests Single Limb Standing Single Limb- Right 2sec w./lat lean & UEs uses Single Limb- Left 5 sec w./lat lean & UEs uses PT-OP-E Functional Tests Start: 11/27/20 13:42 Freq: Status: Active Protocol: Document 04/08/21 09:34 [facility] (Rec: 04/08/21 09:51 [facility] [id number]) Functional Tests 30 Second Sit to Stand Test Score 13 Functional Gait Assessment Score 25 PT-OP-G Mobility & Gait Start: 11/27/20 13:42 Freq: Status: Active Protocol: Document 12/01/20 14:05 [facility] (Rec: 12/01/20 15:18 [facility] [id number]) OP Mobility Evaluation Bed Mobility Rolling able to roll Supine to and from Sit required assist to sit up Transfers Sit to Stand slow and very slow to start moving OP Gait Assessment Comments Gait Comments lat lean w/WB R>L PT-OP-J Posture/Palpation/Skin Start: 11/27/20 13:42 Freq: Status: Active Protocol: Document 12/01/20 14:05 [facility] (Rec: 12/01/20 15:18 [facility] [id number]) Posture Evaluation Comments Posture Comments fwd flex posture PT-OP-M Strength Start: 11/27/20 13:42 Freq: Status: Active Protocol: Document 03/02/21 09:27 [facility] (Rec: 03/02/21 11:57 [facility] [id number]) Hip Strength Hip Manual Muscle Testing Right Flexion (L2) 3+ Fair+ Extension (S1) 3+ Fair+ Abduction 3+ Fair+ External Rotation 4+ Good+ Internal Rotation 5 Normal Comments pain in post knee w/hip ext; Left Flexion (L2) 4 Good Extension (S1) 3 Fair Abduction 3+ Fair+ External Rotation 4+ Good+ Internal Rotation 5 Normal Knee Strength Knee Manual Muscle Testing Right Flexion (S2) 5 Normal Extension (L3) 5 Normal Left Flexion (S2) 5 Normal Extension (L3) 5 Normal Ankle/Foot Strength Ankle and Foot Manual Muscle Testing Right Dorsiflexion (L4) 5 Normal Plantarflexion (S1) 5 Normal Left Dorsiflexion (L4) 5 Normal Plantarflexion (S1) 5 Normal Comments PF tested seated PT-OP-Q Treatments Start: 11/27/20 13:42 Freq: Status: Active Protocol: Document 04/15/21 09:07 [facility] (Rec: 04/15/21 10:12 [facility] [id number]) Gym Equipment Therapeutic Ball seated Ball Size/Color 65cm Body Position Sitting Comments marches x12 B Sport Cord walk Exercise Details fwd, side, backwards Cord/Resistance red Reps/Duration 12 Comments focus on push off and no lat lean step ups Exercise Details green fwd Cord/Resistance green Reps/Duration 15 ea Comments 4 in Therapeutic Exercises Sitting Exercises march Side bilateral Reps/Minutes 5 Comments in chair-very difficult R Standing Exercises step down Standing Exercise Name 3 in Side bilateral Equipment Used shuttle red step Reps/Minutes 15 ea Comments w/hold on black pole heel raises Standing Exercise Name on step Side bilateral Reps/Minutes 30 stretches Standing Exercise Name calf on step Side bilateral Reps/Minutes 1 min PT-OP-S Aquatic Treatment Start: 01/14/21 14:10 Freq: Status: Active Protocol: Document 04/13/21 15:01 STACIE (Rec: 04/13/21 15:09 LJ [id number]) Aquatics Treatment Pool Entry/Exit Pool Entry/Exit Method Stairs Assistance Independent Water Walking Tandem Gait Water Level Chest Level Walking Equipment Ankle Floats Comments fwd/bkw Lunge Walk Water Level Waist Level Walking Equipment Ankle Floats circumduction f/b Water Level Chest Level Walking Equipment Ankle Floats step up/down Water Level Chest Level Walking Equipment 8 box Comments all directions fwd, bck, side, may, may kick Water Level Chest Level Lower Extremity Exercises 4 way hip Details hh on wall Body Position Standing Water Level Waist Level Equipment Ankle Weight- 5.0# Reps/Duration 2 x 10 B aqua bike Water Level Chest Level Reps/Duration 5 min Comments slow pace hamstring curl Reps/Duration 10x Comments no UE support LE stretches Details ITB, groin, quad Body Position Standing Water Level Chest Level Equipment noodle Comments standing at wall hip flex/ext, ab/ad, circles, heel raise, toe raise Body Position Standing Water Level Chest Level Equipment Resistance Fins Reps/Duration 10x B Comments at wall, min UE support Spinal Exercises rotations at wall Body Position Sitting Water Level Neck Level Reps/Duration 15 Comments core stabilization noodle pull down at wall Body Position Standing Equipment lg BBs Reps/Duration 15 Balance step up/down on boxes Water Level Chest Level Reps/Duration 5 B each exercise Comments up/down; up-lift opp knee-down SLS Reps/Duration 30 ea L Comments include 12 SL squats B [place] Activities [place] Activities Bicycle,Bicycle Backwards, Cross [place],Hip Abduction/ Adduction Equipment belt, Med BBs Duration 10 PT-OP-T Assessment and Plan Start: 11/27/20 13:42 Freq: Status: Active Protocol: Document 04/15/21 09:07 [facility] (Rec: 04/15/21 10:12 [facility] [id number]) Physical Therapy Assessment Goals activities Short Term Goal (STG) Pt will be able to go up and down a curb and stairs w/o LOB w/o UE support. 01/07-pt reports improved STG Duration achieved but pt feels off balance [employer] Goal (LTG) Pt will be able to go for 1 mile walks with no more than 4 /10 pain. 03/02- still gradually progressing stopping d/t LBP after about 1/4 mile w/5/10 pain 04/08-stops about 1/2 mile LTG Duration 05/03/21 balance Short Term Goal (STG) Pt will be able to do SLS 10 sec B 01/07-L 15 sec, R 2 sec 02/09->30 sec L, R 13 sec STG Duration achieved Prison Goal (LTG) Pt will be able to score at least 25/30 on FGA to show improved balance and low risk for falls. 03/02-improved LTG Duration achieved 04/08 strength Short Term Goal (STG) Pt will be indep w/ HEP STG Duration achieved progressing as able Sp[employer] Goal (LTG) Pt will score at least 1 full MMT grade higher on all LE MMT in order to improve pt joint stability and dec pain and improve strength to improve pt 's ease w/activities. 01/07-improved 03/02-improving LTG Duration 05/03/21 sit to stand Short Term Goal (STG) Pt will improve 5x sit to stand test to no greater than 15 sec (norm 12 sec) to show improved functional ability. 01/07-1 sec improvement STG Duration achieved Sp[employer]ver Goal (LTG) Pt will improve 30 sec sit to stand score to 12x to show improved balance and LE strength 03/02-improved to 10 LTG Duration achieved to 13x 04/08 6 min walk Short Term Goal (STG) Pt will be able to complete 6 min walk test without requring a rest break STG Duration achieved Prison Goal (LTG) Pt waill be able to walk 1171ft with no more than 2/10 pain after to show more age related norms for functional abiltiy in gait. 01/07-improved to 1070ft 02/09-1035ft 10 pain 03/02-1138ft 410 LTG Duration 05/03/21 Assessment Summary Assessment Pt cont to improve w/gait w/ less lat lean. He is imprvingw /control w/step downs but still struggle significantly. Physical Therapy Plan Frequency and Duration Frequency of Treatment 2x/Week Duration of Treatment 2 months Plan of Care Start Date 03/02/21 Plan of Care End Date 05/03/21 Next Visit Focus/Plan Next Note Type Treatment Note Next Visit Plan Aquatic: work on ability to hip hike especially when WB LLE, progress ther ex in shallow and deep for strengthening core stabilization. Advance hip and LE strengthening exercises with continued fin use Land: continue to work on core and hip strengthening especailly L abd for wt acceptance and push off of RLE ; hip flexor strength
--- NOTE | 2021-04-20 11:45 | PT.OTN ---
Current Diagnoses Other chronic pain (04/20/21) Low back pain (04/20/21) Muscle weakness (generalized) (04/20/21) Difficulty in walking, not elsewhere classified (04/20/21) Unsteadiness on feet (04/20/21) Abnormal posture (04/20/21) Physical Therapy Treatment Note PT-OP-A Visit Information Start: 11/27/20 13:42 Freq: Status: Active Protocol: Document 04/21/21 09:52 [facility] (Rec: 04/21/21 09:59 [facility] [id number]) Out-Patient Physical Therapy Visit Information Visit Information Visit Type Treatment Note Visit Start Time 11:45 Visit Stop Time 12:30 Total Visit Minutes 45 Visit Number 37 Number of APPLIED STATISTICIAN Visits 0 PT-OP-B Current Condition Start: 11/27/20 13:42 Freq: Status: Active Protocol: Document 12/01/20 14:05 [facility] (Rec: 12/01/20 15:18 [facility] [id number]) Current Condition History of Current Condition Onset Date worse over the past year Current Complaints balance, gait History of Current Condition Pt reports increasing difficulty with walking over uneven surfaces and has trouble w/stairs and curbs. In random intervals, R and LLE feels like they may give out ( mostly knee giving out sensation). Pt reports B foot pain that is gout like. pt reprots knees hurt at night with occasionally that discomfort being enough to wake him. Pt reports over the past year, inc difficulty with getting out of stair and feeling imbalance when first getting up. Pt reports LB is stiff and he is discouraged because he is trying to do his regular old PT exercises and trying tto walk but it hurts like hell to his legs, hips, knees, feet. He does stretches including bending over. He feels like his walk is a jarring walk and cannot walk on uneven ground. He has to hold a railing when stepping down and feels really uncertain. Pt reports he has been in pain since he was 22 years old. he does not want palliative care. Pt feels like he is occ feeling anticipatory pain and thinks he may have to talk to a psychiatrist. Pt got an electric bike with a low step through and he is scared to get on it. Pt reports he also can't get off the ground w/o pulling up on something. Pt can't get his leg up underneath himself and cannot lift his leg. Prior Treatments and Tests PT in past Treatment Goals Patient/Caregiver Goals Be able to walk distances & be able to walk a trail, be more confident about balance, have an analysis of gaito understand dysfunction, be able to go up/down stairs w/o feeling unstable Personal Factors Other Personal Factors That May Effect B TSA, R TKA, mult hand Therapy/Recovery surgeries, drainage of R hallux & removal of gout crystals, T11-12, L2-3, 3-4, 4 -5 lami and L4-5 fusion PT-OP-C Subjective Start: 11/27/20 13:42 Freq: Status: Active Protocol: Document 04/21/21 09:52 [facility]AK (Rec: 04/21/21 09:59 [facility]AK [id number]) OP-PT Subjective Patient Comments Patient Comments States still having difficulty with ambulation on stairs, painful and hard to do especially with right LE, often feels like it is blocked . PT-OP-D Balance Start: 11/27/20 13:42 Freq: Status: Active Protocol: Document 12/01/20 14:05 [facility] (Rec: 12/01/20 15:18 [facility] [id number]) Balance Tests Single Limb Standing Single Limb- Right 2sec w./lat lean & UEs uses Single Limb- Left 5 sec w./lat lean & UEs uses PT-OP-E Functional Tests Start: 11/27/20 13:42 Freq: Status: Active Protocol: Document 04/08/21 09:34 [facility] (Rec: 04/08/21 09:51 [facility] [id number]) Functional Tests 30 Second Sit to Stand Test Score 13 Functional Gait Assessment Score 25 PT-OP-G Mobility & Gait Start: 11/27/20 13:42 Freq: Status: Active Protocol: Document 12/01/20 14:05 [facility] (Rec: 12/01/20 15:18 [facility] [id number]) OP Mobility Evaluation Bed Mobility Rolling able to roll Supine to and from Sit required assist to sit up Transfers Sit to Stand slow and very slow to start moving OP Gait Assessment Comments Gait Comments lat lean w/WB R>L PT-OP-J Posture/Palpation/Skin Start: 11/27/20 13:42 Freq: Status: Active Protocol: Document 12/01/20 14:05 [facility] (Rec: 12/01/20 15:18 [facility] [id number]) Posture Evaluation Comments Posture Comments fwd flex posture PT-OP-M Strength Start: 11/27/20 13:42 Freq: Status: Active Protocol: Document 03/02/21 09:27 [facility] (Rec: 03/02/21 11:57 [facility] [id number]) Hip Strength Hip Manual Muscle Testing Right Flexion (L2) 3+ Fair+ Extension (S1) 3+ Fair+ Abduction 3+ Fair+ External Rotation 4+ Good+ Internal Rotation 5 Normal Comments pain in post knee w/hip ext; Left Flexion (L2) 4 Good Extension (S1) 3 Fair Abduction 3+ Fair+ External Rotation 4+ Good+ Internal Rotation 5 Normal Knee Strength Knee Manual Muscle Testing Right Flexion (S2) 5 Normal Extension (L3) 5 Normal Left Flexion (S2) 5 Normal Extension (L3) 5 Normal Ankle/Foot Strength Ankle and Foot Manual Muscle Testing Right Dorsiflexion (L4) 5 Normal Plantarflexion (S1) 5 Normal Left Dorsiflexion (L4) 5 Normal Plantarflexion (S1) 5 Normal Comments PF tested seated PT-OP-Q Treatments Start: 11/27/20 13:42 Freq: Status: Active Protocol: Document 04/15/21 09:07 [facility] (Rec: 04/15/21 10:12 [facility] [id number]) Gym Equipment Therapeutic Ball seated Ball Size/Color 65cm Body Position Sitting Comments marches x12 B Sport Cord walk Exercise Details fwd, side, backwards Cord/Resistance red Reps/Duration 12 Comments focus on push off and no lat lean step ups Exercise Details green fwd Cord/Resistance green Reps/Duration 15 ea Comments 4 in Therapeutic Exercises Sitting Exercises march Side bilateral Reps/Minutes 5 Comments in chair-very difficult R Standing Exercises step down Standing Exercise Name 3 in Side bilateral Equipment Used shuttle red step Reps/Minutes 15 ea Comments w/hold on black pole heel raises Standing Exercise Name on step Side bilateral Reps/Minutes 30 stretches Standing Exercise Name calf on step Side bilateral Reps/Minutes 1 min PT-OP-S Aquatic Treatment Start: 01/14/21 14:10 Freq: Status: Active Protocol: Document 04/21/21 09:52 [facility] (Rec: 04/21/21 09:59 [facility]AK [id number]) Aquatics Treatment Pool Entry/Exit Pool Entry/Exit Method Stairs Assistance Independent Water Walking Tandem Gait Water Level Chest Level Walking Equipment Ankle Floats Level of Assistance Standby Assistance,Verbal Cues Comments fwd/bkw Lunge Walk Water Level Waist Level Walking Equipment Ankle Floats Level of Assistance Standby Assistance,Verbal Cues circumduction f/b Water Level Chest Level Walking Equipment Ankle Floats Level of Assistance Standby Assistance,Verbal Cues step up/down Water Level Chest Level Walking Equipment 8 box Level of Assistance Standby Assistance,Verbal Cues Comments all directions, 4# ankle weights fwd, bck, side, may, may kick Water Level Chest Level Walking Equipment Ankle Floats Level of Assistance Standby Assistance,Verbal Cues Lower Extremity Exercises 4 way hip Details hh on wall Body Position Standing Water Level Waist Level Equipment Ankle Weight- 5.0# Reps/Duration 2 x 10 B LE stretches Details ITB, groin, quad Body Position Standing Water Level Chest Level Equipment noodle Comments standing at wall Spinal Exercises noodle pull down at wall Body Position Standing Equipment lg BBs Reps/Duration 15 Balance SLS Reps/Duration 30 ea L Comments include 12 SL squats B [place] Activities [place] Activities Bicycle,Bicycle Backwards, Cross Country,Hip Abduction/ Adduction Equipment belt, Med BBs, 4# ankle weights Duration 10 PT-OP-T Assessment and Plan Start: 11/27/20 13:42 Freq: Status: Active Protocol: Document 04/21/21 09:52 [facility] (Rec: 04/21/21 09:59 [facility] [id number]) Physical Therapy Assessment Rehab Potential Rehabilitation Potential Good Evaluation Complexity Number of Personal Factors/Comorbidities 3 or More Number of Body Systems Impaired 4 or More Clinical Presentation at Evaluation Evolving Impairments Impairments Activity Tolerance,Balance, Functional Activities, Functional Mobility,Gait,Pain, Posture,ROM,Soft Tissue Mobility,Strength,Transfers Goals activities Short Term Goal (STG) Pt will be able to go up and down a curb and stairs w/o LOB w/o UE support. 01/07-pt reports improved STG Duration achieved but pt feels off balance Senior Care Goal (LTG) Pt will be able to go for 1 mile walks with no more than 4 /10 pain. 03/02- still gradually progressing stopping d/t LBP after about 1/4 mile w/5/10 pain 04/08-stops about 1/2 mile LTG Duration 05/03/21 balance Short Term Goal (STG) Pt will be able to do SLS 10 sec B 01/07-L 15 sec, R 2 sec 02/09->30 sec L, R 13 sec STG Duration achieved Senior Care Goal (LTG) Pt will be able to score at least 25/30 on FGA to show improved balance and low risk for falls. 03/02-improved LTG Duration achieved 04/08 strength Short Term Goal (STG) Pt will be indep w/ HEP STG Duration achieved progressing as able Pantry Worker Goal (LTG) Pt will score at least 1 full MMT grade higher on all LE MMT in order to improve pt joint stability and dec pain and improve strength to improve pt 's ease w/activities. 01/07-improved 03/02-improving LTG Duration 05/03/21 sit to stand Short Term Goal (STG) Pt will improve 5x sit to stand test to no greater than 15 sec (norm 12 sec) to show improved functional ability. 01/07-1 sec improvement STG Duration achieved Senior Care Goal (LTG) Pt will improve 30 sec sit to stand score to 12x to show improved balance and LE strength 03/02-improved to 10 LTG Duration achieved to 13x 04/08 6 min walk Short Term Goal (STG) Pt will be able to complete 6 min walk test without requring a rest break STG Duration achieved Pantry Worker Goal (LTG) Pt waill be able to walk 1171ft with no more than 2/10 pain after to show more age related norms for functional abiltiy in gait. 01/07-improved to 1070ft 02/09-1035ft 4/10 pain 03/02-1138ft 410 LTG Duration 05/03/21 Assessment Summary Assessment Able to ambulate on 8 aquatic box with only mild difficult starting at chest level; will move more shallow to increase challenge next session. Cues for neutral movement of right LE in both shallow and deep ther ex due to excess ER observed. Physical Therapy Plan Frequency and Duration Frequency of Treatment 2x/Week Duration of Treatment 2 months Plan of Care Start Date 03/02/21 Plan of Care End Date 05/03/21 Therapeutic Interventions Therapeutic Interventions Aquatic Therapy,Balance Training,Gait Training,Home Exercise Program,Joint Mobilizations,Manual Therapy, Neuromuscular Re-education, Patient/Caregiver Education, Self-Care/Home Management,Soft Tissue Mobilization,Taping, Therapeutic Activities, Therapeutic Exercises Modalities Cold Pack/Ice Massage,Electric Stimulation,Hot Packs Next Visit Focus/Plan Next Note Type Treatment Note Next Visit Plan Aquatic: work on ability to hip hike especially when WB LLE, move step-up ex more shallow for increased challenge, progress ther ex in shallow and deep for strengthening core stabilization. Advance hip and LE strengthening exercises with continued fin use Land: continue to work on core and hip strengthening especailly L abd for wt acceptance and push off of RLE ; hip flexor strength
--- NOTE | 2021-04-22 12:20 | PT.OTN ---
Current Diagnoses Other chronic pain (04/22/21) Low back pain (04/22/21) Muscle weakness (generalized) (04/22/21) Difficulty in walking, not elsewhere classified (04/22/21) Unsteadiness on feet (04/22/21) Abnormal posture (04/22/21) Physical Therapy Treatment Note PT-OP-A Visit Information Start: 11/27/20 13:42 Freq: Status: Active Protocol: Document 04/22/21 09:28 [facility] (Rec: 04/22/21 12:20 [facility] [id number]) Out-Patient Physical Therapy Visit Information Visit Information Visit Type Treatment Note Visit Note 06/21 Visit Start Time 09:02 Visit Stop Time 09:45 Total Visit Minutes 43 Visit Number 38 Number of [employer]ER[place] TOWER LOADER Visits 0 PT-OP-B Current Condition Start: 11/27/20 13:42 Freq: Status: Active Protocol: Document 12/01/20 14:05 [facility] (Rec: 12/01/20 15:18 [facility] [id number]) Current Condition History of Current Condition Onset Date worse over the past year Current Complaints balance, gait History of Current Condition Pt reports increasing difficulty with walking over uneven surfaces and has trouble w/stairs and curbs. In random intervals, R and LLE feels like they may give out ( mostly knee giving out sensation). Pt reports B foot pain that is gout like. pt reprots knees hurt at night with occasionally that discomfort being enough to wake him. Pt reports over the past year, inc difficulty with getting out of stair and feeling imbalance when first getting up. Pt reports LB is stiff and he is discouraged because he is trying to do his regular old PT exercises and trying tto walk but it hurts like hell to his legs, hips, knees, feet. He does stretches including bending over. He feels like his walk is a jarring walk and cannot walk on uneven ground. He has to hold a railing when stepping down and feels really uncertain. Pt reports he has been in pain since he was 22 years old. he does not want palliative care. Pt feels like he is occ feeling anticipatory pain and thinks he may have to talk to a psychiatrist. Pt got an electric bike with a low step through and he is scared to get on it. Pt reports he also can't get off the ground w/o pulling up on something. Pt can't get his leg up underneath himself and cannot lift his leg. Prior Treatments and Tests PT in past Treatment Goals Patient/Caregiver Goals Be able to walk distances & be able to walk a trail, be more confident about balance, have an analysis of gaito understand dysfunction, be able to go up/down stairs w/o feeling unstable Personal Factors Other Personal Factors That May Effect B TSA, R TKA, mult hand Therapy/Recovery surgeries, drainage of R hallux & removal of gout crystals, T11-12, L2-3, 3-4, 4 -5 lami and L4-5 fusion PT-OP-C Subjective Start: 11/27/20 13:42 Freq: Status: Active Protocol: Document 04/22/21 09:28 [facility] (Rec: 04/22/21 12:20 [facility] [id number]) OP-PT Subjective Patient Comments Patient Comments Pt reports he did a walk of .6 miles. He feels like when he rolls on his foot and pushes more w/toes it improves his gait. PT-OP-D Balance Start: 11/27/20 13:42 Freq: Status: Active Protocol: Document 12/01/20 14:05 [facility] (Rec: 12/01/20 15:18 [facility] [id number]) Balance Tests Single Limb Standing Single Limb- Right 2sec w./lat lean & UEs uses Single Limb- Left 5 sec w./lat lean & UEs uses PT-OP-E Functional Tests Start: 11/27/20 13:42 Freq: Status: Active Protocol: Document 04/08/21 09:34 [facility] (Rec: 04/08/21 09:51 [facility] [id number]) Functional Tests 30 Second Sit to Stand Test Score 13 Functional Gait Assessment Score 25 PT-OP-G Mobility & Gait Start: 11/27/20 13:42 Freq: Status: Active Protocol: Document 12/01/20 14:05 [facility] (Rec: 12/01/20 15:18 [facility] [id number]) OP Mobility Evaluation Bed Mobility Rolling able to roll Supine to and from Sit required assist to sit up Transfers Sit to Stand slow and very slow to start moving OP Gait Assessment Comments Gait Comments lat lean w/WB R>L PT-OP-J Posture/Palpation/Skin Start: 11/27/20 13:42 Freq: Status: Active Protocol: Document 12/01/20 14:05 [facility] (Rec: 12/01/20 15:18 [facility] [id number]) Posture Evaluation Comments Posture Comments fwd flex posture PT-OP-M Strength Start: 11/27/20 13:42 Freq: Status: Active Protocol: Document 03/02/21 09:27 [facility] (Rec: 03/02/21 11:57 [facility] [id number]) Hip Strength Hip Manual Muscle Testing Right Flexion (L2) 3+ Fair+ Extension (S1) 3+ Fair+ Abduction 3+ Fair+ External Rotation 4+ Good+ Internal Rotation 5 Normal Comments pain in post knee w/hip ext; Left Flexion (L2) 4 Good Extension (S1) 3 Fair Abduction 3+ Fair+ External Rotation 4+ Good+ Internal Rotation 5 Normal Knee Strength Knee Manual Muscle Testing Right Flexion (S2) 5 Normal Extension (L3) 5 Normal Left Flexion (S2) 5 Normal Extension (L3) 5 Normal Ankle/Foot Strength Ankle and Foot Manual Muscle Testing Right Dorsiflexion (L4) 5 Normal Plantarflexion (S1) 5 Normal Left Dorsiflexion (L4) 5 Normal Plantarflexion (S1) 5 Normal Comments PF tested seated PT-OP-Q Treatments Start: 11/27/20 13:42 Freq: Status: Active Protocol: Document 04/22/21 09:28 [facility] (Rec: 04/22/21 12:20 [facility] [id number]) Gym Equipment Sport Cord walk Exercise Details fwd, side, backwards Cord/Resistance red Reps/Duration 12 ea Comments focus on push off and no lat lean Therapeutic Exercises Sitting Exercises march Side bilateral Reps/Minutes 10 Comments cues for core stretches Sitting Exercise Name 1. HS stretch 2. piriformis 3. figure 4 Side bilateral Reps/Minutes 5 min total Standing Exercises hip abd Side bilateral Equipment Used lvl 1 Reps/Minutes 20 Comments cues for upright position hip ext Side bilateral Equipment Used lvl 1 Reps/Minutes 20 Comments cues for upright position march Standing Exercise Name cues for core & 1 finger on counter prn Side bilateral Reps/Minutes 15 sidestep Side bilateral Equipment Used L1 Reps/Minutes 10ft squat Standing Exercise Name 1. squat Side bilateral Equipment Used bar in front prn Reps/Minutes 12 Comments cues for buttocks back w/sit back & glute control fro stand up Self-Care/Home Management Treatment Education Other Education plan for DC likely at end of month and pt to cont on his own. Discussed w/pt importance of HEP pool and land and for walking 3-4x/week if he wants to keep advancing gait distance. PT-OP-S Aquatic Treatment Start: 01/14/21 14:10 Freq: Status: Active Protocol: Document 04/21/21 09:52 [facility] (Rec: 04/21/21 09:59 [facility] [id number]) Aquatics Treatment Pool Entry/Exit Pool Entry/Exit Method Stairs Assistance Independent Water Walking Tandem Gait Water Level Chest Level Walking Equipment Ankle Floats Level of Assistance Standby Assistance,Verbal Cues Comments fwd/bkw Lunge Walk Water Level Waist Level Walking Equipment Ankle Floats Level of Assistance Standby Assistance,Verbal Cues circumduction f/b Water Level Chest Level Walking Equipment Ankle Floats Level of Assistance Standby Assistance,Verbal Cues step up/down Water Level Chest Level Walking Equipment 8 box Level of Assistance Standby Assistance,Verbal Cues Comments all directions, 4# ankle weights fwd, bck, , may, may kick Water Level Chest Level Walking Equipment Ankle Floats Level of Assistance Standby Assistance,Verbal Cues Lower Extremity Exercises 4 way hip Details hh on wall Body Position Standing Water Level Waist Level Equipment Ankle Weight- 5.0# Reps/Duration 2 x 10 B LE stretches Details ITB, groin, quad Body Position Standing Water Level Chest Level Equipment noodle Comments standing at wall Spinal Exercises noodle pull down at wall Body Position Standing Equipment lg BBs Reps/Duration 15 Balance SLS Reps/Duration 30 ea L Comments include 12 SL squats B [place] Activities [place] Activities Bicycle,Bicycle Backwards, Cross [place],Hip Abduction/ Adduction Equipment belt, Med BBs, 4# ankle weights Duration 10 PT-OP-T Assessment and Plan Start: 11/27/20 13:42 Freq: Status: Active Protocol: Document 04/22/21 09:28 [facility] (Rec: 04/22/21 12:20 [facility] [id number]) Physical Therapy Assessment Goals activities Short Term Goal (STG) Pt will be able to go up and down a curb and stairs w/o LOB w/o UE support. 01/07-pt reports improved STG Duration achieved but pt feels off balance Associate Attorney Goal (LTG) Pt will be able to go for 1 mile walks with no more than 4 /10 pain. 03/02- still gradually progressing stopping d/t LBP after about 1/4 mile w/5/10 pain 04/08-stops about 1/2 mile LTG Duration 05/03/21 balance Short Term Goal (STG) Pt will be able to do SLS 10 sec B 01/07-L 15 sec, R 2 sec 02/09->30 sec L, R 13 sec STG Duration achieved Associate Attorney Goal (LTG) Pt will be able to score at least 25/30 on FGA to show improved balance and low risk for falls. 03/02-improved LTG Duration achieved 04/08 strength Short Term Goal (STG) Pt will be indep w/ HEP STG Duration achieved progressing as able Associate Attorney Goal (LTG) Pt will score at least 1 full MMT grade higher on all LE MMT in order to improve pt joint stability and dec pain and improve strength to improve pt 's ease w/activities. 01/07-improved 03/02-improving LTG Duration 05/03/21 sit to stand Short Term Goal (STG) Pt will improve 5x sit to stand test to no greater than 15 sec (norm 12 sec) to show improved functional ability. 01/07-1 sec improvement STG Duration achieved Nursing Home Goal (LTG) Pt will improve 30 sec sit to stand score to 12x to show improved balance and LE strength 03/02-improved to 10 LTG Duration achieved to 13x 04/08 6 min walk Short Term Goal (STG) Pt will be able to complete 6 min walk test without requring a rest break STG Duration achieved Nursing Home Goal (LTG) Pt waill be able to walk 1171ft with no more than 2/10 pain after to show more age related norms for functional abiltiy in gait. 01/07-improved to 1070ft 02/09-1035ft 4/10 pain 03/02-1138ft 06/21 LTG Duration 05/03/21 Assessment Summary Assessment Pt did well with exercises w/ cues mostly for posture thoguthout. given another handout w/current land exercises to cont to encourage HEP. Physical Therapy Plan Frequency and Duration Frequency of Treatment 2x/Week Duration of Treatment 2 months Plan of Care Start Date 03/02/21 Plan of Care End Date 05/03/21 Next Visit Focus/Plan Next Note Type Treatment Note Next Visit Plan Aquatic: work on ability to hip hike especially when WB LLE, move step-up ex more shallow for increased challenge, progress ther ex in shallow and deep for strengthening core stabilization. Advance hip and LE strengthening exercises with continued fin use Land: continue to work on core and hip strengthening especailly L abd for wt acceptance and push off of RLE ; hip flexor strength
--- NOTE | 2021-04-29 18:26 | PT.OTN ---
Current Diagnoses Other chronic pain (04/29/21) Low back pain (04/29/21) Muscle weakness (generalized) (04/29/21) Difficulty in walking, not elsewhere classified (04/29/21) Unsteadiness on feet (04/29/21) Abnormal posture (04/29/21) Physical Therapy Treatment Note PT-OP-A Visit Information Start: 11/27/20 13:42 Freq: Status: Active Protocol: Document 04/29/21 09:09 [facility] (Rec: 04/29/21 18:26 [facility] [id number]) Out-Patient Physical Therapy Visit Information Visit Information Visit Type Treatment Note Visit Note 07/21 Visit Start Time 09:04 Visit Stop Time 09:45 Total Visit Minutes 41 Visit Number 39 Number of CHOIR TEACHER Visits 0 PT-OP-B Current Condition Start: 11/27/20 13:42 Freq: Status: Active Protocol: Document 12/01/20 14:05 [facility] (Rec: 12/01/20 15:18 [facility] [id number]) Current Condition History of Current Condition Onset Date worse over the past year Current Complaints balance, gait History of Current Condition Pt reports increasing difficulty with walking over uneven surfaces and has trouble w/stairs and curbs. In random intervals, R and LLE feels like they may give out ( mostly knee giving out sensation). Pt reports B foot pain that is gout like. pt reprots knees hurt at night with occasionally that discomfort being enough to wake him. Pt reports over the past year, inc difficulty with getting out of stair and feeling imbalance when first getting up. Pt reports LB is stiff and he is discouraged because he is trying to do his regular old PT exercises and trying tto walk but it hurts like hell to his legs, hips, knees, feet. He does stretches including bending over. He feels like his walk is a jarring walk and cannot walk on uneven ground. He has to hold a railing when stepping down and feels really uncertain. Pt reports he has been in pain since he was 22 years old. he does not want palliative care. Pt feels like he is occ feeling anticipatory pain and thinks he may have to talk to a psychiatrist. Pt got an electric bike with a low step through and he is scared to get on it. Pt reports he also can't get off the ground w/o pulling up on something. Pt can't get his leg up underneath himself and cannot lift his leg. Prior Treatments and Tests PT in past Treatment Goals Patient/Caregiver Goals Be able to walk distances & be able to walk a trail, be more confident about balance, have an analysis of gaito understand dysfunction, be able to go up/down stairs w/o feeling unstable Personal Factors Other Personal Factors That May Effect B TSA, R TKA, mult hand Therapy/Recovery surgeries, drainage of R hallux & removal of gout crystals, T11-12, L2-3, 3-4, 4 -5 lami and L4-5 fusion PT-OP-C Subjective Start: 11/27/20 13:42 Freq: Status: Active Protocol: Document 04/29/21 09:09 [facility] (Rec: 04/29/21 18:26 [facility] [id number]) OP-PT Subjective Patient Comments Patient Comments Pt reports he is stiff today from doing the [employer] stairs (100 stairs). Difficulty differentiating between mm stiffness from working hard and jt pain when asked. PT-OP-D Balance Start: 11/27/20 13:42 Freq: Status: Active Protocol: Document 12/01/20 14:05 [facility] (Rec: 12/01/20 15:18 [facility] [id number]) Balance Tests Single Limb Standing Single Limb- Right 2sec w./lat lean & UEs uses Single Limb- Left 5 sec w./lat lean & UEs uses PT-OP-E Functional Tests Start: 11/27/20 13:42 Freq: Status: Active Protocol: Document 04/08/21 09:34 [facility] (Rec: 04/08/21 09:51 [facility] [id number]) Functional Tests 30 Second Sit to Stand Test Score 13 Functional Gait Assessment Score 25 PT-OP-G Mobility & Gait Start: 11/27/20 13:42 Freq: Status: Active Protocol: Document 12/01/20 14:05 [facility] (Rec: 12/01/20 15:18 [facility] [id number]) OP Mobility Evaluation Bed Mobility Rolling able to roll Supine to and from Sit required assist to sit up Transfers Sit to Stand slow and very slow to start moving OP Gait Assessment Comments Gait Comments lat lean w/WB R>L PT-OP-J Posture/Palpation/Skin Start: 11/27/20 13:42 Freq: Status: Active Protocol: Document 12/01/20 14:05 [facility] (Rec: 12/01/20 15:18 [facility] [id number]) Posture Evaluation Comments Posture Comments fwd flex posture PT-OP-M Strength Start: 11/27/20 13:42 Freq: Status: Active Protocol: Document 03/02/21 09:27 [facility] (Rec: 03/02/21 11:57 [facility] [id number]) Hip Strength Hip Manual Muscle Testing Right Flexion (L2) 3+ Fair+ Extension (S1) 3+ Fair+ Abduction 3+ Fair+ External Rotation 4+ Good+ Internal Rotation 5 Normal Comments pain in post knee w/hip ext; Left Flexion (L2) 4 Good Extension (S1) 3 Fair Abduction 3+ Fair+ External Rotation 4+ Good+ Internal Rotation 5 Normal Knee Strength Knee Manual Muscle Testing Right Flexion (S2) 5 Normal Extension (L3) 5 Normal Left Flexion (S2) 5 Normal Extension (L3) 5 Normal Ankle/Foot Strength Ankle and Foot Manual Muscle Testing Right Dorsiflexion (L4) 5 Normal Plantarflexion (S1) 5 Normal Left Dorsiflexion (L4) 5 Normal Plantarflexion (S1) 5 Normal Comments PF tested seated PT-OP-Q Treatments Start: 11/27/20 13:42 Freq: Status: Active Protocol: Document 04/29/21 09:09 [facility] (Rec: 04/29/21 18:26 [facility] [id number]) Gym Equipment Sport Cord walk Exercise Details fwd Cord/Resistance red Reps/Duration 15 ea Comments focus on push off and no lat lean step ups Cord/Resistance yellow Reps/Duration 15 ea Comments 4 in w/focus on eccentric control down backwards Therapeutic Exercises Standing Exercises gait at wall Standing Exercise Name alt w/focus on PF & Knee ext Side bilateral Reps/Minutes 6x2sec step down Standing Exercise Name blue foam Side bilateral Reps/Minutes 15 ea Comments cues for slow down hip abd Side bilateral Equipment Used lvl 1 Reps/Minutes 3x10 Comments cues for upright position hip ext Side bilateral Equipment Used lvl 1 Reps/Minutes 3x10 Comments cues for upright position step up Standing Exercise Name 1. lat step up then down Side bilateral Equipment Used blue foam Reps/Minutes 15 ea Comments cues for slow control Self-Care/Home Management Treatment Education Other Education review plan for DC likely at end of month and pt to cont on his own. Discussed w/pt importance of HEP pool and land and for walking 3-4x/week and doing bike and/or pool on off days to keep advancing his mobility, edu re: importance of when choosing and doing activities, differentiating between mm soreness after and jt soreness d/t doing too much. edu to ice joints when they are sore PT-OP-S Aquatic Treatment Start: 01/14/21 14:10 Freq: Status: Active Protocol: Document 04/21/21 09:52 [facility] (Rec: 04/21/21 09:59 [facility] [id number]) Aquatics Treatment Pool Entry/Exit Pool Entry/Exit Method Stairs Assistance Independent Water Walking Tandem Gait Water Level Chest Level Walking Equipment Ankle Floats Level of Assistance Standby Assistance,Verbal Cues Comments fwd/bkw Lunge Walk Water Level Waist Level Walking Equipment Ankle Floats Level of Assistance Standby Assistance,Verbal Cues circumduction f/b Water Level Chest Level Walking Equipment Ankle Floats Level of Assistance Standby Assistance,Verbal Cues step up/down Water Level Chest Level Walking Equipment 8 box Level of Assistance Standby Assistance,Verbal Cues Comments all directions, 4# ankle weights fwd, bck, side, may, may kick Water Level Chest Level Walking Equipment Ankle Floats Level of Assistance Standby Assistance,Verbal Cues Lower Extremity Exercises 4 way hip Details hh on wall Body Position Standing Water Level Waist Level Equipment Ankle Weight- 5.0# Reps/Duration 2 x 10 B LE stretches Details ITB, groin, quad Body Position Standing Water Level Chest Level Equipment noodle Comments standing at wall Spinal Exercises noodle pull down at wall Body Position Standing Equipment lg BBs Reps/Duration 15 Balance SLS Reps/Duration 30 ea L Comments include 12 SL squats B [place] Activities [place] Activities Bicycle,Bicycle Backwards, Cross Country,Hip Abduction/ Adduction Equipment belt, Med BBs, 4# ankle weights Duration 10 PT-OP-T Assessment and Plan Start: 11/27/20 13:42 Freq: Status: Active Protocol: Document 04/29/21 09:09 [facility] (Rec: 04/29/21 18:26 [facility] [id number]) Physical Therapy Assessment Goals activities Short Term Goal (STG) Pt will be able to go up and down a curb and stairs w/o LOB w/o UE support. 01/07-pt reports improved STG Duration achieved but pt feels off balance Calculating Machine Operator Goal (LTG) Pt will be able to go for 1 mile walks with no more than 4 /10 pain. 03/02- still gradually progressing stopping d/t LBP after about 1/4 mile w/5/10 pain 04/08-stops about 1/2 mile LTG Duration 05/03/21 balance Short Term Goal (STG) Pt will be able to do SLS 10 sec B 01/07-L 15 sec, R 2 sec 02/09->30 sec L, R 13 sec STG Duration achieved Calculating Machine Operator Goal (LTG) Pt will be able to score at least 25/30 on FGA to show improved balance and low risk for falls. 03/02-improved LTG Duration achieved 04/08 strength Short Term Goal (STG) Pt will be indep w/ HEP STG Duration achieved progressing as able Calculating Machine Operator Goal (LTG) Pt will score at least 1 full MMT grade higher on all LE MMT in order to improve pt joint stability and dec pain and improve strength to improve pt 's ease w/activities. 01/07-improved 03/02-improving LTG Duration 05/03/21 sit to stand Short Term Goal (STG) Pt will improve 5x sit to stand test to no greater than 15 sec (norm 12 sec) to show improved functional ability. 01/07-1 sec improvement STG Duration achieved Calculating Machine Operator Goal (LTG) Pt will improve 30 sec sit to stand score to 12x to show improved balance and LE strength 03/02-improved to 10 LTG Duration achieved to 13x 04/08 6 min walk Short Term Goal (STG) Pt will be able to complete 6 min walk test without requring a rest break STG Duration achieved Calculating Machine Operator Goal (LTG) Pt waill be able to walk 1171ft with no more than 2/10 pain after to show more age related norms for functional abiltiy in gait. 01/07-improved to 1070ft 02/09-1035ft 10 pain 03/02-1138ft 10 LTG Duration 05/03/21 Assessment Summary Assessment Pt did better w/exercise performance today and is showing more control w/step downs. He does still have weakness w/PF and glutes which made the gait at wall exercise difficult. Physical Therapy Plan Frequency and Duration Frequency of Treatment 2x/Week Duration of Treatment 2 months Plan of Care Start Date 03/02/21 Plan of Care End Date 05/03/21 Next Visit Focus/Plan Next Note Type Treatment Note Next Visit Plan PN next land visit
--- NOTE | 2021-05-01 15:09 | PT.OTN ---
Current Diagnoses Other chronic pain (04/29/21) Low back pain (04/29/21) Muscle weakness (generalized) (04/29/21) Difficulty in walking, not elsewhere classified (04/29/21) Unsteadiness on feet (04/29/21) Abnormal posture (04/29/21) Physical Therapy Treatment Note PT-OP-A Visit Information Start: 11/27/20 13:42 Freq: Status: Active Protocol: Document 05/01/21 14:50 [facility] (Rec: 05/01/21 15:09 [facility] [id number]) Out-Patient Physical Therapy Visit Information Visit Information Visit Type Aquatic Treatment Note Visit Start Time 12:30 Visit Stop Time 01:15 Total Visit Minutes 45 Visit Number 40 Number of PLC CONTROLS ENGINEER Visits 1 PT-OP-B Current Condition Start: 11/27/20 13:42 Freq: Status: Active Protocol: Document 12/01/20 14:05 [facility] (Rec: 12/01/20 15:18 [facility] [id number]) Current Condition History of Current Condition Onset Date worse over the past year Current Complaints balance, gait History of Current Condition Pt reports increasing difficulty with walking over uneven surfaces and has trouble w/stairs and curbs. In random intervals, R and LLE feels like they may give out ( mostly knee giving out sensation). Pt reports B foot pain that is gout like. pt reprots knees hurt at night with occasionally that discomfort being enough to wake him. Pt reports over the past year, inc difficulty with getting out of stair and feeling imbalance when first getting up. Pt reports LB is stiff and he is discouraged because he is trying to do his regular old PT exercises and trying tto walk but it hurts like hell to his legs, hips, knees, feet. He does stretches including bending over. He feels like his walk is a jarring walk and cannot walk on uneven ground. He has to hold a railing when stepping down and feels really uncertain. Pt reports he has been in pain since he was 22 years old. he does not want palliative care. Pt feels like he is occ feeling anticipatory pain and thinks he may have to talk to a psychiatrist. Pt got an electric bike with a low step through and he is scared to get on it. Pt reports he also can't get off the ground w/o pulling up on something. Pt can't get his leg up underneath himself and cannot lift his leg. Prior Treatments and Tests PT in past Treatment Goals Patient/Caregiver Goals Be able to walk distances & be able to walk a trail, be more confident about balance, have an analysis of gaito understand dysfunction, be able to go up/down stairs w/o feeling unstable Personal Factors Other Personal Factors That May Effect B TSA, R TKA, mult hand Therapy/Recovery surgeries, drainage of R hallux & removal of gout crystals, T11-12, L2-3, 3-4, 4 -5 lami and L4-5 fusion PT-OP-C Subjective Start: 11/27/20 13:42 Freq: Status: Active Protocol: Document 05/01/21 14:50 [facility] (Rec: 05/01/21 15:09 [facility] [id number]) OP-PT Subjective Patient Comments Patient Comments Pt states he feels exercising is improving his strength and gait. He would like an aquatic HEP to continue at pool on his own PT-OP-D Balance Start: 11/27/20 13:42 Freq: Status: Active Protocol: Document 12/01/20 14:05 [facility] (Rec: 12/01/20 15:18 [facility] [id number]) Balance Tests Single Limb Standing Single Limb- Right 2sec w./lat lean & UEs uses Single Limb- Left 5 sec w./lat lean & UEs uses PT-OP-E Functional Tests Start: 11/27/20 13:42 Freq: Status: Active Protocol: Document 04/08/21 09:34 [facility] (Rec: 04/08/21 09:51 [facility] [id number]) Functional Tests 30 Second Sit to Stand Test Score 13 Functional Gait Assessment Score 25 PT-OP-G Mobility & Gait Start: 11/27/20 13:42 Freq: Status: Active Protocol: Document 12/01/20 14:05 [facility] (Rec: 12/01/20 15:18 [facility] [id number]) OP Mobility Evaluation Bed Mobility Rolling able to roll Supine to and from Sit required assist to sit up Transfers Sit to Stand slow and very slow to start moving OP Gait Assessment Comments Gait Comments lat lean w/WB R>L PT-OP-J Posture/Palpation/Skin Start: 11/27/20 13:42 Freq: Status: Active Protocol: Document 12/01/20 14:05 [facility] (Rec: 12/01/20 15:18 [facility] [id number]) Posture Evaluation Comments Posture Comments fwd flex posture PT-OP-M Strength Start: 11/27/20 13:42 Freq: Status: Active Protocol: Document 03/02/21 09:27 [facility] (Rec: 03/02/21 11:57 [facility] [id number]) Hip Strength Hip Manual Muscle Testing Right Flexion (L2) 3+ Fair+ Extension (S1) 3+ Fair+ Abduction 3+ Fair+ External Rotation 4+ Good+ Internal Rotation 5 Normal Comments pain in post knee w/hip ext; Left Flexion (L2) 4 Good Extension (S1) 3 Fair Abduction 3+ Fair+ External Rotation 4+ Good+ Internal Rotation 5 Normal Knee Strength Knee Manual Muscle Testing Right Flexion (S2) 5 Normal Extension (L3) 5 Normal Left Flexion (S2) 5 Normal Extension (L3) 5 Normal Ankle/Foot Strength Ankle and Foot Manual Muscle Testing Right Dorsiflexion (L4) 5 Normal Plantarflexion (S1) 5 Normal Left Dorsiflexion (L4) 5 Normal Plantarflexion (S1) 5 Normal Comments PF tested seated PT-OP-Q Treatments Start: 11/27/20 13:42 Freq: Status: Active Protocol: Document 04/29/21 09:09 [facility] (Rec: 04/29/21 18:26 [facility] [id number]) Gym Equipment Sport Cord walk Exercise Details fwd Cord/Resistance red Reps/Duration 15 ea Comments focus on push off and no lat lean step ups Cord/Resistance yellow Reps/Duration 15 ea Comments 4 in w/focus on eccentric control down backwards Therapeutic Exercises Standing Exercises gait at wall Standing Exercise Name alt w/focus on PF & Knee ext Side bilateral Reps/Minutes 6x2sec step down Standing Exercise Name blue foam Side bilateral Reps/Minutes 15 ea Comments cues for slow down hip abd Side bilateral Equipment Used lvl 1 Reps/Minutes 3x10 Comments cues for upright position hip ext Side bilateral Equipment Used lvl 1 Reps/Minutes 3x10 Comments cues for upright position step up Standing Exercise Name 1. lat step up then down Side bilateral Equipment Used blue foam Reps/Minutes 15 ea Comments cues for slow control Self-Care/Home Management Treatment Education Other Education review plan for DC likely at end of month and pt to cont on his own. Discussed w/pt importance of HEP pool and land and for walking 3-4x/week and doing bike and/or pool on off days to keep advancing his mobility, edu re: importance of when choosing and doing activities, differentiating between mm soreness after and jt soreness d/t doing too much. edu to ice joints when they are sore PT-OP-S Aquatic Treatment Start: 01/14/21 14:10 Freq: Status: Active Protocol: Document 05/01/21 14:50 [facility] (Rec: 05/01/21 15:09 [facility] [id number]) Aquatics Treatment Pool Entry/Exit Pool Entry/Exit Method Stairs Assistance Independent Water Walking Tandem Gait Water Level Chest Level Walking Equipment Ankle Floats Level of Assistance Standby Assistance,Verbal Cues Comments fwd/bkw Lunge Walk Water Level Waist Level Walking Equipment Ankle Floats Level of Assistance Standby Assistance,Verbal Cues circumduction f/b Water Level Chest Level Walking Equipment Ankle Floats Level of Assistance Standby Assistance,Verbal Cues step up/down Water Level Chest Level Walking Equipment 8 box Level of Assistance Standby Assistance,Verbal Cues Comments all directions, 4# ankle weights fwd, bck, side, may, may kick Water Level Chest Level Walking Equipment Ankle Floats Level of Assistance Standby Assistance,Verbal Cues Lower Extremity Exercises 4 way hip Details hh on wall Body Position Standing Water Level Waist Level Equipment Ankle Weight- 5.0# Reps/Duration 2 x 10 B hamstring curl Reps/Duration 10x Comments no UE support LE stretches Details ITB, groin, quad Body Position Standing Water Level Chest Level Equipment noodle Comments standing at wall hip flex/ext, ab/ad, circles, heel raise, toe raise Body Position Standing Water Level Chest Level Equipment Resistance Fins Reps/Duration 10x B Comments at wall, min UE support Lower Extremity Stretches gastroc, soleus Reps/Duration 30 x 2 B HS, Hip flexors Details at wall Body Position Standing Reps/Duration 30 x2 B Upper Extremity Exercises bicep,tricep; fwd punch Body Position Standing Water Level Chest Level Equipment hydro worx med bells Reps/Duration 15x flex/ext; ab/ad Body Position Standing Water Level Chest Level Equipment hydro worx med bells Reps/Duration 15x Hor ab/ad with core stab Body Position Standing Water Level Chest Level Equipment hydro worx med bells Reps/Duration 15x Spinal Exercises rotations at wall Body Position Sitting Water Level Neck Level Reps/Duration 15 Comments core stabilization noodle pull down at wall Body Position Standing Equipment lg BBs Reps/Duration 15 deep water hang Body Position Standing Water Level [place] Equipment pool edge Reps/Duration 30x2 Balance step up/down on boxes Water Level Chest Level Reps/Duration 5 B each exercise Comments up/down; up-lift opp knee-down SLS Reps/Duration 30 ea L Comments include 12 SL squats B [place] Activities [place] Activities Bicycle Backwards,Cross Country,Hip Abduction/ Adduction Other Activities pendulum Equipment belt, Med BBs, ankle floats Duration 10 PT-OP-T Assessment and Plan Start: 11/27/20 13:42 Freq: Status: Active Protocol: Document 05/01/21 14:50 [facility] (Rec: 05/01/21 15:09 [facility] [id number]) Physical Therapy Assessment Rehab Potential Rehabilitation Potential Good Evaluation Complexity Number of Personal Factors/Comorbidities 3 or More Number of Body Systems Impaired 4 or More Clinical Presentation at Evaluation Evolving Impairments Impairments Activity Tolerance,Balance, Functional Activities, Functional Mobility,Gait,Pain, Posture,ROM,Soft Tissue Mobility,Strength,Transfers Goals activities Short Term Goal (STG) Pt will be able to go up and down a curb and stairs w/o LOB w/o UE support. 01/07-pt reports improved STG Duration achieved but pt feels off balance Long-Term Goal (LTG) Pt will be able to go for 1 mile walks with no more than 4 /10 pain. 03/02- still gradually progressing stopping d/t LBP after about 1/4 mile w/5/10 pain 04/08-stops about 1/2 mile LTG Duration 05/03/21 balance Short Term Goal (STG) Pt will be able to do SLS 10 sec B 01/07-L 15 sec, R 2 sec 02/09->30 sec L, R 13 sec STG Duration achieved Long-Term Goal (LTG) Pt will be able to score at least 25/30 on FGA to show improved balance and low risk for falls. 03/02-improved LTG Duration achieved 04/08 strength Short Term Goal (STG) Pt will be indep w/ HEP STG Duration achieved progressing as able Hand Hide Stretcher Goal (LTG) Pt will score at least 1 full MMT grade higher on all LE MMT in order to improve pt joint stability and dec pain and improve strength to improve pt 's ease w/activities. 01/07-improved 03/02-improving LTG Duration 05/03/21 sit to stand Short Term Goal (STG) Pt will improve 5x sit to stand test to no greater than 15 sec (norm 12 sec) to show improved functional ability. 01/07-1 sec improvement STG Duration achieved Hand Hide Stretcher Goal (LTG) Pt will improve 30 sec sit to stand score to 12x to show improved balance and LE strength 03/02-improved to 10 LTG Duration achieved to 13x 04/08 6 min walk Short Term Goal (STG) Pt will be able to complete 6 min walk test without requring a rest break STG Duration achieved Long-Term Goal (LTG) Pt waill be able to walk 1171ft with no more than 2/10 pain after to show more age related norms for functional abiltiy in gait. 01/07-improved to 1070ft 02/09-1035ft 4/10 pain 03/02-1138ft 410 LTG Duration 05/03/21 Assessment Summary Assessment Pt did well with balance exercises today. Good control with ankle floats in deep water. His balance is improving as evidenced by no LOB with any of the gait activities. Physical Therapy Plan Frequency and Duration Frequency of Treatment 2x/Week Duration of Treatment 2 months Plan of Care Start Date 03/02/21 Plan of Care End Date 05/03/21 Therapeutic Interventions Therapeutic Interventions Aquatic Therapy,Balance Training,Gait Training,Home Exercise Program,Joint Mobilizations,Manual Therapy, Neuromuscular Re-education, Patient/Caregiver Education, Self-Care/Home Management,Soft Tissue Mobilization,Taping, Therapeutic Activities, Therapeutic Exercises Modalities Cold Pack/Ice Massage,Electric Stimulation,Hot Packs Next Visit Focus/Plan Next Note Type Treatment Note Next Visit Plan Aquatic: work on ability to hip hike especially when WB LLE, move step-up ex more shallow for increased challenge, progress ther ex in shallow and deep for strengthening core stabilization. Advance hip and LE strengthening exercises . Provide HEP and review next visit
--- NOTE | 2021-05-06 10:02 | PT.OTN ---
Current Diagnoses Other chronic pain (05/06/21) Low back pain (05/06/21) Muscle weakness (generalized) (05/06/21) Difficulty in walking, not elsewhere classified (05/06/21) Unsteadiness on feet (05/06/21) Abnormal posture (05/06/21) Physical Therapy Treatment Note PT-OP-A Visit Information Start: 11/27/20 13:42 Freq: Status: Active Protocol: Document 05/06/21 09:05 [facility] (Rec: 05/06/21 10:02 [facility] [id number]) Out-Patient Physical Therapy Visit Information Visit Information Visit Type Treatment Note Visit Note 03/23 Visit Start Time 09:05 Visit Stop Time 09:50 Total Visit Minutes 45 Visit Number 21 Number of ELECTRICAL MANAGER Visits 0 PT-OP-B Current Condition Start: 11/27/20 13:42 Freq: Status: Active Protocol: Document 12/01/20 14:05 [facility] (Rec: 12/01/20 15:18 [facility] [id number]) Current Condition History of Current Condition Onset Date worse over the past year Current Complaints balance, gait History of Current Condition Pt reports increasing difficulty with walking over uneven surfaces and has trouble w/stairs and curbs. In random intervals, R and LLE feels like they may give out ( mostly knee giving out sensation). Pt reports B foot pain that is gout like. pt reprots knees hurt at night with occasionally that discomfort being enough to wake him. Pt reports over the past year, inc difficulty with getting out of stair and feeling imbalance when first getting up. Pt reports LB is stiff and he is discouraged because he is trying to do his regular old PT exercises and trying tto walk but it hurts like hell to his legs, hips, knees, feet. He does stretches including bending over. He feels like his walk is a jarring walk and cannot walk on uneven ground. He has to hold a railing when stepping down and feels really uncertain. Pt reports he has been in pain since he was 22 years old. he does not want palliative care. Pt feels like he is occ feeling anticipatory pain and thinks he may have to talk to a psychiatrist. Pt got an electric bike with a low step through and he is scared to get on it. Pt reports he also can't get off the ground w/o pulling up on something. Pt can't get his leg up underneath himself and cannot lift his leg. Prior Treatments and Tests PT in past Treatment Goals Patient/Caregiver Goals Be able to walk distances & be able to walk a trail, be more confident about balance, have an analysis of gaito understand dysfunction, be able to go up/down stairs w/o feeling unstable Personal Factors Other Personal Factors That May Effect B TSA, R TKA, mult hand Therapy/Recovery surgeries, drainage of R hallux & removal of gout crystals, T11-12, L2-3, 3-4, 4 -5 lami and L4-5 fusion PT-OP-C Subjective Start: 11/27/20 13:42 Freq: Status: Active Protocol: Document 05/06/21 09:05 [facility] (Rec: 05/06/21 10:02 [facility] [id number]) OP-PT Subjective Patient Comments Patient Comments Pt reports walking/standing for 1 hour yesterday for a tour. he thinks it was about a mile. No pain after. 2 smallw alks this weekend PT-OP-D Balance Start: 11/27/20 13:42 Freq: Status: Active Protocol: Document 12/01/20 14:05 [facility] (Rec: 12/01/20 15:18 [facility] [id number]) Balance Tests Single Limb Standing Single Limb- Right 2sec w./lat lean & UEs uses Single Limb- Left 5 sec w./lat lean & UEs uses PT-OP-E Functional Tests Start: 11/27/20 13:42 Freq: Status: Active Protocol: Document 05/06/21 09:05 [facility] (Rec: 05/06/21 10:02 [facility] [id number]) Functional Tests 6 Minute Walk Test Distance 1226ft PT-OP-G Mobility & Gait Start: 11/27/20 13:42 Freq: Status: Active Protocol: Document 12/01/20 14:05 [facility] (Rec: 12/01/20 15:18 [facility] [id number]) OP Mobility Evaluation Bed Mobility Rolling able to roll Supine to and from Sit required assist to sit up Transfers Sit to Stand slow and very slow to start moving OP Gait Assessment Comments Gait Comments lat lean w/WB R>L PT-OP-J Posture/Palpation/Skin Start: 09/16/21 13:42 Freq: Status: Active Protocol: Document 12/01/20 14:05 [facility] (Rec: 12/01/20 15:18 [facility] [id number]) Posture Evaluation Comments Posture Comments fwd flex posture PT-OP-M Strength Start: 11/27/20 13:42 Freq: Status: Active Protocol: Document 05/06/21 09:05 [facility] (Rec: 05/06/21 10:02 [facility] [id number]) Hip Strength Hip Manual Muscle Testing Right Flexion (L2) 4- Good- Extension (S1) 3+ Fair+ Abduction 3+ Fair+ External Rotation 4+ Good+ Internal Rotation 5 Normal Left Flexion (L2) 4 Good Extension (S1) 3+ Fair+ Abduction 3+ Fair+ External Rotation 5 Normal Internal Rotation 5 Normal Knee Strength Knee Manual Muscle Testing Right Flexion (S2) 5 Normal Extension (L3) 5 Normal Left Flexion (S2) 5 Normal Extension (L3) 5 Normal Ankle/Foot Strength Ankle and Foot Manual Muscle Testing Right Dorsiflexion (L4) 5 Normal Plantarflexion (S1) 5 Normal Left Dorsiflexion (L4) 5 Normal Plantarflexion (S1) 5 Normal Comments PF tested seated PT-OP-Q Treatments Start: 11/27/20 13:42 Freq: Status: Active Protocol: Document 05/06/21 09:05 [facility] (Rec: 05/06/21 10:02 [facility] [id number]) Gym Equipment Shuttle Balance red clips Details fwd & side Reps/Duration w/PT pertubations Comments fwd: WBOS & NBOS , staggered stance side: WBOS & NBOS Therapeutic Exercises Prone Exercises hip ext Side bilateral Reps/Minutes 10 Sidelying Exercises hip abd Sidelying Exercise Name cues for no rolling back Side bilateral Reps/Minutes 15 Standing Exercises hip abd Side bilateral Equipment Used lvl 2 Reps/Minutes 15 Comments cues for upright position hip ext Side bilateral Equipment Used lvl 2 Reps/Minutes 15 Comments cues for upright position squat Standing Exercise Name 1. squat Side bilateral Equipment Used counter in front prn Reps/Minutes 12 Comments cues for buttocks back w/sit back & glute control fro stand up PT-OP-S Aquatic Treatment Start: 01/14/21 14:10 Freq: Status: Active Protocol: Document 05/01/21 14:50 [facility] (Rec: 02/18/22 15:09 [facility] [id number]) Aquatics Treatment Pool Entry/Exit Pool Entry/Exit Method Stairs Assistance Independent Water Walking Tandem Gait Water Level Chest Level Walking Equipment Ankle Floats Level of Assistance Standby Assistance,Verbal Cues Comments fwd/bkw Lunge Walk Water Level Waist Level Walking Equipment Ankle Floats Level of Assistance Standby Assistance,Verbal Cues circumduction f/b Water Level Chest Level Walking Equipment Ankle Floats Level of Assistance Standby Assistance,Verbal Cues step up/down Water Level Chest Level Walking Equipment 8 box Level of Assistance Standby Assistance,Verbal Cues Comments all directions, 4# ankle weights fwd, bck, side, may, may kick Water Level Chest Level Walking Equipment Ankle Floats Level of Assistance Standby Assistance,Verbal Cues Lower Extremity Exercises [address] way hip Details hh on wall Body Position Standing Water Level Waist Level Equipment Ankle Weight- 5.0# Reps/Duration 2 x 10 B hamstring curl Reps/Duration 10x Comments no UE support LE stretches Details ITB, groin, quad Body Position Standing Water Level Chest Level Equipment noodle Comments standing at wall hip flex/ext, ab/ad, circles, heel raise, toe raise Body Position Standing Water Level Chest Level Equipment Resistance Fins Reps/Duration 10x B Comments at wall, min UE support Lower Extremity Stretches gastroc, soleus Reps/Duration 30 x 2 B HS, Hip flexors Details at wall Body Position Standing Reps/Duration 30 x2 B Upper Extremity Exercises bicep,tricep; fwd punch Body Position Standing Water Level Chest Level Equipment hydro worx med bells Reps/Duration 15x flex/ext; ab/ad Body Position Standing Water Level Chest Level Equipment hydro worx med bells Reps/Duration 15x Hor ab/ad with core stab Body Position Standing Water Level Chest Level Equipment hydro worx med bells Reps/Duration 15x Spinal Exercises rotations at wall Body Position Sitting Water Level Neck Level Reps/Duration 15 Comments core stabilization noodle pull down at wall Body Position Standing Equipment lg BBs Reps/Duration 15 deep water hang Body Position Standing Water Level Vadito Equipment pool edge Reps/Duration 30x2 Balance step up/down on boxes Water Level Chest Level Reps/Duration 5 B each exercise Comments up/down; up-lift opp knee-down SLS Reps/Duration 30 ea L Comments include 12 SL squats B V[place]ito Activities [place]ito Activities Bicycle Backwards,Cross Country,Hip Abduction/ Adduction Other Activities pendulum Equipment belt, Med BBs, ankle floats Duration 10 PT-OP-T Assessment and Plan Start: 11/27/20 13:42 Freq: Status: Active Protocol: Document 05/06/21 09:05 [facility] (Rec: 05/06/21 10:02 [facility] [id number]) Physical Therapy Assessment Goals activities Short Term Goal (STG) Pt will be able to go up and down a curb and stairs w/o LOB w/o UE support. 01/07-pt reports improved STG Duration achieved but pt feels off balance Correction Goal (LTG) Pt will be able to go for 1 mile walks with no more than 4 /10 pain. 03/02- still gradually progressing stopping d/t LBP after about 1/4 mile w/5/10 pain 05/06-pt walked for about 1 hr for a tour 04/08-stops about 1/2 mile LTG Duration achieved to do about 1 mile/ hour w/tour w/o pain balance Short Term Goal (STG) Pt will be able to do SLS 10 sec B 01/07-L 15 sec, R 2 sec 02/09->30 sec L, R 13 sec STG Duration achieved Correction Goal (LTG) Pt will be able to score at least 25/30 on FGA to show improved balance and low risk for falls. 03/02-improved LTG Duration achieved 04/08 strength Short Term Goal (STG) Pt will be indep w/ HEP STG Duration achieved progressing as able Correction Goal (LTG) Pt will score at least 1 full MMT grade higher on all LE MMT in order to improve pt joint stability and dec pain and improve strength to improve pt 's ease w/activities. 01/07-improved 03/02-improving LTG Duration 06/03/21 sit to stand Short Term Goal (STG) Pt will improve 5x sit to stand test to no greater than 15 sec (norm 12 sec) to show improved functional ability. 01/07-1 sec improvement STG Duration achieved Cable Splicer Goal (LTG) Pt will improve 30 sec sit to stand score to 12x to show improved balance and LE strength 03/02-improved to 10 LTG Duration achieved to 13x 04/08 6 min walk Short Term Goal (STG) Pt will be able to complete 6 min walk test without requring a rest break STG Duration achieved Cable Splicer Goal (LTG) Pt waill be able to walk 1171ft with no more than 2/10 pain after to show more age related norms for functional abiltiy in gait. 01/07-improved to 1070ft 02/09-1035ft 06/21 pain 03/02-1138ft 06/21 LTG Duration achieved 1226ft w/2/10 pain Assessment Summary Assessment pt still does need some cueing w/his exercises at this time. He has progressed signficiantly though and is showing dec pain w/inc activity. He still shows weakness and does require cues for HEP. Plan for seeing pt for a few more visits to set w /HEP then DC to indep HEP. Physical Therapy Plan Frequency and Duration Frequency of Treatment 2x/Week Duration of Treatment 1 month Plan of Care Start Date 05/06/21 Plan of Care End Date 06/03/21 Therapeutic Interventions Therapeutic Interventions Aquatic Therapy,Balance Training,Gait Training,Home Exercise Program,Joint Mobilizations,Manual Therapy, Neuromuscular Re-education, Patient/Caregiver Education, Self-Care/Home Management,Soft Tissue Mobilization,Taping, Therapeutic Activities, Therapeutic Exercises Modalities Cold Pack/Ice Massage,Electric Stimulation,Hot Packs Next Visit Focus/Plan Next Note Type Treatment Note Next Visit Plan plan to work towards independent HEP for DC
--- NOTE | 2021-05-06 10:02 | PT.OPPOC ---
Physical, Occupational & Speech Therapy At [facility] Current Diagnoses Other chronic pain (05/06/21) Low back pain (05/06/21) Muscle weakness (generalized) (05/06/21) Difficulty in walking, not elsewhere classified (05/06/21) Unsteadiness on feet (05/06/21) Abnormal posture (05/06/21) Visit Care Team Role Provider Type Sourav Gamboa MD Attending Provider Non-Staff Family Provider Primary Care Provider Referring Provider Specialty: Medical Address: [address] [place] [address], [id number] Email: Plan Of Care PT-OP-T Assessment and Plan Start: 11/27/20 13:42 Freq: Status: Active Protocol: Document 05/06/21 09:05 [facility] (Rec: 05/06/21 10:02 [facility] [id number]) Physical Therapy Assessment Goals activities Short Term Goal (STG) Pt will be able to go up and down a curb and stairs w/o LOB w/o UE support. 01/07-pt reports improved STG Duration achieved but pt feels off balance Straightening Press Operator Goal (LTG) Pt will be able to go for 1 mile walks with no more than 4 /10 pain. 03/02- still gradually progressing stopping d/t LBP after about 1/4 mile w/5/10 pain 05/06-pt walked for about 1 hr for a tour 04/08-stops about 1/2 mile LTG Duration achieved to do about 1 mile/ hour w/tour w/o pain balance Short Term Goal (STG) Pt will be able to do SLS 10 sec B 01/07-L 15 sec, R 2 sec 02/09->30 sec L, R 13 sec STG Duration achieved Straightening Press Operator Goal (LTG) Pt will be able to score at least 25/30 on FGA to show improved balance and low risk for falls. 03/02-improved LTG Duration achieved 04/08 strength Short Term Goal (STG) Pt will be indep w/ HEP STG Duration achieved progressing as able Penitentiary Goal (LTG) Pt will score at least 1 full MMT grade higher on all LE MMT in order to improve pt joint stability and dec pain and improve strength to improve pt 's ease w/activities. 01/07-improved 03/02-improving LTG Duration 06/03/21 sit to stand Short Term Goal (STG) Pt will improve 5x sit to stand test to no greater than 15 sec (norm 12 sec) to show improved functional ability. 01/07-1 sec improvement STG Duration achieved Penitentiary Goal (LTG) Pt will improve 30 sec sit to stand score to 12x to show improved balance and LE strength 03/02-improved to 10 LTG Duration achieved to 13x 04/08 6 min walk Short Term Goal (STG) Pt will be able to complete 6 min walk test without requring a rest break STG Duration achieved Penitentiary Goal (LTG) Pt waill be able to walk 1171ft with no more than 2/10 pain after to show more age related norms for functional abiltiy in gait. 01/07-improved to 1070ft 02/09-1035ft 10 pain 03/02-1138ft 06/21 LTG Duration achieved 1226ft w/2/10 pain Assessment Summary Assessment pt still does need some cueing w/his exercises at this time. He has progressed signficiantly though and is showing dec pain w/inc activity. He still shows weakness and does require cues for HEP. Plan for seeing pt for a few more visits to set w /HEP then DC to indep HEP. Physical Therapy Plan Frequency and Duration Frequency of Treatment 2x/Week Duration of Treatment 1 month Plan of Care Start Date 05/06/21 Plan of Care End Date 06/03/21 Therapeutic Interventions Therapeutic Interventions Aquatic Therapy,Balance Training,Gait Training,Home Exercise Program,Joint Mobilizations,Manual Therapy, Neuromuscular Re-education, Patient/Caregiver Education, Self-Care/Home Management,Soft Tissue Mobilization,Taping, Therapeutic Activities, Therapeutic Exercises Modalities Cold Pack/Ice Massage,Electric Stimulation,Hot Packs Next Visit Focus/Plan Next Note Type Treatment Note Next Visit Plan plan to work towards independent HEP for DC Plan of Care Dates Plan of Care Start Date 05/06/21 Plan of Care End Date 06/03/21 Electronically Signed by: Denia Low, PT 05/06/21 1002 Please Sign and Return: I have reviewed this Plan of Care and certify that the skilled therapy services above are required to meet the patient?s needs. Physician Signature Date Printed Name and Credentials Clinical Instructor Signature Printed Name and Credentials
--- NOTE | 2021-05-08 14:29 | PT.OTN ---
Current Diagnoses Other chronic pain (05/06/21) Low back pain (05/06/21) Muscle weakness (generalized) (05/06/21) Difficulty in walking, not elsewhere classified (05/06/21) Unsteadiness on feet (05/06/21) Abnormal posture (05/06/21) Physical Therapy Treatment Note PT-OP-A Visit Information Start: 11/27/20 13:42 Freq: Status: Active Protocol: Document 05/08/21 14:18 LJ (Rec: 05/08/21 14:29 LJ [id number]) Out-Patient Physical Therapy Visit Information Visit Information Visit Type Aquatic Treatment Note Visit Start Time 11:00 Visit Stop Time 11:45 Total Visit Minutes 45 Visit Number 22 Number of AUTO MECHANICS INSTRUCTOR Visits 1 PT-OP-B Current Condition Start: 11/27/20 13:42 Freq: Status: Active Protocol: Document 12/01/20 14:05 [facility] (Rec: 12/01/20 15:18 [facility] [id number]) Current Condition History of Current Condition Onset Date worse over the past year Current Complaints balance, gait History of Current Condition Pt reports increasing difficulty with walking over uneven surfaces and has trouble w/stairs and curbs. In random intervals, R and LLE feels like they may give out ( mostly knee giving out sensation). Pt reports B foot pain that is gout like. pt reprots knees hurt at night with occasionally that discomfort being enough to wake him. Pt reports over the past year, inc difficulty with getting out of stair and feeling imbalance when first getting up. Pt reports LB is stiff and he is discouraged because he is trying to do his regular old PT exercises and trying tto walk but it hurts like hell to his legs, hips, knees, feet. He does stretches including bending over. He feels like his walk is a jarring walk and cannot walk on uneven ground. He has to hold a railing when stepping down and feels really uncertain. Pt reports he has been in pain since he was 22 years old. he does not want palliative care. Pt feels like he is occ feeling anticipatory pain and thinks he may have to talk to a psychiatrist. Pt got an electric bike with a low step through and he is scared to get on it. Pt reports he also can't get off the ground w/o pulling up on something. Pt can't get his leg up underneath himself and cannot lift his leg. Prior Treatments and Tests PT in past Treatment Goals Patient/Caregiver Goals Be able to walk distances & be able to walk a trail, be more confident about balance, have an analysis of gaito understand dysfunction, be able to go up/down stairs w/o feeling unstable Personal Factors Other Personal Factors That May Effect B TSA, R TKA, mult hand Therapy/Recovery surgeries, drainage of R hallux & removal of gout crystals, T11-12, L2-3, 3-4, 4 -5 lami and L4-5 fusion PT-OP-C Subjective Start: 11/27/20 13:42 Freq: Status: Active Protocol: Document 05/08/21 14:18 LJ (Rec: 05/08/21 14:29 LJ [id number]) OP-PT Subjective Patient Comments Patient Comments Pt brought aquatic HEP to pool this session to review in anticipation of doing the exercises on his own PT-OP-D Balance Start: 11/27/20 13:42 Freq: Status: Active Protocol: Document 12/01/20 14:05 [facility] (Rec: 12/01/20 15:18 [facility] [id number]) Balance Tests Single Limb Standing Single Limb- Right 2sec w./lat lean & UEs uses Single Limb- Left 5 sec w./lat lean & UEs uses PT-OP-E Functional Tests Start: 11/27/20 13:42 Freq: Status: Active Protocol: Document 05/06/21 09:05 [facility] (Rec: 05/06/21 10:02 [facility] [id number]) Functional Tests 6 Minute Walk Test Distance 1226ft PT-OP-G Mobility & Gait Start: 11/27/20 13:42 Freq: Status: Active Protocol: Document 12/01/20 14:05 [facility] (Rec: 12/01/20 15:18 [facility] [id number]) OP Mobility Evaluation Bed Mobility Rolling able to roll Supine to and from Sit required assist to sit up Transfers Sit to Stand slow and very slow to start moving OP Gait Assessment Comments Gait Comments lat lean w/WB R>L PT-OP-J Posture/Palpation/Skin Start: 11/27/20 13:42 Freq: Status: Active Protocol: Document 12/01/20 14:05 [facility] (Rec: 12/01/20 15:18 [facility] [id number]) Posture Evaluation Comments Posture Comments fwd flex posture PT-OP-M Strength Start: 11/27/20 13:42 Freq: Status: Active Protocol: Document 05/06/21 09:05 [facility] (Rec: 05/06/21 10:02 [facility] [id number]) Hip Strength Hip Manual Muscle Testing Right Flexion (L2) 4- Good- Extension (S1) 3+ Fair+ Abduction 3+ Fair+ External Rotation 4+ Good+ Internal Rotation 5 Normal Left Flexion (L2) 4 Good Extension (S1) 3+ Fair+ Abduction 3+ Fair+ External Rotation 5 Normal Internal Rotation 5 Normal Knee Strength Knee Manual Muscle Testing Right Flexion (S2) 5 Normal Extension (L3) 5 Normal Left Flexion (S2) 5 Normal Extension (L3) 5 Normal Ankle/Foot Strength Ankle and Foot Manual Muscle Testing Right Dorsiflexion (L4) 5 Normal Plantarflexion (S1) 5 Normal Left Dorsiflexion (L4) 5 Normal Plantarflexion (S1) 5 Normal Comments PF tested seated PT-OP-Q Treatments Start: 11/27/20 13:42 Freq: Status: Active Protocol: Document 05/06/21 09:05 [facility] (Rec: 05/06/21 10:02 [facility] [id number]) Gym Equipment Shuttle Balance red clips Details fwd & side Reps/Duration w/PT pertubations Comments fwd: WBOS & NBOS , staggered stance side: WBOS & NBOS Therapeutic Exercises Prone Exercises hip ext Side bilateral Reps/Minutes 10 Sidelying Exercises hip abd Sidelying Exercise Name cues for no rolling back Side bilateral Reps/Minutes 15 Standing Exercises hip abd Side bilateral Equipment Used lvl 2 Reps/Minutes 15 Comments cues for upright position hip ext Side bilateral Equipment Used lvl 2 Reps/Minutes 15 Comments cues for upright position squat Standing Exercise Name 1. squat Side bilateral Equipment Used counter in front prn Reps/Minutes 12 Comments cues for buttocks back w/sit back & glute control fro stand up PT-OP-S Aquatic Treatment Start: 01/14/21 14:10 Freq: Status: Active Protocol: Document 05/08/21 14:18 LJ (Rec: 05/08/21 14:29 LJ [id number]) Aquatics Treatment Pool Entry/Exit Pool Entry/Exit Method Stairs Assistance Independent Water Walking Tandem Gait Water Level Chest Level Walking Equipment Ankle Floats Level of Assistance Standby Assistance,Verbal Cues Comments fwd/bkw Lunge Walk Water Level Waist Level Walking Equipment Ankle Floats Level of Assistance Standby Assistance,Verbal Cues circumduction f/b Water Level Chest Level Walking Equipment Ankle Floats Level of Assistance Standby Assistance,Verbal Cues fwd, bck, side, may, kick Water Level Chest Level Walking Equipment Ankle Floats Level of Assistance Standby Assistance,Verbal Cues Lower Extremity Exercises kick back Details alternating LEs; tapping wall w/toes 4 way hip Details hh on wall Body Position Standing Water Level Waist Level Equipment Ankle Weight- 5.0# Reps/Duration 2 x 10 B hamstring curl Reps/Duration 10x Comments no UE support LE stretches Details ITB, groin, quad Body Position Standing Water Level Chest Level Equipment noodle Comments standing at wall Lower Extremity Stretches gastroc, soleus Reps/Duration 30 x 2 B free the hip Body Position Standing Water Level Waist Level HS, Hip flexors Details at wall Body Position Standing Reps/Duration 30 x2 B Spinal Exercises rotations at wall Body Position Sitting Water Level Neck Level Reps/Duration 15 Comments core stabilization noodle pull down at wall Body Position Standing Equipment lg BBs Reps/Duration 15 Comments fwd, B side for blique activation Balance wonder board Reps/Duration 3 min SLS Reps/Duration 30 ea L Comments include 12 SL squats B PT-OP-T Assessment and Plan Start: 11/27/20 13:42 Freq: Status: Active Protocol: Document 05/08/21 14:18 STACIE (Rec: 05/08/21 14:29 [id number]) Physical Therapy Assessment Rehab Potential Rehabilitation Potential Good Evaluation Complexity Number of Personal Factors/Comorbidities 3 or More Number of Body Systems Impaired 4 or More Clinical Presentation at Evaluation Evolving Impairments Impairments Activity Tolerance,Balance, Functional Activities, Functional Mobility,Gait,Pain, Posture,ROM,Soft Tissue Mobility,Strength,Transfers Goals activities Short Term Goal (STG) Pt will be able to go up and down a curb and stairs w/o LOB w/o UE support. 01/07-pt reports improved STG Duration achieved but pt feels off balance Mainframe Programmer Goal (LTG) Pt will be able to go for 1 mile walks with no more than 4 /10 pain. 03/02- still gradually progressing stopping d/t LBP after about 1/4 mile w/5/10 pain 05/06-pt walked for about 1 hr for a tour 04/08-stops about 1/2 mile LTG Duration achieved to do about 1 mile/ hour w/tour w/o pain balance Short Term Goal (STG) Pt will be able to do SLS 10 sec B 01/07-L 15 sec, R 2 sec 02/09->30 sec L, R 13 sec STG Duration achieved Mcfp Goal (LTG) Pt will be able to score at least 25/30 on FGA to show improved balance and low risk for falls. 03/02-improved LTG Duration achieved 04/08 strength Short Term Goal (STG) Pt will be indep w/ HEP STG Duration achieved progressing as able Mainframe Programmer Goal (LTG) Pt will score at least 1 full MMT grade higher on all LE MMT in order to improve pt joint stability and dec pain and improve strength to improve pt 's ease w/activities. 01/07-improved 03/02-improving LTG Duration 06/03/21 sit to stand Short Term Goal (STG) Pt will improve 5x sit to stand test to no greater than 15 sec (norm 12 sec) to show improved functional ability. 01/07-1 sec improvement STG Duration achieved Mcfp Goal (LTG) Pt will improve 30 sec sit to stand score to 12x to show improved balance and LE strength 03/02-improved to 10 LTG Duration achieved to 13x 04/08 6 min walk Short Term Goal (STG) Pt will be able to complete 6 min walk test without requring a rest break STG Duration achieved Mcfp Goal (LTG) Pt waill be able to walk 1171ft with no more than 2/10 pain after to show more age related norms for functional abiltiy in gait. 01/07-improved to 1070ft 02/09-1035ft 06/21 pain 03/02-1138ft 06/21 LTG Duration achieved 1226ft w/2/10 pain Assessment Summary Assessment Pt reviewed all shallow water exercises that he will be doing with HEP. The deep end of the pool was crowded therefore pt did not want to do exercises in deep. Will review on next visit. Physical Therapy Plan Frequency and Duration Frequency of Treatment 2x/Week Duration of Treatment 1 month Plan of Care Start Date 05/06/21 Plan of Care End Date 06/03/21 Therapeutic Interventions Therapeutic Interventions Aquatic Therapy,Balance Training,Gait Training,Home Exercise Program,Joint Mobilizations,Manual Therapy, Neuromuscular Re-education, Patient/Caregiver Education, Self-Care/Home Management,Soft Tissue Mobilization,Taping, Therapeutic Activities, Therapeutic Exercises Modalities Cold Pack/Ice Massage,Electric Stimulation,Hot Packs Next Visit Focus/Plan Next Note Type Treatment Note Next Visit Plan Repeat review of aquatic HEP including deep water ones.
--- NOTE | 2021-05-11 15:09 | PT.OTN ---
Current Diagnoses Other chronic pain (05/11/21) Low back pain (05/11/21) Muscle weakness (generalized) (05/11/21) Difficulty in walking, not elsewhere classified (05/11/21) Unsteadiness on feet (05/11/21) Abnormal posture (05/11/21) Physical Therapy Treatment Note PT-OP-A Visit Information Start: 11/27/20 13:42 Freq: Status: Active Protocol: Document 05/11/21 15:05 [facility] (Rec: 05/11/21 15:09 [facility] [id number]) Out-Patient Physical Therapy Visit Information Visit Information Visit Type Aquatic Treatment Note Visit Start Time 11:45 Visit Stop Time 12:30 Total Visit Minutes 45 Visit Number 23 Number of AOC AADC OPERATIONS STAFF OFFICER Visits 0 PT-OP-B Current Condition Start: 11/27/20 13:42 Freq: Status: Active Protocol: Document 12/01/20 14:05 [facility] (Rec: 12/01/20 15:18 [facility] [id number]) Current Condition History of Current Condition Onset Date worse over the past year Current Complaints balance, gait History of Current Condition Pt reports increasing difficulty with walking over uneven surfaces and has trouble w/stairs and curbs. In random intervals, R and LLE feels like they may give out ( mostly knee giving out sensation). Pt reports B foot pain that is gout like. pt reprots knees hurt at night with occasionally that discomfort being enough to wake him. Pt reports over the past year, inc difficulty with getting out of stair and feeling imbalance when first getting up. Pt reports LB is stiff and he is discouraged because he is trying to do his regular old PT exercises and trying tto walk but it hurts like hell to his legs, hips, knees, feet. He does stretches including bending over. He feels like his walk is a jarring walk and cannot walk on uneven ground. He has to hold a railing when stepping down and feels really uncertain. Pt reports he has been in pain since he was 22 years old. he does not want palliative care. Pt feels like he is occ feeling anticipatory pain and thinks he may have to talk to a psychiatrist. Pt got an electric bike with a low step through and he is scared to get on it. Pt reports he also can't get off the ground w/o pulling up on something. Pt can't get his leg up underneath himself and cannot lift his leg. Prior Treatments and Tests PT in past Treatment Goals Patient/Caregiver Goals Be able to walk distances & be able to walk a trail, be more confident about balance, have an analysis of gaito understand dysfunction, be able to go up/down stairs w/o feeling unstable Personal Factors Other Personal Factors That May Effect B TSA, R TKA, mult hand Therapy/Recovery surgeries, drainage of R hallux & removal of gout crystals, T11-12, L2-3, 3-4, 4 -5 lami and L4-5 fusion PT-OP-C Subjective Start: 11/27/20 13:42 Freq: Status: Active Protocol: Document 05/11/21 15:05 [facility] (Rec: 05/11/21 15:09 [facility] [id number]) OP-PT Subjective Patient Comments Patient Comments No new c/o. Patient had skin cancer burned off head so no swimming today. PT-OP-D Balance Start: 11/27/20 13:42 Freq: Status: Active Protocol: Document 12/01/20 14:05 [facility] (Rec: 12/01/20 15:18 [facility] [id number]) Balance Tests Single Limb Standing Single Limb- Right 2sec w./lat lean & UEs uses Single Limb- Left 5 sec w./lat lean & UEs uses PT-OP-E Functional Tests Start: 11/27/20 13:42 Freq: Status: Active Protocol: Document 05/06/21 09:05 [facility] (Rec: 05/06/21 10:02 [facility] [id number]) Functional Tests 6 Minute Walk Test Distance 1226ft PT-OP-G Mobility & Gait Start: 11/27/20 13:42 Freq: Status: Active Protocol: Document 12/01/20 14:05 [facility] (Rec: 12/01/20 15:18 [facility] [id number]) OP Mobility Evaluation Bed Mobility Rolling able to roll Supine to and from Sit required assist to sit up Transfers Sit to Stand slow and very slow to start moving OP Gait Assessment Comments Gait Comments lat lean w/WB R>L PT-OP-J Posture/Palpation/Skin Start: 11/27/20 13:42 Freq: Status: Active Protocol: Document 12/01/20 14:05 [facility] (Rec: 12/01/20 15:18 [facility] [id number]) Posture Evaluation Comments Posture Comments fwd flex posture PT-OP-M Strength Start: 11/27/20 13:42 Freq: Status: Active Protocol: Document 05/06/21 09:05 [facility] (Rec: 05/06/21 10:02 [facility] [id number]) Hip Strength Hip Manual Muscle Testing Right Flexion (L2) 4- Good- Extension (S1) 3+ Fair+ Abduction 3+ Fair+ External Rotation 4+ Good+ Internal Rotation 5 Normal Left Flexion (L2) 4 Good Extension (S1) 3+ Fair+ Abduction 3+ Fair+ External Rotation 5 Normal Internal Rotation 5 Normal Knee Strength Knee Manual Muscle Testing Right Flexion (S2) 5 Normal Extension (L3) 5 Normal Left Flexion (S2) 5 Normal Extension (L3) 5 Normal Ankle/Foot Strength Ankle and Foot Manual Muscle Testing Right Dorsiflexion (L4) 5 Normal Plantarflexion (S1) 5 Normal Left Dorsiflexion (L4) 5 Normal Plantarflexion (S1) 5 Normal Comments PF tested seated PT-OP-Q Treatments Start: 11/27/20 13:42 Freq: Status: Active Protocol: Document 05/06/21 09:05 [facility] (Rec: 05/06/21 10:02 [facility] [id number]) Gym Equipment Shuttle Balance red clips Details fwd & side Reps/Duration w/PT pertubations Comments fwd: WBOS & NBOS , staggered stance side: WBOS & NBOS Therapeutic Exercises Prone Exercises hip ext Side bilateral Reps/Minutes 10 Sidelying Exercises hip abd Sidelying Exercise Name cues for no rolling back Side bilateral Reps/Minutes 15 Standing Exercises hip abd Side bilateral Equipment Used lvl 2 Reps/Minutes 15 Comments cues for upright position hip ext Side bilateral Equipment Used lvl 2 Reps/Minutes 15 Comments cues for upright position squat Standing Exercise Name 1. squat Side bilateral Equipment Used counter in front prn Reps/Minutes 12 Comments cues for buttocks back w/sit back & glute control fro stand up PT-OP-S Aquatic Treatment Start: 01/14/21 14:10 Freq: Status: Active Protocol: Document 05/11/21 15:05 [facility] (Rec: 05/11/21 15:09 [facility] [id number]) Aquatics Treatment Pool Entry/Exit Pool Entry/Exit Method Stairs Assistance Independent Water Walking Tandem Gait Water Level Chest Level Walking Equipment Ankle Floats Level of Assistance Standby Assistance,Verbal Cues Comments fwd/bkw Lunge Walk Water Level Waist Level Walking Equipment Ankle Floats Level of Assistance Standby Assistance,Verbal Cues circumduction f/b Water Level Chest Level Walking Equipment Ankle Floats Level of Assistance Standby Assistance,Verbal Cues step up/down Water Level Chest Level Walking Equipment 8 box Level of Assistance Standby Assistance,Verbal Cues Comments all directions, 4# ankle weights fwd, bck, , may, may kick Water Level Chest Level Walking Equipment Ankle Floats Level of Assistance Standby Assistance,Verbal Cues Lower Extremity Exercises kick back Details alternating LEs; tapping wall w/toes 4 way hip Details hh on wall Body Position Standing Water Level Waist Level Equipment Ankle Floats Reps/Duration 2 x 10 B Lower Extremity Stretches HS, Hip flexors Details at wall Body Position Standing Reps/Duration 30 x2 B Balance SLS Reps/Duration 30 ea L Comments include 12 SL squats B PT-OP-T Assessment and Plan Start: 11/27/20 13:42 Freq: Status: Active Protocol: Document 05/11/21 15:05 [facility] (Rec: 05/11/21 15:09 [facility] [id number]) Physical Therapy Assessment Rehab Potential Rehabilitation Potential Good Evaluation Complexity Number of Personal Factors/Comorbidities 3 or More Number of Body Systems Impaired 4 or More Clinical Presentation at Evaluation Evolving Impairments Impairments Activity Tolerance,Balance, Functional Activities, Functional Mobility,Gait,Pain, Posture,ROM,Soft Tissue Mobility,Strength,Transfers Goals activities Short Term Goal (STG) Pt will be able to go up and down a curb and stairs w/o LOB w/o UE support. 01/07-pt reports improved STG Duration achieved but pt feels off balance Wheel Installer Goal (LTG) Pt will be able to go for 1 mile walks with no more than 4 /10 pain. 03/02- still gradually progressing stopping d/t LBP after about 1/4 mile w/5/10 pain 05/06-pt walked for about 1 hr for a tour 04/08-stops about 1/2 mile LTG Duration achieved to do about 1 mile/ hour w/tour w/o pain balance Short Term Goal (STG) Pt will be able to do SLS 10 sec B 01/07-L 15 sec, R 2 sec 02/09->30 sec L, R 13 sec STG Duration achieved Skilled Nursing Goal (LTG) Pt will be able to score at least 25/30 on FGA to show improved balance and low risk for falls. 03/02-improved LTG Duration achieved 04/08 strength Short Term Goal (STG) Pt will be indep w/ HEP STG Duration achieved progressing as able Wheel Installer Goal (LTG) Pt will score at least 1 full MMT grade higher on all LE MMT in order to improve pt joint stability and dec pain and improve strength to improve pt 's ease w/activities. 01/07-improved 03/02-improving LTG Duration 06/03/21 sit to stand Short Term Goal (STG) Pt will improve 5x sit to stand test to no greater than 15 sec (norm 12 sec) to show improved functional ability. 01/07-1 sec improvement STG Duration achieved Skilled Nursing Goal (LTG) Pt will improve 30 sec sit to stand score to 12x to show improved balance and LE strength 03/02-improved to 10 LTG Duration achieved to 13x 04/08 6 min walk Short Term Goal (STG) Pt will be able to complete 6 min walk test without requring a rest break STG Duration achieved Skilled Nursing Goal (LTG) Pt waill be able to walk 1171ft with no more than 2/10 pain after to show more age related norms for functional abiltiy in gait. 01/07-improved to 1070ft 02/09-1035ft 4/10 pain 03/02-1138ft 410 LTG Duration achieved 1226ft w/2/10 pain Assessment Summary Assessment Patient independent with aquatic exercise program, he was encouraged to continue with aquatic exercise independently. Has exercise handouts. Has hard time with self-motivation for activity, recommend counseling. Physical Therapy Plan Frequency and Duration Frequency of Treatment 2x/Week Duration of Treatment 1 month Plan of Care Start Date 05/06/21 Plan of Care End Date 06/03/21 Therapeutic Interventions Therapeutic Interventions Aquatic Therapy,Balance Training,Gait Training,Home Exercise Program,Joint Mobilizations,Manual Therapy, Neuromuscular Re-education, Patient/Caregiver Education, Self-Care/Home Management,Soft Tissue Mobilization,Taping, Therapeutic Activities, Therapeutic Exercises Modalities Cold Pack/Ice Massage,Electric Stimulation,Hot Packs Next Visit Focus/Plan Next Note Type Treatment Note Next Visit Plan Continue land-based PT per POC working toward independent HEP for D/C.
--- NOTE | 2021-05-13 10:15 | PT.OTN ---
Current Diagnoses Other chronic pain (05/13/21) Low back pain (05/13/21) Muscle weakness (generalized) (05/13/21) Difficulty in walking, not elsewhere classified (05/13/21) Unsteadiness on feet (05/13/21) Abnormal posture (05/13/21) Physical Therapy Treatment Note PT-OP-A Visit Information Start: 11/27/20 13:42 Freq: Status: Active Protocol: Document 05/13/21 09:03 [facility] (Rec: 05/13/21 10:15 [facility] [id number]) Out-Patient Physical Therapy Visit Information Visit Information Visit Type Discharge Summary Visit Start Time 09:06 Visit Stop Time 09:45 Total Visit Minutes 39 Visit Number 24 Number of ORGAN ASSEMBLER Visits 0 PT-OP-B Current Condition Start: 11/27/20 13:42 Freq: Status: Active Protocol: Document 12/01/20 14:05 [facility] (Rec: 12/01/20 15:18 [facility] [id number]) Current Condition History of Current Condition Onset Date worse over the past year Current Complaints balance, gait History of Current Condition Pt reports increasing difficulty with walking over uneven surfaces and has trouble w/stairs and curbs. In random intervals, R and LLE feels like they may give out ( mostly knee giving out sensation). Pt reports B foot pain that is gout like. pt reprots knees hurt at night with occasionally that discomfort being enough to wake him. Pt reports over the past year, inc difficulty with getting out of stair and feeling imbalance when first getting up. Pt reports LB is stiff and he is discouraged because he is trying to do his regular old PT exercises and trying tto walk but it hurts like hell to his legs, hips, knees, feet. He does stretches including bending over. He feels like his walk is a jarring walk and cannot walk on uneven ground. He has to hold a railing when stepping down and feels really uncertain. Pt reports he has been in pain since he was 22 years old. he does not want palliative care. Pt feels like he is occ feeling anticipatory pain and thinks he may have to talk to a psychiatrist. Pt got an electric bike with a low step through and he is scared to get on it. Pt reports he also can't get off the ground w/o pulling up on something. Pt can't get his leg up underneath himself and cannot lift his leg. Prior Treatments and Tests PT in past Treatment Goals Patient/Caregiver Goals Be able to walk distances & be able to walk a trail, be more confident about balance, have an analysis of gaito understand dysfunction, be able to go up/down stairs w/o feeling unstable Personal Factors Other Personal Factors That May Effect B TSA, R TKA, mult hand Therapy/Recovery surgeries, drainage of R hallux & removal of gout crystals, T11-12, L2-3, 3-4, 4 -5 lami and L4-5 fusion PT-OP-C Subjective Start: 11/27/20 13:42 Freq: Status: Active Protocol: Document 05/13/21 09:03 [facility] (Rec: 05/13/21 10:15 [facility] [id number]) OP-PT Subjective Patient Comments Patient Comments Pt reports no questions for PT PT-OP-D Balance Start: 11/27/20 13:42 Freq: Status: Active Protocol: Document 12/01/20 14:05 [facility] (Rec: 12/01/20 15:18 [facility] [id number]) Balance Tests Single Limb Standing Single Limb- Right 2sec w./lat lean & UEs uses Single Limb- Left 5 sec w./lat lean & UEs uses PT-OP-E Functional Tests Start: 11/27/20 13:42 Freq: Status: Active Protocol: Document 05/06/21 09:05 [facility] (Rec: 05/06/21 10:02 [facility] [id number]) Functional Tests 6 Minute Walk Test Distance 1226ft PT-OP-G Mobility & Gait Start: 11/27/20 13:42 Freq: Status: Active Protocol: Document 12/01/20 14:05 [facility] (Rec: 12/01/20 15:18 [facility] [id number]) OP Mobility Evaluation Bed Mobility Rolling able to roll Supine to and from Sit required assist to sit up Transfers Sit to Stand slow and very slow to start moving OP Gait Assessment Comments Gait Comments lat lean w/WB R>L PT-OP-J Posture/Palpation/Skin Start: 11/27/20 13:42 Freq: Status: Active Protocol: Document 12/01/20 14:05 [facility] (Rec: 12/01/20 15:18 [facility] [id number]) Posture Evaluation Comments Posture Comments fwd flex posture PT-OP-M Strength Start: 11/27/20 13:42 Freq: Status: Active Protocol: Document 05/06/21 09:05 [facility] (Rec: 05/06/21 10:02 [facility] [id number]) Hip Strength Hip Manual Muscle Testing Right Flexion (L2) 4- Good- Extension (S1) 3+ Fair+ Abduction 3+ Fair+ External Rotation 4+ Good+ Internal Rotation 5 Normal Left Flexion (L2) 4 Good Extension (S1) 3+ Fair+ Abduction 3+ Fair+ External Rotation 5 Normal Internal Rotation 5 Normal Knee Strength Knee Manual Muscle Testing Right Flexion (S2) 5 Normal Extension (L3) 5 Normal Left Flexion (S2) 5 Normal Extension (L3) 5 Normal Ankle/Foot Strength Ankle and Foot Manual Muscle Testing Right Dorsiflexion (L4) 5 Normal Plantarflexion (S1) 5 Normal Left Dorsiflexion (L4) 5 Normal Plantarflexion (S1) 5 Normal Comments PF tested seated PT-OP-Q Treatments Start: 11/27/20 13:42 Freq: Status: Active Protocol: Document 05/13/21 09:03 [facility] (Rec: 05/13/21 10:15 [facility] [id number]) Gym Equipment Shuttle Balance red clips Details fwd & side Reps/Duration w/PT pertubations Comments fwd: WBOS & NBOS , staggered stance side: WBOS & NBOS Therapeutic Ball seated Exercise Details rail prn Ball Size/Color 75cm Body Position Sitting Comments marches x12 B kicks x8 B Therapeutic Exercises Standing Exercises hip abd Side bilateral Equipment Used lvl 2 Reps/Minutes 20 Comments cues for upright position hip ext Side bilateral Equipment Used lvl 2 Reps/Minutes 20 Comments cues for upright position squat Standing Exercise Name 1. squat Side bilateral Equipment Used counter in front prn & chair behind Reps/Minutes 20 Comments cues for buttocks back w/sit back & glute control fro stand up Neuro Re-Education Treatment Balance Activities foam pad Details side step ups B over foam pad on 4 in step Reps/Duration 12 ea SLS Comments 1.fwd toe taps onto 12 in step x12 B 2. side toe taps onto 8 in step x10 B bosu Comments step up x10 B w/balance at time rail as little as possible PT-OP-S Aquatic Treatment Start: 01/14/21 14:10 Freq: Status: Active Protocol: Document 05/11/21 15:05 [facility] (Rec: 05/11/21 15:09 [facility] [id number]) Aquatics Treatment Pool Entry/Exit Pool Entry/Exit Method Stairs Assistance Independent Water Walking Tandem Gait Water Level Chest Level Walking Equipment Ankle Floats Level of Assistance Standby Assistance,Verbal Cues Comments fwd/bkw Lunge Walk Water Level Waist Level Walking Equipment Ankle Floats Level of Assistance Standby Assistance,Verbal Cues circumduction f/b Water Level Chest Level Walking Equipment Ankle Floats Level of Assistance Standby Assistance,Verbal Cues step up/down Water Level Chest Level Walking Equipment 8 box Level of Assistance Standby Assistance,Verbal Cues Comments all directions, 4# ankle weights fwd, bck, , may, kick Water Level Chest Level Walking Equipment Ankle Floats Level of Assistance Standby Assistance,Verbal Cues Lower Extremity Exercises kick back Details alternating LEs; tapping wall w/toes 4 way hip Details hh on wall Body Position Standing Water Level Waist Level Equipment Ankle Floats Reps/Duration 2 x 10 B Lower Extremity Stretches HS, Hip flexors Details at wall Body Position Standing Reps/Duration 30 x2 B Balance SLS Reps/Duration 30 ea L Comments include 12 SL squats B PT-OP-T Assessment and Plan Start: 11/27/20 13:42 Freq: Status: Active Protocol: Document 05/13/21 09:03 [facility] (Rec: 05/13/21 10:15 [facility] [id number]) Physical Therapy Assessment Goals activities Short Term Goal (STG) Pt will be able to go up and down a curb and stairs w/o LOB w/o UE support. 01/07-pt reports improved STG Duration achieved but pt feels off balance Jail Goal (LTG) Pt will be able to go for 1 mile walks with no more than 4 /10 pain. 03/02- still gradually progressing stopping d/t LBP after about 1/4 mile w/5/10 pain 05/06-pt walked for about 1 hr for a tour 04/08-stops about 1/2 mile LTG Duration achieved to do about 1 mile/ hour w/tour w/o pain balance Short Term Goal (STG) Pt will be able to do SLS 10 sec B 01/07-L 15 sec, R 2 sec 11/29->30 sec L, R 13 sec STG Duration achieved Desktop Operator Goal (LTG) Pt will be able to score at least 25/30 on FGA to show improved balance and low risk for falls. 03/02-improved LTG Duration achieved 04/08 strength Short Term Goal (STG) Pt will be indep w/ HEP STG Duration achieved progressing as able Desktop Operator Goal (LTG) Pt will score at least 1 full MMT grade higher on all LE MMT in order to improve pt joint stability and dec pain and improve strength to improve pt 's ease w/activities. 01/07-improved 03/02-improving LTG Duration progressed to cont w/HEP sit to stand Short Term Goal (STG) Pt will improve 5x sit to stand test to no greater than 15 sec (norm 12 sec) to show improved functional ability. 01/07-1 sec improvement STG Duration achieved Desktop Operator Goal (LTG) Pt will improve 30 sec sit to stand score to 12x to show improved balance and LE strength 03/02-improved to 10 LTG Duration achieved to 13x 04/08 6 min walk Short Term Goal (STG) Pt will be able to complete 6 min walk test without requring a rest break STG Duration achieved Jail Goal (LTG) Pt waill be able to walk 1171ft with no more than 2/10 pain after to show more age related norms for functional abiltiy in gait. 01/07-improved to 1070ft 02/09-1035ft 4/10 pain 03/02-1138ft 4 LTG Duration achieved 1226ft w/2/10 pain Assessment Summary Assessment pt did well with min cues for exercises. He has made excellent progress w/PT and is ready for DC to home program. He is instructed to continue to walk, do HEP, workouts in pool and recumbant bike and alternate through the activities to cont to maintain strength, balance and functional ability. Physical Therapy Plan Discharge Physical Therapy Discharge Reasons Goals Met
== END 2021-05-18 09:58 ==
LOC: PHYS 09:00
PROVIDERS: Family Provider Family Medicine; PCP Family Medicine; Referring Provider Family Medicine; Visit Provider Family Medicine
DX: R26.81 Unsteadiness on feet (principal); M62.81 Muscle weakness (generalized); R29.3 Abnormal posture; R26.2 Difficulty in walking, not elsewhere classified; G89.29 Other chronic pain
CPT/HCPCS: 97110; 97112; 97113; 97116; 97140; 97162; 97535

== ENCOUNTER → 2021-07-02 10:41 | Outpatient (CLI) | payer MEDICARE, BC, SELFPAY | PROVIDERS: Family Provider Family Medicine; PCP Family Medicine; Visit Provider Urology | DX: R30.0 Dysuria (principal); N40.1 Benign prostatic hyperplasia with lower urinary tract symptoms; N13.8 Other obstructive and reflux uropathy; Z87.438 Personal history of other diseases of male genital organs | CPT/HCPCS: 51798; 81002; 87077; 87086; 87186; 99214 ==

== ENCOUNTER → 2021-07-08 10:21 | Outpatient (CLI) | payer MEDICARE, BC, SELFPAY ==
[2021-07-08 12:05] LABS: Prostate Specific Antigen Scrn 2.56 ng/mL (0.1-4.0)
== END ==
PROVIDERS: Family Provider Family Medicine; PCP Family Medicine; Referring Provider Urology; Visit Provider Urology
DX: Z12.5 Encounter for screening for malignant neoplasm of prostate (principal)
CPT/HCPCS: 36415; G0103

== ENCOUNTER → 2021-10-30 09:10 | Outpatient (CLI) | payer MEDICARE, BC, SELFPAY ==
[2021-10-30 11:28] LABS: COVID19 -Nasal RAPID Negative (Negative)
== END ==
PROVIDERS: Family Provider Family Medicine; PCP Family Medicine; Visit Provider Surgery
DX: Z20.822 Contact with and (suspected) exposure to COVID-19 (principal); Z01.812 Encounter for preprocedural laboratory examination
CPT/HCPCS: 87635; C9803

== ENCOUNTER 2021-11-02 06:48 | Day surgery (SDC) | payer MEDICARE, BC, SELFPAY ==
[2021-11-02] VITALS (7 sets, daily range): BP systolic 104–186; BP diastolic 64–105; PULSE 72–93; RESP 16–20; TEMP 36.2–36.6; O2SAT 96–98; BMI 37.7
--- NOTE | 2021-11-02 | PATH_ITS ---
[facility] Accession Number: [id number] . 01 Material submitted: . cecum - CECAL POLYP . 01 Diagnosis: Cecal Polyp, Biopsy: Tubular adenoma. [facility] 11/03/2021 1631 Local . 01 Electronically signed: . Angeles Mahan MD, Pathologist NPI- [id number] . 01 Gross description: . CECAL POLYP: Received in formalin is 1 fragment(s) of elena, soft tissue measuring 0.2 x 0.2 x 0.2 cm submitted entirely in 1 cassette(s) /MIHIR 11/03/2021 0052 Local . 01 Pathologist provided ICD-10: D12.0 . 01 CPT . 263076 Specimen Comment: A courtesy copy of this report has been sent to [phone] Performed at: 01 [facility] [address] [place] [address] [id number] MD Keegan Hernandez MD Phone: [phone]
[2021-11-02] MEDS: SODIUM CHLORIDE 0.9% 1,000 ML 150 ML IV (07:43)
--- NOTE | 2021-11-02 07:59 | PM.HP.1 ---
History of Present Illness History of Present Illness Date Patient Seen: 11/02/21 Time Patient Seen: 08:00 Chief complaint: Colonoscopy Narrative: Personal history of colon polyps Patient History Medical History Benign prostatic hyperplasia with urinary obstruction and other lower urinary tract symptoms DM (diabetes mellitus) Fusion of lumbar spine History of BPH History of epididymitis HTN (hypertension) Hx of squamous cell carcinoma of skin Hyperlipidemia Osteoarthritis Painful total knee replacement, right Right bundle branch block Sleep apnea Surgical History History of back surgery History of knee replacement History of total replacement of right shoulder joint Hx of foot surgery Hx of hand surgery S/p reverse total shoulder arthroplasty Family & Social History Social History: household members spouse Tobacco & Substance use: Smoking Status Never smoker alcohol intake current alcohol intake frequency a few times a week Substance Use Type does not use Meds Home Medications and Allergies Home Medications Medication Instructions Recorded Confirmed Type losartan 100 mg tablet 100 mg PO QDAY ##0 06/15/16 11/02/21 History lovastatin 40 mg tablet 40 mg PO QPM ##0 06/15/16 11/02/21 History meloxicam 7.5 mg tablet (Mobic) 7.5 mg PO PRN PRN pain ##0 06/15/16 11/02/21 History metformin 500 mg tablet,extended 1,000 mg PO BID ##0 06/15/16 11/02/21 History release 24 hr (Glucophage XR) vitamins A,C,S-toor-yfyyqe 14,320 1 cap PO BID ##0 06/15/16 11/02/21 History unit-226 mg-200 unit capsule (PreserVision AREDS) aspirin 81 mg tablet,delayed 81 mg PO BID ##60 07/01/16 11/02/21 Rx release [id number]-erngtfath-hvqjdcsg 3.5 2 - 3 drp OP TID #10 mL 06/16/17 11/02/21 Rx mg/mL-10,000 unit/mL-0.1% eye drops alprazolam 1 mg tablet 1 mg PO TID PRN Anxiety 07/02/21 11/02/21 History cholecalciferol (vitamin D3) 25 25 mcg PO DAILY 07/02/21 11/02/21 History mcg (1,000 unit) capsule tamsulosin 0.4 mg capsule 0.4 mg PO BEDTIME #90 caps 07/02/21 11/02/21 Rx turmeric 400 mg capsule 400 mg PO DAILY 07/02/21 11/02/21 History Allergies Allergy/AdvReac Type Severity Reaction Status Date / Time No Known Drug Allergies Allergy Unverified 07/02/21 10:55 Review of Systems Review of Systems ROS: Yes All systems reviewed with the patient and are negative except as otherwise documented Exam Vital Signs (past 8 hours): - 11/02/21 07:17 Temperature 97.2 F L Pulse Rate 93 H Respiratory Rate 20 Blood Pressure 186/105 H Pulse Oximetry 97 Oxygen Delivery Method Room Air Oxygen Delivery Method Room Air Const General: cooperative HENMT Head: normal to inspection Eyes General: appearance normal, both eyes and all related structures Neck Neck: normal visual inspection Chest Chest: normal inspection of the chest Resp Effort & Inspection: normal respiratory effort Cardio Rate: regular rate GI Inspection: normal to inspection Skin General: no rashes or lesions noted Neuro General: patient alert and patient awake Extrem General: normal to inspection and no pedal edema Psych Appearance: grossly normal Assessment & Plan Assessment & Plan narrative: 75-year-old male with a personal history of colon polyps. Colonoscopy is pursued today. Time Spent With Patient Critical Care time: I spent a total of [] minutes of critical care time on this patient's care today; this time is exclusive of procedural time.
--- NOTE | 2021-11-02 08:01 | PM.PREOP ---
Pre-operative Note COVID-19 COVID-19 status: Negative Result date/Date tested (Pos, Neg/Pending): 10/30/21 Criteria for continued procedure: Possibility delay results in more complex future surgery or treatment Interval Note History & Physical reviewed/Exam performed by Physician: Yes Changes to H&P: No ASA Class (for procedural sedation): III
--- NOTE | 2021-11-02 08:29 | PM.OP.COLON ---
Operative Date/Time/Diagnoses Date of procedure: 11/02/21 Time of procedure: 08:29 Pre-op diagnosis: Colon polyps history Post-op diagnosis: same Procedure & Clinicians Study performed: Colonoscopy with hot snare polypectomy and cold forceps polypectomy Same procedure as scheduled: Yes Indications: Colon polyp history Surgeon: Jay Smith Procedure Notes SCOAP/Timeout: Done Procedure in detail: After the risks and benefits were explained, written and verbal informed consent was obtained. The patient was brought into the procedure room and placed into the left lateral decubitus position. Please see nurse modular home crew member notes for sedation details. Digital rectal examination was accomplished. The scope was introduced into the patient and advanced under direct visualization to the cecum as identified by the appendiceal orifice and ileocecal valve. The scope was slowly withdrawn to carefully examine the mucosa for any defects or lesions. Comprehensive imaging was accomplished throughout the rectum including the dentate line. The colon was decompressed, the scope was then removed from the patient who tolerated the procedure well. Bowel prep adequate after copious irrigation and suction. Adult colonoscope Scope withdrawal time: 12 minutes Sedation minutes: 18 Complications: none Impression: Patient had diverticulosis from sigmoid all the way through into ascending colon. There was a diminutive polyp removed in the cecum with cold forceps. In the ascending colon there was a 6 mm sessile polyp removed with hot snare. This was resected but lost in the fluid debris so not retrieved. Moderate grade 2 internal hemorrhoids were noted. Within the limitations of bowel prep no additional pathology was appreciated. Endoscopic diagnosis 1. Diverticulosis 2. Colon polyps 3. Grade 2 hemorrhoids Post-procedure Plan for aftercare: 1. Await histopathology 2. Repeat colonoscopy will likely be suggested for 3 years time. Disposition: PACU
--- NOTE | 2021-11-02 09:06 | SUR.PHASEII ---
0900-Discharged via wheelchair to car with glasses and instructions.
== END 2021-11-02 09:00 | disposition home or self-care (01) ==
PROVIDERS: Family Provider Family Medicine; PCP Family Medicine; Referring Provider Internal Medicine Gastroenterology; Visit Provider Internal Medicine Gastroenterology
PROC: 0DJD8ZZ Inspection of Lower Intestinal Tract, Via Natural or Artificial Opening Endoscopic (ICD-10-PCS; CPT 45378; principal; 2021-11-02 08:00)
DX: Z12.11 Encounter for screening for malignant neoplasm of colon (principal); Z86.010 Personal history of colon polyps; D12.0 Benign neoplasm of cecum; K57.30 Diverticulosis of large intestine without perforation or abscess without bleeding; K64.1 Second degree hemorrhoids
CPT/HCPCS: 45385; 45380; J2405; J2704

== ENCOUNTER → 2022-06-22 09:59 | Outpatient (CLI) | payer MEDICARE, BC, SELFPAY ==
[2022-06-22 11:08] LABS: Prostate Specific Antigen 3.26 ng/mL (0.10-4.00)
== END ==
PROVIDERS: Family Provider Family Medicine; PCP Family Medicine; Referring Provider Urology; Visit Provider Urology
DX: N40.1 Benign prostatic hyperplasia with lower urinary tract symptoms (principal); N13.8 Other obstructive and reflux uropathy
CPT/HCPCS: 36415; 84153

== ENCOUNTER → 2022-10-07 07:56 | Outpatient (CLI) | payer MEDICARE, BC, SELFPAY | PROVIDERS: Family Provider Family Medicine; PCP Family Medicine; Visit Provider Urology | DX: N40.1 Benign prostatic hyperplasia with lower urinary tract symptoms (principal); N13.8 Other obstructive and reflux uropathy; R33.9 Retention of urine, unspecified; R97.20 Elevated prostate specific antigen [PSA] | CPT/HCPCS: 51798; 81002; 87077; 87086; 87186; 99213 ==

== ENCOUNTER → 2023-04-06 08:18 | Outpatient (CLI) | payer MEDICARE, BC, SELFPAY | PROVIDERS: Family Provider Family Medicine; PCP Family Medicine; Visit Provider Urology | DX: N40.1 Benign prostatic hyperplasia with lower urinary tract symptoms (principal); N13.8 Other obstructive and reflux uropathy; R33.9 Retention of urine, unspecified; R82.81 Pyuria; Z87.438 Personal history of other diseases of male genital organs | CPT/HCPCS: 51798; 81002; 87077; 87086; 87186; 99214 ==

== ENCOUNTER → 2023-06-06 10:53 | Outpatient (CLI) | payer MEDICARE, BC, SELFPAY ==
[2023-06-06 13:33] LABS: Prostate Specific Antigen 3.61 ng/mL (0.10-4.00)
== END ==
PROVIDERS: Family Provider Family Medicine; PCP Family Medicine; Referring Provider Urology; Visit Provider Urology
DX: R97.20 Elevated prostate specific antigen [PSA] (principal)
CPT/HCPCS: 36415; 84153

== ENCOUNTER → 2023-10-05 09:23 | Outpatient (CLI) | payer MEDICARE, BC, SELFPAY | PROVIDERS: Family Provider Family Medicine; PCP Family Medicine; Visit Provider Urology | DX: R33.9 Retention of urine, unspecified (principal) | CPT/HCPCS: 87086 ==

== ENCOUNTER → 2023-10-28 11:19 | Outpatient (CLI) | payer MEDICARE, BC, SELFPAY | PROVIDERS: Family Provider Family Medicine; PCP Family Medicine; Visit Provider Urology | DX: R33.9 Retention of urine, unspecified (principal) | CPT/HCPCS: 87077; 87086; 87186 ==

== ENCOUNTER → 2023-11-19 09:01 | Outpatient (CLI) | payer MEDICARE, BC, SELFPAY ==
[2023-11-19 10:20] LABS: Appearance Urine UA CLEAR; Bilirubin Urine UA NEGATIVE (NEGATIVE); Color Urine UA YELLOW; Glucose Urine UA NEGATIVE (Negative); Ketones Urine UA NEGATIVE (NEGATIVE); Leukocyte Esterase Urine UA TRACE (NEGATIVE); Nitrite Urine UA NEGATIVE (Negative); Occult Blood Urine UA NEGATIVE (Negative); Protein Urine UA NEGATIVE (Negative); Specific Gravity Urine UA 1.015 (1.000-1.035); Urobilinogen Urine UA 0.2 E.U./dL (0.2)
[2023-11-19 10:26] LABS: Amorphous Sediment Urine 1+; Bacteria Urine None Seen; Culture Indicated Urine Specimen Cultured; RBC Urine None Seen (0-5/HPF); Squamous Epithelial Cell Urine 1-5 /HPF (0-5/HPF); Urine Volume 10mL (spun); WBC Urine 1-5/HPF (0-5/HPF)
== END ==
LOC: LAB 09:03
PROVIDERS: Family Provider Family Medicine; PCP Family Medicine; Referring Provider Urology; Visit Provider Urology
DX: N39.0 Urinary tract infection, site not specified (principal)
CPT/HCPCS: 81001; 87086